=== PATIENT | male | born 1935 | race Caucasian/White ===

== ENCOUNTER 2022-11-08 16:12 | Emergency (ER) | payer MEDICARE, SELFPAY ==
[2022-11-08] VITALS (15 sets, daily range): BP systolic 109–148; BP diastolic 57–81; PULSE 58–70; RESP 13–24; TEMP 36.4; O2SAT 94–98; BMI 25.5
--- NOTE | 2022-11-08 16:37 | ED.GENADUL1 ---
HPI - General Adult General Chief complaint: Dizziness Stated complaint: WEAKNESS Time Seen by Provider: 11/08/22 16:28 Source: patient Mode of arrival: Wheelchair Limitations: no limitations History of Present Illness HPI narrative: this very pleasant gentleman was at a shop today when he got his right thumb caught in a vice. He says it was quite uncomfortable and started bleeding. He says he really does not like the sight of blood. Before this event occurred he felt fine going to the shop. After it happened he saw the blood and got woozy and lightheaded. He called for his family assistance and they said he was bent over and was pale and clammy. After about ten more minutes after driving him here to the hospital he felt fine and is doing fine at this time. Again before although security was good until he pinched his thumb with device and he started bleeding. He ended up putting a Band-Aid on his thumb and it stopped bleeding and it's not bleeding at this time. He does take L request because she has atrial fibrillation. He has a cardiac pacemaker but not a defibrillator. Related Data Home Medications Medication Instructions Recorded Confirmed rivaroxaban 20 mg tablet (Xarelto) 20 mg PO DAILY 11/08/22 11/08/22 Allergies Allergy/AdvReac Type Severity Reaction Status Date / Time Penicillins Allergy Severe Rash Verified 11/08/22 16:14 [facility] Social History Smoking status: Never smoker Exam Narrative Exam Narrative: This document has been composed with a new electronic medical record and dragging voice recognition system. This document may not fully inaccurately reflect the entirety of the patient encounter. Patient's awake alert pulse oximetry is ninety-six percent on room air he is in no distress the bleeding is stopped he says he feels fine at this time and has no symptoms at all. Constitutional skin is warm and dry No pallor or diaphoresis. No ecchymosis or hematomas are noted. Examination of his chest shows his lungs to be clear with no wheezes rales or rhonchi, heart sounds are consistent with atrial fibrillation with slow ventricular response as noted on his EKG.I hear no murmur. Legs show no evidence of swelling edema or deep vein thrombosis. Neurological he is awake alert cognitions good does wear hearing aids but he communicates very effectively he says he feels fine at this time. Constitutional Vital Signs, click to edit/add: Last Vital Signs Temp 97.6 F 11/08/22 16:15 Pulse 60 11/08/22 16:15 Resp 16 11/08/22 16:15 BP 109/57 11/08/22 16:15 Pulse Ox 98 11/08/22 16:15 O2 Del Method Room Air 11/08/22 16:15 Course Vital Signs Vital signs: Vital Signs Temperature 97.6 F 11/08/22 16:15 Pulse Rate 60 11/08/22 16:15 Respiratory Rate 16 11/08/22 16:15 Blood Pressure 109/57 11/08/22 16:15 Pulse Oximetry 98 11/08/22 16:15 Oxygen Delivery Method Room Air 11/08/22 16:15 Temperature 97.6 F 11/08/22 16:15 Pulse Rate 60 11/08/22 16:15 Respiratory Rate 16 11/08/22 16:15 Blood Pressure 109/57 11/08/22 16:15 Pulse Oximetry 98 11/08/22 16:15 Oxygen Delivery Method Room Air 11/08/22 16:15 Medical Decision Making MDM Narrative Medical decision making narrative: patient had a minor but painful injury to his thumb was some bleeding and what clinically is consistent with a vasovagal reaction. He does not show any acute deterioration or unstable vital signs here in the Emergency Room. His EKG shows atrial fibrillation controlled ventricular response and a appropriate functioning pacemaker. Laboratory testing was normal. He remained asymptomatic. I do not believe he needs to be admitted for any further testing at this time. Lab Data Labs: Lab Results 11/08/22 Range/Units 16:50 WBC 8.6 (4.0-11.0) 10^3/uL RBC 4.13 L (4.70-6.10) 10^6/uL Hgb 13.2 L (14.0-18.0) g/dL Hct 38.8 L (42.0-54.0) % MCV 93.9 (80.0-94.0) fL MCH 32.0 (25.9-34.0) pg MCHC 34.0 (29.9-35.2) g/dL RDW 13.0 (11.0-15.0) % Plt Count 224 (150-450) 10^3/uL MPV 9.6 (9.5-13.5) fL Neut % (Auto) 60.7 (43.0-75.0) % Lymph % (Auto) 20.0 L (20.5-60.0) % [place] % (Auto) 10.4 (1.7-12.0) % Eos % (Auto) 7.6 H (0.9-7.0) % Baso % (Auto) 0.8 (0.2-2.0) % Neut # (Auto) 5.2 (1.4-6.5) 10^3/uL Lymph # (Auto) 1.7 (1.2-3.8) 10^3/uL [place] # (Auto) 0.9 H (0.3-0.8) 10^3/uL Eos # (Auto) 0.7 (0.0-0.7) 10^3/uL Baso # (Auto) 0.1 (0.0-0.1) 10^3/uL Abs Immat Gran (auto) 0.04 H (0.00-0.03) 10^3/uL Imm/Tot Granulo (auto) 0.5 (0.0-0.5) % Sodium 138 (136-145) mmol/L Potassium 5.8 H (3.5-5.1) mmol/L Chloride 102 (98-107) mmol/L Carbon Dioxide 29.8 (21.0-32.0) mmol/L Anion Gap 12.0 BUN 41.0 H (7.0-18.0) mg/dL Creatinine 1.86 H (0.70-1.30) mg/dL Est GFR ( Amer) 42 L (>=60) Est GFR (Non-Af Amer) 35 L (>=60) BUN/Creatinine Ratio 22.0 Glucose 202 H (74-106) mg/dL Lactate 1.8 (0.4-2.0) mmol/L Calcium 9.8 (8.5-10.1) mg/dL Total Bilirubin 0.6 (0.2-1.0) mg/dL AST 25 (15-37) U/L ALT 38 (16-63) U/L Alkaline Phosphatase 75 (46-116) U/L Troponin I High Sens 34.5 (4.0-76.1) pg/mL Total Protein 8.1 (6.4-8.2) g/dL Albumin 4.0 (3.4-5.0) g/dL Globulin 4.1 g/dL Albumin/Globulin Ratio 1.0 Discharge Plan Discharge Chief Complaint: Dizziness Clinical Impression: Vaso-vagal reaction Time of Disposition Decision: 18:04 Condition: Good Prescriptions / Home Meds: No Action Xarelto 20 mg tablet 20 mg PO DAILY Instructions: Lightheadedness (ED) Stand Alone Forms: Portal Instructions Referrals: CHEPE BENTLEY [Primary Care Provider] - 1 week
--- NOTE | 2022-11-08 16:42 | ECG_ITS ---
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
[2022-11-08 17:01] LABS: Basophils Absolute Auto 0.1 10^3/uL (0.0-0.1); Basophils Percent Auto 0.8 % (0.2-2.0); Eosinophils Absolute Auto 0.7 10^3/uL (0.0-0.7); Eosinophils Percent Auto 7.6 % (0.9-7.0); Hematocrit 38.8 % (42.0-54.0); Hemoglobin 13.2 g/dL (14.0-18.0); Immature Granulocytes Abs Auto 0.04 10^3/uL (0.00-0.03); Immature Granulocytes Pct Auto 0.5 % (0.0-0.5); Lymphocytes Absolute Auto 1.7 10^3/uL (1.2-3.8); Mean Corpuscular Volume 93.9 fL (80.0-94.0); Mean Platelet Volume 9.6 fL (9.5-13.5); Monocytes Absolute Auto 0.9 10^3/uL (0.3-0.8); Monocytes Percent Auto 10.4 % (1.7-12.0); Neutrophils Absolute Auto 5.2 10^3/uL (1.4-6.5); Neutrophils Percent Auto 60.7 % (43.0-75.0); Platelet Count 224 10^3/uL (150-450); Red Blood Count 4.13 10^6/uL (4.70-6.10); White Blood Count 8.6 10^3/uL (4.0-11.0)
--- NOTE | 2022-11-08 17:08 | XR_ITS ---
The [address] [address] Patient Name: JAMEL BONDS MRN: [id number] date: 1935 Sex: M Assigned Patient Location: ED.MAIN Current Patient Location: ER Accession/Order Number: [id number] Exam Date: 11/08/2022 17:05 Report Date: 11/08/2022 17:51 At the request of: ZENY SANDOVAL Procedure: XR chest 1V EXAM: XR chest 1V HISTORY: near syncope COMPARISON: 04/02/2017 TECHNIQUE: Chest X-ray AP, 1 view FINDINGS: Support devices: Left-sided wall lead pacer device with distal leads overlying the right atrium and right ventricle. Right internal jugular approach Mediport catheter is in place. Lungs/pleura: No consolidation, effusion, or pneumothorax. Heart and mediastinum: Normal contours. Bones: No acute abnormality identified. XR/XR chest 1V Impression: No radiographic evidence of acute cardiopulmonary process. Electronically authenticated by: TINO MENSAH Date: 11/08/2022 17:51
[2022-11-08 17:16] LABS: Lactate/Lactic Acid 1.8 mmol/L (0.4-2.0)
[2022-11-08 17:23] LABS: Alanine Aminotransferase 38 U/L (16-63); Alkaline Phosphatase 75 U/L (46-116); Aspartate Amino Transferase 25 U/L (15-37); Bilirubin Total 0.6 mg/dL (0.2-1.0); Calcium 9.8 mg/dL (8.5-10.1); Carbon Dioxide 29.8 mmol/L (21.0-32.0); Chloride 102 mmol/L (98-107); Estimated GFR (African America 42 (>=60); Estimated GFR (Non-African Ame 35 (>=60); Globulin 4.1 g/dL; Glucose 202 mg/dL (74-106); Potassium 5.8 mmol/L (3.5-5.1); Sodium 138 mmol/L (136-145); Total Protein 8.1 g/dL (6.4-8.2); Troponin I High Sensitivity 34.5 pg/mL (4.0-76.1)
== END 2022-11-08 18:26 | disposition home or self-care (01) ==
PROVIDERS: Emergency Provider Emergency Medicine Emergency Medical Services; PCP Nurse Practitioner Family
DX: R55 Syncope and collapse (principal); I48.91 Unspecified atrial fibrillation; Z95.0 Presence of cardiac pacemaker; Z79.01 Long term (current) use of anticoagulants
CPT/HCPCS: 36415; 71045; 80053; 83605; 84484; 85025; 93005; 99285

== ENCOUNTER 2024-06-19 15:47 | Observation (INO) | payer MEDICARE, SELFPAY ==
[2024-06-19] VITALS (31 sets, daily range): BP systolic 137–164; BP diastolic 74–76; PULSE 58–64; TEMP 36.7–37.6; O2SAT 90–96; BMI 26.6; BMI 27.4
--- NOTE | 2024-06-19 16:06 | ECG_ITS ---
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 Measurements Intervals [place] Rate: 58 P: -58993 HI: -36551 QRS: -66 QRSD: 182 T: 117 QT: 476 QTc: 472 Interpretive Statements Atrial flutter 84476 Electronic ventricular pacemaker Abnormal ECG Compared to ECG 11/08/2022 16:17:11 Atrial flutter has replaced Atrial fibrillation Electronically Signed On 06-19-2024 20:43:45 EDT by JACINDA CHIRINOS M.D.
[2024-06-19 16:15] LABS: Basophils Absolute Auto 0.1 10^3/uL (0.0-0.1); Basophils Percent Auto 0.6 % (0.2-2.0); Eosinophils Absolute Auto 0.3 10^3/uL (0.0-0.7); Eosinophils Percent Auto 2.2 % (0.9-7.0); Hematocrit 38.9 % (42.0-54.0); Hemoglobin 13.2 g/dL (14.0-18.0); Immature Granulocytes Abs Auto 0.03 10^3/uL (0.00-0.03); Immature Granulocytes Pct Auto 0.3 % (0.0-0.5); Lymphocytes Percent Auto 9.2 % (20.5-60.0); Mean Corpuscular HGB Conc 33.9 g/dL (29.9-35.2); Mean Corpuscular Hemoglobin 33.6 pg (25.9-34.0); Monocytes Absolute Auto 1.2 10^3/uL (0.3-0.8); Neutrophils Absolute Auto 8.6 10^3/uL (1.4-6.5); Neutrophils Percent Auto 76.7 % (43.0-75.0); Platelet Count 226 10^3/uL (150-450); Red Blood Count 3.93 10^6/uL (4.70-6.10); Red Cell Distribution Width 13.7 % (11.0-15.0); White Blood Count 11.3 10^3/uL (4.0-11.0)
[2024-06-19 16:27] LABS: Influenza Virus A Antigen Negative; Influenza Virus B Antigen Negative; Internal Control Within Normal Limits; SARS-CoV-2 Ag NEGATIVE (NEGATIVE)
[2024-06-19 16:33] LABS: Anion Gap 12.4
[2024-06-19 16:40] LABS: Alanine Aminotransferase 21 U/L (16-63); Albumin Level 3.6 g/dL (3.4-5.0); Alkaline Phosphatase 69 U/L (46-116); Aspartate Amino Transferase 27 U/L (15-37); BUN Creatinine Ratio 19.3; Bilirubin Total 0.8 mg/dL (0.2-1.0); Carbon Dioxide 32.1 mmol/L (21.0-32.0); Chloride 99 mmol/L (98-107); Estimated GFR (African America 36 (>=60 mL/min/1.73m^2); Estimated GFR (Non-African Ame 30 (>=60 mL/min/1.73m^2); Globulin 3.6 g/dL; Glucose 141 mg/dL (74-106); Magnesium 2.2 mg/dL (1.8-2.4); Potassium 5.5 mmol/L (3.5-5.1); Sodium 138 mmol/L (136-145); Total Protein 7.2 g/dL (6.4-8.2); Troponin I High Sensitivity 47.3 pg/mL (4.0-76.1)
--- NOTE | 2024-06-19 16:43 | ED_ITS ---
HPI - Altered Mental Status General Chief Complaint: Altered Mental Status Stated Complaint: General WEAKNESS Time Seen by Provider: 06/19/24 16:00 Source: family Mode of arrival: ambulance History of Present Illness HPI narrative: cc -confusion with flulike illness The gives the majority of the history. Patient was brought in by EMS for evaluation after the noticed increasing confusion over the last 24 hours. Patient has been increasingly weak, fatigued following development of a flulike illness a few days ago. Patient has cough and congestion without fever at home. No GI or symptoms. No known ill contacts. Patient denies any pain or focal weakness. He just says he has no energy. said he has not been eating the way that he normally does but she believes he has been taking an appropriate amount of fluids. Related Data Home Medications ?Medication ?Instructions ?Recorded ?Confirmed rivaroxaban 20 mg tablet (Xarelto) 20 mg PO DAILY 11/08/22 06/19/24 atorvastatin 40 mg tablet 40 mg PO .qhs 06/19/24 06/19/24 dapagliflozin propanediol 10 mg 10 mg PO QAM 06/19/24 06/19/24 tablet (Farxiga) digoxin 125 mcg (0.125 mg) tablet 0.125 mg PO QDAY 06/19/24 06/19/24 fluoxetine 20 mg capsule 20 mg PO QAM 06/19/24 06/19/24 furosemide 40 mg tablet 40 mg PO QDAY 06/19/24 06/19/24 insulin aspar prot-insulin aspart 38 unit subcut TIDWMEAL 06/19/24 06/19/24 100 unit/mL (70-30) subcutaneous pen (Novolog Mix 70-30FlexPen U-100) levothyroxine 25 mcg tablet 25 mcg PO QAM 06/19/24 06/19/24 losartan 50 mg tablet 50 mg PO QDAY 06/19/24 06/19/24 metoprolol succinate 25 mg 25 mg PO QDAY 06/19/24 06/19/24 tablet,extended release 24 hr rivaroxaban 15 mg tablet (Xarelto) 15 mg PO BID 06/19/24 06/19/24 tamsulosin 0.4 mg capsule 0.4 mg PO Q24H 06/19/24 06/19/24 tizanidine 2 mg capsule 2 mg PO .qhs PRN muscle spasticity 06/19/24 06/19/24 tramadol 50 mg tablet 50 mg PO Q12H PRN pain 06/19/24 06/19/24 triamcinolone acetonide 0.025 % 1 applic topical QDAY PRN rash 06/19/24 06/19/24 topical cream Allergies Allergy/AdvReac Type Severity Reaction Status Date / Time Penicillins Allergy Severe Rash Verified 06/19/24 15:53 PFSH PFSH Social History Smoking status: Never smoker Little interest or pleasure in doing things: not at all Feeling down, depressed, or hopeless: not at all Exam Narrative Exam Narrative: Nurses notes and vital signs reviewed and patient is not hypoxic. afebrile General: Well-appearing and in no apparent distress. Skin: Warm, dry, no pallor noted. No rash. Head: Normocephalic, atraumatic. Neck: Supple, non-tender. No lymphadenopathy. No meningismus. Eye: Pupils are equal, round and EOMI. No scleral icterus. Ears, Nose, Mouth, and Throat: TM are clear, no posterior oropharynx erythema, uvula is mid-line. Oral mucosa is moist. Nasal mucosal hypertrophy Cardiovascular: Regular Rate and Rhythm without murmur, gallop or rub/borderline bradycardia. Respiratory: No accessory muscle use or respiratory distress. Lungs with bibasilar rales Musculoskeletal: normal ROM, no calf or popliteal tenderness, no lower extremity edema/swelling GI: Abdomen is soft, non-distended. Normal bowel sounds. No tenderness to palpation. No rebound, guarding, or rigidity noted. Neurological: A&O x4 but has some trouble answering questions. The says his awareness and mental acuity is less than normal. No cranial nerve dysfunction observed. No truncal ataxia. Moves all extremities. Sensation intact. Psychiatric: Cooperative and interactive. Normal mood and affect. Constitutional Vital Signs, click to edit/add: Last Vital Signs Temp 98.9 F 06/19/24 15:53 Pulse 60 06/19/24 17:40 Resp 15 06/19/24 17:40 BP 149/76 H 06/19/24 15:53 Pulse Ox 94 L 06/19/24 17:40 O2 Del Method Room Air 06/19/24 15:53 Course Vital Signs Vital signs: Vital Signs Temperature 98.9 F 06/19/24 15:53 Pulse Rate 58 L 06/19/24 15:53 Respiratory Rate 18 06/19/24 15:53 Blood Pressure 149/76 H 06/19/24 15:53 Pulse Oximetry 96 06/19/24 15:53 Oxygen Delivery Method Room Air 06/19/24 15:53 Temperature 98.9 F 06/19/24 15:53 Pulse Rate 60 06/19/24 17:40 Respiratory Rate 15 06/19/24 17:40 Blood Pressure 149/76 H 06/19/24 15:53 Pulse Oximetry 94 L 06/19/24 17:40 Oxygen Delivery Method Room Air 06/19/24 15:53 MDM - Altered Mental Status MDM Narrative Medical decision making narrative: Swabs for COVID and influenza were obtained. Portable chest x-ray obtained. Blood and urine obtained and sent for testing as well. He was given 1L nS IVF. He tested for COVID and influenza. Chest x-ray negative. White blood cell count minimally elevated 11.3. Electrolytes show elevated potassium at 5.5. BUN and creatinine are elevated at 41 and 2.1, respectively. Pt ordered to receive IV insulin, D50, calcium and bicarbonate, along with additional NS IVF Troponin negative. BNP elevated at 4285, likely associated with elevated BUN/creatinine. Magnesium normal at 2.2. LFTs negative. Urinalysis - negative. and I discussed the patient's results - she sad that he does not have prior history of kidney disease. I called and spoke with Dr Paniagua - we will admit the pt to telemetry, obs, for treatment of the hyperkalemia and acute renal injury. He also has a flu-like illness. Lab Data Attestation: I reviewed the patient's lab results. Labs: Lab Results 06/19/24 06/19/24 06/19/24 Range/Units 16:00 16:05 17:10 WBC 11.3 H (4.0-11.0) 10^3/uL RBC 3.93 L (4.70-6.10) 10^6/uL Hgb 13.2 L (14.0-18.0) g/dL Hct 38.9 L (42.0-54.0) % MCV 99.0 H (80.0-94.0) fL MCH 33.6 (25.9-34.0) pg MCHC 33.9 (29.9-35.2) g/dL RDW 13.7 (11.0-15.0) % Plt Count 226 (150-450) 10^3/uL MPV 10.0 (9.5-13.5) fL Neut % (Auto) 76.7 H (43.0-75.0) % Lymph % (Auto) 9.2 L (20.5-60.0) % [place] % (Auto) 11.0 (1.7-12.0) % Eos % (Auto) 2.2 (0.9-7.0) % Baso % (Auto) 0.6 (0.2-2.0) % Neut # (Auto) 8.6 H (1.4-6.5) 10^3/uL Lymph # (Auto) 1.0 L (1.2-3.8) 10^3/uL [place] # (Auto) 1.2 H (0.3-0.8) 10^3/uL Eos # (Auto) 0.3 (0.0-0.7) 10^3/uL Baso # (Auto) 0.1 (0.0-0.1) 10^3/uL Abs Immat Gran (auto) 0.03 (0.00-0.03) 10^3/uL Imm/Tot Granulo (auto) 0.3 (0.0-0.5) % Sodium 138 (136-145) mmol/L Potassium 5.5 H (3.5-5.1) mmol/L Chloride 99 (98-107) mmol/L Carbon Dioxide 32.1 H (21.0-32.0) mmol/L Anion Gap 12.4 BUN 41.0 H (7.0-18.0) mg/dL Creatinine 2.12 H (0.70-1.30) mg/dL Est GFR ( Amer) 36 L (>=60 mL/min/1.73m^2) Est GFR (Non-Af Amer) 30 L (>=60 mL/min/1.73m^2) BUN/Creatinine Ratio 19.3 Glucose 141 H (74-106) mg/dL Calcium 9.0 (8.5-10.1) mg/dL Magnesium 2.2 (1.8-2.4) mg/dL Total Bilirubin 0.8 (0.2-1.0) mg/dL AST 27 (15-37) U/L ALT 21 (16-63) U/L Alkaline Phosphatase 69 (46-116) U/L Troponin I High Sens 47.3 (4.0-76.1) pg/mL NT-Pro-B Natriuret Pep 4285.0 H* (<=1800.0) pg/mL Total Protein 7.2 (6.4-8.2) g/dL Albumin 3.6 (3.4-5.0) g/dL Globulin 3.6 g/dL Albumin/Globulin Ratio 1.0 Urine Color Lt. yellow (YELLOW) Urine Clarity Clear (CLEAR) Urine pH 7.5 (5.0-9.0) Ur Specific [place] 1.015 (1.005-1.025) Urine Protein 30 A (NEG/TRACE) mg/dL Urine Glucose (UA) 500 A (NEGATIVE) mg/dL Urine Ketones Negative (NEGATIVE) mg/dL Urine Occult Blood Negative (NEGATIVE) Urine Nitrite Negative (NEGATIVE) Urine Bilirubin Negative (NEGATIVE) Urine Urobilinogen 0.2 (0.2-1.0) EU/dL Ur Leukocyte Esterase Negative (NEGATIVE) Urine RBC 0-2 (0-2) #/HPF Urine WBC 0-2 A (NONE SEEN) #/HPF Ur Squamous Epith Cells Rare (NONE/RARE) #/LPF Urine Crystals None seen (None Seen) #/HPF Urine Bacteria Trace A (NONE SEEN) #/HPF Urine Casts None seen (NONE SEEN) #/LPF Urine Mucus Trace A (NONE SEEN) Ur Culture Indicated? No Influenza Type A Ag Negative Influenza Type B Ag Negative SARS-CoV-2 Ag (CV2AG) Negative (NEGATIVE) Imaging Data Chest x-ray: Radiologist's impression: No acute cardiopulmonary process ECG Data Attestation: I personally reviewed and interpreted this ECG as follows: Interpretation: EKG interpretation: Emergency Department physician interpretation. Electronic ventricular pacemaker Discharge Plan Discharge Chief Complaint: Altered Mental Status Clinical Impression: Acute hyperkalemia, Acute kidney injury, Acute confusion, Viral illness Patient Disposition: Admitted as Observation Time of Disposition Decision: 17:58 Additional Instructions: Dr Paniagua's service
[2024-06-19 17:42] LABS: Bilirubin Urine NEGATIVE (NEGATIVE); Blood Urine NEGATIVE (NEGATIVE); Clarity Urine CLEAR (CLEAR); Color Urine LT. YELLOW (YELLOW); Glucose Urine UA 500 mg/dL (NEGATIVE); Ketones Urine NEGATIVE (NEGATIVE); Leukocyte Esterase Urine NEGATIVE (NEGATIVE); Nitrite Urine NEGATIVE (NEGATIVE); Protein Urine 30 mg/dL (NEG/TRACE); Specific Gravity Urine 1.015 (1.005-1.025); Urobilinogen Urine 0.2 EU/dL (0.2-1.0); pH Urine 7.5 (5.0-9.0)
[2024-06-19 17:50] LABS: Bacteria Urine TRACE #/HPF (NONE SEEN); Cast Seen? NONE SEEN #/LPF (NONE SEEN); Crystals Seen? None Seen #/HPF (None Seen); Mucus Urine TRACE (NONE SEEN); RBC Urine 0-2 #/HPF (0-2); Squamous Epithelial Cell Urine RARE #/LPF (NONE/RARE); Urine Culture Indicated NO; WBC Urine 0-2 #/HPF (NONE SEEN)
[2024-06-19] MEDS: CALCIUM GLUCONATE 1,000 MG/10 ML VIAL 1000 MG IVP (18:14)
[2024-06-19] MEDS: INSULIN REGULAR, HUMAN (100 UNIT/ML) 10 ML MDV 10 UNIT IV (18:25)
[2024-06-19] MEDS: DEXTROSE 50 %-WATER 25 GM/50 ML SYRINGE IV (18:27)
[2024-06-19] MEDS: SODIUM BICARBONATE 8.4 % 50 MEQ/50 ML SYRINGE IV (18:30)
[2024-06-19] MEDS: TRAMADOL HCL 50 MG TABLET PO (18:39)
[2024-06-19] MEDS: 0.9 % SODIUM CHLORIDE 1,000 ML 200 ML IV (18:40)
--- NOTE | 2024-06-19 19:10 | P.HP_ITS ---
HPI H&P: HPI History of Present Illness Chief complaint: General WEAKNESS Narrative: Patient had no concerns yesterday, woke up this morning and just fatigued and went back to bed and, just having increasing weakness and fatigue since that time, denies chest pain does have a slight cough, no abdominal complaints swelling he says is at his baseline in his lower extremities when I saw patient in the emergency room, resting comfortably in bed, just very somnolent falling asleep easily, again did not complain of anything different just the fatigue Opioid HPI Opioid Management Most Recent Pain and Opioid Data: Last MAY Pain Assessment 06/19/24 18:39 Review of Systems ROS Status of ROS 10 or more systems reviewed and unremark able except as noted in history and below PFSH PFSH Social History Smoking status: Never smoker Little interest or pleasure in doing things: not at all Feeling down, depressed, or hopeless: not at all Meds Home Medications and Allergies Home Medications ?Medication ?Instructions ?Recorded ?Confirmed ?Type rivaroxaban 20 mg tablet (Xarelto) 20 mg PO DAILY 11/08/22 06/19/24 History atorvastatin 40 mg tablet 40 mg PO .qhs 06/19/24 06/19/24 History dapagliflozin propanediol 10 mg 10 mg PO QAM 06/19/24 06/19/24 History tablet (Farxiga) digoxin 125 mcg (0.125 mg) tablet 0.125 mg PO QDAY 06/19/24 06/19/24 History fluoxetine 20 mg capsule 20 mg PO QAM 06/19/24 06/19/24 History furosemide 40 mg tablet 40 mg PO QDAY 06/19/24 06/19/24 History insulin aspar prot-insulin aspart 38 unit subcut TIDWMEAL 06/19/24 06/19/24 History 100 unit/mL (70-30) subcutaneous pen (Novolog Mix 70-30FlexPen U-100) levothyroxine 25 mcg tablet 25 mcg PO QAM 06/19/24 06/19/24 History losartan 50 mg tablet 50 mg PO QDAY 06/19/24 06/19/24 History metoprolol succinate 25 mg 25 mg PO QDAY 06/19/24 06/19/24 History tablet,extended release 24 hr rivaroxaban 15 mg tablet (Xarelto) 15 mg PO BID 06/19/24 06/19/24 History tamsulosin 0.4 mg capsule 0.4 mg PO Q24H 06/19/24 06/19/24 History tizanidine 2 mg capsule 2 mg PO .qhs PRN muscle spasticity 06/19/24 06/19/24 History tramadol 50 mg tablet 50 mg PO Q12H PRN pain 06/19/24 06/19/24 History triamcinolone acetonide 0.025 % 1 applic topical QDAY PRN rash 06/19/24 06/19/24 History topical cream Allergies Allergy/AdvReac Type Severity Reaction Status Date / Time Penicillins Allergy Severe Rash Verified 06/19/24 15:53 Exam Constitutional Vital Signs, click to edit/add: Last Vital Signs Temp 99.6 F 06/19/24 18:40 Pulse 60 06/19/24 18:40 Resp 16 06/19/24 18:40 BP 151/74 H 06/19/24 18:40 Pulse Ox 93 L 06/19/24 18:40 O2 Del Method Room Air 06/19/24 18:40 Documenting provider has reviewed patient's vital signs: yes Common normals: apparent distress (Appears fatigued) Chest Common normals: inspection of chest normal Respiratory Common normals: normal respiratory effort, no retractions and clear to auscultation bilaterally Cardio Common normals: regular rate and no murmurs; irregular rhythm Rhythm: abnormal rhythm GI Common normals: Normal to inspection, nondistended, normoactive bowel sounds present, soft to palpation and non-tender Extremity Common normals: abnormal to inspection (2+ edema, has baseline) General: normal exam except as noted Results Labs Labs: Short CBC 06/19/24 Range/Units 16:05 WBC 11.3 H (4.0-11.0) 10^3/uL Hgb 13.2 L (14.0-18.0) g/dL Hct 38.9 L (42.0-54.0) % Plt Count 226 (150-450) 10^3/uL BMP 06/19/24 16:05 Sodium 138 Potassium 5.5 H Chloride 99 Carbon Dioxide 32.1 H BUN 41.0 H Creatinine 2.12 H Glucose 141 H Calcium 9.0 Liver Function 06/19/24 Range/Units 16:05 Total Bilirubin 0.8 (0.2-1.0) mg/dL AST 27 (15-37) U/L ALT 21 (16-63) U/L Alkaline Phosphatase 69 (46-116) U/L Albumin 3.6 (3.4-5.0) g/dL Urine 06/19/24 Range/Units 17:10 Urine Color Lt. yellow (YELLOW) Urine Clarity Clear (CLEAR) Urine pH 7.5 (5.0-9.0) Ur Specific [place] 1.015 (1.005-1.025) Urine Protein 30 A (NEG/TRACE) mg/dL Urine Glucose (UA) 500 A (NEGATIVE) mg/dL Assessment and Plan Assessment and Plan (1) Acute confusion: (2) Acute kidney injury: (3) Acute hyperkalemia: Plan Admission findings: Mild respiratory distress, mild leukocytosis, hyperkalemia and acute kidney injury stage II with a baseline creatinine of 1.0, admission creatinine over 2 with decreased urine output would make it acute kidney injury stage II Likely viral illness resulting in severe fatigue, mild altered mental status- will check CT scan of head, no nuchal rigidity to warrant or suggest meningitis Acute kidney injury stage II-gentle IV fluids as he has elevated BNP but this is likely secondary to the acute kidney injury, troponin negative Hyperkalemia-given multiple things in ER we will just repeat in a.m. Hyperglycemia-repeat in a.m. Elevated BNP-it is uncertain what his baseline is Diabetes mellitus-insulin sliding scale Atrial flutter-rate fairly controlled, check Lanoxin level, maintain on chronic anticoagulation Chronic combined congestive heart failure-hold medications currently Hypertension-continue with home medications except holding losartan BPH-continue with home medications Low back pain continue with home medications Admission status patient with acute kidney injury stage II-slightly better than 50% chance of being improved to the point that he can be discharged home tomorrow's will start patient off as observation status, if not significantly improved tomorrow will require inpatient admission as he will be treated with medically necessary treatment over 2 midnights Urinary Catheter Management Urinary Catheter Management Straight: Cath placed during this visit: yes Urethral indwelling: Yes Reason for continuing: measure accurate output Insertion date: 06/19/24 Insertion time: 17:16
[2024-06-19 22:03] LABS: Hematocrit 38.5 % (42.0-54.0); Hemoglobin 12.9 g/dL (14.0-18.0); Mean Corpuscular HGB Conc 33.5 g/dL (29.9-35.2); Mean Corpuscular Hemoglobin 33.4 pg (25.9-34.0); Mean Corpuscular Volume 99.7 fL (80.0-94.0); Mean Platelet Volume 9.8 fL (9.5-13.5); Platelet Count 230 10^3/uL (150-450); Red Blood Count 3.86 10^6/uL (4.70-6.10); Red Cell Distribution Width 13.8 % (11.0-15.0); White Blood Count 11.3 10^3/uL (4.0-11.0)
[2024-06-19 22:09] LABS: Digoxin 0.8 ng/mL (0.9-2.0)
[2024-06-19 22:19] LABS: Glucometer 123 mg/dL (74-106)
[2024-06-19 22:21] LABS: Basophils Abs Manual 0.11 10^3/uL (0.00-0.10); Eosinophils Absolute Manual 0.11 10^3/uL (0.00-0.70); Lymphocytes Absolute Manual 1.24 10^3/uL (1.20-3.80); Monocytes Absolute Manual 1.13 10^3/uL (0.30-0.80)
[2024-06-19] MEDS: RIVAROXABAN 10 MG TABLET 15 MG PO (22:26)
[2024-06-19] MEDS: TAMSULOSIN HCL 0.4 MG CAPSULE PO (22:26)
[2024-06-19] MEDS: METOPROLOL SUCCINATE 25 MG TAB.ER.24H PO (22:26)
[2024-06-19] MEDS: DIGOXIN 125 MCG TABLET PO (22:27)
[2024-06-20] VITALS (11 sets, daily range): BP systolic 127–138; BP diastolic 64–69; PULSE 59–69; TEMP 36.7–36.8; O2SAT 90–95
[2024-06-20] MEDS: LACTATED RINGER'S SOLUTION 1,000 ML 75 ML IV (00:05)
[2024-06-20 02:12] LABS: BUN Creatinine Ratio 18.8; Calcium 8.6 mg/dL (8.5-10.1); Carbon Dioxide 29.9 mmol/L (21.0-32.0); Chloride 101 mmol/L (98-107); Estimated GFR (African America 40 (>=60 mL/min/1.73m^2); Estimated GFR (Non-African Ame 33 (>=60 mL/min/1.73m^2); Glucose 165 mg/dL (74-106); Potassium 4.9 mmol/L (3.5-5.1); Sodium 138 mmol/L (136-145)
[2024-06-20] MEDS: LEVOTHYROXINE SODIUM 25 MCG TABLET PO (06:04)
[2024-06-20 06:28] LABS: PCO2 VBG 35.3 mmHg (40.0-52.0); pH VBG 7.493 (7.330-7.430)
[2024-06-20 07:00] LABS: Digoxin 0.9 ng/mL (0.9-2.0)
[2024-06-20 07:06] LABS: Alanine Aminotransferase 19 U/L (16-63); Albumin Globulin Ratio 0.9; Alkaline Phosphatase 57 U/L (46-116); Aspartate Amino Transferase 17 U/L (15-37); BUN Creatinine Ratio 19.1; Bilirubin Total 0.6 mg/dL (0.2-1.0); Calcium 8.8 mg/dL (8.5-10.1); Carbon Dioxide 26.7 mmol/L (21.0-32.0); Chloride 101 mmol/L (98-107); Estimated GFR (African America 44 (>=60 mL/min/1.73m^2); Estimated GFR (Non-African Ame 36 (>=60 mL/min/1.73m^2); Globulin 3.4 g/dL; Glucose 130 mg/dL (74-106); Magnesium 2.1 mg/dL (1.8-2.4); Potassium 4.7 mmol/L (3.5-5.1); Sodium 136 mmol/L (136-145); Total Protein 6.4 g/dL (6.4-8.2)
[2024-06-20 07:13] LABS: Troponin I High Sensitivity 86.2 pg/mL (4.0-76.1)
[2024-06-20 07:27] LABS: Glucometer 157 mg/dL (74-106)
[2024-06-20] MEDS: METOPROLOL SUCCINATE 25 MG TAB.ER.24H PO (08:48)
[2024-06-20] MEDS: DIGOXIN 125 MCG TABLET PO (08:48)
[2024-06-20] MEDS: TAMSULOSIN HCL 0.4 MG CAPSULE PO (08:48)
[2024-06-20] MEDS: INSULIN ASPART 300 UNIT/3 ML PEN SUBQ (08:49)
[2024-06-20] MEDS: RIVAROXABAN 10 MG TABLET 15 MG PO (08:49)
[2024-06-20] MEDS: FLUOXETINE HCL 20 MG CAPSULE PO (08:49)
[2024-06-20] MEDS: INSULIN ASPART PROT/INSULN ASP 70/30 300 UNIT/3 ML INSULN.PEN 38 UNIT SUBQ (08:50)
--- NOTE | 2024-06-20 09:26 | P.DS_ITS ---
DS: Providers Provider Date of admission: 06/19/24 19:40 Primary care physician: CHEPE MICHAEL Consults: 06/19/24 Consult to [facility] Manager Routine Reason for consult:: Advanced Directives 06/19/24 19:02 Consult to Pharmacy Routine Consulting Provider: Reason for consultation: Please Coram me when Med Rec is Updated Has provider been notified: No DS: Diagnosis Discharge Diagnosis (1) Acute confusion: (2) Acute kidney injury: (3) Acute hyperkalemia: Plan Admission findings: Mild respiratory distress, mild leukocytosis, hyperkalemia and acute kidney injury stage II with a baseline creatinine of 1.0, admission creatinine over 2 with decreased urine output would make it acute kidney injury stage II Likely viral illness resulting in severe fatigue, mild altered mental status- will check CT scan of head, no nuchal rigidity to warrant or suggest meningitis Acute kidney injury stage II-gentle IV fluids as he has elevated BNP but this is likely secondary to the acute kidney injury, troponin negative Hyperkalemia-given multiple things in ER we will just repeat in a.m. Hyperglycemia-repeat in a.m. Elevated BNP-it is uncertain what his baseline is Elevated Trop - Acute NSTEMI - stable - [facility]ERSON for D/C - Stress test as OP Diabetes mellitus-insulin sliding scale Atrial flutter-rate fairly controlled, check Lanoxin level, maintain on chronic anticoagulation Chronic combined congestive heart failure-hold medications currently Hypertension-continue with home medications except holding losartan BPH-continue with home medications Low back pain continue with home medications Admission status patient with acute kidney injury stage II-slightly better than 50% chance of being improved to the point that he can be discharged home tomorrow's will start patient off as observation status, if not significantly improved tomorrow will require inpatient admission as he will be treated with medically necessary treatment over 2 midnights DS: Summary Hospital Course Hospital Course: Patient was seen and evaluated in the emergency room with altered mental status, worse than his baseline, increasing weakness, patient with difficulty ambulating, workup unremarkable for viral infection isolated, patient found to have significant hyperkalemia that was treated in the emergency room, given IV fluids overnight, white blood cell count slightly elevated with left shift, no infectious etiology found but now this morning has more sinus type symptoms, high-sensitivity troponin in the ER was negative, repeat is elevated consistent with acute NSTEMI with EKG that is normal, BNP elevated secondary to hydration given yesterday, creatinine is better, patient feels much improved and back to his baseline, at this point with the acute NSTEMI, troponin trending down, patient wants to go home, will try that back on his regular medicines but decrease the Lasix to 20, follow-up with PCP for decision on stress test secondary to what was outlined above, medication see list. See PCP within the n ext week Time Spent with Patient Time attestation: Total time spent providing and/or coordinating discharge services: Exam Constitutional Vital Signs, click to edit/add: Last Vital Signs Temp 98.3 F 06/20/24 07:35 Pulse 60 06/20/24 07:35 Resp 18 06/20/24 04:00 BP 127/64 06/20/24 07:35 Pulse Ox 95 06/20/24 04:06 O2 Del Method Room Air 06/20/24 04:06 Documenting provider has reviewed patient's vital signs: yes Common normals: no apparent distress (Much improved) Chest Common normals: inspection of chest normal Respiratory Common normals: normal respiratory effort, no retractions and clear to auscultation bilaterally Cardio Common normals: regular rate and no murmurs; irregular rhythm Rhythm: abnormal rhythm GI Common normals: Normal to inspection, nondistended, normoactive bowel sounds present, soft to palpation and non-tender Extremity Common normals: abnormal to inspection (2+ edema, has baseline) General: normal exam except as noted DS: Data Data Completed and Pending Labs on day of discharge: Labs from last 24 hours 06/20/24 06/20/24 06/20/24 07:26 06:13 02:00 WBC RBC Hgb Hct MCV MCH MCHC RDW Plt Count MPV Neut % (Auto) Lymph % (Auto) Mills % (Auto) Eos % (Auto) Baso % (Auto) Neut # (Auto) Lymph # (Auto) Mills # (Auto) Eos # (Auto) Baso # (Auto) Abs Immat Gran (auto) Seg Neuts % (Manual) Lymphocytes % (Manual) Monocytes % (Manual) Eosinophils % (Manual) Basophils % (Manual) Imm/Tot Granulo (auto) Neutrophils # (Manual) Lymphocytes # (Manual) Monocytes # (Manual) Eosinophils # (Manual) Basophils # (Manual) VBG pH 7.493 H VBG pCO2 35.3 L Sodium 136 138 Potassium 4.7 4.9 Chloride 101 101 Carbon Dioxide 26.7 29.9 Anion Gap 13.0 12.0 BUN 34.0 H 36.0 H Creatinine 1.78 H 1.92 H Est GFR ( Amer) 44 L 40 L Est GFR (Non-Af Amer) 36 L 33 L BUN/Creatinine Ratio 19.1 18.8 Glucose 130 H 165 H Calcium 8.8 8.6 Magnesium 2.1 Total Bilirubin 0.6 AST 17 ALT 19 Alkaline Phosphatase 57 Troponin I High Sens 86.2 H* NT-Pro-B Natriuret Pep 8533.0 H* Total Protein 6.4 Albumin 3.0 L Globulin 3.4 Albumin/Globulin Ratio 0.9 Urine Color Urine Clarity Urine pH Ur Specific [place] Urine Protein Urine Glucose (UA) Urine Ketones Urine Occult Blood Urine Nitrite Urine Bilirubin Urine Urobilinogen Ur Leukocyte Esterase Urine RBC Urine WBC Ur Squamous Epith Cells Urine Crystals Urine Bacteria Urine Casts Urine Mucus Ur Culture Indicated? Digoxin 0.9 Influenza Type A Ag Influenza Type B Ag SARS-CoV-2 Ag (CV2AG) POC Glucose 157 H 06/19/24 06/19/24 06/19/24 22:18 21:32 17:10 WBC 11.3 H RBC 3.86 L Hgb 12.9 L Hct 38.5 L MCV 99.7 H MCH 33.4 MCHC 33.5 RDW 13.8 Plt Count 230 MPV 9.8 Neut % (Auto) Lymph % (Auto) Mills % (Auto) Eos % (Auto) Baso % (Auto) Neut # (Auto) Lymph # (Auto) Mills # (Auto) Eos # (Auto) Baso # (Auto) Abs Immat Gran (auto) Seg Neuts % (Manual) 77.0 H Lymphocytes % (Manual) 11.0 L Monocytes % (Manual) 10.0 Eosinophils % (Manual) 1.0 Basophils % (Manual) 1.0 Imm/Tot Granulo (auto) Neutrophils # (Manual) 8.70 H Lymphocytes # (Manual) 1.24 Monocytes # (Manual) 1.13 H Eosinophils # (Manual) 0.11 Basophils # (Manual) 0.11 H VBG pH VBG pCO2 Sodium Potassium Chloride Carbon Dioxide Anion Gap BUN Creatinine Est GFR ( Amer) Est GFR (Non-Af Amer) BUN/Creatinine Ratio Glucose Calcium Magnesium Total Bilirubin AST ALT Alkaline Phosphatase Troponin I High Sens NT-Pro-B Natriuret Pep Total Protein Albumin Globulin Albumin/Globulin Ratio Urine Color Lt. yellow Urine Clarity Clear Urine pH 7.5 Ur Specific [place] 1.015 Urine Protein 30 A Urine Glucose (UA) 500 A Urine Ketones Negative Urine Occult Blood Negative Urine Nitrite Negative Urine Bilirubin Negative Urine Urobilinogen 0.2 Ur Leukocyte Esterase Negative Urine RBC 0-2 Urine WBC 0-2 A Ur Squamous Epith Cells Rare Urine Crystals None seen Urine Bacteria Trace A Urine Casts None seen Urine Mucus Trace A Ur Culture Indicated? No Digoxin 0.8 L Influenza Type A Ag Influenza Type B Ag SARS-CoV-2 Ag (CV2AG) POC Glucose 123 H 06/19/24 06/19/24 16:05 16:00 WBC 11.3 H RBC 3.93 L Hgb 13.2 L Hct 38.9 L MCV 99.0 H MCH 33.6 MCHC 33.9 RDW 13.7 Plt Count 226 MPV 10.0 Neut % (Auto) 76.7 H Lymph % (Auto) 9.2 L Mills % (Auto) 11.0 Eos % (Auto) 2.2 Baso % (Auto) 0.6 Neut # (Auto) 8.6 H Lymph # (Auto) 1.0 L Mills # (Auto) 1.2 H Eos # (Auto) 0.3 Baso # (Auto) 0.1 Abs Immat Gran (auto) 0.03 Seg Neuts % (Manual) Lymphocytes % (Manual) Monocytes % (Manual) Eosinophils % (Manual) Basophils % (Manual) Imm/Tot Granulo (auto) 0.3 Neutrophils # (Manual) Lymphocytes # (Manual) Monocytes # (Manual) Eosinophils # (Manual) Basophils # (Manual) VBG pH VBG pCO2 Sodium 138 Potassium 5.5 H Chloride 99 Carbon Dioxide 32.1 H Anion Gap 12.4 BUN 41.0 H Creatinine 2.12 H Est GFR ( Amer) 36 L Est GFR (Non-Af Amer) 30 L BUN/Creatinine Ratio 19.3 Glucose 141 H Calcium 9.0 Magnesium 2.2 Total Bilirubin 0.8 AST 27 ALT 21 Alkaline Phosphatase 69 Troponin I High Sens 47.3 NT-Pro-B Natriuret Pep 4285.0 H* Total Protein 7.2 Albumin 3.6 Globulin 3.6 Albumin/Globulin Ratio 1.0 Urine Color Urine Clarity Urine pH Ur Specific [place] Urine Protein Urine Glucose (UA) Urine Ketones Urine Occult Blood Urine Nitrite Urine Bilirubin Urine Urobilinogen Ur Leukocyte Esterase Urine RBC Urine WBC Ur Squamous Epith Cells Urine Crystals Urine Bacteria Urine Casts Urine Mucus Ur Culture Indicated? Digoxin Influenza Type A Ag Negative Influenza Type B Ag Negative SARS-CoV-2 Ag (CV2AG) Negative POC Glucose Discharge Plan Discharge Disposition: Home, Self-Care Discharge Medications: New furosemide [Lasix] 20 mg tablet 20 mg PO DAILY Qty: 30 11RF azithromycin [Zithromax Z-Kartik] 250 mg tablet See Rx Instructions .ROUTE .COMPLEX Qty: 6 0RF Rx Instructions: For 250 mg dose pack: take 500 mg today (day 1), then 250 mg for 4 days (days 2-5) Continued losartan 50 mg tablet 50 mg PO QDAY atorvastatin 40 mg tablet 40 mg PO .qhs tramadol 50 mg tablet 50 mg PO Q12H PRN (Reason: pain) levothyroxine 25 mcg tablet 25 mcg PO QAM triamcinolone acetonide 0.025 % cream 1 applic TOPICAL QDAY PRN (Reason: rash) tamsulosin 0.4 mg capsule 0.4 mg PO Q24H digoxin 125 mcg (0.125 mg) tablet 0.125 mg PO QDAY metoprolol succinate 25 mg tablet extended release 24 hr 25 mg PO QDAY fluoxetine 20 mg capsule 20 mg PO QAM insulin asp prt-insulin aspart [Novolog Mix 70-30FlexPen U-100] 100 unit/mL (70-30) insulin pen 38 unit SUBCUT TIDWMEAL tizanidine 2 mg capsule 2 mg PO .qhs PRN (Reason: muscle spasticity) Xarelto 15 mg tablet 15 mg PO BID dapagliflozin propanediol [Farxiga] 10 mg tablet 10 mg PO QAM Rx Instructions: with breakfast Discontinued Xarelto 20 mg tablet 20 mg PO DAILY furosemide 40 mg tablet 40 mg PO QDAY Activity: resume usual activities as tolerated Diet: advance to your usual diet Print Language: Estonian Patient Instructions: Furosemide (By mouth), Azithromycin (By mouth), Hyperkalemia (DC), Acute Delirium (DC) Forms: Portal Instructions Follow Up Appointments: Call Chepe Michael tomorrow to make a follow up within the week #
[2024-06-20] MEDS: FUROSEMIDE 20 MG TABLET PO (10:29)
--- NOTE | 2024-06-20 10:37 | PC.NURSE ---
Dr. Paniagua notified of improved trop level. states ok to NH home
[2024-06-20 12:00] LABS: Glucometer 134 mg/dL (74-106)
--- NOTE | 2024-06-21 09:04 | SWNOTE1 ---
SW was consulted for Advanced Directives, but pt was discharged over the weekend.
--- NOTE | 2024-06-21 13:14 | CM.DCFOLLOWU ---
Person spoke with: Alec How are you feeling? Good How is your pain? No pain Did you understand your discharge instructions? Yes Do you have any questions about your discharge instructions? No Were you given any prescriptions at discharge? Yes Were you able to get your prescriptions filled? Yes Do you understand how to take your medications as ordered? Yes Do you have any questions about your follow up appointment and do you plan to keep your follow up appointment? I will call and schedule today Is there anything else that you would like to discuss? No Questions/Comments/Concerns/Other:
== END 2024-06-20 12:20 | disposition home or self-care (01) ==
LOC: ER 17:59 → MS 19:47
PROVIDERS: Internal Medicine; Admitting Provider Family Medicine; Emergency Provider Emergency Medicine; PCP Nurse Practitioner Family; Visit Provider Family Medicine
DX: N17.9 Acute kidney failure, unspecified (principal); E87.5 Hyperkalemia; R41.0 Disorientation, unspecified; B34.9 Viral infection, unspecified; R06.03 Acute respiratory distress; R53.83 Other fatigue; E11.65 Type 2 diabetes mellitus with hyperglycemia; R79.89 Other specified abnormal findings of blood chemistry; I48.92 Unspecified atrial flutter; I21.4 Non-ST elevation (NSTEMI) myocardial infarction; Z79.01 Long term (current) use of anticoagulants; I50.42 Chronic combined systolic (congestive) and diastolic (congestive) heart failure; I11.0 Hypertensive heart disease with heart failure; N40.0 Benign prostatic hyperplasia without lower urinary tract symptoms; M54.50 Low back pain, unspecified; Z79.4 Long term (current) use of insulin; D72.829 Elevated white blood cell count, unspecified
CPT/HCPCS: 36415; 70450; 71045; 80048; 80053; 80162; 81001; 82800; 82948; 83735; 83880; 84484; 85007; 85025; 85027; 87804; 87811; 93005; 94667; 94761; 96361; 96374; 96375; 99284; G0378; J0612; J1817

== ENCOUNTER 2024-10-03 10:43 | Emergency (ER) | payer MEDICARE, SELFPAY ==
--- OUTSIDE RECORDS SUMMARY | 2024-09-27 13:00 | XMS_ITS | Encounter Summary ---
Author Organization [facility] Address [address] [place] [address] Care Team Providers Care Manager Unix Name Role Phone Yariel Patel DO Primary Care Provider Deanna Gabriel MD, PhD Unavailable [phone] Wilder Mackey MD Unavailable [phone] Source Comments In the event this information is protected by the Federal Confidentiality of Alcohol and Drug AbusePatient Records regulations: The Federal rules restrict any use of the information to criminally investigate or prosecute any alcohol or drug abuse patient.[facility] Reason for Visit * Reason Comments Follow Up Encounter Details Date Type Department Care Team (Latest Contact Info) Description 09/27/2024 1:00 PM EDT Office Visit Endocrinology [address] [place] [address] Paty Stoddard, JOSE.CURRICULUM DEVELOPMENT SPECIALIST [address] [facility] [address] Type 2 diabetes mellitus with stage 3b chronic kidney disease, with long-term current use of insulin (HCC) (Primary Dx); Essential hypertension; Dyslipidemia; Acquired hypothyroidism Social History Tobacco Use Types Packs/Day Years Used Date Smoking Tobacco: Never Passive Smoke Exposure: Past Smokeless Tobacco: Never Alcohol Use Standard Drinks/Week Comments No 0 (1 standard drink = 0.6 oz pur e alcohol) PHQ-2 Answer Date Recorded PHQ-2 score 2 04/19/2024 Area Deprivation Index Answer Date Sandro rded National Score (1-100), lower number is lower ri sk 76 08/09/2022 State Score (1-10), lower number is lower risk 6 08/09/2022 Data from: https://www.neighborhoodatlas.medicine.[facility]/. Last address used for calculation [address] 08/09/2022 Sex and Gender Information Value Date Recorded Sex Assigned at Not on file Legal Sex Male 9:30 AM EST Gender Identity Not on file Sexual Orientation Not on file documented as of this encounter Last Filed Vital Signs Vital Sign Reading Time Taken Comments Blood Pressure 121/57 09/27/2024 1:03 PM EDT Pulse 57 09/27/2024 1:03 PM EDT Temperature - - Respiratory Rate - - Oxygen Saturation 98% 09/27/2024 1:03 PM EDT Inhaled Oxygen Concentration - - Weight 81.6 kg (179 lb 14.3 oz) 09/27/2024 1:03 PM EDT Height - - Body Mass Index 27.36 07/08/2024 1:30 PM EDT documented in this encounter Functional Status * Are you deaf or do you have serious difficulty hearing? Answer Date of Assessment Author No 10/25/2014 2:28 PM EDT Karis Dai Ma Are you blind or do you have serious difficulty seeing, even when wearing glasses? Answer Date of Assessment Author No 10/25/2014 2:28 PM EDT Karis Dai Ma * Do you have serious difficulty walking or climbing stairs? Answer Date of Assessment Author No 10/25/2014 2:28 PM EDT Karis Dai Ma * Do you have difficulty dressing or bathing? Answer Date of Assessment Author No 10/25/2014 2:28 PM EDT Karis Dai Ma * Because of a physical, mental, or emotional condition, do you have difficulty doing errands alone such as visiting a doctor's office or shopping? Answer Date of Assessment Author No 10/25/2014 2:28 PM EDT Karis Dai Ma documented as of this encounter Mental Status * Because of a physical, mental, or emotional condition, do you have serious difficulty concentrating, remembering, or making decisions? Answer Entry Date Author No 10/25/2014 2:28 PM EDT Karis Dai Ma documented in this encounter Patient Instructions * Patient Instructions* Paty Stoddard APRN.CNP - 09/27/2024 1:27 PM EDT Plan Continue: Farxiga 10 mg daily Novolog 70/30 -- 38 units with breakfast, 38 units with lunch, and 38 units with dinner Check your blood sugar 3 times daily and record in log book to bring to all appointments. Bring your meter to all appointments as well. Glucose targets as: Fasting 90-130, before meals 100-130, and bedtime under 150 mg/dL. Notify office for consistently elevated or any low blood sugars <70 Follow up in 4 months documented in this encounter Progress Notes * Paty Stoddard APRN.CNP - 09/27/2024 1:21 PM EDT Endocrinology Follow-up History of Present Illness Alec Gunderson is a 88 year old male presents today for follow up of DM Type 2 and hypothyroidism. Here with today. She reports he has had some high blood sugars related to taking his evening insulin after dinner, but otherwise glucose has been stable. No lows. Is scheduled for labwork next week. HbA1c POC today is 7.7%. On LT4 25 mcg daily, takes appropriately. Date of Diagnosis: ~1999 Last HbA1c: Hemoglobin A1C (%) Date Value 05/12/2023 8.9 04/02/2021 8.4 08/22/2020 7.9 05/16/2020 8.4 10/06/2019 7.8 03/22/2019 8.1 Hemoglobin A1C (POCT) (%) Date Value 09/27/2024 7.7 07/08/2024 6.9 03/02/2024 7.6 11/14/2023 7.3 01/03/2023 8.9 Family history of diabetes: father and maternal grandmother Complications Microvascular: CKD III Macrovascular: denies History of prostate CA and non Hodgkin's lymphoma. 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 Diet: low CHO, portion control, some dietary indiscretion, mostly vegetarian 4 AM: Breakfast- cereal and sugar free hot cocoa 11-12 PM: Dinner 2 slices of jordanian cheese and ham, Glucerna 5-6 PM: Supper: biggest meal SMBG Frequency of Monitoring: Three times a Day BG Values: See HPI Hypoglycemia Frequency: none Current DM Related Medications: Current Medications 09/27/2024 DIABETES THERAPIES Medication Dosage Pharm Subclass FARXIGA 10 mg tablet TAKE 1 TABLET BY MOUTH DAILY WITH BREAKFAST Antihyperglycemic - Sodium GlucoseCotransporter-2 (SGLT2) Inhibitors NOVOLOG MIX 70-30 100 unit/mL (70-30) pen INJECT 38 UNITS WITH BREAKFAST, 38 WITH LUNCH, 38 UNITS WITH DINNER SUBCUTANEOUSLY Insulin Analogs - Fixed Combinations CARDIOVASCULAR Medication Dosage Pharm Subclass atorvastatin (LIPITOR) 40 mg tablet Take 40 mg by mouth daily at bedtime. Antihyperlipidemic - HMG CoA Reductase Inhibitors (statins) digoxin (LANOXIN) 125 mcg tablet Take 0.125 mg by mouth once daily. Digitalis Glycosides losartan (COZAAR) 50 mg tablet Take 50 mg by mouth once daily. Angiotensin II Receptor Blockers (ARBs) metoprolol succinate ER (TOPROL XL) 25 mg 24 hr tablet Take 25 mg by mouth once daily. Beta Blockers Cardiac Selective DIURETICS Medication Dosage Pharm Subclass furosemide (LASIX) 40 mg tablet Take 40 mg by mouth once daily. Diuretic - Loop ANTICOAGULANTS Medication Dosage Pharm Subclass heparin 100 unit/mL syrg NURSING USE ONLY: USE FOR IMPLANTED VASCULAR ACCESS DEVICE (IVAD) FLUSH.AMBULATORY/OUTPATIENT: PLEASE REORDER UPON HOSPITAL DISCHARGE May access implanted vascular access device (IVAD) as needed for treatment. Before de-accessing port, flush with 10-20ml normal saline and follow with 5 mL heparin (100 units/mL) (if no heparin allergy). De-access port on treatment completion. Heparins XARELTO 20 mg tablet Take 20 mg by mouth once daily. Direct Factor Xa Inhibitors OTHER Medication Dosage Pharm Subclass 0.9% NaCl NURSING USE ONLY: USED FOR IMPLANTED VASCULAR ACCESS DEVICE (IVAD) ACCESS. AMBULATORY/OUTPATIENT: PLEASE REORDER UPON HOSPITAL DISCHARGE May access implanted vascular access device (IVAD) as needed for treatment. Flush IVAD with 10-20 mL NS every 4 weeks and PRN when IVAD not in use. Pharmaceutical Adjuvant - Parenteral Vehicles blood sugar diagnostic (TRUE METRIX GLUCOSE TEST STRIP) test strip Check glucose 4 times daily Dx: E11.65 Medical Supplies and DME - Blood Glucose Tests Blood-Glucose Meter (TRUE METRIX GLUCOSE METER) Check glucose 3 times daily Dx: E11.65 Medical Supplies and DME - Glucose Monitoring Test Supplies hqhcbjc-toxnqufov-ltdfrpa D3 (OS-BESSY 500+D) 500 mg(1,250mg) -200 unit per tablet Minerals and Electrolytes - Calcium Replacement/Vitamin D Combinations Cholecalciferol, Vitamin D3, 50 mcg (2,000 unit) cap Take 2,000 mg by mouth once daily. Vitamins - D Derivatives citalopram hydrobromide (CELEXA) 10 mg tablet Take 10 mg by mouth once daily. Antidepressant - Selective Serotonin Reuptake Inhibitors (SSRIs) FLUoxetine (PROZAC) 20 mg capsule Take 20 mg by mouth once daily. Antidepressant - Selective Serotonin Reuptake Inhibitors (SSRIs) fluticasone (FLONASE) 50 mcg/actuation nasal spray 1 Leola as needed. Nasal Corticosteroids Insulin Jackson, Disposable, (UNIFINE PENTIPS PLUS) 32 gauge x 5/32 Use with insulin pens 3 times daily Dx: E11.65 Medical Supplies and DME - Insulin Jackson-Syringes and Admin Supplies Lactobac no.41-Bifidobact no.7 70 mg (3 billion cell) cap Probiotic 1 tab daily Intestinal Claudia Modifiers Lancets Check glucose 3 times daily Dx: E11.65 Medical Supplies and DME - Glucose Monitoring Test Supplies levothyroxine (SYNTHROID) 25 mcg tablet Take 1 tablet by mouth once daily. Thyroid Hormones - Synthetic T4 (Thyroxine) loratadine (CLARITIN) 10 mg tablet as needed. Antihistamines - 2nd Generation magnesium oxide (MAG-OX) 400 mg (241.3 mg magnesium) tablet Take 400 mg by mouth once daily. Antacid - Magnesium melatonin 1 mg tablet Hypnotics - Melatonin - Single Agents multivit-min/FA/lycopen/lutein (CENTRUM SILVER MEN ORAL) Centrum Silver Men 2 QD Multivitamin and Mineral Combinations MULTIVITAMIN ORAL Multivitamins Nut.Tx.Gluc.Intol,Lac-Free,Soy (GLUCERNA SNACK SHAKE) liqd Take 237 mL by mouth three times daily with meals. Nutritional Product - Nutritional Therapy omeprazole (PRILOSEC) 20 mg capsule omeprazole 20 mg capsule,delayed release Take 1 capsule every day by oral route. Gastric Acid Secretion Funeral Home Assistant - Proton Pump Inhibitors (PPIs) tamsulosin (FLOMAX) 0.4 mg Take 1 capsule by mouth once daily. Prostatic Hypertrophy Agent - osvsz-0-Xcazxlgqvfws Antagonists traMADol (ULTRAM) 50 mg tablet as needed. Analgesic Opioid Agonists triamcinolone acetonide (KENALOG) 0.1 % cream as needed. 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 PVD (posterior vitreous detachment) PAST SURGICAL HISTORY Procedure Laterality Date PACEMAKER 05/2017 PAST SURGICAL HISTORY OF 2008 radiation seeds implant into prostate PAST SURGICAL HISTORY OF super pubic tube VITRECTOMY MECHANICAL PARS PLANA PPV (Pars Plana Vitrectomy) OS ALLERGIES Allergen Reactions Penicillins Hives FAMILY HISTORY Problem Relation Age of Onset Diabetes Father No Ocular Disease Father Diabetes Maternal Grandmother Cancer Maternal Grandmother No Ocular Disease Mother Social History Tobacco Use Smoking status: Never Passive exposure: Past Smokeless tobacco: Never Vaping Use Vaping status: Never Used Substance Use Topics Alcohol use: No Drug use: No Review of Systems GENERAL: No weight loss, malaise or fevers RESPIRATORY: Negative for cough, hemoptysis, wheezing, COPD, dyspnea or shortness of breath CARDIOVASCULAR: Negative for chest pain, leg swelling, CHF or palpitations GI: No nausea, vomiting, or diarrhea ENDOCRINE: Negative for cold or heat intolerance, polyuria, polydipsia and goiter NEUROLOGIC:Negative for focal numbness or weakness, headaches and dizziness or syncope. Physical examination BP 121/57 Pulse (!) 57 Wt 81.6 kg (179 lb 14.3 oz) SpO2 98% BMI 27.36 kg/m?? General appearance: Well appearing, alert, in no acute distress, well-hydrated, well nourished. Skin: Skin color, texture, turgor normal, no suspicious rashes or lesions HEART: normal rate LUNGS: unlabored, normal respiratory rate EXTREMITIES No deformities, No skin discoloration and No edema NEURO: Speech normal, mental status intact, no tremor noted. Previous Laboratory Results LABS Glucose (mg/dL) Date Value 06/29/2024 161 04/20/2024 150 12/29/2023 99 04/02/2021 197 02/19/2021 168 08/22/2020 147 Potassium (mmol/L) Date Value 06/29/2024 4.7 04/02/2021 4.5 Sodium (mmol/L) Date Value 06/29/2024 138 04/20/2024 138 12/29/2023 134 04/02/2021 137 02/19/2021 140 08/22/2020 142 Chloride (mmol/L) Date Value 06/29/2024 101 04/20/2024 99 12/29/2023 100 04/02/2021 98 02/19/2021 100 08/22/2020 102 CO2 (mmol/L) Date Value 06/29/2024 27 04/20/2024 29 12/29/2023 30 04/02/2021 29 02/19/2021 29 08/22/2020 30 Creatinine (mg/dL) Date Value 06/29/2024 1.68 04/20/2024 1.55 12/29/2023 1.70 04/02/2021 1.39 02/19/2021 1.41 08/22/2020 1.31 BUN (mg/dL) Date Value 06/29/2024 36 04/20/2024 36 12/29/2023 39 04/02/2021 25 02/19/2021 32 08/22/2020 28 Anion Gap (mmol/L) Date Value 06/29/2024 10 04/20/2024 10 12/29/2023 4 04/02/2021 10 02/19/2021 11 08/22/2020 10 Calcium (mg/dL) Date Value 04/02/2021 9.5 02/19/2021 9.5 08/22/2020 9.7 Calcium, Total (mg/dL) Date Value 06/29/2024 9.5 04/20/2024 9.4 12/29/2023 9.6 eGFR- (no units) Date Value 04/02/2021 59 02/19/2021 58 08/22/2020 >60 eGFR-All Other Races (.) Date Value 04/02/2021 49 02/19/2021 48 08/22/2020 52 Estimated Glomerular Filtration Rate (mL/min/1.73m??) Date Value 06/29/2024 39 04/20/2024 43 12/29/2023 39 ALT (U/L) Date Value 06/29/2024 14 04/20/2024 17 12/29/2023 13 04/02/2021 27 02/19/2021 26 08/22/2020 33 TSH Date Value Ref Range Status 12/29/2023 2.600 0.270 - 4.200 mIU/L Final 05/12/2023 3.010 0.270 - 4.200 mIU/L Final 04/10/2022 2.420 0.270 - 4.200 mIU/L Final Free T4 Date Value Ref Range Status 04/02/2021 1.3 0.9 - 1.7 ng/dL Final 05/16/2020 1.2 0.9 - 1.7 ng/dL Final 12/10/2018 1.1 0.9 - 1.7 ng/dL Final Impression/Recommendations IMPRESSION Alec Gunderson is a 88 year old here for 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 RECOMMENDATIONS: 1. Glycemic control: Target HbA1C is less than 7.0% per ADA guidelines. Goal for him given age/comorbidities is <8%. This patient is at target, without hypoglycemia. Plan Continue: Farxiga 10 mg daily Novolog 70/30 -- 38 units with breakfast, 38 units with lunch, and 38 units with dinner Check your blood sugar 3 times daily and record in log book to bring to all appointments. Bring your meter to all appointments as well. Glucose targets as: Fasting 90-130, before meals 100-130, and bedtime under 150 mg/dL. Notify office for consistently elevated or any low blood sugars <70 Follow up in 4 months The patient was reminded to check their blood glucose as directed and to record the data in a logbook. This patient was advised to bring their logbook to each office visit. I recommended at least 150minutes per week of moderate physical activity, such as walking and to reduce carbohydrates and overall caloric intake. 2. Hypertension/BP control: BP goal for patients with diabetes is 130/80. -- This patient is at target on current regimen. 3. Lipids: Target LDL cholesterol in patients with diabetes is less than 100, less than 70 if patient has overt CVD. Several studies have shown cardiovascular benefits of statin therapy in all patients with diabetes over age 40 with at least 1 CVD risk factor. Cholesterol, Total Date Value Ref Range Status 05/12/2023 139 <200 mg/dL Final Comment: <200 mg/dL, Desirable 200-239 mg/dL, Borderline high >239 mg/dL, High HDL Cholesterol Date Value Ref Range Status 05/12/2023 30 (L) >39 mg/dL Final Comment: 40-59 mg/dL, Acceptable >59 mg/dL, High: Negative risk factor for coronary heart disease <40 mg/dL, Low: Positive risk factor for coronary heart disease LDL Cholesterol, Calculated Date Value Ref Range Status 05/12/2023 55 <100 mg/dL Final Comment: <100 mg/dL, Optimal 100-129 mg/dL, Near optimal/above optimal 130-159 mg/dL, Borderline high 160-189 mg/dL, High >189 mg/dL, Very high Secondary prevention optimal LDL Cholesterol levels are recommended to be < 70 mg/dL Triglyceride Date Value Ref Range Status 05/12/2023 272 (H) <150 mg/dL Final Comment: <150 mg/dL, Normal 150-199 mg/dL, Borderline high 200-499 mg/dL, High >499 mg/dL, Very high -- This patient is currently at target on statin therapy. -- Managed by cardiology (Dr. Jacinto Gardner). -- Repeat FLP order in place. 4. Nephropathy screening: Annual measurement of urine albumin excretion is recommended in patients with diabetes. Albumin/Creat Ratio (mg/g) Date Value 12/01/2023 190 (H) 04/02/2021 165 (H) Protein, Urine (no units) Date Value 01/11/2022 2+ (A) Creatinine, Ur Random (UCRR) (mg/dL) Date Value 12/01/2023 68.0 04/02/2021 85.3 -- This patient has albuminuria and is on BRIAN-I or ARB therapy. On SGLT2i as well. 5. Ophthalmology: Annual dilated eye exams are recommended for patients with type 1 and type 2 diabetes. -- This patient is not up to date with their annual eye exam and has no history of retinopathy. -- Last seen 08/2024 6. Hypothyroidism: -- Euthyroid. -- Continue LT4. Patient to continue to follow up with his PCP and with other consultants regarding his other medical problems. Any part of this document that has been added/copied & pasted from other documents has been reviewed for accuracy and updated as appropriate at the time of the patient encounter Paty Stoddard APRN.CURRICULUM DEVELOPMENT SPECIALIST documented in this encounter Plan of Treatment Upcoming Encounters Date Type Department Care Team (Late st Contact Info) Description 10/06/2024 2:00 PM EDT Office Visit [facility] [address] [place] [address] [place] [address] 3 month follow up with lab 10/06/2024 2:20 PM EDT Visit (SP) Office Hematology/Oncology [address] [place] [address] Esteban Martinez MD [address] [place] [address] 3 month follow up with lab 10/12/2024 2:00 PM EDT Office Visit [facility] [address] [place] [address] [place] [address] Lior Montanez MD [address] [place] [address] Diagnostics, [facility] [address] [address] [address] Montanez [facility]. 01/28/2025 10:30 AM EST Office Visit Endocrinology [address] [facility] [place] [address] Paty Stoddard APRN.CURRICULUM DEVELOPMENT SPECIALIST [address] [facility] [place] [address] 4 month follow up DM 09/22/2025 10:15 AM EDT Office Visit [facility] Ophthalmology [address] [place] [address] Callum Gutierrez MD [address] [place] [address] Diagnostics, [facility] [address] [address] *YEARLY, DFE/OCT documented as of this encounter Procedures Procedure Name Priority Date/Time Associated Diagnosis Comments HEMOGLOBIN A1C (POC) Routine 09/27/2024 1:11 PM EDT documented in this encounter Results * (ABNORMAL) HEMOGLOBIN A1C (POC) (09/27/2024 1:11 PM EDT) Hemoglobin A1C (POCT) 7.7(A) 4.3 - 5.6 % [facility] POINT OF CARE Comment: [id number] Location:[facility], [address], [place], [address] Point of care (POC) Hemoglobin A1c (HGBA1C) testing is intended to assess glucose control and provide a management tool for patients known to have diabetes and their healthcare providers. Target HGBA1C levels may depend on specific clinical circumstances. POC HGBA1C is not intended for use as a diagnostic or screening test; laboratory-based testing should be used for diagnostic purposes. The following information is supplemental and may not be applicable to specific diabetes management situations: The POC device supervisor fleshing provides a normal range of 4.2% to 6.5% for the HGBA1C POC test. However, the [place] [employer] guidelines indicate that patients with HGBA1C in the range of 5.7% to 6.4% are at increased risk for development of diabetes and that intervention by lifestyle modification may be beneficial. A HGBA1C level greater than or equal to 6.5% is considered diagnostic of diabetes, pending confirmatory testing. Use of HGBA1C testing to evaluate glucose control may not be appropriate for patients with hemoglobin variants or other conditions (e.g. anemia) that alter red blood cell lifespan. 09/27/2024 1:11 PM EDT Paty Stoddard APRN.CNP POC TESTING Final Result [facility] POINT OF CARE documented in this encounter Visit Diagnoses Diagnosis Type 2 diabetes mellitus with stage 3b chronic kidney disease, with long-term current use of insulin (HCC)- Primary Essential hypertension Unspecified essential hypertension Dyslipidemia Other and unspecified hyperlipidemia Acquired hypothyroidism Unspecified hypothyroidism documented in this encounter Care Teams Manager Unix Relationship Specialty Start Date End Date Yariel Patel DO [address] [address] PCP - General 07/04/00 Deanna Gabriel MD, PhD [address] [place] [address] Physician Endocrinology 02/09/18 Wilder Mackey MD [address] [place] [address] Primary Staff Physician Cardiology 06/09/18 documented as of this encounter
--- OUTSIDE RECORDS SUMMARY | 2024-09-28 13:20 | XMS_ITS | Encounter Summary ---
Author Organization [facility] Address [address] [place] [address] Phone Care Team Providers Care Iron Handler Name Role Phone Yariel Patel Primary Care Provider Reason for Referral * Consultation (Routine) - Authorized Specialty Diagnoses / Procedures Referred By Contac t Referred To Contact Cardiology Diagnoses Paroxysmal atrial fibrillation (Multi) Procedures Follow Up In Cardiology David Jackson MD [address] [place] [address], [address] [address] Phone: tel: fax: David Jackson MD [address] [place] [address], [address] [address] Phone: tel: fax: Referral ID Status Reason Start Date Expiration Date V isits Requested Visits Authorized [id number] Authorized 09/28/2024 09/28/2025 1 1 Reason for Visit * Reason Comments Follow-up 9 months Sick sinus syndrome (Multi) * Consultation (Routine) - Authorized Specialty Diagnoses / Procedures Referred By Contac t Referred To Contact Cardiology Diagnoses Sick sinus syndrome (Multi) Procedures Follow Up In Cardiology David Jackson MD [address] [place] [address] Phone: tel: fax: David Jackson MD 703 [facility] 2, [address] [address] Phone: tel: fax: Referral ID Status Reason Start Date Expiration Date V isits Requested Visits Authorized [id number] Authorized 12/24/2023 12/23/2024 1 1 Encounter Details Date Type Department Care Team (Latest Contact Info) Description 09/28/2024 1:20 PM EDT Office Visit [facility] [address] [address] David Jackson MD 703 [facility] 2, [address] [address] Sick sinus syndrome (Multi) (Primary Dx); Paroxysmal atrial fibrillation (Multi); Pacemaker; Mild coronary artery disease; LV dysfunction; Mixed hyperlipidemia; Essential hypertension; intermediate card tender current use of anticoagulant therapy; Stage 3a chronic kidney disease (Multi); BMI 26.0-26.9,adult; Never smoked tobacco; Hyperthyroidism Social History Tobacco Use Types Packs/Day Years Used Date Smoking Tobacco: Never Smokeless Tobacco: Never Tobacco Cessation:Counseling Given: Yes Alcohol Use Standard Drinks/Week Comments Never 0 (1 standard drink = 0.6 oz pur e alcohol) Sex and Gender Information Value Date Recorded Sex Assigned at Not on file Legal Sex Male 8:39 PM EST Gender Identity Not on file Sexual Orientation Not on file documented as of this encounter Last Filed Vital Signs Vital Sign Reading Time Taken Comments Blood Pressure 110/60 09/28/2024 1:19 PM EDT Pulse 56 09/28/2024 1:19 PM EDT Temperature - - Respiratory Rate - - Oxygen Saturation - - Inhaled Oxygen Concentration - - Weight 79.8 kg (176 lb) 09/28/2024 1:19 PM EDT Height 172.7 cm (5' 8 ) 09/28/2024 1:19 PM EDT Body Mass Index 26.76 09/28/2024 1:19 PM EDT documented in this encounter Patient Instructions * Patient Instructions* Jennifer Nieves LPN - 09/28/2024 1:20 PM EDT Please bring all medicines, vitamins, and herbal supplements with you when you come to the office. Prescriptions will not be filled unless you are compliant with your follow up appointments or have a follow up appointment scheduled as per instruction of your physician. Refills should be requested at the time of your visit. Pacemaker/Defibrillator follow up per routine BMI was above normal measurement. Current weight: 79.8 kg (176 lb) Weight change since last visit (-) denotes wt loss 0 lbs Weight loss needed to achieve BMI 25: 11.9 Lbs Weight loss needed to achieve BMI 30: -20.9 Lbs Provided instructions on dietary changes. * Attachments The following attachments cannot be sent through Care Everywhere. * Heart Healthy Diet (Irish) documented in this encounter Progress Notes * David Jackson MD - 09/28/2024 1:20 PM EDT Chief Complaint Patient presents with Follow-up 9 months Sick sinus syndrome (Multi) Subjective Alec Gunderson is a 88 y.o. male HPI Patient is here for follow-up due to management for history of sick sinus syndrome with permanent pacemaker implantation, paroxysmal atrial fibrillation on long-term anticoagulation. Since last time I saw him he denies any change in cardiac status or symptoms. Scruff symptoms of fatigue and tiredness but denies any other complaint. His recent lab work noted his creatinine around 1.7. His recent device check showed long episode of atrial fibrillation but completely asymptomatic. Assessment 1. Sick sinus syndrome with permanent pacemaker implantation. Recent device check noted and reviewed with him he still have about a year of battery life 2. Paroxysmal atrial fibrillation noted mainly on device check completely asymptomatic last episodelasted almost 12 days 3. Long-term anticoagulation due to A-fib. His creatinine is 1.6. He was on Xarelto with appropriate dose based on renal function 4. History of mild nonischemic cardiomyopathy improved medical therapy last ejection fraction around 50-55% 5. Mild atherosclerotic coronary artery disease noted on heart cath back in 2021 6. Hyperlipidemia on treatment with atorvastatin recent lab noted and reviewed with him 3. Stage III chronic coronary artery disease creatinine around 1.7 Plan 1. I reviewed with the patient result of his recent device check and lab work 2. I suggested to discontinue digoxin and increase his metoprolol ER to 50 mg daily 3. Risk, benefits alternative anticoagulation reviewed with him 4. I will see him back in the office in 6 months and follow-up Review of Systems All other systems reviewed and are negative. Vitals: 09/28/24 1319 BP: 110/60 BP Location: Right arm Patient Position: Sitting Pulse: 56 Weight: 79.8 kg (176 lb) Height: 1.727 m (5' 8 ) Objective Physical Exam Constitutional: Appearance: Normal appearance. HENT: Nose: Nose normal. Neck: Vascular: No carotid bruit. Cardiovascular: Rate and Rhythm: Bradycardia present. Pulses: Normal pulses. Heart sounds: Normal heart sounds. Pulmonary: Effort: Pulmonary effort is normal. Abdominal: General: Bowel sounds are normal. Palpations: Abdomen is soft. Musculoskeletal: General: Normal range of motion. Cervical back: Normal range of motion. Right lower leg: No edema. Left lower leg: No edema. Skin: General: Skin is warm and dry. Neurological: General: No focal deficit present. Mental Status: He is alert. Psychiatric: Mood and Affect: Mood normal. Behavior: Behavior normal. Thought Content: Thought content normal. Judgment: Judgment normal. Allergies Penicillins Current Medications Current Outpatient Medications Medication Instructions atorvastatin (LIPITOR) 40 mg, oral, Nightly dapagliflozin propanediol (FARXIGA) 10 mg, Daily furosemide (LASIX) 20 mg, Daily leuprolide (3-month) (LUPRON DEPOT) 22.5 mg, Every 3 months levothyroxine (SYNTHROID, LEVOXYL) 25 mcg, oral, Daily before breakfast losartan (COZAAR) 50 mg, oral, Daily metoprolol succinate XL (TOPROL-XL) 50 mg, oral, Daily NovoLOG Mix 70-30FlexPen U-100 100 unit/mL (70-30) injection 3 times daily ofloxacin (Ocuflox) 0.3 % ophthalmic solution Administer into affected eye(s). rivaroxaban (XARELTO) 15 mg, oral, 2 times daily (morning and late afternoon), Take with food. tamsulosin (FLOMAX) 0.4 mg, Daily Assessment/Plan 1. Sick sinus syndrome (Multi) Follow Up In Cardiology 2. Paroxysmal atrial fibrillation (Multi) Follow Up In Cardiology 3. Pacemaker 4. Mild coronary artery disease 5. LV dysfunction 6. Mixed hyperlipidemia 7. Essential hypertension metoprolol succinate XL (Toprol-XL) 50 mg 24 hr tablet losartan (Cozaar) 50 mg tablet 8. alf current use of anticoagulant therapy 9. Stage 3a chronic kidney disease (Multi) 10. BMI 26.0-26.9,adult 11. Never smoked tobacco 12. Hyperthyroidism levothyroxine (Synthroid, Levoxyl) 25 mcg tablet Scribe Attestation By signing my name below, IJennifer LPN , Scribe attest that this documentation has been prepared under the direction and in the presence of MD Vincent. Provider Attestation - Scribe documentation All medical record entries made by the Scribe were at my direction and personally dictated by me. Ihave reviewed the chart and agree that the record accurately reflects my personal performance of the history, physical exam, discussion and plan. documented in this encounter Plan of Treatment Upcoming Encounters Date Type Department Care Team (Late st Contact Info) Description 05/12/2025 1:40 PM EST Office Visit [facility] [address] [address] David Jackson MD 703 [facility] 2, [address] [address] documented as of this encounter Visit Diagnoses Diagnosis Sick sinus syndrome (Multi)- Primary Sinoatrial node dysfunction Paroxysmal atrial fibrillation (Multi) Atrial fibrillation Pacemaker Cardiac pacemaker in situ Mild coronary artery disease LV dysfunction Left heart failure Mixed hyperlipidemia Essential hypertension Unspecified essential hypertension alf current use of anticoagulant therapy Stage 3a chronic kidney disease (Multi) BMI 26.0-26.9,adult Never smoked tobacco Hyperthyroidism Thyrotoxicosis without mention of goiter or other cause, without mention of thyrotoxic crisis or storm documented in this encounter Additional Health Concerns Assessment Noted Time A fall risk assessment has been complete d for the patient 09/28/2024 1:19 PM EDT documented as of this encounter Care Teams Iron Handler Relationship Specialty Start Date End Date JanieYariel limDO jose manuel [address], [facility] [place] [address] PCP - General Family Medicine 09/14/24 documented as of this encounter
[2024-10-03 10:57] VITALS: BP 148/65; PULSE 58; TEMP 36.7; O2SAT 94; BMI 25.8
--- OUTSIDE RECORDS SUMMARY | 2024-10-03 11:02 | XMS_ITS | Encounter Summary ---
Author Organization [facility] Address [address] [place] [address] Care Team Providers Care Flight Operations Manager Name Role Phone Yariel Patel MD Primary Care Provider [phone] Encounter Details Date Type Department Care Team ([facility] Contact Info) Description 09/27/2022 Abstract [facility] [address] [facility] [address] [place] [phone] Piyush Heard, SARAH [address] [place] [address] Social History Tobacco Use Types Packs/Day Years Used Date Smoking Tobacco: Never Smokeless Tobacco: Never Alcohol Use Standard Drinks/Week Comments Yes 0 (1 standard drink = 0.6 oz pur e alcohol) Sex and Gender Information Value Date Recorded Sex Assigned at Not on file Legal Sex Male 6:38 PM EDT Gender Identity Not on file Sexual Orientation Not on file documented as of this encounter Plan of Treatment Upcoming Encounters Date Type Department Care Team (Late Contact Info) Description 01/12/2025 9:40 AM EDT Office Visit [facility] [address] [facility] [address] [place] [phone] Latoya Dhillon MD 112 [facility] 130 [place], [place] [phone] documented as of this encounter Visit Diagnoses Not on filedocumented in this encounter Care Teams Flight Operations Manager Relationship Specialty Start Date End Date Yariel Patel MD [address], [facility] [address] PCP - General Family Medicine 07/08/24 documented as of this encounter
--- OUTSIDE RECORDS SUMMARY | 2024-10-03 11:02 | XMS_ITS | Encounter Summary ---
Author Organization [facility] Address [address] [place] [address] Phone Care Team Providers Care Hand Trucker Name Role Phone Yariel Patel DO Primary Care Provider Yariel Patel DO Primary Care Provider Encounter Details Date Type Department Care Team (Late st Contact Info) Description 03/20/2022 Orders Only [facility] [address] [place] [address] Conversion, Onbase Social History Tobacco Use Types Packs/Day Years Used Date Smoking Tobacco: Never Assessed Sex and Gender Information Value Date Recorded Sex Assigned at Not on file Legal Sex Male 8:39 PM EST Gender Identity Not on file Sexual Orientation Not on file documented as of this encounter Plan of Treatment Upcoming Encounters Date Type Department Care Team (Late st Contact Info) Description 05/12/2025 1:40 PM EST Office Visit [facility] 703 [facility] 250 [place] [address] David Jackson MD 703 [facility] 2, [address] [place] [address] Scheduled Orders Name Type Priority Associated Diagnoses Orde r Schedule OUTSIDE LAB SCAN Lab Ordered: 03/20/2022 documented as of this encounter Visit Diagnoses Not on filedocumented in this encounter Care Teams Hand Trucker Relationship Specialty Start Date End Date Yariel Patel DO PCP - General 06/20/10 09/13/24 Yariel Patel DO [address], [facility] [place] [address] PCP - General Family Medicine 09/14/24 documented as of this encounter
--- OUTSIDE RECORDS SUMMARY | 2024-10-03 11:02 | XMS_ITS | Encounter Summary ---
Author Organization [facility] Address [address] [facility] [place] [address] Care Team Providers Care Cupboard Builder Name Role Phone Yariel Patel MD Primary Care Provider [phone] Encounter Details Date Type Department Care Team (Late Contact Info) Description 09/30/2018 Abstract [facility] [address] [place] [phone] [facility] [address] [place] [address] Social History Tobacco Use Types Packs/Day Years [...] Visit [facility] [address] [facility] 130 [place] [address] Latoya Dhillon MD 112 [facility] 130 [place] [address] documented as of this encounter Visit Diagnoses Not on filedocumented in this encounter Care Teams Cupboard Builder Relationship Specialty Start Date End Date Yariel Patel MD [address] [facility], [place] [address] PCP - General Family Medicine 07/08/24 documented as of this encounter
--- OUTSIDE RECORDS SUMMARY | 2024-10-03 11:02 | XMS_ITS | Encounter Summary ---
Author Organization [facility] Address [address] [place] [address] Care Team Providers Care Applications Manager Name Role Phone Yariel Patel MD Primary Care Provider [phone] Encounter Details Date Type Department Care Team (Late Contact Info) Description 11/28/2023 External Result Encounter [facility] External Department Unsolicited Dori Pittman DPM [address] [place] [address] Social History Tobacco Use Types Packs/Day Years Used Date Smoking Tobacco: Never Smokeless Tobacco: Never Alcohol Use Standard Drinks/Week Comments Yes 0 (1 standard drink = 0.6 oz pure alcohol) caffeine intake: 1-2 cups per day Sex and Gender Information Value Date Recorded Sex Assigned at Not on file Legal Sex Male 6:38 PM EDT Gender Identity Not on file Sexual Orientation Not on file documented as of this encounter Plan of Treatment Upcoming Encounters Date Type Department Care Team (Late st Contact Info) Description 01/12/2025 9:40 AM EDT Office Visit [facility] 112 [facility] 130 [place] [address] Latoya Dhillon MD 112 [facility] 130 [place] [address] documented as of this encounter Procedures Procedure Name Priority Date/Time Associated Diagnosis Comments VASC US PVR/SEGMENTAL PRESSURES LOWER 11/28/2023 11:38 AM EDT documented in this encounter Results * VASC US PVR/SEGMENTAL PRESSURES LOWER (11/28/2023 11:38 AM EDT) Anatomical Region Laterality Modality Right Ultrasound 11/28/2023 11:3 8 AM EDT Impressions 11/28/2023 11:41 AM EDT NO HEMODYNAMICALLY SIGNIFICANT PERIPHERAL VASCULAR OCCLUSIVE DISEASE AT REST IN EITHER LOWER EXTREMITY. Impression dictated by: Piyush Newsome MD11/28/2023 11:38 AM Dictation Location: [place] [address] Tech: Mei Becerra Transcribed By: SAHARA 11/28/23 1138 Dictated By: Piyush Newsome MD 11/28/23 1138 Signed By: <Electronically signed by Piyush Newsome MD in OV> 11/28/23 1138 Narrative 11/28/2023 11:41 AM EDT [facility] [place] [address] Ultrasound Report Signed Patient: Alec Gunderson MR#: [id number] : 1935 Acct:[id number] Age/Sex: 88 / M ADM Date: 11/28/23 Loc: Room: Type: [facility] Attending Dr: Dori Pittman DPM Ordering Provider: oDri Pittman DPM Date of Service: 11/28/23 US/US arterial pvr rest LE: I73.9 Copies to: Dori Pittman DPM LOWER EXTREMITY SEGMENTAL ARTERIAL DOPSCAN (PVR) INDICATION: Leg pain. PROCEDURE: Right arm blood pressure is 132 , left is 130 . Pressures throughout the right leg are 203 at the high thigh, at the 191 low thigh, 143 at the calf, 174 at the ankle using the posterior tibial artery, and 149 at the ankle using the dorsalis pedis artery with ankle- brachial index of 1.32 1.13 . Pressures throughout the left leg are 165 at the high thigh, at the 177 low thigh, 134 at the calf and 132 at the ankle using the posterior tibial artery, and 155 at the ankle using the dorsalis pedis artery with ankle-brachial index of 1.00 1.17 . Wave forms by plethysmography are normal. US/US arterial pvr rest LE Procedure Note Piyush Newsome MD - 11/28/2023 [facility] Main Reading [address] [place] [address] Ultrasound Report Signed Patient: Alec Gunderson WMR#: [id number] : 7Acct:[id number] Age/Sex: 88 / MADM Date: 11/28/23 Loc: Room:Type: [facility] Attending Dr: Dori Pittman DPM Ordering Provider: Dori Pittman DPM Date of Service: 11/28/23 US/US arterial pvr rest LE: I73.9 Copies to: Dori Pittman DPM LOWER EXTREMITY SEGMENTAL ARTERIAL DOPSCAN (PVR) INDICATION: Leg pain. PROCEDURE: Right arm blood pressure is 132 , left is 130 . Pressuresthroughout the right leg are 203 at the high thigh, at the 191 low thigh, 143 at the calf,174 at the ankle using the posterior tibial artery, and 149 at the ankle using the dorsalispedis artery with ankle- brachial index of 1.32 1.13 . Pressures throughout the left leg are 165 at the high thigh, at the 177low thigh, 134 at the calf and 132 at the ankle using the posterior tibial artery, and 155 atthe ankle using the dorsalis pedis artery with ankle-brachial index of 1.00 1.17 . Wave forms by plethysmography are normal. US/US arterial pvr rest LE IMPRESSION: NO HEMODYNAMICALLY SIGNIFICANT PERIPHERAL VASCULAR OCCLUSIVE DISEASE ATREST IN EITHER LOWER EXTREMITY. Impression dictated by: Piyush Newsome MD11/28/2023 11:38 AM [facility] Tech: Mei Becerra Transcribed By: [facility] 11/28/23 1138 Dictated By: Piyush Newsome MD 11/28/23 1138 Signed By: <Electronically signed by Piyush Newsome MD inOV> 11/28/23 1138 us Dori Pittman DPM IMG US PROCEDURES Final Re sult documented in this encounter Visit Diagnoses Not on filedocumented in this encounter Care Teams Applications Manager Relationship Specialty Start Date End Date Yariel Patel MD [address], [place] [address] PCP - General Family Medicine 07/08/24 documented as of this encounter
--- OUTSIDE RECORDS SUMMARY | 2024-10-03 11:02 | XMS_ITS | Encounter Summary ---
Author Organization [facility] Address [address] [place] [address] Phone Care Team Providers Care Occasional Caregiver Name Role Phone Yariel Patel DO Primary Care Provider Yariel Patel DO Primary Care Provider Encounter Details Date Type Department Care Team (Late st Contact Info) Description 03/26/2022 Orders Only [facility] [address] [place] [address] Conversion, Onbase Social History Tobacco Use Types [...] Description 05/12/2025 1:40 PM EST Office Visit [facility] 703 [facility] 250 [place] [address] David Jackson MD 703 [facility] 2, [address] [place] [address] Scheduled Orders Name Type Priority Associated Diagnoses Orde r Schedule OUTSIDE LAB SCAN Lab Ordered: 03/26/2022 documented as of this encounter Visit Diagnoses Not on filedocumented in this encounter Care Teams Occasional Caregiver Relationship Specialty Start Date End Date Yariel Patel DO PCP - General 06/20/10 09/13/24 Yariel Patel DO [address], [facility] [place] [address] PCP - General Family Medicine 09/14/24 documented as of this encounter
--- OUTSIDE RECORDS SUMMARY | 2024-10-03 11:02 | XMS_ITS | Encounter Summary ---
Author Organization [employer] [facility] tem Address [id number] [address] [place] [address] Care Team Providers Care Manager Business Planning Name Role Phone Yariel Patel DO Primary Care Provider + [phone] Encounter Details Date Type Department Care Team (Late Contact Info) Description 08/21/2022 Orders Only [facility] - Family Medicine [address] [place] [address] Britney Ricks CMA Tendonitis of shoulder, right Social History Tobacco Use Types Packs/Day Years Used Date Smoking Tobacco: Never Smokeless Tobacco: Never Alcohol Use Standard Drinks/Week Comments Never 0 (1 standard drink = 0.6 oz pur e alcohol) PHQ-2 Answer Date Recorded Total Score 0 08/20/2022 Sex and Gender Information Value Date Recorded Sex Assigned at Not on file Legal Sex Male 12:00 PM EST Gender Identity Not on file Sexual Orientation Not on file documented as of this encounter Progress Notes * Mei Hill - 08/21/2022 4:11 PM EDT Spoke with patient and voiced understanding documented in this encounter Plan of Treatment Upcoming Encounters Date Type Department Care Team (Late st Contact Info) Description 10/19/2024 1:00 PM EDT Office Visit [facility] - Family Medicine [address] [place] [address] documented as of this encounter Procedures Procedure Name Priority Date/Time Associated Diagnosis Comments XR SHOULDER RT MIN 2 VWS Routine 08/21/2022 4:12 PM EDT Tendonitis of shoulder, right documented in this encounter Results * X-ray shoulder right minimum 2 views (08/21/2022 4:12 PM EDT) Anatomical Region Laterality Modality MSK, Upper Extremities, Shoulder Right Computed Radiography Angle Michael ENTRY LEVEL ELECTRICAL ENGINEER-CORPORATE FITNESS PROGRAM COORDINATOR IMG DIAGNOSTIC IMAGING ORDE GIL Final Result documented in this encounter Visit Diagnoses Diagnosis Tendonitis of shoulder, right documented in this encounter Additional Health Concerns Assessment Noted Time PHQ-9 Depression Total Score: 0 08/21/19 10:54 AM EDT documented as of this encounter Care Teams Manager Business Planning Relationship Specialty Start Date End Date Yariel Patel DO [address] [facility] [place] [address] PCP - General Family Medicine 03/11/22 Sabrina Haq LPN [facility] 11/18/23 documented as of this encounter
--- OUTSIDE RECORDS SUMMARY | 2024-10-03 11:02 | XMS_ITS | Encounter Summary ---
Author Organization [employer] Address [id number] [address] [place] [address] Care Team Providers Care Welfare Interviewer Name Role Phone Yariel Patel Primary Care Provider + [phone] Encounter Details Date Type Department Care Team (Late st Contact Info) Description 09/10/2023 Orders Only [facility] Internal Medicine - Family Medicine [address] [place] [address] External, Scanning Provider Social History Tobacco Use Types Packs/Day Years Used Date Smoking Tobacco: Never Smokeless Tobacco: Never Alcohol Use Standard Drinks/Week Comments Never 0 (1 standard drink = 0.6 oz pur e alcohol) Social Connection and Isolat ion Panel [NHANES] Answer Date Recorded In a typical week, how many times do you talk on the phone with family, friends, or neighbors? Once a week 08/29/2022 How often do you get togethe r with friends or relatives? Never 08/29/2022 How often do you attend [facility] or zoroastrian services? More than 4 times per year 08/29/2022 Do you belong to any clubs o r organizations such as buddhist groups, unions, fraternal or athletic groups, or school groups? No 08/29/2022 How often do you attend meet ings of the clubs or organizations you belong to? Never 08/29/2022 Are you , , di vorced, , never , or living with a partner? 08/29/2022 AUDIT-C Answer Date Recorded Q1: How often do you have a drink containing alcohol? Never 08/29/2022 Q2: How many drinks containi ng alcohol do you have on a typical day when you are drinking? Patient does not drink Q3: How often do you have si x or more drinks on one occasion? Never 08/29/2022 Overall Financial Resource Strain (CARDIA) Answe r Date Recorded How hard is it for you to pa y for the very basics like food, housing, medical care, and heating? Not very hard 08/29/2022 PHQ-2 Answer Date Recorded Total Score 0 08/14/2023 [facility] - Occupational Stress Questionnaire Answer Date Recorded Do you feel stress - tense, restless, nervous, or anxious, or unable to sleep at night because your mind is troubled all the time - these days? Not at all 08/29/2022 Exercise Vital Sign Answer Date Recorde d On average, how many days pe r week do you engage in moderate to strenuous exercise (like a brisk walk)? 0 days 08/29/2022 On average, how many minutes do you engage in exercise at this level? 0 min 08/29/2022 PRAPARE - Transportation Answer Date Re corded In the past 12 months, has l ack of transportation kept you from medical appointments or from getting medications? No 10/2022 In the past 12 months, has l ack of transportation kept you from meetings, work, or from getting things needed for daily living? No 08/29/2022 Housing Instability Answer Date Recorde d Are you worried or concerned that in the next two months you may not have stable housing that you own, rent or stay in as a part of a household? No 08/29/2022 Childcare Answer Date Recorded Do problems getting child ca re make it difficult for you to work or study? No 08/29/2022 Employment Answer Date Recorded Do you need help finding a [facility] [facility] career center and/or a training program? No 08/29/2022 Hunger Screening Answer Date Recorded Within the past 12 months we worried whether our food would run out before we got money to buy more. Never True 08/14/2023 Within the past 12 months th e food we bought just didn't last and we didn't have money to get more. Never True 08/14/2023 Purpose - Life Answer Date Recorded I have a purpose and direction in my life. Stron gly Agree 08/29/2022 Sex and Gender Information Value Date Recorded [...] Internal Medicine - Family Medicine [address] [place] [address] documented as of this encounter Procedures Procedure Name Priority Date/Time Associated Diagnosis Comments MULTIPLE LABS Routine 09/08/2023 2:35 PM EDT documented in this encounter Results * Multiple labs (09/08/2023 2:35 PM EDT) us Scanning Provider External CA IMAGING Final Result MANUALLY TRANSCRIBED RESULTS documented in this encounter Visit Diagnoses Not on filedocumented in this encounter Additional Health Concerns Assessment Noted Time PHQ-9 Depression Total Score: 0 08/14/19 24 3:38 PM EDT documented as of this encounter Care Teams Welfare Interviewer Relationship Specialty Start Date End Date Yariel Patel DO [address] [place] [address] PCP - General Family Medicine 03/11/22 Sabrina Haq LPN [facility] Nurse - [facility] 11/18/23 documented as of this encounter
--- OUTSIDE RECORDS SUMMARY | 2024-10-03 11:02 | XMS_ITS | Encounter Summary ---
Author Organization [facility] Address [address] [place] [address] Care Team Providers Care Wire Fence Builder Name Role Phone Yariel Patel DO Primary Care Provider Deanna Gabriel MD, PhD Unavailable [phone] Wilder Mackey MD Unavailable [phone] Source Comments In the event this information is protected by the Federal Confidentiality of Alcohol and Drug AbusePatient Records regulations: The Federal rules restrict any use of the information to criminally investigate or prosecute any alcohol or drug abuse patient.[facility] Encounter Details Date Type Department Care Team (Late st Contact Info) Description 01/20/2024 Patient Msg Cardiology [address] [facility] [place] [address] Provider, Ccf Reschedule Social History Tobacco Use Types Packs/Day Years Used Date Smoking Tobacco: Never Passive Smoke Exposure: Past Smokeless Tobacco: Never Alcohol Use Standard Drinks/Week Comments No 0 (1 standard drink = 0.6 oz pur e alcohol) PHQ-2 Answer Date Recorded PHQ-2 score 0 12/29/2023 Area Deprivation Index Answer Date Sandro rded National Score (1-100), lower number is lower ri sk 76 08/09/2022 State Score (1-10), lower number is lower risk 6 08/09/2022 Data from: https://www.neighborhoodatlas.medicine.[facility]/. Last address used for calculation [address] 08/09/2022 Sex and Gender Information Value Date Recorded Sex Assigned at Not on file Legal Sex Male 9:30 AM EST Gender Identity Not on file Sexual Orientation Not on file documented as of this encounter Functional Status * Are you deaf or do you have serious difficulty hearing? Answer Date of Assessment Author No 10/25/2014 2:28 PM EDT Karis Dai Ma * Are you blind or do you have [...] Karis Dai Ma documented in this encounter Plan of Treatment Upcoming Encounters Date Type Department Care Team (Late st Contact Info) Description 10/06/2024 2:00 PM EDT Office Visit [facility] [address] [place] [address] [place] [address] 3 month follow up with lab 10/06/2024 2:20 PM EDT Visit (SP) Office Hematology/Oncology [address] [place] [address] Esteban Martinez MD [address] [place] [address] [place] [address] 3 month follow up with lab 10/12/2024 2:00 PM EDT Office Visit [facility] [address] [place] [address] [place] [address] [place] [address] [place] [address] Diagnostics, Eye Tech And [address] [address] [address] [facility]. 01/28/2025 10:30 AM EST Office Visit Endocrinology [address] [place] [address] Paty Stoddard, POULTRY GRADER.ELECTRONICS INSTALLER [address] [facility] [place] [address] 4 month follow up DM 09/22/2025 10:15 AM EDT Office Visit [facility] Ophthalmology [address] [place] [address] Callum Gutierrez MD [address] [place] [address] Diagnostics, Eye Tech And [address] [address] *YEARLY, DFE/OCT documented as of this encounter Visit Diagnoses Not on filedocumented in this encounter Care Teams Wire Fence Builder Relationship Specialty Start Date End Date Yariel Patel DO [address] [place] [address] PCP - General 07/04/00 Deanna Gabriel MD, PhD [address] [place] [address] Physician Endocrinology 02/09/18 Wilder Mackey MD [address] [place] [address] Primary Staff Physician Cardiology 06/09/18 documented as of this encounter
--- OUTSIDE RECORDS SUMMARY | 2024-10-03 11:02 | XMS_ITS | Encounter Summary ---
Author Organization [facility] Address [address] [facility] [place] [address] Care Team Providers Care Distribution Center Associate Name Role Phone Yariel Patel MD Primary Care Provider [phone] Encounter Details Date Type Department Care Team (Late Contact Info) Description 05/15/2016 Abstract [facility] [address] [place] [address] Shazia Bauman, [facility] [address] [place] [address] Social History Tobacco Use Types Packs/Day Years [...] Visit [facility] [address] [facility] [address] [place] [address] Latoya Dhillon MD [address] [facility] 130 [place] [address] documented as of this encounter Visit Diagnoses Not on filedocumented in this encounter Care Teams Distribution Center Associate Relationship Specialty Start Date End Date Yariel Patel MD [address] [facility] [place] [address] PCP - General Family Medicine 07/08/24 documented as of this encounter
--- OUTSIDE RECORDS SUMMARY | 2024-10-03 11:02 | XMS_ITS | Encounter Summary ---
Author Organization [facility] Address [address] [place] [address] Care Team Providers Care Online Education Manager Name Role Phone Yariel Patel MD Primary Care Provider [phone] Encounter Details Date Type Department Care Team (Late Contact Info) Description 10/23/2018 Abstract [facility] [address] [place] [phone] Shazia Bauman, [facility]-A [address] [place] [address] Social History Tobacco Use Types Packs/Day Years [...] Visit [facility] [address] [facility] 130 [place] [address] Latoya Dhillon MD [address] [facility] 130 [place] [address] documented as of this encounter Visit Diagnoses Not on filedocumented in this encounter Care Teams Online Education Manager Relationship Specialty Start Date End Date Yariel Patel MD [address] [facility], [place] [address] PCP - General Family Medicine 07/08/24 documented as of this encounter
--- OUTSIDE RECORDS SUMMARY | 2024-10-03 11:02 | XMS_ITS | Encounter Summary ---
Author Organization [facility] Address [address] [facility] [place] [address] Care Team Providers Care Registered Public Health Nurse Name Role Phone Yariel Patel MD Primary Care Provider [phone] Encounter Details Date Type Department Care Team (Late Contact Info) Description 12/07/2015 Abstract [facility] [address] [place] [phone] Shazia Bauman, [facility] [address] [place] [address] Social History Tobacco Use Types Packs/Day Years [...] Visit [facility] [address] [facility] 130 [place] [address] Latoya Dhillon MD 112 [facility] 130 [place] [address] documented as of this encounter Visit Diagnoses Not on filedocumented in this encounter Care Teams Registered Public Health Nurse Relationship Specialty Start Date End Date Yariel Patel MD [address] [facility], [place] [address] PCP - General Family Medicine 07/08/24 documented as of this encounter
--- OUTSIDE RECORDS SUMMARY | 2024-10-03 11:02 | XMS_ITS | Encounter Summary ---
Author Organization [facility] Address [address] [place] [address] Care Team Providers Care Set And Exhibit Designer Name Role Phone Yariel Patel DO Primary Care Provider Deanna Gabriel MD, PhD Unavailable [phone] Wilder Mackey MD Unavailable [phone] Wilder Mackey MD Unavailable [phone] Source Comments In the event this information is protected by the Federal Confidentiality of Alcohol and Drug AbusePatient Records regulations: The Federal rules restrict any use of the information to criminally investigate or prosecute any alcohol or drug abuse patient.[facility] Encounter Details Date Type Department Care Team (Late st Contact Info) Description 11/04/2012 Abstract Hematology/Oncology [address] [place] [address] Lorena Monaco, RETURN CLERK.ASPARAGUS CUTTER [address] [place] [address] Social History Tobacco Use Types Packs/Day Years [...] Description 10/06/2024 2:00 PM EDT Office Visit [facility] [address] [facility] [place] [address] 3 month follow up with lab 10/06/2024 2:20 PM EDT Visit (SP) Office Hematology/Oncology [address] [facility] [place] [address] Estbean Martinez MD [address] [facility] [place] [address] 3 month follow up with lab 10/12/2024 2:00 PM EDT Office Visit [facility] [address] [place] [address] [place] [address] Lior Montanez MD [address] [place], [place] [address] Diagnostics, Eye Tech And [address] [address] [address] [facility]. 01/28/2025 10:30 AM EST Office Visit Endocrinology [address] [facility] [place] [address] Paty Stoddard, RETURN CLERK.ASPARAGUS CUTTER [address] [facility] [place] [address] 4 month follow up DM 09/22/2025 10:15 AM EDT Office Visit [facility] [address] [facility] [place] [address] Callum Gutierrez MD [address] [place] [address] Diagnostics, Eye Tech And [address] [address] *YEARLY, DFE/OCT documented as of this encounter Visit Diagnoses Not on filedocumented in this encounter Care Teams Set And Exhibit Designer Relationship Specialty Start Date End Date Yariel Patel DO [address] [place] [address] PCP - General 07/04/00 Deanna Gabriel MD, PhD [address] [place] [address] Physician Endocrinology 02/09/18 Wilder Mackey MD [address] [place] [address] Primary Staff Physician Cardiology 06/09/18 Wilder Mackey MD [address] [place] [address] Primary Staff Physician Cardiology 06/09/18 documented as of this encounter
--- OUTSIDE RECORDS SUMMARY | 2024-10-03 11:02 | XMS_ITS | Encounter Summary ---
Author Organization [facility] Address [address] [place] [address] Phone Care Team Providers Care Clarifier Name Role Phone Jorge Yariel Nevilleard DO Primary Care Provider Yariel Patel DO Primary Care Provider Encounter Details Date Type Department Care Team (Late st Contact Info) Description 02/06/2023 Orders Only [facility] [address] [place] [phone] Scanning, Generic Provider Social History Tobacco Use Types Packs/Day [...] Description 05/12/2025 1:40 PM EST Office Visit [facility] [address] [facility] [address] [place] [address] David Jackson MD [address] [place] [address] documented as of this encounter Procedures Procedure Name Priority Date/Time Associated Diagnosis Comments OUTSIDE DEVICE CHECK - ONBASE SCAN 02/06/2023 documented in this encounter Results * OUTSIDE DEVICE CHECK - ONBASE SCAN (02/06/2023) Narrative 02/06/2023 Ordered by an unspecified provider. us Generic Provider Scanning CV CARDIAC SERVICES OR OCEDURES Final Result documented in this encounter Visit Diagnoses Not on filedocumented in this encounter Care Teams Clarifier Relationship Specialty Start Date End Date Yariel Patel DO PCP - General 06/20/10 09/13/24 Yariel Patel DO [address] [facility] [place] [address] PCP - General Family Medicine 09/14/24 documented as of this encounter
--- OUTSIDE RECORDS SUMMARY | 2024-10-03 11:02 | XMS_ITS | Encounter Summary ---
Author Organization [facility] Address [id number] [address] [place] [address] Care Team Providers Care Crester Name Role Phone Yariel Patel DO Primary Care Provider [phone] Encounter Details Date Type Department Care Team (Late st Contact Info) Description 11/11/2022 Orders Only [facility] Internal Medicine - Family Medicine [address] [place] [address] Yariel Patel DO [address], [facility] [place] [address] Social History Tobacco Use Types Packs/Day Years [...] Never 08/29/2022 How often do you attend chur ch or church services? More than 4 times per year 08/29/2022 Do you belong to any clubs o r organizations such as alevism groups, unions, fraternal or athletic groups, or [...] 08/29/2022 PHQ-2 Answer Date Recorded Total Score 2 08/29/2022 [facility] Questionnaire Answer Date Recorded [...] Recorded Do you need help finding a [facility] career [facility] and/or a training program? No 08/29/2022 Hunger Screening Answer Date Recorded Within the past 12 months we worried whether our food would run out before we got money to buy more. Never True 08/29/2022 Within the past 12 months th e food we bought just didn't last and we didn't have money to get more. Never True 08/29/2022 Purpose - Life Answer Date Recorded I [...] - Family Medicine [address] [place] [address] documented as of this encounter Procedures Procedure Name Priority Date/Time Associated Diagnosis Comments XR CHEST 1 VW Routine 11/11/2022 4:51 PM EDT documented in this encounter Results * X-ray chest 1 view (11/11/2022 4:51 PM EDT) Anatomical Region Laterality Modality Body, Chest N/A Computed Radiogr aphy us Scanning Provider External IMG DIAGNOSTIC IMAGIN G ORDERABLES Final Result documented in this encounter Visit Diagnoses Not on filedocumented in this encounter Additional Health Concerns Assessment Noted Time PHQ-9 Depression Total Score: 2 08/30/19 23 2:05 PM EDT documented as of this encounter Care Teams Crester Relationship Specialty Start Date End Date Yariel Patel DO [address] [place] [address] PCP - General Family Medicine 03/11/22 Sabrina Haq LPN [facility] 11/18/23 documented as of this encounter
--- OUTSIDE RECORDS SUMMARY | 2024-10-03 11:02 | XMS_ITS | Encounter Summary ---
Author Organization [facility] Address [address] [place] [address] Care Team Providers Care Electrical Design Engineer Name Role Phone Yariel Patel DO Primary Care Provider Deanna Gabriel MD, PhD Unavailable [phone] Wilder Mackey MD Unavailable [phone] Source Comments In the event this information is protected by the Federal Confidentiality of Alcohol and Drug AbusePatient Records regulations: The Federal rules restrict any use of the information to criminally investigate or prosecute any alcohol or drug abuse patient.[facility] Encounter Details Date Type Department Care Team (Late st Contact Info) Description 01/15/2024 Patient Msg Cardiology [address] [facility] [place] [address] Provider, Ccf Reschedule Appointment Social History Tobacco Use Types Packs/Day Years [...] is lower risk 6 08/09/2022 Data from: https://www.neighborhoodatlas.medicine.[facility]/. Last address used for calculation [address] [...] Author No 10/25/2014 2:28 PM EDT Karis aDi Ma * Because of a physical, mental, [...] Description 10/06/2024 2:00 PM EDT Office Visit [facility] [address] [place] [address] [place] [address] 3 month follow up with lab 10/06/2024 2:20 PM EDT Visit (SP) Office Hematology/Oncology [address] [place] [address] Esteban Martinez MD [address] [place] [address] 3 month follow up with lab 10/12/2024 2:00 PM EDT Office Visit [facility] Op[facility] [address] [place] [address] [place] [address] Lior Montanez MD [address] [place] [address] Diagnostics, Eye Tech And [address] [address] [address] Montanez [facility]. 01/28/2025 10:30 AM EST Office Visit Endocrinology [address] [place] [address] Paty Stoddard, PROTOTYPE MACHINIST.TOOLMAKER GRADE THREE [address] [facility] [place] [address] 4 month follow up DM 09/22/2025 10:15 AM EDT Office Visit [facility] Op[facility]mology [address] [place] [address] Callum Gutierrez MD [address] [place] [address] Diagnostics, Eye Tech And [address] [address] *YEARLY, DFE/OCT documented as of this encounter Visit Diagnoses Not on filedocumented in this encounter Care Teams Electrical Design Engineer Relationship Specialty Start Date End Date Yariel Patel DO [address] [place] [address] PCP - General 07/04/00 Deanna Gabriel MD, PhD [address] [place] [address] Physician Endocrinology 02/09/18 Wilder Mackey MD [address] [place] [address] Primary Staff Physician Cardiology 06/09/18 documented as of this encounter
--- OUTSIDE RECORDS SUMMARY | 2024-10-03 11:02 | XMS_ITS | Encounter Summary ---
Author Organization [facility] Address [address] [place] [address] Phone Care Team Providers Care Tool And Die Maker Apprentice Name Role Phone Yariel Patel DO Primary Care Provider Yariel Patel DO Primary Care Provider Encounter Details Date Type Department Care Team (Late st Contact Info) Description 11/28/2023 Scanned Document [facility] [address] [place] [id number] Scanning, Generic Provider Social History Tobacco Use [...] Description 05/12/2025 1:40 PM EST Office Visit [facility] [address] [address] David Jackson MD [address] [facility] 2, [address] [place] [address] Scheduled Orders Name Type Priority Associated Diagnoses Orde r Schedule Ultrasound- OnBase Scan Imaging O rdered: 11/28/2023 documented as of this encounter Visit Diagnoses Not on filedocumented in this encounter Additional Health Concerns Assessment Noted Time A fall risk assessment has been complete d for the patient 05/19/2023 10:15 AM EST documented as of this encounter Care Teams Tool And Die Maker Apprentice Relationship Specialty Start Date End Date Yariel Patel DO PCP - General 06/20/10 09/13/24 Yariel Patel DO [address] [facility] [place] [address] PCP - General Family Medicine 09/14/24 documented as of this encounter
--- OUTSIDE RECORDS SUMMARY | 2024-10-03 11:02 | XMS_ITS | Encounter Summary ---
Author Organization [employer] [facility] tem Address [facility] [id number] [address] [place] [address] Care Team Providers Care Soaking Tank Worker Name Role Phone Yariel Patel DO Primary Care Provider + [phone] Encounter Details Date Type Department Care Team (Late Contact Info) Description 07/15/2022 Orders Only [facility] - Family Medicine [address] [place] [address] Isabela Mahajan CMA Spondylosis of lumbosacral region without myelopathy or radiculopathy Social History Tobacco Use Types Packs/Day Years Used Date Smoking Tobacco: Never Smokeless Tobacco: Never Alcohol Use Standard Drinks/Week Comments Never 0 (1 standard drink = 0.6 oz pur e alcohol) PHQ-2 Answer Date Recorded Total Score 0 07/15/2022 Sex and Gender Information Value Date Recorded Sex Assigned at Not on file Legal Sex Male 12:00 PM EST Gender Identity Not on file Sexual Orientation Not on file documented as of this encounter Plan of Treatment Upcoming Encounters Date Type Department Care Team (Late Contact Info) Description 10/19/2024 1:00 PM EDT Office Visit [facility] - Family Medicine [address] [place] [phone] documented as of this encounter Procedures Procedure Name Priority Date/Time Associated Diagnosis Comments XR SPINE LUMBAR 2 OR 3 VWS Routine 07/15/2022 2:46 PM EDT Spondylosis of lumbosacral region without myelopathy or radiculopathy documented in this encounter Results * X-ray spine lumbar 2 or 3 views (07/15/2022 2:46 PM EDT) Anatomical Region Laterality Modality MSK, Neuro, Spine, L-spine N/A Compu stepan Radiography Angle Michael FREIGHT CALLER-MACHINE RECORDS UNITS SUPERVISOR IMG DIAGNOSTIC IMAGING ORDGlenda CORDERO Final Result documented in this encounter Visit Diagnoses Diagnosis Spondylosis of lumbosacral region without myelopathy or radiculopathy documented in this encounter Additional Health Concerns Assessment Noted Time PHQ-9 Depression Total Score: 0 07/16/19 23 11:23 AM EDT documented as of this encounter Care Teams Soaking Tank Worker Relationship Specialty Start Date End Date Yariel Patel DO [address] [facility], [place] [address] PCP - General Family Medicine 03/11/22 Sabrina Haq LPN [facility] Nurse - [facility] 11/18/23 documented as of this encounter
--- OUTSIDE RECORDS SUMMARY | 2024-10-03 11:02 | XMS_ITS | Clinical Summary ---
Author Organization [facility] Address [address] [place] [address] Phone Care Team Providers Care Attorney Recruiter Name Role Phone Yariel Patel DO Primary Care Provider Allergies Active Allergy Reactions Criticality Noted Date Comments Penicillins Hives 04/09/2023 Medications NovoLOG Mix 70-30FlexPen U-100 100 unit/mL (70-30) injection Inject under the skin 3 times a day. 06/26/19 16 Active ofloxacin (Ocuflox) 0.3 % ophthalmic solution Administer into affected eye(s). 02/14/20 16 Active tamsulosin (Flomax) 0.4 mg 24 hr capsule Take 1 capsule (0.4 mg) by mouth once daily. 07/07/19 23 Active leuprolide, 3-month, (Lupron Depot) 22.5 mg injection Inject 22.5 mg into the muscle every 3 months. Active rivaroxaban (Xarelto) 15 mg tabletIndications: Paroxysmal atrial fibrillation (Multi) Take 1 tablet (15 mg) by mouth 2 times daily (morning and late afternoon). Take with food. 180 tablet 3 12/24/19 24 025 Active atorvastatin (Lipitor) 40 mg tabletIndications: Hyperlipidemia, unspecified hyperlipidemia type Take 1 tablet (40 mg) by mouth once daily at bedtime. 90 tablet 3 08/10/19 25 026 Active furosemide (Lasix) 20 mg tablet Take 1 tablet (20 mg) by mouth once daily. Active dapagliflozin propanediol (Farxiga) 10 mg tablet Take 1 tablet (10 mg) by mouth once daily. Active metoprolol succinate XL (Toprol-XL) 50 mg 24 hr tabletIndications: Essential hypertension Take 1 tablet (50 mg) by mouth once daily. 90 tablet 3 09/29/19 25 026 Active losartan (Cozaar) 50 mg tabletIndications: Essential hypertension Take 1 tablet (50 mg) by mouth once daily. 90 tablet 3 09/29/19 25 026 Active levothyroxine (Synthroid, Levoxyl) 25 mcg tabletIndications: Hyperthyroidism Take 1 tablet (25 mcg) by mouth once daily in the morning. Take before meals. 90 tablet 3 09/29/19 25 026 Active omeprazole (PriLOSEC) [address] capsule Take 1 capsule (20 mg) by mouth once daily. 06/25/19 17 Discontinu ed(Discont inued by another clinician) losartan (Cozaar) 50 mg tabletIndications: Essential hypertension Take 1 tablet (50 mg) by mouth once daily. 90 tablet 3 11/06/19 24 025 Discontinu ed(Reorder ) levothyroxine (Synthroid, Levoxyl) 25 mcg tabletIndications: Hyperthyroidism Take 1 tablet (25 mcg) by mouth once daily in the morning. Take before meals. 90 tablet 3 11/06/19 24 025 Discontinu ed(Reorder ) FLUoxetine (PROzac) 20 mg capsule Take 1 capsule (20 mg) by mouth once daily. Discontinu ed(Discont inued by another clinician) furosemide (Lasix) 40 mg tabletIndications: Localized edema Take 1 tablet (40 mg) by mouth once daily. 90 tablet 3 04/21/19 25 025 Discontinu ed(Dose adjustment ) digoxin (Lanoxin) 125 MCG tabletIndications: Sick sinus syndrome (Multi) Take 1 tablet (125 mcg) by mouth once daily. 90 tablet 3 07/13/19 25 025 Discontinu ed(Therapy completed) metoprolol succinate XL (Toprol-XL) 25 mg 24 hr tabletIndications: Essential hypertension Take 1 tablet (25 mg) by mouth once daily. 90 tablet 3 07/13/19 25 025 Discontinu ed(Reorder ) Active Problems Problem Noted Date Diagnosed Date BMI 26.0-26.9,adult 12/24/2023 Mild coronary artery disease 12/24/2023 LV dysfunction 12/24/2023 Stage 3a chronic kidney disease (Multi) 12/24/19 24 Never smoked tobacco 05/19/2023 Diabetes mellitus (Multi) 04/09/2023 Essential hypertension 04/09/2023 Hyperlipidemia 04/09/2023 Hyperthyroidism 04/09/2023 Left chronic otitis media 04/09/2023 Non Hodgkin's lymphoma 04/09/2023 Pacemaker 04/09/2023 Paroxysmal atrial fibrillation (Multi) Sick sinus syndrome (Multi) 04/09/2023 snf current use of anticoagulant therapy 0 04/09/2023 Resolved Problems Problem Noted Date Diagnosed Date Resolved Date High risk medication use 04/09/202310/2024 Encounters Date Type Department Care Team Description 09/28/2024 1:20 PM EDT Office Visit [address] [phone] David Jackson MD Sick sinus syndrome (Multi) (Primary Dx); Paroxysmal atrial fibrillation (Multi); Pacemaker; Mild coronary artery disease; LV dysfunction; Mixed hyperlipidemia; Essential hypertension; manager terminal current use of anticoagulant therapy; Stage 3a chronic kidney disease (Multi); BMI 26.0-26.9,adult; Never smoked tobacco; Hyperthyroidism 09/28/2024 Travel 08/09/[address] [phone] Jodi Sue LPN Hyperlipidemia, unspecified hyperlipidemia type 07/12/[address] [phone] Denise Guerrero LPN Sick sinus syndrome (Multi); Essential hypertension from Last 3 Months Immunizations Immunization Administration Dates Next Due DTP 12/09/2020 Pfizer Purple Cap SARS-CoV-2 06/28/2020 Pneumococcal conjugate vaccine, 13-valent (PREVN AR 13) 01/27/2017 Pneumococcal polysaccharide vaccine, 23-valent, age 2 years and older (PNEUMOVAX 23) 03/24/2010,03/24/2006 Tdap vaccine, age 7 year and older (BOOSTRIX, AD ACEL) 12/09/2020 Social History Tobacco Use Types Packs/Day Years [...] on file Sexual Orientation Not on file Last Filed Vital Signs Vital Sign Reading [...] Mass Index 26.76 09/28/2024 1:19 PM EDT Plan of Treatment Upcoming Encounters Date Type Department Care Team (Late st Contact Info) Description 05/12/2025 1:40 PM EST Office Visit [facility] [address] [phone] David Jackson MD 703 [facility] 2, [address] [address] Health Maintenance Due Date Last Done Comments Creatinine Level 1935 Lipid Panel 1935 Potassium Level 1935 Diabetes: Retinopathy Screening 1945 Zoster Vaccines (1 of 2) 11/21/1955 RSV High Risk: (Elderly (60+) or Population) (1 - 1-dose 75+ series) 11/21/2011 COVID-19 Vaccine (2 - Pfizer risk series) 07/19/2020 06/28/2020 Echocardiogram 03/20/2023 03/20/2022, 1210/2021, 03/20/2022 TSH Level 05/12/2024 05/12/2023 Diabetes: Hemoglobin A1C 10/07/2024 025, 03/02/2024, 11/14/2023, Additional history exists Medicare Annual Wellness Visit (AWV) 10/16/2024 10/16/2023, 08/29/2022, 07/28/2020, Additional history exists Influenza Vaccine (#1) 2024 Diabetes: Urine Protein Screening 11/30/2024 12/01/2023, 05/12/2023 DTaP/Tdap/Td Vaccines (4 - Td or Tdap) 12/09/2030 12/09/2020, 12/09/2020, 11/22/2020 Pneumococcal Vaccine Completed 01/27/2017, 11/07/2014, 01/29/2011, Additional history exists HIB Vaccines Aged Out No longer eligi ble based on patient's age to complete this topic HPV Vaccines (No Doses Required) Completed Hepatitis A Vaccines Aged Out No long er eligible based on patient's age to complete this topic Hepatitis B Vaccines Aged Out No long er eligible based on patient's age to complete this topic IPV Vaccines Aged Out No longer eligi ble based on patient's age to complete this topic Meningococcal Vaccine Aged Out No marylin isaiah eligible based on patient's age to complete this topic Rotavirus Vaccines Aged Out No longer eligible based on patient's age to complete this topic Procedures Procedure Name Priority Date/Time Associated Diagnosis Comments ECHOCARDIOGRAM 03/20/2022 from Last 3 Months or Most Recently Relevant to Health Maintenance Results * ECHOCARDIOGRAM (03/20/2022) Narrative 03/20/2022 Ordered by an unspecified provider. us Onbase Conversion CV ECHO PROCEDURES Final Resul t from Last 3 Months or Most Recently Relevant to Health Maintenance Insurance MEDICARE PART A AND B AAR Care Teams Attorney Recruiter Relationship Specialty Start Date End Date Yariel Patel DO [address], [facility] [place] [address] PCP - General Family Medicine 09/14/24
--- OUTSIDE RECORDS SUMMARY | 2024-10-03 11:02 | XMS_ITS ---
Author Organization [facility] Address [address] [place], [place] [address] Care Team Providers Care [place] Police Lieutenant Name Role Phone Yariel Patel DO Primary Care Provider Deanna Gabriel MD, PhD Unavailable [phone] Wilder Mackey MD Unavailable [phone] Active Problems Problem Noted Date Diagnosed Date Impotence 10/27/2019 Hyperlipidemia 10/27/2019 Gastroesophageal reflux disease 10/27/2019 Chronic renal insufficiency, stage III (moderate ) 10/27/2019 Chronic otitis externa 10/27/2019 Rhinitis 10/27/2019 Acquired hypothyroidism 10/07/2019 Lumbosacral radiculopathy 10/07/2018 Degeneration of lumbosacral intervertebral disc 10/07/2018 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 08/05/2017 termite technician current use of antithrombotics/antipla telets 06/18/2017 Cervicalgia 06/18/2017 Low back pain 06/18/2017 Epiretinal membrane (ERM) of both eyes 7 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 Pseudophakia of both eyes 11/28/2016 Type 2 diabetes mellitus without retinopathy 09/2016 Atherosclerotic heart diseas e of [place] coronary artery without angina pectoris 10/09/2016 Chronic obstructive pulmonary disease 10/08/2016 Sick sinus syndrome 11/19/2015 Paroxysmal atrial fibrillation 11/19/2015 Type 2 diabetes mellitus wit h stage 3b chronic kidney disease, with long-term current use of insulin 05/25/2015 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 Hypertrophy of prostate with out urinary obstruction and other lower urinary tract symptoms (LUTS) 06/28/2014 PSA elevation 06/28/2014 Type 2 diabetes mellitus with renal manifestatio ns 06/16/2014 Prostate CA 10/26/2013 NHL (non-Hodgkin's lymphoma) 01/30/2012 Enlargement of lymph nodes 07/10/2011 Hypertension 11/07/2009 Dyslipidemia 11/07/2009 Current Treatment and Therapy Plans AMB LEUPROLIDE 45 D1 - Q175D* Plan Start Date:07/07/2023 Plan Provider:Esteban Martinez MD Linked Problems Prostate CA (HCC)PSA elevati on Treatment Medications Current Day (Day 1 , Cycle 4 - Planned for 12/21/2024) leuprolide (ELIGARD)leuproli de acetate (6 month) (LUPRON) leuprolide 45 mg injection (ELIGARD) Past Treatment and Therapy Plans NON-CHEMO 1 Plan Name Start Date Discontinue Date Treatment Medications Discontinue Reason Plan Provider Cycles AMB LEUPROLIDE 22.5 D1 - Q91D 02/09/20 22 01/10/2023 leuprolide (LUPRON DEPOT) Other Esteban Martinez MD 2 of 4 cycles started CENTRAL LINE FLUSH - Weekly x 24 weeks 02/20/20 12 No medications scheduled. Treatment Complete Lorena Monaco APRN.CANDACE 1 of 1 cycle started ONCOLOGY REGIMEN Plan Name Start Date Discontinue Date Treatment Medications Discontinue Reason Plan Provider Cycles LEUPROLIDE 22.5 D1 - Q91D 06/22/2018 01/31/2020 leuprolide (LUPRON DEPOT) Other Jeffrey Escobedo, DO Treatment not started Resolved Problems Problem Noted Date Diagnosed Date Resolved Date 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 09/27/2014 11/28/2016 Lens replaced by other means - Both Eyes 09/27/2014 11/28/2016 Type 2 diabetes mellitus, uncontrolled 11/07/2009 05/28/2016
--- OUTSIDE RECORDS SUMMARY | 2024-10-03 11:02 | XMS_ITS | Encounter Summary ---
Author Organization [facility] Address [address] [place] [place] [address] Care Team Providers Care Boiler Assistant Operator Name Role Phone Yariel Patel MD Primary Care Provider [phone] Encounter Details Date Type Department Care Team (Late Contact Info) Description 01/19/2024 External Result Encounter [facility] External Department Unsolicited Piyush Heard PA [address] [place] [address] Social History Tobacco Use Types [...] EDT Office Visit [facility] [address] [facility] [address] [place] [phone] Latoya Dhillon MD 112 [facility] [address] [place], [place] [phone] documented as of this encounter Procedures Procedure Name Priority Date/Time Associated Diagnosis Comments XR SACROILIAC JOINTS 3+ VIEWS 01/19/2024 3:29 PM EDT documented in this encounter Results * XR sacroiliac joints 3+ views (01/19/2024 3:29 PM EDT) Anatomical Region Laterality Modality Sacroiliac joint, Pelvis Radiogr aphic Imaging 01/19/2024 3:29 PM EDT Impressions 01/19/2024 3:33 PM EDT Mild SI joint degeneration greater on the RIGHT Impression dictated by: Tino Rain M.D.01/19/2024 3:31 PM Dictation Location: [facility]01 Transcribed By: PWS 01/19/24 1531 Dictated By: Tino Rain DO 01/19/24 1529 Signed By: <Electronically signed by Tino Rain DO in OV> 01/19/24 1531 Narrative 01/19/2024 3:33 PM EDT [facility] [place] [address] XRay Report Signed Patient: Alec Gunderson MR#: [id number] : 1935 Acct:[id number] Age/Sex: 88 / M ADM Date: 01/19/24 Loc: XDS Room: Type: REG CLI Attending Dr: Piyush Heard PA-C Copies to: Piyush Heard PA-C Ordering Provider: Piyush Heard PA-C Date of Service: 01/19/24 XR/XR si joints: PAIN 3 views of SI joints HISTORY: Low back pain and groin pain. Extensive multilevel lumbar degeneration with mild scoliosis. Mild bilateral SI joint degeneration greater on the RIGHT. Sclerotic changes of the iliac side of the RIGHT sacroiliac joint. Mild bilateral hip degeneration. Prostate radiation seeds. No dislocation or acute fracture. Unremarkable soft tissues. XR/XR si joints Procedure Note Radiology, Radiologist, - 01/19/2024 [place] [id number] XRay Report Signed Patient: Alec Gunderson WMR#: [id number] : 1935cct:[id number] Age/Sex: 88 / MADM Date: 01/19/24 Loc: XDS Room:Type: REG CLI Attending Dr: Piyush Heard PA-C Copies to: Piyush Heard PA-C Ordering Provider: Piyush Heard PA-C Date of Service: 01/19/24 XR/XR si joints: PAIN 3 views of SI joints HISTORY: Low back pain and groin pain. Extensive multilevel lumbar degeneration with mild scoliosis. Mildbilateral SI joint degeneration greater on the RIGHT. Sclerotic changes of the iliac side of the RIGHTsacroiliac joint. Mild bilateral hip degeneration. Prostate radiation seeds. No dislocation oracute fracture. Unremarkable soft tissues. XR/XR si joints IMPRESSION: Mild SI joint degeneration greater on the RIGHT Impression dictated by: Tino Rain M.D.01/19/2024 3:31 PM Dictation Location: [place] [address] Transcribed By: [facility] 01/19/24 1531 Dictated By: Tino Rain DO 01/19/24 1529 Signed By: <Electronically signed by Tino Rain DO in OV> 01/19/24 1531 us Piyush SMITH IMG XR PROCEDURES Final Resul t documented in this encounter Visit Diagnoses Not on filedocumented in this encounter Care Teams Boiler Assistant Operator Relationship Specialty Start Date End Date Yariel Patel MD [address], [facility] [place] [address] PCP - General Family Medicine 07/08/24 documented as of this encounter
--- OUTSIDE RECORDS SUMMARY | 2024-10-03 11:02 | XMS_ITS | Encounter Summary ---
Author Organization [facility] Address [address] [place] [address] Phone Care Team Providers Care Microwave Radio Technician Name Role Phone Yariel Patel DO Primary Care Provider Encounter Details Date Type Department Care Team (Latest Contact Info) Description 09/28/2024 Travel Social History Tobacco Use Types Packs/Day Years [...] Description 05/12/2025 1:40 PM EST Office Visit [facility] [address] [phone] David Jackson MD [address] [facility] 2, [address] [place] [address] documented as of this encounter Visit Diagnoses Not on filedocumented in this encounter Additional Health Concerns Assessment Noted Time A fall risk assessment has been complete d for the patient 09/28/2024 1:19 PM EDT documented as of this encounter Care Teams Microwave Radio Technician Relationship Specialty Start Date End Date Yariel Patel DO [address] [place] [address] PCP - General Family Medicine 09/14/24 documented as of this encounter
--- OUTSIDE RECORDS SUMMARY | 2024-10-03 11:02 | XMS_ITS | Encounter Summary ---
Author Organization [facility] Address [address] [place] [address] Phone Care Team Providers Care Director Orange Name Role Phone Yariel Patel DO Primary Care Provider Yariel Patel DO Primary Care Provider Encounter Details Date Type Department Care Team (Late st Contact Info) Description 03/22/2022 Orders Only [facility] [address] [place] [address] Conversion, Onbase Social History Tobacco Use Types [...] Description 05/12/2025 1:40 PM EST Office Visit [facility] 703 [facility] [address] [place] [address] David Jackson MD 703 [facility] 2, [address] [place] [address] Scheduled Orders Name Type Priority Associated Diagnoses Orde r Schedule OUTSIDE LAB SCAN Lab Ordered: 03/22/2022 OUTSIDE LAB SCAN Lab Ordered: 03/22/2022 documented as of this encounter Visit Diagnoses Not on filedocumented in this encounter Care Teams Director Orange Relationship Specialty Start Date End Date Yariel Patel DO PCP - General 06/20/10 09/13/24 Yariel Patel, [address], [facility] [place] [address] PCP - General Family Medicine 09/14/24 documented as of this encounter
--- OUTSIDE RECORDS SUMMARY | 2024-10-03 11:02 | XMS_ITS | Clinical Summary ---
Author Organization prettysecretss tem Address [id number] [address] [place] [address] Care Team Providers Care Actuarial Trainee Name Role Phone Yariel Patel Primary Care Provider + [phone] Allergies Active Allergy Reactions Criticality Noted Date Comments Penicillins Hives,Shortness Of Breath High 0 Medications XARELTO 20 mg tablet tablet Take 1 tablet (20 mg total) by mouth in the morning. 2 Active losartan (COZAAR) 50 mg tablet Take 1 tablet (50 mg total) by mouth in the morning and 1 tablet (50 mg total) before bedtime. 2 Active levothyroxine (SYNTHROID, LEVOTHROID) 25 MCG tablet Take 1 tablet (25 mcg total) by mouth in the morning. 2 Active NovoLOG Mix 70-30FlexPen U-100 100 unit/mL (70-30) insulin pen INJECT 38 UNITS SUBCUTANEOUSLY WITH BREAKFAST then INJECT 28 UNITS SUBCUTANEOUSLY at lunch then INJECT 34 UNITS SUBCUTANEOUSLY at dinner 2 Active digoxin (LANOXIN) 125 mcg tablet Take 1 tablet (125 mcg total) by mouth in the morning. 2 Active CONTOUR NEXT TEST STRIPS strip use to test BLOOD SUGAR THREE TIMES DAILY 3 Active atorvastatin (LIPITOR) 40 mg tablet Take 1 tablet (40 mg total) by mouth nightly. 2 Active loratadine (CLARITIN) 10 mg tablet as needed. Active omeprazole (PriLOSEC) 20 mg capsule omeprazole 20 mg capsule,delayed release Take 1 capsule every day by oral route. Active traMADoL (ULTRAM) 50 mg tablet tramadol 50 mg tablet Active ezetimibe-simv astatin (VYTORIN) 10-20 mg per tablet 1 tablet Orally daily Active insulin NPH and regular human (NovoLIN 70/30 U-100 Insulin) 100 unit/mL (70-30) injection 24 units in AM, 11 units PM Subcutaneous Active metoprolol succinate XL (TOPROL XL) 25 mg 24 hr tablet Take 1 tablet (25 mg total) by mouth in the morning. 3 Active ramipriL (ALTACE) 2.5 mg capsule 1 capsule (2.5 mg total). Active catheter miscIndication s:Nocturia,Pro state cancer ([facility]) 1 Unit by miscellaneous route in the morning. Has excessive nocturia that is interrupting sleep, has prostate cancer that is being treated with lupron and is also on farxiga that increases urination. 1 each 1 3 Active tamsulosin (FLOMAX) 0.4 mg capsule Take 1 capsule (0.4 mg total) by mouth in the morning. 3 Active dapagliflozin (FARXIGA) 10 mg tablet Take 1 tablet (10 mg total) by mouth daily with breakfast. 3 Active omeprazole (PriLOSEC OTC) 20 mg EC tablet Take 1 tablet (20 mg total) by mouth every morning before breakfast. Active UNIFINE PENTIPS PLUS 32 gauge x 5/32 needle USE PENTIPS WITH INSULIN THREE TIMES DAILY DIRECTED 3 Active TRUE METRIX GLUCOSE METER misc USE DIRECTED 4 Active UNILET LANCET 33 gauge misc USE DIRECTED to test BLOOD SUGAR THREE TIMES DAILY 4 Active leuprolide acetate, 6 month, (ELIGARD) 45 mg injection Inject 45 mg under the skin in the morning and 45 mg at noon and 45 mg in the evening. Active FLUoxetine (PROzac) 20 mg capsule TAKE 1 CAPSULE BY MOUTH IN THE MORNING 90 capsule 1 4 Active Active Problems Problem Noted Date Diagnosed Date Nonischemic cardiomyopathy 08/27/2023 Diffuse large B-cell lymphoma, unspecified body region 08/15/2023 Left chronic otitis media 04/09/2023 Hyperthyroidism 04/09/2023 Hyperlipidemia 04/09/2023 Nocturia 05/06/2022 Benign prostatic hyperplasia 04/05/2022 Malignant neoplasm of prostate 04/05/2022 Reactive depression 04/05/2022 Chronic otitis externa 10/27/2019 Chronic renal insufficiency, stage III (moderate ) 10/27/2019 Rhinitis 10/27/2019 Gastroesophageal reflux disease 10/27/2019 Impotence 10/27/2019 Acquired hypothyroidism 10/07/2019 Degeneration of lumbosacral intervertebral disc 10/07/2018 Lumbosacral radiculopathy 10/07/2018 Neck pain 06/18/2017 Epiretinal membrane (ERM) of both eyes 7 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 Pseudophakia of both eyes 11/28/2016 Atherosclerotic heart diseas e of [place] coronary artery without angina pectoris 10/09/2016 Chronic obstructive pulmonary disease 10/08/2016 Paroxysmal atrial fibrillation 11/19/2015 Sick sinus syndrome 11/19/2015 Uncontrolled type 2 diabetes mellitus with stage 3 chronic kidney disease, with long-term current use of insulin 05/25/2015 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 Type 2 diabetes mellitus with renal manifestatio ns 06/16/2014 Prostate CA 10/26/2013 Non Hodgkin's lymphoma 01/30/2012 Dyslipidemia 11/07/2009 Essential hypertension 11/07/2009 Immunizations Immunization Administration Dates Next Due COVID-19, mRNA, LNP-S, PF, 3 0mcg/0.3mL Dose 06/28/2020,06/22/2020,06/07/2020,05/22 DTP 12/09/2020,11/22/2020 Pneumococcal Conjugate 13-Valent 01/27/2017,10/22 Pneumococcal Polysaccharide 01/29/2011, 1,03/24/2006 Tdap 12/09/2020 Social History Tobacco Use Types Packs/Day Years Used Date Smoking Tobacco: Never Smokeless Tobacco: Never Tobacco Cessation:Counseling Given: Not Answered Alcohol Use Standard Drinks/Week Comments Never 0 (1 standard drink = 0.6 oz pur e alcohol) [facility] Utilities Answer Date Recorded In the past 12 months has e [employer], gas, oil, or water company threatened to shut off services in your home? No 10/16/2023 Social Connection and Isolat ion Panel [NHANES] Answer Date Recorded In a typical week, how many times do you talk on the phone with family, friends, or neighbors? Twice a week 10/16/2023 How often do you get togethe r with friends or relatives? Never 10/16/2023 How often do you attend chur ch or samaritan services? More than 4 times per year 10/16/2023 Do you belong to any clubs o r organizations such as methodist groups, unions, fraternal or athletic groups, or school groups? No 10/16/2023 How often do you attend meet ings of the clubs or organizations you belong to? Never 10/16/2023 Are you , , di vorced, , never , or living with a partner? 10/16/2023 AUDIT-C Answer Date Recorded Q1: How often [...] PHQ-2 Answer Date Recorded Total Score 0 10/16/2023 [facility] - Occupational Stress Questionnaire Answer Date Recorded [...] exercise (like a brisk walk)? 0 days 10/16/2023 On average, how many minutes do you engage in exercise at this level? 0 min 10/16/2023 PRAPARE - Transportation Answer Date Re corded [...] Recorded Do you need help finding a the [facility] career center and/or a training program? No 08/29/2022 Hunger Screening Answer Date Recorded Within the past 12 months we worried whether our food would run out before we got money to buy more. Never True 10/16/2023 Within the past 12 months th e food we bought just didn't last and we didn't have money to get more. Never True 10/16/2023 Purpose - Life Answer Date Recorded I have a purpose and direction in my life. Zoey gly Agree 08/29/2022 Sex and Gender Information Value Date Recorded Sex Assigned at Not on file Legal Sex Male 12:00 PM EST Gender Identity Not on file Sexual Orientation Not on file Last Filed Vital Signs Vital Sign Reading Time Taken Comments Blood Pressure 140/80 10/16/2023 10:17 AM EDT Pulse 60 08/27/2023 11:45 AM EDT Temperature 36.2 C (97.2 F) 08/27/2023 11:45 AM EDT Respiratory Rate 22 08/27/2023 11:45 AM EDT Oxygen Saturation 97% 08/27/2023 11:45 AM EDT Inhaled Oxygen Concentration - - Weight 78.9 kg (174 lb) 10/16/2023 10:17 AM EDT Height 170.2 cm (5' 7 ) 10/16/2023 10:17 AM EDT Body Mass Index 27.25 10/16/2023 10:17 AM EDT Plan of Treatment Upcoming Encounters Date Type Department Care Team (Late st Contact Info) Description 10/19/2024 1:00 PM EDT Office Visit [facility] - Family Medicine [address] [place] [address] Health Maintenance Due Date Last Done Comments Zoster (Shingles) Vaccine (1 of 2) 11/21/1954 COVID-19 Vaccine (2023-2 5 season) 2023 06/28/2020, 06/22/2020, 06/07/2020, Additional history exists Tobacco Screening 08/13/2024 08/14/2023 Depression Screening 10/15/2024 10/16/2023 Fall Risk Screening 10/15/2024 10/16/2023 Medicare Annual Wellness Visit 10/15/2024 10/16/2023 , 08/29/2022 Influenza Vaccine 11/22/2024 DTaP,Tdap and Td Vaccines (4 - Td or Tdap) 12/09/2030 12/09/2020, 12/09/2020, 11/22/2020 Medical Devices [place] [address] MEDICARE [facility] Care Teams Actuarial Trainee Relationship Specialty Start Date End Date Yariel Patel DO [address] [place] [address] PCP - General Family Medicine 03/11/22 Sabrina Haq LPN [facility] Nurse - [employer] 11/18/23
--- OUTSIDE RECORDS SUMMARY | 2024-10-03 11:02 | XMS_ITS | Encounter Summary ---
Author Organization [facility] Address [address] [place] [address] Care Team Providers Care Income Tax Auditor Name Role Phone Yariel Patel MD Primary Care Provider [phone] Encounter Details Date Type Department Care Team (Late Contact Info) Description 06/21/2020 Abstract [facility] [address] [place] [id number] Shazia Bauman, [facility] [address] [place] [address] Social History Tobacco Use Types Packs/Day Years [...] WAY [facility] [address] [place] [address] Latoya Dhillon MD [address] [facility] [address] [place] [address] documented as of this encounter Visit Diagnoses Not on filedocumented in this encounter Care Teams Income Tax Auditor Relationship Specialty Start Date End Date Yariel Patel MD [address] [facility], [place] [address] PCP - General Family Medicine 07/08/24 documented as of this encounter
--- OUTSIDE RECORDS SUMMARY | 2024-10-03 11:02 | XMS_ITS | Clinical Summary ---
Author Organization [facility] Address [address] [place] [address] Care Team Providers Care Digital Ad Trafficker Name Role Phone Yariel Patel MD Primary Care Provider Allergies Active Allergy Reactions Criticality Noted Date Comments Penicillin G Rash Low 09/03/2022 Medications rivaroxaban (Xarelto) 15 MG tablet 1 (one) time each day at the same time Active insulin NPH-insulin regular (NovoLIN 70/30) (70-30) 100 UNIT/ML injection Active levothyroxine (Levoxyl) 25 MCG tablet 1 (one) time each day at the same time Active losartan (Cozaar) 50 MG tablet 1 (one) time each day at the same time Active metoprolol succinate XL (Toprol XL) 25 MG 24 hr tablet 1 (one) time each day at the same time Active digoxin (Lanoxin) 125 MCG tablet Active atorvastatin (Lipitor) 40 MG tablet 1 (one) time each day at the same time Active omeprazole OTC (PriLOSEC OTC) 20 MG EC tablet 1 (one) time each day at the same time Active tamsulosin (Flomax) 0.4 MG 24 hr capsule Take 0.4 mg by mouth Daily Active dapagliflozin (Farxiga) 5 MG Take by mouth A ctive leuprolide, 1-month, (Lupron Depot) 7.5 MG injection Active furosemide (Lasix) 40 MG tablet Take 40 mg by mouth in the morning. 5 026 Active NovoLOG MIX 70/30 FLEXPEN (70-30) 100 UNIT/ML injection INJECT 38 UNITS SUBCUTANEOUSLY (UNDER THE SKIN) WITH BREAKFAST then INJECT 38 UNITS SUBCUTANEOUSLY (UNDER THE SKIN) WITH lunch, INJECT 38 UNITS WITH dinner 5 Active tiZANidine (Zanaflex) 2 MG capsule TAKE 1 CAPSULE BY MOUTH AT BEDTIME NEEDED 5 Active traMADol (Ultram) 50 MG tablet TAKE 1/2 (ONE-HALF) TO 1 (ONE) TABLET BY MOUTH 1-2 times DAILY NEEDED FOR PAIN 5 Active Active Problems Problem Noted Date Diagnosed Date Cholesteatoma 07/14/2024 Constipation 07/14/2024 BMI 26.0-26.9,adult 12/24/2023 Chronic otitis externa 10/27/2019 Acquired hypothyroidism 10/07/2019 Atherosclerotic heart diseas e of [place] coronary artery without angina pectoris 10/09/2016 Chronic obstructive pulmonary disease 10/08/2016 Encounters Date Type Department Care Team Description 07/14/2024 10:00 AM EDT Office Visit [facility] [address] [facility] [address] [place] [address] Latoya Dhillon MD Right ear impacted cerumen (Primary Dx); Foreign body of left ear, initial encounter; Keratosis obturans of external ear canal, left 07/14/2024 Bamboo flowsheet [facility] [address] [facility] [address] [place] [address] Latoya Dhillon MD 07/14/2024 Travel from Last 3 Months Family History Medical History Relation Name Comments Diabetes Father Suicidality Maternal Grandfather Cancer Maternal Grandmother Diabetes Maternal Grandmother Heart disease Mother Hypertension Mother Stroke Mother Relation Name Status Comments Father Maternal Grandfather Maternal Grandmother Mother Social History Tobacco Use Types Packs/Day Years Used Date Smoking Tobacco: Never Smokeless Tobacco: Never Tobacco Cessation:Counseling Given: Not Answered Alcohol Use Standard Drinks/Week Comments Yes 0 (1 standard drink = 0.6 oz pure alcohol) caffeine intake: 1-2 cups per day Sex and Gender Information Value Date Recorded Sex Assigned at Not on file Legal Sex Male 6:38 PM EDT Gender Identity Not on file Sexual Orientation Not on file Last Filed Vital Signs Vital Sign Reading Time Taken Comments Blood Pressure 90/63 07/14/2024 9:40 AM EDT Pulse 61 07/14/2024 9:40 AM EDT Temperature - - Respiratory Rate - - Oxygen Saturation - - Inhaled Oxygen Concentration - - Weight 78.9 kg (174 lb) 07/14/2024 9:40 AM EDT Height 172.7 cm (5' 8 ) 07/14/2024 9:40 AM EDT Body Mass Index 26.46 07/14/2024 9:40 AM EDT Plan of Treatment Upcoming Encounters Date Type Department Care Team (Late st Contact Info) Description 01/12/2025 9:40 AM EDT Office Visit [facility] [address] [facility] [address] [place] [phone] Latoya Dhillon MD 112 [facility] [address] [place] [address] Health Maintenance Due Date Last Done Comments Influenza Vaccine (#1) 2024 Pneumococcal Vaccine: 65+ Years Completed 01/27/2017, 11/07/2014, 01/29/2011, Additional history exists Insurance MEDICARE [facility] Care Teams Digital Ad Trafficker Relationship Specialty Start Date End Date Yariel Patel MD [address] [place] [address] PCP - General Family Medicine 07/08/24
--- OUTSIDE RECORDS SUMMARY | 2024-10-03 11:02 | XMS_ITS | Encounter Summary ---
Author Organization [facility] Address [address] [place] [address] Care Team Providers Care Software Sales Representative Name Role Phone Yariel Patle MD Primary Care Provider [phone] Encounter Details Date Type Department Care Team (Late Contact Info) Description 01/19/2024 External Result Encounter [facility] Unsolicited Piyush Heard PA [address] [place] [address] Social History Tobacco Use Types [...] EDT Office Visit [facility] [address] [facility] [address] [place] [address] Latoya Dhillon MD 112 [facility] [address] [place] [address] documented as of this encounter Procedures Procedure Name Priority Date/Time Associated Diagnosis Comments XR LUMBAR SPINE 6+ VIEWS INCLUDING OBLIQUE FLEXION EXTENSION 01/19/2024 3:25 PM EDT documented in this encounter Results * XR lumbar spine 6+ views including oblique flexion extension (01/19/2024 3:25 PM EDT) Anatomical Region Laterality Modality Spine, L-spine Radiographic Alisha ging 01/19/2024 3:25 PM EDT Impressions 01/19/2024 3:32 PM EDT Extensive lower lumbar degeneration. No hypermobility. Scoliosis. Impression dictated by: Tino Rain M.D.01/19/2024 3:29 PM Dictation Location: [facility] Transcribed By: PWS 01/19/24 1529 Dictated By: Tino Rain DO 01/19/24 1525 Signed By: <Electronically signed by Tino Rain DO in OV> 01/19/24 1529 Narrative 01/19/2024 3:32 PM EDT [facility] [place] [address] XRay Report Signed Patient: Alec Gunderson MR#: [id number] : 1935 Acct:[id number] Age/Sex: 88 / M ADM Date: 01/19/24 [facility]: Type: [facility] Attending Dr: Piyush Heard PA-C Copies to: Piyush Heard PA-C Ordering Provider: Piyush Heard PA-C Date of Service: 01/19/24 XR/XR lumbar spine 6V w bending: PAIN 7 views Lumbar Spine HISTORY: Low back pain and bilateral groin pain for 6 months COMPARISON: None POSTSURGICAL CHANGES: None BONY ALIGNMENT: Moderate scoliosis. Mild straightening of lumbar lordosis. HYPERMOBILITY:No hypermobility. LISTHESIS:Mild degenerative listhesis FRACTURE: None DEGENERATIVE CHANGES: Extensive L4-5 and L5-S1 spondylosis. Extensive lower lumbar facet degeneration SOFT TISSUES: Atherosclerosis BONY MINERALIZATION:Adequate XR/XR lumbar spine 6V w bending Procedure Note Radiology, Radiologist, - 01/19/2024 [facility] [place] [address] XRay Report Signed Patient: Alec Gunderson WMR#: [id number] : 1935cct:[id number] Age/Sex: 88 / MADM Date: 01/19/24 [facility] Room:Type: [facility] Attending Dr: Piyush Heard PA-C Copies to: Piyush Heard PA-C Ordering Provider: Piyush Heard PA-C Date of Service: 01/19/24 XR/XR lumbar spine 6V w bending: PAIN 7 views Lumbar Spine HISTORY: Low back pain and bilateral groin pain for 6 months COMPARISON: None POSTSURGICAL CHANGES: None BONY ALIGNMENT: Moderate scoliosis. Mild straightening of lumbarlordosis. HYPERMOBILITY:No hypermobility. LISTHESIS:Mild degenerative listhesis FRACTURE: None DEGENERATIVE CHANGES: Extensive L4-5 and L5-S1 spondylosis. Extensivelower lumbar facet degeneration SOFT TISSUES: Atherosclerosis BONY MINERALIZATION:Adequate XR/XR lumbar spine 6V w bending IMPRESSION: Extensive lower lumbar degeneration. No hypermobility. Scoliosis. Impression dictated by: Tino Rain M.D.01/19/2024 3:29 PM Dictation Location: [place] [address] Transcribed By: [facility] 01/19/24 1529 Dictated By: Tino Rain DO 01/19/24 1525 Signed By: <Electronically signed by Tino Rain DO in OV> 01/19/24 1529 us Piyush SMITH IMG XR PROCEDURES Final Resul t documented in this encounter Visit Diagnoses Not on filedocumented in this encounter Care Teams Software Sales Representative Relationship Specialty Start Date End Date Yariel Patel MD [address] [facility], [place] [address] PCP - General Family Medicine 07/08/24 documented as of this encounter
--- OUTSIDE RECORDS SUMMARY | 2024-10-03 11:03 | XMS_ITS | Clinical Summary ---
Author Organization [facility] Address [address] [place], [place] [id number] Care Team Providers Care Tongue Trimmer Name Role Phone Yariel Patel DO Primary Care Provider Deanna Gabriel MD, PhD Unavailable Wilder Mackey MD Unavailable [phone] Allergies Active Allergy Reactions Criticality Noted Date Comments Penicillins Hives 04/07/2009 Medications 0.9% NaCl NURSING USE ONLY: USED FOR IMPLANTED VASCULAR ACCESS DEVICE (IVAD) ACCESS. AMBULATORY/OUTPATI ENT: PLEASE REORDER UPON HOSPITAL DISCHARGE May access implanted vascular access device (IVAD) as needed for treatment. Flush IVAD with 10-20 mL NS every 4 weeks and PRN when IVAD not in use. 1 Syringe 100 10/28/19 14 Active heparin 100 unit/mL syrg NURSING USE ONLY: USE FOR IMPLANTED VASCULAR ACCESS DEVICE (IVAD) FLUSH. AMBULATORY/OUTPATI ENT: PLEASE REORDER UPON HOSPITAL DISCHARGE May access implanted vascular access device (IVAD) as needed for treatment. Before de-accessing port, flush with 10-20ml normal saline and follow with 5 mL heparin (100 units/mL) (if no heparin allergy). De-access port on treatment completion. 1 Syringe 100 10/28/19 14 Active Nut.Tx.Gluc.Into l,Lac-Free,Soy (GLUCERNA SNACK SHAKE) liqdIndications: Nutritional deficiency,Type 2 diabetes mellitus, uncontrolled Take 237 mL by mouth three times daily with meals. 90 Can 6 08/17/19 15 Active Cholecalciferol, Vitamin D3, 50 mcg (2,000 unit) cap Take 2,000 mg by mouth once daily. Active losartan (COZAAR) 50 mg tablet Take 50 mg by mouth once daily. Active fluticasone (FLONASE) 50 mcg/actuation nasal spray 1 [place] as needed. 10/01/19 17 Active XARELTO 20 mg tablet Take 20 mg by mouth once daily. 04/04/19 18 Active digoxin (LANOXIN) 125 mcg tablet Take 0.125 mg by mouth once daily. 3 10/31/19 18 Active omeprazole (PRILOSEC) 20 mg capsule omeprazole 20 mg capsule,delayed release Take 1 capsule every day by oral route. Active levothyroxine (SYNTHROID) 25 mcg tablet Take 1 tablet by mouth once daily. 12/12/19 18 Active melatonin 1 mg tablet 09/30/19 19 Active MULTIVITAMIN ORAL 09/30/19 19 Active calcium-carbonat e-vitamin D3 (OS-BESSY 500+D) 500 mg(1,250mg) -200 unit per tablet 09/30/19 19 Active Lactobac no.41-Bifidobact no.7 70 mg (3 billion cell) cap Probiotic 1 tab daily 09/30/19 19 Active triamcinolone acetonide (KENALOG) 0.1 % cream as needed. Active traMADol (ULTRAM) 50 mg tablet as needed. Active loratadine (CLARITIN) 10 mg tablet as needed. Active multivit-min/FA/ lycopen/lutein (CENTRUM SILVER MEN ORAL) Centrum Silver Men 2 QD Active magnesium oxide (MAG-OX) 400 mg (241.3 mg magnesium) tablet Take 400 mg by mouth once daily. 01/07/20 19 Active atorvastatin (LIPITOR) 40 mg tablet Take 40 mg by mouth daily at bedtime. 09/01/19 21 Active citalopram hydrobromide (CELEXA) 10 mg tablet Take 10 mg by mouth once daily. 04/11/19 23 Active Insulin [employer], Disposable, (UNIFINE PENTIPS PLUS) 32 gauge x 5/32 Use with insulin pens 3 times daily Dx: E11.65 300 Each 3 01/04/20 23 Active Blood-Glucose Meter (TRUE METRIX GLUCOSE METER) Check glucose 3 times daily Dx: E11.65 1 Each 07/16/19 24 Active Lancets Check glucose 3 times daily Dx: E11.65 300 Each 3 07/16/19 24 Active tamsulosin (FLOMAX) 0.4 mgIndications:Pr ostate [place] (HCC) Take 1 capsule by mouth once daily. 90 capsule 3 12/03/19 24 025 Active NOVOLOG MIX 70-30 100 unit/mL (70-30) penIndications:T ype 2 diabetes mellitus with stage 3b chronic kidney disease, with long-term current use of insulin ([facility]) INJECT 38 UNITS WITH BREAKFAST, 38 WITH LUNCH, 38 UNITS WITH DINNER SUBCUTANEOUSLY 45 mL 11 05/10/19 25 Active FARXIGA 10 mg tablet TAKE 1 TABLET BY MOUTH DAILY WITH BREAKFAST 90 tablet 06/24/19 25 Active furosemide (LASIX) 40 mg tablet Take 40 mg by mouth once daily. 04/21/19 25 026 Active FLUoxetine (PROZAC) 20 mg capsule Take 20 mg by mouth once daily. Active metoprolol succinate ER (TOPROL XL) 25 mg 24 hr tablet Take 25 mg by mouth once daily. Active blood sugar diagnostic (TRUE METRIX GLUCOSE TEST STRIP) test strip Check glucose 4 times daily Dx: E11.65 400 strip 3 07/09/19 25 Active Hospital, Clinic, or Other Facility Administered Medication Ordered Dose Route Frequency Start Date End Date Status fluorescein-benoxinate 0.3-0.4 % 1 drop (FLURESS)Indications:Blur ry vision,Epiretinal membrane, bilateral,Type 2 diabetes mellitus without complication, with long-term current use of insulin ([facility]),Pseudophakia of both eyes 1 drop OU DIRECTED 09/16/2024 09/16/2024 Ended proparacaine 0.5 % 1 drop (ALCAINE)Indications:Blur ry vision,Epiretinal membrane, bilateral,Type 2 diabetes mellitus without complication, with long-term current use of insulin ([facility]),Pseudophakia of both eyes 1 drop OU DIRECTED 09/16/2024 09/16/2024 Ended tropicamide 1 % 1 drop (MYDRIACYL)Indications:Bl urry vision,Epiretinal membrane, bilateral,Type 2 diabetes mellitus without complication, with long-term current use of insulin ([facility]),Pseudophakia of both eyes 1 drop OU DIRECTED 09/16/2024 09/16/2024 Ended PHENYLephrine 2.5 % 1 drop (AK-DILATE, STEFANY-SYNEPHRINE)Indication s:Blurry vision,Epiretinal membrane, bilateral,Type 2 diabetes mellitus without complication, with long-term current use of insulin (HCC),Pseudophakia of both eyes 1 drop OU DIRECTED 09/16/2024 09/16/2024 Ended Active Problems Problem Noted Date Diagnosed Date Impotence 10/27/2019 Hyperlipidemia 10/27/2019 Gastroesophageal reflux disease 10/27/2019 Chronic renal insufficiency, stage III (moderate ) 10/27/2019 Chronic otitis externa 10/27/2019 Rhinitis 10/27/2019 Acquired hypothyroidism 10/07/2019 Lumbosacral radiculopathy 10/07/2018 Degeneration of lumbosacral intervertebral disc 10/07/2018 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 08/05/2017 custodial current use of antithrombotics/antipla telets 06/18/2017 Cervicalgia 06/18/2017 Low back pain 06/18/2017 Epiretinal membrane (ERM) of both eyes 7 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 Pseudophakia of both eyes 11/28/2016 Type 2 diabetes mellitus without retinopathy 09/2016 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 10/09/2016 Chronic [...] lymph nodes 07/10/2011 Hypertension 11/07/2009 Dyslipidemia 11/07/2009 Resolved Problems Problem Noted Date Diagnosed Date Resolved Date 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 09/27/2014 11/28/2016 Lens replaced by other means - Both Eyes 09/27/2014 11/28/2016 Type 2 diabetes mellitus, uncontrolled 11/07/2009 05/28/2016 Encounters Date Type Department Care Team Description 09/27/2024 1:00 PM EDT Office Visit Endocrinology [address] [id number] Paty Stoddard APRN.HVAC SERVICE MANAGER Type 2 diabetes mellitus with stage 3b chronic kidney disease, with long-term current use of insulin (HCC) (Primary Dx); Essential hypertension; Dyslipidemia; Acquired hypothyroidism 09/16/2024 10:00 AM EDT Office Visit [facility] Ophthalmology [address] [id number] Callum Gutierrez MD Diagnostics, Eye Tech And Epiretinal membrane, bilateral (Primary Dx); Type 2 diabetes mellitus without complication, with long-term current use of insulin (HCC); Pseudophakia of both eyes; Blurry vision; Fuchs' corneal dystrophy of both eyes 07/18/2024 Refill Endocrinology [address] [place] [address] Paty Stoddard APRN.HVAC SERVICE MANAGER Refill Request 07/08/2024 1:30 PM EDT Office Visit Endocrinology [address] [place] [address] Paty Stoddard APRN.HVAC SERVICE MANAGER Type 2 diabetes mellitus with stage 3b chronic kidney disease, with long-term current use of insulin (HCC) (Primary Dx); Essential hypertension; Dyslipidemia; Acquired hypothyroidism 07/08/2024 Travel from Last 3 Months Immunizations Immunization Administration Dates Next Due COVID-19 original vaccine, a ge 12+ yr, monovalent ([employer] - PURPLE TOP) 06/28/2020,06/07/2020,05/22/2020 diphtheria tetanus pertussis (DTP) vaccine 12/09,11/22/2020 pneumococcal conjugate (PCV1 3) vaccine, 13 valent (PREVNAR 13) 01/27/2017,11/07/2014 pneumococcal polysaccharide (PPV23) vaccine, 23 valent (PNEUMOVAX 23) 01/29/2011,03/24/2010,03/24/2006 tetanus diphtheria pertussis (Tdap) vaccine, age 7+ yr (ADACEL, BOOSTRIX) 12/09/2020 Family History Medical History Relation Comments Diabetes Father No Ocular Disease Father Cancer Maternal Grandmother Diabetes Maternal Grandmother No Ocular Disease Mother Relation Status Comments Father Maternal Grandmother Mother Social History Tobacco Use Types Packs/Day Years Used Date Smoking Tobacco: Never Passive Smoke Exposure: Past Smokeless Tobacco: Never Tobacco Cessation:Counseling Given: Not Answered Alcohol Use Standard Drinks/Week Comments No 0 (1 standard drink = 0.6 oz pur e alcohol) PHQ-2 Answer Date Recorded PHQ-2 score 2 04/19/2024 Area Deprivation Index Answer Date Sandro rded National Score (1-100), lower number is lower ri sk 76 08/09/2022 State Score (1-10), lower number is lower risk 6 08/09/2022 Data from: https://www.neighborhoodatlas.medicine.[facility].edu/. Last address used for calculation [address] 08/09/2022 Sex and Gender Information Value Date Recorded Sex Assigned at Not on file Legal Sex Male 9:30 AM EST Gender Identity Not on file Sexual Orientation Not on file Last Filed Vital Signs Vital Sign Reading Time Taken Comments Blood Pressure 121/57 09/27/2024 1:03 PM EDT Pulse 57 09/27/2024 1:03 PM EDT Temperature 36.3 C (97.3 F) 06/29/2024 10:06 AM EDT Respiratory Rate 18 06/29/2024 10:0 6 AM EDT Oxygen Saturation 98% 09/27/2024 1:03 PM EDT Inhaled Oxygen Concentration - - Weight 81.6 kg (179 lb 14.3 oz) 09/27/2024 1:03 PM EDT Height 172.7 cm (5' 7.99 ) 07/08/2024 1:30 PM ED T Body Mass Index 27.36 07/08/2024 1:30 PM EDT Plan of Treatment Upcoming Encounters Date Type Department Care Team (Late st Contact Info) Description 10/06/2024 2:00 PM EDT Office Visit [facility] [place] [address] 3 month follow up with lab 10/06/2024 2:20 PM EDT Visit (SP) Office Hematology/Oncology [address] [place] [address] Esteban Martinez MD [address] [place] [address] 3 month follow up with lab 10/12/2024 2:00 PM EDT Office Visit [facility] Ophthalmology [address] [place] [address] Lior Montanez MD [address] [place], [place] [phone] Diagnostics, Eye Tech And [address] [address] [address] Montanez [facility]. 01/28/2025 10:30 AM EST Office Visit Endocrinology [address] [place] [address] Paty Stoddard APRN.HVAC SERVICE MANAGER [address] [place] [address] 4 month follow up DM 09/22/2025 10:15 AM EDT Office Visit [facility] Ophthalmology [address] [place] [address] Callum Gutierrez MD [address] [place], [place] [id number] Diagnostics, [facility] Tech [facility] [address] [address] *YEARLY, DFE/OCT Health Maintenance Due Date Last Done Comments Anxiety Screening 1953 Depression Screening 1953 Shingrix Vaccine (1 of 2) 11/21/1954 Medicare Annual Wellness Visit 10/22/2001 RSV Vaccine (1 - 1-dose 75+ series) 11/21/2011 Diabetic Foot Exam 06/16/2013 06/16/2012 Covid-19 Vaccine ( - 2023-2 5 season) 2023 06/28/2020, 06/07/2020, 05/22/2020 Advance Directive Discussion 03/24/2024 LDL Cholesterol 05/12/2024 05/12/2023, 03/24, 04/02/2021, Additional history exists Influenza Vaccine (#1) 2024 Urine Albumin:Creatinine Ratio 11/30/2024 0 12/01/2023, 05/12/2023, 04/10/2022, Additional history exists HbA1C 03/30/2025 09/27/2024, 06/22, 03/02/2024, Additional history exists Dilated Retinal Exam 09/16/2025 09/16/2024, 09/11/2023, 05/09/2022, Additional history exists DTaP,Tdap,Td Vaccine (4 - Td or Tdap) 12/09/2030 12/09/2020, 12/09/2020, 11/22/2020 Pneumococcal Vaccine: 50+ Completed 2016, 11/07/2014, 01/29/2011, Additional history exists Procedures Procedure Name Priority Date/Time Associated Diagnosis Comments HEMOGLOBIN A1C (POC) Routine 09/27/2024 1:11 PM EDT OCT MACULA CIRRUS OU (BOTH EYES) Routine 09/16/2024 10:53 AM EDT Blurry vision Epiretinal membrane, bilateral Type 2 diabetes mellitus without complication, with long-term current use of insulin (HCC) Pseudophakia of both eyes GLOOKO ON DEMAND 07/08/2024 1:37 PM EDT HEMOGLOBIN A1C (POC) Routine 07/08/2024 1:35 PM EDT ALBUMIN/CREATININE RATIO, URINE Routine 12/01/2023 2:12 PM EDT Type 2 diabetes mellitus with stage 3b chronic kidney disease, with long-term current use of insulin (HCC) LIPID PANEL, FASTING Routine 05/12/2023 11:05 AM EST Dyslipidemia from Last 3 Months or Most Recently Relevant to Health Maintenance Results * (ABNORMAL) HEMOGLOBIN A1C (POC) (09/27/2024 1:11 PM EDT) Only the most recent of2 resultswithin the time period is included. Pathologist [facility] Hemoglobin A1C (POCT) 7.7(A) 4.3 - 5.6 % [facility] Comment: [phone] Location:[facility], [address] [place] [address], [id number] Point of care (POC) Hemoglobin A1c (HGBA1C) [...] specific diabetes management situations: The POC device toy assembler provides a normal range of 4.2% to 6.5% for the HGBA1C POC test. However, the [place] Diabetes Association guidelines indicate that patients with [...] lifespan. 09/27/2024 1:11 PM EDT Paty Stoddard APRN.CANDACE POC TESTING Final Result [facility] * OCT MACULA CIRRUS OU (BOTH EYES) (09/16/2024 10:53 AM EDT) Anatomical Region Laterality Modality Other Narrative 09/16/2024 11:37 AM EDT Date of Procedure 09/16/2024. Curtain Inspector Information Tile Setter Apprentice: PD. OCT Macula Interpretation Right Eye Abnormal foveal contour. Findings include Epiretinal membrane; Negative for Intraretinal fluid, Cystoid macular edema, Subretinal fluid. Left Eye Abnormal foveal contour. Findings include Epiretinal membrane; Negative for Intraretinal fluid, Cystoid macular edema, Subretinal fluid. Interval Change Right Eye Stable. Left Eye Stable. Callum Gutierrez MD OPHTHALMOLOGY Final Result * DAVID ON DEMAND (07/08/2024 1:37 PM EDT) 07/08/2024 1:37 PM EDT Narrative 07/08/2024 1:37 PM EDT Ordered by an unspecified provider. [facility] Provider POC TESTING Final Result * (ABNORMAL) ALBUMIN/CREAT RATIO RND UR (12/01/2023 2:12 PM EDT) Creatinine, Ur Random (UCRR) 68.0 20.0 - 300.0 mg/dL 12/02/2023 1:05 PM EDT [facility] Albumin, Urine Random 129.3 mg/L 12/02/2023 1:05 PM EDT [facility] Albumin/Creat Ratio 190(H) <30 mg/g 12/02/2023 1:05 PM EDT [facility] Comment: Adult Male and Female Nephrotic Criteria: <30 mg/g is considered normal to mildly increased 30-300 mg/g is considered moderately increased >300 mg/g is considered severely increased KDIGO. (2013). KDIGO 2012 Clinical Practice Guideline for the Evaluation and Management of Chronic Kidney Disease. Official Journal of the International Society of Nephrology, 3(1), 1-150. Urine Random URINE SPECIMEN / Unknown Non Blood / Unknown 12/01/2023 2:12 PM EDT 12/01/2023 2:18 PM EDT Paty Stoddard APRN.CNP LABORATORY Final Result [facility] [address] * (ABNORMAL) LIPID PANEL BASIC (05/12/2023 11:05 AM EST) Cholesterol, Total 139 <200 mg/dL 05/12/2023 7:16 PM EST [facility] Comment: <200 mg/dL, Desirable 200-239 mg/dL, Borderline high >239 mg/dL, High Triglyceride 272(H) <150 mg/dL 05/12/2023 7:16 PM [facility] Comment: <150 mg/dL, Normal 150-199 mg/dL, Borderline high 200-499 mg/dL, High >499 mg/dL, Very high HDL Cholesterol 30(L) >39 mg/dL 7:16 PM [facility] Comment: 40-59 mg/dL, Acceptable >59 mg/dL, High: Negative risk factor for coronary heart disease <40 mg/dL, Low: Positive risk factor for coronary heart disease Non HDL Cholesterol 109 <130 mg/dL 05/12/2023 7:16 PM [facility] Comment: <130 mg/dL, Optimal 130-159 mg/dL, Near optimal/above optimal 160-189 mg/dL, Borderline high 190-219 mg/dL, High >219 mg/dL, Very high Secondary prevention optimal non HDL Cholesterol levels are recommended to be <100 mg/dL Fasting Time 12 hrs 05/12/2023 7:16 PM [facility] VLDL Cholesterol 54(H) <30 mg/dL 05/12/19 24 7:16 PM [facility] TC:HDL Ratio 4.63 <5.10 05/12/2023 7:16 PM [facility] LDL Cholesterol, Calculated 55 <100 mg/dL 05/12/2023 7:16 PM [facility] Comment: <100 mg/dL, Optimal 100-129 mg/dL, Near optimal/above optimal 130-159 mg/dL, Borderline high 160-189 mg/dL, High >189 mg/dL, Very high Secondary prevention optimal LDL Cholesterol levels are recommended to be < 70 mg/dL LDL:HDL Ratio 1.83 <2.54 05/12/2023 7:16 PM [facility] Comment: Reference: 1. National Cholesterol Education Program ATP III Guideline At-A-Glance Quick Desk Reference: National [facility] [place]. National Institutes of Health. 2001: NIH Publication No. 01-3305. 2. An International Atherosclerosis Society position paper: global recommendations for the management of dyslipidemia: executive summary, Atherosclerosis. 2014: 232(2):410-413. Blood BLOOD SPECIMEN / Unknown Port - Continuous Access Dev. / Unknown 05/12/2023 11:05 AM EST 05/12/2023 11:14 AM EST Paty Stoddard PROJECT ADMINISTRATIVE ASSISTANT.HVAC SERVICE MANAGER LABORATORY Final Result [facility] [address] [facility] [address] [place] [address], [facility] [address] [place] [address] from Last 3 Months or Most Recently Relevant to Health Maintenance Insurance MEDICARE [facility] Advance Directives Documents on File Type Date Recorded Patient Instructional Support Technician Expl anation Advance Directive(s) 04/26/2009 6:15 AM Care Teams Tongue Trimmer Relationship Specialty Start Date End Date Yariel Patel DO [address] [place] [place] [id number] PCP - General 07/04/00 Deanna Gabriel MD, PhD [address] [place] [address] Physician Endocrinology 02/09/18 Wilder Mackey MD [address] [place] [address] Primary Staff Physician Cardiology 06/09/18
--- OUTSIDE RECORDS SUMMARY | 2024-10-03 11:04 | XMS_ITS | CCD ---
Author Organization [facility] Inform ion [facility] Care Team Providers Care Anatomy Teacher Name Role Phone SEAN FRANKLIN Attending Unavailable FURLONG, YARIEL Primary Care Unavailable SEAN FRANKLIN Attending Unavailable FURLONG, YARIEL Primary Care Unavailable SEAN FRANKLIN Attending Unavailable FURLONG, YARIEL Primary Care Unavailable SEAN FRANKLIN Attending Unavailable FURLONG, YARIEL Primary Care Unavailable Furlong, Yariel G Unavailable Unavailable Unavailable Furlong, Yariel Molly Primary Care Provider Nery MARTINEZ, PhD, Deanna Purcell Unavailable Wilder Mackey MD Unavailable Furlong DO Yariel Primary Care Provider MD Sean Franklin Attending Provider Furlong DO, Yariel Molly Primary Care Provider DO Atif Ta Emergency Provider LEAH Bentley Attending Provider [phone] Furlong DO, Yariel Molly Primary Care Provider Nery MARTINEZ, PhD, Deanna Purcell Unavailable Wilder Mackey MD Unavailable Furlong DO, Yariel Molly Primary Care Provider Furlong DO, Yariel Molly Primary Care Provider Nery MARTINEZ, PhD, Deanna Purcell Unavailable Wilder Mackey MD Unavailable DO Yariel Villanueva Primary Care Provider MD Sean Franklin Attending Provider DO Bennie Renae Emergency Provider MD Kevin Phillips Admit Provider MD Kevin Phillips Attending Provider MD Eugene Burger Other Provider MD Kenny Pittman Emergency Provider DO Mikal Terry Admit Provider [phone] DO Mikal Terry Attending Provider MD Aline Pierre Attending Provider [phone] Angeles Durán Other Provider Unavailable DO Tamy Eugene Other Provider MD Magdaleno Vazquez Other Provider [phone] DO Yan Peralta Other Provider LEWIS Jerry- Katy Other Provider DO Simeon Godinez Other Provider JOSE Dumont Other Provider [phone] ALEXANDRA Leonard Other Provider DR CHEPE BENTLEY Admitting Unavailable MC, DR CHEPE Jolly Attending Unavailable KAY, DR YARIEL Washington Primary Care Unavailable JOHANN SOOD Consulting Unavailable MC, DR CHEPE Jolly Consulting Unavailable MC, DR CHEPE Jolly Admitting Unavailable MC, DR CHEPE Jolly Attending Unavailable KAY, DR YARIEL Washington Primary Care Unavailable HAYLIE, DR MAGDALENO Jolly Consulting Unavailable MC, DR CHEPE Jolly Consulting Unavailable Kay, Dr. Yariel Randolph Primary Care Unava ilable Kay, Dr. Yariel Randolph Primary Care Unava ilable Kay, Dr. Yariel Randolph Primary Care Unava ilable Noemi ALAMO, Dr. Sean Gonzalez Attending Unavailable Noemi ALAMO, Dr. Sean Gonzalez Referring Unavailable Kay, Dr. Yariel Randolph Primary Care Unava ilable Noemi ALAMO, Dr. Sean Gonzalez Attending Unavailable Noemi ALAMO, Dr. Sean Gonzalez Referring Unavailable Kay, Dr. Yariel Randolph Primary Care Unava ilable Kay, DO Saldivar Primary Care Provider MD Sean Franklin Attending Provider Wilder Mackey MD Unavailable Janieng, DO Yariel Primary Care Provider MD Sean Franklin Attending Provider Kay MIN, Yariel Randolhp Primary Care Provider Janieng, DO Saldivar Primary Care Provider JONO Pittman Attending Provider Yariel Villanueva DO Primary Care Provider Yariel Villanueva MD Primary Care Provider DANIELLE Heard Attending Provider Janieng, DO Yariel Primary Care Provider JONO Pittman Attending Provider DANIELLE Heard Attending Provider Kay DO, Yariel Primary Care Provider Khoa Pittman DPM Attending Provider [phone] Amanda Heard PA-C Attending Provider Yariel Villanueva DO G Primary Care Provider Kay MIN, Yariel Primary Care Provider Lila Ervin MD Attending Provider David Jackson MD Attending Provider Yariel Villanueva DO Primary Care Provider David Jackson MD Attending Provider Yariel Villanueva MD Primary Care Provider CATHERINE HOOVER Attending Unavailable KHOA PITTMAN Attending Unavailable CATHERINE HOOVER Attending Unavailable AMANDA HEARD Attending Unavailable ELÍAS FRANZ Attending Unavailable ARCADIO, LILA Referring Unavailable BLACKSASHLEY, ELÍAS Dhaliwal Attending Unavailable ARCADIO, LILA Referring Unavailable Furlong, Yariel Primary Care Unavailable Sean Franklin Admitting Unavail able Sean Franklin Attending Unavail able Arcadio, Lila S Admitting Unavailable Arcadio, Lila S Attending Unavailable Furlong, Yariel Primary Care Unavailable David Jackson Admitting Unavailable TraboulssiJuanf Attending Unavailable Furlong, Yariel Primary Care Unavailable Trabouljosephi, Juanf Admitting Unavailable TraboulDavid dhaliwal Attending Unavailable Traboulssi, Moneetahaf Referring Unavailable Furlong, Yariel Primary Care Unavailable Furlong, Yariel Primary Care Unavailable Khoa Pittman Admitting Unavailable Khoa Pittman Attending Unavailable Amanda Heard Admitting Unavailable Amanda Heard Attending Unavailable Furlong, Yariel Primary Care Unavailable Furlong DO, Yariel Primary Care Provider David Jackson MD Attending Provider David Jackson MD Referring Provider [facility] DO, Yariel Molly Primary Care Provider ARNOLD HANDLEY Attending Unavailable FURLONG, YARIEL MOLLY Primary Care Unavailab le FURLONG, YARIEL MOLLY Primary Care Unavailab ARNOLD Martin Attending Unavailable FURLONG, YARIEL MOLLY Primary Care Unavailab le ABHYANKAR, SHAHEEN Referring Unavailable FURLONG, YARIEL MOLLY Primary Care Unavailab le ABHYANKAR, SHAHEEN Referring Unavailable FURLONG, YARIEL MOLLY Primary Care Unavailab le ABHYANKAR, SHAHEEN Referring Unavailable BRITTNEY VASQUEZ Attending Unavailable FURLONG, YARIEL MOLLY Primary Care Unavailab le ABHYANKAR, SHAHEEN Referring Unavailable FURLONG, YARIEL MOLLY Primary Care Unavailab ARNOLD Martin Attending Unavailable ABHYANKAR, SHAHEEN Referring Unavailable FURLONG, YARIEL MOLLY Primary Care Unavailab le ABHYANKAR, SHAHEEN Referring Unavailable FURLONG, YARIEL MOLLY Primary Care Unavailab le ABHYANKAR, SHAHEEN Attending Unavailable ABHYANKAR, SHAHEEN Referring Unavailable FURLONG, YARIEL MOLLY Primary Care Unavailab le LORENA FREY Attending Unavailable FURLONG, YARIEL MOLLY Primary Care Unavailab le ABHYANKAR, SHAHEEN Referring Unavailable SHANTE, LORENA Referring Unavailable FURLONG, YARIEL MOLLY Primary Care Unavailab ARNOLD Martin Attending Unavailable FURNG, YARIEL MOLLY Primary Care Unavailab ROLAND Scott Attending Unavailable FURLONG, YARIEL MOLLY Primary Care Unavailab le TRABOULSSIJUANF Attending Unavailable SEAN FRANKLIN Referring Unavailable FURLONG, YARIEL MOLLY [facility] Care Unavailab le TRABOULSSI, JUANF Attending Unavailable TRABOULJOSEPHIJUANF Referring Unavailable FURNG, YARIEL MOLLY Primary Care Unavailab le Allergies Allergy Classification Reported Allergen(s) Allergy Type Date of Onset Reaction(s) Facility Penicillins (antibiotic) (1 source) Penicillins Drug Allergy 0 [facility] (20 sources) Penicillins; Translations: [Penicillins] Allergy to drug (finding) 0 [facility] (2 sources) Penicillins Drug Allergy 0 [facility] (20 sources) Penicillins Drug Allergy 0 Hives, Shortness Of Breath [facility] (1 source) Penicillins Drug allergy (disorder) 4 [facility] (17 sources) Penicillin G Drug Allergy 3 [facility] (9 sources) Penicillins Drug Allergy 0 [facility] (1 source) Penicillins Drug allergy (disorder) 5 [facility] Medications Current Medications Medication Drug Class(es) Dates Sig (Normalized) Sig (Original) 0.9% NaCl (20 sources) Start: 10-27-2013 0.9% NaCl NURSING USE ONLY: USED FOR IMPLANTED VASCULAR ACCESS DEVICE (IVAD) ACCESS. AMBULATORY/OUTPATIE NT: PLEASE REORDER UPON HOSPITAL DISCHARGE May access implanted vascular access device (IVAD) as needed for treatment. Flush IVAD with 10-20 mL NS every 4 weeks and PRN when IVAD not in use. 1 Syringe 100 10/27/2013 Active Comment on above: NURSING USE ONLY: USED FOR IMPLANTED VASCULAR ACCESS DEVICE (IVAD) ACCESS. AMBULATORY/OUTPATIENT: PLEASE REORDER UPON HOSPITAL DISCHARGE May access implanted vascular access device (IVAD) as needed for treatment. Flush IVAD with 10-20 mL NS every 4 weeks and PRN when IVAD not in use. acetaminophen 500 mg oral tablet (20 sources) Start: 03-21-2022 take 2 tablets by mouth every six hours as needed for pain Acetaminophen 500 mg Tablet Active 1000 MG PO Q6H as needed for Pain March 21, 2022 1:00am Start: 03-21-2022 take 1000 mg by mout h every six hours Acetaminophen Active 1000 MG PO Q6H March 21, 2022 12:00am Start: 06-24-2017 End: 08-29-2017 Acetaminophen (Mapap Extra S trength) 500 mg Tablet Discontinued 1000 MG PO Q6H as needed for Mild Pain 0 June 24, 2017 12:00am August 29, 2017 1:07pm atorvastatin 40 mg oral tablet (20 sources) HMG-CoA Reductase Inhibitor Start: 08-09-2024 End: 08-09-2025 take 1 tablet by mouth once daily at bedtime atorvastatin (Lipitor) 40 mg tablet Indications: Hyperlipidemia, unspecified hyperlipidemia type Take 1 tablet (40 mg) by mouth once daily at bedtime. 90 tablet 3 08/09/2024 08/09/2025 Active Start: 08-31-2020 End: 07-16-2024 take 1 tablet by mouth once daily at bedtime atorvastatin (LIPITOR) 40 mg tablet Take 40 mg by mouth daily at bedtime. 08/31/2020 Active Comment on above: Take 40 mg by mouth daily at bedtime. benoxinate hydrochloride 4 mg/ml / fluorescein sodium 3 mg/ml ophthalmic solution (2 sources) Diagnostic Dye Start: 09-16-2024 End: 09-16-2024 fluorescein-benoxi rodrick 0.3-0.4 % 1 drop (FLURESS) Start: 09-16-2024 End: 09-16-2024 1 drop, BOTH EYES, DIRECT ED, Starting on Maddie 09/16/24 at 1100, Until Maddie 09/16/24 at 2259, Administer for applanation tonometry. In the event of a Fluress shortage, administer Lisa-Fluor 1 drop into both eyes as directed for applanation tonometry, OPHT CLINIC MED ORDERS Blood-Glucose Meter (TRUE ME TRIX GLUCOSE METER) (20 sources) Start: 07-16-2023 Blood-Glucose Meter (TRUE METRIX GLUCOSE METER) Check glucose 3 times daily Dx: E11.65 1 Each 07/16/2023 Active Start: 07-16-2023 Blood-Glucose Meter (TRUE METRIX GLUCOSE METER) Check glucose 3 times daily Dx: E11.65 1 Each 0 07/16/2023 Active calcium carbonate 1250 mg / cholecalciferol 600 unt oral tablet (20 sources) Vitamin D Start: 03-21-2022 take 1 tablet by mouth twice daily Calcium Carbonate-Vitamin D3 500 mg-15 mcg (600 unit) Tablet Active 1 TAB PO Twice daily March 21, 2022 1:00am Start: 09-29-2018 calcium-carbon ate-vitamin D3 (OS-BESSY 500+D) 500 mg(1,250mg) - 200 unit per tablet 09/29/2018 Active Start: 09-29-2018 calcium-carbon ate-vitamin D3 (OS-BESSY 500+D) 500 mg(1,250mg) - 200 unit per tablet Os-Bessy 500 + D3 1 tab twice a day 0 09/29/2018 Active Comment on above: Os-Bessy 500 + D3 1 tab twice a day catheter misc (7 sources) Start: 04-23-19 23 catheter misc Indications: Nocturia , Prostate cancer ([facility]) 1 Unit by miscellaneous route in the morning. Has excessive nocturia that is interrupting sleep, has prostate cancer that is being treated with lupron and is also on farxiga that increases urination. 1 each 1 04/23/2022 Active cholecalciferol 0.05 mg oral tablet (20 sources) Vitamin D Start: 08-30-19 18 take 2 tablets by mouth once daily Cholecalciferol (Vitamin D3) (Vitamin D3) 2,000 unit Tablet Active 4000 UNIT PO Daily August 29, 2017 1:08pm Start: 08-29-2017 End: 03-22-2022 take 1 tablet by mouth once daily Cholecalciferol (Vitamin D3) (Vitamin D3) 2,000 unit Tablet Discontinued 2000 UNIT PO Daily August 29, 2017 12:00am March 22, 2022 2:09pm take 1 capsule by [facility] once daily Cholecalciferol, Vitamin D3, 50 mcg (2,000 unit) cap Take 2,000 mg by mouth once daily. Active take 1 capsule by [facility] once daily Cholecalciferol, Vitamin D3, (VITAMIN D-3) 2,000 unit cap Take 2,000 mg by mouth once daily. 0 Active Comment on above: Take 2,000 mg by keiko once daily. citalopram 10 mg oral tablet (20 sources) Serotonin Reuptake Inhibitor Start: 04-05-19 End: 08-14-19 24 take 1 tablet by mouth once daily citalopram hydrobromide (CELEXA) 10 mg tablet Take 10 mg by mouth once daily. 04/11/2022 Active Comment on above: Take 1 tablet by keiko th once daily. Take 10 mg by mouth once daily. dapagliflozin 10 mg oral tablet (20 sources) Sodium-Glucose Cotransporter 2 Inhibitor Start: 07-18-19 End: 06-24-19 25 take 1 tablet by mouth once daily at breakfast FARXIGA 10 mg tablet TAKE 1 TABLET BY MOUTH DAILY WITH BREAKFAST 90 tablet 3 06/23/2024 Active Start: 04-10-2021 End: 07-17-2021 take 1 tablet by mouth once daily in the morning Farxiga 5 MG Oral Tablet TAKE 1 TABLET BY MOUTH EVERY MORNING Quantity: 0 Refills: 0 Ordered: 10-Apr-2021 DO Start : 10-Apr-2021 Active Comment on above: Take 1 tablet by keiko daily with breakfast. digoxin 0.125 mg oral tablet (20 sources) Cardiac Glycoside Start: 01-22-2021 End: 09-28-2024 take 1 tablet by mouth once daily digoxin (Lanoxin) 125 MCG tablet Indications: Sick sinus syndrome (Multi) Take 1 tablet (125 mcg) by mouth once daily. 90 tablet 3 07/12/2024 09/28/2024 Discontinued (Therapy completed) Start: 10-30-2017 take 0.125 mg by keiko th once daily digoxin (LANOXIN) 125 mcg tablet Take 0.125 mg by mouth once daily. 3 10/30/2017 Active Comment on above: Take 0.125 mg by keiko once daily. FLUoxetine 20 mg oral tablet (20 sources) Serotonin Reuptake Inhibitor Start: 02-25-2024 Fluoxetine 20 mg capsule Active MG PO February 25, 2024 1:00am Start: 02-16-2024 take 1 capsule by mo uth in the morning FLUoxetine (PROzac) 20 mg capsule TAKE 1 CAPSULE BY MOUTH IN THE MORNING 90 capsule 1 02/16/2024 Active Start: 08-27-2023 End: 09-28-2024 take 1 capsule by mouth in the morning FLUoxetine (PROzac) 20 mg capsule Take 1 capsule (20 mg total) by mouth in the morning. 90 capsule 1 08/27/2023 02/16/2024 Discontinued Start: 03-05-2023 End: 12-24-2023 take 1 capsule by mouth in the morning FLUoxetine (PROzac) 10 mg capsule Take 1 capsule (10 mg total) by mouth in the morning. 30 capsule 5 06/04/2023 08/27/2023 Discontinued (Therapy completed) furosemide 20 mg oral tablet (20 sources) Loop Diuretic Start: 07-02-2024 take 1 tablet by mouth once daily Furosemide (Lasix) 20 mg tablet Active 20 MG PO Daily July 02, 2024 12:00am Start: 04-21-2024 End: 04-21-2025 take 1 tablet by mouth once daily furosemide (Lasix) 40 mg tablet Indications: Localized edema Take 1 tablet (40 mg) by mouth once daily. 90 tablet 3 04/21/2024 09/28/2024 Discontinued (Dose adjustment) Start: 03-22-2022 End: 01-28-2024 take 1 tablet by mouth once daily as needed Furosemide (Lasix) 40 mg Tablet Discontinued 40 MG PO Daily as needed for Lower extremity swelling, abnormal weight gain,SOB March 22, 2022 1:00am January 28, 2024 3:39pm 30 mins before spironolactone heparin (20 sources) Unfractionated Heparin, Anti-coagulant Start: 10-27-2013 heparin 100 unit/mL syrg NURSING USE ONLY: USE FOR IMPLANTED VASCULAR ACCESS DEVICE (IVAD) FLUSH. AMBULATORY/OUTPATIENT: PLEASE REORDER UPON HOSPITAL DISCHARGE May access implanted vascular access device (IVAD) as needed for treatment. Before de-accessing port, flush with 10-20ml normal saline and follow with 5 mL heparin (100 units/mL) (if no heparin allergy). De-access port on treatment completion. 1 Syringe 100 10/27/2013 Active Comment on above: NURSING USE ONLY: USE FOR IMPLANTED VA SCULAR ACCESS DEVICE (IVAD) FLUSH. AMBULATORY/OUTPATIENT: PLEASE REORDER UPON HOSPITAL DISCHARGE May access implanted vascular access device (IVAD) as needed for treatment. Before de-accessing port, flush with 10-20ml normal saline and follow with 5 mL heparin (100 units/mL) (if no heparin allergy). De-access port on treatment completion. 3 ml insulin aspart protamine, human 70 unt/ml / insulin aspart, human 30 unt/ml pen injector (20 sources) Insulin Analog Start: 05-10-2024 NOVOLOG MIX 70 -30 100 unit/mL (70-30) pen Indications: Type 2 diabetes mellitus with stage 3b chronic kidney disease, with long-term current use of insulin (HCC) INJECT 38 UNITS WITH BREAKFAST, 38 WITH LUNCH, 38 UNITS WITH DINNER SUBCUTANEOUSLY 45 mL 11 05/10/2024 Active Start: 01-28-2024 Insulin Asp Pr t-Insulin Aspart (Novolog Mix 70-30flexpen U- 100) 100 unit/mL (70-30) insulin pen Active 11 UNIT SUBCUT Daily before supper January 28, 2024 3:38pm Start: 01-28-2024 Insulin Asp Pr t-Insulin Aspart (Novolog Mix 70-30flexpen U- 100) 100 unit/mL (70-30) insulin pen Active 24 UNIT SUBCUT Daily before breakfast January 28, 2024 3:38pm Start: 03-26-2022 End: 01-28-2024 Insulin Asp Prt-Insulin Aspa rt (Novolog Mix 70-30flexpen U-100) 100 unit/mL (70-30) insulin pen Discontinued 30 UNIT SUBCUT Daily before supper March 26, 2022 10:16am January 28, 2024 3:39pm 38 units before breakfast 28 units at lunchtime 34 units at dinner Start: 03-26-2022 End: 01-28-2024 Insulin Asp Prt-Insulin Aspa rt (Novolog Mix 70-30flexpen U-100) 100 unit/mL (70-30) insulin pen Discontinued 22 UNIT SUBCUT Daily before lunch March 26, 2022 10:15am January 28, 2024 3:38pm 38 units before breakfast 28 units at lunchtime 34 units at dinner Start: 03-26-2022 End: 01-28-2024 Insulin Asp Prt-Insulin Aspa rt (Novolog Mix 70-30flexpen U-100) 100 unit/mL (70-30) insulin pen Discontinued 32 UNIT SUBCUT Daily before breakfast March 26, 2022 10:15am January 28, 2024 3:39pm 38 units before breakfast 28 units at lunchtime 34 units at dinner Start: 03-21-2022 End: 03-26-2022 Insulin Asp Prt-Insulin Aspa rt (Novolog Mix 70-30flexpen U-100) 100 unit/mL (70-30) insulin pen Discontinued 34 UNIT SUBCUT Daily before supper March 21, 2022 1:00am March 26, 2022 10:17am 38 units before breakfast 28 units at lunchtime 34 units at dinner Start: 03-21-2022 End: 03-26-2022 Insulin Asp Prt-Insulin Aspa rt (Novolog Mix 70-30flexpen U-100) 100 unit/mL (70-30) insulin pen Discontinued 28 UNIT SUBCUT Daily before lunch March 21, 2022 1:00am March 26, 2022 10:17am 38 units before breakfast 28 units at lunchtime 34 units at dinner Start: 03-27-2021 End: 01-24-2024 insulin 70/30 aspart protami ne-aspart units/mL (NOVOLOG MIX 70-30) 100 unit/mL (70-30) pen Indications: Type 2 diabetes mellitus with stage 3b chronic kidney disease, with long-term current use of insulin (HCC) INJECT 38 UNITS WITH BREAKFAST, 38 WITH LUNCH, 38 UNITS WITH DINNER SUBCUTANEOUSLY 45 mL 11 01/27/2024 Active Start: 08-29-2017 End: 03-26-2022 Insulin Asp Prt-Insulin Aspa rt (Novolog Mix 70-30flexpen U-100) 100 unit/mL (70-30) insulin pen Discontinued 38 UNITS SUBCUT Daily before breakfast August 29, 2017 12:00am March 26, 2022 10:17am 38 units before breakfast 28 units at lunchtime 34 units at dinner Start: 04-03-2017 End: 08-29-2017 Insulin Asp Prt-Insulin Aspa rt 100 unit/mL (70-30) insulin pen Discontinued 27 UNIT SUBCUT Twice daily morning & bedtime April 03, 2017 1:00am August 29, 2017 1:05pm Start: 06-26-2015 NovoLOG Mix 70 -30FlexPen U-100 100 unit/mL (70-30) injection Inject under the skin 3 times a day. 06/26/2015 Active Start: 06-26-2015 NovoLOG Mix 70 /30 FlexPen (70-30) 100 UNIT/ML Subcutaneous Suspension Pen-injector inject 22 units before breakfast and TEN UNITS before supper. Dose can Quantity: 15 Refills: 0 Ordered: 23-Jun-2016 DO Start : 26-Jun-2015 Active Comment on above: Inject subcutaneousl y 38 units with breakfast, 28 units with lunch, and 34 units with dinner INJECT 38 UNITS SUBC UTANEOUSLY WITH BREAKFAST then INJECT 28 UNITS SUBCUTANEOUSLY at lunch then INJECT 34 UNITS SUBCUTANEOUSLY at dinner INJECT 38 UNITS WITH BREAKFAST, 34 WITH LUNCH, 34 UNITS WITH DINNER SUBCUTANEOUSLY INJECT 38 UNITS WITH BREAKFAST, 38 WITH LUNCH, 38 UNITS WITH DINNER SUBCUTANEOUSLY insulin isophane, human 70 unt/ml / insulin, regular, human 30 unt/ml injectable suspension (20 sources) Insulin insulin NPH-insu prakash regular (NovoLIN 70/30) (70-30) 100 UNIT/ML injection Active inject 24 [IU] by shin bcutaneous injection in the morning, then inject 11 [IU] by subcutaneous injection in the evening insulin NPH-insulin regular (NovoLIN 70/30) (70-30) 100 UNIT/ML injection 24 units in AM, 11 units PM Subcutaneous Active Lactobac no.41-Bifidobact no .7 70 mg (3 billion cell) cap (20 sources) Start: 09-29-2018 Lactobac no.41 -Bifidobact no.7 70 mg (3 billion cell) cap Probiotic 1 tab daily 09/29/2018 Active Start: 09-29-2018 Lactobac no.41 -Bifidobact no.7 70 mg (3 billion cell) cap Probiotic 1 tab daily 0 09/29/2018 Active Comment on above: Probiotic 1 tab daily levothyroxine sodium 0.025 mg oral tablet (20 sources) l-Thyroxine Start: 12-12-19 18 End: 09-29-19 26 take 1 tablet by mouth once daily before mealtime levothyroxine (Synthroid, Levoxyl) 25 mcg tablet Indications: Hyperthyroidism Take 1 tablet (25 mcg) by mouth once daily in the morning. Take before meals. 90 tablet 3 09/28/2024 09/28/2025 Active Comment on above: Take 1 tablet by keiko th once daily. losartan potassium 50 mg oral tablet (20 sources) Angiotensin 2 Receptor Michael Start: 03-22-20 End: 03-26-19 take 1 tablet by mouth twice daily Losartan 50 mg tablet Discontinued 50 MG PO Twice daily March 22, 2022 10:35am March 26, 2022 10:17am Start: 10-08-2016 End: 09-28-2025 take 1 tablet by mouth once daily losartan (Cozaar) 50 mg tablet Indications: Essential hypertension Take 1 tablet (50 mg) by mouth once daily. 90 tablet 3 09/28/2024 09/28/2025 Active Comment on above: Take 50 mg by mouth as needed. Take 50 mg by mouth once daily. magnesium oxide 400 mg oral tablet (20 sources) Start: 01-06-2019 take 1 tablet by mouth once daily magnesium oxide (MAG-OX) 400 mg (241.3 mg magnesium) tablet Take 400 mg by mouth once daily. 01/06/2019 Active Comment on above: Take 400 mg by mouth . Take 400 mg by mouth once daily. melatonin 10 mg oral tablet (20 sources) Start: 03-21-2022 take 1 tablet by mouth at bedtime Melatonin 10 mg Tablet Active 10 MG PO Bedtime March 21, 2022 1:00am Start: 09-29-2018 melatonin 1 mg tablet 09/29/2018 Active Start: 09-29-2018 melatonin 1 mg tablet melatonin 10 mg 1 tab at bedtime 09/29/2018 Active Comment on above: melatonin 10 mg 1 tab at bedtime 24 hr metoprolol succinate 50 mg extended release oral tablet (20 sources) beta-Adrenergic Michael Start: 09-28-2024 End: 09-28-2025 take 1 tablet by mouth once daily metoprolol succinate XL (Toprol-XL) 50 mg 24 hr tablet Indications: Essential hypertension Take 1 tablet (50 mg) by mouth once daily. 90 tablet 3 09/28/2024 09/28/2025 Active Start: 04-21-2022 take 1 tablet by keiko th every twenty-four hours in the morning metoprolol succinate XL (TOPROL XL) 25 mg 24 hr tablet Take 1 tablet (25 mg total) by mouth in the morning. 04/21/2022 Active Start: 08-11-2021 End: 09-28-2024 take 1 tablet by mouth once daily metoprolol succinate XL (Toprol-XL) 25 mg 24 hr tablet Indications: Essential hypertension Take 1 tablet (25 mg) by mouth once daily. 90 tablet 3 07/12/2024 09/28/2024 Discontinued (Reorder) Start: 06-24-2017 End: 08-29-2017 take 1 tablet by mouth once daily Metoprolol Succinate 100 mg Tablet Extended Release 24 Hr Discontinued 100 MG PO Daily 0 June 24, 2017 12:00am August 29, 2017 1:04pm Comment on above: Take 25 mg by mouth once daily. multivit-min/FA/lycopen/lute in (CENTRUM SILVER MEN ORAL) (20 sources) multivit-min/FA/ lycopen/lut ein (CENTRUM SILVER MEN ORAL) Centrum Silver Men 2 QD Active multivit-min/FA/ lycopen/lutein (CENTRUM SILVER MEN ORAL) Centrum Silver Men 2 QD 0 Active Comment on above: Centrum Silver Men 2 QD MULTIVITAMIN ORAL (20 sources) Start: 09-29-2018 MULTIVITAMIN O RAL 09/29/2018 Active Start: 09-29-2018 MULTIVITAMIN O RAL Start: 09-29-2018 take 1 tablet by keiko th twice daily MULTIVITAMIN ORAL multivitamin and minerals no.11-folic acid 5 mg tablet Take 1 tablet twice a day by oral route. 0 09/29/2018 Active Comment on above: multivitamin and min erals no.11-folic acid 5 mg tablet Take 1 tablet twice a day by oral route. Multivitamin preparation (8 sources) Start: 03-21-20 take 2 tablets by mouth once daily Multivitamin Active 2 TAB PO Daily March 21, 2022 1:00am Start: 03-21-2022 take 2 tablets by mo uth once daily Multivitamin Active 2 TAB PO Daily March 21, 2022 12:00am Multivitamin Tablet (11 sources) Start: 03-21-2022 take 2 tablets by mouth once daily Multivitamin Tablet Active 2 TAB PO Daily March 21, 2022 1:00am Start: 03-21-2022 take 2 tablets by mo uth once daily Multivitamin Tablet Active 2 TAB PO Daily March 21, 2022 12:00am Nut.Tx.Gluc.Intol,Lac-Free,S oy (GLUCERNA SNACK SHAKE) liqd (20 sources) Start: 08-16-2014 take 237 mL by mouth three times daily at mealtime Nut.Tx.Gluc.Intol,Lac-Free,Soy (GLUCERNA SNACK SHAKE) liqd Indications: Nutritional deficiency , Type 2 diabetes mellitus, uncontrolled Take 237 mL by mouth three times daily with meals. 90 Can 6 08/16/2014 Active Comment on above: Take 237 mL by mouth three times daily with meals. ofloxacin 3 mg/ml ophthalmic solution (17 sources) Toan nol one Ant imi cross tie maker bryanna l Start: 02-14-2016 ofloxacin (Ocuflox) 0.3 % ophthalmic solution Administer into affected eye(s). 02/14/2016 Active Start: 02-14-2016 Ofloxacin 0.3 % Ophthalmic Solution As directed. Quantity: 0 Refills: 0 Ordered: 14-Feb-2016 DO Start : 14-Feb-2016 Active omeprazole 20 mg delayed release oral capsule (20 sources) Proton Pump Inhibitor Start: 06-24-2016 End: 09-28-2024 take 1 capsule by mouth once daily omeprazole (PriLOSEC) [address] capsule Take 1 capsule (20 mg) by mouth once daily. 06/24/2016 09/28/2024 Discontinued (Discontinued by another clinician) omeprazole OTC ( PriLOSEC OTC) 20 MG EC tablet 1 (one) time each day at the same time Active Comment on above: omeprazole 20 mg cap magdy,delayed release Take 1 capsule every day by oral route. phenylephrine hydrochloride 25 mg/ml ophthalmic solution (3 sources) alpha-1 Adrenergic Agonist Start: 09-16-2024 End: 09-16-2024 PHENYLephrine 2.5 % 1 drop (AK-DILATE, STEFANY-SYNEPHRINE) Start: 09-16-2024 End: 09-16-2024 1 drop, BOTH EYES, DIRECT ED, Starting on Maddie 09/16/24 at 1100, Until Fri09/16/24 at 2259, Administer for dilation PROTECT FROM LIGHT, OPHT CLINIC MED ORDERS Start: 05-09-2022 End: 05-10-2022 PHENYLephrine 2.5 % 1 Drop ( AK-DILATE, STEFANY-SYNEPHRINE) predniSONE 10 mg oral tablet (1 source) Start: 08-15-2023 End: 08-20-2023 take 1 tablet by mouth three times daily predniSONE (DELTASONE) 10 mg tablet Take 1 tablet (10 mg total) by mouth 3 (three) times a day for 5 days. 15 tablet 08/15/2023 08/20/2023 Active proparacaine hydrochloride 5 mg/ml ophthalmic solution (3 sources) Local Anesthetic Start: 09-16-2024 End: 09-16-2024 proparacaine 0.5 % 1 drop (ALCAINE) Start: 09-16-2024 End: 09-16-2024 1 drop, BOTH EYES, DIRECT ED, Starting on Maddie 09/16/24 at 1100, Until Maddie 09/16/24 at 2259, Administer for pneumo tonometry, tonopen tonometry, or pachymetry. In the event of a proparacaine shortage, administer tetracaine 0.5% ophthalmic drops 1 drop in both eyes as directed for pneumo tonometry, tonopen tonometry, or pachymetry, OPHT CLINIC MED ORDERS Start: 05-09-2022 End: 05-10-2022 proparacaine 0.5 % 1 Drop (A LCAINE) rivaroxaban 20 mg oral tablet (20 sources) Factor Xa Inhibitor Start: 01-28-2024 End: 02-25-2024 take 1 tablet by mouth once daily at dinner Rivaroxaban (Xarelto) 15 mg tablet Discontinued 15 MG PO Daily January 28, 2024 1:00am February 25, 2024 12:10pm must administer with evening meal Start: 12-24-2023 End: 12-23-2024 take 1 tablet by mouth twice daily at mealtime rivaroxaban (Xarelto) 15 mg tablet Indications: Paroxysmal atrial fibrillation (Multi) Take 1 tablet (15 mg) by mouth 2 times daily (morning and late afternoon). Take with food. 180 tablet 3 12/24/2023 12/23/2024 Active Start: 04-03-2017 End: 12-24-2023 take 1 tablet by mouth once daily XARELTO 20 mg tablet Take 20 mg by mouth once daily. 04/04/2017 Active Comment on above: Take 20 mg by mouth once daily. tamsulosin hydrochloride 0.4 mg oral capsule (20 sources) alpha-Adrenergic Michael Start: 01-11-2022 End: 11-27-2024 take 1 capsule by mouth once daily tamsulosin (Flomax) 0.4 mg 24 hr capsule Take 1 capsule (0.4 mg) by mouth once daily. 07/06/2022 Active take 1 capsule by [facility] every twenty-four hours in the morning tamsulosin (Flomax) 0.4 MG 24 hr capsule Take 0.4 mg by mouth in the morning. Active Comment on above: Take 1 capsule by mo [facility] once daily. tiZANidine 2 mg oral capsule (9 sources) Central alpha-2 Adrenergic Agonist Start: take 1 capsule by mouth once daily at bedtime as needed Tizanidine 2 mg capsule Active 2 MG PO Daily at bedtime as needed for muscle spasticity 30 June 08, 2024 12:00am traMADol hydrochloride 50 mg oral tablet (20 sources) Opioid Agonist Start: 5 Tramadol 50 mg tablet Active 50 MG PO Twice daily as needed for pain 14 June 08, 2024 12:00am take 1/2 to 1 tablet one to two times daily as needed for severe pain Start: 05-13-2016 take 1 tablet by [facility] every eight hours as needed for pain traMADol HCl - 50 MG Oral Tablet TAKE 1 TABLET BY MOUTH EVERY 8 HOURS NEEDED FOR PAIN Quantity: 12 Refills: 0 Ordered: 14-May-2016 DO Start : 13-May-2016 Active Comment on above: tramadol 50 mg table t triamcinolone acetonide 1 mg/ml topical cream (20 sources) Corticosteroid triamcinolone ac etonide (KENALOG) 0.1 % cream as needed. Active triamcinolone ac etonide (KENALOG) 0.1 % cream triamcinolone acetonide 0.1 % topical cream APPLY A THIN LAYER TO THE AFFECTED AREA(S) BY TOPICAL ROUTE 2 TIMES PER DAY Active Comment on above: triamcinolone aceton rosalba 0.1 % topical cream APPLY A THIN LAYER TO THE AFFECTED AREA(S) BY TOPICAL ROUTE 2 TIMES PER DAY tropicamide 10 mg/ml ophthalmic solution (3 sources) Anticholinergic Start: 09-16-2024 End: 09-16-2024 tropicamide 1 % 1 drop (MYDRIACYL) Start: 09-16-2024 End: 09-16-2024 1 drop, BOTH EYES, DIRECT ED, Starting on Maddie 09/16/24 at 1100, Until Maddie 09/16/24 at 2259, Administer for dilation, OPHT CLINIC MED ORDERS Start: 05-09-2022 End: 05-10-2022 tropicamide 1 % 1 Drop (MYDR IACYL) TRUE METRIX GLUCOSE METER [place] (6 sources) Start: 07-17-2023 TRUE METRIX GL UCOSE METER misc USE DIRECTED 07/17/2023 Active Completed/Discontinued Medications Medication Drug Class(es) Dates Sig (Normalized) Sig (Original) acetaminophen 300 mg / codeine phosphate 30 mg oral tablet (2 sources) Opioid Agonist Start: 02-06-2016 Acetaminophen-Cod eine #3 300-30 MG Oral Tablet Quantity: 60 Refills: 0 Ordered: 06-Feb-2016 DO Start : 06-Feb-2016 Active [id number] 200 actuat albuterol 0.09 mg/actuat metered dose inhaler (2 sources) beta2-Adrenergic Agonist Start: 10-06-2016 take 2 puff(s) by inhalation every six hours as needed for wheezing Ventolin HFA 108 (90 Base) MCG/ACT Inhalation Aerosol Solution INHALE 2 (TWO) puffs EVERY 6 HOURS NEEDED FOR WHEEZING or SHORTNESS Quantity: 18 Refills: 0 Ordered: 06-Oct-2016 DO Start : 06-Oct-2016 Active amiodarone hydrochloride 100 mg oral tablet (20 sources) Antiarrhythmic Start: 04-03-2017 End: 06-24-2017 Amiodarone 100 mg Tablet Discontinued 200 MG PO Daily April 03, 2017 4:01pm June 24, 2017 2:08pm 600mg orally daily for 2 weeks then 200mg daily Start: 04-03-2017 End: 06-24-2017 take 600 mg by mouth once daily, then take 200 mg by mouth once daily Amiodarone Discontinued 200 MG PO Daily April 03, 2017 3:01pm June 24, 2017 1:08pm 600mg orally daily for 2 weeks then 200mg daily Start: 04-03-2017 End: 04-03-2017 take 1 tablet by mouth once daily Amiodarone 100 mg Tablet Discontinued 100 MG PO Daily April 03, 2017 1:00am April 03, 2017 4:01pm Start: 11-13-2015 take 0.5 tablet by m outh once daily Amiodarone HCl - 200 MG Oral Tablet TAKE 1/2 (ONE-HALF) OF A TABLET BY MOUTH DAILY Quantity: 45 Refills: 0 Ordered: 05-May-2016 DO Start : 13-Nov-2015 Active apixaban 5 mg oral tablet (19 sources) Factor Xa Inhibitor Start: 03-22-2022 End: 01-28-2024 take 1 tablet by mouth twice daily Apixaban (Eliquis) 5 mg tablet Discontinued 5 MG PO Twice daily 60 March 22, 2022 1:00am January 28, 2024 3:39pm aspirin 81 mg delayed release oral tablet (20 sources) Platelet Aggregation Inhibitor, Nonsteroidal Anti-inflammatory Drug Start: 03-21-2022 End: 03-22-2022 take 1 tablet by mouth once daily Aspirin 81 mg Tablet,Delayed Release (Dr/Ec) Discontinued 81 MG PO Daily March 21, 2022 1:00am March 22, 2022 2:09pm Start: 08-14-2016 End: 06-16-2017 take 1 tablet by mouth once daily Aspirin 81 mg Tablet,Delayed Release (Dr/Ec) Discontinued 81 MG PO Daily April 03, 2017 1:00am June 16, 2017 1:20am azithromycin 250 mg oral tablet (2 sources) Macrolide Antimicrobial Start: 09-22-2016 Azithromycin 250 MG Oral Tablet TAKE 2 TABLETS NOW, THEN TAKE 1 TABLET DAILY FOR 4 DAYS Quantity: 6 Refills: 0 Ordered: 22-Sep-2016 DO Start : 22-Sep-2016 Active baclofen 10 mg oral tablet (20 sources) gamma-Aminobutyric Acid-ergic Agonist End: 06-29-2024 baclofen (LIORESAL) 10 mg tablet 06/29/2024 Discontinued (Discontinued by another Health Care Provider) Comment on above: baclofen 10 mg table t benzonatate 100 mg oral capsule (4 sources) Non-narcotic Antitussive Start: 09-30-2016 take 1 capsule by mouth three times daily Benzonatate 100 MG Oral Capsule TAKE 1 CAPSULE BY MOUTH THREE TIMES DAILY Quantity: 30 Refills: 0 Ordered: 30-Sep-2016 DO Start : 30-Sep-2016 Active brompheniramine maleate 0.4 mg/ml / dextromethorphan hydrobromide 2 mg/ml / pseudoephedrine hydrochloride 6 mg/ml oral solution (2 sources) alpha-Adrenergic Agonist, Uncompetitive U-fogfjy-R-aspartat e Receptor Antagonist, Sigma-1 Agonist Start: 10-06-2016 take 10 mL by mouth every eight hours as needed for cough Pseudoeph-Bromphe n-DM 30-2-10 MG/5ML Oral Syrup take 10ml BY MOUTH EVERY 8 HOURS NEEDED for cough Quantity: 200 Refills: 0 Ordered: 06-Oct-2016 DO Start : 06-Oct-2016 Active ciprofloxacin 3 mg/ml / dexamethasone 1 mg/ml otic suspension (11 sources) Corticosteroid, Quinolone Antimicrobial Start: 12-11-2015 Ciprodex 0.3-0.1 % Otic Suspension Quantity: 75 Refills: 0 Ordered: 11-Dec-2015 DO Start : 11-Dec-2015 Active End: 01-19-2024 ciprofloxacin-dexAMETHasone (CiproDEX) otic suspension 4 drops in the morning and 4 drops before bedtime. 01/19/2024 Discontinued diclofenac sodium 0.01 mg/mg topical gel (20 sources) Nonsteroidal Anti-inflammatory Drug Start: 06-24-2017 End: 08-29-2017 apply 2 g topically four times daily Diclofenac Sodium (Voltaren) 1 % Gel Discontinued 2 GM TOPICAL Four times daily 0 June 24, 2017 12:00am August 29, 2017 1:07pm docusate sodium 100 mg oral capsule (20 sources) Start: 06-24-2017 End: 08-29-2017 take 2 capsules by mouth twice daily Docusate Sodium 100 mg Capsule Discontinued 200 MG PO Twice daily 0 June 24, 2017 12:00am August 29, 2017 1:07pm Start: 06-24-2017 End: 08-29-2017 take 200 mg by mouth twice daily Docusate Sodium Discontinued 200 MG PO Twice daily 0 June 23, 2017 11:00pm August 29, 2017 12:07pm enteric contrast (will be provided with radiology test) (1 source) Start: 01-11-2022 End: 01-12-2022 enteric contrast (will be provided with radiology test) Indications: Lower urinary tract symptoms (LUTS) , Prostate CA (HCC) , 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) , Diffuse large B-cell lymphoma, unspecified body region (HCC) For CT CHESTABD/PEL W IVCON Routine order Administer, As Directed One Time Only, via Oral, Rectal, both Oral and Rectal, Enteric Tube, Stoma or Indwelling Catheter, Enteric Contrast as designated per enteric contrast guidelines 1 Each 0 01/11/2022 01/12/2022 Comment on above: For CT CHESTABD/PEL W IVCON Routine order Administer, As Directed One Time Only, via Oral, Rectal, both Oral and Rectal, Enteric Tube, Stoma or Indwelling Catheter, Enteric Contrast as designated per enteric contrast guidelines ezetimibe 10 mg / simvastatin 10 mg oral tablet (20 sources) HMG-CoA Reductase Inhibitor, Dietary Cholesterol Absorption Inhibitor Start: 04-03-2017 End: 03-20-2022 take 1 tablet by mouth at bedtime Ezetimibe-Simvastat in (Vytorin 10-10) 10-10 mg tablet Discontinued 10 MG PO Bedtime April 03, 2017 1:00am March 20, 2022 12:31pm Start: 06-20-2016 take 1 tablet by keiko th once daily Vytorin 10-10 MG Oral Tablet TAKE 1 TABLET BY MOUTH EVERY DAY Quantity: 30 Refills: 0 Ordered: 20-Jun-2016 DO Start : 20-Jun-2016 Active take 1 tablet by keiko th once daily ezetimibe-simvastatin (VYTORIN) 10-20 mg per tablet 1 tablet Orally daily Active fluticasone propionate 0.05 mg/actuat metered dose nasal spray (20 sources) Corticosteroid Start: 03-21-2022 End: 01-28-2024 take 1 spray(s) nasal route once daily Fluticasone Propionate 50 mcg/actuation [place],Suspension Discontinued 2 SPRAY INTRANASAL Daily March 21, 2022 1:00am January 28, 2024 3:39pm administer into each nostril Start: 09-30-2016 fluticasone (F LONASE) 50 mcg/actuation nasal spray 1 [place] as needed. 09/30/2016 Active Start: 09-30-2016 take 2 spray(s) nasa l route once daily Fluticasone Propionate 50 MCG/ACT Nasal Suspension use 2 (TWO) sprays in each nostril EVERY DAY Quantity: 16 Refills: 0 Ordered: 30-Sep-2016 DO Start : 30-Sep-2016 Active Comment on above: 1 [place] as needed. 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 Discontinue saline lock post exam. If Pt. has a central line or IVAD, may access for administration according to line specific nursing protocol. Once exam is complete flush line and de-access according to line specific nursing protocol in the CT contrast administration guidelines link. 1 Each 0 01/11/2022 01/12/2022 Comment on above: CT Chest ABD/PEL-Inj ect, intravenously, once for 1 dose.No IV access, insert saline lock prior to the beginning of sedation, infusion, injection of imaging exam. Discontinue saline lock post exam. If Pt. has a central line or IVAD, may access for administration according to line specific nursing protocol. Once exam is complete flush line and de-access according to line specific nursing protocol in the CT contrast administration guidelines link. Lactobac no.41-Bifidobact no.7 (PROBIOTIC-10) 70 mg (3 billion cell) cap (2 sources) Start: 2018 Lactobac no.41-Bifidobact no.7 (PROBIOTIC-10) 70 mg (3 billion cell) cap Probiotic 1 tab daily 0 09/29/2018 Active Comment on above: Probiotic 1 tab daily 0.375 ml leuprolide acetate 120 mg/ml prefilled syringe (20 sources) Gonadotropin Releasing Hormone Receptor Agonist Start: 2024 End: 2024 inject 1 dose by subcutaneous injection once 45 mg, SUBCUTANEOUS, ONCE, 1 dose, On Fri06/29/24 at 1100, Hazardous Chemotherapy Drug: Use appropriate PPE. Start: 01-28-2024 Leuprolide 7.5 mg (Ped) kit Active 7.5 MG IM EVERY 6 MONTHS January 28, 2024 4:37pm Start: 01-28-2024 End: 01-28-2024 inject 7.5 mg by intramuscular injection every month Leuprolide 7.5 mg (Ped) kit Discontinued 7.5 MG IM every month January 28, 2024 1:00am January 28, 2024 4:39pm Start: 12-29-2023 End: 12-29-2023 inject 1 dose by intramuscular injection once 45 mg, INTRAMUSCULAR, ONCE, 1 dose, On Fri12/29/23 at 1500, Hazardous Chemotherapy Drug: Use appropriate PPE. leuprolide, 3-mo nth, (Lupron Depot) 22.5 mg injection Inject 22.5 mg into the muscle every 3 months. Active leuprolide, 1-mo nth, (Lupron Depot) 7.5 MG injection Active leuprolide aceta te, 6 month, (ELIGARD) 45 mg injection Inject 45 mg under the skin in the morning and 45 mg at noon and 45 mg in the evening. Active Lupron SOLN Karan tity: 0 Refills: 0 Ordered: 19-Feb-2022 DO Active levoFLOXacin 750 mg oral tablet (2 sources) Quinolone Antimicrobial Start: 12-11-2015 levoFLOXacin 750 MG Oral Tablet Quantity: 14 Refills: 0 Ordered: 11-Dec-2015 DO Start : 11-Dec-2015 Active loratadine 10 mg oral tablet (20 sources) Start: 03-21-2022 End: 01-28-2024 take 1 tablet by mouth once daily as needed Loratadine (Claritin) 10 mg Tablet Discontinued 10 MG PO Daily as needed for Allergy Symptoms March 21, 2022 1:00am January 28, 2024 3:37pm Comment on above: as needed. methIMAzole 10 mg oral tablet (20 sources) Thyroid Hormone Synthesis Inhibitor Start: 06-16-2017 End: 08-11-2021 take 1 tablet by mouth twice daily Methimazole 10 mg tablet Discontinued 10 MG PO Twice daily August 29, 2017 12:00am August 11, 2021 2:58pm methylPREDNISolone 4 MG Oral Tablet Therapy Pack (2 sources) Start: 09-22-2016 take 2 tablets by mouth once methylPREDNISolone 4 MG Oral Tablet Therapy Pack Take as directed per package instructions. Quantity: 21 Refills: 0 Ordered: 22-Sep-2016 DO Start : 22-Sep-2016 Active moxifloxacin 400 mg oral tablet (2 sources) Quinolone Antimicrobial Start: 10-06-2016 take 1 tablet by mouth once daily Moxifloxacin HCl - 400 MG Oral Tablet TAKE 1 TABLET BY MOUTH DAILY Quantity: 7 Refills: 0 Ordered: 06-Oct-2016 DO Start : 06-Oct-2016 Active 12 hr orphenadrine citrate 100 mg extended release oral tablet (7 sources) Muscle Relaxant Start: 05-13-2016 Orphenadrine Citrate ER 100 MG Oral Tablet Extended Release 12 Hour TAKE 1 TABLET BY MOUTH EVERY 6 TO 8 HOURS NEEDED FOR MUSCLE SPASMS Quantity: 20 Refills: 0 Ordered: 14-May-2016 DO Start : 13-May-2016 Active psyllium 6000 mg powder for oral suspension (20 sources) Start: 06-24-2017 End: 08-29-2017 Psyllium Husk (Konsyl Sugar-Free) 6 gram Powder In Packet Discontinued 1 PACKET PO Daily 0 June 24, 2017 12:00am August 29, 2017 1:06pm ramipril 5 mg oral capsule (11 sources) Angiotensin Converting Enzyme Inhibitor Start: 06-11-2016 take 1 capsule by mouth once daily Ramipril 5 MG Oral Capsule TAKE 1 CAPSULE BY MOUTH DAILY Quantity: 90 Refills: 0 Ordered: 11-Jun-2016 DO Start : 11-Jun-2016 Active Start: 11-13-2015 take 1 capsule by mo [facility] once daily Ramipril 2.5 MG Oral Capsule TAKE 1 CAPSULE BY MOUTH DAILY Quantity: 90 Refills: 0 Ordered: 16-Jul-2016 DO Start : 13-Nov-2015 Active sotalol hydrochloride 120 mg oral tablet (20 sources) Antiarrhythmic Start: 08-29-2017 End: 08-11-2021 take 1 tablet by mouth every twelve hours Sotalol 120 mg Tablet Discontinued 120 MG PO Q12H August 29, 2017 12:00am August 11, 2021 2:58pm spironolactone 25 mg oral tablet (19 sources) Aldosterone Antagonist Start: 03-22-2022 End: 01-28-2024 take 1 tablet by mouth once daily Spironolactone 25 mg Tablet Discontinued 25 MG PO Daily March 22, 2022 1:00am January 28, 2024 3:37pm Problems Active Problems Problem Classification Problem Date Documented Date Episodic/Chronic Acquired foot deformities (4 sources) Hallux valgus; Translations: [Hallux valgus (acquired), right foot] 11-28-2023 Chronic Blindness and vision defects (4 sources) Myopia of right eye; Translations: [Myopia, right eye] Onset: 5 Episodic Cancer of prostate (20 sources) Malignant neoplasm of prostate; Translations: [Malignant tumor of prostate] Onset: 4 10-26-2013 Chronic Cancer; other and unspecified primary (15 sources) H/O: malignant neoplasm; Translations: [Personal history of unspecified malignant neoplasm] Episodic Cardiac dysrhythmias (20 sources) Paroxysmal atrial fibrillation; Translations: [Atrial fibrillation] Onset: 6 10-27-2019 Chronic Cataract (20 sources) Bilateral pseudophakia; Translations: [Presence of intraocular lens] Onset: 5 Resolved: 7 11-28-2016 Chronic Chronic kidney disease (20 sources) Chronic kidney disease stage 3; Translations: [Chronic renal insufficiency, stage III (moderate)] Onset: 0 10-27-2019 Chronic Chronic kidney disease (2 sources) Chronic kidney disease; Translations: [Chronic kidney disease, stage 3a (Multi)] Onset: 4 Chronic obstructive pulmonary disease and bronchiectasis (20 sources) Chronic obstructive lung disease; Translations: [Chronic obstructive pulmonary disease, unspecified] Onset: 7 10-27-2019 Chronic Conduction disorders (20 sources) Presence of automatic (implantable) cardiac defibrillator; Translations: [Cardiac pacemaker in situ] Onset: 8 10-27-2019 Chronic Coronary atherosclerosis and other heart disease (20 sources) Coronary atherosclerosis; Translations: [Atherosclerotic heart disease of [place] coronary artery without angina pectoris] Onset: 7 10-27-2019 Chronic Diabetes mellitus with complications (20 sources) Insulin treated type 2 diabetes mellitus; Translations: [Type 2 diabetes mellitus with diabetic chronic kidney disease] Onset: 0 Resolved: 7 Chronic Diabetes mellitus without complication (20 sources) Type 2 diabetes mellitus without complications; Translations: [Diabetes mellitus] Onset: 7 11-28-2016 Chronic Diabetes mellitus without complication (1 source) Diabetes mellitus without complication; Translations: [Type 2 diabetes mellitus with stage 3b chronic kidney disease, with long-term current use of insulin (HCC)] Onset: 5 Disorders of lipid metabolism (20 sources) Hyperlipidemia, unspecified; Translations: [Hyperlipidemia] Onset: 0 Chronic Comment on above: Added by Problem Lis t Migration; 2013-03-18; Esophageal disorders (20 sources) Gastroesophageal reflux disease; Translations: [Gastro-esophageal reflux disease without esophagitis] Onset: 0 10-27-2019 Chronic Essential hypertension (20 sources) Essential (primary) hypertension; Translations: [Hypertensive disorder] Onset: 0 Chronic Comment on above: Added by Problem Lis t Migration; 2013-03-18; Fluid and electrolyte disorders (20 sources) Dehydration; Translations: [Dehydration] 08-11-2021 Episodic Hyperplasia of prostate (20 sources) Large prostate ; Translations: [Hypertrophy (benign) of prostate without urinary obstruction and other lower urinary tract symptom (LUTS)] Onset: 5 06-28-2014 Chronic Malaise and fatigue (20 sources) Other fatigue; Translations: [Asthenia] Onset: 8 03-20-2022 Episodic Mood disorders (20 sources) Depressive disorder; Translations: [Depression] Onset: 3 03-23-2022 Chronic Non-Hodgkin`s lymphoma (20 sources) Non-Hodgkin lymphoma, unspecified, unspecified site; Translations: [Non-Hodgkin's lymphoma (clinical)] Onset: 2 01-30-2012 Chronic Non-Hodgkin`s lymphoma (4 sources) History of B-cell lymphoma; Translations: [Personal history of non-Hodgkin lymphomas] Episodic Nonspecific chest pain (20 sources) Chest pain, unspecified; Translations: [Atypical chest pain] Onset: 8 07-19-2017 Episodic Other acquired deformities (12 sources) Scoliosis deformity of spine; Translations: [Scoliosis, unspecified] 01-28-2024 Chronic Other acquired deformities (8 sources) Scoliosis, unspecified; Translations: [Scoliosis [and kyphoscoliosis], idiopathic] 01-28-2024 Chronic Other aftercare (17 sources) Long-term current use of anticoagulant; Translations: [Long-term (current) use of anticoagulants] Onset: 4 12-24-2023 Episodic Other aftercare (15 sources) Drug therapy finding; Translations: [Long-term (current) use of other medications] Episodic Other aftercare (2 sources) clother in (current) use of insulin; Translations: [Type 2 diabetes mellitus without complication, with long-term current use of insulin (HCC)] Onset: 5 Episodic Other and ill-defined heart disease (4 sources) Left ventricular cardiac dysfunction; Translations: [Heart disease, unspecified] Onset: 4 12-24-2023 Chronic Other and ill-defined heart disease (2 sources) Heart disease, unspecified; Translations: [Heart disease, unspecified] Onset: 4 Chronic Other circulatory disease (2 sources) Peripheral vascular disease; Translations: [Other specified peripheral vascular diseases] 11-28-2023 Chronic Other circulatory disease (20 sources) H/O: hypertension; Translations: [Personal history of other diseases of circulatory system] Resolved: 2 Episodic Comment on above: Added by Problem Lis t Migration; 2013-03-18; Other connective tissue disease (4 sources) Other enthesopathies, not elsewhere classified; Translations: [OTHER ENTHESOPATHIES NEC] Onset: 3 Episodic Other diseases of kidney and ureters (20 sources) Hyperparathyroidism due to renal insufficiency; Translations: [Secondary hyperparathyroidism of renal origin] Onset: 6 05-28-2016 Chronic Other ear and sense organ disorders (20 sources) Chronic otitis externa; Translations: [Unspecified chronic otitis externa, unspecified ear] Onset: 0 10-27-2019 Chronic Other ear and sense organ disorders (2 sources) Impacted cerumen of bilateral ears; Translations: [Impacted cerumen, bilateral] 01-13-2024 Episodic Other ear and sense organ disorders (2 sources) Impacted cerumen in right ear; Translations: [Impacted cerumen, right ear] 07-14-2024 Episodic Other ear and sense organ disorders (2 sources) 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; Translations: [Cholesteatoma of left external ear] 07-14-2024 Episodic Other ear and sense organ disorders (2 sources) Cholesteatoma; Translations: [Unspecified cholesteatoma, unspecified ear] Onset: 5 07-14-2024 Episodic Other gastrointestinal disorders (15 sources) History of gastroesophageal reflux disease; Translations: [Personal history of other diseases of digestive system] Episodic Other gastrointestinal disorders (2 sources) Constipation; Translations: [Constipation, unspecified] Onset: 5 07-14-2024 Episodic Other hematologic conditions (4 sources) Raised cardiac enzyme or marker; Translations: [Other specified abnormalities of plasma proteins] 03-20-2022 Episodic Other hematologic conditions (4 sources) Other specified abnormalities of plasma proteins; Translations: [Other abnormal blood chemistry] 03-22-2022 Episodic Other injuries and conditions due to external causes (2 sources) Foreign body in left ear; Translations: [Foreign body in left ear, initial encounter] 07-14-2024 Episodic Other lower respiratory disease (20 sources) Nodule of lung; Translations: [Solitary pulmonary nodule] 08-11-2021 Episodic Other male genital disorders (20 sources) Male erectile dysfunction, unspecified; Translations: [Impotence of organic origin] Onset: 0 10-27-2019 Chronic Other nervous system disorders (12 sources) Chronic pain; Translations: [Other chronic pain] 01-28-2024 Chronic Other nervous system disorders (20 sources) Other chronic pain; Translations: [Other chronic pain] Onset: 4 01-28-2024 Chronic Other nervous system disorders (3 sources) Neuropathy; Translations: [Polyneuropathy, unspecified] 11-28-2023 Chronic Other nervous system disorders (15 sources) H/O: cataract; Translations: [Personal history of other disorders of nervous system and sense organs] Episodic Other non-traumatic joint disorders (6 sources) Shoulder pain; Translations: [Pain in right shoulder] 06-24-2017 Episodic Other non-traumatic joint disorders (16 sources) Pain in right shoulder; Translations: [Right shoulder pain] 06-24-2017 Episodic Other non-traumatic joint disorders (2 sources) Hip pain; Translations: [Pain in right hip] 01-19-2024 Episodic Other nutritional; endocrine; and metabolic disorders (15 sources) H/O: diabetes mellitus; Translations: [Personal history of other endocrine, metabolic, and immunity disorders] Episodic Other nutritional; endocrine; and metabolic disorders (19 sources) Overweight in adulthood with body mass index of 25 or more but less than 30; Translations: [Overweight] Onset: 4 12-24-2023 Episodic Other upper respiratory disease (20 sources) Rhinitis; Translations: [Chronic rhinitis] Onset: 0 10-27-2019 Chronic Other upper respiratory disease (10 sources) Congestion of nasal sinus; Translations: [Nasal congestion] 02-25-2024 Episodic Other upper respiratory infections (13 sources) Nasopharyngitis; Translations: [Acute nasopharyngitis [common cold]] 02-25-2024 Episodic Stacey-; endo-; and myocarditis; cardiomyopathy (except that caused by tuberculosis or sexually transmitted disease) (20 sources) Cardiomyopathy; Translations: [Other cardiomyopathies] Onset: 4 03-21-2022 Chronic Peripheral and visceral atherosclerosis (1 source) Peripheral vascular disease, unspecified; Translations: [Peripheral vascular disease, unspecified] Onset: Chronic Residual codes; unclassified (15 sources) H/O: respiratory disease; Translations: [Other specified personal history presenting hazards to health] Episodic Residual codes; unclassified (13 sources) History of chest pain; Translations: [Personal history of other specified diseases] Episodic Residual codes; unclassified (20 sources) History of clinical finding in subject; Translations: [Personal history of other specified diseases] Episodic Residual codes; unclassified (20 sources) Altered mental status; Translations: [Altered mental status, unspecified] 03-22-2022 Episodic Residual codes; unclassified (3 sources) Altered mental status, unspecified; Translations: [Altered mental status] 03-22-2022 Episodic Residual codes; unclassified (3 sources) Never smoked tobacco; Translations: [Other specified health status] Onset: 4 05-19-2023 Episodic Residual codes; unclassified (2 sources) Other specified health status; Translations: [Other specified health status] Onset: 4 Episodic Retinal detachments; defects; vascular occlusion; and retinopathy (20 sources) Bilateral epiretinal membrane of eyes; Translations: [Puckering of macula, bilateral] Onset: 5 Resolved: 7 11-28-2016 Chronic Spondylosis; intervertebral disc disorders; other back problems (20 sources) Degeneration of lumbosacral intervertebral disc; Translations: [Other intervertebral disc degeneration, lumbosacral region] Onset: 9 10-27-2019 Chronic Syncope (20 sources) Syncope and collapse; Translations: [Syncope and collapse] Onset: 8 06-24-2017 Episodic Thyroid disorders (20 sources) Hyperthyroidism; Translations: [Thyrotoxicosis without mention of goiter or other cause, and without mention of thyrotoxic crisis or storm] Onset: 0 Chronic Unclassified (3 sources) Thyrotoxicosis, unsp without thyrotoxic crisis or storm; Translations: [Thyrotoxicosis, unsp without thyrotoxic crisis or storm] Onset: 8 Unclassified (1 source) Family hx of ischem heart dis and oth dis of the circ sys Onset: 8 Unclassified (1 source) Pure hypercholesterolemia, unspecified Onset: 8 Unclassified (1 source) Fuchs' corneal dystrophy of both eyes; Translations: [Fuchs' corneal dystrophy of both eyes] Onset: 7 Viral infection (20 sources) Disease caused by 2019-nCoV; Translations: [COVID-19] 03-21-2022 Episodic Past or Other Problems Problem Classification Problem Date Documented Da te Episodic/Chronic Genitourinary symptoms and ill-defined conditions (20 sources) H/O: urinary anomaly; Translations: [Personal history of other specified urinary system disorders] Onset: 05-06-2022 Episodic Lymphadenitis (20 sources) Lymphadenopathy; Translations: [Enlarged lymph nodes, unspecified] Onset: 07-10-2011 07-10-2011 Episodic Mood disorders (7 sources) Mood disorders Onset: 08-14-2023 Resolved: 10-16-2023 08-14-2023 Other aftercare (20 sources) Patient encounter status; Translations: [clother in (current) use of antithrombotics/ant iplatelets] Onset: 06-18-2017 10-27-2019 Episodic Other aftercare (20 sources) Long-term current use of drug therapy; Translations: [clother in (current) use of antithrombotics/ant iplatelets] Onset: 06-18-2017 10-27-2019 Episodic Other aftercare (3 sources) Taking high risk medication; Translations: [Other artillery specialist (current) drug therapy] Onset: 04-09-2023 Resolved: 09-28-2024 12-24-2023 Episodic Other aftercare (2 sources) Other artillery specialist (current) drug therapy; Translations: [Other artillery specialist (current) drug therapy] Onset: 04-09-2023 Episodic Other aftercare (2 sources) retirement (current) use of anticoagulants; Translations: [retirement (current) use of anticoagulants] Onset: 04-09-2023 Episodic Other diseases of veins and lymphatics (1 source) Venous stasis; Translations: [Other specified disorders of veins] 08-27-2023 Episodic Other eye disorders (20 sources) Fuchs' corneal dystrophy; Translations: [Fuchs' endothelial dystrophy] Onset: 11-28-2016 11-28-2016 Episodic Other nutritional; endocrine; and metabolic disorders (1 source) Overweight; Translations: [Overweight] 08-15-2023 Episodic Other nutritional; endocrine; and metabolic disorders (2 sources) Body mass index (BMI) 26.0-26.9, adult; Translations: [Body mass index (BMI) 26.0-26.9, adult] Onset: 12-24-2023 Episodic Other screening for suspected conditions (not mental disorders or infectious disease) (20 sources) Raised prostate specific antigen; Translations: [Elevated prostate specific antigen [PSA]] Onset: 06-28-2014 06-28-2014 Episodic Otitis media and related conditions (20 sources) Chronic otitis media; Translations: [Unspecified otitis media] Onset: 04-09-2023 04-09-2023 Episodic Residual codes; unclassified (1 source) Localized edema; Translations: [Localized edema] Onset: 05-07-2024 Episodic Spondylosis; intervertebral disc disorders; other back problems (20 sources) Lumbosacral radiculopathy; Translations: [Radiculopathy, lumbosacral region] Onset: 06-18-2017 10-27-2019 Episodic Thyroid disorders (1 source) Disorder of thyroid, unspecified Onset: 08-05-2017 Episodic Unclassified (13 sources) Never smoked tobacco; Translations: [Never a smoker] Unclassified (2 sources) Onset: 05-19-2023 Resolved: 09-28-2024 05-19-2023 Results Test Name Value Interpretation Reference Range Facility Jhon 09-27-2024 CNOV Office Visit (ENDOLN ) -- JAMEL BONDS ([id number]) 1935 M Date Time Provider Department 09/27/24 1:00 PM ARNOLD HANDLEY ENDOLN During your visit today, we recorded the following information about you: Pulse Blood pressure Weight 57/minute 121/57 81.6 kg Arnold Handley, JOSE.CARDING SUPERVISOR 09/27/2024 1:37 PM Signed Endocrinology Follow-up History of Present Illness Jamel Bonds is a 88 year old male presents [...] cocoa 11-12 PM: Dinner 2 slices of vincentian cheese and ham, Glucerna 5-6 PM: Supper: biggest meal SMBG Frequency of Monitoring: Three times a Day BG Values: See HPI Hypoglycemia Frequency: none Current DM Related Medications: Current Medications 09/27/2024 DIABETES THERAPIES Medication Dosage Pharm Subclass FARXIGA 10 mg tablet TAKE 1 TABLET BY MOUTH DAILY WITH BREAKFAST Antihyperglycemic - Sodium Glucose Cotransporter-2 (SGLT2) Inhibitors NOVOLOG MIX 70-30 100 unit/mL [...] FOR IMPLANTED VASCULAR ACCESS DEVICE (IVAD) FLUSH. AMBULATORY/OUTPATIENT: PLEASE REORDER UPON HOSPITAL DISCHARGE May [...] and DME - Glucose Monitoring Test Supplies etzhbxf-bmaksoxyn-eiozsut D3 (OS-BESSY 500+D) 500 mg(1,250mg) -200 unit [...] fluticasone (FLONASE) 50 mcg/actuation nasal spray 1 [place] as needed. Nasal Corticosteroids Insulin Reasnor, Disposable, (UNIFINE PENTIPS PLUS) 32 gauge x 5/32 Use with insulin pens 3 times daily Dx: E11.65 Medical Supplies and DME - Insulin Reasnor-Syringes and Admin Supplies Lact (more content not included)... Normal [facility] HEMOGLOBIN A1C (POC)on 09-27 HbA1c (Bld) [Mass fraction] 7.7 % Abnormal 4.3 - 5.6 % [facility] Comment on above: [id number] Location:[facility] [place], [place], [address] Point of care (POC) Hemoglobin A1c (HGBA1C) [...] specific diabetes management situations: The POC device tax commissioner provides a normal range of 4.2% to 6.5% for the HGBA1C POC test. However, the [employer] Diabetes [employer] guidelines indicate that patients with [...] anemia) that alter red blood cell lifespan. Interpretation and review of laboratory results Abnormal [facility] OCT MACULA CIRRUS OU (BOTH E YES)on 09-16-2024 [facility] Radiology Study observation (narrative) [facility] CNOVon 07-08-2024 CNOV Office Visit (ENDOLN ) -- JALYNJAMEL Ruth ([id number]) 1935 M Date Time Provider Department 07/08/24 1:30 PM ARNOLD HANDLEY ENDOLN During your visit today, we recorded the following information about you: Pulse Blood pressure Weight Height 60/minute 111/53 81.6 kg 1.727 m Arnold Handley APRN.CARDING SUPERVISOR 07/08/2024 2:20 PM Signed Endocrinology Follow-up History of Present Illness Jamel Solanoleon is a 88 year old male presents today for follow up of DM Type 2 and hypothyroidism. Was recently admitted to [facility] for hyperkalemia. reports he was eating bananas, taking a potassium supplement, and using Balance of Life supplement. He is no longer taking these. Recent labs on 06/29 show potassium normalized. No acute complaints regarding blood sugar today. has been keeping him on an eating schedule which is helping his blood sugars. He notes he is having to use more test strips as he has trouble fitting the strips in his meter due to his dexterity and will occasionally have to waste some. HbA1c POC today is 6.9%. On LT4 25 mcg daily, takes appropriately. Date of Diagnosis: ~1999 Last HbA1c: Hemoglobin A1C (%) Date Value 05/12/2023 8.9 04/02/2021 8.4 08/22/2020 7.9 05/16/2020 8.4 10/06/2019 7.8 03/22/2019 8.1 Hemoglobin A1C (POCT) (%) Date Value 07/08/2024 6.9 03/02/2024 7.6 11/14/2023 7.3 01/03/2023 8.9 08/09/2022 7.9 Family history of diabetes: father and maternal [...] cocoa 11-12 PM: Dinner 2 slices of vincentian cheese and ham, Glucerna 5-6 PM: Supper: biggest meal SMBG Frequency of Monitoring: Three times a Day BG Values: 2 week average 167 Hypoglycemia Frequency: none Current DM Related Medications: Current Medications 07/08/2024 DIABETES THERAPIES Medication Dosage Pharm Subclass FARXIGA 10 mg tablet TAKE 1 TABLET BY MOUTH DAILY WITH BREAKFAST Antihyperglycemic - Sodium Glucose Cotransporter-2 (SGLT2) Inhibitors NOVOLOG MIX 70-30 100 unit/mL [...] FOR IMPLANTED VASCULAR ACCESS DEVICE (IVAD) FLUSH. AMBULATORY/OUTPATIENT: PLEASE REORDER UPON HOSPITAL DISCHARGE May [...] Adjuvant - Parenteral Vehicles blood sugar diagnostic (BLOOD GLUCOSE TEST) test strip Check glucose 3 times daily Dx: E11.65 Medical Supplies and DME - Blood Glucose Tests Blood-Glucose Meter (TRUE METRIX GLUCOSE METER) Check glucose 3 times daily Dx: E11.65 Medical Supplies and DME - Glucose Monitoring Test Supplies qpbecsw-umdftlgxr-djdluze D3 (OS-BESSY 500+D) 500 mg(1,250mg) -200 unit [...] Take 20 mg by mouth once daily. Antidepressa (more content not included)... Normal [facility] GLOOKO ON DEMANDon Ordered by an unspec ified provider. [facility] HEMOGLOBIN A1C (POC)on 07-08 HbA1c (Bld) [Mass fraction] 6.9 % Abnormal 4.3 - 5.6 % [facility] Comment on above: Location:[facility], [address] [place], [place], [address] Point of care (POC) Hemoglobin A1c (HGBA1C) [...] specific diabetes management situations: The POC device tax commissioner provides a normal range of 4.2% to 6.5% for the HGBA1C POC test. However, the [employer] Diabetes [employer] guidelines indicate that patients with [...] anemia) that alter red blood cell lifespan. Interpretation and review of laboratory results Abnormal [facility] CBC W Auto Differential pane l (Bld)on 06-29-2024 Basophils (Bld) [#/Vol] 0.06 10*3/uL [facility] Basophils/100 WBC (Bld) 0.6 % [facility] Differential cell count method Nom (Bld) Auto [facility] Eosinophils (Bld) [#/Vol] 0.46 10*3/uL High [facility] Eosinophils/100 WBC (Bld) 4.9 % [facility] Erythrocyte distribution width (RBC) [Ratio] 13.7 % 11.5 - 15.0 % [facility] Hematocrit (Bld) [Volume fraction] 35.7 % Low 39.0 - 51.0 % [facility] Hemoglobin (Bld) [Mass/Vol] 12.2 g/dL Low 13.0 - 17.0 g/dL [facility] Immature granulocytes (Bld) [#/Vol] 0.04 10*3/[facility] Immature granulocytes/100 WBC (Bld) 0.4 % [facility] Interpretation and review of laboratory results Abnormal [facility] Lymphocytes (Bld) [#/Vol] 1.73 10*3/uL [facility] Lymphocytes/100 WBC (Bld) 18.5 % [facility] MCH (RBC) [Entitic mass] 33.5 pg 26.0 - 34.0 pg [facility] MCHC (RBC) [Mass/Vol] 34.2 g/dL 30.5 - 36.0 g/dL [facility] MCV (RBC) [Entitic vol] 98.1 fL 80.0 - 100.0 fL [facility] Monocytes (Bld) [#/Vol] 0.96 10*3/uL High NINF [facility] Monocytes/100 WBC (Bld) 10.3 % [facility] Neutrophils (Bld) [#/Vol] 6.09 10*3/uL [facility] Neutrophils/100 WBC (Bld) 65.3 % [facility] Nucleated RBC (Bld) [#/Vol] NINF [facility] Nucleated RBC/100 WBC (Bld) [Ratio] 0 % /100 WBC [facility] Platelet mean volume (Bld) [Entitic vol] 9.2 fL 9.0 - 12.7 fL [facility] Platelets (Bld) [#/Vol] 255 10*3/uL [facility] RBC (Bld) [#/Vol] 3.64 10*6/uL Low 4.20 - 6.00 m/uL [facility] WBC (Bld) [#/Vol] 9.34 10*3/uL [facility] Basophils (Bld) [#/Vol] 0.06 10*3/uL Normal <0.11 [facility] Comment on above: Order Comment: Speci men Type: BLOOD SPECIMENOrdering Facility: [facility] Address: [address] [place] [address] Performed By: #### 5 7021-8 ####[facility] LABCLIA [id number] [place] [address] Basophils/100 WBC (Bld) 0.6 % Normal [facility] Comment on above: Order Comment: Speci men Type: BLOOD SPECIMENOrdering Facility: [facility] Address: [address] [place] [address] Performed By: #### 5 7021-8 ####[facility] LABCLIA [id number] [place] [address] Differential cell count method Nom (Bld) Auto Normal [facility] Comment on above: Order Comment: Speci men Type: BLOOD SPECIMENOrdering Facility: [facility] Address: [address] [place] [address] Performed By: #### 5 7021-8 ####[facility] LABCLIA [id number] [place] [address] Eosinophils (Bld) [#/Vol] 0.46 10*3/uL High <0.46 [facility] Comment on above: Order Comment: Speci men Type: BLOOD SPECIMENOrdering Facility: [facility] Address: [address] [place] [address] Performed By: #### 5 7021-8 ####[facility] LABCLIA [id number] [place] [address] Eosinophils/100 WBC (Bld) 4.9 % Normal [facility] Comment on above: Order Comment: Speci men Type: BLOOD SPECIMENOrdering Facility: [facility] Address: [address] [place] [address] Performed By: #### 5 7021-8 ####[facility] LABCLIA [id number] [place] [address] Erythrocyte distribution width (RBC) [Ratio] 13.7 % Normal 11.5-15.0 [facility] Comment on above: Order Comment: Speci men Type: BLOOD SPECIMENOrdering Facility: [facility] Address: [address] [place] [address] Performed By: #### 5 7021-8 ####[facility] LABCLIA [id number] [place] [address] Hematocrit (Bld) [Volume fraction] 35.7 % Low 39.0-51.0 [facility] Comment on above: Order Comment: Speci men Type: BLOOD SPECIMENOrdering Facility: [facility] Address: [address] [place] [address] Performed By: #### 5 7021-8 ####[facility] LABCLIA [id number] [place] [address] Hemoglobin (Bld) [Mass/Vol] 12.2 g/dL Low 13.0-17.0 [facility] Comment on above: Order Comment: Speci men Type: BLOOD SPECIMENOrdering Facility: [facility] Address: [address] [place] [address] Performed By: #### 5 7021-8 ####[facility] LABCLIA [id number] [place] [address] Immature granulocytes (Bld) [#/Vol] 0.04 10*3/uL Normal <0.10 [facility] Comment on above: Order Comment: Speci men Type: BLOOD SPECIMENOrdering Facility: [facility] Address: [address] [place] [address] Performed By: #### 5 7021-8 ####[facility] LABCLIA [id number] [place] [address] Immature granulocytes/100 WBC (Bld) 0.4 % Normal [facility] Comment on above: Order Comment: Speci men Type: BLOOD SPECIMENOrdering Facility: [facility] Address: [address] [place] [address] Performed By: #### 5 7021-8 ####[facility] LABCLIA [id number] [place] [address] Lymphocytes (Bld) [#/Vol] 1.73 10*3/uL Normal 1.00-4.00 [facility] Comment on above: Order Comment: Speci men Type: BLOOD SPECIMENOrdering Facility: [facility] Address: [address] [place] [address] Performed By: #### 5 7021-8 ####[facility] LABCLIA [id number] [place] [address] Lymphocytes/100 WBC (Bld) 18.5 % Normal [facility] Comment on above: Order Comment: Speci men Type: BLOOD SPECIMENOrdering Facility: [facility] Address: [address] [place] [address] Performed By: #### 5 7021-8 ####[facility] LABCLIA [id number] [place] [address] MCH (RBC) [Entitic mass] 33.5 pg Normal 26.0-34.0 [facility] Comment on above: Order Comment: Speci men Type: BLOOD SPECIMENOrdering Facility: [facility] Address: [address] [place] [address] Performed By: #### 5 7021-8 ####[facility] LABCLIA [id number] [place] [address] MCHC (RBC) [Mass/Vol] 34.2 g/dL Normal 30.5-36.0 [facility] Comment on above: Order Comment: Speci men Type: BLOOD SPECIMENOrdering Facility: [facility] Address: [address] [place] [address] Performed By: #### 5 7021-8 ####[facility] LABIA [id number] [place] [address] MCV (RBC) [Entitic vol] 98.1 fL Normal 80.0-100.[address] [facility] Comment on above: Order Comment: Speci men Type: BLOOD SPECIMENOrdering Facility: [facility] Address: [address] [place] [address] Performed By: #### 5 7021-8 ####[facility] LABCLIA [id number] [place] [address] Monocytes (Bld) [#/Vol] 0.96 10*3/uL High <0.87 [facility] Comment on above: Order Comment: Speci men Type: BLOOD SPECIMENOrdering Facility: [facility] Address: [address] [place] [address] Performed By: #### 5 7021-8 ####[facility] LABIA [id number] [place] [address] Monocytes/100 WBC (Bld) 10.3 % Normal [facility] Comment on above: Order Comment: Speci men Type: BLOOD SPECIMENOrdering Facility: [facility] Address: [address] [place] [address] Performed By: #### 5 7021-8 ####[facility] LABCLIA [id number] [place] [address] Neutrophils (Bld) [#/Vol] 6.09 10*3/uL Normal 1.45-7.50 [facility] Comment on above: Order Comment: Speci men Type: BLOOD SPECIMENOrdering Facility: [facility] Address: [address] [place] [address] Performed By: #### 5 7021-8 ####[facility] LABCLIA [id number] [place] [address] Neutrophils/100 WBC (Bld) 65.3 % Normal [facility] Comment on above: Order Comment: Speci men Type: BLOOD SPECIMENOrdering Facility: [facility] Address: [address] [place] [address] Performed By: #### 5 7021-8 ####[facility] LABCLIA [id number] [place] [address] Nucleated RBC (Bld) [#/Vol] 10*3/uL Normal <0.01 [facility] Comment on above: Order Comment: Speci men Type: BLOOD SPECIMENOrdering Facility: [facility] Address: [address] [place] [address] Performed By: #### 5 7021-8 ####[facility] LABCLIA [id number] [place] [address] Nucleated RBC/100 WBC (Bld) [Ratio] 0.0 /100 WBC Normal [facility] Comment on above: Order Comment: Speci men Type: BLOOD SPECIMENOrdering Facility: [facility] Address: [address] [place] [address] Performed By: #### 5 7021-8 ####[facility] LABCLIA [id number] [place] [address] Platelet mean volume (Bld) [Entitic vol] 9.2 fL Normal 9.0-12.7 [facility] Comment on above: Order Comment: Speci men Type: BLOOD SPECIMENOrdering Facility: [facility] Address: [address] [place] [address] Performed By: #### 5 7021-8 ####[facility] LABIA [id number] [place] [address] Platelets (Bld) [#/Vol] 255 10*3/uL Normal 150-400 [facility] Comment on above: Order Comment: Speci men Type: BLOOD SPECIMENOrdering Facility: [facility] Address: [address] [place] [address] Performed By: #### 5 7021-8 ####[facility] [id number] [place] [address] RBC (Bld) [#/Vol] 3.64 10*6/uL Low 4.20-6.00 [facility] Comment on above: Order Comment: Speci men Type: BLOOD SPECIMENOrdering Facility: [facility] Address: [address] [place] [address] Performed By: #### 5 7021-8 ####[facility] LABIA [id number] [place] [address] WBC (Bld) [#/Vol] 9.34 10*3/uL Normal 3.70-11.00 [facility] Comment on above: Order Comment: Speci men Type: BLOOD SPECIMENOrdering Facility: [facility] Address: [address] [place] [address] Performed By: #### 5 7021-8 ####[facility] LABIA [id number] [place] [address] CNOVSPon 06-29-2024 CNOVSP Visit (SP) Office ([facility]) -- JAMEL BONDS ([id number]) 1935 M Date Time Provider Department 06/29/24 10:30 AM LORENA FREY During your visit today, we recorded the following information about you: Temperature Pulse Respiration Blood pressure 97.3 degrees 60/minute 18/minute 131/68 Weight 81.9 kg Lorena Frey APRN.CARDING SUPERVISOR 06/30/2024 8:39 AM Signed NAME: Jamel Bonds CLINIC NO.: [id number] DATE OF SERVICE: June 29, 2024 (Shante) Some elements in this clinic note that are critical to medical decision making have been carefully reviewed and included from a prior clinic note dated: April 20, 2024 (Juan) Referring Provider: Additional Clinicians involved in Jamel Bonds's care: DIAGNOSIS: Prostate cancer with biochemical relapse, history of diffuse large B-cell lymphoma. ASSESSMENT: Metastatic castrate sensitive prostate cancer. We've had many discussions about the natural history of prostate cancer and the role of androgen deprivation. He has had rising PSA with a prior history of seed implantation he has not been interested in ADT since. We have had multiple discussions on this but he remains sexually active and is maintaining interest in this. LUTS was improving with Flomax but going 3-4 x/ night. CT's show no evidence of measurable disease. PSA decreased - off Lupron and then has begun to increase. PSMA scan in June 2023 shows prostatic involvement with invasion into seminal vesicles. PLAN: Lupron q 6 months - Due today RTC in 3 months Labs with port same day 3. Obtain hospital records from [facility]. _- HPI: CASE HISTORY: Reverse Chronological Order 06/29/2024 - PSA: 0.61 04/20/2024 - PSA: 0.36 12/29/2023 - PSA: 1.16 12/01/2023 - PSA: 1.38 09/08/2023 - PSA: 1.34 07/07/2023-Current - Lupron 45mg q 6 months 07/03/2023 - PSMA PET: HEAD/NECK, CHEST, MUSCULOSKELETAL: No PSMA expressing neoplastic process. ABDOMENS/PELVIS: PSMA avid uptake at the peripheral zone of the prostate gland with possible extension to the right seminal vesicle, suspicious for neoplasm. No PSMA expressing neoplastic process elsewhere. 05/12/2023 - PSA: 5.31 11/11/2022 - PSA: 0.31 05/10/2022 - PSA: 0.89 02/08/2022-05/10/2022 - Lupron 22.5mg x2 - held due to intolerance 01/11/2022 - PSA: 63.27 02/19/2021 - PSA: 51.4 01/27/2020 - CT N/CAP: Neck: No soft tissue mass or fluid collection. No acute findings. No malignant or metastatic disease. 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 He also has mild narrowing of the carotid bifurcation bilaterally. Chest: No malignant or metastatic disease. No acute cardiopulmonary disease. A/P: Lung bases are unremarkable. No malignant or metastatic disease. There is hepatic steatosis. 06/14/2019 - PSA: 46.35 06/09/2018 - PSA: 35.81 11/26/2017 - Bone scan: Multiple foci of increased activity right anterior and posterior ribs, metastatic disease is suspected 05/14/2017 - PSA: 33.96 01/21/2017 - PET/CT Unremarkable glucometabolic appearance, stable since 02/15/2015. NECK: No FDG avid neoplastic process. No hypermetabolic mass, adenopathy, or fluid collection. CHEST: No FDG avid neoplastic process. No hypermetabolic mass, adenopathy, or fluid collection. ABDOMEN/PELVIS: No FDG avid neoplastic process. No hypermetabolic mass, adenopathy, or fluid collection. EXTREMITIES/SKELETON: No FDG avid osseous process. 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 He is due for Lupron today. He denies any problems with the Lupron. He denies any hot flashes. He is urinating well. No pain, burning or difficulty with urination. He denies any unusual bone pain. He is due for another ablation in his lower back. He has chronic arthritis. He follows with [facility], Dr. Ervin. He denies any lumps or bumps. No enlarged lymph nodes. No fevers, chills, night sweats or signs/symptoms of infection. No unintentional weight loss. His main complaint is that he sleeps a lot. His states that he could sleep 20+ hours a day. Patient's states that he was recently treated for elevated potassium at the [facility]. Updated Visit, April 20, 2024: Jerel returns with his , Milagros. He remains fatigued and endorses hot flashes due to Lupron, denies pain or appetite changes. He has gained 9lbs si (more content not included)... Normal [facility] Comprehensive metabolic 2000 panelOrdered By: Adilia Joyce on 06-29-2024 Albumin [Mass/Vol] 4 g/dL 3.9 - 4.9 g/dL [facility] ALP [Catalytic activity/Vol] 75 U/L 38 - 113 U/L [facility] ALT [Catalytic activity/Vol] 14 U/L 10 - 54 U/L [facility] Anion gap [Moles/Vol] 10 mmol/L 8 - 15 mmol/L [facility] AST [Catalytic activity/Vol] 17 U/L 14 - 40 U/L [facility] Bilirubin [Mass/Vol] 0.6 mg/dL 0.2 - 1 .3 mg/dL [facility] Calcium [Mass/Vol] 9.5 mg/dL 8.5 - 10. 2 mg/dL [facility] Chloride [Moles/Vol] 101 mmol/L 98 - 10 7 mmol/L [facility] CO2 [Moles/Vol] 27 mmol/L 22 - 30 mmol/L [facility] Creatinine [Mass/Vol] 1.68 mg/dL High 0.73 - 1.22 mg/dL [facility] GFR/1.73 sq M.predicted among non-blacks MDRD (S/P/Bld) [Vol rate/Area] 39 mL/min/{1.73_m2} Low - PINF [facility] Comment on above: Estimated Glomerular Filtration Rate (eGFR) is calculated using the 2020 CKD-EPI creatinine equation. This equation utilizes serum creatinine, sex, and age as parameters. The creatinine assay has traceable calibration to isotope dilution-mass spectrometry. Refer to KDIGO guidelines for clinical interpretation. In patients with unstable renal function, e.g. those with acute kidney injury, the eGFR may not accurately reflect actual GFR. Glucose [Mass/Vol] 161 mg/dL High 74 - 99 mg/dL [facility] Comment on above: The [place] Diabete s Association (ADA) provides guidance for cutoff values for fasting glucose and random glucose. The ADA defines fasting as no caloric intake for at least 8 hours. Fasting plasma glucose results between 100 to 125 mg/dL indicate increased risk for diabetes (prediabetes). Fasting plasma glucose results greater than or equal to 126 mg/dL meet the criteria for diagnosis of diabetes. In the absence of unequivocal hyperglycemia, results should be confirmed by repeat testing. In a patient with classic symptoms of hyperglycemia or hyperglycemic crisis, random plasma glucose results greater than or equal to 200 mg/dL meet the criteria for diagnosis of diabetes. Reference: Standards of Medical Care in Diabetes 2016, [place] Diabetes Association. Diabetes Care. 2016.39(Suppl 1). Interpretation and review of laboratory results Abnormal [facility] Potassium [Moles/Vol] 4.7 mmol/L 3.7 - 5.1 mmol/L [facility] Protein [Mass/Vol] 6.8 g/dL 6.3 - 8.0 g/dL [facility] Sodium [Moles/Vol] 138 mmol/L 136 - 144 mmol/L [facility] Urea nitrogen [Mass/Vol] 36 mg/dL High 9 - 24 mg/dL [facility] Comprehensive metabolic 2000 panelon 06-29-2024 Albumin [Mass/Vol] 4.0 g/dL Normal 3.9-4.9 [facility] Comment on above: Order Comment: Speci men Type: BLOOD SPECIMENOrdering Facility: [facility] Address: [address] [place] [address] Performed By: #### 2 4323-8 ####[facility] LABCLIA [id number] [place] [address] ALP [Catalytic activity/Vol] 75 U/L Normal 38-113 [facility] Comment on above: Order Comment: Speci men Type: BLOOD SPECIMENOrdering Facility: [facility] Address: [address] [place] [address] Performed By: #### 2 4323-8 ####[facility] LABCLIA [id number] [place] [address] ALT [Catalytic activity/Vol] 14 U/L Normal 10-54 [facility] Comment on above: Order Comment: Speci men Type: BLOOD SPECIMENOrdering Facility: [facility] Address: [address] [place] [address] Performed By: #### 2 4323-8 ####[facility] LABCLIA [id number] [place] [address] Anion gap [Moles/Vol] 10 mmol/L Normal 8-15 [facility] Comment on above: Order Comment: Speci men Type: BLOOD SPECIMENOrdering Facility: [facility] Address: [address] [place] [address] Performed By: #### 2 4323-8 ####[facility] LABCLIA [id number] [place] [address] AST [Catalytic activity/Vol] 17 U/L Normal 14-40 [facility] Comment on above: Order Comment: Speci men Type: BLOOD SPECIMENOrdering Facility: [facility] Address: [address] [place] [address] Performed By: #### 2 4323-8 ####[facility] LABCLIA [id number] [place] [address] Bilirubin [Mass/Vol] 0.6 mg/dL Normal 0.2-1.3 [facility] Comment on above: Order Comment: Speci men Type: BLOOD SPECIMENOrdering Facility: [facility] Address: [address] [place] [address] Performed By: #### 2 4323-8 ####[facility] LABCLIA [id number] [place] [address] Calcium [Mass/Vol] 9.5 mg/dL Normal 8.5-10.2 [facility] Comment on above: Order Comment: Speci men Type: BLOOD SPECIMENOrdering Facility: [facility] Address: [address] [place] [address] Performed By: #### 2 4323-8 ####[facility] LABCLIA [id number] [place] [address] Chloride [Moles/Vol] 101 mmol/L Normal 98-107 [facility] Comment on above: Order Comment: Speci men Type: BLOOD SPECIMENOrdering Facility: [facility] Address: [address] [place] [address] Performed By: #### 2 4323-8 ####[facility] LABCLIA [id number] [place] [address] CO2 [Moles/Vol] 27 mmol/L Normal 22-30 [facility] Comment on above: Order Comment: Speci men Type: BLOOD SPECIMENOrdering Facility: [facility] Address: [address] [place] [address] Performed By: #### 2 4323-8 ####[facility] LABCLIA [id number] [place] [address] Creatinine [Mass/Vol] 1.68 mg/dL High 0.73-1.22 [facility] Comment on above: Order Comment: Speci men Type: BLOOD SPECIMENOrdering Facility: [facility] Address: [address] [place] [address] Performed By: #### 2 4323-8 ####[facility] LABCLIA [id number] [place] [address] Creatinine and Glomerular filtration rate.predicted panel (S/P/Bld) 39 mL/min/1.73m??? Low >=60 [facility] Comment on above: Order Comment: Speci gabbie Type: BLOOD SPECIMENOrdering Facility: [facility] Address: [address] [place] [address] Result Comment: Vero mated Glomerular Filtration Rate (eGFR) is calculated using the 2020 CKD-EPI creatinine equation. This equation utilizes serum creatinine, sex, and age as parameters. The creatinine assay has traceable calibration to isotope dilution-mass spectrometry. Refer to KDIGO guidelines for clinical interpretation. In patients with unstable renal function, e.g. those with acute kidney injury, the eGFR may not accurately reflect actual GFR. Performed By: #### 2 4323-8 ####[facility] LABCLIA [id number] [place] [address] Glucose [Mass/Vol] 161 mg/dL High 74-99 [facility] Comment on above: Order Comment: Marilyn cartwright Type: BLOOD SPECIMENOrdering Facility: [facility] Address: [address] [place] [address] Result Comment: The [place] Diabetes Association (ADA) provides guidance for cutoff values for fasting glucose and random glucose. The ADA defines fasting as no caloric intake for at least 8 hours. Fasting plasma glucose results between 100 to 125 mg/dL indicate increased risk for diabetes (prediabetes). Fasting plasma glucose results greater than or equal to 126 mg/dL meet the criteria for diagnosis of diabetes. In the absence of unequivocal hyperglycemia, results should be confirmed by repeat testing. In a patient with classic symptoms of hyperglycemia or hyperglycemic crisis, random plasma glucose results greater than or equal to 200 mg/dL meet the criteria for diagnosis of diabetes. Reference: Standards of Medical Care in Diabetes 2016, [place] Diabetes Association. Diabetes Care. 2016.39(Suppl 1). Performed By: #### 2 4323-8 ####[facility] LABCLIA [id number] [place] [address] Potassium [Moles/Vol] 4.7 mmol/L Normal 3.7-5.1 [facility] Comment on above: Order Comment: Speci men Type: BLOOD SPECIMENOrdering Facility: [facility] Address: [address] [place] [address] Performed By: #### 2 4323-8 ####[facility] LABCLIA [id number] [place] [address] Protein [Mass/Vol] 6.8 g/dL Normal 6.3-8.0 [facility] Comment on above: Order Comment: Speci men Type: BLOOD SPECIMENOrdering Facility: [facility] Address: [address] [place] [address] Performed By: #### 2 4323-8 ####[facility] LABCLIA [id number] [place] [address] Sodium [Moles/Vol] 138 mmol/L Normal 136-144 [facility] Comment on above: Order Comment: Speci men Type: BLOOD SPECIMENOrdering Facility: [facility] Address: [address] [place] [address] Performed By: #### 2 4323-8 ####[facility] LABCLIA [id number] [place] [address] Urea nitrogen [Mass/Vol] 36 mg/dL High 9-24 [facility] Comment on above: Order Comment: Speci men Type: BLOOD SPECIMENOrdering Facility: [facility] Address: [address] [place] [address] Performed By: #### 2 4323-8 ####[facility] LABCLIA [id number] [place] [address] PSA [facility] Prostate specific Ag [Mass/Vol] 0.61 ng/mL Normal <2.60 [facility] Comment on above: Order Comment: Speci men Type: BLOOD SPECIMENOrdering Facility: [facility] Address: [address] [place] [address] Result Comment: Tota l PSA test methodology used is the Electrochemiluminescence Immunoassay by [employer]. Total PSA values by differing methodologies cannot be interchanged. Performed By: #### 2 857-1 ####[facility] LABCLIA [id number] [facility]ENTERAlicia [facility] [id number] [place], [place] [id number] [place] B-Type Natriuretic Peptideon 05-07-2024 Natriuretic peptide B (Bld) [Mass/Vol] 219.0 pg/mL High 5-100 [facility] Comment on above: Result Comment: PERF ORMED BY: [place] [address] PATHOLOGIST TELESALES SUPERVISOR AKIKO BREAUX M.D. Performed By: #### B MILL WORKER, DIG, BMP #### [address] Basic Metabolic Panelon 04-24 Anion gap [Moles/Vol] 11.3 mmol/L Normal 6.0-15.0 [facility] Comment on above: Performed By: #### B MILL WORKER, DIG, BMP #### [address] Calcium [Mass/Vol] 9.5 mg/dL Normal 8.6-10.3 [facility] Comment on above: Result Comment: PERF ORMED BY: [place] [address] PATHOLOGIST TELESALES SUPERVISOR AKIKO BREAUX M.D. Performed By: #### B MILL WORKER, DIG, BMP #### [address] Chloride [Moles/Vol] 97 mmol/L Low 98-107 [facility] Comment on above: Performed By: #### B MILL WORKER, DIG, BMP #### [address] CO2 [Moles/Vol] 34.3 mmol/L High 21.0-31.0 [facility] Comment on above: Performed By: #### B MILL WORKER, DIG, BMP #### [address] Creatinine [Mass/Vol] 1.83 mg/dL High 0.70-1.30 [facility] Comment on above: Performed By: #### B MILL WORKERLUIS, BMP #### [address] Estimated GFR 35.274 mL/Min Normal [facility] Comment on above: Performed By: #### B MILL WORKERLUIS, BMP #### [address] Glucose [Mass/Vol] 111 mg/dL High 70-100 [facility] Comment on above: Result Comment: [facility] Glucose Reference Range is dependent on time and content of last meal. Glucose of more than 200 mg/dL in a nonstressed, ambulatory subject supports the diagnosis of Diabetes Mellitus. ADA recommended reference range Performed By: #### B MILL WORKERLUIS, BMP #### [address] Potassium [Moles/Vol] 4.6 mmol/L Normal 3.5-5.1 [facility] Comment on above: Performed By: #### B MILL WORKERLUIS BMP #### [address] Sodium [Moles/Vol] 138 mmol/L Normal 136-145 [facility] Comment on above: Performed By: #### B MILL WORKERLUIS, BMP #### [address] Urea nitrogen [Mass/Vol] 38 mg/dL High 7-25 [facility] Comment on above: Performed By: #### B MILL WORKERLUIS, BMP #### [address] Calcium [Mass/volume] in Ser um or PlasmaOrdered By: David Jackson on 05-07-2024 Calcium [Mass/Vol] Calcium [Mass/volume ] in Serum or Plasma 8.6-10.3 [facility] Carbon dioxide, total [Moles /volume] in Serum or PlasmaOrdered By: David Jackson on 05-07-2024 CO2 [Moles/Vol] Carbon dioxide, tota l [Moles/volume] in Serum or Plasma High 21.0-31.0 [facility] Chloride [Moles/volume] in S taisha or PlasmaOrdered By: David Jackson on 05-07-2024 Chloride [Moles/Vol] Chloride [Moles/vol ume] in Serum or Plasma Low 98-107 [facility] Creatinine [Mass/volume] in Serum or PlasmaOrdered By: David Jackson on 05-07-2024 Creatinine [Mass/Vol] Creatinine [Mass/v olume] in Serum or Plasma High 0.70-1.30 [facility] Digoxinon 05-07-2024 Digoxin [Mass/Vol] 0.8 ng/mL Low 0.9-2.0 [facility] Comment on above: Result Comment: Last dose: - PERFORMED BY: [place] [address] PATHOLOGIST TELESALES SUPERVISOR AKIKO BREAUX M.D. Performed By: #### B MILL WORKER, DIG, BMP #### [address] Digoxin [Mass/volume] in Ser um or PlasmaOrdered By: David Jackson on 05-07-2024 Digoxin [Mass/Vol] Digoxin [Mass/volume ] in Serum or Plasma Low 0.9-2.0 [facility] Comment on above: Last dose: - Glucose [Mass/volume] in Ser um or PlasmaOrdered By: David Jackson on 05-07-2024 Glucose [Mass/Vol] Glucose [Mass/volume ] in Serum or Plasma High 70-100 [facility] Comment on above: ADA recommended refe rence rangeRandom Glucose Reference Range is dependent on time and content of last meal. Glucose of more than 200 mg/dL in a nonstressed, ambulatory subject supports the diagnosis of Diabetes Mellitus. Natriuretic peptide B [Mass/ Vol]Ordered By: David Jackson on 05-07-2024 Natriuretic peptide B (Bld) [Mass/Vol] BNP ser/plas High 5-100 [facility] No Panel InformationOrdered By: David Jackson on 05-07-2024 Estimated GFR (CKD-EPI) 35.274 mL/Min [facility] Creatinine Clearance (Chem N/A [facility] Potassium [Moles/volume] in Serum or PlasmaOrdered By: David Jackson on 05-07-2024 Potassium [Moles/Vol] Potassium [Moles/v olume] in Serum or Plasma 3.5-5.1 [facility] Serum or plasma anion gap de terminationOrdered By: David Jackson on 05-07-2024 Anion gap [Moles/Vol] Serum or plasma an ion gap determination 6.0-15.0 [facility] Sodium [Moles/volume] in Ser um or PlasmaOrdered By: David Jackson on 05-07-2024 Sodium [Moles/Vol] Sodium [Moles/volume ] in Serum or Plasma 136-145 [facility] Urea nitrogen [Mass/volume] in Serum or PlasmaOrdered By: David Jackson on 05-07-2024 Urea nitrogen [Mass/Vol] Urea nitrogen [Mass/volume] in Serum or Plasma High 7-25 [facility] CBC W Auto Differential pane l (Bld)on 04-20-2024 Basophils (Bld) [#/Vol] 0.06 10*3/uL [facility] Basophils/100 WBC (Bld) 0.7 % [facility] Differential cell count method Nom (Bld) Auto [facility] Eosinophils (Bld) [#/Vol] 0.38 10*3/uL [facility] Eosinophils/100 WBC (Bld) 4.3 % [facility] Erythrocyte distribution width (RBC) [Ratio] 14.6 % 11.5 - 15.0 % [facility] Hematocrit (Bld) [Volume fraction] 36.1 % Low 39.0 - 51.0 % [facility] Hemoglobin (Bld) [Mass/Vol] 12.1 g/dL Low 13.0 - 17.0 g/dL [facility] Immature granulocytes (Bld) [#/Vol] 0.06 10*3/uL [facility] Immature granulocytes/100 WBC (Bld) 0.7 % [facility] Interpretation and review of laboratory results Abnormal [facility] Lymphocytes (Bld) [#/Vol] 1.73 10*3/uL [facility] Lymphocytes/100 WBC (Bld) 19.7 % [facility] MCH (RBC) [Entitic mass] 32.1 pg 26.0 - 34.0 pg [facility] MCHC (RBC) [Mass/Vol] 33.5 g/dL 30.5 - 36.0 g/dL [facility] MCV (RBC) [Entitic vol] 95.8 fL 80.0 - 100.0 fL [facility] Monocytes (Bld) [#/Vol] 0.90 10*3/uL High [facility] Monocytes/100 WBC (Bld) 10.3 % [facility] Neutrophils (Bld) [#/Vol] 5.63 10*3/uL [facility] Neutrophils/100 WBC (Bld) 64.3 % [facility] Nucleated RBC (Bld) [#/Vol] [facility] Nucleated RBC/100 WBC (Bld) [Ratio] 0.0 % /100 WBC [facility] Platelet mean volume (Bld) [Entitic vol] 9.9 fL 9.0 - 12.7 fL [facility] Platelets (Bld) [#/Vol] 222 10*3/uL [facility] RBC (Bld) [#/Vol] 3.77 10*6/uL Low 4.20 - 6.00 m/uL [facility] WBC (Bld) [#/Vol] 8.76 10*3/uL [facility] Basophils (Bld) [#/Vol] 0.06 10*3/uL Normal <0.11 [facility] Comment on above: Order Comment: Speci men Type: BLOOD SPECIMENOrdering Facility: [facility] Address: [address] [place] [address] Performed By: #### 5 7021-8 ####[facility] LABCLIA [id number] [place] [address] Basophils/100 WBC (Bld) 0.7 % Normal [facility] Comment on above: Order Comment: Speci men Type: BLOOD SPECIMENOrdering Facility: [facility] Address: [address] [place] [address] Performed By: #### 5 7021-8 ####[facility] LABCLIA [id number] [place] [address] Differential cell count method Nom (Bld) Auto Normal [facility] Comment on above: Order Comment: Speci men Type: BLOOD SPECIMENOrdering Facility: [facility] Address: [address] [place] [address] Performed By: #### 5 7021-8 ####[facility] LABCLIA [id number] [place] [address] Eosinophils (Bld) [#/Vol] 0.38 10*3/uL Normal <0.46 [facility] Comment on above: Order Comment: Speci men Type: BLOOD SPECIMENOrdering Facility: [facility] Address: [address] [place] [address] Performed By: #### 5 7021-8 ####[facility] LABCLIA [id number] [place] [address] Eosinophils/100 WBC (Bld) 4.3 % Normal [facility] Comment on above: Order Comment: Speci men Type: BLOOD SPECIMENOrdering Facility: [facility] Address: [address] [place] [address] Performed By: #### 5 7021-8 ####[facility] LABCLIA [id number] [place] [address] Erythrocyte distribution width (RBC) [Ratio] 14.6 % Normal 11.5-15.0 [facility] Comment on above: Order Comment: Speci men Type: BLOOD SPECIMENOrdering Facility: [facility] Address: [address] [place] [address] Performed By: #### 5 7021-8 ####[facility] LABCLIA [id number] [place] [address] Hematocrit (Bld) [Volume fraction] 36.1 % Low 39.0-51.0 [facility] Comment on above: Order Comment: Speci men Type: BLOOD SPECIMENOrdering Facility: [facility] Address: [address] [place] [address] Performed By: #### 5 7021-8 ####[facility] LABCLIA [id number] [place] [address] Hemoglobin (Bld) [Mass/Vol] 12.1 g/dL Low 13.0-17.0 [facility] Comment on above: Order Comment: Speci men Type: BLOOD SPECIMENOrdering Facility: [facility] Address: [address] [place] [address] Performed By: #### 5 7021-8 ####[facility] LABCLIA [id number] [place] [address] Immature granulocytes (Bld) [#/Vol] 0.06 10*3/uL Normal <0.10 [facility] Comment on above: Order Comment: Speci men Type: BLOOD SPECIMENOrdering Facility: [facility] Address: [address] [place] [address] Performed By: #### 5 7021-8 ####[facility] LABCLIA [id number] [place] [address] Immature granulocytes/100 WBC (Bld) 0.7 % Normal [facility] Comment on above: Order Comment: Speci men Type: BLOOD SPECIMENOrdering Facility: [facility] Address: [address] [place] [address] Performed By: #### 5 7021-8 ####[facility] LABCLIA [id number] [place] [address] Lymphocytes (Bld) [#/Vol] 1.73 10*3/uL Normal 1.00-4.00 [facility] Comment on above: Order Comment: Speci men Type: BLOOD SPECIMENOrdering Facility: [facility] Address: [address] [place] [address] Performed By: #### 5 7021-8 ####[facility] LABCLIA [id number] [place] [address] Lymphocytes/100 WBC (Bld) 19.7 % Normal [facility] Comment on above: Order Comment: Speci men Type: BLOOD SPECIMENOrdering Facility: [facility] Address: [address] [place] [address] Performed By: #### 5 7021-8 ####[facility] LABCLIA [id number] [place] [address] MCH (RBC) [Entitic mass] 32.1 pg Normal 26.0-34.0 [facility] Comment on above: Order Comment: Speci men Type: BLOOD SPECIMENOrdering Facility: [facility] Address: [address] [place] [address] Performed By: #### 5 7021-8 ####[facility] LABCLIA [id number] [place] [address] MCHC (RBC) [Mass/Vol] 33.5 g/dL Normal 30.5-36.0 [facility] Comment on above: Order Comment: Speci men Type: BLOOD SPECIMENOrdering Facility: [facility] Address: [address] [place] [address] Performed By: #### 5 7021-8 ####[facility] LABCLIA [id number] [place] [address] MCV (RBC) [Entitic vol] 95.8 fL Normal 80.0-100.[address] [facility] Comment on above: Order Comment: Speci men Type: BLOOD SPECIMENOrdering Facility: [facility] Address: [address] [place] [address] Performed By: #### 5 7021-8 ####[facility] LABCLIA [id number] [place] [address] Monocytes (Bld) [#/Vol] 0.90 10*3/uL High <0.87 [facility] Comment on above: Order Comment: Speci men Type: BLOOD SPECIMENOrdering Facility: [facility] Address: [address] [place] [address] Performed By: #### 5 7021-8 ####[facility] LABCLIA [id number] [place] [address] Monocytes/100 WBC (Bld) 10.3 % Normal [facility] Comment on above: Order Comment: Speci men Type: BLOOD SPECIMENOrdering Facility: [facility] Address: [address] [place] [address] Performed By: #### 5 7021-8 ####[facility] LABCLIA [id number] [place] [address] Neutrophils (Bld) [#/Vol] 5.63 10*3/uL Normal 1.45-7.50 [facility] Comment on above: Order Comment: Speci men Type: BLOOD SPECIMENOrdering Facility: [facility] Address: [address] [place] [address] Performed By: #### 5 7021-8 ####[facility] LABCLIA [id number] [place] [address] Neutrophils/100 WBC (Bld) 64.3 % Normal [facility] Comment on above: Order Comment: Speci men Type: BLOOD SPECIMENOrdering Facility: [facility] Address: [address] [place] [address] Performed By: #### 5 7021-8 ####[facility] LABCLIA [id number] [place] [address] Nucleated RBC (Bld) [#/Vol] 10*3/uL Normal <0.01 [facility] Comment on above: Order Comment: Speci men Type: BLOOD SPECIMENOrdering Facility: [facility] Address: [address] [place] [address] Performed By: #### 5 7021-8 ####[facility] LABCLIA [id number] [place] [address] Nucleated RBC/100 WBC (Bld) [Ratio] 0.0 /100 WBC Normal [facility] Comment on above: Order Comment: Speci men Type: BLOOD SPECIMENOrdering Facility: [facility] Address: [address] [place] [address] Performed By: #### 5 7021-8 ####[facility] LABIA [id number] [place] [address] Platelet mean volume (Bld) [Entitic vol] 9.9 fL Normal 9.0-12.7 [facility] Comment on above: Order Comment: Speci men Type: BLOOD SPECIMENOrdering Facility: [facility] Address: [address] [place] [address] Performed By: #### 5 7021-8 ####[facility] LABIA [id number] [place] [address] Platelets (Bld) [#/Vol] 222 10*3/uL Normal 150-400 [facility] Comment on above: Order Comment: Speci men Type: BLOOD SPECIMENOrdering Facility: [facility] Address: [address] [place] [address] Performed By: #### 5 7021-8 ####[facility] LABIA [id number] [place] [address] RBC (Bld) [#/Vol] 3.77 10*6/uL Low 4.20-6.00 [facility] Comment on above: Order Comment: Speci men Type: BLOOD SPECIMENOrdering Facility: [facility] Address: [address] [place] [address] Performed By: #### 5 7021-8 ####[facility] LABIA [id number] [place] [address] WBC (Bld) [#/Vol] 8.76 10*3/uL Normal 3.70-11.00 [facility] Comment on above: Order Comment: Speci men Type: BLOOD SPECIMENOrdering Facility: [facility] Address: [address], [place] [address] Performed By: #### 5 7021-8 ####[facility] LABCLIA [id number] [place] [address] CNOVSPon 04-20-2024 CNOVSP Visit (SP) Office (H EMASA) -- JAMEL BONDS ([id number]) 1935 M Date Time Provider Department 04/20/24 11:20 AM SHAHEEN DIEHL During your visit today, we recorded the following information about you: Temperature Pulse Respiration Blood pressure 97.1 degrees 61/minute 16/minute 139/57 Weight Height 84.4 kg 1.727 m Barby Sanabria 04/20/2024 11:19 AM Signed Triage to call with today's lab results Lupron q 6 months - due on 06/21/2024 RTC in 9 weeks Labs with port same day Lupron due same day Shaheen Diehl MD 04/21/2024 8:52 AM Signed NAME: Jamel Bonds CLINIC NO.: [id number] DATE OF SERVICE: April 20, 2024 (Juan) Some elements in this clinic note that are critical to medical decision making have been carefully reviewed and included from a prior clinic note dated: December 29, 2023 (Christina) Referring Provider: Additional Clinicians involved in Jamel Bonds's care: DIAGNOSIS: Prostate cancer with biochemical relapse, history of diffuse large B-cell lymphoma. ASSESSMENT: Metastatic castrate sensitive prostate cancer We've had many discussions about the natural history of prostate cancer and the role of androgen deprivation. He has had rising PSA with a prior history of seed implantation he has not been interested in ADT since. We have had multiple discussions on this but he remains sexually active and is maintaining interest in this. LUTS was improving with Flomax but going 3-4 x/ night CT's show no evidence of measurable disease. PSA decreased - off Lupron and then has begun to increase. PSMA scan in June 2023 shows prostatic involvement with invasion into seminal vesicles. PLAN: Triage to call with today's lab results Lupron q 6 months - due on 06/21/2024 RTC in 9 weeks Labs with port same day Lupron due same day Patient to follow up with cardiology for bilateral lower extremity edema. _- HPI: CASE HISTORY: Reverse Chronological Order 04/20/2024 - PSA: 0.36 12/29/2023 - PSA: 1.16 12/01/2023 - PSA: 1.38 09/08/2023 - PSA: 1.34 07/07/2023-Current - Lupron 45mg q 6 months 07/03/2023 - PSMA PET: HEAD/NECK, CHEST, MUSCULOSKELETAL: No PSMA expressing neoplastic process. ABDOMENS/PELVIS: PSMA avid uptake at the peripheral zone of the prostate gland with possible extension to the right seminal vesicle, suspicious for neoplasm. No PSMA expressing neoplastic process elsewhere. 05/12/2023 - PSA: 5.31 11/11/2022 - PSA: 0.31 05/10/2022 - PSA: 0.89 02/08/2022-05/10/2022 - Lupron 22.5mg x2 - held due to intolerance 01/11/2022 - PSA: 63.27 02/19/2021 - PSA: 51.4 01/27/2020 - CT N/CAP: Neck: No soft tissue mass or fluid collection. No acute findings. No malignant or metastatic disease. 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 He also has mild narrowing of the carotid bifurcation bilaterally. Chest: No malignant or metastatic disease. No acute cardiopulmonary disease. A/P: Lung bases are unremarkable. No malignant or metastatic disease. There is hepatic steatosis. 06/14/2019 - PSA: 46.35 06/09/2018 - PSA: 35.81 11/26/2017 - Bone scan: Multiple foci of increased activity right anterior and posterior ribs, metastatic disease is suspected 05/14/2017 - PSA: 33.96 01/21/2017 - PET/CT Unremarkable glucometabolic appearance, stable since 02/15/2015. NECK: No FDG avid neoplastic process. No hypermetabolic mass, adenopathy, or fluid collection. CHEST: No FDG avid neoplastic process. No hypermetabolic mass, adenopathy, or fluid collection. ABDOMEN/PELVIS: No FDG avid neoplastic process. No hypermetabolic mass, adenopathy, or fluid collection. EXTREMITIES/SKELETON: No FDG avid osseous process. 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 He remains fatigued and endorses hot flashes due to Lupron, denies pain or appetite changes. He has gained 9lbs since 03/02/2024. He reports increasing insulin to 3 times daily, which may be the cause of his weight gain. He has developed a dry cough and lower extremity edema. I recommended he follow up with cardiology. Updated Visit, December 29, 2023: Doing well Due for cycle 2 lupron today C/o hot flashes. No other major complaints. Updated Visit, September 08, 2023: Jerel returns with Milagros. He complains of lower back pain and occasional hot flashes. Milagros reports he sleeps 19 hours a day (more content not included)... [facility] ([id number]) 1935 M Date Time Provider Department 04/20/24 SHAHEEN DIEHL During your visit today, we recorded the following information about you: Arianna Gusman 04/20/2024 11:35 AM Signed Triage to call with todays lab results Bhavna Grant RN 04/22/2024 9:40 AM Addendum Carrington: please review and advise labs PADMA Oakes Vivek, MD 04/22/2024 4:07 PM Signed PSA 0.3 - lupron is working well! Bhavna Grant RN 04/22/2024 4:20 PM Signed Pt and updated and denies any questions, needs or concerns at this time. Appt verified Bhavna Grant RN Allergies As of Date: 04/20/2024 Noted Allergy Reaction PENICILLINS 04/07/2009 4 - Hives Date Reviewed: 04/20/2024 Reviewed by: Pallavi Jensen MA - Fully Assessed Reason for Visit: Future Appointment [256] Prescriptions as of 04/22/2024 - insulin 70/30 aspart protamine-aspart units/mL (NOVOLOG MIX 70-30) 100 unit/mL (70-30) pen INJECT 38 UNITS WITH BREAKFAST, 38 WITH LUNCH, 38 UNITS WITH DINNER SUBCUTANEOUSLY - tamsulosin (FLOMAX) 0.4 mg Take 1 capsule by mouth once daily. - Blood-Glucose Meter (TRUE METRIX GLUCOSE METER) Check glucose 3 times daily Dx: E11.65 - blood sugar diagnostic (BLOOD GLUCOSE TEST) test strip Check glucose 3 times daily Dx: E11.65 - Lancets Check glucose 3 times daily Dx: E11.65 - dapagliflozin propanediol (FARXIGA) 10 mg tablet Take 1 tablet by mouth daily with breakfast. - Insulin Reasnor, Disposable, (UNIFINE PENTIPS PLUS) 32 gauge x 5/32 Use with insulin pens 3 times daily Dx: E11.65 - citalopram hydrobromide (CELEXA) 10 mg tablet Take 10 mg by mouth once daily. - atorvastatin (LIPITOR) 40 mg tablet Take 40 mg by mouth daily at bedtime. - magnesium oxide (MAG-OX) 400 mg (241.3 mg magnesium) tablet Take 400 mg by mouth once daily. - traMADol (ULTRAM) 50 mg tablet as needed. - loratadine (CLARITIN) 10 mg tablet as needed. - baclofen (LIORESAL) 10 mg tablet - multivit-min/FA/lycopen/kamille tein (CENTRUM SILVER MEN ORAL) Centrum Silver Men 2 QD - melatonin 1 mg tablet melatonin 10 mg 1 tab at bedtime - MULTIVITAMIN ORAL - fkhcstl-rzyschqdh-ypunoji D3 (OS-BESSY 500+D) 500 mg(1,250mg) -200 unit per tablet - Lactobac no.41-Bifidobact no.7 70 mg (3 billion cell) cap Probiotic 1 tab daily - triamcinolone acetonide (KENALOG) 0.1 % cream as needed. - levothyroxine (SYNTHROID) 25 mcg tablet Take 1 tablet by mouth once daily. - digoxin (LANOXIN) 125 mcg tablet Take 0.125 mg by mouth once daily. - omeprazole (PRILOSEC) 20 mg capsule omeprazole 20 mg capsule,delayed release Take 1 capsule every day by oral route. - metoprolol succinate ER (TOPROL XL) 25 mg 24 hr tablet Take 25 mg by mouth once daily. - XARELTO 20 mg tablet Take 20 mg by mouth once daily. - fluticasone (FLONASE) 50 mcg/actuation nasal spray 1 [place] as needed. - losartan (COZAAR) 50 mg tablet Take 50 mg by mouth once daily. - Cholecalciferol, Vitamin D3, 50 mcg (2,000 unit) cap Take 2,000 mg by mouth once daily. - Nut.Tx.Gluc.Intol,Lac-Free ,Soy (GLUCERNA SNACK SHAKE) liqd Take 237 mL by mouth three times daily with meals. - 0.9% NaCl NURSING USE ONLY: USED FOR IMPLANTED VASCULAR ACCESS DEVICE (IVAD) ACCESS. AMBULATORY/OUTPATIENT: PLEASE REORDER UPON HOSPITAL DISCHARGE May access implanted vascular access device (IVAD) as needed for treatment. Flush IVAD with 10-20 mL NS every 4 weeks and PRN when IVAD not in use. - heparin 100 unit/mL syrg NURSING USE ONLY: USE FOR IMPLANTED VASCULAR ACCESS DEVICE (IVAD) FLUSH. AMBULATORY/OUTPATIENT: PLEASE REORDER UPON HOSPITAL DISCHARGE May access implanted vascular access device (IVAD) as needed for treatment. Before de-accessing port, flush with 10-20ml normal saline and follow with 5 mL heparin (100 units/mL) (if no heparin allergy). De-access port on treatment completion. Problem List As Of Date 04/20/2024 Noted Resolved Type 2 diabetes mellitus, uncontrolled (HCC) [I*11/07/2009 05/28/2016 Hypertension [I10] 11/07/2009 Dyslipidemia [E78.5] 11/07/2009 Enlargement of lymph nodes [R59.9] 07/10/2011 NHL (non-Hodgkin's lymphoma) [C85.90] 01/30/2012 Prostate ca (HCC) [C61] 10/26/2013 Type 2 diabetes mellitus with renal manifestati*06/16/2014 Hypertrophy of prostate without urinary obstruc*06/28/2014 PSA elevation [R97.20] 06/28/2014 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 [H35.37*09/27/2014 11/28/2016 Lens replaced by other means - Both Eyes [Z96.1]09/27/2014 11/28/2016 Type 2 diabetes mellitus with stage 3b chronic *05/25/2015 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 Normal [facility] Comprehensive metabolic 2000 panelOrdered By: Adilia Joyce on 04-20-2024 Albumin [Mass/Vol] 4.0 g/dL 3.9 - 4.9 g/dL [facility] ALP [Catalytic activity/Vol] 74 U/L 38 - 113 U/L [facility] ALT [Catalytic activity/Vol] 17 U/L 10 - 54 U/L [facility] Anion gap [Moles/Vol] 10 mmol/L 8 - 15 mmol/L [facility] AST [Catalytic activity/Vol] 16 U/L 14 - 40 U/L [facility] Bilirubin [Mass/Vol] 0.5 mg/dL 0.2 - 1 .3 mg/dL [facility] Calcium [Mass/Vol] 9.4 mg/dL 8.5 - 10. 2 mg/dL [facility] Chloride [Moles/Vol] 99 mmol/L 98 - 10 7 mmol/L [facility] CO2 [Moles/Vol] 29 mmol/L 22 - 30 mmol/L [facility] Creatinine [Mass/Vol] 1.55 mg/dL High 0.73 - 1.22 mg/dL [facility] GFR/1.73 sq M.predicted among non-blacks MDRD (S/P/Bld) [Vol rate/Area] 43 mL/min/{1.73_m2} Low - PINF [facility] Comment on above: Estimated Glomerular Filtration Rate (eGFR) is calculated using the 2020 CKD-EPI creatinine equation. This equation utilizes serum creatinine, sex, and age as parameters. The creatinine assay has traceable calibration to isotope dilution-mass spectrometry. Refer to KDIGO guidelines for clinical interpretation. In patients with unstable renal function, e.g. those with acute kidney injury, the eGFR may not accurately reflect actual GFR. Glucose [Mass/Vol] 150 mg/dL High 74 - 99 mg/dL [facility] Comment on above: The [place] Diabete s Association (ADA) provides guidance for cutoff values for fasting glucose and random glucose. The ADA defines fasting as no caloric intake for at least 8 hours. Fasting plasma glucose results between 100 to 125 mg/dL indicate increased risk for diabetes (prediabetes). Fasting plasma glucose results greater than or equal to 126 mg/dL meet the criteria for diagnosis of diabetes. In the absence of unequivocal hyperglycemia, results should be confirmed by repeat testing. In a patient with classic symptoms of hyperglycemia or hyperglycemic crisis, random plasma glucose results greater than or equal to 200 mg/dL meet the criteria for diagnosis of diabetes. Reference: Standards of Medical Care in Diabetes 2016, [place] Diabetes Association. Diabetes Care. 2016.39(Suppl 1). Interpretation and review of laboratory results Abnormal [facility] Potassium [Moles/Vol] 5.0 mmol/L 3.7 - 5.1 mmol/L [facility] Protein [Mass/Vol] 6.7 g/dL 6.3 - 8.0 g/dL [facility] Sodium [Moles/Vol] 138 mmol/L 136 - 144 mmol/L [facility] Urea nitrogen [Mass/Vol] 36 mg/dL High 9 - 24 mg/dL [facility] Comprehensive metabolic 2000 panelon 04-20-2024 Albumin [Mass/Vol] 4.0 g/dL Normal 3.9-4.9 [facility] Comment on above: Order Comment: Speci men Type: BLOOD SPECIMENOrdering Facility: [facility] Address: [address] [place] [address] Performed By: #### 2 4323-8 ####[facility] LABCLIA [id number] [place] [address] ALP [Catalytic activity/Vol] 74 U/L Normal 38-113 [facility] Comment on above: Order Comment: Speci men Type: BLOOD SPECIMENOrdering Facility: [facility] Address: [address] [place] [address] Performed By: #### 2 4323-8 ####[facility] LABCLIA [id number] [place] [address] ALT [Catalytic activity/Vol] 17 U/L Normal 10-54 [facility] Comment on above: Order Comment: Speci men Type: BLOOD SPECIMENOrdering Facility: [facility] Address: [address] [place] [address] Performed By: #### 2 4323-8 ####[facility] LABCLIA [id number] [place] [address] Anion gap [Moles/Vol] 10 mmol/L Normal 8-15 [facility] Comment on above: Order Comment: Speci men Type: BLOOD SPECIMENOrdering Facility: [facility] Address: [address] [place] [address] Performed By: #### 2 4323-8 ####[facility] LABCLIA [id number] [place] [address] AST [Catalytic activity/Vol] 16 U/L Normal 14-40 [facility] Comment on above: Order Comment: Speci men Type: BLOOD SPECIMENOrdering Facility: [facility] Address: [address] [place] [address] Performed By: #### 2 4323-8 ####[facility] LABCLIA [id number] [place] [address] Bilirubin [Mass/Vol] 0.5 mg/dL Normal 0.2-1.3 [facility] Comment on above: Order Comment: Speci men Type: BLOOD SPECIMENOrdering Facility: [facility] Address: [address] [place] [address] Performed By: #### 2 4323-8 ####[facility] LABCLIA [id number] [place] [address] Calcium [Mass/Vol] 9.4 mg/dL Normal 8.5-10.2 [facility] Comment on above: Order Comment: Speci men Type: BLOOD SPECIMENOrdering Facility: [facility] Address: [address] [place] [address] Performed By: #### 2 4323-8 ####[facility] LABCLIA [id number] [place] [address] Chloride [Moles/Vol] 99 mmol/L Normal 98-107 [facility] Comment on above: Order Comment: Speci men Type: BLOOD SPECIMENOrdering Facility: [facility] Address: [address] [place] [address] Performed By: #### 2 4323-8 ####[facility] LABCLIA [id number] [place] [address] CO2 [Moles/Vol] 29 mmol/L Normal 22-30 [facility] Comment on above: Order Comment: Speci men Type: BLOOD SPECIMENOrdering Facility: [facility] Address: [address] [place] [address] Performed By: #### 2 4323-8 ####[facility] LABCLIA [id number] [place] [address] Creatinine [Mass/Vol] 1.55 mg/dL High 0.73-1.22 [facility] Comment on above: Order Comment: Marilyn cartwright Type: BLOOD SPECIMENOrdering Facility: [facility] Address: [address] [place], [place] [address] Performed By: #### 2 4323-8 ####[facility] LABCLIA [id number] [place] [address] Creatinine and Glomerular filtration rate.predicted panel (S/P/Bld) 43 mL/min/1.73m??? Low >=60 [facility] Comment on above: Order Comment: Marilyn cartwright Type: BLOOD SPECIMENOrdering Facility: [facility] Address: [address] [place] [address] Result Comment: Vero mated Glomerular Filtration Rate (eGFR) is calculated using the 2020 CKD-EPI creatinine equation. This equation utilizes serum creatinine, sex, and age as parameters. The creatinine assay has traceable calibration to isotope dilution-mass spectrometry. Refer to KDIGO guidelines for clinical interpretation. In patients with unstable renal function, e.g. those with acute kidney injury, the eGFR may not accurately reflect actual GFR. Performed By: #### 2 4323-8 ####[facility] LABCLIA [id number] [place] [address] Glucose [Mass/Vol] 150 mg/dL High 74-99 [facility] Comment on above: Order Comment: Marilyn cartwright Type: BLOOD SPECIMENOrdering Facility: [facility] Address: [address] [place], [place] [address] Result Comment: The [place] Diabetes Association (ADA) provides guidance for cutoff values for fasting glucose and random glucose. The ADA defines fasting as no caloric intake for at least 8 hours. Fasting plasma glucose results between 100 to 125 mg/dL indicate increased risk for diabetes (prediabetes). Fasting plasma glucose results greater than or equal to 126 mg/dL meet the criteria for diagnosis of diabetes. In the absence of unequivocal hyperglycemia, results should be confirmed by repeat testing. In a patient with classic symptoms of hyperglycemia or hyperglycemic crisis, random plasma glucose results greater than or equal to 200 mg/dL meet the criteria for diagnosis of diabetes. Reference: Standards of Medical Care in Diabetes 2016, French Diabetes Association. Diabetes Care. 2016.39(Suppl 1). Performed By: #### 2 4323-8 ####[facility] LABCLIA [id number] [place] [address] Potassium [Moles/Vol] 5.0 mmol/L Normal 3.7-5.1 [facility] Comment on above: Order Comment: Speci men Type: BLOOD SPECIMENOrdering Facility: [facility] Address: [address] [place] [address] Performed By: #### 2 4323-8 ####[facility] LABCLIA [id number] [place] [address] Protein [Mass/Vol] 6.7 g/dL Normal 6.3-8.0 [facility] Comment on above: Order Comment: Speci men Type: BLOOD SPECIMENOrdering Facility: [facility] Address: [address] [place] [address] Performed By: #### 2 4323-8 ####[facility] LABCLIA [id number] [place] [address] Sodium [Moles/Vol] 138 mmol/L Normal 136-144 [facility] Comment on above: Order Comment: Speci men Type: BLOOD SPECIMENOrdering Facility: [facility] Address: [address] [place] [address] Performed By: #### 2 4323-8 ####[facility] LABCLIA [id number] [place] [address] Urea nitrogen [Mass/Vol] 36 mg/dL High 9-24 [facility] Comment on above: Order Comment: Speci men Type: BLOOD SPECIMENOrdering Facility: [facility] Address: [address] [place] [address] Performed By: #### 2 4323-8 ####[facility] LABCLIA [id number] [place] [address] Ferritin SerPl-mCncon 2024 Ferritin [Mass/Vol] 75.3 ng/mL Normal 30.3-565.7 [facility] Comment on above: Order Comment: Speci men Type: BLOOD SPECIMEN [facility] Address: [address] [place] [address] Performed By: #### 2 857-1 #### [facility] CLIA [id number] [address] [place] [address] [place] Folate SerPl-ncon 04-20-19 25 Folate [Mass/Vol] ng/mL Normal >4.7 [facility] Comment on above: Order Comment: Speci men Type: BLOOD SPECIMEN [facility] Address: [address] [place] [address] Result Comment: A re sult of > 20 ng/mL is not necessarily indicative of a pathologic or treatable condition: it reflects a limitation of the test methodology. Assay reference range: 4.8 to 24.2 ng/mL. Suitable for detection of folate deficiency. Reference: Folate III (Folate III) [package insert V 1.0 Irish]. [facility], [place], [place]: January 2015. Performed By: #### 2 857-1 #### [facility] CLIA [id number] [address] [place] [address] [place] Iron and Iron binding capaci panelon 04-20-2024 Iron [Mass/Vol] 102 ug/dL Normal 41-186 [facility] Comment on above: Order Comment: Speci men Type: BLOOD SPECIMEN [facility] Address: [address] [place] [address] Performed By: #### 2 857-1 #### [facility] CLIA [id number] [address] [place] [address] [place] Iron binding capacity [Mass/Vol] 307 ug/dL Normal 232-386 [facility] Comment on above: Order Comment: Speci men Type: BLOOD SPECIMEN [facility] Address: [address] [place] [address] Performed By: #### 2 857-1 #### [facility] CLIA [id number] [address] [place] [address] [place] Iron/TIBC [Molar ratio] 33.2 % Normal 15.0-57.[address] [facility] Comment on above: Order Comment: Speci men Type: BLOOD SPECIMEN [facility] Address: [address] [place] [address] Performed By: #### 2 857-1 #### [facility] CLIA [id number] [address] [place] [address] [place] PSA [facility] 04-20-2024 Prostate specific Ag [Mass/Vol] 0.36 ng/mL Normal <2.60 [facility] Comment on above: Order Comment: Speci men Type: BLOOD SPECIMEN [facility] Address: [address] [place] [address] Result Comment: Tota l PSA test methodology used is the Electrochemiluminescence Immunoassay by [facility]. Total PSA values by differing methodologies cannot be interchanged. Performed By: #### 2 857-1 #### [facility] CLIA [id number] [address] [place] [address] [place] Vit [facility] Cobalamin (Vitamin B12) [Mass/Vol] 1427 pg/mL High 232-1245 [facility] Comment on above: Order Comment: Speci men Type: BLOOD SPECIMEN [facility] Address: [address] [place] [address] Performed By: #### 2 857-1 #### [facility] CLIA [id number] [address] [place] [address] [place] CNPMinerva 03-31-2024 JOHN Telephone (ENDOLN) -- JAMEL BONDS ([id number]) 1935 M Date Time Provider Department 03/31/24 ARNOLD HANDLEY During your visit today, we recorded the following information about you: Heena Melendez MA 03/31/2024 1:59 PM Signed A form has been received from [facility] for Last face to face encounter. Faxed 05/16/23 and 03/02/24 office notes to [phone]. Confirmation received. Parth Smith 04/02/2024 12:17 PM Signed Please advise they are needing the most updated office notes which would be 03/02/24. Please advise and refax face to face notes. Angella Chapin MA 04/08/2024 11:41 AM Signed OV notes from 03/02 re-faxed Allergies As of Date: 03/31/2024 Noted Allergy Reaction PENICILLINS 04/07/2009 4 - Hives Date Reviewed: 03/02/2024 Reviewed by: Arnold Handley APRN.CARDING SUPERVISOR - Fully Assessed Reason for Visit: Forms [913] Cmt: [facility] - Prescriptions as of 04/08/2024 - insulin 70/30 aspart protamine-aspart units/mL (NOVOLOG MIX 70-30) 100 unit/mL (70-30) pen INJECT 38 UNITS WITH BREAKFAST, 38 WITH LUNCH, 38 UNITS WITH DINNER SUBCUTANEOUSLY - tamsulosin (FLOMAX) 0.4 mg Take 1 capsule by mouth once daily. - Blood-Glucose Meter (TRUE METRIX GLUCOSE METER) Check glucose 3 times daily Dx: E11.65 - blood sugar diagnostic (BLOOD GLUCOSE TEST) test strip Check glucose 3 times daily Dx: E11.65 - Lancets Check glucose 3 times daily Dx: E11.65 - dapagliflozin propanediol (FARXIGA) 10 mg tablet Take 1 tablet by mouth daily with breakfast. - Insulin Reasnor, Disposable, (UNIFINE PENTIPS PLUS) 32 gauge x 5/32 Use with insulin pens 3 times daily Dx: E11.65 - citalopram hydrobromide (CELEXA) 10 mg tablet Take 10 mg by mouth once daily. - atorvastatin (LIPITOR) 40 mg tablet Take 40 mg by mouth daily at bedtime. - magnesium oxide (MAG-OX) 400 mg (241.3 mg magnesium) tablet Take 400 mg by mouth once daily. - traMADol (ULTRAM) 50 mg tablet - loratadine (CLARITIN) 10 mg tablet as needed. - baclofen (LIORESAL) 10 mg tablet - multivit-min/FA/lycopen/kmaille tein (CENTRUM SILVER MEN ORAL) Centrum Silver Men 2 QD - melatonin 1 mg tablet melatonin 10 mg 1 tab at bedtime - MULTIVITAMIN ORAL - rvuzdka-eozdxunbm-rpxdeuy D3 (OS-BESSY 500+D) 500 mg(1,250mg) -200 unit per tablet - Lactobac no.41-Bifidobact no.7 70 mg (3 billion cell) cap Probiotic 1 tab daily - triamcinolone acetonide (KENALOG) 0.1 % cream triamcinolone acetonide 0.1 % topical cream APPLY A THIN LAYER TO THE AFFECTED AREA(S) BY TOPICAL ROUTE 2 TIMES PER DAY - levothyroxine (SYNTHROID) 25 mcg tablet Take 1 tablet by mouth once daily. - digoxin (LANOXIN) 125 mcg tablet Take 0.125 mg by mouth once daily. - omeprazole (PRILOSEC) 20 mg capsule omeprazole 20 mg capsule,delayed release Take 1 capsule every day by oral route. - metoprolol succinate ER (TOPROL XL) 25 mg 24 hr tablet Take 25 mg by mouth once daily. - XARELTO 20 mg tablet Take 20 mg by mouth once daily. - fluticasone (FLONASE) 50 mcg/actuation nasal spray 1 [place] as needed. - losartan (COZAAR) 50 mg tablet Take 50 mg by mouth once daily. - Cholecalciferol, Vitamin D3, 50 mcg (2,000 unit) cap Take 2,000 mg by mouth once daily. - Nut.Tx.Gluc.Intol,Lac-Free ,Soy (GLUCERNA SNACK SHAKE) liqd Take 237 mL by mouth three times daily with meals. - 0.9% NaCl NURSING USE ONLY: USED FOR IMPLANTED VASCULAR ACCESS DEVICE (IVAD) ACCESS. AMBULATORY/OUTPATIENT: PLEASE REORDER UPON HOSPITAL DISCHARGE May access implanted vascular access device (IVAD) as needed for treatment. Flush IVAD with 10-20 mL NS every 4 weeks and PRN when IVAD not in use. - heparin 100 unit/mL syrg NURSING USE ONLY: USE FOR IMPLANTED VASCULAR ACCESS DEVICE (IVAD) FLUSH. AMBULATORY/OUTPATIENT: PLEASE REORDER UPON HOSPITAL DISCHARGE May access implanted vascular access device (IVAD) as needed for treatment. Before de-accessing port, flush with 10-20ml normal saline and follow with 5 mL heparin (100 units/mL) (if no heparin allergy). De-access port on treatment completion. 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 Normal [facility] CT lumbar spine wo brina CT lumbar spine wo con [facility] Main [place] [address] [place] [address] CT Scan Report Signed Patient: Jamel Bonds MR#: [id number] 879 : 1935 Acct:[id number] Age/Sex: 88 / M ADM Date: 03/03/24 Loc: CT Room: Type: [facility] Attending Dr: Lila Ervin MD Copies to: Lila Ervin MD Ordering Provider: Lila Ervin MD Date of Service: 03/03/24 CT/CT lumbar spine wo con: M46.1 - Sacroiliitis, not elsewhere classified CT lumbar spine wo con 03/03/2024 11:57 AM History:Nonradiating low back pain. No known injury. TECHNIQUE: Multi detector CT axial slices of the lumbar spine were obtained without IV contrast. Volumetric acquisition sagittal, coronal, and 3-D reconstructions were performed and reviewed on a separate workstation. CT was performed with one or more of the following dose reduction techniques: Automated exposure control, adjustment of the mA and/or kV according to patient size, or use of iterative reconstruction technique. COMPARISON: Lumbar spine 01/11/2024 FINDINGS: No fracture. Vertebral body heights appear maintained. Scattered endplate and facet joint degenerative changes with moderately severe diffuse degenerative disc disease, worst at L5-S1 with endplate sclerosis present. Transverse processes appear intact. SI joints demonstrate degenerative change. No paraspinal mass. Visualized retroperitoneum demonstrates no acute findings. CT/CT lumbar spine wo con IMPRESSION: Multilevel degenerative disc disease worst at L5-S1. No acute bony process. Impression dictated by: Gerald Zimmerman Jr., DJohanneOJohanne03/03/2024 4:56 PM Dictation Location: [facility]--18 Transcribed By: [facility] 03/03/241655 Dictated By: Gerald Zimmerman Jr, DO 03/03/24 1648 Signed By: 03/03/241655 Normal [facility] CNOVon 03-02-2024 CNOV Office Visit (ENDOLN ) -- JAMEL BONDS ([id number]) 1935 M Date Time Provider Department 03/02/24 1:30 PM ARNOLD HANDLEY During your visit today, we recorded the following information about you: Pulse Blood pressure Weight 60/minute 151/66 80.6 kg Arnold Handley, JOSE.CARDING SUPERVISOR 03/02/2024 2:10 PM Signed Endocrinology Follow-up History of Present Illness Jamel Bonds is a 88 year old male presents today for follow up of DM Type 2 and hypothyroidism. No acute complaints today. HbA1c is 7.6%. He reports he will be getting a steroid injection this . On LT4 25 mcg daily, takes appropriately. Date of Diagnosis: ~1999 Last HbA1c: Hemoglobin A1C (%) Date Value 05/12/2023 8.9 04/10/2022 8.2 04/02/2021 8.4 08/22/2020 7.9 05/16/2020 8.4 10/06/2019 7.8 03/22/2019 8.1 Hemoglobin A1C (POCT) (%) Date Value 03/02/2024 7.6 11/14/2023 7.3 01/03/2023 8.9 08/09/2022 7.9 11/09/2021 7.9 Family history of diabetes: father and maternal [...] cocoa 11-12 PM: Dinner 2 slices of vincentian cheese and ham, Glucerna 5-6 PM: Supper: biggest meal SMBG Frequency of Monitoring: Three times a Day BG Values: 2 week average 189 Hypoglycemia Frequency: none Current DM Related Medications: Current Medications 03/02/2024 DIABETES THERAPIES Medication Dosage Pharm Subclass dapagliflozin propanediol (FARXIGA) 10 mg tablet Take 1 tablet by mouth daily with breakfast. Antihyperglycemic - Sodium Glucose Cotransporter-2 (SGLT2) Inhibitors insulin 70/30 aspart protamine-aspart units/mL (NOVOLOG MIX 70-30) 100 unit/mL (70-30) pen INJECT 38 UNITS [...] mouth once daily. Beta Blockers Cardiac Selective ANTICOAGULANTS Medication Dosage Pharm Subclass heparin 100 unit/mL syrg NURSING USE ONLY: USE FOR IMPLANTED VASCULAR ACCESS DEVICE (IVAD) FLUSH. AMBULATORY/OUTPATIENT: PLEASE REORDER UPON HOSPITAL DISCHARGE May [...] in use. Pharmaceutical Adjuvant - Parenteral Vehicles baclofen (LIORESAL) 10 mg tablet Skeletal Muscle Relaxant - Central Muscle Relaxants blood sugar diagnostic (BLOOD GLUCOSE TEST) test strip Check glucose 3 times daily Dx: E11.65 [facility] Supplies [facility] DME - Blood Glucose Tests Blood-Glucose Meter (TRUE METRIX GLUCOSE METER) Check glucose 3 times daily Dx: E11.65 Medical Supplies and DME - Glucose Monitoring Test Supplies kavfrli-isytdbham-vktswbr D3 (OS-BESSY 500+D) 500 mg(1,250mg) -200 unit per tablet Minerals and Electrolytes - Calcium Replacement/Vitamin D Combinations Cholecalciferol, Vitamin D3, 50 mcg (2,000 unit) cap Take 2,000 mg by mouth once daily. Vitamins - D Derivatives citalopram hydrobromide (CELEXA) 10 mg tablet Take 10 mg by mouth once daily. Antidepressant - Selective Serotonin Reuptake Inhibitors (SSRIs) fluticasone (FLONASE) 50 mcg/actuation nasal spray 1 [place] as needed. Nasal Corticosteroids Insulin Reasnor, Disposable, (UNIFINE PENTIPS PLUS) 32 gauge x 5/32 Use with insulin pens 3 times daily Dx: E11.65 Medical Supplies [facility] DME - Insulin Reasnor-Syringes and Admin Supplies Lactobac no.41-Bifidobact no.7 70 mg (3 billion cell) cap Probiotic 1 tab daily Intestinal Claudia Modifiers Lancets Check glucose 3 times daily Dx: E11.65 [facility] Supp[facility] - Glucose Monitoring T (more content not included)... Normal [facility] GLOOKO ON DEMANDon Ordered by an unspec ified provider. [facility] HEMOGLOBIN A1C (POC)on 03-02 HbA1c (Bld) [Mass fraction] 7.6 % Abnormal 4.3 - 5.6 % [facility] Comment on above: Location:[facility], [address] [place] [address], [facility] Point of care (POC) Hemoglobin A1c (HGBA1C) [...] specific diabetes management situations: The POC device tax commissioner provides a normal range of 4.2% to 6.5% for the HGBA1C POC test. However, the [place] Diabetes Association guidelines indicate that patients with [...] anemia) that alter red blood cell lifespan. Interpretation and review of laboratory results Abnormal [facility] Influenza virus A and B and SARS-CoV-2 (COVID-19) RNA panel - Respiratory system specon 02-25-2024 Influenza virus A and B RNA and SARS-CoV-2 (COVID-19) N gene panel TITI+probe (Resp) Influenza virus A and B and SARS-CoV-2 (COVID-19) RNA panel - Respiratory system spec [facility] - Microbiology an d Antimicrobial susceptibilityon 02-25-2024 SARS-CoV-2 (COVID-19) RNA TITI+probe Ql (Unsp spec) Negative [facility] No Panel Informationon 02-24 POC Influenza B (TITI) Negative [facility] CNCOon 01-20-2024 CNCO Letter Text Normal [facility] XR lumbar spine 6V w bending on 01-19-2024 XR lumbar spine 6V w bending [facility] Main [place] [id number] XRay Report Signed Patient: Jamel Bonds MR#: [id number] 879 : 1935 Acct:[id number] Age/Sex: 88 / M ADM Date: 01/19/24 [facility] Type: [facility] Attending Dr: Amanda Heard PA-C Copies to: Amanda Heard PA-C Ordering Provider: Amanda Heard PA-C Date of Service: 01/19/24 XR/XR [...] Tino Rain M.D.01/19/2024 3:29 PM Dictation Location: [place] [address] Transcribed By: [facility] 01/19/24 1529 Dictated By: Tino Rain DO 01/19/24 1525 Signed By: 01/19/24 1529 Normal [facility] XR si jointson 01-19-2024 XR si joints [facility] Main [address] [address] XRay Report Signed Patient: Jamel Bonds MR#: [id number] 879 : 1935 Acct:[id number] Age/Sex: 88 / M ADM Date: 01/19/24 Loc: [facility] Room: Type: [facility] Attending Dr: Amanda Heard PA-C Copies to: Amanda Heard PA-C Ordering Provider: Amanda Heard PA-C Date of Service: 01/19/24 XR/XR [...] Tino Rain M.D.01/19/2024 3:31 PM Dictation Location: [place] [address] Transcribed By: [facility] 01/19/24 1531 Dictated By: Tino Rain DO 01/19/24 1529 Signed By: 01/19/24 1531 Normal [facility] CBC W Auto Differential pane l (Bld)on 12-29-2023 Basophils (Bld) [#/Vol] 0.07 10*3/uL [facility] Basophils/100 WBC (Bld) 0.8 % [facility] Differential cell count method Nom (Bld) Auto [facility] Eosinophils (Bld) [#/Vol] 0.60 10*3/uL High [facility] Eosinophils/100 WBC (Bld) 7.1 % [facility] Erythrocyte distribution width (RBC) [Ratio] 13.2 % 11.5 - 15.0 % [facility] Hematocrit (Bld) [Volume fraction] 35.1 % Low 39.0 - 51.0 % [facility] Hemoglobin (Bld) [Mass/Vol] 11.9 g/dL Low 13.0 - 17.0 g/dL [facility] Immature granulocytes (Bld) [#/Vol] 0.04 10*3/uL [facility] Immature granulocytes/100 WBC (Bld) 0.5 % [facility] Interpretation and review of laboratory results Abnormal [facility] Lymphocytes (Bld) [#/Vol] 2.00 10*3/uL [facility] Lymphocytes/100 WBC (Bld) 23.6 % [facility] MCH (RBC) [Entitic mass] 32.0 pg 26.0 - 34.0 pg [facility] MCHC (RBC) [Mass/Vol] 33.9 g/dL 30.5 - 36.0 g/dL [facility] MCV (RBC) [Entitic vol] 94.4 fL 80.0 - 100.0 fL [facility] Monocytes (Bld) [#/Vol] 0.83 10*3/[facility] Monocytes/100 WBC (Bld) 9.8 % [facility] Neutrophils (Bld) [#/Vol] 4.92 10*3/uL [facility] Neutrophils/100 WBC (Bld) 58.2 % [facility] Nucleated RBC (Bld) [#/Vol] [facility] Nucleated RBC/100 WBC (Bld) [Ratio] 0.0 % /100 WBC [facility] Platelet mean volume (Bld) [Entitic vol] 9.7 fL 9.0 - 12.7 fL [facility] Platelets (Bld) [#/Vol] 198 10*3/uL [facility] RBC (Bld) [#/Vol] 3.72 10*6/uL Low 4.20 - 6.00 m/uL [facility] WBC (Bld) [#/Vol] 8.46 10*3/uL [facility] Basophils (Bld) [#/Vol] 0.07 10*3/uL Normal <0.11 [facility] Comment on above: Order Comment: Speci men Type: BLOOD SPECIMEN [facility] Address: [address] [place] [address] Performed By: #### 2 857-1 #### [facility] CLIA [id number] [address] [place] [address] [place] Basophils/100 WBC (Bld) 0.8 % Normal [facility] Comment on above: Order Comment: Speci men Type: BLOOD SPECIMEN [facility] Address: [address] [place] [address] Performed By: #### 2 857-1 #### [facility] CLIA [id number] [address] [place] [address] [place] Differential cell count method Nom (Bld) Auto Normal [facility] Comment on above: Order Comment: Speci men Type: BLOOD SPECIMEN [facility] Address: [address] [place] [address] Performed By: #### 2 857-1 #### [facility] CLIA [id number] [address] [place] [address] [place] Eosinophils (Bld) [#/Vol] 0.60 10*3/uL High <0.46 [facility] Comment on above: Order Comment: Speci men Type: BLOOD SPECIMEN [facility] Address: [address] [place] [address] Performed By: #### 2 857-1 #### [facility] CLIA [id number] [address] [place] [address] [place] Eosinophils/100 WBC (Bld) 7.1 % Normal [facility] Comment on above: Order Comment: Speci men Type: BLOOD SPECIMEN [facility] Address: [address] [place] [address] Performed By: #### 2 857-1 #### [facility] CLIA [id number] [address] [place] [address] [place] Erythrocyte distribution width (RBC) [Ratio] 13.2 % Normal 11.5-15.0 [facility] Comment on above: Order Comment: Speci men Type: BLOOD SPECIMEN [facility] Address: [address] [place] [address] Performed By: #### 2 857-1 #### [facility] CLIA [id number] [address] [place] [address] [place] Hematocrit (Bld) [Volume fraction] 35.1 % Low 39.0-51.0 [facility] Comment on above: Order Comment: Speci men Type: BLOOD SPECIMEN [facility] Address: [address] [place] [address] Performed By: #### 2 857-1 #### [facility] CLIA [id number] [address] [place] [address] [place] Hemoglobin (Bld) [Mass/Vol] 11.9 g/dL Low 13.0-17.0 [facility] Comment on above: Order Comment: Speci men Type: BLOOD SPECIMEN Ordering Facility: [facility] Address: [address] [place] [address] Performed By: #### 2 857-1 #### [facility] CLIA [id number] [address] [place] [address] [place] Immature granulocytes (Bld) [#/Vol] 0.04 10*3/uL Normal <0.10 [facility] Comment on above: Order Comment: Speci men Type: BLOOD SPECIMEN Ordering Facility: [facility] Address: [address] [place] [address] Performed By: #### 2 857-1 #### [facility] CLIA [id number] [address] [place] [address] [place] Immature granulocytes/100 WBC (Bld) 0.5 % Normal [facility] Comment on above: Order Comment: Speci men Type: BLOOD SPECIMEN Ordering Facility: [facility] Address: [address] [place] [address] Performed By: #### 2 857-1 #### [facility] CLIA [id number] [address] [place] [address] [place] Lymphocytes (Bld) [#/Vol] 2.00 10*3/uL Normal 1.00-4.00 [facility] Comment on above: Order Comment: Speci men Type: BLOOD SPECIMEN Ordering Facility: [facility] Address: [address] [place] [address] Performed By: #### 2 857-1 #### [facility] CLIA [id number] [address] [place] [address] [place] Lymphocytes/100 WBC (Bld) 23.6 % Normal [facility] Comment on above: Order Comment: Speci men Type: BLOOD SPECIMEN Ordering Facility: [facility] Address: [address] [place] [address] Performed By: #### 2 857-1 #### [facility] CLIA [id number] [address] [place] [address] [place] MCH (RBC) [Entitic mass] 32.0 pg Normal 26.0-34.0 [facility] Comment on above: Order Comment: Speci men Type: BLOOD SPECIMEN Ordering Facility: [facility] Address: [address] [place] [address] Performed By: #### 2 857-1 #### [facility] CLIA [id number] [address] [place] [address] [place] MCHC (RBC) [Mass/Vol] 33.9 g/dL Normal 30.5-36.0 [facility] Comment on above: Order Comment: Speci men Type: BLOOD SPECIMEN Ordering Facility: [facility] Address: [address] [place] [address] Performed By: #### 2 857-1 #### [facility] CLIA [id number] [address] [place] [address] [place] MCV (RBC) [Entitic vol] 94.4 fL Normal 80.0-100.[address] [facility] Comment on above: Order Comment: Speci men Type: BLOOD SPECIMEN Ordering Facility: [facility] Address: [address] [place] [address] Performed By: #### 2 857-1 #### [facility] CLIA [id number] [address] [place] [address] [place] Monocytes (Bld) [#/Vol] 0.83 10*3/uL Normal <0.87 [facility] Comment on above: Order Comment: Speci men Type: BLOOD SPECIMEN Ordering Facility: [facility] Address: [address] [place] [address] Performed By: #### 2 857-1 #### [facility] CLIA [id number] [address] [place] [address] [place] Monocytes/100 WBC (Bld) 9.8 % Normal [facility] Comment on above: Order Comment: Speci men Type: BLOOD SPECIMEN Ordering Facility: [facility] Address: [address] [place] [address] Performed By: #### 2 857-1 #### [facility] CLIA [id number] [address] [place] [address] [place] Neutrophils (Bld) [#/Vol] 4.92 10*3/uL Normal 1.45-7.50 [facility] Comment on above: Order Comment: Speci men Type: BLOOD SPECIMEN Ordering Facility: [facility] Address: [address] [place] [address] Performed By: #### 2 857-1 #### [facility] CLIA [id number] [address] [place] [address] [place] Neutrophils/100 WBC (Bld) 58.2 % Normal [facility] Comment on above: Order Comment: Speci men Type: BLOOD SPECIMEN Ordering Facility: [facility] Address: [address] [place] [address] Performed By: #### 2 857-1 #### [facility] CLIA [id number] [address] [place] [address] [place] Nucleated RBC (Bld) [#/Vol] 10*3/uL Normal <0.01 [facility] Comment on above: Order Comment: Speci men Type: BLOOD SPECIMEN Ordering Facility: [facility] Address: [address] [place] [address] Performed By: #### 2 857-1 #### [facility] CLIA [id number] [address] [place] [address] [place] Nucleated RBC/100 WBC (Bld) [Ratio] 0.0 /100 WBC Normal [facility] Comment on above: Order Comment: Speci men Type: BLOOD SPECIMEN Ordering Facility: [facility] Address: [address] [place] [address] Performed By: #### 2 857-1 #### [facility] CLIA [id number] [address] [place] [address] [place] Platelet mean volume (Bld) [Entitic vol] 9.7 fL Normal 9.0-12.7 [facility] Comment on above: Order Comment: Speci men Type: BLOOD SPECIMEN Ordering Facility: [facility] Address: [address] [place] [address] Performed By: #### 2 857-1 #### [facility] CLIA [id number] [address] [place] [address] [place] Platelets (Bld) [#/Vol] 198 10*3/uL Normal 150-400 [facility] Comment on above: Order Comment: Speci men Type: BLOOD SPECIMEN Ordering Facility: [facility] Address: [address] [place] [address] Performed By: #### 2 857-1 #### [facility] CLIA [id number] [address] [place] [address] [place] RBC (Bld) [#/Vol] 3.72 10*6/uL Low 4.20-6.00 [facility] Comment on above: Order Comment: Speci men Type: BLOOD SPECIMEN Ordering Facility: [facility] Address: [address] [place] [address] Performed By: #### 2 857-1 #### [facility] CLIA [id number] [address] [place], [place] [address] [address] [place] WBC (Bld) [#/Vol] 8.46 10*3/uL Normal 3.70-11.00 [facility] Comment on above: Order Comment: Speci men Type: BLOOD SPECIMEN Ordering Facility: [facility] Address: [address] [place] [address] Performed By: #### 2 857-1 #### [facility] CLIA [id number] [address] [place], [place] [address] [place] CNOVSPon 12-29-2023 CNOVSP Visit (SP) Office ([facility]) -- JAMEL BONDS ([id number]) 1935 M Date Time Provider Department 12/29/23 2:30 PM BRITTNEY VASQUEZ During your visit today, we recorded the following information about you: Temperature Pulse Respiration Blood pressure 97.6 degrees 59/minute 16/minute 126/72 Weight Height 81.1 kg 1.727 m Brittney Vasquez MD 12/29/2023 3:15 PM Signed NAME: Jalyn Jamel CLINIC NO.: [id number] DATE OF SERVICE: December 29, 2023 Some elements in this clinic note that are critical to medical decision making have been carefully reviewed and included from a prior clinic note dated: September 08, 2023 (Juan) Referring Provider: Additional Clinicians involved in Jamel Bonds's care: DIAGNOSIS: prostate cancer with biochemical relapse, history of diffuse large B-cell lymphoma. ASSESSMENT: Metastatic castrate sensitive prostate cancer We've had many discussions about the natural history of prostate cancer and the role of androgen deprivation. He has had rising PSA with a prior history of seed implantation he has not been interested in ADT since. We have had multiple discussions on this but he remains sexually active and is maintaining interest in this. LUTS was improving with Flomax but going 3-4 x/ night CT's show no evidence of measurable disease. PSA decreased - off Lupron and then has begun to increase. PSMA scan in June 2023 shows prostatic involvement with invasion into seminal vesicles PLAN: Proceed with cycle 2 lupron today Port flushes q 12 weeks Recent PSA was 1.38 on 12/01/23. PSA from today is pending. CBC CMP essentially unremarkable. All their questions answered in detail. Ordered labs and F/u in 3 months with . _- HPI: CASE HISTORY: Reverse Chronological Order 07/03/2023 - PSMA PET: HEAD/NECK, CHEST, MUSCULOSKELETAL: No PSMA expressing neoplastic process. ABDOMENS/PELVIS: PSMA avid uptake at the peripheral zone of the prostate gland with possible extension to the right seminal vesicle, suspicious for neoplasm. No PSMA expressing neoplastic process elsewhere. 05/12/2023 - PSA: 5.31 11/11/2022 - PSA: 0.31 01/27/2020 - CT N/CAP: Neck: No soft tissue mass or fluid collection. No acute findings. No malignant or metastatic disease. 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 He also has mild narrowing of the carotid bifurcation bilaterally. Chest: No malignant or metastatic disease. No acute cardiopulmonary disease. A/P: Lung bases are unremarkable. No malignant or metastatic disease. There is hepatic steatosis. 01/21/2017 12:08 PM - Interface, Results In Unremarkable glucometabolic appearance, stable since 02/15/2015. NECK: No FDG avid neoplastic process. No hypermetabolic mass, adenopathy, or fluid collection. CHEST: No FDG avid neoplastic process. No hypermetabolic mass, adenopathy, or fluid collection. ABDOMEN/PELVIS: No FDG avid neoplastic process. No hypermetabolic mass, adenopathy, or fluid collection. EXTREMITIES/SKELETON: No FDG avid osseous process. 2011 - Completed R-CHOP for Non-Hodgkin's lymphoma Updated visit 12/29/23: - Doing well - Due for cycle 2 lupron today - C/o hot flashes. - No other major complaints. Updated Visit, September 08, 2023: Jerel returns with Milagros. He complains of lower back pain and occasional hot flashes. Milagros reports he sleeps 19 hours a day some days. However he is otherwise very active and cheerful. He has tolerated resuming Lupron well. Updated Visit, July 07, 2023: Jerel returns today with Milagros. We reviewed his PSMA PET - shows uptake that is suspicious for neoplasm. Milagros says he has been complaining about lower back pain - no disease noted on PET to explain this. I recommend he consult with radiation oncology in addition to continuing Lupron. He is hesitant about radiation but agrees to meet with them. He has gone by Jerel ever since his childhood neighbor could not pronounce his actual name. Updated Visit, May 30, 2023: Jerel returns with Milagros. Doing well. PSA rising. Will assess for metastatic disease prior to starting him on Lupron again or CAB. Updated Visit, November 13, 2022: Returns with Milagros - PSA is decreased compared to 3 months ago. Pinch his palm 1-2 weeks ago in a vice and bled since he is on Xarelto. (Can't stand blood and so had a tough time). Would like to hold off on Lupron. Mildly low hemoglobin with CRF Updated Visit, August 14, 2022: Jerel returns with his Milagros today. He is still reluctant to continue Lupron. It has affected his quality of life too much. Based on his expectations, we will skip Lupron and reconsider in 3 months. He has experienced too much fatigue and sexual impotence for his satisfaction. Updated Visit, May 10, 2022: R (more content not included)... Normal [facility] Comprehensive metabolic 2000 panelOrdered By: Sam Osorio on 12-29-2023 Albumin [Mass/Vol] 4.0 g/dL 3.9 - 4.9 g/dL [facility] ALP [Catalytic activity/Vol] 74 U/L 38 - 113 U/L [facility] ALT [Catalytic activity/Vol] 13 U/L 10 - 54 U/L [facility] Anion gap [Moles/Vol] 4 mmol/L Low 8 - 15 mmol/L [facility] AST [Catalytic activity/Vol] 17 U/L 14 - 40 U/L [facility] Bilirubin [Mass/Vol] 0.4 mg/dL 0.2 - 1 .3 mg/dL [facility] Calcium [Mass/Vol] 9.6 mg/dL 8.5 - 10. 2 mg/dL [facility] Chloride [Moles/Vol] 100 mmol/L 98 - 10 7 mmol/L [facility] CO2 [Moles/Vol] 30 mmol/L 22 - 30 mmol/L [facility] Creatinine [Mass/Vol] 1.70 mg/dL High 0.73 - 1.22 mg/dL [facility] GFR/1.73 sq M.predicted among non-blacks MDRD (S/P/Bld) [Vol rate/Area] 39 mL/min/{1.73_m2} Low - PINF [facility] Comment on above: Estimated Glomerular Filtration Rate (eGFR) is calculated using the 2020 CKD-EPI creatinine equation. This equation utilizes serum creatinine, sex, and age as parameters. The creatinine assay has traceable calibration to isotope dilution-mass spectrometry. Refer to KDIGO guidelines for clinical interpretation. In patients with unstable renal function, e.g. those with acute kidney injury, the eGFR may not accurately reflect actual GFR. Glucose [Mass/Vol] 99 mg/dL 74 - 99 mg/dL [facility] Comment on above: The [place] Diabete s Association (ADA) provides guidance for cutoff values for fasting glucose and random glucose. The ADA defines fasting as no caloric intake for at least 8 hours. Fasting plasma glucose results between 100 to 125 mg/dL indicate increased risk for diabetes (prediabetes). Fasting plasma glucose results greater than or equal to 126 mg/dL meet the criteria for diagnosis of diabetes. In the absence of unequivocal hyperglycemia, results should be confirmed by repeat testing. In a patient with classic symptoms of hyperglycemia or hyperglycemic crisis, random plasma glucose results greater than or equal to 200 mg/dL meet the criteria for diagnosis of diabetes. Reference: Standards of Medical Care in Diabetes 2016, [place] Diabetes Association. Diabetes Care. 2016.39(Suppl 1). Interpretation and review of laboratory results Abnormal [facility] Potassium [Moles/Vol] 5.0 mmol/L 3.7 - 5.1 mmol/L [facility] Protein [Mass/Vol] 7.0 g/dL 6.3 - 8.0 g/dL [facility] Sodium [Moles/Vol] 134 mmol/L Low 136 - 144 mmol/L [facility] Urea nitrogen [Mass/Vol] 39 mg/dL High 9 - 24 mg/dL [facility] Comprehensive metabolic 2000 panelon 12-29-2023 Albumin [Mass/Vol] 4.0 g/dL Normal 3.9-4.9 [facility] Comment on above: Order Comment: Speci men Type: BLOOD SPECIMEN Ordering Facility: [facility] Address: [address] [place] [address] Performed By: #### 2 857-1 #### [facility] CLIA [id number] [address] [place] [address] [place] ALP [Catalytic activity/Vol] 74 U/L Normal 38-113 [facility] Comment on above: Order Comment: Speci men Type: BLOOD SPECIMEN Ordering Facility: [facility] Address: [address] [place] [address] Performed By: #### 2 857-1 #### [facility] CLIA [id number] [address] [place] [address] [place] ALT [Catalytic activity/Vol] 13 U/L Normal 10-54 [facility] Comment on above: Order Comment: Speci men Type: BLOOD SPECIMEN Ordering Facility: [facility] Address: [address] [place] [address] Performed By: #### 2 857-1 #### [facility] CLIA [id number] [address] [place] [address] [place] Anion gap [Moles/Vol] 4 mmol/L Low 8-15 [facility] Comment on above: Order Comment: Speci men Type: BLOOD SPECIMEN Ordering Facility: [facility] Address: [address] [place] [address] Performed By: #### 2 857-1 #### [facility] CLIA [id number] [address] [place] [address] [place] AST [Catalytic activity/Vol] 17 U/L Normal 14-40 [facility] Comment on above: Order Comment: Speci men Type: BLOOD SPECIMEN Ordering Facility: [facility] Address: [address] [place] [address] Performed By: #### 2 857-1 #### [facility] CLIA [id number] [address] [place] [address] [place] Bilirubin [Mass/Vol] 0.4 mg/dL Normal 0.2-1.3 [facility] Comment on above: Order Comment: Speci men Type: BLOOD SPECIMEN Ordering Facility: [facility] Address: [address] [place] [address] Performed By: #### 2 857-1 #### [facility] CLIA [id number] [address] [place] [address] [place] Calcium [Mass/Vol] 9.6 mg/dL Normal 8.5-10.2 [facility] Comment on above: Order Comment: Speci men Type: BLOOD SPECIMEN Ordering Facility: [facility] Address: [address] [place] [address] Performed By: #### 2 857-1 #### [facility] CLIA [id number] [address] [place] [address] [place] Chloride [Moles/Vol] 100 mmol/L Normal 98-107 [facility] Comment on above: Order Comment: Speci men Type: BLOOD SPECIMEN Ordering Facility: [facility] Address: [address] [place] [address] Performed By: #### 2 857-1 #### [facility] CLIA [id number] [address] [place] [address] [place] CO2 [Moles/Vol] 30 mmol/L Normal 22-30 [facility] Comment on above: Order Comment: Speci men Type: BLOOD SPECIMEN Ordering Facility: [facility] Address: [address] [place] [address] Performed By: #### 2 857-1 #### [facility] CLIA [id number] [address] [place] [address] [place] Creatinine [Mass/Vol] 1.70 mg/dL High 0.73-1.22 [facility] Comment on above: Order Comment: Marilyn men Type: BLOOD SPECIMEN Ordering Facility: [facility] Address: [address] [place] [address] Performed By: #### 2 857-1 #### [facility] CLIA [id number] [address] [place] [address] [place] Creatinine and Glomerular filtration rate.predicted panel (S/P/Bld) 39 mL/min/1.73m??? Low >=60 [facility] Comment on above: Order Comment: Marilyn cartwright Type: BLOOD SPECIMEN Ordering Facility: [facility] Address: [address] [place] [address] Result Comment: Vero mated Glomerular Filtration Rate (eGFR) is calculated using the 2020 CKD-EPI creatinine equation. This equation utilizes serum creatinine, sex, and age as parameters. The creatinine assay has traceable calibration to isotope dilution-mass spectrometry. Refer to KDIGO guidelines for clinical interpretation. In patients with unstable renal function, e.g. those with acute kidney injury, the eGFR may not accurately reflect actual GFR. Performed By: #### 2 857-1 #### [facility] CLIA [id number] [address] [place] [address] [place] Glucose [Mass/Vol] 99 mg/dL Normal 74-99 [facility] Comment on above: Order Comment: Marilyn cartwright Type: BLOOD SPECIMEN Ordering Facility: [facility] Address: [address] [place] [address] Result Comment: The [place] Diabetes Association (ADA) provides guidance for cutoff values for fasting glucose and random glucose. The ADA defines fasting as no caloric intake for at least 8 hours. Fasting plasma glucose results between 100 to 125 mg/dL indicate increased risk for diabetes (prediabetes). Fasting plasma glucose results greater than or equal to 126 mg/dL meet the criteria for diagnosis of diabetes. In the absence of unequivocal hyperglycemia, results should be confirmed by repeat testing. In a patient with classic symptoms of hyperglycemia or hyperglycemic crisis, random plasma glucose results greater than or equal to 200 mg/dL meet the criteria for diagnosis of diabetes. Reference: Standards of Medical Care in Diabetes 2016, [place] Diabetes Association. Diabetes Care. 2016.39(Suppl 1). Performed By: #### 2 857-1 #### [facility] CLIA [id number] [address] [place] [address] [place] Potassium [Moles/Vol] 5.0 mmol/L Normal 3.7-5.1 [facility] Comment on above: Order Comment: Marilyn cartwright Type: BLOOD SPECIMEN Ordering Facility: [facility] Address: [address] [place] [address] Performed By: #### 2 857-1 #### [facility] CLIA [id number] [address] [place] [address] [place] Protein [Mass/Vol] 7.0 g/dL Normal 6.3-8.0 [facility] Comment on above: Order Comment: Marilyn cartwright Type: BLOOD SPECIMEN Ordering Facility: [facility] Address: [address] [place] [address] Performed By: #### 2 857-1 #### [facility] CLIA [id number] [address] [place] [address] [place] Sodium [Moles/Vol] 134 mmol/L Low 136-144 [facility] Comment on above: Order Comment: Marilyn cartwright Type: BLOOD SPECIMEN Ordering Facility: [facility] Address: [address] [place] [address] Performed By: #### 2 857-1 #### [facility] CLIA [id number] [address] [place] [address] [place] Urea nitrogen [Mass/Vol] 39 mg/dL High 9-24 [facility] Comment on above: Order Comment: Speci men Type: BLOOD SPECIMEN Ordering Facility: [facility] Address: [address] [place] [address] Performed By: #### 2 857-1 #### [facility] CLIA [id number] [address] [place] [address] [place] PSA SerPl-mCncon 12-29-2023 Prostate specific Ag [Mass/Vol] 1.16 ng/mL Normal <2.60 [facility] Comment on above: Order Comment: Speci men Type: BLOOD SPECIMENOrdering Facility: [facility] Address: [address] [place] [address] Result Comment: Tota l PSA test methodology used is the Electrochemiluminescence Immunoassay by [employer]. Total PSA values by differing methodologies cannot be interchanged. Performed By: #### 2 857-1 ####[facility] [id number] [place] [address] [place] TSH SerPl-aCncon 12-29-2023 TSH Qn 2.600 m[IU]/L Normal 0.270-4.20 0 [facility] Comment on above: Order Comment: Speci men Type: BLOOD SPECIMEN Ordering Facility: [facility] Address: [address] [place] [address] Performed By: #### 2 857-1 #### [facility] CLIA [id number] [address] [place] [address] [place] ALBUMIN/CREATININE RATIO, UR INEon 12-01-2023 Albumin DL <= 20 mg/L (U) [Mass/Vol] 129.3 mg/L Normal [facility] Comment on above: Order Comment: Speci men Type: BLOOD SPECIMEN Ordering Facility: [facility] Address: [address] [place] [address] Performed By: #### 2 857-1 #### [facility] CLIA [id number] [address] [place], [place] [address] [place] Albumin/Creatinine (U) [Mass ratio] 190 mg/g High <30 [facility] Comment on above: Order Comment: Marilyn cartwright Type: BLOOD SPECIMEN Ordering Facility: [facility] Address: [address] [place] [address] Result Comment: Adul t Male and Female Nephrotic Criteria: <30 mg/g is considered normal to mildly increased 30-300 mg/g is considered moderately increased >300 mg/g is considered severely increased KDIGO. (2013). KDIGO 2012 Clinical Practice Guideline for the Evaluation and Management of Chronic Kidney Disease. Official Journal of the International Society of Nephrology, 3(1), 1-150. Performed By: #### 2 857-1 #### [facility] CLIA [id number] [address] [place] [address] [place] Creatinine (U) [Mass/Vol] 68.0 mg/dL Normal 20.0-300.0 [facility] Comment on above: Order Comment: Marilyn cartwright Type: BLOOD SPECIMEN [facility] Address: [address] [place] [address] Performed By: #### 2 857-1 #### [facility] CLIA [id number] [address] [place] [address] [place] CBC W Auto Differential pane l (Bld)on 12-01-2023 Basophils (Bld) [#/Vol] 0.07 10*3/uL [facility] Basophils/100 WBC (Bld) 0.8 % [facility] Differential cell count method Nom (Bld) Auto [facility] Eosinophils (Bld) [#/Vol] 0.60 10*3/uL High [facility] Eosinophils/100 WBC (Bld) 6.9 % [facility] Erythrocyte distribution width (RBC) [Ratio] 13.3 % 11.5 - 15.0 % [facility] Hematocrit (Bld) [Volume fraction] 36.3 % Low 39.0 - 51.0 % [facility] Hemoglobin (Bld) [Mass/Vol] 12.3 g/dL Low 13.0 - 17.0 g/dL [facility] Immature granulocytes (Bld) [#/Vol] 0.04 10*3/[facility]L [facility] Immature granulocytes/100 WBC (Bld) 0.5 % [facility] Interpretation and review of laboratory results Abnormal [facility] Lymphocytes (Bld) [#/Vol] 2.09 10*3/uL [facility] Lymphocytes/100 WBC (Bld) 24.1 % [facility] MCH (RBC) [Entitic mass] 31.7 pg 26.0 - 34.0 pg [facility] MCHC (RBC) [Mass/Vol] 33.9 g/dL 30.5 - 36.0 g/dL [facility] MCV (RBC) [Entitic vol] 93.6 fL 80.0 - 100.0 fL [facility] Monocytes (Bld) [#/Vol] 1.05 10*3/uL High [facility] Monocytes/100 WBC (Bld) 12.1 % [facility] Neutrophils (Bld) [#/Vol] 4.84 10*3/uL [facility] Neutrophils/100 WBC (Bld) 55.6 % [facility] Nucleated RBC (Bld) [#/Vol] [facility] Nucleated RBC/100 WBC (Bld) [Ratio] 0.0 % /100 WBC [facility] Platelet mean volume (Bld) [Entitic vol] 9.6 fL 9.0 - 12.7 fL [facility] Platelets (Bld) [#/Vol] 233 10*3/uL [facility] RBC (Bld) [#/Vol] 3.88 10*6/uL Low 4.20 - 6.00 m/uL [facility] WBC (Bld) [#/Vol] 8.69 10*3/uL [facility] Basophils (Bld) [#/Vol] 0.07 10*3/uL Normal <0.11 [facility] Comment on above: Order Comment: Speci men Type: BLOOD SPECIMENOrdering Facility: [facility] Address: [address] [place] [address] Performed By: #### 5 7021-8 ####[facility] [id number] [place] [address] Basophils/100 WBC (Bld) 0.8 % Normal [facility] Comment on above: Order Comment: Speci men Type: BLOOD SPECIMENOrdering Facility: [facility] Address: [address] [place] [address] Performed By: #### 5 7021-8 ####[facility]CLIA [id number] [place] [address] Differential cell count method Nom (Bld) Auto Normal [facility] Comment on above: Order Comment: Speci men Type: BLOOD SPECIMENOrdering Facility: [facility] Address: [address] [place] [address] Performed By: #### 5 7021-8 ####[facility]IA [id number] [place] [address] Eosinophils (Bld) [#/Vol] 0.60 10*3/uL High <0.46 [facility] Comment on above: Order Comment: Speci men Type: BLOOD SPECIMENOrdering Facility: [facility] Address: [address] [place] [address] Performed By: #### 5 7021-8 ####[facility]CLIA [id number] [place] [address] Eosinophils/100 WBC (Bld) 6.9 % Normal [facility] Comment on above: Order Comment: Speci men Type: BLOOD SPECIMENOrdering Facility: [facility] Address: [address] [place] [address] Performed By: #### 5 7021-8 ####[facility]IA [id number] [place] [address] Erythrocyte distribution width (RBC) [Ratio] 13.3 % Normal 11.5-15.0 [facility] Comment on above: Order Comment: Speci men Type: BLOOD SPECIMENOrdering Facility: [facility] Address: [address] [place] [address] Performed By: #### 5 7021-8 ####[facility]CLIA [id number] [place] [address] Hematocrit (Bld) [Volume fraction] 36.3 % Low 39.0-51.0 [facility] Comment on above: Order Comment: Speci men Type: BLOOD SPECIMENOrdering Facility: [facility] Address: [address] [place] [address] Performed By: #### 5 7021-8 ####[facility]CLIA [id number] [place] [address] Hemoglobin (Bld) [Mass/Vol] 12.3 g/dL Low 13.0-17.0 [facility] Comment on above: Order Comment: Speci men Type: BLOOD SPECIMENOrdering Facility: [facility] Address: [address] [place] [address] Performed By: #### 5 7021-8 ####[facility]IA [id number] [place] [address] Immature granulocytes (Bld) [#/Vol] 0.04 10*3/uL Normal <0.10 [facility] Comment on above: Order Comment: Speci men Type: BLOOD SPECIMENOrdering Facility: [facility] Address: [address] [place] [address] Performed By: #### 5 7021-8 ####[facility]IA [id number] [place] [address] Immature granulocytes/100 WBC (Bld) 0.5 % Normal [facility] Comment on above: Order Comment: Speci men Type: BLOOD SPECIMENOrdering Facility: [facility] Address: [address] [place] [address] Performed By: #### 5 7021-8 ####[facility]IA [id number] [place] [address] Lymphocytes (Bld) [#/Vol] 2.09 10*3/uL Normal 1.00-4.00 [facility] Comment on above: Order Comment: Speci men Type: BLOOD SPECIMENOrdering Facility: [facility] Address: [address] [place] [address] Performed By: #### 5 7021-8 ####[facility]CLIA [id number] [place] [address] Lymphocytes/100 WBC (Bld) 24.1 % Normal [facility] Comment on above: Order Comment: Speci men Type: BLOOD SPECIMENOrdering Facility: [facility] Address: [address] [place] [address] Performed By: #### 5 7021-8 ####[facility]CLIA [id number] [place] [address] MCH (RBC) [Entitic mass] 31.7 pg Normal 26.0-34.0 [facility] Comment on above: Order Comment: Speci men Type: BLOOD SPECIMENOrdering Facility: [facility] Address: [address] [place] [address] Performed By: #### 5 7021-8 ####[facility]CLIA [id number] [place] [address] MCHC (RBC) [Mass/Vol] 33.9 g/dL Normal 30.5-36.0 [facility] Comment on above: Order Comment: Speci men Type: BLOOD SPECIMENOrdering Facility: [facility] Address: [address] [place] [address] Performed By: #### 5 7021-8 ####[facility]IA [id number] [place] [address] MCV (RBC) [Entitic vol] 93.6 fL Normal 80.0-100.0 [facility] Comment on above: Order Comment: Speci men Type: BLOOD SPECIMENOrdering Facility: [facility] Address: [address] [place] [address] Performed By: #### 5 7021-8 ####[facility] LABCLIA [id number] [place] [address] Monocytes (Bld) [#/Vol] 1.05 10*3/uL High <0.87 [facility] Comment on above: Order Comment: Speci men Type: BLOOD SPECIMENOrdering Facility: [facility] Address: [address] [place] [address] Performed By: #### 5 7021-8 ####[facility]CLIA [id number] [place] [address] Monocytes/100 WBC (Bld) 12.1 % Normal [facility] Comment on above: Order Comment: Speci men Type: BLOOD SPECIMENOrdering Facility: [facility] Address: [address] [place] [address] Performed By: #### 5 7021-8 ####[facility]CLIA [id number] [place] [address] Neutrophils (Bld) [#/Vol] 4.84 10*3/uL Normal 1.45-7.50 [facility] Comment on above: Order Comment: Speci men Type: BLOOD SPECIMENOrdering Facility: [facility] Address: [address] [place] [address] Performed By: #### 5 7021-8 ####[facility]CLIA [id number] [place] [address] Neutrophils/100 WBC (Bld) 55.6 % Normal [facility] Comment on above: Order Comment: Speci men Type: BLOOD SPECIMENOrdering Facility: [facility] Address: [address] [place] [address] Performed By: #### 5 7021-8 ####[facility]CLIA [id number] [place] [address] Nucleated RBC (Bld) [#/Vol] 10*3/uL Normal <0.01 [facility] Comment on above: Order Comment: Speci men Type: BLOOD SPECIMENOrdering Facility: [facility] Address: [address] [place] [address] Performed By: #### 5 7021-8 ####[facility]CLIA [id number] [place] [address] Nucleated RBC/100 WBC (Bld) [Ratio] 0.0 /100 WBC Normal [facility] Comment on above: Order Comment: Speci men Type: BLOOD SPECIMENOrdering Facility: [facility] Address: [address] [place] [address] Performed By: #### 5 7021-8 ####[facility]CLIA [id number] [place] [address] Platelet mean volume (Bld) [Entitic vol] 9.6 fL Normal 9.0-12.7 [facility] Comment on above: Order Comment: Speci men Type: BLOOD SPECIMENOrdering Facility: [facility] Address: [address] [place] [address] Performed By: #### 5 7021-8 ####[facility]CLIA [id number] [place] [address] Platelets (Bld) [#/Vol] 233 10*3/uL Normal 150-400 [facility] Comment on above: Order Comment: Speci men Type: BLOOD SPECIMENOrdering Facility: [facility] Address: [address] [place] [address] Performed By: #### 5 7021-8 ####[facility]CLIA [id number] [place] [address] RBC (Bld) [#/Vol] 3.88 10*6/uL Low 4.20-6.00 [facility] Comment on above: Order Comment: Speci men Type: BLOOD SPECIMENOrdering Facility: [facility] Address: [address] [place] [address] Performed By: #### 5 7021-8 ####[facility]CLIA [id number] [place] [address] WBC (Bld) [#/Vol] 8.69 10*3/uL Normal 3.70-11.00 [facility] Comment on above: Order Comment: Speci men Type: BLOOD SPECIMENOrdering Facility: [facility] Address: [address] [place] [id number] Performed By: #### 5 7021-8 ####[facility] LABCLIA [id number] [place] [address] Comprehensive metabolic 2000 panelOrdered By: Adilia Joyce on 12-01-2023 Albumin [Mass/Vol] 4.3 g/dL 3.9 - 4.9 g/dL [facility] ALP [Catalytic activity/Vol] 79 U/L 38 - 113 U/L [facility] ALT [Catalytic activity/Vol] 12 U/L 10 - 54 U/L [facility] Anion gap [Moles/Vol] 12 mmol/L 8 - 15 mmol/L [facility] AST [Catalytic activity/Vol] 14 U/L 14 - 40 U/L [facility] Bilirubin [Mass/Vol] 0.5 mg/dL 0.2 - 1 .3 mg/dL [facility] Calcium [Mass/Vol] 9.6 mg/dL 8.5 - 10. 2 mg/dL [facility] Chloride [Moles/Vol] 98 mmol/L 98 - 10 7 mmol/L [facility] CO2 [Moles/Vol] 28 mmol/L 22 - 30 mmol/L [facility] Creatinine [Mass/Vol] 1.74 mg/dL High 0.73 - 1.22 mg/dL [facility] GFR/1.73 sq M.predicted among non-blacks MDRD (S/P/Bld) [Vol rate/Area] 37 mL/min/{1.73_m2} Low - PINF [facility] Comment on above: Estimated Glomerular Filtration Rate (eGFR) is calculated using the 2020 CKD-EPI creatinine equation. This equation utilizes serum creatinine, sex, and age as parameters. The creatinine assay has traceable calibration to isotope dilution-mass spectrometry. Refer to KDIGO guidelines for clinical interpretation. In patients with unstable renal function, e.g. those with acute kidney injury, the eGFR may not accurately reflect actual GFR. Glucose [Mass/Vol] 124 mg/dL High 74 - 99 mg/dL [facility] Comment on above: The [place] Diabete s Association (ADA) provides guidance for cutoff values for fasting glucose and random glucose. The ADA defines fasting as no caloric intake for at least 8 hours. Fasting plasma glucose results between 100 to 125 mg/dL indicate increased risk for diabetes (prediabetes). Fasting plasma glucose results greater than or equal to 126 mg/dL meet the criteria for diagnosis of diabetes. In the absence of unequivocal hyperglycemia, results should be confirmed by repeat testing. In a patient with classic symptoms of hyperglycemia or hyperglycemic crisis, random plasma glucose results greater than or equal to 200 mg/dL meet the criteria for diagnosis of diabetes. Reference: Standards of Medical Care in Diabetes 2016, [place] Diabetes Association. Diabetes Care. 2016.39(Suppl 1). Interpretation and review of laboratory results Abnormal [facility] Potassium [Moles/Vol] 5.0 mmol/L 3.7 - 5.1 mmol/L [facility] Protein [Mass/Vol] 6.9 g/dL 6.3 - 8.0 g/dL [facility] Sodium [Moles/Vol] 138 mmol/L 136 - 144 mmol/L [facility] Urea nitrogen [Mass/Vol] 39 mg/dL High 9 - 24 mg/dL [facility] Comprehensive metabolic 2000 panelon 12-01-2023 Albumin [Mass/Vol] 4.3 g/dL Normal 3.9-4.9 [facility] Comment on above: Order Comment: Speci men Type: BLOOD SPECIMENOrdering Facility: [facility] Address: [address] [place] [address] Performed By: #### 2 4323-8 ####[facility]CLIA [id number] [place] [address] ALP [Catalytic activity/Vol] 79 U/L Normal 38-113 [facility] Comment on above: Order Comment: Speci men Type: BLOOD SPECIMENOrdering Facility: [facility] Address: [address] [place] [address] Performed By: #### 2 4323-8 ####[facility]CLIA [id number] [place] [address] ALT [Catalytic activity/Vol] 12 U/L Normal 10-54 [facility] Comment on above: Order Comment: Speci men Type: BLOOD SPECIMENOrdering Facility: [facility] Address: [address] [place] [address] Performed By: #### 2 4323-8 ####[facility]CLIA [id number] [place] [address] Anion gap [Moles/Vol] 12 mmol/L Normal 8-15 [facility] Comment on above: Order Comment: Speci men Type: BLOOD SPECIMENOrdering Facility: [facility] Address: [address] [place] [address] Performed By: #### 2 4323-8 ####[facility] LABCLIA [id number] [place] [address] AST [Catalytic activity/Vol] 14 U/L Normal 14-40 [facility] Comment on above: Order Comment: Speci men Type: BLOOD SPECIMENOrdering Facility: [facility] Address: [address] [place] [address] Performed By: #### 2 4323-8 ####[facility] LABCLIA [id number] [place] [address] Bilirubin [Mass/Vol] 0.5 mg/dL Normal 0.2-1.3 [facility] Comment on above: Order Comment: Speci men Type: BLOOD SPECIMENOrdering Facility: [facility] Address: [address] [place] [address] Performed By: #### 2 4323-8 ####[facility] LABCLIA [id number] [place] [address] Calcium [Mass/Vol] 9.6 mg/dL Normal 8.5-10.2 [facility] Comment on above: Order Comment: Speci men Type: BLOOD SPECIMENOrdering Facility: [facility] Address: [address] [place] [address] Performed By: #### 2 4323-8 ####[facility] LABCLIA [id number] [place] [address] Chloride [Moles/Vol] 98 mmol/L Normal 98-107 [facility] Comment on above: Order Comment: Speci men Type: BLOOD SPECIMENOrdering Facility: [facility] Address: [address] [place] [address] Performed By: #### 2 4323-8 ####[facility] LABCLIA [id number] [place] [address] CO2 [Moles/Vol] 28 mmol/L Normal 22-30 [facility] Comment on above: Order Comment: Speci men Type: BLOOD SPECIMENOrdering Facility: [facility] Address: [address] [place] [address] Performed By: #### 2 4323-8 ####[facility] LABCLIA [id number] [place] [address] Creatinine [Mass/Vol] 1.74 mg/dL High 0.73-1.22 [facility] Comment on above: Order Comment: Speci men Type: BLOOD SPECIMENOrdering Facility: [facility] Address: [address] [place] [address] Performed By: #### 2 4323-8 ####[facility] LABCLIA [id number] [place] [address] Creatinine and Glomerular filtration rate.predicted panel (S/P/Bld) 37 mL/min/1.73m??? Low >=60 [facility] Comment on above: Order Comment: Speci men Type: BLOOD SPECIMENOrdering Facility: [facility] Address: [address] [place] [address] Result Comment: Vero mated Glomerular Filtration Rate (eGFR) is calculated using the 2020 CKD-EPI creatinine equation. This equation utilizes serum creatinine, sex, and age as parameters. The creatinine assay has traceable calibration to isotope dilution-mass spectrometry. Refer to KDIGO guidelines for clinical interpretation. In patients with unstable renal function, e.g. those with acute kidney injury, the eGFR may not accurately reflect actual GFR. Performed By: #### 2 4323-8 ####[facility] LABCLIA [id number] [place] [address] Glucose [Mass/Vol] 124 mg/dL High 74-99 [facility] Comment on above: Order Comment: Speci men Type: BLOOD SPECIMENOrdering Facility: [facility] Address: [address] [place], [place] [address] Result Comment: The [place] Diabetes Association (ADA) provides guidance for cutoff values for fasting glucose and random glucose. The ADA defines fasting as no caloric intake for at least 8 hours. Fasting plasma glucose results between 100 to 125 mg/dL indicate increased risk for diabetes (prediabetes). Fasting plasma glucose results greater than or equal to 126 mg/dL meet the criteria for diagnosis of diabetes. In the absence of unequivocal hyperglycemia, results should be confirmed by repeat testing. In a patient with classic symptoms of hyperglycemia or hyperglycemic crisis, random plasma glucose results greater than or equal to 200 mg/dL meet the criteria for diagnosis of diabetes. Reference: Standards of Medical Care in Diabetes 2016, [place] Diabetes Association. Diabetes Care. 2016.39(Suppl 1). Performed By: #### 2 4323-8 ####[facility] LABCLIA [id number] [place] [address] Potassium [Moles/Vol] 5.0 mmol/L Normal 3.7-5.1 [facility] Comment on above: Order Comment: Speci men Type: BLOOD SPECIMENOrdering Facility: [facility] Address: [address] [place], [place] [address] Performed By: #### 2 4323-8 ####[facility] LABCLIA [id number] [place] [address] Protein [Mass/Vol] 6.9 g/dL Normal 6.3-8.0 [facility] Comment on above: Order Comment: Speci men Type: BLOOD SPECIMENOrdering Facility: [facility] Address: [address] [place], [place] [address] Performed By: #### 2 4323-8 ####[facility] LABCLIA [id number] [place] [address] Sodium [Moles/Vol] 138 mmol/L Normal 136-144 [facility] Comment on above: Order Comment: Speci men Type: BLOOD SPECIMENOrdering Facility: [facility] Address: [address] [place], [place] [address] Performed By: #### 2 4323-8 ####[facility] LABCLIA [id number] [place] [address] Urea nitrogen [Mass/Vol] 39 mg/dL High 9- [facility] Comment on above: Order Comment: Speci men Type: BLOOD SPECIMENOrdering Facility: [facility] Address: [address] [place], [place] [address] Performed By: #### 2 4323-8 ####[facility] LABCLIA [id number] [place] [address] PSA SerPl-ncon 12-01-2023 Prostate specific Ag [Mass/Vol] 1.38 ng/mL Normal <2.60 [facility] Comment on above: Order Comment: Speci men Type: BLOOD SPECIMENOrdering Facility: [facility] Address: [address] [place], [place] [address] Result Comment: Tota l PSA test methodology used is the Electrochemiluminescence Immunoassay by [employer]. Total PSA values by differing methodologies cannot be interchanged. Performed By: #### 2 857-1 ####[facility] LABCLIA [id number] [address] [address] [place] US arterial pvr rest Kevin US arterial pvr rest [facility] [address] [place] [address] [place] [address] Ultrasound Report Signed Patient: Jamel Bonds MR#: [id number] : 1935 Acct:[id number] Age/Sex: 88 / M ADM Date: 11/28/23 Loc: Room: Type: [facility] Attending Dr: Khoa Pittman DPM Ordering Provider: Khoa Pittman DPM Date of Service: 11/28/23 US/US arterial pvr rest LE: I73.9 Copies to: Khoa Pittman DPM LOWER EXTREMITY SEGMENTAL ARTERIAL DOPSCAN [...] IN EITHER LOWER EXTREMITY. Impression dictated by: Amanda Newsome MD11/28/2023 11:38 AM Dictation Location: [place] [address] Tech: Mei Becerra Transcribed By: SAHARA 11/28/23 1138 Dictated By: Amanda Newsome MD 11/28/23 1138 Signed By: 11/28/23 1138 D[facility] Jhon 11-14-2023 CNOV Office Visit (ENDOLN ) -- JAMEL BONDS ([id number]) 1935 M Date Time Provider Department 11/14/23 2:00 PM ARNOLD HANDLEY ENDOLN During your visit today, we recorded the following information about you: Pulse Blood pressure Weight 60/minute 137/60 79.8 kg Arnold Handley APRN.CANDACE 11/14/2023 2:30 PM Signed Endocrinology Follow-up History of Present Illness Jamel Bonds is a 87 year old male presents today for follow up of DM Type 2 and hypothyroidism. Patient reports switching how he was taking his insulin to prior to meals (as discussed at [facility]). His HbA1c has improved from 8.9% to 7.3%. No acute complaints today. On LT4 25 mcg daily, takes appropriately. Date of Diagnosis: ~1999 Last HbA1c: Hemoglobin A1C (%) Date Value 05/12/2023 8.9 04/10/2022 8.2 07/10/2021 8.4 04/02/2021 8.4 08/22/2020 7.9 05/16/2020 8.4 10/06/2019 7.8 03/22/2019 8.1 Hemoglobin A1C (POCT) (%) Date Value 11/14/2023 7.3 01/03/2023 8.9 08/09/2022 7.9 11/09/2021 7.9 12/29/2020 8.3 Family history of diabetes: father and maternal [...] cocoa 11-12 PM: Dinner 2 slices of vincentian cheese and ham, Glucerna 5-6 PM: Supper: biggest meal SMBG Frequency of Monitoring: Three times a Day BG Values: 2 week average 163, range 91-254 Hypoglycemia Frequency: none Current DM Related Medications: Current Medications 11/14/2023 DIABETES THERAPIES Medication Dosage Pharm Subclass dapagliflozin propanediol (FARXIGA) 10 mg tablet Take 1 tablet by mouth daily with breakfast. Antihyperglycemic - Sodium Glucose Cotransporter-2 (SGLT2) Inhibitors insulin 70/30 aspart protamine-aspart units/mL (NOVOLOG MIX 70-30) 100 unit/mL (70-30) pen INJECT 38 UNITS [...] mouth once daily. Beta Blockers Cardiac Selective ANTICOAGULANTS Medication Dosage Pharm Subclass heparin 100 unit/mL syrg NURSING USE ONLY: USE FOR IMPLANTED VASCULAR ACCESS DEVICE (IVAD) FLUSH. AMBULATORY/OUTPATIENT: PLEASE REORDER UPON HOSPITAL DISCHARGE May [...] in use. Pharmaceutical Adjuvant - Parenteral Vehicles baclofen (LIORESAL) 10 mg tablet Skeletal Muscle Relaxant - Central Muscle Relaxants blood sugar diagnostic (BLOOD GLUCOSE TEST) test strip Check glucose 3 times daily Dx: E11.65 Medical Supplies and DME - Blood Glucose Tests Blood-Glucose Meter (TRUE METRIX GLUCOSE METER) Check glucose 3 times daily Dx: E11.65 Medical Supplies and DME - Glucose Monitoring Test Supplies xhimzel-tdpoieqrv-hbevrlg D3 (OS-BESSY 500+D) 500 mg(1,250mg) -200 unit per tablet Minerals and Electrolytes - Calcium Replacement/Vitamin D Combinations Cholecalciferol, Vitamin D3, 50 mcg (2,000 unit) cap Take 2,000 mg by mouth once daily. Vitamins - D Derivatives citalopram hydrobromide (CELEXA) 10 mg tablet Take 10 mg by mouth once daily. Antidepressant - Selective Serotonin Reuptake Inhibitors (SSRIs) fluticasone (FLONASE) 50 mcg/actuation nasal spray 1 [place] as needed. Nasal Corticosteroids Insulin Reasnor, Disposable, (UNIFINE PENTIPS PLUS) 32 gauge x 5/32 Use with insulin pens 3 times daily Dx: E11.65 Medical Supplies and DME - Insulin Reasnor-Syringes and Admin Supplies Lactobac no.41-Bifidobact no.7 70 mg (3 billion cell) cap Probiotic 1 tab daily Intestinal Claudia Modifiers Lancets (more content not included)... Normal [facility] GLOOKO ON DEMANDon 4 Ordered by an unspec ified provider. [facility] HEMOGLOBIN A1C (POC)on 11-13 HbA1c (Bld) [Mass fraction] 7.3 % Abnormal 4.3 - 5.6 % [facility] Comment on above: Location:[facility], [address] [place] [address], [facility] Point of care (POC) Hemoglobin A1c (HGBA1C) [...] specific diabetes management situations: The POC device tax commissioner provides a normal range of 4.2% to 6.5% for the HGBA1C POC test. However, the [place] Diabetes Association guidelines indicate that patients with [...] anemia) that alter red blood cell lifespan. Interpretation and review of laboratory results Abnormal [facility] OCT MACULA CIRRUS OU (BOTH E YES)on 09-11-2023 [facility] Radiology Study observation (narrative) Apolinar vargas [facility] CBC W Auto Differential pane l (Bld)on 09-08-2023 Basophils (Bld) [#/Vol] 0.07 10*3/uL [facility] Basophils/100 WBC (Bld) 1.0 % [facility] Differential cell count method Nom (Bld) Auto [facility] Eosinophils (Bld) [#/Vol] 0.50 10*3/uL [facility] Eosinophils/100 WBC (Bld) 6.8 % [facility] Erythrocyte distribution width (RBC) [Ratio] 13.5 % 11.5 - 15.0 % [facility] Hematocrit (Bld) [Volume fraction] 37.7 % Low 39.0 - 51.0 % [facility] Hemoglobin (Bld) [Mass/Vol] 12.7 g/dL Low 13.0 - 17.0 g/dL [facility] Immature granulocytes (Bld) [#/Vol] [facility] Immature granulocytes/100 WBC (Bld) 0.3 % [facility] Interpretation and review of laboratory results Abnormal [facility] Lymphocytes (Bld) [#/Vol] 1.78 10*3/uL [facility] Lymphocytes/100 WBC (Bld) 24.2 % [facility] MCH (RBC) [Entitic mass] 31.1 pg 26.0 - 34.0 pg [facility] MCHC (RBC) [Mass/Vol] 33.7 g/dL 30.5 - 36.0 g/dL [facility] MCV (RBC) [Entitic vol] 92.4 fL 80.0 - 100.0 fL [facility] Monocytes (Bld) [#/Vol] 0.90 10*3/uL High [facility] Monocytes/100 WBC (Bld) 12.2 % [facility] Neutrophils (Bld) [#/Vol] 4.09 10*3/uL [facility] Neutrophils/100 WBC (Bld) 55.5 % [facility] Nucleated RBC (Bld) [#/Vol] [facility] Nucleated RBC/100 WBC (Bld) [Ratio] 0.0 % /100 WBC [facility] Platelet mean volume (Bld) [Entitic vol] 9.6 fL 9.0 - 12.7 fL [facility] Platelets (Bld) [#/Vol] 240 10*3/uL [facility] RBC (Bld) [#/Vol] 4.08 10*6/uL Low 4.20 - 6.00 m/uL [facility] WBC (Bld) [#/Vol] 7.36 10*3/uL [facility] Comprehensive metabolic 2000 panelOrdered By: Karen Mustafa on 09-08-2023 Albumin [Mass/Vol] 4.2 g/dL 3.9 - 4.9 g/dL [facility] ALP [Catalytic activity/Vol] 81 U/L 38 - 113 U/L [facility] ALT [Catalytic activity/Vol] 21 U/L 10 - 54 U/L [facility] Anion gap [Moles/Vol] 8 mmol/L 8 - 15 mmol/L [facility] AST [Catalytic activity/Vol] 20 U/L 14 - 40 U/L [facility] Bilirubin [Mass/Vol] 0.4 mg/dL 0.2 - 1 .3 mg/dL [facility] Calcium [Mass/Vol] 10.1 mg/dL 8.5 - 10. 2 mg/dL [facility] Chloride [Moles/Vol] 100 mmol/L 98 - 10 7 mmol/L [facility] CO2 [Moles/Vol] 31 mmol/L High 22 - 30 mmol/L [facility] Creatinine [Mass/Vol] 1.82 mg/dL High 0.73 - 1.22 mg/dL [facility] GFR/1.73 sq M.predicted among non-blacks MDRD (S/P/Bld) [Vol rate/Area] 36 mL/min/{1.73_m2} Low - PINF [facility] Comment on above: Estimated Glomerular Filtration Rate (eGFR) is calculated using the 2020 CKD-EPI creatinine equation. This equation utilizes serum creatinine, sex, and age as parameters. The creatinine assay has traceable calibration to isotope dilution-mass spectrometry. Refer to KDIGO guidelines for clinical interpretation. In patients with unstable renal function, e.g. those with acute kidney injury, the eGFR may not accurately reflect actual GFR. Glucose [Mass/Vol] 198 mg/dL High 74 - 99 mg/dL [facility] Comment on above: The [place] Diabete s Association (ADA) provides guidance for cutoff values for fasting glucose and random glucose. The ADA defines fasting as no caloric intake for at least 8 hours. Fasting plasma glucose results between 100 to 125 mg/dL indicate increased risk for diabetes (prediabetes). Fasting plasma glucose results greater than or equal to 126 mg/dL meet the criteria for diagnosis of diabetes. In the absence of unequivocal hyperglycemia, results should be confirmed by repeat testing. In a patient with classic symptoms of hyperglycemia or hyperglycemic crisis, random plasma glucose results greater than or equal to 200 mg/dL meet the criteria for diagnosis of diabetes. Reference: Standards of Medical Care in Diabetes 2016, [place] Diabetes Association. Diabetes Care. 2016.39(Suppl 1). Interpretation and review of laboratory results Abnormal [facility] Potassium [Moles/Vol] 5.2 mmol/L High 3.7 - 5.1 mmol/L [facility] Protein [Mass/Vol] 7.7 g/dL 6.3 - 8.0 g/dL [facility] Sodium [Moles/Vol] 139 mmol/L 136 - 144 mmol/L [facility] Urea nitrogen [Mass/Vol] 39 mg/dL High 9 - 24 mg/dL [facility] PET+CT Guidance for localiza tion of tumor of Whole body-- W 18F-FDG Aleisha 07-06-2023 IMPRESSION: HEAD/NECK: * No PSMA expressing neoplastic process. CHEST: * No PSMA expressing neoplastic process. ABDOMENS/PELVIS: * PSMA avid uptake at the peripheral zone of the prostate gland with possible extension to the right seminal vesicle, suspicious for neoplasm. * No PSMA expressing neoplastic process elsewhere. MUSCULOSKELETAL: * No PSMA expressing neoplastic process. Transcribe Date/Time: Jul 06 2023 8:06P Dictated by: GEOVANNA AYALA MD This examination was interpreted and the report reviewed and electronically signed by: GEOVANNA AYALA MD on Jul 06 2023 8:12PM EST Thank you for allowing us to participate in the care of your patient. Should there be any questions regarding this interpretation, please call [phone]. If you are unable to reach us at the number above, please feel free to contact [facility] eRadiology at [phone]. DIVISION OF RADIOLOGY * * *Final Report* * * DATE OF EXAM: Jul 03 2023 2:48PM NRN [id number] - NM PET/CT PROSTATE WB / PROCEDURE REASON: multiple diagnoses * * * * Physician Interpretation * * * * RESULT: EXAMINATION: PSMA PET-CT CLINICAL HISTORY: Prostate cancer. TECHNIQUE: Radiopharmaceutical was administered IV followed about 60 minutes later by PET imaging from proximal thighs to skull vertex. Free breathing, low dose CT of the same body region was acquired without IV contrast for attenuation correction and anatomic localization. * CT Dose-Length Product (DLP): 225.9 mGy*cm * CT Dose Reduction Employed: Yes * Radiopharmaceutical dose: 9.4 mCi * Radiopharmaceutical: F-18 FDG COMPARISON: No previous PSMA PET/CT available CORRELATION: CT chest, abdomen pelvis of 01/23/2022 RESULT: REFERENCES: SUV reference values: * Background liver activity: SUVmax 6.9 Stucco Applicator (topogram) images: No additional findings. Notes and limitations: * Standardized uptake values indicate the highest activity concentration (SUVmax) at a given location but can be variable and are not absolute. * Physiologic/non-pathologic uptake is common in salivary glands, lacrimal glands, neural ganglia, liver, spleen, GI tract, and urinary tract. Certain organ systems can have more intense activity, which could confound or obscure some pathology. * Unenhanced imaging is limited for the evaluation of some pathology and the acquired CT was not designed to produce or replace diagnostic CT quality. * PET-CT is often not sensitive for solid pulmonary nodules less than 8 mm. HEAD AND NECK: Head: No abnormal uptake. Neck & Lymph Nodes: No abnormal uptake. Thyroid: No abnormal uptake. CHEST: Lungs & Airways: No abnormal uptake. Pleura & Pericardium: No abnormal uptake. Cardiovascular: No abnormal uptake. Mediastinum & Lymph Nodes: No abnormal uptake. ABDOMEN AND PELVIS: Hepatobiliary: No abnormal uptake. Spleen: No abnormal uptake. Pancreas: No abnormal uptake. Adrenals: No abnormal uptake. Urinary Tract: No abnormal uptake. GI Tract: No abnormal uptake. Peritoneum: No abnormal uptake. Vasculature: No abnormal uptake. Lymph Nodes: * Abdomen (including common iliac): No abnormal uptake. * Pelvis (below common iliac): No abnormal uptake. Prostate & Seminal Vesicles: PSMA avid uptake at the right and left peripheral zone of the prostate gland extending from the mid to apex with possible extension to the right seminal vesicle, SUV 14.5 .Brachytherapy seeds in the prostate. Pelvis (other): No abnormal uptake. MUSCULOSKELETAL: Osseous: No abnormal uptake. Soft Tissues: No abnormal uptake. DIVISION OF RADIOLOGY Provider, [facility] - 07/06/2023 * * *Final Report* * * DATE OF EXAM: Jul 03 2023 2:48PM NRN [id number] - NM PET/CT PROSTATE WB / PROCEDURE REASON: multiple diagnoses * * * * Physician Interpretation * * * * RESULT: EXAMINATION: PSMA PET-CT CLINICAL HISTORY: Prostate cancer. TECHNIQUE: Radiopharmaceutical was administered IV followed about 60 minutes later by PET imaging from proximal thighs to skull vertex. Free breathing, low dose CT of the same body region was acquired without IV contrast for attenuation correction and anatomic localization. * CT Dose-Length Product (DLP): 225.9 mGy*cm * CT Dose Reduction Employed: Yes * Radiopharmaceutical dose: 9.4 mCi * Radiopharmaceutical: F-18 FDG COMPARISON: No previous PSMA PET/CT available CORRELATION: CT chest, abdomen pelvis of 01/23/2022 RESULT: REFERENCES: SUV reference values: * Background liver activity: SUVmax 6.9 Stucco Applicator (topogram) images: No additional findings. Notes and limitations: * Standardized uptake values indicate the highest activity concentration (SUVmax) at a given location but can be variable and are not absolute. * Physiologic/non-pathologic uptake is common in salivary glands, lacrimal glands, neural ganglia, liver, spleen, GI tract, and urinary tract. Certain organ systems can have more intense activity, which could confound or obscure some pathology. * Unenhanced imaging is limited for the evaluation of some pathology and the acquired CT was not designed to produce or replace diagnostic CT quality. * PET-CT is often not sensitive for solid pulmonary nodules less than 8 mm. HEAD AND NECK: Head: No abnormal uptake. Neck & Lymph Nodes: No abnormal uptake. Thyroid: No abnormal uptake. CHEST: Lungs & Airways: No abnormal uptake. Pleura & Pericardium: No abnormal uptake. Cardiovascular: No abnormal uptake. Mediastinum & Lymph Nodes: No abnormal uptake. ABDOMEN AND PELVIS: Hepatobiliary: No abnormal uptake. Spleen: No abnormal uptake. Pancreas: No abnormal uptake. Adrenals: No abnormal uptake. Urinary Tract: No abnormal uptake. GI Tract: No abnormal uptake. Peritoneum: No abnormal uptake. Vasculature: No abnormal uptake. Lymph Nodes: * Abdomen (including common iliac): No abnormal uptake. * Pelvis (below common iliac): No abnormal uptake. Prostate & Seminal Vesicles: PSMA avid uptake at the right and left peripheral zone of the prostate gland extending from the mid to apex with possible extension to the right seminal vesicle, SUV 14.5 .Brachytherapy seeds in the prostate. Pelvis (other): No abnormal uptake. MUSCULOSKELETAL: Osseous: No abnormal uptake. Soft Tissues: No abnormal uptake. IMPRESSION IMPRESSION: HEAD/NECK: * No PSMA expressing neoplastic process. CHEST: * No PSMA expressing neoplastic process. ABDOMENS/PELVIS: * PSMA avid uptake at the peripheral zone of the prostate gland with possible extension to the right seminal vesicle, suspicious for neoplasm. * No PSMA expressing neoplastic process elsewhere. MUSCULOSKELETAL: * No PSMA expressing neoplastic process. Transcribe Date/Time: Jul 06 2023 8:06P Dictated by: GEOVANNA AYALA MD This examination was interpreted and the report reviewed and electronically signed by: GEOVANNA AYALA MD on Jul 06 2023 8:12PM EST Thank you for allowing us to participate in the care of your patient. Should there be any questions regarding this interpretation, please call [phone]. If you are unable to reach us at the number above, please feel free to contact [facility] eRadiology at [phone]. [facility] PET+CT Guidance for localiza tion of tumor of Whole body-- W 18F-FDG IVOrdered By: Ccf Provider on 07-06-2023 [facility] PET+CT Guidance for localiza tion of tumor of Whole body-- W 18F-FDG Aleisha 07-03-2023 Radiology Study observation (narrative) [facility] CBC W Auto Differential pane l (Bld)on 05-12-2023 Basophils (Bld) [#/Vol] 0.06 10*3/uL <0.11 k/uL [facility] Basophils/100 WBC (Bld) 0.7 % [facility] Differential cell count method Nom (Bld) Auto [facility] Eosinophils (Bld) [#/Vol] 0.63 10*3/uL High <0.46 k/uL [facility] Eosinophils/100 WBC (Bld) 7.4 % [facility] Erythrocyte distribution width (RBC) [Ratio] 13.5 % 11.5 - 15.0 % [facility] Hematocrit (Bld) [Volume fraction] 36.6 % Low 39.0 - 51.0 % [facility] Hemoglobin (Bld) [Mass/Vol] 12.2 g/dL Low 13.0 - 17.0 g/dL [facility] Immature granulocytes (Bld) [#/Vol] 0.03 10*3/uL <0.10 k/uL [facility] Immature granulocytes/100 WBC (Bld) 0.4 % [facility] Lymphocytes (Bld) [#/Vol] 1.62 10*3/uL 1.00 - 4.00 k/uL [facility] Lymphocytes/100 WBC (Bld) 19.0 % [facility] MCH (RBC) [Entitic mass] 30.9 pg 26.0 - 34.0 pg [facility] MCHC (RBC) [Mass/Vol] 33.3 g/dL 30.5 - 36.0 g/dL [facility] MCV (RBC) [Entitic vol] 92.7 fL 80.0 - 100.0 fL [facility] Monocytes (Bld) [#/Vol] 0.87 10*3/uL High <0.87 k/uL [facility] Monocytes/100 WBC (Bld) 10.2 % [facility] Neutrophils (Bld) [#/Vol] 5.30 10*3/uL 1.45 - 7.50 k/uL [facility] Neutrophils/100 WBC (Bld) 62.3 % [facility] Nucleated RBC (Bld) [#/Vol] <0.01 k/uL [facility] Nucleated RBC/100 WBC (Bld) [Ratio] 0.0 /100 WBC [facility] Platelet mean volume (Bld) [Entitic vol] 9.8 fL 9.0 - 12.7 fL [facility] Platelets (Bld) [#/Vol] 231 10*3/uL 150 - 400 k/uL [facility] RBC (Bld) [#/Vol] 3.95 10*6/uL Low 4.20 - 6.00 m/uL [facility] WBC (Bld) [#/Vol] 8.51 10*3/uL 3.70 - 11.00 k/uL [facility] Comprehensive metabolic 2000 panelon 05-12-2023 Albumin [Mass/Vol] 4.3 g/dL 3.9 - 4.9 g/dL [facility] ALP [Catalytic activity/Vol] 82 U/L 38 - 113 U/L [facility] ALT [Catalytic activity/Vol] 25 U/L 10 - 54 U/L [facility] Anion gap [Moles/Vol] 11 mmol/L 9 - 18 mmol/L [facility] AST [Catalytic activity/Vol] 27 U/L 14 - 40 U/L [facility] Bilirubin [Mass/Vol] 0.5 mg/dL 0.2 - 1 .3 mg/dL [facility] Calcium [Mass/Vol] 10.0 mg/dL 8.5 - 10. 2 mg/dL [facility] Chloride [Moles/Vol] 98 mmol/L 97 - 10 5 mmol/L [facility] CO2 [Moles/Vol] 29 mmol/L 22 - 30 mmol/L [facility] Creatinine [Mass/Vol] 1.62 mg/dL High 0.73 - 1.22 mg/dL [facility] Estimated Glomerular Filtration Rate 41 mL/min/1.73m Low >=60 mL/min/1.7 3m [facility] Glucose [Mass/Vol] 107 mg/dL High 74 - 99 mg/dL [facility] Potassium [Moles/Vol] 4.8 mmol/L 3.7 - 5.1 mmol/L [facility] Protein [Mass/Vol] 7.2 g/dL 6.3 - 8.0 g/dL [facility] Sodium [Moles/Vol] 138 mmol/L 136 - 144 mmol/L [facility] Urea nitrogen [Mass/Vol] 37 mg/dL High 9 - 24 mg/dL [facility] HbA1c (Bld)on 05-12-2023 Average glucose Estimated from glycated hemoglobin (Bld) [Mass/Vol] 209 mg/dL [facility] HbA1c (Bld) [Mass fraction] 8.9 % High 4.3 - 5.6 % [facility] Lipid 1996 panelon Cholesterol [Mass/Vol] 139 mg/dL <200 mg/dL [facility] Cholesterol in HDL [Mass/Vol] 30 mg/dL Low >39 mg/dL [facility] Cholesterol in LDL [Mass/Vol] 55 mg/dL <100 mg/dL [facility] Cholesterol in LDL/Cholesterol in HDL [Mass ratio] 1.83 {ratio} <2.54 [facility] Cholesterol in VLDL [Mass/Vol] 54 mg/dL High <30 mg/dL [facility] Cholesterol non HDL [Mass/Vol] 109 mg/dL <130 mg/dL [facility] Cholesterol.total/Lisa sterol in HDL [Mass ratio] 4.63 {ratio} <5.10 [facility] Fasting Time 12 hrs [facility] Triglyceride [Mass/Vol] 272 mg/dL High <150 mg/dL [facility] PSA/PROSTSPECAG DIAGon 05-12 Prostate specific Ag [Mass/Vol] 5.31 ng/mL High <2.60 ng/mL [facility] TSH BLDon 05-12-2023 TSH Qn 3.010 m[IU]/L 0.270 - 4.200 mIU/L [facility] HEMOGLOBIN A1C (POC)on 01-03 HbA1c (Bld) [Mass fraction] 8.9 % Abnormal 4.2 - 5.6 % [facility] Thyrotropin [Units/volume] i n Serum or PlasmaOrdered By: Sean Franklin on 10-22-2022 TSH Qn 2.25 m[IU]/L 0.45-5.33 [facility] Thyroxine (T4) free [Mass/vo lume] in Serum or PlasmaOrdered By: Sean Franklin on 10-22-2022 Free T4 [Mass/Vol] 0.93 ng/dL 0.61-1.12 [facility] Triiodothyronine (T3) Free [ Mass/volume] in Serum or PlasmaOrdered By: Sean Franklin on 10-22-2022 Free T3 [Mass/Vol] 2.70 pg/mL 2.50-3.90 [facility] Office Visit (Cardiology)on 10-18-2022 Follow-up visit Diagnoses/Problems Assessed Hyperlipidemia (272.4) (E78.5) Added by Problem List Migration; 2013-03-18 Essential hypertension (401.9) (I10) Diabetes mellitus (250.00) (E11.9) Anticoagulant long-term use (V58.61) (Z79.01) Overweight with body mass index (BMI) of 26 to 26.9 in adult (278.02,V85.22) (E66.3,Z68.26) Pacemaker (V45.01) (Z95.0) Paroxysmal atrial fibrillation (427.31) (I48.0) Sick sinus syndrome (427.81) (I49.5) Hyperthyroidism (242.90) (E05.90) Never a smoker High risk medication use (V58.69) (Z79.899) Orders Essential hypertension Renew: Losartan Potassium 50 MG Oral Tablet; TAKE 1 TABLET BY MOUTH DAILY High risk medication use, Hyperthyroidism T3 - Free Triiodothyronine, Serum; Status:Active; Requested for:[id number]; T4 - Free Thyroxine, Serum; Status:Active; Requested for:[id number]; TSH - Thyroid Stimulating Hormone, Serum; Status:Active; Requested for:[id number]; Hyperthyroidism Renew: Levothyroxine Sodium 25 MCG Oral Tablet; TAKE 1 TABLET Daily In The Morning Overweight with body mass index (BMI) of 26 to 26.9 in adult Healthy Weight Tips; Status:Complete; Done: [id number] Some eating tips that can help you lose weight.; Status:Complete; Done: [id number] SocHx: Never a smoker Tobacco Use Screening; Status:Complete; Done: [id number] Patient Instructions Please bring all medicines, vitamins, and herbal supplements with you when you come to the office. Prescriptions will not be filled unless you are compliant with your follow up appointments or have a follow up appointment scheduled as per instruction of your physician. Refills should be requested at the time of your visit. labs Follow up in 6 months Pacemaker/Defibrillator Routine Follow-up. Chief Complaint JAMEL BONDS is being seen for a 9 month follow-up of. History of Present Illness Patient returns in follow-up of problems as noted. In the interim he is done well. He denies any arrhythmia symptomatology and he is tolerating rate control with anticoagulant therapy well. Pacemaker checks are reviewed and they demonstrate satisfactory device performance and no underlying arrhythmias that necessitate treatment and/or changes in therapy. His diabetes hypertension and hyperlipidemia are all well controlled. He is tolerating anticoagulant therapy without complication or complaint. He questions, though, the need for thyroid supplementation. He previously was hypothyroid on amiodarone which ultimately was stopped. I suggested that we perform a thyroid panel and determine if in fact levothyroxine could be stopped. If so we will contact him but otherwise he will continue as before. As before he was reminded over the merits of diet and weight loss. Surgical History Problems History of Colonoscopy [id number] Dr Pankaj Foy History of Ear surgery History of Myringotomy - With Ventilating Tube Insertion History of Pacemaker insertion History of Prostate surgery seed implantation History of Surgery Chemotherapy IV - Portable Port History of Tonsillectomy Past Medical History Problems History of Enlarged prostate (600.00) (N40.0) History of High risk medication use (V58.69) (Z79.899) History of bladder problems (V13.09) (Z87.448) History of cataract (V12.49) (Z86.69) History of chest pain (V13.89) (Z87.898) History of diabetes mellitus (V12.29) (Z86.39) History of edema (V13.89) (Z87.898) History of fatigue (V13.89) (Z87.898) History of gastroesophageal reflux (GERD) (V12.79) (Z87.19) History of hypertension (V12.59) (Z86.79) History of hypertension (V12.59) (Z86.79) Resolved Date: 19 Feb 2022 Added by Problem List Migration; 2013-03-18 History of malignant neoplasm (V10.90) (Z85.9) History of snoring (V15.89) (Z87.898) Current Meds Medication NameInstruction Atorvastatin Calcium 40 MG Oral Tablettake 1 tablet by mouth at bedtime Digoxin 125 MCG Oral TabletTAKE 1 TABLET DAILY. Farxiga 10 MG Oral TabletTAKE 1 TABLET BY MOUTH DAILY WITH BREAKFAST Levothyroxine Sodium 25 MCG Oral TabletTAKE 1 TABLET Daily In The Morning Losartan Potassium 50 MG Oral TabletTAKE 1 TABLET BY MOUTH DAILY Lupron SOLN Metoprolol Succinate ER 25 MG Oral Tablet Extended Release 24 HourTake 1 tablet daily NovoLOG Mix 70/30 FlexPen (70-30) 100 UNIT/ML Subcutaneous Suspension Pen-injectorinject 22 units before breakfast and TEN UNITS before supper. Dose can Ofloxacin 0.3 % Ophthalmic SolutionAs directed. Omeprazole 20 MG Oral Capsule Delayed ReleaseTAKE 1 CAPSULE BY MOUTH DAILY Tamsulosin HCl - 0.4 MG Oral CapsuleTake 1 once a day Xarelto 20 MG Oral TabletTake 1 tablet by mouth daily. Allergies Medication Penicillins Allergy; Hives;; Updated By: Yudi Potter; 03/29/2021 10:34:38 PM Social History Problems Caffeine use (V49.89) (Z78.9) coffee, tea, diet soda very little Never a smoker No alcohol use No illicit drug use Review of Systems Constitutional: not feeling tired. Eyes: no eyes (more content not included)... Normal [employer] Tobacco Screening.on 023 Adult depression screening assessment No -[facility] 250 DO Work Phone: Fall risk assessment a) No falls within the last year [facility] [employer] 250 DO Work Phone: Tobacco use status CPHS b) No M [facility] [employer] 250 DO Work Phone: XR SHOULDER RT 2V or >on XR SHOULDER RT 2V or > EXAM: XR SHOULDER RT 2V or > HISTORY: Enthesopathy COMPARISON: None. TECHNIQUE: 4 views FINDINGS: No acute fracture or dislocation. Mild degenerative changes of the acromioclavicular and glenohumeral joints. Unremarkable soft tissues. IMPRESSION: Mild degenerative changes as above. Electronically authenticated by: JOHANN SOOD Date: 2022-08-20 13:10 Normal [facility] XR LSPINE 2_3 VIEWSon 2022 XR LSPINE 2_3 VIEWS EXAMINATION: XR LSPI NE 2_3 VIEWS HISTORY: Lumbosacral spondylosis without myelopathy ; chronic low back pain; no known injury COMPARISON: XR L-spine 09/19/2017 FINDINGS: BONES: Moderate left convex curvature of lumbar spine. No fracture spondylolisthesis. Multilevel mild degenerative facet arthropathy. DISC SPACES: Multilevel mild narrowing. Moderate narrowing L4-L5. Marked narrowing L5-S1. Posterior disc-osteophyte complex suspected at most lumbar levels. PARASPINOUS: Negative. No paraspinous abnormality is seen. OTHER: Negative. IMPRESSION: 1. Multilevel degenerative changes with marked degenerative disc disease suspected at L5-S1. Electronically authenticated by: MAGDALENO STALLINGS Date: 2022-07-15 13:09 Normal [facility] CBC W Auto Differential pane l (Bld)on 05-10-2022 Basophils (Bld) [#/Vol] 0.07 10*3/uL <0.11 k/uL [facility] Basophils/100 WBC (Bld) 0.9 % [facility] Differential cell count method Nom (Bld) Auto [facility] Eosinophils (Bld) [#/Vol] 0.56 10*3/uL High <0.46 k/uL [facility] Eosinophils/100 WBC (Bld) 7.1 % [facility] Erythrocyte distribution width (RBC) [Ratio] 14.7 % 11.5 - 15.0 % [facility] Hematocrit (Bld) [Volume fraction] 36.9 % Low 39.0 - 51.0 % [facility] Hemoglobin (Bld) [Mass/Vol] 12.3 g/dL Low 13.0 - 17.0 g/dL [facility] Immature granulocytes (Bld) [#/Vol] 0.03 10*3/uL <0.10 k/uL [facility] Immature granulocytes/100 WBC (Bld) 0.4 % [facility] Lymphocytes (Bld) [#/Vol] 1.55 10*3/uL 1.00 - 4.00 k/uL [facility] Lymphocytes/100 WBC (Bld) 19.5 % [facility] MCH (RBC) [Entitic mass] 30.8 pg 26.0 - 34.0 pg [facility] MCHC (RBC) [Mass/Vol] 33.3 g/dL 30.5 - 36.0 g/dL [facility] MCV (RBC) [Entitic vol] 92.3 fL 80.0 - 100.0 fL [facility] Monocytes (Bld) [#/Vol] 0.83 10*3/uL <0.87 k/uL [facility] Monocytes/100 WBC (Bld) 10.5 % [facility] Neutrophils (Bld) [#/Vol] 4.90 10*3/uL 1.45 - 7.50 k/uL [facility] Neutrophils/100 WBC (Bld) 61.6 % [facility] Nucleated RBC (Bld) [#/Vol] <0.01 k/uL [facility] Nucleated RBC/100 WBC (Bld) [Ratio] 0.0 /100 WBC [facility] Platelet mean volume (Bld) [Entitic vol] 9.7 fL 9.0 - 12.7 fL [facility] Platelets (Bld) [#/Vol] 240 10*3/uL 150 - 400 k/uL [facility] RBC (Bld) [#/Vol] 4.00 10*6/uL Low 4.20 - 6.00 m/uL [facility] WBC (Bld) [#/Vol] 7.94 10*3/uL 3.70 - 11.00 k/uL [facility] Comprehensive metabolic 2000 panelon 05-10-2022 Albumin [Mass/Vol] 4.2 g/dL 3.9 - 4.9 g/dL [facility] ALP [Catalytic activity/Vol] 75 U/L 38 - 113 U/L [facility] ALT [Catalytic activity/Vol] 17 U/L 10 - 54 U/L [facility] Anion gap [Moles/Vol] 10 mmol/L 9 - 18 mmol/L [facility] AST [Catalytic activity/Vol] 21 U/L 14 - 40 U/L [facility] Bilirubin [Mass/Vol] 0.5 mg/dL 0.2 - 1 .3 mg/dL [facility] Calcium [Mass/Vol] 9.7 mg/dL 8.5 - 10. 2 mg/dL [facility] Chloride [Moles/Vol] 99 mmol/L 97 - 10 5 mmol/L [facility] CO2 [Moles/Vol] 29 mmol/L 22 - 30 mmol/L [facility] Creatinine [Mass/Vol] 1.43 mg/dL High 0.73 - 1.22 mg/dL [facility] Estimated Glomerular Filtration Rate 48 mL/min/1.73m Low >=60 mL/min/1.7 3m [facility] Glucose [Mass/Vol] 140 mg/dL High 74 - 99 mg/dL [facility] Potassium [Moles/Vol] 4.7 mmol/L 3.7 - 5.1 mmol/L [facility] Protein [Mass/Vol] 7.3 g/dL 6.3 - 8.0 g/dL [facility] Sodium [Moles/Vol] 138 mmol/L 136 - 144 mmol/L [facility] Urea nitrogen [Mass/Vol] 37 mg/dL High 9 - 24 mg/dL [facility] Office Visit (Cardiology)on 04-16-2022 Follow-up visit Diagnoses/Problems Assessed Anticoagulant long-term use (V58.61) (Z79.01) Diabetes mellitus (250.00) (E11.9) Essential hypertension (401.9) (I10) Hyperlipidemia (272.4) (E78.5) Added by Problem List Migration; 2013-03-18 Non Hodgkin's lymphoma (202.80) (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) Pacemaker (V45.01) (Z95.0) Paroxysmal atrial fibrillation (427.31) (I48.0) Sick sinus syndrome (427.81) (I49.5) Overweight with body mass index (BMI) of 26 to 26.9 in adult (278.02,V85.22) (E66.3,Z68.26) Never a smoker Orders Overweight with body mass index (BMI) of 26 to 26.9 in adult Healthy Weight Tips; Status:Complete; Done: 16Apr2022 Some eating tips that can help you lose weight.; Status:Complete; Done: 16Apr2022 SocHx: Never a smoker Tobacco Use Screening; Status:Complete; Done: 16Apr2022 Patient Instructions Please bring all medicines, vitamins, and herbal supplements with you when you come to the office. Prescriptions will not be filled unless you are compliant with your follow up appointments or have a follow up appointment scheduled as per instruction of your physician. Refills should be requested at the time of your visit. Pacemaker/Defibrillator follow up per routine Office Visit in 11/01/2022 @ 2:10 pm Chief Complaint JAMEL BONDS is being seen for follow-up of a hospitalization for. [facility] History of Present Illness Patient returns in follow-up of problems as noted. In the interim he was hospitalized for COVID-19 infection with brain fog. He is now improving. He had no cardiovascular problems or complications and an echocardiogram was done in the hospital which was unremarkable. Recent pacemaker checks demonstrate satisfactory device performance and treatment of sick sinus syndrome. Additionally there were minimal breakthroughs of atrial fibrillation and in the event that they occur he is protected with his long-term anticoagulant therapy. Control of cardiovascular risk factors which include diabetes hypertension and hyperlipidemia is reviewed and adequate management and control of these risk factors appears to been accomplished. Because of all the above we suggest no change and follow-up as noted. Again the merits of diet exercise and weight loss were advocated. Current Meds Medication NameInstruction Atorvastatin Calcium 40 MG Oral Tablettake 1 tablet by mouth at bedtime Citalopram Hydrobromide 10 MG Oral TabletTAKE 1 TABLET BY MOUTH NIGHTLY Digoxin 125 MCG Oral TabletTAKE 1 TABLET DAILY. Farxiga 10 MG Oral TabletTAKE 1 TABLET BY MOUTH DAILY WITH BREAKFAST Levothyroxine Sodium 25 MCG Oral TabletTAKE 1 TABLET Daily In The Morning Losartan Potassium 50 MG Oral TabletTAKE 1 TABLET BY MOUTH DAILY Lupron SOLN Metoprolol Succinate ER 25 MG Oral Tablet Extended Release 24 HourTake 1 tablet daily NovoLOG Mix 70/30 FlexPen (70-30) 100 UNIT/ML Subcutaneous Suspension Pen-injectorinject 22 units before breakfast and TEN UNITS before supper. Dose can Ofloxacin 0.3 % Ophthalmic SolutionAs directed. Omeprazole 20 MG Oral Capsule Delayed ReleaseTAKE 1 CAPSULE BY MOUTH DAILY Xarelto 20 MG Oral TabletTake 1 tablet by mouth daily. Allergies Medication Penicillins Allergy; Hives;; Updated By: Yudi Potter; 03/29/2021 10:34:38 PM Social History Problems Caffeine use (V49.89) (Z78.9) coffee, tea, diet soda very little Never a smoker No alcohol use No illicit drug use Review of Systems Constitutional: not feeling tired. Eyes: no eyesight problems. ENT: no hearing loss and no nosebleeds. Cardiovascular: no intermittent leg claudication and as noted in HPI. Respiratory: no chronic cough and no shortness of breath. Gastrointestinal: no change in bowel habits and no blood in stools. Genitourinary: no urinary frequency and no hematuria. Skin: no skin rashes. Neurological: no seizures and no frequent falls. Psychiatric: no depression and not suicidal. All other systems have been reviewed and are negative for complaint. Vitals Vital Signs Recorded: 16Apr2022 09:30AM Heart Rate66, L Radial [id number], LUE, Sitting [id number], LUE, Sitting Height5 ft 7 in Hufbtm641 lb BMI Qmoodawsvm25.63 kg/m2 BSA Calculated1.89 Tobacco Useb) No PHQ-2 Patient Declined/Screening not indicatedYes Falls Screening (Age 18+)a) No falls within the last year Physical Exam Constitutional: alert and in no acute distress. Eyes: no erythema, swelling or discharge from the eye . Neck: neck is supple, symmetric, trachea midline, no masses and no thyromegaly . Pulmonary: no increased work of breathing or signs of respiratory distress and lungs clear to auscultation. Cardiovascular: carotid pulses 2+ bilaterally with no bruit , JVP was normal, no thrills , regular rhythm, normal S1 and S2, no murmurs , pedal pulses 2+ bilaterally and no edema . Abdomen: abdomen non-tender, no masses and no hepatomegaly . Skin: skin warm and dry, normal skin turgor . Psychiatric judgment and insight is normal and oriented to pers (more content not included)... Normal [facility] Tobacco Screening.on 023 Fall risk assessment a) No falls within the last year [facility] 250 DO Work Phone: Tobacco use status CPHS b) No M [facility] 250 DO Work Phone: Tobacco Screening. Yes -[facility] [facility] 250 DO Work Phone: Comprehensive metabolic 2000 panelon 04-10-2022 Albumin [Mass/Vol] 4.1 g/dL 3.9 - 4.9 g/dL [facility] ALP [Catalytic activity/Vol] 86 U/L 38 - 113 U/L [facility] ALT [Catalytic activity/Vol] 19 U/L 10 - 54 U/L [facility] Anion gap [Moles/Vol] 10 mmol/L 9 - 18 mmol/L [facility] AST [Catalytic activity/Vol] 18 U/L 14 - 40 U/L [facility] Bilirubin [Mass/Vol] 0.5 mg/dL 0.2 - 1 .3 mg/dL [facility] Calcium [Mass/Vol] 9.6 mg/dL 8.5 - 10. 2 mg/dL [facility] Chloride [Moles/Vol] 97 mmol/L 97 - 10 5 mmol/L [facility] CO2 [Moles/Vol] 29 mmol/L 22 - 30 mmol/L [facility] Creatinine [Mass/Vol] 1.48 mg/dL High 0.73 - 1.22 mg/dL [facility] Estimated Glomerular Filtration Rate 46 mL/min/1.73m Low >=60 mL/min/1.7 3m [facility] Glucose [Mass/Vol] 165 mg/dL High 74 - 99 mg/dL [facility] Potassium [Moles/Vol] 4.6 mmol/L 3.7 - 5.1 mmol/L [facility] Protein [Mass/Vol] 7.6 g/dL 6.3 - 8.0 g/dL [facility] Sodium [Moles/Vol] 136 mmol/L 136 - 144 mmol/L [facility] Urea nitrogen [Mass/Vol] 39 mg/dL High 9 - 24 mg/dL [facility] Albumin [Mass/volume] in Ser um or PlasmaOrdered By: Aline Pierre on 03-26-2022 Albumin [Mass/Vol] 2.7 g/dL 3.2-5.5 [facility] Basophils Auto (Bld) [#/Vol] Ordered By: Aline Pierre on 03-26-2022 Basophils (Bld) [#/Vol] 0.0 10*3/uL 0.0-0.2 [facility] Basophils/100 WBC Auto (Bld) Ordered By: Aline Pierre on 03-26-2022 Basophils/100 WBC (Bld) 0.4 % . [facility] Creatinine and Glomerular fi ltration rate.predicted panel (S/P/Bld)Ordered By: Aline Pierre on 03-26-2022 Creatinine [Mass/Vol] 1.38 mg/dL 0.64-1.27 [facility] Eosinophils Auto (Bld) [#/Vo l]Ordered By: Aline Pierre on 03-26-2022 Eosinophils (Bld) [#/Vol] 0.3 10*3/uL 0.0-0.45 [facility] Eosinophils/100 WBC Auto (Bl d)Ordered By: Aline Pierre on 03-26-2022 Eosinophils/100 WBC (Bld) 5.7 % . [facility] Erythrocyte distribution wid th Auto (RBC) [Ratio]Ordered By: Aline Pierre on 03-26-2022 Erythrocyte distribution width (RBC) [Ratio] 14.5 % 12.0-14.8 [facility] Estimated glomerular filtrat ion rate (GFR) non- AmericanOrdered By: Aline Pierre on 03-26-2022 GFR/1.73 sq M.predicted among non-blacks MDRD (S/P/Bld) [Vol rate/Area] 49 mL/Min [facility] Globulin Calc (S) [Mass/Vol] Ordered By: Aline Pierre on 03-26-2022 Globulin (S) [Mass/Vol] 3.5 g/dL [facility] Glucose Glucometer (BldC) [M ass/Vol]Ordered By: Aline Pierre on 03-26-2022 Glucose [Mass/Vol] 263 mg/dL [facility] Comment on above: Random Glucose Refer ence Range is dependent on time and content of last meal. Glucose of more than 200 mg/dL in a nonstressed, ambulatory subject supports the diagnosis of Diabetes Mellitus. Hematocrit Auto (Bld) [Volum e fraction]Ordered By: Aline Pierre on 03-26-2022 Hematocrit (Bld) [Volume fraction] 34.9 % 38.8-50.0 [facility] Hemoglobin [Mass/volume] in BloodOrdered By: Aline Pierre on 03-26-2022 Hemoglobin (Bld) [Mass/Vol] 11.9 g/dL 13.0-17.0 [facility] Laboratory - Chemistry and C hemistry - challengeOrdered By: Aline Pierre on 03-26-2022 Cobalamin (Vitamin B12) [Mass/Vol] 811 pg/mL 180-914 [facility] Leukocytes [#/volume] correc stepan for nucleated erythrocytes in Blood by Automated counOrdered By: Aline Pierre on 03-26-2022 WBC corrected for nucl RBC Auto (Bld) [#/Vol] 5.7 10*3/uL 4.1-10.5 [facility] Lymphocytes Auto (Bld) [#/Vo l]Ordered By: Aline Pierre on 03-26-2022 Lymphocytes (Bld) [#/Vol] 1.2 10*3/uL 1.00-4.8 [facility] Lymphocytes/100 WBC Auto (Bl d)Ordered By: Aline Pierre on 03-26-2022 Lymphocytes/100 WBC (Bld) 20.5 % . [facility] MCH Auto (RBC) [Entitic mass ]Ordered By: Aline Pierre on 03-26-2022 MCH (RBC) [Entitic mass] 30.4 pg 27.5-35.2 [facility] MCHC Auto (RBC) [Mass/Vol]Or dered By: Aline Pierre on 03-26-2022 MCHC (RBC) [Mass/Vol] 34.0 g/dL 32.5-35.6 [facility] MCV Auto (RBC) [Entitic vol] Ordered By: Aline Pierre on 03-26-2022 MCV (RBC) [Entitic vol] 89.3 fL 83.5-[address] [facility] Monocyte %Ordered By: Aline Pierre on 03-26-2022 Monocyte % 11 umol/L 11-35 [facility] Monocytes Auto (Bld) [#/Vol] Ordered By: Aline Pierre on 03-26-2022 Monocytes (Bld) [#/Vol] 0.8 10*3/uL 0.0-0.8 [facility] Monocytes/100 WBC Auto (Bld) Ordered By: Aline Pierre on 03-26-2022 Monocytes/100 WBC (Bld) 13.4 % . [facility] Neutrophils Auto (Bld) [#/Vo l]Ordered By: Aline Pierre on 03-26-2022 Neutrophils (Bld) [#/Vol] 3.4 10*3/uL 1.8-7.7 [facility] Neutrophils/100 WBC Auto (Bl d)Ordered By: Aline Pierre on 03-26-2022 Neutrophils/100 WBC (Bld) 60.0 % . [facility] No Panel InformationOrdered By: Aline Pierre on 03-26-2022 25-Hydroxy Vitamin D Total 68.8 ng/mL 30-100 [facility] Comment on above: VITAMIN D STATUS 25( OH)VITAMIN D RANGE (ng/mL) Deficient <20 Insufficient 20 to <30Sufficient 30 to 100Reference: Rhonda MF,Elyssa NC, Ban SHEIKH, et al. Evaluation,treatment, and prevention of vitamin D deficiency; an Endocrine Society clinical practice guideline. JCEM. 2010; 96(7):1911-30. Estimated GFR () 59 mL/Min [facility] Comment on above: GFR estimated refere nce range: According to KDOQI guidelines, <60 ml/min/1.73m2 is sufficient to diagnose a patient with chronic kidney disease. Pharmacy Creatinine Clearance (Chem 37.86 [facility] Bedside Glucose Comment Glu2: cleaned meter [facility] Nucleated erythrocytes [Pres ence] in Blood by Automated countOrdered By: Aline Pierre on 03-26-2022 Nucleated RBC Auto Ql (Bld) 0.1 /100{WBC} 0-0.5 [facility] Platelet mean volume Auto (B ld) [Entitic vol]Ordered By: Aline Pierre on 03-26-2022 Platelet mean volume (Bld) [Entitic vol] 7.7 fL 6.6-10.1 [facility] Platelets Auto (Bld) [#/Vol] Ordered By: Aline Pierre on 03-26-2022 Platelets (Bld) [#/Vol] 299 10*3/uL 150-450 [facility] Protein [Mass/volume] in Ser um or PlasmaOrdered By: Aline Pierre on 03-26-2022 Protein [Mass/Vol] 6.2 g/dL 6.1-7.9 [facility] RBC Auto (Bld) [#/Vol]Ordere d By: Aline Pierre on 03-26-2022 RBC (Bld) [#/Vol] 3.91 10*6/uL 3.90-5.60 [facility] Serum or plasma alanine sung otransferase measurement without P-5'-P (enzymatic activiOrdered By: Aline Pierre on 03-26-2022 ALT No additional P-5'-P [Catalytic activity/Vol] 27 U/L 10-60 [facility] Serum or plasma albumin/glob ulin mass ratioOrdered By: Aline Pierre on 03-26-2022 Albumin/Globulin [Mass ratio] 0.8 {ratio} [facility] Serum or plasma alkaline maryjane sphatase measurement (enzymatic activity/volume)Ordered By: Aline Pierre on 03-26-2022 ALP [Catalytic activity/Vol] 58 U/L 32-92 [facility] Serum or plasma anion gap de terminationOrdered By: Aline Pierre on 03-26-2022 Anion gap [Moles/Vol] 13.1 mmol/L 6.0-15.0 [facility] Serum or plasma aspartate am inotransferase measurement (enzymatic activity/volume)Ordered By: Aline Pierre on 03-26-2022 AST [Catalytic activity/Vol] 29 U/L 10-42 [facility] Serum or plasma calcium radha urement (mass/volume)Ordered By: Aline Pierre on 03-26-2022 Calcium [Mass/Vol] 8.3 mg/dL 8.2-10.2 [facility] Serum or plasma chloride milagros surement (moles/volume)Ordered By: Aline Pierre on 03-26-2022 Chloride [Moles/Vol] 99 mmol/L 95-114 [facility] Serum or plasma glucose radha urement (mass/volume)Ordered By: Aline Pierre on 03-26-2022 Glucose [Mass/Vol] 112 mg/dL 70-100 [facility] Comment on above: ADA recommended refe rence rangeRandom Glucose Reference Range is dependent on time and content of last meal. Glucose of more than 200 mg/dL in a nonstressed, ambulatory subject supports the diagnosis of Diabetes Mellitus. Serum or plasma potassium me asurement (moles/volume)Ordered By: Aline Pierre on 03-26-2022 Potassium [Moles/Vol] 3.9 mmol/L 3.5-5.1 [facility] Serum or plasma sodium measu rement (moles/volume)Ordered By: Aline Pierre on 03-26-2022 Sodium [Moles/Vol] 133 mmol/L 136-146 [facility] Serum or plasma total biliru bin measurement (mass/volume)Ordered By: Aline Pierre on 03-26-2022 Bilirubin [Mass/Vol] 0.6 mg/dL 0.3-1.2 [facility] Serum or plasma total carbon dioxide measurement (moles/volume)Ordered By: Aline Pierre on 03-26-2022 CO2 [Moles/Vol] 24.8 mmol/L 22.0-30.0 [facility] Serum or plasma urea nitroge n measurement (mass/volume)Ordered By: Aline Pierre on 03-26-2022 Urea nitrogen [Mass/Vol] 21 mg/dL 9-23 [facility] TSH DL <= 0.005 mIU/L QnOrde red By: Katy Jerry on 03-26-2022 TSH Qn 2.74 m[IU]/L 0.45-5.33 [facility] WBC Auto (Bld) [#/Vol]Ordere d By: Aline Pierre on 03-26-2022 WBC (Bld) [#/Vol] 5.7 10*3/uL 4.1-10.5 [facility] Troponin I.cardiac [Mass/vol ume] in Serum or Plasma by High sensitivity methodOrdered By: Mikal Terry on 03-24-2022 Troponin I.cardiac High sensitivity method [Mass/Vol] 78 pg/mL 0-20 [facility] Comment on above: Results calledat 060 6 on 03/24/22 Activated partial thrombopla stin time (aPTT) in platelet poor plasma by coagulation aOrdered By: Kenny Pittman on 03-22-2022 aPTT Coag (PPP) [Time] 30.6 s 25.1-36.5 [facility] Automated erythrocytes count in urine sediment (number/area)Ordered By: Kenny Pittman on 03-22-2022 RBC Auto (Urine sed) [#/Area] 5-9 [HPF] 0-4 [facility] Automated leukocytes count i n urine sediment (number/area)Ordered By: Kenny Pittman on 03-22-2022 WBC Auto (Urine sed) [#/Area] 3-4 [HPF] 0-4 [facility] Basophils Auto (Bld) [#/Vol] Ordered By: Kenny Pittman on 03-22-2022 Basophils (Bld) [#/Vol] 0.0 10*3/uL 0.0-0.2 [facility] Basophils Auto (Bld) [#/Vol] Ordered By: Eugene Burger on 03-22-2022 Basophils (Bld) [#/Vol] 0.0 10*3/uL 0.0-0.2 [facility] Basophils/100 WBC Auto (Bld) Ordered By: Kenny Pittman on 03-22-2022 Basophils/100 WBC (Bld) 0.3 % . [facility] Basophils/100 WBC Auto (Bld) Ordered By: Eugene Burger on 03-22-2022 Basophils/100 WBC (Bld) 0.2 % . [facility] Bilirubin Test strip Ql (U)O rdered By: Kenny Pittman on 03-22-2022 Bilirubin Ql (U) Negative Negative [facility] Body fluid albumin measureme nt (mass/volume)Ordered By: Kenny Pittman on 03-22-2022 Albumin (Body fld) [Mass/Vol] 3.4 g/dL 3.2-5.5 [facility] Casts typing in urine sedime nt by light microscopyOrdered By: Kenny Pittman on 03-22-2022 Casts LM Nom (Urine sed) None seen [LPF] None Seen [facility] Coarse granular casts count in urine sediment by microscopy low power field (number/aOrdered By: Kenny Pittman on 03-22-2022 Coarse Granular Casts LM.LPF (Urine sed) [#/Area] 3-4 [LPF] 0-1 [facility] Color Auto (U)Ordered By: Tracy Pittman on 03-22-2022 Color (U) Yellow Yellow [facility] Creatine kinase [Enzymatic a ctivity/volume] in Serum or PlasmaOrdered By: Kenny Pittman on 03-22-2022 CK [Catalytic activity/Vol] 159 U/L 22-269 [facility] Creatinine and Glomerular fi ltration rate.predicted panel (S/P/Bld)Ordered By: Kenny Pittman on 03-22-2022 Creatinine [Mass/Vol] 2.21 mg/dL 0.64-1.27 [facility] Creatinine and Glomerular fi ltration rate.predicted panel (S/P/Bld)Ordered By: Kevin Phillips on 03-22-2022 Creatinine [Mass/Vol] 1.88 mg/dL 0.64-1.27 [facility] Eosinophils Auto (Bld) [#/Vo l]Ordered By: Kenny Pittman on 03-22-2022 Eosinophils (Bld) [#/Vol] 0.1 10*3/uL 0.0-0.45 [facility] Eosinophils Auto (Bld) [#/Vo l]Ordered By: Eugene Burger on 03-22-2022 Eosinophils (Bld) [#/Vol] 0.1 10*3/uL 0.0-0.45 [facility] Eosinophils/100 WBC Auto (Bl d)Ordered By: Kenny Pittman on 03-22-2022 Eosinophils/100 WBC (Bld) 0.7 % . [facility] Eosinophils/100 WBC Auto (Bl d)Ordered By: Eugene Burger on 03-22-2022 Eosinophils/100 WBC (Bld) 0.9 % . [facility] Erythrocyte distribution wid th Auto (RBC) [Ratio]Ordered By: Kenny Pittman on 03-22-2022 Erythrocyte distribution width (RBC) [Ratio] 14.7 % 12.0-14.8 [facility] Erythrocyte distribution wid th Auto (RBC) [Ratio]Ordered By: Eugene Burger on 03-22-2022 Erythrocyte distribution width (RBC) [Ratio] 15.1 % 12.0-14.8 [facility] Estimated glomerular filtrat ion rate (GFR) non- AmericanOrdered By: Kenny Pittman on 03-22-2022 GFR/1.73 sq M.predicted among non-blacks MDRD (S/P/Bld) [Vol rate/Area] 28 mL/Min [facility] Estimated glomerular filtrat ion rate (GFR) non- AmericanOrdered By: Kevin Phillips on 03-22-2022 GFR/1.73 sq M.predicted among non-blacks MDRD (S/P/Bld) [Vol rate/Area] 34 mL/Min [facility] Fine granular cast count in urine sediment by microscopy (number/low power field )Ordered By: Kenny Pittman on 03-22-2022 Fine Granular Casts LM.LPF (Urine sed) [#/Area] 1-2 [LPF] 0-1 [facility] Globulin Calc (S) [Mass/Vol] Ordered By: Kenny Pittman on 03-22-2022 Globulin (S) [Mass/Vol] 4.6 g/dL [facility] Glucose Glucometer (BldC) [M ass/Vol]Ordered By: Kenny Pittman on 03-22-2022 Glucose [Mass/Vol] 125 mg/dL [facility] Comment on above: Random Glucose Refer ence Range is dependent on time and content of last meal. Glucose of more than 200 mg/dL in a nonstressed, ambulatory subject supports the diagnosis of Diabetes Mellitus. Glucose Glucometer (BldC) [M ass/Vol]Ordered By: Kevin Phillips on 03-22-2022 Glucose [Mass/Vol] 72 mg/dL [facility] Comment on above: Random Glucose Refer ence Range is dependent on time and content of last meal. Glucose of more than 200 mg/dL in a nonstressed, ambulatory subject supports the diagnosis of Diabetes Mellitus. Hematocrit Auto (Bld) [Volum e fraction]Ordered By: Kenny Pittman on 03-22-2022 Hematocrit (Bld) [Volume fraction] 44.3 % 38.8-50.0 [facility] Hematocrit Auto (Bld) [Volum e fraction]Ordered By: Eugene Burger on 03-22-2022 Hematocrit (Bld) [Volume fraction] 40.0 % 38.8-50.0 [facility] Hemoglobin [Mass/volume] in BloodOrdered By: Kenny Pittman on 03-22-2022 Hemoglobin (Bld) [Mass/Vol] 14.8 g/dL 13.0-17.0 [facility] Hemoglobin [Mass/volume] in BloodOrdered By: Eugene Burger on 03-22-2022 Hemoglobin (Bld) [Mass/Vol] 13.4 g/dL 13.0-17.0 [facility] Ketones Auto test strip (U) [Mass/Vol]Ordered By: Kenny Pittman on 03-22-2022 Ketones (U) [Mass/Vol] Negative Negative Fi [facility] Laboratory - CoagulationOrde red By: Kenny Pittman on 03-22-2022 PT Coag (PPP) [Time] 13.4 s 9.0-12.9 [facility] Laboratory - UrinalysisOrder ed By: Kenny Pittman on 03-22-2022 Hyaline casts LM Ql (Urine sed) 0-8 [LPF] 0-8 [facility] Leukocytes [#/volume] correc stepan for nucleated erythrocytes in Blood by Automated counOrdered By: Kenny Pittman on 03-22-2022 WBC corrected for nucl RBC Auto (Bld) [#/Vol] 8.8 10*3/uL 4.1-10.5 [facility] Leukocytes [#/volume] correc stepan for nucleated erythrocytes in Blood by Automated counOrdered By: Eugene Burger on 03-22-2022 WBC corrected for nucl RBC Auto (Bld) [#/Vol] 7.4 10*3/uL 4.1-10.5 [facility] Lymphocytes Auto (Bld) [#/Vo l]Ordered By: Kenny Pittman on 03-22-2022 Lymphocytes (Bld) [#/Vol] 1.0 10*3/uL 1.00-4.8 [facility] Lymphocytes Auto (Bld) [#/Vo l]Ordered By: Eugene Burger on 03-22-2022 Lymphocytes (Bld) [#/Vol] 1.1 10*3/uL 1.00-4.8 [facility] Lymphocytes/100 WBC Auto (Bl d)Ordered By: Kenny Pittman on 03-22-2022 Lymphocytes/100 WBC (Bld) 11.4 % . [facility] Lymphocytes/100 WBC Auto (Bl d)Ordered By: Eugene Burger on 03-22-2022 Lymphocytes/100 WBC (Bld) 14.6 % . [facility] MCH Auto (RBC) [Entitic mass ]Ordered By: Kenny Pittman on 03-22-2022 MCH (RBC) [Entitic mass] 30.1 pg 27.5-35.2 [facility] MCH Auto (RBC) [Entitic mass ]Ordered By: Eugene Burger on 03-22-2022 MCH (RBC) [Entitic mass] 30.3 pg 27.5-35.2 [facility] MCHC Auto (RBC) [Mass/Vol]Or dered By: Kenyn Pittman on 03-22-2022 MCHC (RBC) [Mass/Vol] 33.3 g/dL 32.5-35.6 [facility] MCHC Auto (RBC) [Mass/Vol]Or dered By: Eugene Burger on 03-22-2022 MCHC (RBC) [Mass/Vol] 33.5 g/dL 32.5-35.6 [facility] MCV Auto (RBC) [Entitic vol] Ordered By: Kenny Pittman on 03-22-2022 MCV (RBC) [Entitic vol] 90.5 fL 83.5-[address] [facility] MCV Auto (RBC) [Entitic vol] Ordered By: Eugene Burger on 03-22-2022 MCV (RBC) [Entitic vol] 90.7 fL 83.5-[address] [facility] Monocyte distribution width [Entitic volume] in Blood by AutomatedOrdered By: Kenny Pittman on 03-22-2022 Monocyte distribution width Auto (Bld) [Entitic vol] 27.64 % 0.00-20.00 [facility] Comment on above: For adults in ED, MD W > 20.0 may be associated with a higher risk of sepsis during the first 12 hrs of hospital admission Monocytes Auto (Bld) [#/Vol] Ordered By: Kenny Pittman on 03-22-2022 Monocytes (Bld) [#/Vol] 1.3 10*3/uL 0.0-0.8 [facility] Monocytes Auto (Bld) [#/Vol] Ordered By: Eugene Burger on 03-22-2022 Monocytes (Bld) [#/Vol] 1.1 10*3/uL 0.0-0.8 [facility] Monocytes/100 WBC Auto (Bld) Ordered By: Kenny Pittman on 03-22-2022 Monocytes/100 WBC (Bld) 15.0 % . [facility] Monocytes/100 WBC Auto (Bld) Ordered By: Eugene Burger on 03-22-2022 Monocytes/100 WBC (Bld) 14.9 % . [facility] Neutrophils Auto (Bld) [#/Vo l]Ordered By: Kenny Pittman on 03-22-2022 Neutrophils (Bld) [#/Vol] 6.4 10*3/uL 1.8-7.7 [facility] Neutrophils Auto (Bld) [#/Vo l]Ordered By: Eugene Burger on 03-22-2022 Neutrophils (Bld) [#/Vol] 5.1 10*3/uL 1.8-7.7 [facility] Neutrophils/100 WBC Auto (Bl d)Ordered By: Kenny Pittman on 03-22-2022 Neutrophils/100 WBC (Bld) 72.6 % . [facility] Neutrophils/100 WBC Auto (Bl d)Ordered By: Eugene Burger on 03-22-2022 Neutrophils/100 WBC (Bld) 69.4 % . [facility] Nitrite Test strip Ql (U)Ord ered By: Kenny Pittman on 03-22-2022 Nitrite Ql (U) Negative Negative [facility] No Panel InformationOrdered By: Kenny Pittman on 03-22-2022 Estimated GFR () 34 mL/Min [facility] Comment on above: GFR estimated refere nce range: According to KDOQI guidelines, <60 ml/min/1.73m2 is sufficient to diagnose a patient with chronic kidney disease. Pharmacy Creatinine Clearance (Chem 25.80 [facility] No Panel InformationOrdered By: Kevin Phillips on 03-22-2022 Bedside Glucose Comment Glu2: cleaned meter [facility] Estimated GFR () 41 mL/Min [facility] Comment on above: GFR estimated refere nce range: According to KDOQI guidelines, <60 ml/min/1.73m2 is sufficient to diagnose a patient with chronic kidney disease. Pharmacy Creatinine Clearance (Chem 28.73 [facility] Nucleated erythrocytes [Pres ence] in Blood by Automated countOrdered By: Kenny Pittman on 03-22-2022 Nucleated RBC Auto Ql (Bld) 0.2 /100{WBC} 0-0.5 [facility] Nucleated erythrocytes [Pres ence] in Blood by Automated countOrdered By: Eugene Burger on 03-22-2022 Nucleated RBC Auto Ql (Bld) 0.2 /100{WBC} 0-0.5 [facility] Platelet mean volume Auto (B ld) [Entitic vol]Ordered By: Kenny Pittman on 03-22-2022 Platelet mean volume (Bld) [Entitic vol] 7.5 fL 6.6-10.1 [facility] Platelet mean volume Auto (B ld) [Entitic vol]Ordered By: Eugene Burger on 03-22-2022 Platelet mean volume (Bld) [Entitic vol] 7.9 fL 6.6-10.1 [facility] Platelet poor plasma interna tional normalized ratio (INR) by coagulation assay (relatOrdered By: Kenny Pittman on 03-22-2022 INR Coag (PPP) [Relative time] 1.2 {INR} [facility] Comment on above: INR Therapeutic Rang e A) Pre- and Peroperative OAT started two weeks before surgery. NOT HIP SURGERY: 1.5 - 2.5 HIP SURGERY: 2 - 3B) Primary and secondary prevention of venous THROMBOSIS: 2 - 3C) Active venous thrombosis, pulmonary embolismand prevention of recurrent venous thrombosis: 2 - 3D) Prevention of arterial thromboembolismincluding patients with mechanical heart valves: 3 - 4.5 Platelets Auto (Bld) [#/Vol] Ordered By: Kenny Pittman on 03-22-2022 Platelets (Bld) [#/Vol] 257 10*3/uL 150-450 [facility] Platelets Auto (Bld) [#/Vol] Ordered By: Eugene Burger on 03-22-2022 Platelets (Bld) [#/Vol] 232 10*3/uL 150-450 [facility] Protein Auto test strip (U) [Mass/Vol]Ordered By: Kenny Pittman on 03-22-2022 Protein (U) [Mass/Vol] 300 mg/dL Negative [facility] Protein [Mass/volume] in Ser um or PlasmaOrdered By: Kenny Pittman on 03-22-2022 Protein [Mass/Vol] 8.0 g/dL 6.1-7.9 [facility] RBC Auto (Bld) [#/Vol]Ordere d By: Kenny Pittman on 03-22-2022 RBC (Bld) [#/Vol] 4.90 10*6/uL 3.90-5.60 [facility] RBC Auto (Bld) [#/Vol]Ordere d By: Eugene Burger on 03-22-2022 RBC (Bld) [#/Vol] 4.42 10*6/uL 3.90-5.60 [facility] Serum or plasma alanine sung otransferase measurement without P-5'-P (enzymatic activiOrdered By: Kenny Pittman on 03-22-2022 ALT No additional P-5'-P [Catalytic activity/Vol] 24 U/L 1060 [facility] Serum or plasma albumin/glob ulin mass ratioOrdered By: Kenny Pittman on 03-22-2022 Albumin/Globulin [Mass ratio] 0.7 {ratio} [facility] Serum or plasma alkaline maryjane sphatase measurement (enzymatic activity/volume)Ordered By: Kenny Pittman on 03-22-2022 ALP [Catalytic activity/Vol] 75 U/L [facility] Serum or plasma anion gap de terminationOrdered By: Kenny Pittman on 03-22-2022 Anion gap [Moles/Vol] 23.0 mmol/L 6.0-15.0 [facility] Serum or plasma anion gap de terminationOrdered By: Kevin Phillips on 03-22-2022 Anion gap [Moles/Vol] 15.0 mmol/L 6.0-15.0 [facility] Serum or plasma aspartate am inotransferase measurement (enzymatic activity/volume)Ordered By: Kenny Pittman on 03-22-2022 AST [Catalytic activity/Vol] 35 U/L 10-42 [facility] Serum or plasma calcium radha urement (mass/volume)Ordered By: Kenny Pittman on 03-22-2022 Calcium [Mass/Vol] 8.6 mg/dL 8.2-10.2 [facility] Serum or plasma calcium radha urement (mass/volume)Ordered By: Kevin Phillips on 03-22-2022 Calcium [Mass/Vol] 8.1 mg/dL 8.2-10.2 [facility] Serum or plasma chloride milagros surement (moles/volume)Ordered By: Kenny Pittman on 03-22-2022 Chloride [Moles/Vol] 90 mmol/L 95-114 [facility] Serum or plasma chloride milagros surement (moles/volume)Ordered By: Kevin Phillips on 03-22-2022 Chloride [Moles/Vol] 95 mmol/L 95-114 [facility] Serum or plasma creatine kin ase MB (CKMB)/total creatine kinase (CK) ratio by calculaOrdered By: Kenny Pittman on 03-22-2022 CK.MB Calc [Catalytic fraction] 1.5 % 0.00-2.50 [facility] Serum or plasma creatine kin ase MB measurement (mass/volume)Ordered By: Kenny Pittman on 03-22-2022 CK.MB [Mass/Vol] 2.5 ng/mL 0.6-6.3 [facility] Serum or plasma glucose radha urement (mass/volume)Ordered By: Kenny Pittman on 03-22-2022 Glucose [Mass/Vol] 126 mg/dL 70-100 [facility] Comment on above: Delta: 261 on -[id number] recommended reference rangeRandom Glucose Reference Range is dependent on time and content of last meal. Glucose of more than 200 mg/dL in a nonstressed, ambulatory subject supports the diagnosis of Diabetes Mellitus. Serum or plasma glucose radha urement (mass/volume)Ordered By: Kevin Phillips on 03-22-2022 Glucose [Mass/Vol] 261 mg/dL 70-100 [facility] Comment on above: Delta: 137 on -[id number] recommended reference rangeRandom Glucose Reference Range is dependent on time and content of last meal. Glucose of more than 200 mg/dL in a nonstressed, ambulatory subject supports the diagnosis of Diabetes Mellitus. Serum or plasma potassium me asurement (moles/volume)Ordered By: Kenny Pittman on 03-22-2022 Potassium [Moles/Vol] 3.9 mmol/L 3.5-5.1 [facility] Serum or plasma potassium me asurement (moles/volume)Ordered By: Kevin Phillips on 03-22-2022 Potassium [Moles/Vol] 4.0 mmol/L 3.5-5.1 [facility] Serum or plasma sodium measu rement (moles/volume)Ordered By: Kenny Pittman on 03-22-2022 Sodium [Moles/Vol] 135 mmol/L 136-146 [facility] Serum or plasma sodium measu rement (moles/volume)Ordered By: Kevin Phillips on 03-22-2022 Sodium [Moles/Vol] 132 mmol/L 136-146 [facility] Serum or plasma total biliru bin measurement (mass/volume)Ordered By: Kenny Pittman on 03-22-2022 Bilirubin [Mass/Vol] 1.1 mg/dL 0.3-1.2 [facility] Serum or plasma total carbon dioxide measurement (moles/volume)Ordered By: Kenny Pittman on 03-22-2022 CO2 [Moles/Vol] 25.9 mmol/L 22.0-30.0 [facility] Serum or plasma total carbon dioxide measurement (moles/volume)Ordered By: Kevin Phillips on 03-22-2022 CO2 [Moles/Vol] 26.0 mmol/L 22.0-30.0 [facility] Serum or plasma urea nitroge n measurement (mass/volume)Ordered By: Kenny Pittman on 03-22-2022 Urea nitrogen [Mass/Vol] 35 mg/dL 12-14 [facility] Serum or plasma urea nitroge n measurement (mass/volume)Ordered By: Kevin Phillips on 03-22-2022 Urea nitrogen [Mass/Vol] 35 mg/dL 12-14 [facility] Specific gravity Auto test s trip (U) [Rel density]Ordered By: Kenny Pittman on 03-22-2022 Specific gravity (U) [Rel density] 1.019 1.001-1.03 0 [facility] Squamous epithelial cells de tection in urine sediment by light microscopyOrdered By: Kenny Pittman on 03-22-2022 Epithelial cells.squamous LM Ql (Urine sed) 3-4 [HPF] 0-2 [facility] Troponin I.cardiac [Mass/vol ume] in Serum or Plasma by High sensitivity methodOrdered By: Kenny Pittman on 03-22-2022 Troponin I.cardiac High sensitivity method [Mass/Vol] 156 pg/mL 0-20 [facility] Comment on above: Critical valueresult calledat 1921 on 03/22/22 Urine bacteria detection by automated methodOrdered By: Kenny Pittman on 03-22-2022 Bacteria Auto Ql (U) None seen None Seen [facility] Urine clarity by refractomet ry automatedOrdered By: Kenny Pittman on 03-22-2022 Clarity Refractometry automated (U) Clear Clear [facility] Urine glucose measurement by automated test strip (mass/volume)Ordered By: Kenny Pittman on 03-22-2022 Glucose Auto test strip (U) [Mass/Vol] 500 mg/dL Normal [facility] Urine hemoglobin detection b y automated test stripOrdered By: Kenny Pittman on 03-22-2022 Hemoglobin Auto test strip Ql (U) 1+ Negative [facility] Urine leukocyte esterase det ection by automated test stripOrdered By: Kenny Pittman on 03-22-2022 Leukocyte esterase Auto test strip Ql (U) Negative Negative [facility] Urine sediment renal epithel ial cell count by microscopy (number/high power field)Ordered By: Kenny Pittman on 03-22-2022 Epithelial cells.renal LM.HPF (Urine sed) [#/Area] None seen [HPF] 0-1 [facility] Urobilinogen Auto test strip (U) [Mass/Vol]Ordered By: Kenny Pittman on 03-22-2022 Urobilinogen (U) [Mass/Vol] Normal mg/dL Normal [facility] WBC Auto (Bld) [#/Vol]Ordere d By: Kenny Pittman on 03-22-2022 WBC (Bld) [#/Vol] 8.8 10*3/uL 4.1-10.5 [facility] WBC Auto (Bld) [#/Vol]Ordere d By: Eugene Tao on 03-22-2022 WBC (Bld) [#/Vol] 7.4 10*3/uL 4.1-10.5 [facility] pH Auto test strip (U)Ordere d By: Kenny Pittman on 03-22-2022 pH (U) 5.5 [pH] 5.0-9.0 [facility] COVID-19 Positive/NegativeOr dered By: Kevin Phillips on 03-21-2022 SARS-CoV-2 (COVID-19) N gene TITI+probe Ql (Resp) Positive Negative [facility] Comment on above: Positive results valeriy l only be called to Providers for the following groups of patients: Pre-Surgical Testing, Emergency Room, and Inpatients.Results calledat 1240 on 03/21/22 Testing for SARS-CoV-2 by RT-PCRThis test was developed and its performance characteristics determined by [employer] ([employer]) and validated at the [facility]. This test has not been FDA cleared or approved. This test has been authorized by FDA under an Emergency Use Authorization (EUA). This test has been validated in accordance with the FDA's Guidance Document (Policy for Diagnostics Testing in Laboratories Certified to Perform High Complexity Testing under CLIA prior to Emergency Use Authorization for Coronavirus Disease-2019 during the Public Health Emergency) issued on June 24, 2019. This test is only authorized for the duration of time the declaration that circumstances exist justifying the authorization of the emergency use of in vitro diagnostic tests for detection of SARS-CoV-2 virus and/or diagnosis of COVID-19 infection under section 564(b)(1) of the Act, 21 U.S.C. 360bbb-3(b)(1), unless the authorization is terminated or revoked sooner. Laboratory - Microbiology an d Antimicrobial susceptibilityOrdered By: Kevin Phillips on 03-21-2022 SARS-CoV-2 (COVID-19) RNA TITI+probe Ql (Unsp spec) N/A [facility] Troponin I.cardiac [Mass/vol ume] in Serum or Plasma by High sensitivity methodOrdered By: Eugene Burger on 03-21-2022 Troponin I.cardiac High sensitivity method [Mass/Vol] 130 pg/mL 0-20 [facility] Comment on above: Results calledat 065 5 on 03/21/22 Activated partial thrombopla stin time (aPTT) in platelet poor plasma by coagulation aOrdered By: Bennie Renae on 03-20-2022 aPTT Coag (PPP) [Time] 35.8 s 25.1-36.5 [facility] Albumin [Mass/volume] in Ser um or PlasmaOrdered By: Bennie Renae on 03-20-2022 Albumin [Mass/Vol] 3.3 g/dL 3.2-5.5 [facility] Automated erythrocytes count in urine sediment (number/area)Ordered By: Bennie Renae on 03-20-2022 RBC Auto (Urine sed) [#/Area] 0-1 [HPF] 0-4 [facility] Automated leukocytes count i n urine sediment (number/area)Ordered By: Bennie Renae on 03-20-2022 WBC Auto (Urine sed) [#/Area] 0-1 [HPF] 0-4 [facility] Bilirubin Test strip Ql (U)O rdered By: Bennie Renae on 03-20-2022 Bilirubin Ql (U) Negative Negative [facility] Color Auto (U)Ordered By: Peter Renae on 03-20-2022 Color (U) Yellow Yellow [facility] Globulin Calc (S) [Mass/Vol] Ordered By: Bennie Renae on 03-20-2022 Globulin (S) [Mass/Vol] 3.8 g/dL F [facility] Glucose mean value [Mass/vol ume] in Blood Estimated from glycated hemoglobinOrdered By: Ally Pittman on 03-20-2022 Average glucose Estimated from glycated hemoglobin (Bld) [Mass/Vol] 200 mg/dL [facility] Hemoglobin A1c percentageOrd ered By: Ally Pittman on 03-20-2022 HbA1c (Bld) [Mass fraction] 8.6 % 4.3-5.6 [facility] Comment on above: Increased risk for d iabetes: 5.7 - 6.4diabetes: >6.4glycemic control for adults with diabetes: <7.0 Ketones Auto test strip (U) [Mass/Vol]Ordered By: Bennie Renae on 03-20-2022 Ketones (U) [Mass/Vol] 1+ Negative Fi [facility] Laboratory - Chemistry and C hemistry - challengeOrdered By: Bennie Renae on 03-20-2022 Natriuretic peptide B (Bld) [Mass/Vol] 1720.0 pg/mL 5-100 [facility] Laboratory - CoagulationOrde red By: Bennie Renae on 03-20-2022 PT Coag (PPP) [Time] 15.1 s 9.0-12.9 [facility] Laboratory - UrinalysisOrder ed By: Bennie Renae on 03-20-2022 Hyaline casts LM Ql (Urine sed) None seen [LPF] 0-8 [facility] Monocyte distribution width [Entitic volume] in Blood by AutomatedOrdered By: Bennie Renae on 03-20-2022 Monocyte distribution width Auto (Bld) [Entitic vol] 31.70 % 0.00-20.00 [facility] Comment on above: For adults in ED, MD W > 20.0 may be associated with a higher risk of sepsis during the first 12 hrs of hospital admission Nitrite Test strip Ql (U)Ord ered By: Bennie Renae on 03-20-2022 Nitrite Ql (U) Negative Negative [facility] Platelet poor plasma interna tional normalized ratio (INR) by coagulation assay (relatOrdered By: Bennie Renae on 03-20-2022 INR Coag (PPP) [Relative time] 1.3 {INR} [facility] Comment on above: INR Therapeutic Rang e A) Pre- and Peroperative OAT started two weeks before surgery. NOT HIP SURGERY: 1.5 - 2.5 HIP SURGERY: 2 - 3B) Primary and secondary prevention of venous THROMBOSIS: 2 - 3C) Active venous thrombosis, pulmonary embolismand prevention of recurrent venous thrombosis: 2 - 3D) Prevention of arterial thromboembolismincluding patients with mechanical heart valves: 3 - 4.5 Protein Auto test strip (U) [Mass/Vol]Ordered By: Bennie Renae on 03-20-2022 Protein (U) [Mass/Vol] 300 mg/dL Negative [facility] Protein [Mass/volume] in Ser um or PlasmaOrdered By: Bennie Renae on 03-20-2022 Protein [Mass/Vol] 7.1 g/dL 6.1-7.9 [facility] Serum or plasma alanine sung otransferase measurement without P-5'-P (enzymatic activiOrdered By: Bennie Renae on 03-20-2022 ALT No additional P-5'-P [Catalytic activity/Vol] 23 U/L 10-60 [facility] Serum or plasma albumin/glob ulin mass ratioOrdered By: Bennie Renae on 03-20-2022 Albumin/Globulin [Mass ratio] 0.9 {ratio} [facility] Serum or plasma alkaline maryjane sphatase measurement (enzymatic activity/volume)Ordered By: Bennie Renae on 03-20-2022 ALP [Catalytic activity/Vol] 75 U/L 32-92 [facility] Serum or plasma aspartate am inotransferase measurement (enzymatic activity/volume)Ordered By: Bennie Renae on 03-20-2022 AST [Catalytic activity/Vol] 26 U/L 10-42 [facility] Serum or plasma total biliru bin measurement (mass/volume)Ordered By: Bennie Renae on 03-20-2022 Bilirubin [Mass/Vol] 1.3 mg/dL 0.3-1.2 [facility] Comment on above: Samples from patient s who have taken Naproxen have shown spurious elevation in Total Bilirubin levels. A metabolite of Naproxen, O-desmethylnaproxen, has been shown to interfere with the Srinivas-Clifford method for measuring Total Bilirubin. Specific gravity Auto test s trip (U) [Rel density]Ordered By: Bennie Renae on 03-20-2022 Specific gravity (U) [Rel density] 1.023 1.001-1.03 0 [facility] Squamous epithelial cells de tection in urine sediment by light microscopyOrdered By: Bennie Renae on 03-20-2022 Epithelial cells.squamous LM Ql (Urine sed) 0-1 [HPF] 0-2 [facility] Urine bacteria detection by automated methodOrdered By: Bennie Renae on 03-20-2022 Bacteria Auto Ql (U) None seen None Seen [facility] Urine clarity by refractomet ry automatedOrdered By: Bennie Renae on 03-20-2022 Clarity Refractometry automated (U) Clear Clear [facility] Urine glucose measurement by automated test strip (mass/volume)Ordered By: Bennie Renae on 03-20-2022 Glucose Auto test strip (U) [Mass/Vol] 500 mg/dL Normal [facility] Urine hemoglobin detection b y automated test stripOrdered By: Bennie Renae on 03-20-2022 Hemoglobin Auto test strip Ql (U) Negative Negative [facility] Urine leukocyte esterase det ection by automated test stripOrdered By: Bennie Renae on 03-20-2022 Leukocyte esterase Auto test strip Ql (U) Negative Negative [facility] Urobilinogen Auto test strip (U) [Mass/Vol]Ordered By: Bennie Renae on 03-20-2022 Urobilinogen (U) [Mass/Vol] Normal mg/dL Normal [facility] pH Auto test strip (U)Ordere d By: Bennie Renae on 03-20-2022 pH (U) 7.5 [pH] 5.0-9.0 [facility] Office Visit (Cardiology)on 02-19-2022 Follow-up visit Diagnoses/Problems Assessed Hyperlipidemia (272.4) (E78.5) Added by Problem List Migration; 2013-03-18 Essential hypertension (401.9) (I10) Diabetes mellitus (250.00) (E11.9) Anticoagulant long-term use (V58.61) (Z79.01) History of hypertension (V12.59) (Z86.79) Added by Problem List Migration; 2013-03-18 Pacemaker (V45.01) (Z95.0) Hyperthyroidism (242.90) (E05.90) Paroxysmal atrial fibrillation (427.31) (I48.0) Overweight with body mass index (BMI) of 27 to 27.9 in adult (278.02,V85.23) (E66.3,Z68.27) Sick sinus syndrome (427.81) (I49.5) Never a smoker Orders Hyperlipidemia Renew: Atorvastatin Calcium 40 MG Oral Tablet; take 1 tablet by mouth at bedtime Overweight with body mass index (BMI) of 27 to 27.9 in adult Healthy Weight Tips; Status:Complete; Done: 19Feb2022 Some eating tips that can help you lose weight.; Status:Complete; Done: 19Feb2022 Paroxysmal atrial fibrillation Disability Placard; Status:Complete - Retrospective By Protocol Authorization; Done: 20Feb2022 SocHx: Never a smoker Tobacco Use Screening; Status:Complete; Done: 19Feb2022 Patient Instructions Please bring all medicines, vitamins, and herbal supplements with you when you come to the office. Prescriptions will not be filled unless you are compliant with your follow up appointments or have a follow up appointment scheduled as per instruction of your physician. Refills should be requested at the time of your visit. Follow up in 9 months Chief Complaint JAMEL BONDS is being seen for a 9 month follow-up of. History of Present Illness Patient returns for follow-up of problems as noted. He is doing well. 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 During the day walks down to the coffee shop several blocks away with no angina dyspnea or postural instability. Management of diabetes hypertension and hyperlipidemia is reviewed and felt to be adequate and appropriate. Treatment of his paroxysmal atrial fibrillation with current therapy and Xarelto to mitigate stroke risk was also discussed and he is happy to continue as is. He has no problems complaints or side effects related to that anticoagulation. Previously had manifestations of sick sinus syndrome but they have obviously been mitigated by pacemaker implant. Review of recent pacemaker checks demonstrates satisfactory device function and no significant paroxysms of atrial fibrillation. Because of all the above we suggest continued therapy as is. We did advocate the merits of a modest diet. Surgical History Problems History of Colonoscopy 24Mar2012 Dr Pankaj Foy History of Ear surgery History of Myringotomy - With Ventilating Tube Insertion History of Pacemaker insertion History of Prostate surgery seed implantation History of Surgery Chemotherapy IV - Portable Port History of Tonsillectomy Past Medical History Problems History of hypertension (V12.59) (Z86.79) Resolved Date: 19 Feb 2022 Added by Problem List Migration; 2013-03-18 Current Meds Medication NameInstruction Atorvastatin Calcium 40 MG Oral Tablettake 1 tablet by mouth at bedtime Digoxin 125 MCG Oral TabletTAKE 1 TABLET DAILY. Farxiga 10 MG Oral TabletTAKE 1 TABLET BY MOUTH DAILY WITH BREAKFAST Levothyroxine Sodium 25 MCG Oral TabletTAKE 1 TABLET Daily In The Morning Losartan Potassium 50 MG Oral TabletTAKE 1 TABLET BY MOUTH DAILY Lupron SOLN Metoprolol Succinate ER 25 MG Oral Tablet Extended Release 24 HourTake 1 tablet daily NovoLOG Mix 70/30 FlexPen (70-30) 100 UNIT/ML Subcutaneous Suspension Pen-injectorinject 22 units before breakfast and TEN UNITS before supper. Dose can Ofloxacin 0.3 % Ophthalmic SolutionAs directed. Omeprazole 20 MG Oral Capsule Delayed ReleaseTAKE 1 CAPSULE BY MOUTH DAILY Tamsulosin HCl - 0.4 MG Oral CapsuleTAKE 1 CAPSULE BY MOUTH ONCE DAILY Xarelto 20 MG Oral TabletTake 1 tablet by mouth daily. Allergies Medication Penicillins Allergy; Hives;; Updated By: Yudi Potter; 03/29/2021 10:34:38 PM Social History Problems Caffeine use (V49.89) (Z78.9) coffee, tea, diet soda very little Never a smoker No alcohol use No illicit drug use Review of Systems Constitutional: not feeling tired. Eyes: no eyesight problems. ENT: no hearing loss and no nosebleeds. Cardiovascular: no intermittent leg claudication and as noted in HPI. Respiratory: no chronic cough and no shortness of breath. Gastrointestinal: no change in bowel habits and no blood in stools. Genitourinary: no urinary frequency and no hematuria. Skin: no skin rashes. Neurological: no seizures and no frequent falls. Psychiatric: no depression and not suicidal. All other systems have been reviewed and are negative for complaint. Vitals Vital Signs Recorded: 19Feb2022 11:20AMRecorded: 19Feb2022 10:56AM [id number], LUE, Kyprdlt536, LUE, Sitting Lqybnyqez94, LUE, Kpocfsx66, LUE, Sitting Heart Rate60, L Radial (more content not included)... Normal Zhou Heiya Tobacco Screening.on 022 Fall risk assessment a) No falls within the last year [facility] [address] DO Work Phone: Tobacco use status [facility] b) No [facility] 250 DO Work Phone: CT Abdomen and Pelvis Ruth Moraes 01-23-2022 IMPRESSION: 1. No evidence of metastatic disease within the abdomen/pelvis. 2. No lymphadenopathy. 3. Please refer to concurrently acquired and separately reported chest CT for findings related to the thorax. Transcribe Date/Time: Jan 23 2022 11:50A Dictated by: STEPHANIE SHAW MD This examination was interpreted and the report reviewed and electronically signed by: STEPHANIE SHAW MD on Jan 23 2022 12:47PM EST Thank you for allowing us to participate in the care of your patient. Should there be any questions regarding this interpretation, please call [phone]. If you are unable to reach us at the number above, please feel free to contact [facility] at [phone]. DIVISION OF RADIOLOGY * * *Final Report* * * DATE OF EXAM: Jan 23 2022 10:18AM [facility] 0530 - CT ABD/PEL W IVCON / PROCEDURE REASON: multiple diagnoses * * * * Physician Interpretation * * * * RESULT: EXAMINATION: CT ABDOMEN AND PELVIS WITH IV CONTRAST CLINICAL HISTORY: Lower urinary tract symptoms. History of prostate cancer. Diffuse large B-cell lymphoma. TECHNIQUE: CT of the abdomen and pelvis was performed using standard technique, scanning from just above the dome of the diaphragm to the symphysis pubis. MQ: CTAP_3 Contrast: IV: 125 ml of Omnipaque 300 Oral: 450 ml of dilute Omnipaque 240 CT Radiation dose: Integrated Dose-length product (DLP) for this visit = 859 mGy*cm. CT Dose Reduction Employed: Automated exposure control (AEC) COMPARISON: CT abdomen and pelvis 01/27/2020; PET-CT 02/03/2018 RESULT: Liver: Normal liver morphology. No suspicious hepatic mass. Biliary: No bile duct dilation. The gallbladder is unremarkable. Spleen: No mass. No splenomegaly. Pancreas: No mass or duct dilation. Adrenals: The left adrenal is unremarkable. 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 Kidneys: No mass, calculus or hydronephrosis. GI tract: The bowel is normal in caliber and without evidence of wall thickening or obstruction. The appendix is normal. Lymph nodes: No abdominal or pelvic lymphadenopathy. Subcentimeter short axis gastrohepatic ligament and retroperitoneal lymph nodes are unchanged and nonspecific. Mesentery/Peritoneum: No ascites or mass. Retroperitoneum: No mass. Vasculature: - Abdominal aorta and iliac arteries: Atherosclerotic calcifications without aneurysm. - Celiac and SMA: Atherosclerotic calcifications at the origins. - Portal venous system (SMV, splenic vein, portal vein and branches): Patent. - Hepatic veins: Patent. Pelvis: No mass, ascites or fluid collection. There are multiple brachytherapy seeds within the prostate. The rectum and urinary bladder are unremarkable. Bones/Soft Tissues: Degenerative changes involve the lumbar spine. There are no destructive lytic or blastic osseous abnormalities. Lower thorax: A chest CT performed will be reported separately. Stucco Applicator (topogram) images: No additional findings. DIVISION OF RADIOLOGY Provider, [facility] - 01/23/2022 * * *Final Report* * * DATE OF EXAM: Jan 23 2022 10:18AM [facility] 0530 - CT ABD/PEL W IVCON / PROCEDURE REASON: multiple diagnoses * * * * Physician Interpretation * * * * RESULT: EXAMINATION: CT ABDOMEN AND PELVIS WITH IV CONTRAST CLINICAL HISTORY: Lower urinary tract symptoms. History of prostate cancer. Diffuse large B-cell lymphoma. TECHNIQUE: CT of the abdomen and pelvis was performed using standard technique, scanning from just above the dome of the diaphragm to the symphysis pubis. MQ: CTAP_3 Contrast: IV: 125 ml of Omnipaque 300 Oral: 450 ml of dilute Omnipaque 240 CT Radiation dose: Integrated Dose-length product (DLP) for this visit = 859 mGy*cm. CT Dose Reduction Employed: Automated exposure control (AEC) COMPARISON: CT abdomen and pelvis 01/27/2020; PET-CT 02/03/2018 RESULT: Liver: Normal liver morphology. No suspicious hepatic mass. Biliary: No bile duct dilation. The gallbladder is unremarkable. Spleen: No mass. No splenomegaly. Pancreas: No mass or duct dilation. Adrenals: The left adrenal is unremarkable. 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 Kidneys: No mass, calculus or hydronephrosis. GI tract: The bowel is normal in caliber and without evidence of wall thickening or obstruction. The appendix is normal. Lymph nodes: No abdominal or pelvic lymphadenopathy. Subcentimeter short axis gastrohepatic ligament and retroperitoneal lymph nodes are unchanged and nonspecific. Mesentery/Peritoneum: No ascites or mass. Retroperitoneum: No mass. Vasculature: - Abdominal aorta and iliac arteries: Atherosclerotic calcifications without aneurysm. - Celiac and SMA: Atherosclerotic calcifications at the origins. - Portal venous system (SMV, splenic vein, portal vein and branches): Patent. - Hepatic veins: Patent. Pelvis: No mass, ascites or fluid collection. There are multiple brachytherapy seeds within the prostate. The rectum and urinary bladder are unremarkable. Bones/Soft Tissues: Degenerative changes involve the lumbar spine. There are no destructive lytic or blastic osseous abnormalities. Lower thorax: A chest CT performed will be reported separately. Stucco Applicator (topogram) images: No additional findings. IMPRESSION IMPRESSION: 1. No evidence of metastatic disease within the abdomen/pelvis. 2. No lymphadenopathy. 3. Please refer to concurrently acquired and separately reported chest CT for findings related to the thorax. Transcribe Date/Time: Jan 23 2022 11:50A Dictated by: STEPHANIE SHAW MD This examination was interpreted and the report reviewed and electronically signed by: STEPHANIE SHAW MD on Jan 23 2022 12:47PM EST Thank you for allowing us to participate in the care of your patient. Should there be any questions regarding this interpretation, please call [phone]. If you are unable to reach us at the number above, please feel free to contact [facility] at [phone]. [facility] CT Abdomen and Pelvis W cont rast IVOrdered By: [facility] Provider on 01-23-2022 [facility] CT Chest W contrast Aleisha IMPRESSION: 1. No evidence of metastatic disease within the chest. No lymphadenopathy. 2. Multiple healed right rib fractures. 3. Please refer to concurrently acquired and separately reported abdomen CT for findings related to the upper abdomen. Transcribe Date/Time: Jan 23 2022 12:03P Dictated by: STEPHANIE SHAW MD This examination was interpreted and the report reviewed and electronically signed by: STEPHANIE SHAW MD on Jan 23 2022 12:45PM EST Thank you for allowing us to participate in the care of your patient. Should there be any questions regarding this interpretation, please call [phone]. If you are unable to reach us at the number above, please feel free to contact [facility] at [phone]. DIVISION OF RADIOLOGY * * *Final Report* * * DATE OF EXAM: Jan 23 2022 10:18AM [facility] 0539 - CT CHEST W IVCON / PROCEDURE REASON: multiple diagnoses * * * * Physician Interpretation * * * * RESULT: EXAMINATION: CHEST CT WITH CONTRAST CLINICAL HISTORY: Diffuse large B-cell lymphoma. History of prostate cancer. Technique: Spiral CT acquisition of the chest from the thoracic inlet to the upper abdomen following IV contrast. MQ: CTCW_6 Contrast: 125 mL Omnipaque [address] Radiation dose: Integrated Dose-length product (DLP) for this visit = 859 mGy*cm CT Dose Reduction Employed: Automated exposure control (AEC) Comparison: CT chest, abdomen and pelvis 01/27/2020. PET/CT 02/03/2018 RESULT: Limitations: None. 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 The tip of a right chest wall port extends to the upper SVC. Lung parenchyma and airways: There is no airspace consolidation. There is mild bibasilar juxtapleural subsegmental atelectasis. The central tracheobronchial tree is patent. No enlarging suspicious pulmonary nodule is identified. Pleural space: No pleural effusion. No pleural thickening. Lower neck, lymph nodes, and mediastinum: The imaged thyroid is unremarkable. There is no supraclavicular, axillary, mediastinal or hilar lymphadenopathy. Heart, pericardium, and thoracic vessels: The thoracic aorta and main pulmonary artery are normal in caliber. The cardiac chambers are normal in size. Coronary artery atherosclerotic calcifications are noted, although the study is not optimized for coronary assessment. No pericardial effusion or thickening. Bones and soft tissues: Degenerative changes involve the thoracic spine. There are no destructive lytic or blastic osseous abnormalities. There are unchanged healed right posterior eighth-ninth rib fractures. There is a healed right anterolateral sixth rib fracture. A 0.9 cm hypodense focus within the T12 vertebral body likely represents an intraosseous hemangioma. Upper abdomen: Please refer to concurrently acquired and separately reported abdomen CT for findings related to the upper abdomen. Stucco Applicator (topogram) images: No additional findings. DIVISION OF RADIOLOGY Provider, [facility] Bonner 01/23/2022 * * *Final Report* * * DATE OF EXAM: Jan 23 2022 10:18AM [facility] 0539 - CT CHEST W IVCON / PROCEDURE REASON: multiple diagnoses * * * * Physician Interpretation * * * * RESULT: EXAMINATION: CHEST CT WITH CONTRAST CLINICAL HISTORY: Diffuse large B-cell lymphoma. History of prostate cancer. Technique: Spiral CT acquisition of the chest from the thoracic inlet to the upper abdomen following IV contrast. MQ: CTCW_6 Contrast: 125 mL Omnipaque [address] Radiation dose: Integrated Dose-length product (DLP) for this visit = 859 mGy*cm CT Dose Reduction Employed: Automated exposure control (AEC) Comparison: CT chest, abdomen and pelvis 01/27/2020. PET/CT 02/03/2018 RESULT: Limitations: None. 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 The tip of a right chest wall port extends to the upper SVC. Lung parenchyma and airways: There is no airspace consolidation. There is mild bibasilar juxtapleural subsegmental atelectasis. The central tracheobronchial tree is patent. No enlarging suspicious pulmonary nodule is identified. Pleural space: No pleural effusion. No pleural thickening. Lower neck, lymph nodes, and mediastinum: The imaged thyroid is unremarkable. There is no supraclavicular, axillary, mediastinal or hilar lymphadenopathy. Heart, pericardium, and thoracic vessels: The thoracic aorta and main pulmonary artery are normal in caliber. The cardiac chambers are normal in size. Coronary artery atherosclerotic calcifications are noted, although the study is not optimized for coronary assessment. No pericardial effusion or thickening. Bones and soft tissues: Degenerative changes involve the thoracic spine. There are no destructive lytic or blastic osseous abnormalities. There are unchanged healed right posterior eighth-ninth rib fractures. There is a healed right anterolateral sixth rib fracture. A 0.9 cm hypodense focus within the T12 vertebral body likely represents an intraosseous hemangioma. Upper abdomen: Please refer to concurrently acquired and separately reported abdomen CT for findings related to the upper abdomen. Stucco Applicator (topogram) images: No additional findings. IMPRESSION IMPRESSION: 1. No evidence of metastatic disease within the chest. No lymphadenopathy. 2. Multiple healed right rib fractures. 3. Please refer to concurrently acquired and separately reported abdomen CT for findings related to the upper abdomen. Transcribe Date/Time: Jan 23 2022 12:03P Dictated by: STEPHANIE SHAW MD This examination was interpreted and the report reviewed and electronically signed by: STEPHANIE SHAW MD on Jan 23 2022 12:45PM EST Thank you for allowing us to participate in the care of your patient. Should there be any questions regarding this interpretation, please call [phone]. If you are unable to reach us at the number above, please feel free to contact [facility]iology at [phone]. [facility] No Panel Informationon 01-23 Radiology Study observation (narrative) [facility] PSA/PROSTSPECAG DIAGon 01-12 Prostate specific Ag [Mass/Vol] 63.27 ng/mL High <2.60 ng/mL [facility] CBC W Auto Differential pane l (Bld)on 01-11-2022 Basophils (Bld) [#/Vol] 0.06 10*3/uL <0.11 k/uL [facility] Basophils/100 WBC (Bld) 0.8 % [facility] Differential cell count method Nom (Bld) Auto [facility] Eosinophils (Bld) [#/Vol] 0.40 10*3/uL <0.46 k/uL [facility] Eosinophils/100 WBC (Bld) 5.1 % [facility] Erythrocyte distribution width (RBC) [Ratio] 13.2 % 11.5 - 15.0 % [facility] Hematocrit (Bld) [Volume fraction] 39.9 % 39.0 - 51.0 % [facility] Hemoglobin (Bld) [Mass/Vol] 13.4 g/dL 13.0 - 17.0 g/dL [facility] Immature granulocytes (Bld) [#/Vol] 0.03 10*3/uL <0.10 k/uL [facility] Immature granulocytes/100 WBC (Bld) 0.4 % [facility] Lymphocytes (Bld) [#/Vol] 1.81 10*3/uL 1.00 - 4.00 k/uL [facility] Lymphocytes/100 WBC (Bld) 23.3 % [facility] MCH (RBC) [Entitic mass] 31.1 pg 26.0 - 34.0 pg [facility] MCHC (RBC) [Mass/Vol] 33.6 g/dL 30.5 - 36.0 g/dL [facility] MCV (RBC) [Entitic vol] 92.6 fL 80.0 - 100.0 fL [facility] Monocytes (Bld) [#/Vol] 0.97 10*3/uL High <0.87 k/uL [facility] Monocytes/100 WBC (Bld) 12.5 % [facility] Neutrophils (Bld[facility] [#/Vol] 4.51 10*3/uL 1.45 - 7.50 k/uL [facility] Neutrophils/100 WBC (Bld) 57.9 % [facility] Nucleated RBC (Bld) [#/Vol] <0.01 k/uL [facility] Nucleated RBC/100 WBC (Bld) [Ratio] 0.0 /100 WBC [facility] Platelet mean volume (Bld) [Entitic vol] 9.7 fL 9.0 - 12.7 fL [facility] Platelets (Bld) [#/Vol] 222 10*3/uL 150 - 400 k/uL [facility] RBC (Bld) [#/Vol] 4.31 10*6/uL 4.20 - 6.00 m/uL [facility] WBC (Bld) [#/Vol] 7.78 10*3/uL 3.70 - 11.00 k/uL [facility] Comprehensive metabolic 2000 panelon 01-11-2022 Albumin [Mass/Vol] 4.1 g/dL 3.9 - 4.9 g/dL [facility] ALP [Catalytic activity/Vol] 88 U/L 38 - 113 U/L [facility] ALT [Catalytic activity/Vol] 16 U/L 10 - 54 U/L [facility] Anion gap [Moles/Vol] 10 mmol/L 9 - 18 mmol/L [facility] AST [Catalytic activity/Vol] 18 U/L 14 - 40 U/L [facility] Bilirubin [Mass/Vol] 0.5 mg/dL 0.2 - 1 .3 mg/dL [facility] Calcium [Mass/Vol] 9.2 mg/dL 8.5 - 10. 2 mg/dL [facility] Chloride [Moles/Vol] 102 mmol/L 97 - 10 5 mmol/L [facility] CO2 [Moles/Vol] 29 mmol/L 22 - 30 mmol/L [facility] Creatinine [Mass/Vol] 1.37 mg/dL High 0.73 - 1.22 mg/dL [facility] Estimated Glomerular Filtration Rate 51 mL/min/1.73m Low >=60 mL/min/1.7 3m [facility] Glucose [Mass/Vol] 168 mg/dL High 74 - 99 mg/dL [facility] Potassium [Moles/Vol] 4.3 mmol/L 3.7 - 5.1 mmol/L [facility] Protein [Mass/Vol] 6.9 g/dL 6.3 - 8.0 g/dL [facility] Sodium [Moles/Vol] 141 mmol/L 136 - 144 mmol/L [facility] Urea nitrogen [Mass/Vol] 27 mg/dL High 9 - 24 mg/dL [facility] Laboratory - Chemistry and C hemistry - challengeon 01-11-2022 LDH [Catalytic activity/Vol] 185 U/L 135 - 225 U/L [facility] Urinalysis complete panel (U )on 01-11-2022 Bilirubin Ql (U) Negative Negative [facility] Clarity (Unsp spec) Clear Clear [facility] Color (U) Yellow Yellow [facility] Epithelial cells LM.HPF (Urine sed) [#/Area] Few Abnormal None Seen /HPF [facility] Glucose Test strip (U) [Mass/Vol] 3+ Abnormal Negative [facility] Hemoglobin Ql (U) Negative Negative [facility] Ketones Ql (U) Negative Negative [facility] Leukocyte esterase Test strip Ql (U) Negative Negative [facility] Nitrite Ql (U) Negative Negative [facility] pH (U) 6.0 [pH] 5.0 - 8.0 [facility] Protein (U) [Mass/Vol] 2+ Abnormal Negative [facility] RBC LM.HPF (Urine sed) [#/Area] 0-3 /HPF 0-3 /HPF [facility] Specific gravity (U) [Rel density] 1.024 1.005 - 1.030 [facility] Urobilinogen Ql (U) Negative Negative [facility] WBC LM.HPF (Urine sed) [#/Area] 6-10 /HPF Abnormal 0-5 /HPF [facility] HEMOGLOBIN A1C (POC)on 11-09 HbA1c (Bld) [Mass fraction] 7.9 % Abnormal 4.2 - 5.6 % [facility] Activated partial thrombopla stin time (aPTT) in platelet poor plasma by coagulation aOrdered By: Atif Ta on 08-11-2021 aPTT Coag (PPP) [Time] 47.3 s 25.1-36.5 [facility] Albumin [Mass/volume] in Ser um or PlasmaOrdered By: Atif Ta on 08-11-2021 Albumin [Mass/Vol] 3.5 g/dL 3.2-5.5 [facility] Basophils Auto (Bld) [#/Vol] Ordered By: Atif Ta on 08-11-2021 Basophils (Bld) [#/Vol] 0.1 10*3/uL 0.0-0.2 [facility] Basophils/100 WBC Auto (Bld) Ordered By: Atif Ta on 08-11-2021 Basophils/100 WBC (Bld) 1.3 % [facility] Blood hemoglobin measurement (mass/volume)Ordered By: Atif Ta on 08-11-2021 Hemoglobin (Bld) [Mass/Vol] 13.0 g/dL 13.0-17.0 [facility] Blood leukocytes automated c ount (number/volume)Ordered By: Atif Ta on 08-11-2021 WBC (Bld) [#/Vol] 8.0 10*3/uL 4.5-11.0 [facility] Creatinine and Glomerular fi ltration rate.predicted panel (S/P/Bld)Ordered By: Atif Ta on 08-11-2021 Creatinine [Mass/Vol] 1.75 mg/dL 0.64-1.27 [facility] Direct bilirubin measurement Ordered By: Atif Ta on 08-11-2021 Bilirubin.direct [Mass/Vol] 0.1 mg/dL 0.0-0.4 [facility] Eosinophils Auto (Bld) [#/Vo l]Ordered By: Atif Ta on 08-11-2021 Eosinophils (Bld) [#/Vol] 0.5 10*3/uL 0.0-0.45 [facility] Eosinophils/100 WBC Auto (Bl d)Ordered By: Atif Ta on 08-11-2021 Eosinophils/100 WBC (Bld) 5.8 % [facility] Erythrocyte distribution wid th Auto (RBC) [Ratio]Ordered By: Atif Ta on 08-11-2021 Erythrocyte distribution width (RBC) [Ratio] 13.9 % 12.0-14.8 [facility] Estimated glomerular filtrat ion rate (GFR) non- AmericanOrdered By: Atif Ta on 08-11-2021 GFR/1.73 sq M.predicted among non-blacks MDRD (S/P/Bld) [Vol rate/Area] 37 mL/Min [facility] Globulin Calc (S) [Mass/Vol] Ordered By: Atif Ta on 08-11-2021 Globulin (S) [Mass/Vol] 3.0 g/dL [facility] Glucose Glucometer (BldC) [M ass/Vol]Ordered By: Atif Ta on 08-11-2021 Glucose [Mass/Vol] 248 mg/dL [facility] [facility] Comment on above: Random Glucose Refer ence Range is dependent on time and content of last meal. Glucose of more than 200 mg/dL in a nonstressed, ambulatory subject supports the diagnosis of Diabetes Mellitus. Hematocrit Auto (Bld) [Volum e fraction]Ordered By: Atif Ta on 08-11-2021 Hematocrit (Bld) [Volume fraction] 37.8 % 38.8-50.0 [facility] - Chemistry and C hemistry - challengeOrdered By: Atif Ta on 08-11-2021 Natriuretic peptide B (Bld) [Mass/Vol] 86.0 pg/mL 5-100 [facility] - CoagulationOrde red By: Atif Ta on 08-11-2021 PT Coag (PPP) [Time] 22.5 s 9.0-12.9 [facility] - Hematology and Cell countsOrdered By: Atif Ta on 08-11-2021 Nucleated RBC/100 WBC (Bld) [Ratio] 0.0 % 0-0.5 [facility] Lymphocytes Auto (Bld) [#/Vo l]Ordered By: Atif Ta on 08-11-2021 Lymphocytes (Bld) [#/Vol] 1.7 10*3/uL 1.00-4.8 [facility] Lymphocytes/100 WBC Auto (Bl d)Ordered By: Atif Ta on 08-11-2021 Lymphocytes/100 WBC (Bld) 21.1 % [facility] MCH Auto (RBC) [Entitic mass ]Ordered By: Atif Ta on 08-11-2021 MCH (RBC) [Entitic mass] 32.2 pg 27.5-35.2 [facility] MCHC Auto (RBC) [Mass/Vol]Or dered By: Atif Ta on 08-11-2021 MCHC (RBC) [Mass/Vol] 34.4 g/dL 32.5-35.6 [facility] MCV Auto (RBC) [Entitic vol] Ordered By: Atif Ta on 08-11-2021 MCV (RBC) [Entitic vol] 93.6 fL 83.5-[address] [facility] Monocytes Auto (Bld) [#/Vol] Ordered By: Atif Ta on 08-11-2021 Monocytes (Bld) [#/Vol] 0.8 10*3/uL 0.0-0.8 [facility] Monocytes/100 WBC Auto (Bld) Ordered By: Atif Ta on 08-11-2021 Monocytes/100 WBC (Bld) 10.3 % [facility] Neutrophils Auto (Bld) [#/Vo l]Ordered By: Atif Ta on 08-11-2021 Neutrophils (Bld) [#/Vol] 4.9 10*3/uL 1.8-7.7 [facility] Neutrophils/100 WBC Auto (Bl d)Ordered By: Atif Ta on 08-11-2021 Neutrophils/100 WBC (Bld) 61.5 % [facility] No Panel InformationOrdered By: Atif Ta on 08-11-2021 Estimated GFR () 45 mL/Min [facility] Comment on above: GFR estimated refere nce range: According to KDOQI guidelines, <60 ml/min/1.73m2 is sufficient to diagnose a patient with chronic kidney disease. Pharmacy Creatinine Clearance (Chem 30.40 [facility] Platelet mean volume Auto (B ld) [Entitic vol]Ordered By: Atif Ta on 08-11-2021 Platelet mean volume (Bld) [Entitic vol] 8.0 fL 6.6-10.1 [facility] Platelet poor plasma interna tional normalized ratio (INR) by coagulation assay (relatOrdered By: Atif Ta on 08-11-2021 INR Coag (PPP) [Relative time] 2.0 {INR} [facility] Comment on above: INR Therapeutic Rang e A) Pre- and Peroperative OAT started two weeks before surgery. NOT HIP SURGERY: 1.5 - 2.5 HIP SURGERY: 2 - 3 B) Primary and secondary prevention of venous THROMBOSIS: 2 - 3 C) Active venous thrombosis, pulmonary embolism and prevention of recurrent venous thrombosis: 2 - 3 D) Prevention of arterial thromboembolism including patients with mechanical heart valves: 3 - 4.5 Platelets Auto (Bld) [#/Vol] Ordered By: Atif Ta on 08-11-2021 Platelets (Bld) [#/Vol] 226 10*3/uL 150-450 [facility] Protein [Mass/volume] in Ser um or PlasmaOrdered By: Atif Ta on 08-11-2021 Protein [Mass/Vol] 6.5 g/dL 6.1-7.9 [facility] RBC Auto (Bld) [#/Vol]Ordere d By: Atif Ta on 08-11-2021 RBC (Bld) [#/Vol] 4.04 10*6/uL 3.90-5.60 [facility] Serum or plasma alanine sung otransferase measurement without P-5'-P (enzymatic activiOrdered By: Atif Ta on 08-11-2021 ALT No additional P-5'-P [Catalytic activity/Vol] 26 U/L 10-60 [facility] Serum or plasma albumin/glob ulin mass ratioOrdered By: Atif Ta on 08-11-2021 Albumin/Globulin [Mass ratio] 1.2 {ratio} [facility] Serum or plasma alkaline maryjane sphatase measurement (enzymatic activity/volume)Ordered By: Atif Ta on 08-11-2021 ALP [Catalytic activity/Vol] 64 U/L 32-92 [facility] Serum or plasma aspartate am inotransferase measurement (enzymatic activity/volume)Ordered By: Atif Ta on 08-11-2021 AST [Catalytic activity/Vol] 24 U/L 10-42 [facility] Serum or plasma calcium radha urement (mass/volume)Ordered By: Atif Ta on 08-11-2021 Calcium [Mass/Vol] 9.1 mg/dL 8.2-10.2 [facility] Serum or plasma chloride milagros surement (moles/volume)Ordered By: Atif Ta on 08-11-2021 Chloride [Moles/Vol] 98 mmol/L 95-114 [facility] Serum or plasma glucose radha urement (mass/volume)Ordered By: Atif Ta on 08-11-2021 Glucose [Mass/Vol] 324 mg/dL 70-100 [facility] Comment on above: ADA recommended refe rence range Random Glucose Reference Range is dependent on time and content of last meal. Glucose of more than 200 mg/dL in a nonstressed, ambulatory subject supports the diagnosis of Diabetes Mellitus. Serum or plasma non-glucuron idated bilirubin measurement (mass/volume)Ordered By: Atif Ta on 08-11-2021 Bilirubin.indirect [Mass/Vol] 0.7 mg/dL [facility] Serum or plasma potassium me asurement (moles/volume)Ordered By: Atif Ta on 08-11-2021 Potassium [Moles/Vol] 4.6 mmol/L 3.5-5.1 [facility] Serum or plasma sodium measu rement (moles/volume)Ordered By: Atif Ta on 08-11-2021 Sodium [Moles/Vol] 136 mmol/L 136-146 [facility] Serum or plasma total biliru bin measurement (mass/volume)Ordered By: Atif Ta on 08-11-2021 Bilirubin [Mass/Vol] 0.8 mg/dL 0.3-1.2 [facility] Serum or plasma total carbon dioxide measurement (moles/volume)Ordered By: Atif Ta on 08-11-2021 CO2 [Moles/Vol] 25.8 mmol/L 22.0-30.0 [facility] Serum or plasma urea nitroge n measurement (mass/volume)Ordered By: Atif Ta on 08-11-2021 Urea nitrogen [Mass/Vol] 32 mg/dL 12-14 [facility] Troponin I.cardiac [Mass/vol ume] in Serum or Plasma by High sensitivity methodOrdered By: Atif Ta on 08-11-2021 Troponin I.cardiac High sensitivity method [Mass/Vol] 21 pg/mL 0-20 [facility] PHQ-2 VITALSon 05-16-2021 Adult depression screening assessment No [facility] [employer] [address] DO Work Phone: Fall risk assessment a) No falls within the last year [facility] DO Work Phone: Tobacco use status [facility] b) No M [facility] [employer] DO Work Phone: Coding Summary.on 04-05-2019 Coding Summary. 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 However, the narrative phrase printed from the coding software may appear abbreviated, or result in slightly different terminology. Coded By: Mei Jewell Date Saved: 04/05/2019 02:14 pm Normal [facility] Consultation Noteon 04-05-19 20 Consultation Note HOSPITAL REGULATIONS : ALL Positive Important Negative Findings Shall Be Recorded. Date of 04/01/2019 Consultation: Attending Yariel Villanueva D.O. Physician: Consulting Kaden Fields M.D. Physician: CHIEF COMPLAINT: Bilateral leg pain. HISTORY OF PRESENT ILLNESS: This is an 83-year-old male here for a chief complaint of bilateral leg pain. He rates his symptoms currently as a 2/10. At his last visit, her underwent a bilateral L5 transforaminal epidural steroid injection. He reports since that time, his symptoms have been improved by 75%. His ability to stand, walk and function in general has improved as well. At this point, he is really only having any real pain in the top of the left foot. He is very happy with how things have gone. He denies new neurologic symptoms or issues with bladder or bowel control. His past medical, social, family history along with medications and allergies is available and was reviewed. PHYSICAL EXAMINATION: General: He is a pleasant white male. Vital signs including blood pressure, heart rate and respirations are stable. Head: Head is normocephalic and external ears are normal. Neck: Neck is supple with no lesions. Cardiovascular: No signs of poor perfusion, no peripheral edema. Respiratory: Breathing is unlabored. There is no wheezing present. Abdomen: Abdomen is soft, nondistended. Back: There is no lumbar tenderness. Musculoskeletal: Strength is 5/5. Muscle tone is normal. Neurologic: Sensation is intact. His reflexes are diminished but symmetric. Psychiatric: Affect is appropriate. He is alert and oriented. ASSESSMENT: This is an 83-year-old male here for a chief complaint of low back and bilateral leg pain. His signs and symptoms are due to lumbar stenosis with neurogenic claudication, lumbar disc disease with radiculopathy and lumbosacral spondylosis. He has an excellent response to the transforaminal epidural. PLAN: I addressed options with him and since he is doing well at this time, we will hold off on further interventional therapies but we will repeat a bilateral L5 transforaminal epidural steroid injection in the future if or when needed. I advised him to continue his home exercises in the interim and I will see him for followup on a p.r.n. basis. Kaden Fields M.D. gls Dictated: 04/01/2019 #[id number] Typed: 04/05/2019 #[id number] cc: Fredy Constantino M.D. [facility] Comment on above: Result Comment: Elec tronically Signed By: Donnie MARTINEZ, Kaden\.br\Date and Time Signed: 04/05/19 17:19 EST Coding Summary.on 03-11-2019 Coding Summary. 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 However, the narrative phrase printed from the coding software may appear abbreviated, or result in slightly different terminology. Coded By: Heike Mahajan Date Saved: 03/11/2019 01:47 pm Normal [facility] Main OR Intraoperative Recor don 03-10-2019 Main OR Intraoperative Record IntraOp Document Type FTPM Summary Primary Physician: Kaden Fields MD Finalized Date/Time: 03/10/19 14:11:23 Pt. Name: JALYNJAMEL/Sex: 1935 Male Med Rec #: [id number] Physician: Kaden Fields MD Financial #: [id number] Pt. Type: P Room/Bed: / Admit/Disch: 03/10/19 12:36:59 - Institution: Case Times FTPM Entry 1 Patient Times In Room 03/10/19 14:01:00 Out Room 03/10/19 14:12:00 Procedure Times Start 03/10/19 14:04:00 Stop 03/10/19 14:10:00 Anesthesia Times Last Modified By: May Rain RN 03/10/19 14:11:05 Case Attendance FTPM Entry 1 Entry 2 Entry 3 Case Attendee Kaden Fields MD, RN, Lily Harrison RN Role Performed Surgeon - Primary Director Account Management - Primary Scrub - Primary Time In 03/10/19 14:01:00 03/10/19 14:01:00 03/10/19 14:01:00 Time Out 03/10/19 14:12:00 03/10/19 14:12:00 03/10/19 14:12:00 Procedure TRANSFORAMINAL EPIDURAL TRANSFORAMINAL EPIDURAL TRANSFORAMINAL EPIDURAL STEROID STEROID STEROID INJECTIO(Bilateral) INJECTIO(Bilateral) INJECTIO(Bilateral) Comments Last Modified By: May Rain RN, RN, Sonja C Ward RN, Sonja C 03/10/19 14:11:06 03/10/19 14:11:06 03/10/19 14:11:06 Entry 4 Case Attendee Karen Villaseñor Performed Window Installer Time In 03/10/19 14:01:00 Time Out 03/10/19 14:12:00 Procedure TRANSFORAMINAL EPIDURAL STEROID INJECTIO(Bilateral) Comments Last Modified By: May Rain RN 03/10/19 14:11:06 Perioperative Protocols FTPM Pre-Care Text: Implements protective measures prior to operative or invasive procedure, confirms identity before the operative or invasive procedure, verifies operative procedure, surgical site, and laterality Entry 1 Procedure(s) TRANSFORAMINAL EPIDURAL Patient Identity Birthday, ID Band STEROID Verified (select at Check, Patient INJECTIO(Bilateral) least 2): Participation Consents / H and P HandP, Surgery/Procedure Operative Site Present Verified Consent Marking Verified Surgical Site Yes Laterality Verified Yes Verified Procedure Verified Yes Correct Patient Yes Position Verified Availability Equipment, Medication, Prep Dry Yes Verified (If X-ray Applicable) PreOp Antibiotic No Time Out May Rain RN, Smith Given Participants Lily ROUSE Zumbar MD, Zachary Time Out Complete 03/10/19 14:02:00 Outcomes Met? Yes Last Modified By: May Rain RN 03/10/19 14:11:20 Post-Care Text: The patient is free from signs and symptoms of injury caused by extraneous objects Allergy Information FTPM Pre-Care Text: Verifies allergies Entry 1 Allergies Reviewed? Yes Allergies Reviewed Self/Patient With Outcomes Met? Yes Last Modified By: May Rain RN 03/10/19 13:16:35 Post-Care Text: The patient received appropriate medication(s) safely administered during the perioperative period Surgical Procedures FTPM Entry 1 Procedure Description Procedure TRANSFORAMINAL EPIDURAL Modifiers Bilateral STEROID INJECTION Surgeon Description L5 TFESI Primary Procedure Yes Primary Surgeon Kaden Fields MD Start 03/10/19 14:01:00 Stop 03/10/19 14:04:00 Anesthesia Type None Surgical Service Pain Management Wound Class 1 - Clean Last Modified By: May Rain RN 03/10/19 14:02:30 General Case Data FTPM Pre-Care Text: Classifies surgical wound, implements aseptic technique, initiates traffic control Entry 1 Case Information OR Pain Proc Room Case Level Level 2 Wound Class 1 - Clean Specialty Pain Management Preop Diagnosis M48.06 Postop Same As Preop Yes Postop Diagnosis M48.06 Outcomes Met? Yes Last Modified By: May Rain RN 03/10/19 13:16:47 Post-Care Text: The patient is free from signs and symptoms of infection Skin Assessment (Pre Procedure) FTPM Pre-Care Text: Implements protective measures to prevent skin/ tissue injury due to thermal or mechanical sources Evaluates for signs and symptoms of physical injury to skin and tissue Entry 1 Skin Integrity Intact, [place], Warm, and Skin Abnormality No Dry Outcomes Met? Yes Last Modified By: May Rain RN 03/10/19 13:16:56 Post-Care Text: The patient is free from signs and symptoms of injury caused by extraneous objects Patient Positioning FTPM Pre-Care Text: Identifies physical alterations that require additional precautions for procedure-specific positioning, verifies presence of prosthetics or corrective devices, positions the patient, evaluates the patient for signs and symptoms of injury as a result of positioning Entry 1 Procedure TRANSFORAMINAL EPIDURAL Body Position Prone STEROID INJECTIO(Bilateral) Feet Uncrossed? Yes Left Arm Position Resting at Side Right Arm Position Resting at Side Left Leg Position Extended Right Leg Position Extended Positioning Device Pillow Under Head Large, Safety Strap, Pillow Large Under Knees Press Points Checked Yes By May Rain RN Outcomes Met? Yes Last Modified By: May Rain RN 03/10/19 13:17:02 Post-Care Text: The patient is free from signs and symptoms of injury related to positioning Transport To OR FTPM Pre-Care Text: Transports according to individual needs. Evaluates for signs and symptoms of skin and tissue injury as a result of transfer or transport Entry 1 Via Cart By May Rain RN Safety Precautions Safety Strap, Side Outcomes Met? Yes Rails Up Last Modified By: May Rain RN 03/10/19 13:17:07 Post-Care Text: The patient is free from signs and symptoms of injury related to transfer/transport Skin Prep FTPM Pre-Care Text: Performs skin preparations Entry 1 Procedure TRANSFORAMINAL EPIDURAL Prep Area BLOCK INJECTION SITE STEROID INJECTIO(Bilateral) Prep Agents Chloraprep/Dry Prior to Draping Hair Removal Methods Not Indicated By Lily Pittman RN Outcomes Met? Yes Last Modified By: May Rain RN 03/10/19 13:17:16 Post-Care Text: The patient is free from signs and symptoms of infection Departure From OR FTPM Pre-Care Text: Transports according to individual needs. Evaluates for signs and symptoms of skin and tissue injury as a result of transfer or transport. Entry 1 Via Cart Safety Precautions Safety Strap, Side Rails Up PostOp Destination PACU Transported By May Rain RN Patient Status Stable Report Given Rachel Gallego RN To/Hand Off Communication Skin. Condition Dry, Intact Airway Maintenance Oxygen in Use? No Outcomes Met? Yes Last Modified By: May Rain RN 03/10/19 13:17:25 Post-Care Text: The patient is free from signs and symptoms of injury related to transfer/transport Dressing/Packing FTPM Pre-Care Text: Administers care to wound sites Entry 1 Type Dressing Site and Details OPSITE AND 2X2 TO INJECTION SITE Outcomes Met? Yes Last Modified By: May Rain RN 03/10/19 13:17:30 Post-Care Text: The patient is free from signs and symptoms of infection Medication Administration FTPM Pre-Care Text: Verifies allergies, administers prescribed medications and solutions, administers prescribed antibiotic therapy and immunizing agents as ordered, evaluates response to medications Administers prescribed medications and solutions Entry 1 Route of Admin Block Expiration Date Yes Verified Ordered By Kaden Fields MD Transcribed/To May Rain RN Field By Administered By Kaden Fields MD Outcomes Met? Yes Last Modified By: May Rain RN 03/10/19 13:17:39 Post-Care Text: The patient received appropriate medication(s) safely administered during the perioperative period X-Rays and Images FTPM Pre-Care Text: Assess history of previous radiation exposure and implements protective measures Entry 1 X-Ray Type C-Arm Contrast Used? Yes Outcomes Met? Yes Last Modified By: May Rain RN 03/10/19 13:17:47 Post-Care Text: The patient is free from signs and symptoms of radiation injury Case Comments Finalized By: May Rain RN Document Signatures Signed By: May Rain RN 03/10/19 14:11 [facility] Main OR Preoperative Recordo n 03-10-2019 Main OR Preoperative Record Holding Area Document Type FTPM Summary Primary Physician: Kaden Fields MD Finalized Date/Time: 03/10/19 13:24:10 Pt. Name: JAMEL BONDS Parker/Sex: 1935 Male Med Rec #: [id number] Physician: Kaden Fields MD Financial #: [id number] Pt. Type: P Room/Bed: / Admit/Disch: 03/10/19 12:36:59 - Institution: Case Times Holding FTPM Pre-Care Text: Verifies consent for planned procedure, identifies individual values and wishes concerning care, includes family members in perioperative teaching Secures patient's records' belongings, and valuables, maintains patient's dignity and privacy, and maintains patient confidentiality Entry 1 In Holding 03/10/19 13:17:00 Outcomes Met? Yes Last Modified By: Carolyn Urrutia RN 03/10/19 13:21:14 Post-Care Text: The patient participates in decisions affecting his or her perioperative plan of care The patient's right to privacy is maintained Surgery Checklist FTPM Entry 1 Patient Birthday, ID Band Procedure History and Physical, Identification: Check, Patient Verification: Surgical Consent, With Participation Family, With Patient NPO after Midnight: No Personal Items: Cataract Lens Implant, Jewelry, Pacemaker Personal Items Necklace, cataract lens Complaints of Pain: Yes Comment: both eyes, pacemaker; Family has glasses and hat and wallet Pain Comment: lower back pain 0/10 Operative Site Yes Marking: Marked By: Dr. Fields Availability Equipment, X-Ray Verified: Does Patient Smoke No Patient states Yes Comment - Adult Milagros postop adult Supervision supervision available Case Cancelled in No Holding Area see comments below for reason Last Modified By: Carolyn Urrutia RN 03/10/19 13:23:58 Finalized By: Carolyn Urrutia RN Document Signatures Signed By: Carolyn Urrutia RN 03/10/19 13:24 Carolyn Urrutia RN 03/10/19 13:24 [facility] Operative Reporton 9 Operative Report Date of Surgery: 03/10/2019 SURGEON: Kaden Fields M.D. DIAGNOSIS: Lumbar stenosis with neurogenic claudication OPERATION: Bilateral lumbar transforaminal epidural steroid injection/selective nerve root block under fluoroscopic guidance at the L5 nerve roots SOLUTION USED: 5 cc of 0.5% lidocaine with 40 mg of Kenalog, 2.5 cc per site; live contrast was also used ANESTHESIA: Local COMPLICATIONS: None PROCEDURE: After informed consent was obtained, the patient was brought to the Operating Room and placed in the prone position. The area in question was prepped and draped in a sterile fashion. An ipsilateral oblique fluoroscopic view of the lumbar spine was obtained and after a local anesthetic was administered into the skin, a 22 gauge Chiba needle was inserted into the skin and advanced to the 6 o'clock position beneath the left L5 pedicle under intermittent fluoroscopic guidance. Proper needle position was confirmed via AP and lateral fluoroscopy. Contrast was administered under live fluoroscopy which demonstrated appropriate epidural and nerve root uptake and the absence of any intravascular or intrathecal spread. The local anesthetic steroid solution was injected incrementally. The needle was removed. Bleeding was nil. The procedure was repeated in the same manner at the same level on the opposite side. The patient tolerated the procedure well and was transferred to the Recovery Room in good condition. Kaden Fields M.D. gls Dictated: 03/10/2019 #[id number] Typed: 03/10/2019 #[id number] cc: Kaden Fields M.D. [facility] Comment on above: Result Comment: Elec tronically Signed By: Kaden Fields MD\.br\Date and Time Signed: 03/10/19 16:13 EST Coding Summary.on 01-14-2019 Coding Summary. CODING DATE: 019 FINAL [facility] STATUS: Home (Routine DC) PAYOR: [facility] [place] ADMIT DX: REASON FOR VISIT DX: M79.604 Pain in right leg M79.605 Pain in left leg FINAL DX: PRINCIPAL: M79.604 Pain in right leg SECONDARY: M79.605 Pain in left leg I48.91 Unspecified atrial fibrillation Z79.01 clother in (current) use of anticoagulants Z95.0 Presence of cardiac pacemaker Z79.891 clother in (current) use of opiate analgesic PROCEDURES DOCTOR NAME DATE NOTE: The code number assigned matches the documented diagnosis and / or procedure in the patient's chart. However, the narrative phrase printed from the coding software may appear abbreviated, or result in slightly different terminology. Coded By: Hannah Franco CphT Date Saved: 01/14/2019 07:50 am Normal [facility] Consultation Noteon 01-13- 19 Consultation Note HOSPITAL REGULATIONS : ALL Positive Important Negative Findings Shall Be Recorded. Date of 01/07/2019 Consultation: Attending Yariel Villanueva D.O. Physician: Consulting Kaden Fields M.D. Physician: CHIEF COMPLAINT: Bilateral leg pain. HISTORY OF PRESENT ILLNESS: This is an 83 year old male here for a chief complaint of bilateral leg pain. He rates his symptoms as a 6/10. He reports the pain is constant although it is worse with activity. He reports that the most difficult thing for him is standing and walking for long periods of time. He has had these issues for a long time but it has getting progressively worse, particularly over the past couple of years. He has tried therapy, anti-inflammatories and tramadol, which have been only marginally helpful. He reports the pain will start in the hips radiate down both legs to the feet. He has numbness in the left leg and not in the right leg, but the pain in the right leg is considerably worse. He denies loss of bladder or bowel control. He is on chronic Xarelto for atrial fibrillation as well as he also has a pacemaker. His past medical, psychosocial and family history, along with medications and allergies are available and were reviewed. Review of systems was done on [employer] systems. PHYSICAL EXAMINATION: General: He is a pleasant white male. Vital signs including blood pressure, heart rate and respirations are stable. Head: Head is normocephalic and external ears are normal. Neck: Neck is supple with no lesions. Cardiovascular: No signs of poor perfusion. No peripheral edema. Lungs: Breathing is unlabored. There is no wheezing present. Abdomen: Abdomen is soft and non-distended. Back: There is no lumbar tenderness. Musculoskeletal: Strength is 5/5. Muscle tone is normal. Neurologic: Sensation is intact throughout. His reflexes are diminished but symmetric. Psychiatric: Affect is appropriate. He is alert and oriented. ASSESSMENT: This is an 83 year old male here for a chief complaint of bilateral leg pain. His signs and symptoms are consistent with lumbar stenosis with neurogenic claudication along with lumbar disc disease with radiculopathy. I reviewed the report of the pelvic computerized tomography scan that was done for prostate cancer surveillance which noted severe disc space narrowing at L5-S1 with significant neural foraminal stenosis bilaterally at that level and the level above which correlates well with his symptoms. PLAN: I addressed options with him, and given his persistent symptoms we will check a formal lumbar computerized tomography scan to evaluate his anatomy and then proceed with a bilateral lumbar transforaminal epidural steroid injection afterwards. I went over the potential risks and benefits of this with him and he is in agreement to proceed. I also advised him that surgical consultation would be reasonable; however, he was uninterested in surgery and would like to fully exhaust conservative care prior to even considering surgery, and I think that is appropriate. I will see him for follow-up three to four weeks after his procedure for a repeat evaluation. Kadi Laws Dictated: 01/07/2019 #[id number] Typed: 01/12/2019 #[id number] cc: Fredy Constantino M.D. [facility] Comment on above: Result Comment: Elec tronically Signed By: Donnie MARTINEZ, Kaden\.br\Date and Time Signed: 01/13/19 16:12 EDT Lipid Panelon 03-31-2018 Cholesterol in HDL mass conc 29 mg/dL Abnormal [facility] Comment on above: Result Comment: Norm al Mod Risk High Risk 5-9 >48 42-48 <42 10-14 >45 40-45 <40 15-19 >38 34-38 <34 Adult >39 Performed By: #### 1 [id number] #### [facility] [address] [place] [address] Cholesterol in LDL mass conc 81 mg/dL Normal <130 [facility] Healthcare Comment on above: Performed By: #### 1 [id number] #### [facility] [address] [place] [address] Cholesterol in VLDL mass conc 79 mg/dL Abnormal <30 [facility] Comment on above: Performed By: #### 1 [id number] #### [facility] [address] [place] [address] Cholesterol mass conc 189 mg/dL Normal <200 [facility] Comment on above: Performed By: #### 1 [id number] #### [facility] [address] [place] [address] Cholesterol.total/Lisa sterol in HDL mass ratio 6.5 {ratio} Normal [facility] Comment on above: Performed By: #### 1 [id number] #### [facility] [address] [place] [address] Triglyceride mass conc 397 mg/dL Abnormal <150 [facility] Comment on above: Result Comment: 150- 199 Borderline High 200-499 High >500 Very High Performed By: #### 1 [id number] #### [facility] [address] [place] [id number] TSHon 03-31-2018 Thyrotropin Qn 3.05 mU/L Normal 0.44-3.98 [facility] Healthcare Comment on above: Performed By: #### 1 [id number] #### [facility] [address] [place] [address] TSHon 10-15-2017 Thyrotropin Qn 96.18 mU/L High 0.44-3.98 [facility] Comment on above: Performed By: #### 1 [id number] #### [facility] [address] [place] [address] Thyroxineon 10-15-2017 T4 mass conc 3.1 ug/dL Low 7.1-13.1 [facility] Comment on above: Performed By: #### 1 [id number] #### [facility] [address] [place] [address] Thyroxine, Freeon 10-15-2017 Thyroxine, Free 0.40 ng/dL Low 0.61-1.12 [facility] Comment on above: Performed By: #### 1 [id number] #### [facility] [address] [place] [address] TSHon 06-12-2017 Thyrotropin Qn 0.16 mU/L Low 0.44-3.98 [facility] Comment on above: Performed By: #### 1 [id number] #### [facility] [address] [place] [address] Thyroxineon 06-12-2017 T4 mass conc 11.5 ug/dL Normal 7.1-13.1 [facility] Comment on above: Performed By: #### 1 [id number] #### [facility] [address] [place] [address] Thyroxine, Freeon 06-12-2017 Thyroxine, Free 1.50 ng/dL High 0.61-1.12 [facility] Comment on above: Performed By: #### 1 [id number] #### [facility] [address] [place] [address] OCT MACULA CIRRUS OU (BOTH E YES) [facility] Vital Signs Date Time Vital Sign Value Performing Clinician Seun wilson 09-28-2024 13:19040 Body height 172.7 cm David Vargas Work Phone: [facility] 09-28-2024 13:190400 Body mass index (BMI) [Ratio] 26.76 kg/m2 David Jackson MD Work Phone: [facility] 09-28-2024 13:040 Body weight 79.83 kg David Vargas Work Phone: [facility] 09-28-2024 13:040 Diastolic blood pressure 60 mm[Hg] David Jackson MD Work Phone: [facility] 09-28-2024 13:040 Heart rate 56 /min David Vargas Work Phone: [facility] 09-28-2024 13:040 Systolic blood pressure 110 mm[Hg] David Jackson MD Work Phone: [facility] 09-27-2024 13:03-0400 Body mass index (BMI) [Ratio] 27.36 kg/m2 Arnold Handley APRN.CARDING SUPERVISOR Work Phone: [facility] 09-27-2024 13:03-0400 Body weight 81.6 kg Arnold Handley PROCESS MANAGER.CARDING SUPERVISOR Work Phone: [facility] 09-27-2024 13:03-0400 Diastolic blood pressure 57 mm[Hg] Arnold Handley PROCESS MANAGER.CARDING SUPERVISOR Work Phone: [facility] 09-27-2024 13:03-0400 Heart rate 57 /min Arnold Handley PROCESS MANAGER.CARDING SUPERVISOR Work Phone: [facility] 09-27-2024 13:03-0400 SaO2% (BldA) [Mass fraction] 98 % Arnold Handley PROCESS MANAGER.CARDING SUPERVISOR Work Phone: [facility] 09-27-2024 13:03-0400 Systolic blood pressure 121 mm[Hg] Arnold Handley PROCESS MANAGER.CARDING SUPERVISOR Work Phone: [facility] 09-01-2024 14:10-0400 Body height 175.26 cm [facility] 09-01-2024 14:10-0400 Body mass index (BMI) [Ratio] 27.1 kg/m2 [facility] 09-01-2024 14:10-0400 Body weight 83.57 kg [facility] 09-01-2024 14:10-0400 Diastolic blood pressure 76 mm[Hg] [facility] 09-01-2024 14:10-0400 Heart rate 43 /min [facility] 09-01-2024 14:10-0400 SaO2% (BldA) [Mass fraction] 93 % [facility] 09-01-2024 14:10-0400 Systolic blood pressure 122 mm[Hg] [facility] 08-04-2024 10:47-0400 Body height 175.26 cm [facility] 08-04-2024 10:47-0400 Body mass index (BMI) [Ratio] 26.4 kg/m2 [facility] 08-04-2024 10:47-0400 Body weight 81.24 kg [facility] 08-04-2024 10:47-0400 Diastolic blood pressure 72 mm[Hg] [facility] 08-04-2024 10:47-0400 Heart rate 60 /min [facility] 08-04-2024 10:47-0400 SaO2% (BldA) [Mass fraction] 96 % [facility] 08-04-2024 10:47-0400 Systolic blood pressure 126 mm[Hg] [facility] 07-14-2024 09:40-0400 Body height 172.7 cm Catherine Hoover MD Work Phone: [facility] 07-14-2024 09:40-0400 Body mass index (BMI) [Ratio] 26.46 kg/m2 Catherine Hoover MD Work Phone: [facility] 07-14-2024 09:40-0400 Body weight 78.93 kg Catherine Hoover MD Work Phone: [facility] 07-14-2024 09:40-0400 Diastolic blood pressure 63 mm[Hg] Catherine Hoover MD Work Phone: [facility] 07-14-2024 09:40-0400 Heart rate 61 /min Catherine Hoover MD Work Phone: [facility] 07-14-2024 09:40-0400 Systolic blood pressure 90 mm[Hg] Catherine Hoover MD Work Phone: [facility] 07-08-2024 13:30-0400 Body height 172.7 cm Arnold Handley APRN.CARDING SUPERVISOR Work Phone: [facility] 07-08-2024 13:30-0400 Body mass index (BMI) [Ratio] 27.36 kg/m2 Arnold Handley APRN.CARDING SUPERVISOR Work Phone: [facility] 07-08-2024 13:30-0400 Body weight 81.6 kg Arnold Handley APRN.CARDING SUPERVISOR Work Phone: [facility] 07-08-2024 13:30-0400 Diastolic blood pressure 53 mm[Hg] Arnold Handley APRN.CARDING SUPERVISOR Work Phone: [facility] 07-08-2024 13:30-0400 Heart rate 60 /min Arnold Handley PROCESS MANAGER.CARDING SUPERVISOR Work Phone: [facility] 07-08-2024 13:30-0400 SaO2% (BldA) [Mass fraction] 95 % Arnold Handley PROCESS MANAGER.CARDING SUPERVISOR Work Phone: [facility] 07-08-2024 13:30-0400 Systolic blood pressure 111 mm[Hg] Arnold Handley PROCESS MANAGER.CARDING SUPERVISOR Work Phone: [facility] 07-02-2024 11:41-0400 Diastolic blood pressure 70 mm[Hg] Yariel Furlong DO Work Phone: [facility] 07-02-2024 11:41-0400 Heart rate 63 /min Yariel Furlong DO Work Phone: [facility] 07-02-2024 11:41-0400 SaO2% (BldA) [Mass fraction] 97 % Yariel Furlong DO Work Phone: [facility] 07-02-2024 11:41-0400 Systolic blood pressure 122 mm[Hg] Yariel Furlong DO Work Phone: [facility] 06-29-2024 10:06-0400 Body mass index (BMI) [Ratio] 27.46 kg/m2 Lorena Frey APRN.CARDING SUPERVISOR Work Phone: [facility] 06-29-2024 10:06-0400 Body temperature 97.3 [degF] Lorena Frey APRN.CARDING SUPERVISOR Work Phone: [facility] 06-29-2024 10:06-0400 Body weight 81.9 kg Lorena Frey APRN.CARDING SUPERVISOR Work Phone: [facility] 06-29-2024 10:06-0400 Diastolic blood pressure 68 mm[Hg] Lorena Frey APRN.CARDING SUPERVISOR Work Phone: [facility] 06-29-2024 10:06-0400 Heart rate 60 /min Lorena Shante PROCESS MANAGER.CARDING SUPERVISOR Work Phone: [facility] 06-29-2024 10:06-0400 Respiratory rate 18 /min Lorena Frey PROCESS MANAGER.CARDING SUPERVISOR Work Phone: [facility] 06-29-2024 10:06-0400 SaO2% (BldA) [Mass fraction] 96 % Lorena Frey PROCESS MANAGER.CARDING SUPERVISOR Work Phone: [facility] 06-29-2024 10:06-0400 Systolic blood pressure 131 mm[Hg] Lorena Frey PROCESS MANAGER.CARDING SUPERVISOR Work Phone: [facility] 06-08-2024 09:35-0400 Diastolic blood pressure 60 mm[Hg] Yariel Furlong DO Work Phone: [facility] 06-08-2024 09:35-0400 Heart rate 60 /min Yariel Furlong DO Work Phone: [facility] 06-08-2024 09:35-0400 SaO2% (BldA) [Mass fraction] 93 % Yariel Furlong DO Work Phone: [facility] 06-08-2024 09:35-0400 Systolic blood pressure 110 mm[Hg] Yariel Furlong DO Work Phone: [facility] 05-25-2024 11:29-0500 Heart rate 58 /min Yariel Furlong DO Work Phone: [facility] 05-25-2024 11:29-0500 SaO2% (BldA) [Mass fraction] 94 % Yariel Furlong DO Work Phone: [facility] 04-20-2024 10:55-0500 Body height 172.7 cm Shaheen Diehl MD Work Phone: [facility] 04-20-2024 10:55-0500 Body mass index (BMI) [Ratio] 28.3 kg/m2 Shaheen Diehl MD Work Phone: [facility] 04-20-2024 10:55-0500 Body temperature 97.11 [degF] Shaheen Diehl MD Work Phone: [facility] 04-20-2024 10:55-0500 Body weight 84.4 kg Shaheen Diehl MD Work Phone: [facility] 04-20-2024 10:55-0500 Diastolic blood pressure 57 mm[Hg] Shaheen Diehl MD Work Phone: [facility] 04-20-2024 10:55-0500 Heart rate 61 /min Shaheen Diehl MD Work Phone: [facility] 04-20-2024 10:55-0500 Respiratory rate 16 /min Shaheen Diehl MD Work Phone: [facility] 04-20-2024 10:55-0500 SaO2% (BldA) [Mass fraction] 93 % Shaheen Diehl MD Work Phone: [facility] 04-20-2024 10:55-0500 Systolic blood pressure 139 mm[Hg] Shaheen Diehl MD Work Phone: [facility] 03-22-2024 11:09-0500 Diastolic blood pressure 80 mm[Hg] Yariel Furlong DO Work Phone: [facility] 03-22-2024 11:09-0500 Heart rate 60 /min Yariel Furlong DO Work Phone: [facility] 03-22-2024 11:09-0500 SaO2% (BldA) [Mass fraction] 96 % Yariel Furlong DO Work Phone: [facility] 03-22-2024 11:09-0500 Systolic blood pressure 130 mm[Hg] Yariel Furlong DO Work Phone: [facility] 03-02-2024 13:14-0500 Body mass index (BMI) [Ratio] 27.02 kg/m2 Arnold Handley APRN.CNP Work Phone: [facility] 03-02-2024 13:14-0500 Body weight 80.6 kg Arnold Handley PROCESS MANAGER.CARDING SUPERVISOR Work Phone: [facility] 03-02-2024 13:14-0500 Diastolic blood pressure 66 mm[Hg] Arnold Handley PROCESS MANAGER.CARDING SUPERVISOR Work Phone: [facility] 03-02-2024 13:14-0500 Heart rate 60 /min Arnold Savageall PROCESS MANAGER.CARDING SUPERVISOR Work Phone: [facility] 03-02-2024 13:14-0500 Systolic blood pressure 151 mm[Hg] Arnold Handley PROCESS MANAGER.CARDING SUPERVISOR Work Phone: [facility] 02-25-2024 11:29-0500 Body height 172.72 cm Yariel Furlong DO Work Phone: [facility] 02-25-2024 11:29-0500 Body mass index (BMI) [Ratio] 26.9 kg/m2 Yariel Furlong DO Work Phone: [facility] 02-25-2024 11:29-0500 Body temperature 98.6 [degF] Yariel Furlong DO Work Phone: [facility] 02-25-2024 11:29-0500 Body weight 80.51 kg Yariel Furlong DO Work Phone: [facility] 02-25-2024 11:29-0500 Diastolic blood pressure 66 mm[Hg] Yariel Furlong DO Work Phone: [facility] 02-25-2024 11:29-0500 Heart rate 60 /min Yariel Furlong DO Work Phone: [facility] 02-25-2024 11:29-0500 Respiratory rate 18 /min Yariel Furlong DO Work Phone: [facility] 02-25-2024 11:29-0500 SaO2% (BldA) [Mass fraction] 93 % Yariel Furlong DO Work Phone: [facility] 02-25-2024 11:29-0500 Systolic blood pressure 126 mm[Hg] Yariel Furlong DO Work Phone: [facility] 02-24-2024 10:32-0500 Diastolic blood pressure 70 mm[Hg] Yariel Furlong DO Work Phone: [facility] 02-24-2024 10:32-0500 Heart rate 56 /min Yariel Furlong DO Work Phone: [facility] 02-24-2024 10:32-0500 SaO2% (BldA) [Mass fraction] 92 % Yariel Furlong DO Work Phone: [facility] 02-24-2024 10:32-0500 Systolic blood pressure 126 mm[Hg] Yariel Furlong DO Work Phone: [facility] 01-28-2024 15:34-0500 Body weight 80.96 kg DO Yariel Furlong Work Phone: [facility] 01-28-2024 15:34-0500 Diastolic blood pressure 60 mm[Hg] DO Yariel Furlong Work Phone: [facility] 01-28-2024 15:34-0500 Heart rate 59 /min DO Yariel Furlong Work Phone: [facility] 01-28-2024 15:34-0500 SaO2% (BldA) [Mass fraction] 98 % DO Yariel Furlong Work Phone: [facility] 01-28-2024 15:34-0500 Systolic blood pressure 102 mm[Hg] DO Yariel Furlong Work Phone: [facility] 01-19-2024 09:24-0400 Body height 172.7 cm Amanda SMITH Work Phone: [facility] 01-19-2024 09:24-0400 Body mass index (BMI) [Ratio] 26.76 kg/m2 Amanda SMITH Work Phone: [facility] 01-19-2024 09:24-0400 Body weight 79.83 kg Amanda Heard PA Work Phone: [facility] 01-13-2024 10:22-0400 Body height 175.3 cm Catherine Hoover MD Work Phone: [facility] 01-13-2024 10:22-0400 Body mass index (BMI) [Ratio] 27.02 kg/m2 Catherine Hoover MD Work Phone: [facility] 01-13-2024 10:22-0400 Body weight 83.01 kg Catherine Hoover MD Work Phone: [facility] 01-13-2024 10:22-0400 Diastolic blood pressure 66 mm[Hg] Catherine Hoover MD Work Phone: [facility] 01-13-2024 10:22-0400 Systolic blood pressure 128 mm[Hg] Catherine Hoover MD Work Phone: [facility] 12-29-2023 14:19-0400 Body height 172.7 cm Brittney Vasquez MD Work Phone: [facility] 12-29-2023 14:19-0400 Body mass index (BMI) [Ratio] 27.19 kg/m2 Brittney Vasquez MD Work Phone: [facility] 12-29-2023 14:19-0400 Body temperature 97.59 [degF] Brittney Vasquez MD Work Phone: [facility] 12-29-2023 14:19-0400 Body weight 81.1 kg Brittney Vasquez MD Work Phone: [facility] 12-29-2023 14:19-0400 Diastolic blood pressure 72 mm[Hg] Brittney Vasquez MD Work Phone: [facility] 12-29-2023 14:19-0400 Heart rate 59 /min Brittney Vasquez MD Work Phone: [facility] 12-29-2023 14:19-0400 Respiratory rate 16 /min Brittney Vasquez MD Work Phone: [facility] 12-29-2023 14:19-0400 SaO2% (BldA) [Mass fraction] 96 % Brittney Vasquez MD Work Phone: [facility] 12-29-2023 14:19-0400 Systolic blood pressure 126 mm[Hg] Brittney Vasquez MD Work Phone: [facility] 12-24-2023 14:29-0400 Body height 172.7 cm David Vargas Work Phone: [facility] 12-24-2023 14:29-0400 Body mass index (BMI) [Ratio] 26.76 kg/m2 David Jackson MD Work Phone: [facility] 12-24-2023 14:290400 Body weight 79.83 kg David Vargas Work Phone: [facility] 12-24-2023 14:29-0400 Diastolic blood pressure 62 mm[Hg] David Jackson MD Work Phone: [facility] 12-24-2023 14:29-0400 Heart rate 68 /min David Vargas Work Phone: [facility] 12-24-2023 14:29-0400 Systolic blood pressure 108 mm[Hg] David Jackson MD Work Phone: [facility] 11-14-2023 13:44-0400 Body mass index (BMI) [Ratio] 26.76 kg/m2 Arnold Handley APRN.CNP Work Phone: [facility] 11-14-2023 13:44-0400 Body weight 79.8 kg Arnold Handley PROCESS MANAGER.CARDING SUPERVISOR Work Phone: [facility] 11-14-2023 13:44-0400 Diastolic blood pressure 60 mm[Hg] Arnold Handley PROCESS MANAGER.CARDING SUPERVISOR Work Phone: [facility] 11-14-2023 13:44-0400 Heart rate 60 /min Arnold Handley PROCESS MANAGER.CARDING SUPERVISOR Work Phone: [facility] 11-14-2023 13:44-0400 Systolic blood pressure 137 mm[Hg] Arnold Handley PROCESS MANAGER.CARDING SUPERVISOR Work Phone: [facility] 10-16-2023 10:17-0400 Body height 170.2 cm Yariel Furlong DO Work Phone: [facility] 10-16-2023 10:17-0400 Body mass index (BMI) [Ratio] 27.25 kg/m2 Yariel Furlong DO Work Phone: [facility] 10-16-2023 10:17-0400 Body weight 78.93 kg Yariel Furlong DO Work Phone: [facility] 10-16-2023 10:17-0400 Diastolic blood pressure 80 mm[Hg] Yariel Furlong DO Work Phone: [facility] 10-16-2023 10:17-0400 Systolic blood pressure 140 mm[Hg] Yariel Furlong DO Work Phone: [facility] 09-08-2023 15:07-0400 Body height 172.7 cm Shaheen Diehl MD Work Phone: [facility] 09-08-2023 15:07-0400 Body mass index (BMI) [Ratio] 26.82 kg/m2 Shaheen Diehl MD Work Phone: [facility] 09-08-2023 15:07-0400 Body temperature 97.3 [degF] Shaheen Diehl MD Work Phone: [facility] 09-08-2023 15:07-0400 Body weight 80 kg Shaheen Diehl MD Work Phone: [facility] 09-08-2023 15:07-0400 Diastolic blood pressure 62 mm[Hg] Shaheen Diehl MD Work Phone: [facility] 09-08-2023 15:07-0400 Heart rate 57 /min Shaheen Diehl MD Work Phone: [facility] 09-08-2023 15:07-0400 Respiratory rate 16 /min Shaheen Diehl MD Work Phone: [facility] 09-08-2023 15:07-0400 SaO2% (BldA) [Mass fraction] 97 % Shaheen Diehl MD Work Phone: [facility] 09-08-2023 15:07-0400 Systolic blood pressure 120 mm[Hg] Shaheen Diehl MD Work Phone: [facility] 08-27-2023 11:45-0400 Body height 170.2 cm Brandy Evangelista PROCESS MANAGER-CN P Work Phone: [facility] 08-27-2023 11:45-0400 Body mass index (BMI) [Ratio] 26.31 kg/m2 Brandy Evangelista PROCESS MANAGER-CARDING SUPERVISOR Work Phone: [facility] 08-27-2023 11:45-0400 Body temperature 97.2 [degF] Brandy Evangelista PROCESS MANAGER-CN P Work Phone: [facility] 08-27-2023 11:45-0400 Body weight 76.2 kg Brandy Evangelista PROCESS MANAGER-CN P Work Phone: [facility] 08-27-2023 11:45-0400 Diastolic blood pressure 80 mm[Hg] Brandy Evangelista PROCESS MANAGER-CARDING SUPERVISOR Work Phone: [facility] 08-27-2023 11:45-0400 Heart rate 60 /min Brandy Evangelista APRN-CN P Work Phone: [facility] 08-27-2023 11:45-0400 Respiratory rate 22 /min Brandy Evangelista APRN-CN P Work Phone: [facility] 08-27-2023 11:45-0400 SaO2% (BldA) [Mass fraction] 97 % Brandy Evangelista PROCESS MANAGER-CARDING SUPERVISOR Work Phone: [facility] 08-27-2023 11:45-0400 Systolic blood pressure 136 mm[Hg] Brandy Evangelista APRN-CARDING SUPERVISOR Work Phone: [facility] 08-14-2023 15:39-0400 Body height 170.2 cm Yariel Furlong DO Work Phone: [facility] 08-14-2023 15:39-0400 Body mass index (BMI) [Ratio] 28.02 kg/m2 Yariel Furlong DO Work Phone: [facility] 08-14-2023 15:39-0400 Body temperature 98.71 [degF] Yariel Furlong DO Work Phone: [facility] 08-14-2023 15:39-0400 Body weight 81.15 kg Yariel Furlong DO Work Phone: [facility] 08-14-2023 15:39-0400 Diastolic blood pressure 54 mm[Hg] Yariel Furlong DO Work Phone: [facility] 08-14-2023 15:39-0400 Heart rate 58 /min Yariel Furlong DO Work Phone: [facility] 08-14-2023 15:39-0400 Respiratory rate 18 /min Yariel Furlong DO Work Phone: [facility] 08-14-2023 15:39-0400 SaO2% (BldA) [Mass fraction] 95 % Yariel Furlong DO Work Phone: [facility] 08-14-2023 15:39-0400 Systolic blood pressure 112 mm[Hg] Yariel Villanueva DO Work Phone: [facility] 07-11-2023 11:02-0400 Body height 172.7 cm MARY Smith MD Work Phone: [facility] 07-11-2023 11:02-0400 Body temperature 97.39 [degF] MARY Smith MD Work Phone: [facility] 07-11-2023 11:02-0400 Body weight 81.19 kg MARY Smith MD Work Phone: [facility] 07-11-2023 11:02-0400 Diastolic blood pressure 74 mm[Hg] MARY Smith MD Work Phone: [facility] 07-11-2023 11:02-0400 Heart rate 64 /min MARY Smith MD Work Phone: [facility] 07-11-2023 11:02-0400 Respiratory rate 16 /min MARY Smith MD Work Phone: [facility] 07-11-2023 11:02-0400 SaO2% (BldA) [Mass fraction] 97 % MARY Smith MD Work Phone: [facility] 07-11-2023 11:02-0400 Systolic blood pressure 156 mm[Hg] MARY Smith MD Work Phone: [facility] 07-07-2023 15:07-0400 Body height 172.7 cm Shaheen Diehl MD Work Phone: [facility] 07-07-2023 15:07-0400 Body temperature 97.7 [degF] Shaheen Diehl MD Work Phone: [facility] 07-07-2023 15:07-0400 Body weight 81.1 kg Shaheen Diehl MD Work Phone: [facility] 07-07-2023 15:07-0400 Diastolic blood pressure 73 mm[Hg] Shaheen Diehl MD Work Phone: [facility] 07-07-2023 15:07-0400 Heart rate 60 /min Shaheen Diehl MD Work Phone: [facility] 07-07-2023 15:07-0400 Respiratory rate 16 /min Shaheen Diehl MD Work Phone: [facility] 07-07-2023 15:07-0400 SaO2% (BldA) [Mass fraction] 96 % Shaheen Diehl MD Work Phone: [facility] 07-07-2023 15:07-0400 Systolic blood pressure 139 mm[Hg] Shaheen Diehl MD Work Phone: [facility] 05-30-2023 10:08-0500 Body height 172.7 cm Shaheen Diehl MD Work Phone: [facility] 05-30-2023 10:08-0500 Body temperature 97.7 [degF] Shaheen Diehl MD Work Phone: [facility] 05-30-2023 10:08-0500 Body weight 79.5 kg Shaheen Diehl MD Work Phone: [facility] 05-30-2023 10:08-0500 Diastolic blood pressure 55 mm[Hg] Shaheen Diehl MD Work Phone: [facility] 05-30-2023 10:08-0500 Heart rate 59 /min Shaheen Diehl MD Work Phone: [facility] 05-30-2023 10:08-0500 Respiratory rate 18 /min Shaheen Diehl MD Work Phone: [facility] 05-30-2023 10:08-0500 SaO2% (BldA) [Mass fraction] 96 % Shaheen Diehl MD Work Phone: [facility] 05-30-2023 10:08-0500 Systolic blood pressure 138 mm[Hg] Shaheen Diehl MD Work Phone: [facility] 05-16-2023 13:17-0500 Body height 172.7 cm Arnold Handley PROCESS MANAGER.CARDING SUPERVISOR Work Phone: [facility] 05-16-2023 13:17-0500 Body weight 79.8 kg Arnold Handley PROCESS MANAGER.CARDING SUPERVISOR Work Phone: [facility] 05-16-2023 13:17-0500 Diastolic blood pressure 68 mm[Hg] Arnold Richi PROCESS MANAGER.CARDING SUPERVISOR Work Phone: [facility] 05-16-2023 13:17-0500 Heart rate 60 /min Arnold Handley PROCESS MANAGER.CARDING SUPERVISOR Work Phone: [facility] 05-16-2023 13:17-0500 Systolic blood pressure 142 mm[Hg] Arnold Savageall PROCESS MANAGER.CARDING SUPERVISOR Work Phone: [facility] 01-03-2023 13:31-0400 Body weight 80.11 kg Arnold Handley PROCESS MANAGER.CARDING SUPERVISOR Work Phone: [facility] 01-03-2023 13:31-0400 Diastolic blood pressure 72 mm[Hg] Arnold Savageall PROCESS MANAGER.CARDING SUPERVISOR Work Phone: [facility] 01-03-2023 13:31-0400 Heart rate 60 /min Arnold Handley PROCESS MANAGER.CARDING SUPERVISOR Work Phone: [facility] 01-03-2023 13:31-0400 SaO2% (BldA) [Mass fraction] 95 % Arnold Handley PROCESS MANAGER.CARDING SUPERVISOR Work Phone: [facility] 01-03-2023 13:31-0400 Systolic blood pressure 132 mm[Hg] Arnold Richi PROCESS MANAGER.CARDING SUPERVISOR Work Phone: [facility] 11-13-2022 10:56-0400 Body height 172.7 cm Shaheen Diehl MD Work Phone: [facility] 11-13-2022 10:56-0400 Body temperature 97.5 [degF] Shaheen Diehl MD Work Phone: [facility] 11-13-2022 10:56-0400 Body weight 79.11 kg Shaheen Diehl MD Work Phone: [facility] 11-13-2022 10:56-0400 Diastolic blood pressure 72 mm[Hg] Shaheen Diehl MD Work Phone: [facility] 11-13-2022 10:56-0400 Heart rate 60 /min Shaheen Diehl MD Work Phone: [facility] 11-13-2022 10:56-0400 Respiratory rate 16 /min Shaheen Diehl MD Work Phone: [facility] 11-13-2022 10:56-0400 SaO2% (BldA) [Mass fraction] 99 % Shaheen Diehl MD Work Phone: [facility] 11-13-2022 10:56-0400 Systolic blood pressure 161 mm[Hg] Shaheen Diehl MD Work Phone: [facility] 10-18-2022 15:39-0400 Body height 170.18 cm Yariel BentleyPagido Work Phone: [facility] DO Work Phone: 10-18-2022 15:39-0400 Body mass index (BMI) [Ratio] 26.63 kg/m2 Yariel BentleyPagido Work Phone: [facility] DO Work Phone: 10-18-2022 15:39-0400 Body surface area Derived from formula 1.89 m2 Yariel Washington ApeniMEDng Work Phone: [facility] [employer] 250 DO Work Phone: 10-18-2022 15:39-0400 Body weight 77.11 kg Yariel Bentleylong Work Phone: [facility] 250 DO Work Phone: 10-18-2022 15:39-0400 Diastolic blood pressure 72 mm[Hg] Yariel Bentleylong Work Phone: [facility] 250 DO Work Phone: 10-18-2022 15:39-0400 Heart rate 64 /min Yariel Bentleylong Work Phone: [facility] 250 DO Work Phone: 10-18-2022 15:39-0400 Systolic blood pressure 138 mm[Hg] Yariel Bentleylong Work Phone: [facility] 250 DO Work Phone: 08-14-2022 10:51-0400 Body height 172.7 cm Shaheen Diehl MD Work Phone: [facility] 08-14-2022 10:51-0400 Body temperature 97.59 [degF] Shaheen Diehl MD Work Phone: [facility] 08-14-2022 10:51-0400 Body weight 78.65 kg Shaheen Diehl MD Work Phone: [facility] 08-14-2022 10:51-0400 Diastolic blood pressure 66 mm[Hg] Shaheen Diehl MD Work Phone: [facility] 08-14-2022 10:51-0400 Heart rate 60 /min Shaheen Diehl MD Work Phone: [facility] 08-14-2022 10:51-0400 Respiratory rate 16 /min Shaheen Diehl MD Work Phone: [facility] 08-14-2022 10:51-0400 SaO2% (BldA) [Mass fraction] 96 % Shaheen Diehl MD Work Phone: [facility] 08-14-2022 10:51-0400 Systolic blood pressure 159 mm[Hg] Shaheen Diehl MD Work Phone: [facility] 05-17-2022 15:58-0500 Body height 172.7 cm Selvin Pat MD Work Phone: [facility] 05-17-2022 15:58-0500 Body weight 78.02 kg Selvin Pat MD Work Phone: [facility] 05-17-2022 15:58-0500 Diastolic blood pressure 56 mm[Hg] Selvin Pat MD Work Phone: [facility] 05-17-2022 15:58-0500 Heart rate 62 /min Selvin Pat MD Work Phone: [facility] 05-17-2022 15:58-0500 Systolic blood pressure 151 mm[Hg] Selvin Pat MD Work Phone: [facility] 05-10-2022 09:56-0500 Body temperature 97.9 [degF] Shaheen Diehl MD Work Phone: [facility] 05-10-2022 09:56-0500 Body weight 77.84 kg Shaheen Diehl MD Work Phone: [facility] 05-10-2022 09:56-0500 Diastolic blood pressure 70 mm[Hg] Shaheen Diehl MD Work Phone: [facility] 05-10-2022 09:56-0500 Heart rate 60 /min Shaheen Diehl MD Work Phone: [facility] 05-10-2022 09:56-0500 Respiratory rate 16 /min Shaheen Diehl MD Work Phone: [facility] 05-10-2022 09:56-0500 SaO2% (BldA) [Mass fraction] 97 % Shaheen Diehl MD Work Phone: [facility] 05-10-2022 09:56-0500 Systolic blood pressure 154 mm[Hg] Shaheen Diehl MD Work Phone: [facility] 04-16-2022 09:30-0500 Body height 170.18 cm Yariel Bentleylong Work Phone: [facility] [employer] 250 DO Work Phone: 04-16-2022 09:30-0500 Body mass index (BMI) [Ratio] 26.63 kg/m2 Yariel G Furlong Work Phone: [facility] [employer] 250 DO Work Phone: 04-16-2022 09:30-0500 Body surface area Derived from formula 1.89 m2 Yariel G Mclong Work Phone: [facility] [employer] 250 DO Work Phone: 04-16-2022 09:30-0500 Body weight 77.11 kg Yariel Bentleylong Work Phone: [facility] [employer] 250 DO Work Phone: 04-16-2022 09:30-0500 Diastolic blood pressure 64 mm[Hg] Yariel G Mclong Work Phone: [facility] [employer] 250 DO Work Phone: 04-16-2022 09:30-0500 Heart rate 66 /min Yariel Bentleylong Work Phone: [facility] [employer] 250 DO Work Phone: 04-16-2022 09:30-0500 Systolic blood pressure 124 mm[Hg] Yariel G Furlong Work Phone: [facility] [employer] 250 DO Work Phone: 04-11-2022 13:30-0500 Body weight 75.57 kg Arnold Handley APRN.CNP Work Phone: [facility] 04-11-2022 13:30-0500 Diastolic blood pressure 69 mm[Hg] Arnold Handley APRN.CNP Work Phone: [facility] 04-11-2022 13:30-0500 Heart rate 60 /min Arnold Handley PROCESS MANAGER.CARDING SUPERVISOR Work Phone: [facility] 04-11-2022 13:30-0500 Systolic blood pressure 158 mm[Hg] Arnold Handley PROCESS MANAGER.CARDING SUPERVISOR Work Phone: [facility] 03-26-2022 12:00-0500 Diastolic blood pressure 69 mm[Hg] DO Yariel Furlong Work Phone: [facility] 03-26-2022 12:00-0500 Heart rate 61 /min DO Yariel Furlong Work Phone: [facility] 03-26-2022 12:00-0500 Respiratory rate 18 /min DO Yariel Furlong Work Phone: [facility] 03-26-2022 12:00-0500 SaO2% (BldA) [Mass fraction] 94 % DO Yariel Furlong Work Phone: [facility] 03-26-2022 12:00-0500 Systolic blood pressure 128 mm[Hg] DO Yariel Furlong Work Phone: [facility] 03-26-2022 08:00-0500 Body temperature 97.2 [degF] DO Yariel Furlong Work Phone: [facility] 03-26-2022 06:00-0500 Body weight 79.2 kg DO Yariel Furlong Work Phone: [facility] 03-23-2022 08:00-0500 Inhaled oxygen flow rate 2 L/min DO Yariel WigWaglong Work Phone: [facility] 03-23-2022 00:14-0500 Body height 172.72 cm DO Yariel Furlong Work Phone: [facility] 03-22-2022 22:00-0500 Diastolic blood pressure 77 mm[Hg] DO Yariel Furlong Work Phone: [facility] 03-22-2022 22:00-0500 Inhaled oxygen flow rate 2 L/min DO Yariel Furlong Work Phone: [facility] 03-22-2022 22:00-0500 Respiratory rate 23 /min DO Yariel Furlong Work Phone: [facility] 03-22-2022 22:00-0500 SaO2% (BldA) [Mass fraction] 96 % DO Yariel Furlong Work Phone: [facility] 03-22-2022 22:00-0500 Systolic blood pressure 160 mm[Hg] DO Yariel Furlong Work Phone: [facility] 03-22-2022 18:27-0500 Body height 172.72 cm DO Yariel Furlong Work Phone: [facility] 03-22-2022 18:27-0500 Body temperature 97.1 [degF] DO Yariel Furlong Work Phone: [facility] 03-22-2022 18:27-0500 Body weight 84 kg DO Yariel Furlong Work Phone: [facility] 03-22-2022 08:44-0500 Body temperature 98.4 [degF] DO Yariel Furlong Work Phone: [facility] 03-22-2022 08:44-0500 Diastolic blood pressure 76 mm[Hg] DO Yariel Furlong Work Phone: [facility] 03-22-2022 08:44-0500 Heart rate 60 /min DO Yariel Furlong Work Phone: [facility] 03-22-2022 08:44-0500 Respiratory rate 18 /min DO Yariel Furlong Work Phone: [facility] 03-22-2022 08:44-0500 SaO2% (BldA) [Mass fraction] 94 % DO Yariel Furlong Work Phone: [facility] 03-22-2022 08:44-0500 Systolic blood pressure 153 mm[Hg] DO Yariel Furlong Work Phone: [facility] 03-22-2022 06:00-0500 Body weight 75.9 kg DO Yariel Furlong Work Phone: [facility] 03-21-2022 15:50-0500 Inhaled oxygen flow rate 3 L/min DO Yariel WigWaglong Work Phone: [facility] 03-21-2022 11:50-0500 Body height 175.26 cm DO Yariel WigWaglong Work Phone: [facility] 02-19-2022 11:20-0500 Diastolic blood pressure 86 mm[Hg] Yariel G WigWaglong Work Phone: [facility] [employer] 250 DO Work Phone: 02-19-2022 11:20-0500 Systolic blood pressure 154 mm[Hg] Yariel G WigWaglong Work Phone: [facility] [employer] 250 DO Work Phone: 02-19-2022 10:56-0500 Body height 170.18 cm Yariel G ApeniMEDng Work Phone: [facility] [employer] 250 DO Work Phone: 02-19-2022 10:56-0500 Body mass index (BMI) [Ratio] 27.25 kg/m2 Yariel G Furlong Work Phone: [facility] [employer] 250 DO Work Phone: 02-19-2022 10:56-0500 Body surface area Derived from formula 1.91 m2 Yariel G Furlong Work Phone: [facility] 250 DO Work Phone: 02-19-2022 10:56-0500 Body weight 78.93 kg Yariel Washington Furlong Work Phone: [facility] 250 DO Work Phone: 02-19-2022 10:56-0500 Diastolic blood pressure 82 mm[Hg] Yariel Washintgon Furlong Work Phone: [facility] 250 DO Work Phone: 02-19-2022 10:56-0500 Heart rate 60 /min Yariel Washington Furlong Work Phone: [facility] 250 DO Work Phone: 02-19-2022 10:56-0500 Systolic blood pressure 162 mm[Hg] Yariel Washington Furlong Work Phone: [facility] 250 DO Work Phone: 02-08-2022 10:58-0500 Body temperature 97.9 [degF] [facility] [place] Work Phone: [facility] 02-08-2022 10:58-0500 Diastolic blood pressure 70 mm[Hg] [facility] [place] Work Phone: [facility] 02-08-2022 10:58-0500 Heart rate 62 /min [facility] Work Phone: [facility] 02-08-2022 10:58-0500 Respiratory rate 18 /min [facility] Work Phone: [facility] 02-08-2022 10:58-0500 SaO2% (BldA) [Mass fraction] 96 % [facility] Work Phone: [facility] 02-08-2022 10:58-0500 Systolic blood pressure 156 mm[Hg] [facility] [place] Work Phone: [facility] 01-25-2022 08:50-0400 Body height 170.2 cm Shaheen Diehl MD Work Phone: [facility] 01-25-2022 08:50-0400 Body temperature 97.2 [degF] Shaheen Diehl MD Work Phone: [facility] 01-25-2022 08:50-0400 Body weight 77.29 kg Shaheen Diehl MD Work Phone: [facility] 01-25-2022 08:50-0400 Diastolic blood pressure 69 mm[Hg] Shaheen Diehl MD Work Phone: [facility] 01-25-2022 08:50-0400 Heart rate 60 /min Shaheen Diehl MD Work Phone: [facility] 01-25-2022 08:50-0400 Respiratory rate 18 /min Shaheen Diehl MD Work Phone: [facility] 01-25-2022 08:50-0400 SaO2% (BldA) [Mass fraction] 97 % Shaheen Diehl MD Work Phone: [facility] 01-25-2022 08:50-0400 Systolic blood pressure 168 mm[Hg] Shaheen Diehl MD Work Phone: [facility] 01-11-2022 09:34-0400 Body height 170.2 cm Shaheen Diehl MD Work Phone: [facility] 01-11-2022 09:34-0400 Body temperature 97.59 [degF] Shaheen Diehl MD Work Phone: [facility] 01-11-2022 09:34-0400 Body weight 79.11 kg Shaheen Diehl MD Work Phone: [facility] 01-11-2022 09:34-0400 Diastolic blood pressure 78 mm[Hg] Shaheen Diehl MD Work Phone: [facility] 01-11-2022 09:34-0400 Heart rate 60 /min Shaheen Diehl MD Work Phone: [facility] 01-11-2022 09:34-0400 Respiratory rate 16 /min Shaheen Diehl MD Work Phone: [facility] 01-11-2022 09:34-0400 SaO2% (BldA) [Mass fraction] 98 % Shaheen Diehl MD Work Phone: [facility] 01-11-2022 09:34-0400 Systolic blood pressure 170 mm[Hg] Shaheen Diehl MD Work Phone: [facility] 11-09-2021 12:49-0400 Body height 170.2 cm Arnold Handley PROCESS MANAGER.CARDING SUPERVISOR Work Phone: [facility] 11-09-2021 12:49-0400 Body weight 78.47 kg Arnold Handley PROCESS MANAGER.CARDING SUPERVISOR Work Phone: [facility] 11-09-2021 12:49-0400 Diastolic blood pressure 72 mm[Hg] Arnold Handley PROCESS MANAGER.CARDING SUPERVISOR Work Phone: [facility] 11-09-2021 12:49-0400 Heart rate 62 /min Arnold Handley PROCESS MANAGER.CARDING SUPERVISOR Work Phone: [facility] 11-09-2021 12:49-0400 Systolic blood pressure 142 mm[Hg] Arnold Handley PROCESS MANAGER.CARDING SUPERVISOR Work Phone: [facility] 08-11-2021 17:21-0400 Diastolic blood pressure 76 mm[Hg] DO Yariel Furlong Work Phone: [facility] 08-11-2021 17:21-0400 Heart rate 59 /min DO Yariel Furlong Work Phone: [facility] 08-11-2021 17:21-0400 Respiratory rate 18 /min DO Yariel Furlong Work Phone: [facility] 08-11-2021 17:21-0400 SaO2% (BldA) [Mass fraction] 98 % DO Yariel Furlong Work Phone: [facility] 08-11-2021 17:21-0400 Systolic blood pressure 167 mm[Hg] DO Yariel Furlong Work Phone: [facility] 08-11-2021 13:30-0400 Body temperature 97.9 [degF] DO Yariel Furlong Work Phone: [facility] 08-11-2021 13:29-0400 Body height 172.72 cm DO Yariel Furlong Work Phone: [facility] 08-11-2021 13:29-0400 Body mass index (BMI) [Ratio] 25.8 kg/m2 DO Yariel Furlong Work Phone: [facility] 08-11-2021 13:29-0400 Body weight 77 kg DO Yariel Furlong Work Phone: [facility] 07-17-2021 11:44-0400 Body height 172.7 cm Arnold Handley PROCESS MANAGER.CARDING SUPERVISOR Work Phone: [facility] 07-17-2021 11:44-0400 Body weight 78.47 kg Arnold Handley PROCESS MANAGER.CARDING SUPERVISOR Work Phone: [facility] 07-17-2021 11:44-0400 Diastolic blood pressure 80 mm[Hg] Arnold Handley PROCESS MANAGER.CARDING SUPERVISOR Work Phone: [facility] 07-17-2021 11:44-0400 Heart rate 60 /min Arnold Handley PROCESS MANAGER.CARDING SUPERVISOR Work Phone: [facility] 07-17-2021 11:44-0400 Systolic blood pressure 142 mm[Hg] Arnold Handley PROCESS MANAGER.CARDING SUPERVISOR Work Phone: [facility] 05-16-2021 14:59-0500 Diastolic blood pressure 62 mm[Hg] Yariel G Furlong Work Phone: [place] [address] DO Work Phone: 05-16-2021 14:59-0500 Systolic blood pressure 138 mm[Hg] Yariel Washington Furlong Work Phone: [facility] 250 DO Work Phone: 05-16-2021 14:25-0500 Body height 170.18 cm Yariel G Furlong Work Phone: [facility] 250 DO Work Phone: 05-16-2021 14:25-0500 Body mass index (BMI) [Ratio] 27.57 kg/m2 Yariel G Furlong Work Phone: [facility] 250 DO Work Phone: 05-16-2021 14:25-0500 Body surface area Derived from formula 1.92 m2 Yariel G Furlong Work Phone: [facility] 250 DO Work Phone: 05-16-2021 14:25-0500 Body weight 79.83 kg Yariel Washington Furlong Work Phone: [facility] 250 DO Work Phone: 05-16-2021 14:25-0500 Diastolic blood pressure 80 mm[Hg] Yariel G Furlong Work Phone: [facility] 250 DO Work Phone: 05-16-2021 14:25-0500 Heart rate 60 /min Yariel G Furlong Work Phone: [facility] 250 DO Work Phone: 05-16-2021 14:25-0500 Systolic blood pressure 152 mm[Hg] Yariel G Furlong Work Phone: [facility] DO Work Phone: Encounters Encounter Date Encounter Type Care Provider Facility Start: 09-28-2024 End: 09-28-2024 Office outpatient visit 25 minutes David Jackson MD Work Phone: [facility] Comment on above: Sick sinus syndrome (Multi) (Primary Dx); Paroxysmal atrial fibrillation (Multi); Pacemaker; Mild coronary artery disease; LV dysfunction; Mixed hyperlipidemia; Essential hypertension; clother in current use of anticoagulant therapy; Stage 3a chronic kidney disease (Multi); BMI 26.0-26.9,adult; Never smoked tobacco; Hyperthyroidism Start: 09-28-2024 End: 09-28-2024 ambulatory [facility] Ambulatory Start: 09-27-2024 End: 09-27-2024 Patient encounter procedure Arnold Handley APRN.CNP Work Phone: Endocrinology Comment on above: Type 2 diabetes rocky itus with stage 3b chronic kidney disease, with long-term current use of insulin (HCC) (Primary Dx); Essential hypertension; Dyslipidemia; Acquired hypothyroidism Start: 09-27-2024 End: 09-27-2024 ambulatory ARNOLD HANDLEY Facility:[facility] Start: 09-16-2024 End: 09-16-2024 Patient encounter procedure Roland Gutierrez MD Work Phone: Ophthalmology Comment on above: Epiretinal membrane, bilateral (Primary Dx); Type 2 diabetes mellitus without complication, with long-term current use of insulin (HCC); Pseudophakia of both eyes; Blurry vision; Fuchs' corneal dystrophy of both eyes Start: 09-16-2024 End: 09-16-2024 ambulatory ROLAND GUTIERREZ Facility:[facility] Start: 09-01-2024 End: 09-01-2024 ambulatory [facility] Work Phone: Start: 09-01-2024 End: 09-01-2024 Patient encounter procedure [facility] Eulalia xavierician [facility] Work Phone: Start: 08-04-2024 End: 08-04-2024 ambulatory [facility] Work Phone: Start: 08-04-2024 End: 08-04-2024 Patient encounter procedure [facility] Work Phone: Start: 08-03-2024 End: 08-03-2024 Patient encounter procedure Yariel Furlong DO Work Phone: [facility]-Pacemaker Check Start: 08-03-2024 End: 08-03-2024 ambulatory Mowanda Evansi Facility:[facility] Start: 08-03-2024 Non-patient / Non-visit [facility] Physician [facility] Start: 07-18-2024 End: 07-21-2024 Refill Arnold Handley APRN.CNP Work Phone: Endocrinology Comment on above: Refill Request Start: 07-15-2024 End: 07-15-2024 ambulatory Yariel Furlong DO Work Phone: [facility] Work Phone: Start: 07-15-2024 End: 07-15-2024 Patient encounter procedure Yariel Furlong DO Work Phone: [facility] Physician [facility] Work Phone: Start: 07-15-2024 Non-patient / Non-visit Yariel Furlong DO Work Phone: [facility] Physician [facility] Work Phone: Start: 07-14-2024 End: 07-14-2024 Bamboo flowsheet Catherine Hoover MD Work Phone: [facility] Start: 07-14-2024 End: 07-14-2024 Bamboo flowsheet Catherine Hoover MD Work Phone: [facility] Start: 07-14-2024 End: 07-14-2024 Patient encounter procedure Catherine Hoover MD Work Phone: [facility] Comment on above: Right ear impacted c erumen (Primary Dx); Foreign body of left ear, initial encounter; Keratosis obturans of external ear canal, left Start: 07-14-2024 End: 07-14-2024 ambulatory CATHERINE HOOVER Not Available Start: 07-08-2024 End: 07-08-2024 Patient encounter procedure Arnold Handley APRN.CARDING SUPERVISOR Work Phone: Endocrinology Comment on above: Type 2 diabetes rocky itus with stage 3b chronic kidney disease, with long-term current use of insulin (HCC) (Primary Dx); Essential hypertension; Dyslipidemia; Acquired hypothyroidism Start: 07-08-2024 End: 07-08-2024 ambulatory ARNOLD HANDLEY Facility:[facility] Start: 07-02-2024 End: 07-02-2024 ambulatory Yariel Limang DO Work Phone: [facility] Work Phone: Start: 07-02-2024 End: 07-02-2024 Patient encounter procedure Yariel Bentleylong DO Work Phone: [facility] Work Phone: Start: 06-29-2024 End: 06-29-2024 ambulatory [facility] Work Phone: Hematology/Oncology Comment on above: Prostate CA (HCC) (P rimary Dx); PSA elevation Start: 06-29-2024 End: 06-29-2024 Patient encounter procedure Lorena Frey APRN.CARDING SUPERVISOR Work Phone: Hematology/Oncology Start: 06-29-2024 End: 06-29-2024 ambulatory [facility] Work Phone: Hematology/Oncology Comment on above: Type 2 diabetes rocky itus with stage 3b chronic kidney disease, with long-term current use of insulin (HCC); Prostate CA (HCC); History of diffuse large B-cell lymphoma Prostate CA (HCC) (P rimary Dx); History of diffuse large B-cell lymphoma; Type 2 diabetes mellitus with stage 3b chronic kidney disease, with long-term current use of insulin (HCC) Start: 06-19-2024 End: 06-23-2024 Refill Arnold Handley APRN.CARDING SUPERVISOR Work Phone: Endocrinology Comment on above: Refill Request Start: 06-15-2024 Non-patient / Non-visit Yariel Furlong DO Work Phone: [facility] Work Phone: Start: 06-15-2024 End: 06-15-2024 ambulatory Yariel Furlong DO Work Phone: [facility] Work Phone: Start: 06-15-2024 End: 06-15-2024 Patient encounter procedure Yariel Furlong DO Work Phone: [facility] Work Phone: Start: 06-08-2024 End: 06-08-2024 ambulatory Yariel Furlong DO Work Phone: [facility] Work Phone: Start: 06-08-2024 End: 06-08-2024 Patient encounter procedure Yariel Furlong DO Work Phone: [facility] Work Phone: Start: 06-07-2024 End: 06-07-2024 Orders Only Karla Dumas [facility] Work Phone: Hematology/Oncology Start: 06-01-2024 Non-patient / Non-visit Yariel Furlong DO Work Phone: [facility] Work Phone: Start: 06-01-2024 End: 06-01-2024 ambulatory Yariel Furlong DO Work Phone: [facility] Work Phone: Start: 06-01-2024 End: 06-01-2024 Patient encounter procedure Yariel Furlong DO Work Phone: [facility] Work Phone: Start: 05-25-2024 End: 05-25-2024 ambulatory Yariel Furlong DO Work Phone: [facility] Work Phone: Start: 05-25-2024 End: 05-25-2024 Patient encounter procedure Yariel Furlong DO Work Phone: [facility] Work Phone: Start: 05-07-2024 End: 05-07-2024 Patient encounter procedure Yariel Furlong DO Work Phone: [facility] [place] Work Phone: Start: 05-07-2024 End: 05-07-2024 ambulatory Yariel Furlong DO Work Phone: [facility] Work Phone: Start: 05-06-2024 End: 05-07-2024 ambulatory Arnold Handley APRN.CARDING SUPERVISOR Work Phone: Endocrinology Comment on above: INS ASP PROT INJ FLE XPEN Start: 04-20-2024 End: 04-20-2024 Telephone encounter Shaheen Diehl MD [facility] Comment on above: Future Appointment Start: 04-20-2024 End: 04-20-2024 Office outpatient visit 25 minutes Shaheen Diehl MD Work Phone: Hematology/Oncology Comment on above: Prostate CA (HCC) (P rimary Dx); Type 2 diabetes mellitus with stage 3b chronic kidney disease, with long-term current use of insulin (HCC); History of diffuse large B-cell lymphoma Start: 04-20-2024 End: 04-20-2024 ambulatory Lab/[place] Work Phone: Hematology/Oncology Comment on above: Prostate CA (HCC) Start: 03-31-2024 End: 03-31-2024 Telephone encounter Arnold Handley APRN.CARDING SUPERVISOR Work Phone: Endocrinology Comment on above: Forms ([facility] [place] - ) Start: 03-22-2024 End: 03-22-2024 Patient encounter procedure Yariel Limang DO Work Phone: [facility] Work Phone: Start: 03-10-2024 End: 03-10-2024 Bamboo flowsheet Elías Franz PT Work Phone: [facility] Start: 03-10-2024 End: 03-10-2024 Bamboo flowsheet Elías Franz PT Work Phone: [facility] Start: 03-10-2024 End: 03-10-2024 ambulatory Elías Franz PT Work Phone: [facility] Comment on above: Lumbar paraspinal mu scle spasm (Primary Dx) Start: 03-04-2024 Non-patient / Non-visit Yariel Limang DO Work Phone: [facility] Work Phone: Start: 03-04-2024 End: 03-04-2024 Patient encounter procedure Yariel Limang DO Work Phone: [facility] Work Phone: Start: 03-03-2024 End: 03-03-2024 Patient encounter procedure Yariel Limang DO Work Phone: [facility]-CT Scan [facility] [place] Work Phone: Start: 03-03-2024 End: 03-03-2024 ambulatory Lila Aly Arcadio Facility:[facility] Start: 03-02-2024 End: 03-02-2024 ambulatory YARIEL BENTLEYDAVIDRAPHAEL Facility:[facility] Start: 03-02-2024 End: 03-02-2024 Patient encounter procedure Arnold Handley APRN.CARDING SUPERVISOR Work Phone: Endocrinology Comment on above: Type 2 diabetes rocky itus with stage 3b chronic kidney disease, with long-term current use of insulin (HCC) (Primary Dx); Essential hypertension; Dyslipidemia; Acquired hypothyroidism Start: 03-01-2024 End: 03-01-2024 Bamboo flowsheet Elías Laura Jay PT Work Phone: [facility] Start: 03-01-2024 End: 03-01-2024 Bamboo flowsheet Elías Laura Jay PT Work Phone: [facility] Start: 03-01-2024 End: 03-01-2024 ambulatory Elías T Jay PT Work Phone: [facility] Comment on above: Lumbar paraspinal mu scle spasm (Primary Dx) Start: 02-25-2024 End: 02-25-2024 Patient encounter procedure Yariel Furlong DO Work Phone: [facility] Work Phone: Start: 02-24-2024 End: 02-24-2024 Patient encounter procedure Yariel Furlong DO Work Phone: [facility] Work Phone: Start: 02-15-2024 End: 02-16-2024 Refill Brandy Evangelista PROCESS MANAGER-CARDING SUPERVISOR Work Phone: [facility] Start: 02-04-2024 End: 02-04-2024 ambulatory Yariel Furlong Facility:[facility] Start: 02-04-2024 Non-patient / Non-visit Yariel Furlong DO Work Phone: [facility] Start: 01-28-2024 End: 01-28-2024 ambulatory DO Yariel Furlong Work Phone: [facility] Work Phone: Start: 01-28-2024 End: 01-28-2024 Patient encounter procedure DO Yariel Furlong Work Phone: [facility] Work Phone: Start: 01-24-2024 End: 01-27-2024 Refill Arnold Savageall PROCESS MANAGER.CARDING SUPERVISOR Work Phone: Endocrinology Comment on above: Refill Request Start: 01-24-2024 End: 01-27-2024 Refill Arnold Handley PROCESS MANAGER.CARDING SUPERVISOR Work Phone: Endocrinology Comment on above: Refill Request Start: 01-23-2024 End: 01-23-2024 Telephone encounter Amanda SMITH Work Phone: [facility] Comment on above: Xrays Start: 01-19-2024 End: 01-19-2024 Bamboo flowsheet Amanda SMITH Work Phone: [facility] Start: 01-19-2024 End: 01-19-2024 Bamboo flowsheet Amanda SMITH Work Phone: [facility] Start: 01-19-2024 End: 01-19-2024 Patient encounter procedure DO Yariel Villanueva Work Phone: [facility] Start: 01-19-2024 End: 01-19-2024 ambulatory DO Yariel Villanueva Work Phone: [facility] Work Phone: Start: 01-19-2024 End: 01-19-2024 Office outpatient visit 15 minutes Amanda SMITH Work Phone: [facility] Comment on above: Acute right hip pain (Primary Dx); Sacroiliac joint pain; Chronic bilateral low back pain without sciatica Start: 01-19-2024 End: 01-19-2024 ambulatory AMANDA HEARD Not Available Start: 01-13-2024 End: 01-13-2024 Bamboo flowsolga Hoover MD Work Phone: [facility] Start: 01-13-2024 End: 01-13-2024 Evelin Hoover MD Work Phone: [facility] Start: 01-13-2024 End: 01-13-2024 Patient encounter procedure Catherine Hoover MD Work Phone: [facility] Comment on above: Bilateral impacted c erumen (Primary Dx) Start: 01-13-2024 End: 01-13-2024 ambulatory CATHERINE HOOVER Not Available Start: 12-29-2023 End: 12-29-2023 Office outpatient visit 25 minutes Brittney Vasquez MD Work Phone: Hematology/Oncology Comment on above: Prostate CA (HCC) (P rimary Dx) Start: 12-29-2023 End: 02-09-2024 ambulatory Lab/[place] Work Phone: Hematology/Oncology Comment on above: Prostate CA (HCC) (P rimary Dx); PSA elevation PSA elevation; Acquired hypothyroidism Start: 12-24-2023 End: 12-24-2023 Office outpatient visit 25 minutes David Jackson MD Work Phone: [facility] Comment on above: Sick sinus syndrome (Multi) (Primary Dx); Pacemaker; Paroxysmal atrial fibrillation (Multi); High risk medication use; Mixed hyperlipidemia; Essential hypertension; retirement current use of anticoagulant therapy; Mild coronary artery disease; LV dysfunction; BMI 26.0-26.9,adult; Stage 3a chronic kidney disease (Multi) Start: 12-24-2023 End: 12-24-2023 ambulatory [facility] Ambulatory Start: 12-03-2023 End: 12-03-2023 Refill Shaheen Diehl MD Work Phone: Hematology/Oncology Comment on above: Refill Request Start: 12-01-2023 End: 12-01-2023 ambulatory Lab/[place] Work Phone: Hematology/Oncology Comment on above: Type 2 diabetes rocky itus with stage 3b chronic kidney disease, with long-term current use of insulin (HCC); PSA elevation Start: 11-28-2023 End: 11-28-2023 Patient encounter procedure DO Yariel Villanueva Work Phone: [facility]Ul[facility]ound [facility] [place] Work Phone: Start: 11-28-2023 End: 11-28-2023 ambulatory DO Yariel Villanueva Work Phone: [facility] Work Phone: Start: 11-19-2023 End: 11-19-2023 Bamboo flowsheet Khoa Pittman DPM Work Phone: [facility] Start: 11-19-2023 End: 11-19-2023 Bamboo flowsheet Khoa Pittman DPM Work Phone: [facility] Start: 11-19-2023 End: 11-19-2023 Office outpatient new 45 minutes Khoa Pittman DPM Work Phone: [facility] Comment on above: Valgus deformity of both great toes (Primary Dx); Other specified peripheral vascular diseases (CMS/HCC); Neuropathy; Type II diabetes mellitus with neurological manifestations (CMS/HCC); Hallux rigidus of both feet Start: 11-19-2023 End: 11-19-2023 ambulatory KHOA PITTMAN Not Available Start: 11-14-2023 End: 11-14-2023 ambulatory YARIEL VILLANUEVA Facility:[facility] Start: 11-14-2023 End: 11-14-2023 Patient encounter procedure Arnold Handley APRN.CARDING SUPERVISOR Work Phone: Endocrinology Comment on above: Type 2 diabetes rocky itus with stage 3b chronic kidney disease, with long-term current use of insulin (HCC) (Primary Dx); Essential hypertension; Dyslipidemia; Acquired hypothyroidism Start: 10-16-2023 End: 10-16-2023 Patient encounter procedure Yariel Villanueva DO Work Phone: [facility] Comment on above: Medicare annual well ness visit, subsequent (Primary Dx); Screening for depression Start: 09-11-2023 Telephone encounter Arnold child APRN.CARDING SUPERVISOR Work Phone: Endocrinology Comment on above: Patient Question (La bs) Start: 09-11-2023 End: 09-11-2023 Patient encounter procedure Roland Gutierrez MD Work Phone: Ophthalmology Comment on above: Blurry vision (Prima ry Dx); Epiretinal membrane, bilateral; Type 2 diabetes mellitus without complication, with long-term current use of insulin (HCC); Pseudophakia of both eyes Start: 09-08-2023 End: 09-08-2023 ambulatory Lab/[place] Work Phone: Hematology/Oncology Comment on above: PSA elevation Start: 09-08-2023 End: 09-08-2023 Office outpatient visit 25 minutes Shaheen Diehl MD Work Phone: Hematology/Oncology Comment on above: Prostate CA (HCC) (P rimary Dx); PSA elevation Start: 09-08-2023 Telephone encounter Shaheen urrutia MD Work Phone: [facility] Comment on above: Results Start: 08-27-2023 End: 08-27-2023 Office outpatient visit 25 minutes Brandy FRANCE Work Phone: [facility] Comment on above: Venous stasis (Prima ry Dx); Neuropathy; 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 (CMS-HCC); Nonischemic cardiomyopathy ([facility]-HCC); Reactive depression Start: 08-15-2023 End: 08-15-2023 Telephone encounter Yariel Villanueva DO Work Phone: [facility] Start: 08-14-2023 End: 08-14-2023 Office outpatient visit 15 minutes Yariel Villanueva DO Work Phone: [facility] Comment on above: Upper respiratory tr act infection, unspecified type (Primary Dx); Diffuse large B-cell lymphoma, unspecified body region (CMS-HCC); Pulmonary emphysema, unspecified emphysema type (CMS-HCC); Secondary renal hyperparathyroidism (CMS-HCC); Overweight Start: 07-18-2023 Telephone encounter Arnold child PROCESS MANAGER.CARDING SUPERVISOR Work Phone: Endocrinology Start: 07-15-2023 Telephone encounter Arnold child PROCESS MANAGER.CARDING SUPERVISOR Work Phone: Endocrinology & Metabolic Comfort Comment on above: Insurance Authorizat ion Start: 07-11-2023 End: 07-11-2023 Patient encounter procedure Shayy Smith MD Work Phone: Radiation Oncology Comment on above: Malignant neoplasm o f prostate (HCC) (Primary Dx) Start: 07-07-2023 End: 07-07-2023 ambulatory Lab/[place] Work Phone: Hematology/Oncology Comment on above: PSA elevation (Prima ry Dx); Prostate CA (HCC) Start: 07-07-2023 End: 07-07-2023 Office outpatient visit 40 minutes Shaheen Diehl MD Work Phone: Hematology/Oncology Comment on above: PSA elevation (Prima ry Dx); Prostate CA (HCC) Start: 07-03-2023 End: 07-03-2023 Subsequent hospital visit by physician Arrival Time Radiology Work Phone: Radiology [facility] Comment on above: Prostate CA (HCC) [C 61] Start: 06-23-2023 Refill Arnold serrano PROCESS MANAGER.CARDING SUPERVISOR Work Phone: Endocrinology Comment on above: Refill Request Start: 06-04-2023 Refill Britney Ricks CMA [facility] Start: 05-30-2023 Telephone encounter Shaheen urrutia MD Work Phone: [facility] Comment on above: Nm Pet Request Start: 05-30-2023 End: 05-30-2023 Office outpatient visit 25 minutes Shaheen Diehl MD Work Phone: Hematology/Oncology Comment on above: Prostate CA (HCC) (P rimary Dx); PSA elevation Start: 05-16-2023 End: 05-16-2023 Patient encounter procedure Arnold Handley APRN.CARDING SUPERVISOR Work Phone: Endocrinology Comment on above: Type 2 diabetes rocky itus with stage 3b chronic kidney disease, with long-term current use of insulin (HCC) (Primary Dx); Essential hypertension; Dyslipidemia; Acquired hypothyroidism Start: 05-12-2023 End: 05-12-2023 ambulatory Lab/[place] Work Phone: Hematology/Oncology Comment on above: Type 2 diabetes rocky itus with stage 3b chronic kidney disease, with long-term current use of insulin (HCC); Dyslipidemia; Acquired hypothyroidism; Prostate CA (HCC) Start: 05-01-2023 Telephone encounter Shaheen urrutia MD Work Phone: Hematology/Oncology Comment on above: Lab Orders Start: 02-06-2023 End: 02-06-2023 ambulatory DO Yariel Bentleyyelitza Work Phone: [facility] Work Phone: Start: 02-06-2023 End: 02-06-2023 Patient encounter procedure DO Yariel Bentleyyelitza Work Phone: [facility]-Pacemaker Check Start: 01-03-2023 End: 01-03-2023 Patient encounter procedure Arnold Handley APRN.[facility] Work Phone: Endocrinology Comment on above: Type 2 diabetes rocky itus with stage 3b chronic kidney disease, with long-term current use of insulin (HCC) (Primary Dx); Essential hypertension; Dyslipidemia; Acquired hypothyroidism Start: 12-09-2022 Refill Shaheen jolly MD Work Phone: Hematology/Oncology Comment on above: Refill Request Start: 12-03-2022 Refill Shaheen jolly MD Work Phone: Hematology/Oncology Comment on above: Opened In Error (Ashlie id prescription at pharmacy) Start: 11-13-2022 End: 11-13-2022 Office outpatient visit 15 minutes Shaheen Diehl MD Work Phone: Hematology/Oncology Comment on above: Prostate CA (HCC) (P rimary Dx); Lower urinary tract symptoms (LUTS) Start: 11-05-2022 Telephone encounter Shaheen urrutia MD Work Phone: Hematology/Oncology Comment on above: Lab Orders Start: 10-22-2022 End: 10-22-2022 ambulatory DO Yariel Bentleylong Work Phone: [facility] Work Phone: Start: 10-22-2022 End: 10-22-2022 Patient encounter procedure DO Yariel Bentleylong Work Phone: [facility] [place] Work Phone: Start: 10-18-2022 Office outpatient vi sit 25 minutes Yariel Limang Work Phone: [facility]-[place] 250 DO Work Phone: Start: 10-18-2022 Patient encounter procedure De celio [place] Mcdavidng [facility] Work Phone: Start: 08-20-2022 End: 08-21-[address] CHEPE BENTLEY Facility:[facility] Start: 08-14-2022 End: 08-14-2022 Office outpatient visit 25 minutes Shaheen Diehl MD Work Phone: Hematology/Oncology Comment on above: Prostate CA (HCC) (P rimary Dx); PSA elevation; History of diffuse large B-cell lymphoma Start: 08-08-[address] Yariel Villanueva Facility:[id number] Start: 08-08-2022 End: 08-08-2022 Patient encounter procedure DO Yariel Mcyelitza Work Phone: [facility]-Pacemaker Check Start: 07-18-2022 Rx Renewal Yariel Lima ng Work Phone[facility] Work Phone: Start: 07-15-2022 End: 07-16-[address] CHEPE BENTLEY Facility:[facility] Start: 07-05-2022 Telephone encounter Arnold Rowe rshall PROCESS MANAGER.CARDING SUPERVISOR Work Phone: Endocrinology Comment on above: Forms Start: 06-25-2022 Refill Arnold serrano PROCESS MANAGER.CARDING SUPERVISOR Work Phone: Endocrinology Comment on above: Refill Request Start: 06-14-2022 Rx Renewal Yariel lim Work Phone: [facility] 250 DO Work Phone: Start: 06-05-2022 Refill Shaheen jolly MD Work Phone: Hematology/Oncology Comment on above: Refill Request Start: 06-03-2022 Telephone encounter Arnold child PROCESS MANAGER.CARDING SUPERVISOR Work Phone: Endocrinology Comment on above: Patient Update Start: 05-17-2022 End: 05-17-2022 Patient encounter procedure Selivn Pat MD Work Phone: Urology Comment on above: Nocturia (Primary Dx ); Prostate CA (HCC); Feeling of incomplete bladder emptying Start: 05-10-2022 Telephone encounter Shaheen urrutia MD Work Phone: [facility] Comment on above: Results Start: 05-10-2022 End: 05-10-2022 ambulatory Lab/[place] Work Phone: Hematology/Oncology Comment on above: Prostate CA (HCC) (P rimary Dx); Lower urinary tract symptoms (LUTS); PSA elevation Start: 05-10-2022 End: 05-10-2022 Office outpatient visit 25 minutes Shaheen Diehl MD Work Phone: Hematology/Oncology Comment on above: Prostate CA (HCC) (P rimary Dx); PSA elevation; Lower urinary tract symptoms (LUTS) Start: 05-09-2022 End: 05-09-2022 Patient encounter procedure Roland Gutierrez MD Work Phone: Ophthalmology Comment on above: Type 2 diabetes rocky itus without complication, with long-term current use of insulin (HCC) (Primary Dx); Epiretinal membrane, bilateral; Pseudophakia of both eyes; Myopia with astigmatism and presbyopia, right Start: 04-16-2022 Office outpatient vi sit 25 minutes Yariel Bentleydavidraphael Work Phone: [facility] DO Work Phone: Start: 04-16-2022 Patient encounter procedure De celio Villanueva Work Phone: [facility] 250 DO Work Phone: Start: 04-16-[address] 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, with long-term current use of insulin (HCC) (Primary Dx); Essential hypertension; Dyslipidemia; Acquired hypothyroidism Start: 04-10-2022 End: 04-10-2022 ambulatory Lab/[place] Work Phone: Hematology/Oncology Comment on above: Type 2 diabetes rocky 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, with long-term current use of insulin (HCC); Dyslipidemia; Acquired hypothyroidism Start: 03-22-2022 End: 03-26-2022 Evaluation and management of inpatient DO Yariel Villanueva Work Phone: [facility] Work Phone: Start: 03-20-2022 End: 03-22-2022 Evaluation and management of inpatient DO Yariel Villanueva Work Phone: [facility] Work Phone: Start: 03-20-[address] [id number] Start: 03-18-2022 Refill Arnold serrano APRN.CNP Work Phone: Endocrinology Comment on above: Refill Request Start: 02-25-2022 Refill Arnold serrano APRN.CARDING SUPERVISOR Work Phone: Endocrinology Comment on above: Refill Request Start: 02-19-2022 Office outpatient vi sit 25 minutes Yariel [facility]ueva [facility] DO Work Phone: Start: 02-19-2022 Patient encounter procedure Riveradavidraphael Work Phone: [facility] DO Work Phone: Start: 02-19-[address] [facility] Start: 02-08-2022 End: 02-08-2022 ambulatory Lab/[place] Work Phone: Hematology/Oncology Comment on above: PSA elevation (Prima ry Dx); Prostate CA (HCC) Start: 02-04-[address] Yariel Villanueva Facility:[id number] Start: 02-04-2022 End: 02-04-2022 Patient encounter procedure DO Yarieljason Bentleyyelitza Work Phone: [facility]-Pacemaker Check Start: 01-25-2022 End: 01-25-2022 ambulatory Shaheen Diehl MD Work Phone: Hematology/Oncology Comment on above: Prostate CA (HCC) (P rimary Dx); Lower urinary tract symptoms (LUTS) Start: 01-25-2022 End: 01-25-2022 Patient encounter procedure Shaheen Diehl MD Work Phone: [employer] Start: 01-23-2022 End: 01-23-2022 Subsequent hospital visit by physician Arrival Time Radiology Work Phone: Radiology [facility] Comment on above: Lower urinary tract symptoms (LUTS) [R39.9] Start: 01-22-2022 Rx Renewal Yariel Lima raphael Work Phone: [facility] DO Work Phone: Start: 01-11-2022 End: 01-11-2022 Patient encounter procedure Shaheen Diehl MD Work Phone: [facility] Start: 01-11-2022 End: 01-11-2022 ambulatory Lab/[place] Work Phone: Hematology/Oncology Comment on above: Lower urinary tract symptoms (LUTS); Prostate CA (HCC); 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) Lower urinary tract symptoms (LUTS) (Primary Dx); Prostate CA (HCC); 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); Diffuse large B-cell lymphoma, unspecified body region (HCC) Start: 01-04-2022 Rx Renewal Yariel lim Work Phone: [facility] [employer] 250 DO Work Phone: Start: 2021 Rx Renewal [facility]ariel lim [facility] DO Work Phone: Start: 11-09-2021 End: 11-09-2021 Patient encounter procedure Arnold Handley APRN.CARDING SUPERVISOR Work Phone: Endocrinology Comment on above: Type 2 diabetes rocky 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, with long-term current use of insulin (HCC) (Primary Dx); Essential hypertension; Dyslipidemia; Acquired hypothyroidism Start: 09-06-2021 End: 09-06-2021 Patient encounter procedure DO Yariel Villanueva Work Phone: [facility]-CT Scan [facility] [place] Start: 08-11-2021 End: 08-11-2021 Emergency department patient visit DO Yariel Villanueva Work Phone: [facility]-Emergency Room Start: 08-06-2021 Refill Arnold serrano APRN.CARDING SUPERVISOR Work Phone: Endocrinology Comment on above: Refill Request Start: 08-01-2021 End: 08-01-2021 Patient encounter procedure DO Yariel Villanueva Work Phone: [facility]-Pacemaker Check Start: 07-17-2021 End: 07-17-2021 Patient encounter procedure Arnold Handley APRN.CARDING SUPERVISOR Work Phone: Endocrinology Comment on above: Type 2 diabetes rocky 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, with long-term current use of insulin (HCC) (Primary Dx); Essential hypertension; Dyslipidemia; Acquired hypothyroidism Start: 05-16-2021 Office outpatient vi sit 25 minutes Yariel Villanueva Work Phone: [facility] [employer] 250 DO Work Phone: Start: 01-22-2021 Rx Renewal Yariel Lima ng Work Phone: [facility] 250 DO Work Phone: Start: 01-18-2021 Rx Renewal Yariel Lima ng Work Phone: [facility] 600 DO Work Phone: Start: 03-31-2018 Patient encounter procedure SEAN HOLDEN Facility:[id number] Start: 10-15-2017 Patient encounter procedure SEAN Farooq [facility] Facility:1532 Start: 08-05-2017 Patient encounter procedure SEAN Farooq [facility] Facility:[id number] Start: 06-12-2017 Patient encounter procedure SEAN HOLDEN Facility:[id number] Procedures Date Procedure Procedure Detail Performing Clinician Start: 09-27-2024 Hemoglobin A1c/Hemoglobin.total in Blood Arnold Handley APRN.CARDING SUPERVISOR Work Phone: Start: 09-27-2024 Follow-up visit Follow Up ARNOLD HANDLEY Start: 09-16-2024 Computerized ophthal luis manuel imaging retina Roland Gutierrez MD Work Phone: Start: 07-08-2024 [facility] [employer] [facility] Pr ovider Start: 07-08-2024 Hemoglobin A1c/Hemoglobin.total in Blood Arnold Handley APRN.CARDING SUPERVISOR Work Phone: Start: 06-29-2024 Blood count complete auto&auto difrntl wbc Shaheen Diehl MD Work Phone: Start: 04-20-2024 Blood count complete auto&auto difrntl wbc Brittney Vennepureddy MD Work Phone: Start: 03-03-2024 CT of lumbar spine w ithout contrast [employer] Work Phone: Start: 03-02-2024 [employer] [facility] Pr ovider Start: 03-02-2024 Hemoglobin A1c/Hemoglobin.total in Blood Arnold Handley APRN.CARDING SUPERVISOR Work Phone: Start: 01-19-2024 Plain X-ray of sacro iliac joint DO [employer] Work Phone: Start: 01-19-2024 X-ray of lumbar spin e, six views including bending views DO [employer] Work Phone: Start: 12-29-2023 Blood count complete auto&auto difrntl wbc Shaheen Diehl MD Work Phone: Start: 12-01-2023 Blood count complete auto&auto difrntl wbc Shaheen Diehl MD Work Phone: Start: 11-28-2023 Pulse volume recorde r pneumoplethysmography DO [employer] Work Phone: Start: 11-14-2023 Gluc bld gluc mntr d ev cleared fda spec home use [facility] Provider Start: 11-14-2023 Hemoglobin A1c/Hemoglobin.total in Blood Arnold Handley APRN.CARDING SUPERVISOR Work Phone: Start: 10-16-2023 Adult depression scr eening assessment [employer] Work Phone: Start: 09-11-2023 Computerized ophthal luis manuel imaging retina Roland Gutierrez MD Work Phone: Start: 09-08-2023 Blood count complete auto&auto difrntl wbc Shaheen Diehl MD Work Phone: Start: 08-14-2023 Adult depression scr eening assessment [employer] Work Phone: Start: 07-03-[address] atten uation skull base mid-thigh Shaheen Diehl MD Work Phone: Start: 05-12-2023 Blood count complete auto&auto difrntl wbc Shaheen Diehl MD Work Phone: Start: 05-12-2023 Lipid panel Arnold child PROCESS MANAGER.CARDING SUPERVISOR Work Phone: Start: 05-12-2023 Thyrotropin [Units/v olume] in Serum or Plasma David Jackson MD Work Phone: Start: 03-05-2023 Adult depression scr eening melvin Ricks [facility] Start: 01-03-2023 Hemoglobin A1c/Hemoglobin.total in Blood Arnold Handley PROCESS MANAGER.CARDING SUPERVISOR Work Phone: Start: 05-10-2022 Blood count complete auto&auto difrntl wbc Shaheen Diehl MD Work Phone: Start: 05-09-2022 Computerized ophthal luis manuel imaging retina Roland Gutierrez MD Work Phone: Start: 04-10-2022 Comprehensive metabolic panel Arnold Handley PROCESS MANAGER.CARDING SUPERVISOR Work Phone: Start: 03-25-2022 CT of head without contrast DO [employer] Work Phone: Start: 03-22-2022 CT of head without contrast DO [employer] Work Phone: Start: 03-21-2022 CL FFR/IFR Initial Vessel DO [employer] Work Phone: Start: 03-21-2022 CL LHC & COR Angio DO D [employer]es[employer] Work Phone: Start: 03-21-2022 DO [employer] Work Phone: Start: 03-20-2022 Plain chest X-ray DO De nnis CreaWor Work Phone: Start: 01-23-2022 Ct abdomen & pelvis w/contrast material Shaheen Diehl MD Work Phone: Start: 01-23-2022 Ct thorax w/contrast material Shaheen Diehl MD Work Phone: Start: 01-11-2022 Blood count complete auto&auto difrntl wbc Shaheen Diehl MD Work Phone: Start: 11-09-2021 Hemoglobin A1c/Hemoglobin.total in Blood Arnold Handley ALTA Work Phone: Start: 09-06-2021 CT of chest without contrast DO Yariel Villanueva Work Phone: Start: 08-11-2021 Plain chest X-ray DO Tariq Work Phone: Colonoscopy Yariel washing[place] Work Phone: Comment on above: Pankaj low; Insertion of pacemak er pulse generator Yariel Villanueva Work Phone: Myringotomy - With V entilating Tube Insertion Yariel Villanueva Work Phone: Operation on the ear Yariel Villanueva Work Phone: Procedure on prostate Yariel Villanueva Work Phone: Comment on above: seed implantation; Surgical procedure Yariel Villanueva Work Phone: Comment on above: Chemotherapy IV - Po rtable Port; Tonsillectomy Yariel lim Work Phone: Plan of Treatment Date Care Activity Detail Author Start: 12-09-2030 DTaP,Tdap and Td Vaccines (3 - Tdap) DTaP,Tdap and Td Vaccines (3 - Tdap) [facility] Start: 12-09-2030 DTaP,Tdap and Td Vaccines (4 - Td or Tdap) DTaP,Tdap and Td Vaccines (4 - Td or Tdap) [facility] Start: 12-09-2030 DTaP/Tdap/Td Vaccines (4 - Td or Tdap) DTaP/Tdap/Td Vaccines (4 - Td or Tdap) [facility] Start: 12-09-2030 Urine microalbumin profile [facility] Start: 10-01-2025 End: 03-10-2026 OCT MACULA CIRRUS OU (BOTH EYES) OCT MACULA CIRRUS OU (BOTH EYES) [facility] Imaging Routine Epiretinal membrane, bilateral Type 2 diabetes mellitus without complication, with long-term current use of insulin (HCC) Pseudophakia of both eyes Expected: 10/01/2025, Expires: 03/10/2026 [facility] Work Phone: Comment on above: Expected: 10/01/2025, Expires: Start: 09-22-2025 End: 09-22-2025 Patient encounter procedure 09/22/2025 10:15 AM EDT Office Visit [facility]mology [address] [place] [address] Roland Gutierrez MD [address] [place] [address] [facility] [address] [address] *YEARLY, DFE/OCT Ophthalmology Comment on above: *YEARLY, DFE/OCT Start: 09-16-2025 Glaucoma screening Dilated Retinal Exam [facility] Start: 05-12-2025 End: 05-12-2025 Patient encounter procedure 05/12/2025 1:40 PM EST Office Visit [facility] [address] [address] David Jackson MD 703 [facility] 2, [address] [place] [address] [facility] Start: 03-30-2025 Hemoglobin A1c measurement HbA1C [facility] Start: 01-28-2025 End: 01-28-2025 Patient encounter procedure 01/28/2025 10:30 AM EST Office Visit Endocrinology [address] [place] [address] Arnold Handley, PROCESS MANAGER.CARDING SUPERVISOR [address] [place] [address] 4 month follow up DM Endocrinology Comment on above: 4 month follow up DM Start: 01-12-2025 End: 01-12-2025 Patient encounter procedure 01/12/2025 9:40 AM EDT Office Visit [facility] [address] [facility] [address] [place] [address] Catherine Hoover MD 112 [facility] [address] [place] [address] [facility] Start: 01-07-2025 Hemoglobin A1c measurement HbA1C [facility] Start: 11-30-2024 Hepatitis B screening Urine Albumin:Creatinine Ratio [facility] Start: 11-30-2024 Urine screening for protein Diabetes: Urine Protein Screening [facility] Start: 11-22-2024 Influenza vaccination [facility] Start: 11-08-2024 End: 11-08-2024 Patient encounter procedure 11/08/2024 3:45 PM EDT Office Visit Endocrinology [address] [place] [address] Arnold Handley, PROCESS MANAGER.CARDING SUPERVISOR [address] [facility] [place] [address] Return in about 4 months (around 11/07/2024). Endocrinology Comment on above: Return in about 4 months (around 11/08/19). Start: 10-19-2024 End: 10-19-2024 Patient encounter procedure 10/19/2024 1:00 PM EDT Office Visit [facility] [address] [place] [address] [facility] Start: 10-16-2024 Medicare Annual Wellness Visit Medicare Annual Wellness Visit (AWV) [facility] Start: 10-15-2024 Adult BMI Screening Adult BMI Screening [facility] Start: 10-15-2024 Depression Screening Depression Screening [facility] Start: 10-15-2024 Fall Risk Screening Fall Risk Screening [facility] Start: 10-15-2024 Medicare Annual Wellness Visit Medicare Annual Wellness Visit [facility] Start: 10-12-2024 End: 10-12-2024 Patient encounter procedure 10/12/2024 2:00 PM EDT Office Visit [facility] [address] [facility] [place] [address] Lior Montanez MD [facility] [place], [place] [id number] Diagnostics, [facility] [address] [address] [address] Tarik Valdez. Ophthalmology Comment on above: Dr. Tarik Valdez. Start: 10-07-2024 Hemoglobin A1c measurement Diabetes: Hemoglobin A1C [facility] Start: 10-06-2024 End: 10-06-2024 Follow-up encounter 10/06/2024 2:20 PM EDT Visit (SP) Office Hematology/Oncology [address] [facility] [place] [address] Shaheen Diehl MD [address] [facility] [place] [address] 3 month follow up with lab Hematology/Oncology Comment on above: 3 month follow up with lab Start: 10-06-2024 End: 01-05-2025 Comprehensive metabolic 2000 panel - Serum or Plasma COMPREHENSIVE METABOLIC PANEL Lab Routine Type 2 diabetes mellitus with stage 3b chronic kidney disease, with long-term current use of insulin (HCC) Expected: 10/06/2024, Expires: 01/05/2025 [facility] Work Phone: Comment on above: Expected: 10/06/2024, Expires: Start: 10-06-2024 End: 01-05-2025 Hemoglobin A1c in Blood HEMOGLOBIN A1C Lab Routine Type 2 diabetes mellitus with stage 3b chronic kidney disease, with long-term current use of insulin (HCC) Expected: 10/06/2024, Expires: 01/05/2025 [facility] Comment on above: Expected: 10/06/2024, Expires: Start: 10-06-2024 End: 01-05-2025 Lipid 1996 panel - Serum or Plasma LIPID PANEL, FASTING Lab Routine Type 2 diabetes mellitus with stage 3b chronic kidney disease, with long-term current use of insulin (HCC) Expected: 10/06/2024, Expires: 01/05/2025 [facility] Comment on above: Expected: 10/06/2024, Expires: Start: 10-06-2024 End: 01-05-2025 Microalbumin/Creatinine [Mass Ratio] in Urine ALBUMIN/CREATININE RATIO, URINE Lab Routine Type 2 diabetes mellitus with stage 3b chronic kidney disease, with long-term current use of insulin (HCC) Expected: 10/06/2024, Expires: 01/05/2025 [facility] Comment on above: Expected: 10/06/2024, Expires: Start: 10-06-2024 End: 10-06-2024 Patient encounter procedure 10/06/2024 2:00 PM EDT Office Visit [facility] [address] [place] [address] [place] [address] 3 month follow up with lab [facility] Comment on above: 3 month follow up with lab Start: 10-06-2024 End: 01-05-2025 Thyrotropin [Units/volume] in Serum or Plasma THYROID STIMULATING HORMONE Lab Routine Type 2 diabetes mellitus with stage 3b chronic kidney disease, with long-term current use of insulin (HCC) Expected: 10/06/2024, Expires: 01/05/2025 [facility] Comment on above: Expected: 10/06/2024, Expires: Start: 09-29-2024 End: 12-29-2024 CBC W Auto Differential panel - Blood COMPLETE BLOOD COUNT AND DIFFERENTIAL Lab Routine Prostate CA (HCC) 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, with long-term current use of insulin (HCC) Expected: 09/29/2024, Expires: 12/29/2024 [facility] Work Phone: Comment on above: Expected: 09/29/2024, Expires: Start: 09-29-2024 End: 12-29-2024 Comprehensive metabolic 2000 panel - Serum or Plasma COMPREHENSIVE METABOLIC PANEL Lab Routine Prostate CA (HCC) 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, with long-term current use of insulin (HCC) Expected: 09/29/2024, Expires: 12/29/2024 [facility] Comment on above: Expected: 09/29/2024, Expires: Start: 09-29-2024 End: 12-29-2024 Prostate specific Ag [Mass/volume] in Serum or Plasma PROSTATE-SPECIFIC ANTIGEN DIAGNOSTIC Lab Routine Prostate CA (HCC) 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, with long-term current use of insulin (HCC) Expected: 09/29/2024, Expires: 12/29/2024 [facility] Comment on above: Expected: 09/29/2024, Expires: Start: 09-28-2024 End: 09-28-2024 Patient encounter procedure 09/28/2024 1:20 PM EDT Office Visit [facility] 703 [facility] [address] [place] [id number] David Jackson MD 703 [facility] 2, [address] [place] [address] [facility] Start: 09-27-2024 End: 09-27-2024 Patient encounter procedure 09/27/2024 1:00 PM EDT Office Visit Endocrinology [address] [place] [address] Arnold Handley APRN.CARDING SUPERVISOR [address] [facility] [place] [address] Return in about 4 months (around 11/07/2024). Endocrinology Comment on above: Return in about 4 months (around 11/08/19 25). Start: 09-25-2024 End: 03-04-2025 OCT MACULA CIRRUS OU (BOTH EYES) OCT MACULA CIRRUS OU (BOTH EYES) [facility] Imaging Routine Blurry vision Epiretinal membrane, bilateral Type 2 diabetes mellitus without complication, with long-term current use of insulin (HCC) Pseudophakia of both eyes Expected: 09/25/2024, Expires: 03/04/2025 [facility] Work Phone: Comment on above: Expected: 09/25/2024, Expires: Start: 09-16-2024 End: 09-16-2024 Patient encounter procedure Ophthalmology Comment on above: Return for Dr. Montanez for cornea and M rx, 1 year DFE OCT OU with retina . *YEARLY, HX PPV, DFE /OCT Start: 09-10-2024 Glaucoma screening Dilated Retinal Exam [facility] Start: 08-31-2024 Hemoglobin A1c measurement HbA1C [facility] Start: 08-26-2024 Adult BMI Screening Adult BMI Screening [facility] Start: 08-26-2024 Fall Risk Screening Fall Risk Screening [facility] Start: 08-13-2024 Adult BMI Screening Adult BMI Screening [facility] Start: 08-13-2024 Depression Screening Depression Screening [facility] Start: 08-13-2024 Tobacco Screening Tobacco Screening [facility] Start: 07-14-2024 End: 07-14-2024 Patient encounter procedure 07/14/2024 10:00 AM EDT Office Visit [facility] 112 [facility] [address] [place] [address] Catherine Hoover MD 112 [facility] [address] [place] [address] Arrived [facility] Comment on above: Arrived Start: 07-08-2024 End: 07-08-2024 Patient encounter procedure 07/08/2024 1:30 PM EDT Office Visit Endocrinology [address] [place] [id number] Arnold Handley, JOSE.CARDING SUPERVISOR [address] [place], [place] [id number] *[facility]around 07[facility]01/2024[facility] Endocrinology Comment on above: *[facility]/s [facility] hospital the [facility] prior. [facility] (around 07/01/2024). Start: 07-01-2024 End: 07-01-2024 Patient encounter procedure 07/01/2024 1:30 PM EDT Office Visit Endocrinology [address] [place] [address] Arnold Handley, PROCESS MANAGER.CARDING SUPERVISOR [address] [facility] [address], [place] [id number] Return in about 4 months (around 07/01/2024). Endocrinology Comment on above: Return in about 4 months (around 07/02/19 25). Start: 06-29-2024 End: 06-29-2024 Follow-up encounter 06/29/2024 11:15 AM EDT [facility] Hematology/Oncology [address] [place] [address] [place] [address] 6 month follow up lab port draw Lupron inj Hematology/Oncology Comment on above: 6 month follow up lab port draw Lupron i nj Start: 06-29-2024 End: 06-29-2024 Follow-up encounter Hematology/Oncology Comment on above: 9 week follow up lab port draw Lupron in j 6 month follow up la b port draw Lupron inj Start: 06-21-2024 End: 06-21-2024 Follow-up encounter Hematology/Oncology Comment on above: 9 week follow up lab port draw Lupron in j 6 month follow up la b port draw Lupron inj Start: 06-18-2024 End: 04-20-2025 CBC W Auto Differential panel - Blood COMPLETE BLOOD COUNT AND DIFFERENTIAL Lab Routine Type 2 diabetes mellitus with stage 3b chronic kidney disease, with long-term current use of insulin (HCC) Prostate CA (HCC) History of diffuse large B-cell lymphoma Expected: 06/18/2024 (Approximate), Expires: 04/20/2025 [facility] Comment on above: Expected: 06/18/2024 (Approximate), Expi res: 04/20/2025 Start: 06-18-2024 End: 04-20-2025 Comprehensive metabolic 2000 panel - Serum or Plasma COMPREHENSIVE METABOLIC PANEL Lab Routine Type 2 diabetes mellitus with stage 3b chronic kidney disease, with long-term current use of insulin (HCC) Prostate CA (HCC) History of diffuse large B-cell lymphoma Expected: 06/18/2024 (Approximate), Expires: 04/20/2025 [facility] Comment on above: Expected: 06/18/2024 (Approximate), Expi res: 04/20/2025 Start: 06-18-2024 End: 09-17-2024 Prostate specific Ag [Mass/volume] in Serum or Plasma PROSTATE-SPECIFIC ANTIGEN DIAGNOSTIC Lab Routine Type 2 diabetes mellitus with stage 3b chronic kidney disease, with long-term current use of insulin (HCC) Prostate CA (HCC) History of diffuse large B-cell lymphoma Expected: 06/18/2024 (Approximate), Expires: 09/17/2024 [facility] Work Phone: Comment on above: Expected: 06/18/2024 (Approximate), Expi res: 09/17/2024 Start: 05-16-2024 Hemoglobin A1c measurement HbA1C [facility] Start: 05-12-2024 Hepatitis B screening Urine Albumin:Creatinine Ratio [facility] Start: 05-12-2024 Hepatitis B surface antibody level LDL Cholesterol [facility] Start: 05-12-2024 Thyroid stimulating hormone measurement TSH Level [facility] Start: 04-08-2024 End: 04-08-2024 Follow-up encounter Hematology/Oncology Comment on above: 16 week follow up lab port draw Lupron i nj 3 month follow up la b port draw Lupron inj Start: 03-30-2024 End: 06-29-2024 CBC W Auto Differential panel - Blood COMPLETE BLOOD COUNT AND DIFFERENTIAL Lab Routine Prostate CA (HCC) Expected: 03/30/2024, Expires: 06/29/2024 [facility] Work Phone: Comment on above: Expected: 03/30/2024, Expires: Start: 03-30-2024 End: 06-29-2024 Cobalamin (Vitamin B12) [Mass/volume] in Serum or Plasma VITAMIN B12 Lab Routine Prostate CA (HCC) Expected: 03/30/2024, Expires: 06/29/2024 [facility] Comment on above: Expected: 03/30/2024, Expires: Start: 03-30-2024 End: 06-29-2024 Comprehensive metabolic 2000 panel - Serum or Plasma COMPREHENSIVE METABOLIC PANEL Lab Routine Prostate CA (HCC) Expected: 03/30/2024, Expires: 06/29/2024 [facility] Comment on above: Expected: 03/30/2024, Expires: Start: 03-30-2024 End: 06-29-2024 Ferritin [Mass/volume] in Serum or Plasma FERRITIN Lab Routine Prostate CA (HCC) Expected: 03/30/2024, Expires: 06/29/2024 [facility] Comment on above: Expected: 03/30/2024, Expires: Start: 03-30-2024 End: 06-29-2024 Folate [Mass/volume] in Serum or Plasma FOLATE, SERUM Lab Routine Prostate CA (HCC) Expected: 03/30/2024, Expires: 06/29/2024 [facility] Comment on above: Expected: 03/30/2024, Expires: Start: 03-30-2024 End: 06-29-2024 Iron and Iron binding capacity panel - Serum or Plasma IRON AND TIBC Lab Routine Prostate CA (HCC) Expected: 03/30/2024, Expires: 06/29/2024 [facility] Comment on above: Expected: 03/30/2024, Expires: Start: 03-30-2024 End: 06-29-2024 Prostate specific Ag [Mass/volume] in Serum or Plasma PROSTATE-SPECIFIC ANTIGEN DIAGNOSTIC Lab Routine Prostate CA (HCC) Expected: 03/30/2024, Expires: 06/29/2024 [facility] Comment on above: Expected: 03/30/2024, Expires: Start: 03-29-2024 End: 03-29-2024 Follow-up encounter Hematology/Oncology Comment on above: 16 week follow up lab port draw Lupron i nj 3 month follow up la b port draw Lupron inj Start: 03-24-2024 Advance Directive Discussion Advance Directive Discussion [facility] Start: 03-15-2024 End: 03-15-2024 Patient encounter procedure 03/15/2024 2:00 PM EST Office Visit [facility] [address] [facility] [place] [address] Arnold Handley, PROCESS MANAGER.CARDING SUPERVISOR [address] [facility] [address] Return in about 4 months (around 03/15/2024). Endocrinology Comment on above: Return in about 4 months (around 024). Start: 03-10-2024 End: 03-10-2024 ambulatory [facility] Comment on above: Arrived Start: 03-05-2024 Adult BMI Screening Adult BMI Screening [facility] Start: 03-05-2024 Depression Screening Depression Screening [facility] Start: 03-05-2024 Fall Risk Screening Fall Risk Screening [facility] Start: 03-05-2024 Tobacco Screening Tobacco Screening [facility] Start: 03-03-2024 End: 03-03-2024 ambulatory 03/03/2024 1:30 PM EST Treatment [facility] [address] [place] [address] Elías Franz, PT [address] [place] [address] [facility] Start: 03-02-2024 End: 03-02-2024 Patient encounter procedure 03/02/2024 1:30 PM EST Office Visit Endocrinology [address] [place] [address] Arnold Handley, PROCESS MANAGER.CARDING SUPERVISOR [address] [facility] [place] [address] f/u diabetes Endocrinology Comment on above: f/u diabetes Start: 03-01-2024 End: 03-01-2024 ambulatory 03/01/2024 1:00 PM EST Evaluation [facility] [address] [place] [address] Elías Franz, PT [address] [place] [address] Arrived [facility] Comment on above: Arrived Start: 02-14-2024 Hemoglobin A1c measurement Diabetes: Hemoglobin A1C [facility] Start: 01-19-2024 End: 01-18-2025 XR Lumbar spine Views W flexion and W extension XR lumbar spine 4+ views w flexion extension Imaging Routine Chronic bilateral low back pain without sciatica Expected: 01/19/2024, Expires: 01/18/2025 [facility] Work Phone: Comment on above: Expected: 01/19/2024, Expires: Start: 01-19-2024 End: 01-18-2025 XR Sacroiliac Joint 1 or 2 Views XR sacroiliac joints 1 or 2 views Imaging Routine Sacroiliac joint pain Expected: 01/19/2024 (Approximate), Expires: 01/18/2025 [facility] Comment on above: Expected: 01/19/2024 (Approximate), Expi res: 01/18/2025 Start: 01-19-2024 End: 01-19-2024 Patient encounter procedure [facility] Comment on above: Acute right hip pain (Primary Dx) Start: 01-13-2024 End: 01-13-2024 Patient encounter procedure 01/13/2024 10:20 AM EDT Office Visit [facility] 112 [facility] [address] [place] [address] Catherine Hoover MD 112 [facility] [address] [place] [address] Arrived [facility] Comment on above: Arrived Start: 12-29-2023 End: 12-29-2023 Follow-up encounter Hematology/Oncology Comment on above: 16 week follow up lab port draw Ciara slater Start: 12-01-2023 End: 12-01-2023 ambulatory 12/01/2023 2:00 PM EDT Infusion Center Hematology/Oncology [address] [place] [address] [place] [address] 12 week port flush Hematology/Oncology Comment on above: 12 week port flush Start: 11-27-2023 End: 11-27-2023 Patient encounter procedure 11/27/2023 2:15 PM EDT Office Visit [facility] Ophthalmology [address] [place] [id number] Lior Montanez MD [address] [facility] [place] [address] Montanez for cornea and Mrx Ophthalmology Comment on above: Return for Dr. Montanez for cornea and M rx Start: 11-23-2023 Covid-19 Vaccine ( season) Covid-19 Vaccine ( season) [facility] Start: 11-23-2023 Covid-19 Vaccine () Covid-19 Vaccine () [facility] Start: 11-23-2023 COVID-19 Vaccine () COVID-19 Vaccine () [facility] Start: 11-23-2023 Influenza vaccination [facility] Start: 11-19-2023 End: 11-19-2023 Patient encounter procedure 11/19/2023 10:00 AM EDT Office Visit [facility] [address] [place] [id number] Khoa Pittman DPM [address] [place] [address] Arrived [facility] Comment on above: Arrived Start: 11-14-2023 End: 02-13-2024 ALBUMIN/CREAT RATIO RND UR ALBUMIN/CREAT RATIO RND UR Lab Routine Type 2 diabetes mellitus with stage 3b chronic kidney disease, with long-term current use of insulin (HCC) Expected: 11/14/2023, Expires: 02/13/2024 [facility] Work Phone: Comment on above: Expected: 11/14/2023, Expires: Start: 11-14-2023 End: 02-13-2024 Comprehensive metabolic 2000 panel - Serum or Plasma COMP METABOLIC PANEL Lab Routine Type 2 diabetes mellitus with stage 3b chronic kidney disease, with long-term current use of insulin (HCC) Expected: 11/14/2023, Expires: 02/13/2024 [facility] Work Phone: Comment on above: Expected: 11/14/2023, Expires: Start: 11-14-2023 End: 02-13-2024 Hemoglobin A1c in Blood HGB A1C Lab Routine Type 2 diabetes mellitus with stage 3b chronic kidney disease, with long-term current use of insulin (HCC) Expected: 11/14/2023, Expires: 02/13/2024 [facility] Work Phone: Comment on above: Expected: 11/14/2023, Expires: Start: 11-14-2023 End: 02-13-2024 Lipid 1996 panel - Serum or Plasma LIPID PANEL BASIC Lab Routine Dyslipidemia Expected: 11/14/2023, Expires: 02/13/2024 [facility] Work Phone: Comment on above: Expected: 11/14/2023, Expires: Start: 11-14-2023 End: 11-14-2023 Patient encounter procedure 11/14/2023 2:00 PM EDT Office Visit Endocrinology [address] [place] [address] Arnold Handley APRN.CARDING SUPERVISOR [address] [place] [address] Return in about 6 months (around 11/14/2023). Endocrinology Comment on above: Return in about 6 months (around 11/14/19 24). Start: 11-14-2023 End: 02-13-2024 Thyrotropin [Units/volume] in Serum or Plasma TSH BLD Lab Routine Acquired hypothyroidism Expected: 11/14/2023, Expires: 02/13/2024 [facility] Work Phone: Comment on above: Expected: 11/14/2023, Expires: Start: 09-11-2023 End: 09-11-2023 Patient encounter procedure 09/11/2023 9:15 AM EDT Office Visit [facility] Ophthalmology [address] [place] [address] Roland Gutierrez MD [address] [place] [address] *YEARLY, HX PPV, DFE/OCT Ophthalmology Comment on above: *YEARLY, HX PPV, DFE/OCT Start: 09-08-2023 End: 09-08-2023 Follow-up encounter 09/08/2023 3:00 PM EDT Visit (SP) Office Hematology/Oncology [address] [place] [address] Shaheen Diehl MD [address] [place] [address] 2 month follow up lab Hematology/Oncology Comment on above: 2 month follow up lab Start: 09-08-2023 End: 09-08-2023 Patient encounter procedure 09/08/2023 2:45 PM EDT Office Visit [facility] [address] [place] [address] 2 month follow up lab [facility] Comment on above: 2 month follow up lab Start: 08-30-2023 Medicare Annual Wellness Visit Medicare Annual Wellness Visit [facility] Start: 08-26-2023 End: 08-26-2023 Patient encounter procedure 08/26/2023 1:40 PM EDT Office Visit [facility] - [facility] Medicine [address] [place] [address] Chepe Bentley, PROCESS MANAGER-ABLE BODIED TANKERMAN [address] [place] [address] [facility] Start: 08-10-2023 Hemoglobin A1c measurement HbA1C [facility] Start: 07-05-2023 Hemoglobin A1c/Hemoglobin.total in Blood HbA1C [facility] Start: 05-14-2023 End: 05-01-2024 CBC W Auto Differential panel - Blood CBC + DIFF Lab Routine Prostate CA (HCC) Expected: 05/14/2023 (Approximate), Expires: 05/01/2024 [facility] Work Phone: Comment on above: Expected: 05/14/2023 (Approximate), Expi res: 05/01/2024 Start: 05-14-2023 End: 05-01-2024 Comprehensive metabolic 2000 panel - Serum or Plasma COMP METABOLIC PANEL Lab Routine Prostate CA (FORM[facility]LY [facility]) Expected: 05/14/2023 (Approximate), Expires: 05/01/2024 [facility] Work Phone: Comment on above: Expected: 05/14/2023 (Approximate), Expi res: 05/01/2024 Start: 05-14-2023 End: 08-13-2023 Prostate specific Ag [Mass/volume] in Serum or Plasma PSA/PROSTSPECAG DIAG Lab Routine Prostate CA (HCC) Expected: 05/14/2023 (Approximate), Expires: 08/13/2023 [facility] Work Phone: Comment on above: Expected: 05/14/2023 (Approximate), Expi res: 08/13/2023 Start: 05-13-2023 FUV, Provider: Sean Franklin, Status: Pen, Time: 11:20 AM FUV, Provider: Sean Franklin, Status: Pen, Time: 11:20 AM -[facility] 250 DO Work Phone: Start: 05-09-2023 Glaucoma screening Dilated Retinal Exam [facility] Start: 05-09-2023 Hepatitis C antibody, confirmatory test DILATED RETINAL EXAM [facility] Start: 05-06-2023 End: 07-06-2023 ALBUMIN/CREAT RATIO RND UR ALBUMIN/CREAT RATIO RND UR Lab Routine Type 2 diabetes mellitus with stage 3b chronic kidney disease, with long-term current use of insulin (HCC) Expected: 05/06/2023, Expires: 07/06/2023 [facility] Work Phone: Comment on above: Expected: 05/06/2023, Expires: Start: 05-06-2023 End: 07-06-2023 Comprehensive metabolic 2000 panel - Serum or Plasma COMP METABOLIC PANEL Lab Routine Type 2 diabetes mellitus with stage 3b chronic kidney disease, with long-term current use of insulin (HCC) Expected: 05/06/2023, Expires: 07/06/2023 [facility] Work Phone: Comment on above: Expected: 05/06/2023, Expires: 4 Start: 05-06-2023 End: 07-06-2023 Hemoglobin A1c in Blood HGB A1C Lab Routine Type 2 diabetes mellitus with stage 3b chronic kidney disease, with long-term current use of insulin (HCC) Expected: 05/06/2023, Expires: 07/06/2023 [facility] Work Phone: Comment on above: Expected: 05/06/2023, Expires: 4 Start: 05-06-2023 End: 07-06-2023 Lipid 1996 panel - Serum or Plasma LIPID PANEL BASIC Lab Routine Dyslipidemia Expected: 05/06/2023, Expires: 07/06/2023 [facility] Work Phone: Comment on above: Expected: 05/06/2023, Expires: 4 Start: 05-06-2023 End: 07-06-2023 Thyrotropin [Units/volume] in Serum or Plasma TSH BLD Lab Routine Acquired hypothyroidism Expected: 05/06/2023, Expires: 07/06/2023 [facility] Work Phone: Comment on above: Expected: 05/06/2023, Expires: 4 Start: 04-10-2023 Hepatitis B screening URINE ALBUMIN:CREATININE RATIO [facility] Start: 04-10-2023 Hepatitis B surface antibody level LDL CHOLESTEROL [facility] Start: 04-05-2023 Hemoglobin A1c measurement HbA1C [facility] Start: 03-24-2023 Advance Directive Discussion Advance Directive Discussion [facility] Start: 03-24-2023 Behavioral Health Screening Behavioral Health Screening [facility] Start: 03-24-2023 Depression Assessment Depression Assessment [facility] Start: 03-20-2023 Echocardiography [facility] Start: 02-09-2023 Hemoglobin A1c/Hemoglobin.total in Blood HBA1C [facility] Start: 11-22-2022 Covid-19 Vaccine ( season) Covid-19 Vaccine () [facility] Start: 11-22-2022 COVID-19 Vaccine () COVID-19 Vaccine () [facility] Start: 11-22-2022 Influenza vaccination [facility] Start: 11-11-2022 End: 11-07-2023 CBC W Auto Differential panel - Blood CBC + DIFF Lab Routine Prostate CA (HCC) Expected: 11/11/2022 (Approximate), Expires: 11/07/2023 [facility] Work Phone: Comment on above: Expected: 11/11/2022 (Approximate), Expi res: 11/07/2023 Start: 11-11-2022 End: 11-07-2023 Comprehensive metabolic 2000 panel - Serum or Plasma COMP METABOLIC PANEL Lab Routine Prostate CA (HCC) Expected: 11/11/2022 (Approximate), Expires: 11/07/2023 [facility] Work Phone: Comment on above: Expected: 11/11/2022 (Approximate), Expi res: 11/07/2023 Start: 11-11-2022 End: 01-11-2023 Prostate specific Ag [Mass/volume] in Serum or Plasma PSA/PROSTSPECAG DIAG Lab Routine Prostate CA (HCC) Expected: 11/11/2022 (Approximate), Expires: 01/11/2023 [facility] Work Phone: Comment on above: Expected: 11/11/2022 (Approximate), Expi res: 01/11/2023 Start: 11-01-2022 FUV, Provider: Sean Franklin, Status: Pen, Time: 2:10 PM FUV, Provider: Sean Franklin, Status: Laz, Time: 2:10 PM -[facility] 250 DO Work Phone: Start: 08-07-2022 End: 05-10-2023 CBC W Auto Differential panel - Blood CBC + DIFF Lab Routine Prostate CA (HCC) Lower urinary tract symptoms (LUTS) Expected: 08/07/2022 (Approximate), Expires: 05/10/2023 [facility] Work Phone: Comment on above: Expected: 08/07/2022 (Approximate), Expi res: 05/10/2023 Start: 08-07-2022 End: 05-10-2023 Comprehensive metabolic 2000 panel - Serum or Plasma COMP METABOLIC PANEL Lab Routine Prostate CA (HCC) Lower urinary tract symptoms (LUTS) Expected: 08/07/2022 (Approximate), Expires: 05/10/2023 [facility] Work Phone: Comment on above: Expected: 08/07/2022 (Approximate), Expi res: 05/10/2023 Start: 08-07-2022 End: 10-07-2022 Prostate specific Ag [Mass/volume] in Serum or Plasma PSA/PROSTSPECAG DIAG Lab Routine Prostate CA (HCC) Lower urinary tract symptoms (LUTS) Expected: 08/07/2022 (Approximate), Expires: 10/07/2022 [facility] Work Phone: Comment on above: Expected: 08/07/2022 (Approximate), Expi res: 10/07/2022 Start: 07-10-2022 Hepatitis B screening URINE ALBUMIN:CREATININE RATIO [facility] Start: 07-09-2022 Hemoglobin A1c/Hemoglobin.total in Blood HBA1C [facility] Start: 05-25-2022 End: 01-25-2023 CBC W Auto Differential panel - Blood CBC + DIFF Lab Routine Prostate CA (HCC) Lower urinary tract symptoms (LUTS) Expected: 05/25/2022 (Approximate), Expires: 01/25/2023 [facility] Work Phone: Comment on above: Expected: 05/25/2022 (Approximate), Expi res: 01/25/2023 Start: 05-25-2022 End: 01-25-2023 Comprehensive metabolic 2000 panel - Serum or Plasma COMP METABOLIC PANEL Lab Routine Prostate CA (HCC) Lower urinary tract symptoms (LUTS) Expected: 05/25/2022 (Approximate), Expires: 01/25/2023 [facility] Work Phone: Comment on above: Expected: 05/25/2022 (Approximate), Expi res: 01/25/2023 Start: 05-25-2022 End: 07-25-2022 Prostate specific Ag [Mass/volume] in Serum or Plasma PSA/PROSTSPECAG DIAG Lab Routine Prostate CA (HCC) Lower urinary tract symptoms (LUTS) Expected: 05/25/2022 (Approximate), Expires: 07/25/2022 [facility] Work Phone: Comment on above: Expected: 05/25/2022 (Approximate), Expi res: 07/25/2022 Start: 05-12-2022 Hemoglobin A1c/Hemoglobin.total in Blood HBA1C [facility] Start: 04-02-2022 Hepatitis B surface antibody level LDL CHOLESTEROL [facility] Start: 03-26-2022 [facility] Start: 03-25-2022 Referral to neurologist [facility] Start: 03-24-2022 ADVANCE DIRECTIVE DISCUSSION ADVANCE DIRECTIVE DISCUSSION [facility] Start: 03-24-2022 DEPRESSION ASSESSMENT DEPRESSION ASSESSMENT [facility] Start: 03-23-2022 Hospital admission [facility] Start: 03-22-2022 [facility] Start: 03-21-2022 Hospital admission [facility] Start: 03-20-2022 Referral to mobile crane operator [facility] Start: 03-20-2022 Hospital admission [facility] Start: 03-11-2022 End: 05-11-2022 ALBUMIN/CREAT RATIO RND UR ALBUMIN/CREAT RATIO RND UR Lab Routine Type 2 diabetes mell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, with long-term current use of insulin (HCC) Expected: 03/11/2022, Expires: 05/11/2022 [facility] Work Phone: Comment on above: Expected: 03/11/2022, Expires: Start: 03-11-2022 End: 05-11-2022 Comprehensive metabolic 2000 panel - Serum or Plasma COMP METABOLIC PANEL Lab Routine Type 2 diabetes mell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, with long-term current use of insulin (HCC) Expected: 03/11/2022, Expires: 05/11/2022 [facility] Work Phone: Comment on above: Expected: 03/11/2022, Expires: 3 Start: 03-11-2022 End: 05-11-2022 Hemoglobin A1c in Blood HGB A1C Lab Routine Type 2 diabetes mell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, with long-term current use of insulin (HCC) Expected: 03/11/2022, Expires: 05/11/2022 [facility] Work Phone: Comment on above: Expected: 03/11/2022, Expires: 3 Start: 03-11-2022 End: 05-11-2022 Lipid 1996 panel - Serum or Plasma LIPID PANEL BASIC Lab Routine Dyslipidemia Expected: 03/11/2022, Expires: 05/11/2022 [facility] Work Phone: Comment on above: Expected: 03/11/2022, Expires: 3 Start: 03-11-2022 End: 05-11-2022 Thyrotropin [Units/volume] in Serum or Plasma TSH BLD Lab Routine Acquired hypothyroidism Expected: 03/11/2022, Expires: 05/11/2022 [facility] Work Phone: Comment on above: Expected: 03/11/2022, Expires: 3 Start: 02-19-2022 FUV, Provider: Sean Franklin, Status: Laz, Time: 11:00 AM FUV, Provider: Sean Franklin, Status: Laz, [facility]: [facility] Work Phone: Start: 11-22-2021 Influenza vaccination [facility] Start: 11-02-2021 Hepatitis C antibody, confirmatory test DILATED RETINAL EXAM [facility] Start: 10-09-2021 Hemoglobin A1c/Hemoglobin.total in Blood HBA1C [facility] Start: 05-16-2021 FUV, Provider: Sean Franklin, Status: Laz, Time: 1:45 PM FUV, Provider: Sean Franklin, Status: Laz, Time: 1:45 PM [facility] 600 DO Work Phone: Start: 03-24-2021 ADVANCE DIRECTIVE DISCUSSION ADVANCE DIRECTIVE DISCUSSION [facility] Start: 03-24-2021 DEPRESSION ASSESSMENT DEPRESSION ASSESSMENT [facility] Start: 09-20-2020 COVID-19 VACCINE (4 - Booster) COVID-19 VACCINE (4 - Booster) [facility] Start: 08-23-2020 COVID-19 VACCINE (4 - Booster for Pfizer series) COVID-19 VACCINE (4 - Booster for Pfizer series) [facility] Start: 08-23-2020 COVID-19 VACCINE (4 - Booster) COVID-19 VACCINE (4 - Booster) [facility] Start: 08-23-2020 COVID-19 VACCINE (4 - Pfizer risk series) COVID-19 VACCINE (4 - Pfizer risk series) [facility] Start: 07-26-2020 COVID-19 VACCINE (3 - Pfizer risk 4-dose series) COVID-19 VACCINE (3 - Pfizer risk 4-dose series) [facility] Start: 07-26-2020 COVID-19 VACCINE (3 - Pfizer risk series) COVID-19 VACCINE (3 - Pfizer risk series) [facility] Start: 07-19-2020 COVID-19 Vaccine (2 - Pfizer risk series) COVID-19 Vaccine (2 - Pfizer risk series) [facility] Start: 06-16-2013 3 comp foot exam completed DIABETIC FOOT EXAM [facility] Start: 06-16-2013 Diabetic foot examination Diabetic Foot Exam [facility] Start: 11-21-2011 RSV High Risk: (Elderly (60+) or Population) (1 - 1-dose 75+ series) RSV High Risk: (Elderly (60+) or Population) (1 - 1-dose 75+ series) [facility] Start: 11-21-2011 RSV Vaccine (1 - 1-dose 75+ series) RSV Vaccine (1 - 1-dose 75+ series) [facility] Start: 10-22-2001 Medicare Annual Wellness Visit Medicare Annual Wellness Visit [facility] Start: 1996 Hepatitis B Vaccine (1 of 3 - Risk 3-dose series) Hepatitis B Vaccine (1 of 3 - Risk 3-dose series) [facility] Start: 1996 RSV patients and/or patients aged 60+ years (1 - 1-dose 60+ series) RSV patients and/or patients aged 60+ years (1 - 1-dose 60+ series) [facility] Start: 1996 RSV Vaccine (1 - 1-dose 60+ series) RSV Vaccine (1 - 1-dose 60+ series) [facility] Start: 1986 SHINGRIX VACCINE (1 of 2) SHINGRIX VACCINE (1 of 2) [facility] Start: 11-21-1955 Administration of varicella zoster vaccine Zoster (Shingles) Vaccine (1 of 2) [facility] Start: 11-21-1955 SHINGRIX VACCINE (1 of 2) SHINGRIX VACCINE (1 of 2) [facility] Start: 11-21-1955 Urine microalbumin profile DTAP,TDAP,TD (1 - Tdap) [facility] Start: 11-21-1955 Zoster Vaccines (1 of 2) Zoster Vaccines (1 of 2) [facility] Start: 1954 Adult BMI Follow Up Plan Adult BMI Follow Up Plan [facility] Start: 1954 Anxiety Screening Anxiety Screening [facility] Start: 1954 Depression Screening Depression Screening [facility] Start: 1954 SPIROMETRY SPIROMETRY [facility] Start: 1946 Glaucoma screening Diabetes: Retinopathy Screening [facility] Start: 1936 Creatinine measurement Creatinine Level [facility] Start: 1936 Lipid panel Lipid Panel [facility] Start: 1936 Potassium measurement Potassium Level [facility] ALBUMIN/CREAT RATIO RND UR ALBUMIN/CREAT RATIO RND UR Lab Routine Type 2 diabetes mell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, with long-term current use of insulin ([facility]) 04/10/2022 8:27 AM EST [facility] Work Phone: ALBUMIN/CREAT RATIO RND UR ALBUMIN/CREAT RATIO RND UR Lab Routine Type 2 diabetes mellitus with stage 3b chronic kidney disease, with long-term current use of insulin ([facility]) 05/12/2023 11:05 AM EST [facility] Work Phone: ALBUMIN/CREAT RATIO RND UR ALBUMIN/CREAT RATIO RND UR Lab Routine Type 2 diabetes mellitus with stage 3b chronic kidney disease, with long-term current use of insulin ([facility]) 12/01/2023 2:12 PM EDT [facility] Work Phone: Blood chemistry [facility] End: 07-06-2024 CBC W Auto Differential panel - Blood COMPLETE BLOOD COUNT AND DIFFERENTIAL Lab Routine PSA elevation Every 2 months for 6 Occurrences starting 07/07/2023 until 07/06/2024 [facility] Work Phone: Comment on above: Every 2 months for 6 Occurrences startin g 07/07/2023 until 07/06/2024 Cobalamin (Vitamin B 12) [Mass/volume] in Serum or Plasma VITAMIN B12 Lab Routine Prostate CA (FORMERLY [facility]) 04/20/2024 11:01 AM EST [facility] End: 07-06-2024 Comprehensive metabolic 2000 panel - Serum or Plasma COMPREHENSIVE METABOLIC PANEL Lab Routine PSA elevation Every 2 months for 6 Occurrences starting 07/07/2023 until 07/06/2024 [facility] Work Phone: Comment on above: Every 2 months for 6 Occurrences startin g 07/07/2023 until 07/06/2024 End: 02-10-2023 Ct abdomen & pelvis w/contrast material CT ABD/PEL W IVCON Radiology Routine Lower urinary tract symptoms (LUTS) Prostate CA (HCC) 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) Diffuse large B-cell lymphoma, unspecified body region (HCC) 1 Occurrences starting 01/11/2022 until 02/10/2023 [facility] Work Phone: Comment on above: 1 Occurrences starting 01/11/2022 until 02/10/2023 End: 02-10-2023 CT CHEST W IVCON CT CHEST W IVCON Radiology Routine Lower urinary tract symptoms (LUTS) Prostate CA (HCC) 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) Diffuse large B-cell lymphoma, unspecified body region (HCC) 1 Occurrences starting 01/11/2022 until 02/10/2023 [facility] Work Phone: Comment on above: 1 Occurrences starting 01/11/2022 until 02/10/2023 Ferritin [Mass/volum e] in Serum or Plasma FERRITIN Lab Routine Prostate CA (FORM[facility]LY [facility]) 04/20/2024 11:01 AM EST [facility] Folate [Mass/volume] in Serum or Plasma FOLATE, SERUM Lab Routine Prostate CA (HCC) 04/20/2024 11:01 AM EST [facility] Hemoglobin A1c in Blood HGB A1C Lab Routine Type 2 diabetes mell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, with long-term current use of insulin (HCC) 04/10/2022 8:27 AM EST [facility] Work Phone: Iron and Iron bindin g capacity panel - Serum or Plasma IRON AND TIBC Lab Routine Prostate CA (HCC) 04/20/2024 11:01 AM [facility] Lipid 1996 panel - S taisha or Plasma LIPID PANEL BASIC Lab Routine Dyslipidemia 04/10/2022 8:27 AM [facility] Work Phone: MR Lumbar spine WO contrast [facility] Patient Education [facility] Work Phone: Patient referral [facility] Work Phone: End: 06-29-2024 PET+CT Guidance for localization of tumor of Whole body-- W [id number] IV NM PET/CT PROSTATE WHOLE BODY IMAGING Radiology Routine Prostate CA (FORM[facility]LY [facility]) PSA elevation 1 Occurrences starting 05/31/2023 until 06/29/2024 [facility] Work Phone: Comment on above: 1 Occurrences starting 05/31/2023 until 06/29/2024 Prostate specific Ag [Mass/volume] in Serum or Plasma PSA/PROSTSPECAG DIAG Lab Routine Lower urinary tract symptoms (LUTS) Prostate CA (HCC) 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) 01/11/2022 10:49 AM EDT [facility] Work Phone: Prostate specific Ag [Mass/volume] in Serum or Plasma PSA/PROSTSPECAG DIAG Lab Routine Prostate CA ([facility]) Lower urinary tract symptoms (LUTS) 05/10/2022 10:04 AM EST [facility] Work Phone: End: 07-06-2024 Prostate specific Ag [Mass/volume] in Serum or Plasma PROSTATE-SPECIFIC ANTIGEN DIAGNOSTIC Lab Routine PSA elevation Every 2 months for 6 Occurrences starting 07/07/2023 until 07/06/2024 [facility] Work Phone: Comment on above: Every 2 months for 6 Occurrences startin g 07/07/2023 until 07/06/2024 Prostate specific Ag [Mass/volume] in Serum or Plasma PROSTATE-SPECIFIC ANTIGEN DIAGNOSTIC Lab Routine PSA elevation 09/08/2023 3:30 PM [facility] Work Phone: Prostate specific Ag [Mass/volume] in Serum or Plasma PROSTATE-SPECIFIC ANTIGEN DIAGNOSTIC Lab Routine PSA elevation 12/01/2023 2:12 PM [facility] Work Phone: Prostate specific Ag [Mass/volume] in Serum or Plasma PROSTATE-SPECIFIC ANTIGEN DIAGNOSTIC Lab Routine PSA elevation 12/29/2023 2:19 PM [facility] Work Phone: Prostate specific Ag [Mass/volume] in Serum or Plasma PROSTATE-SPECIFIC ANTIGEN DIAGNOSTIC Lab Routine Prostate CA (HCC) 04/20/2024 11:01 AM [facility] Work Phone: Prostate specific Ag [Mass/volume] in Serum or Plasma PROSTATE-SPECIFIC ANTIGEN DIAGNOSTIC Lab Routine Type 2 diabetes mellitus with stage 3b chronic kidney disease, with long-term current use of insulin (HCC) Prostate CA (HCC) History of diffuse large B-cell lymphoma 06/29/2024 9:56 AM [facility] Work Phone: Thyrotropin [Units/volume] in Serum or Plasma TSH BLD Lab Routine Acquired hypothyroidism 04/10/2022 8:27 AM [facility] Work Phone: Thyrotropin [Units/volume] in Serum or Plasma TSH BLD Lab Routine Acquired hypothyroidism 12/29/2023 2:36 PM [facility] Work Phone: Urinalysis complete panel - Urine URINALYSIS WITH MICROSCOPIC, REFLEX CULTURE Lab Routine Lower urinary tract symptoms (LUTS) Prostate CA (HCC) 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) 01/11/2022 10:48 AM [facility] Work Phone: [facility] Immunizations Immunization Date Immunization Notes Care Provider [facility] 12-09-2020 diphtheria, tetanus toxoids and pertussis vaccine Yariel Washington Kay Work Phone: [facility] 12-09-2020 tetanus toxoid, redu charmaine diphtheria toxoid, and acellular pertussis vaccine, adsorbed NA Luis MARTINEZ Work Phone: [facility] 11-22-2020 diphtheria, tetanus toxoids and pertussis vaccine Lab/[facility] Work Phone: [facility] 06-28-2020 Pfizer-BioNTech COVI D-19 Vacc 30 MCG/0.3ML Intramuscular Suspension Yariel Washington Kay Work Phone: [facility] 06-22-2020 COVID-19, mRNA, LNP- S, PF, 30mcg/0.3mL Dose [facility] 06-07-2020 Pfizer-BioNTech COVI D-19 Vacc 30 MCG/0.3ML Intramuscular Suspension Yariel Bentleyyelitza Work Phone: [facility] 05-22-2020 COVID-19 original vaccine, age 12+ yr, monovalent (PFIZER-BIONTECH - PURPLE TOP) Lab/[facility] Work Phone: [facility] 01-27-2017 pneumococcal conjuga te vaccine, 13 valent Yariel Villanueva Work Phone: [facility] 11-07-2014 pneumococcal conjuga te vaccine, 13 valent Arnold Handley APRN.CARDING SUPERVISOR Work Phone: [facility] 01-29-2011 pneumococcal polysaccharide vaccine, 23 valent Yariel Washington Furlong Work Phone: [facility] 03-24-2010 pneumococcal polysaccharide vaccine, 23 valent Yariel Washington Furlong Work Phone: [facility] 03-24-2006 pneumococcal polysaccharide vaccine, 23 valent Lab/[place] Work Phone: [facility] pneumococcal polysaccharide vaccine, 23 valent Yariel Washington Furlong Work Phone: [facility] [place] 250 DO Work Phone: Comment on above: 2006 Payers Date Payer Category Payer Self-pay [id number] 03-24-2023 Medicare supplementa l policy (as second payer) [facility] [id number] 03-24-2022 Managed Care Other (unspecified) [facility] [id number] 01-22-2022 Private Health Insurance [id number] 09-21-2018 Unknown 09-21-2018 Unknown MMO MMO SUPERMED PLUS [id number] 09/21/2018-Present [phone] [address] [place] [address] PPO [id number] 10-22-2001 Medicare MEDICARE MEDICAR E A AND B [id number] 10/22/2001-Present [phone] [address] [address] [place] [address] Medicare [id number] 10-22-2001 Medicare [id number]. [id number] 03-24-1959 Medicare [id number] 03-24-1959 Unknown [id number] 1936 Unknown [id number] 2.840.1.410757.3.579. 2.355 1936 Unknown [id number] 2.840.1.319955.3.579. 2.355 1936 Unknown [id number] 2.16840.1.020565.3.579. 2.355 1936 Unknown [id number] 2.16840.1.914795.3.579. 2.355 1936 Unknown [id number] 2.16840.1.234815.3.579. 2.593 1936 Unknown [id number] 2.16840.1.693480.3.579. 2.593 1936 Unknown [id number] 2.16.840.1.455897.3.579. 2.356 1936 Unknown [id number] 2.16.840.1.605690.3.579. 2.356 1936 Unknown [id number] 2.16.840.1.034133.3.579. 2.356 1936 Unknown [id number] 2.16.840.1.133708.3.579. 2.356 1936 Unknown [id number] 2.16.840.1.351070.3.579. 2.356 1936 Unknown [id number] 2.16.840.1.149747.3.579. 2.1259 1936 Unknown [id number] 2.840.1.359173.3.579. 2.1259 1936 Unknown [id number] 2.16840.1.596859.3.579. 2.1259 1936 Unknown [id number] 2.840.1.347628.3.579. 2.1259 1936 Unknown [id number] 2.840.1.000990.3.579. 2.1259 1936 Unknown [id number] 2.840.1.989072.3.579. 2.1259 1936 Unknown [id number] 2.16840.1.935162.3.579. 2.1244 1936 Unknown [id number] 2.840.1.576105.3.579. 2.1244 Medicare [id number] Private Health Insurance 2 [id number] Unknown [facility] [id number] Unknown [facility] [id number] Unknown [id number] Unknown [id number] 2.16.840.1.941306.3.579. 2.531 Unknown [id number] 2.16.840.1.691572.3.579. 2.531 Unknown [id number] 2.16.840.1.259875.3.579. 2.531 Unknown [id number] 2.16.840.1.942355.3.579. 2.531 Unknown [id number] 2.16.840.1.220541.3.579. 2.531 Unknown [id number] 2.16.840.1.871131.3.579. 2.531 Social History Date Type Detail Facility Start: 08-14-2022 End: 09-28-2024 Never a smoker Never a smoker [facility] Comment on above: coffee, tea, diet so da very little; Start: 07-19-2017 End: 05-19-2023 Tobacco smoking status NHIS Never smoked tobacco [facility] Start: 07-17-2021 End: 09-27-2024 Alcohol intake Current non-drinker of alcohol (finding) [facility] Start: 1935 Sex Assigned At Not on file [facility] Start: 1935 Sex Assigned At Male F [facility] Start: 07-10-2011 End: 05-19-2023 Tobacco use and exposure Smokeless tobacco non-user [facility] History of tobacco use Passive smoker [facility] Start: 01-01-2022 End: 12-24-2023 Exposure to SARS-CoV-2 (event) Not sure [facility] Start: 03-25-2022 End: 06-08-2024 Tobacco smoking status KYIS Unknown if ever smoked [facility] Start: 08-14-2022 End: 09-28-2024 Tobacco use panel [facility] Adult Depression Screening Assessment 0 [facility] Start: 12-24-2023 End: 09-28-2024 Alcoholic beverage intake Lifetime non-drinker (finding) [facility] Start: 11-19-2023 End: 07-14-2024 Alcoholic beverage intake Current drinker of alcohol (finding) [facility] Start: 05-26-2023 Alcohol Comment caffeine intak e: 1-2 cups per day [facility] Start: 02-05-2024 End: 09-01-2024 Sex Male (finding) [facility] Do you belong to any clubs or organizations such as pentecostal groups, unions, fraternal or athletic groups, or school groups? No [facility] Are you now , , , , never or living with a partner? [facility] How often to you hav e a drink containing alcohol? Never [facility] How hard is it for y ou to pay for the very basics like food, housing, medical care, and heating Not very hard [facility] Do you feel stress - tense, restless, nervous, or anxious, or unable to sleep at night because your mind is troubled all the time - these days [OSQ] Not at all [employer] [employer] [facility] Medical Equipment Procedure Code Equipment Code Equipment Origin al Text Equipment Identifier Dates Insertion, pacemaker LEAD MRI CONDTENDRIL 46 FDA Start: 06-19-2017 Insertion, pacemaker LEAD MRI CONDTENDRIL 52 FDA Start: 06-19-2017 Insertion, pacemaker PACEMAKER ASSURITY MRI RF FDA Start: 06-19-2017 Insertion, pacemaker LEAD MRI CONDTENDRIL 46 FDA Start: 06-19-2017 Insertion, pacemaker LEAD MRI CONDTENDRIL 52 FDA Start: 06-19-2017 Insertion, pacemaker PACEMAKER ASSURITY MRI RF FDA Start: 06-19-2017 Insertion, pacemaker LEAD MRI CONDTENDRIL 46 FDA Start: 06-19-2017 Insertion, pacemaker LEAD MRI CONDTENDRIL 52 FDA Start: 06-19-2017 Insertion, pacemaker PACEMAKER ASSURITY MRI RF FDA Start: 06-19-2017 Insertion, pacemaker LEAD MRI CONDTENDRIL 46 FDA Start: 06-19-2017 Insertion, pacemaker LEAD MRI CONDTENDRIL 52 FDA Start: 06-19-2017 Insertion, pacemaker PACEMAKER ASSURITY MRI RF FDA Start: 06-19-2017 Insertion, pacemaker LEAD MRI CONDTENDRIL 46 FDA Start: 06-19-2017 Insertion, pacemaker LEAD MRI CONDTENDRIL 52 FDA Start: 06-19-2017 Insertion, pacemaker PACEMAKER ASSURITY MRI RF FDA Start: 06-19-2017 Insertion, pacemaker LEAD MRI CONDTENDRIL 46 FDA Start: 06-19-2017 Insertion, pacemaker LEAD MRI CONDTENDRIL 52 FDA Start: 06-19-2017 Insertion, pacemaker PACEMAKER ASSURITY MRI RF FDA Start: 06-19-2017 Insertion, pacemaker LEAD MRI CONDTENDRIL 46 FDA Start: 06-19-2017 Insertion, pacemaker LEAD MRI CONDTENDRIL 52 FDA Start: 06-19-2017 Insertion, pacemaker PACEMAKER ASSURITY MRI RF DR FDA Start: 06-19-2017 Insertion, pacemaker LEAD MRI CONDTENDRIL 46 FDA Start: 06-19-2017 Insertion, pacemaker LEAD MRI CONDTENDRIL 52 FDA Start: 06-19-2017 Insertion, pacemaker PACEMAKER ASSURITY MRI RF FDA Start: 06-19-2017 Insertion, pacemaker LEAD MRI CONDTENDRIL 46 FDA Start: 06-19-2017 Insertion, pacemaker LEAD MRI CONDTENDRIL 52 FDA Start: 06-19-2017 Insertion, pacemaker PACEMAKER ASSURITY MRI RF FDA Start: 06-19-2017 Insertion, pacemaker LEAD MRI CONDTENDRIL 46 FDA Start: 06-19-2017 Insertion, pacemaker LEAD MRI CONDTENDRIL 52 FDA Start: 06-19-2017 Insertion, pacemaker PACEMAKER ASSURITY MRI RF FDA Start: 06-19-2017 Insertion, pacemaker LEAD MRI CONDTENDRIL 46 FDA Start: 06-19-2017 Insertion, pacemaker LEAD MRI CONDTENDRIL 52 FDA Start: 06-19-2017 Insertion, pacemaker PACEMAKER ASSURITY MRI RF FDA Start: 06-19-2017 Insertion, pacemaker LEAD MRI CONDTENDRIL 46 FDA Start: 06-19-2017 Insertion, pacemaker LEAD MRI CONDTENDRIL 52 FDA Start: 06-19-2017 Insertion, pacemaker PACEMAKER ASSURITY MRI RF FDA Start: 06-19-2017 Insertion, pacemaker LEAD MRI CONDTENDRIL 46 FDA Start: 06-19-2017 Insertion, pacemaker LEAD MRI CONDTENDRIL 52 FDA Start: 06-19-2017 Insertion, pacemaker PACEMAKER ASSURITY MRI RF FDA Start: 06-19-2017 Insertion, pacemaker LEAD MRI CONDTENDRIL 46 FDA Start: 06-19-2017 Insertion, pacemaker LEAD MRI CONDTENDRIL 52 FDA Start: 06-19-2017 Insertion, pacemaker PACEMAKER ASSURITY MRI RF FDA Start: 06-19-2017 Insertion, pacemaker LEAD MRI CONDTENDRIL 46 FDA Start: 06-19-2017 Insertion, pacemaker LEAD MRI CONDTENDRIL 52 FDA Start: 06-19-2017 Insertion, pacemaker PACEMAKER ASSURITY MRI RF FDA Start: 06-19-2017 Insertion, pacemaker LEAD MRI CONDTENDRIL 46 FDA Start: 06-19-2017 Insertion, pacemaker LEAD MRI CONDTENDRIL 52 FDA Start: 06-19-2017 Insertion, pacemaker PACEMAKER ASSURITY MRI RF FDA Start: 06-19-2017 Insertion, pacemaker LEAD MRI CONDTENDRIL 46 FDA Start: 06-19-2017 Insertion, pacemaker LEAD MRI CONDTENDRIL 52 FDA Start: 06-19-2017 Insertion, pacemaker PACEMAKER ASSURITY MRI RF FDA Start: 06-19-2017 Insertion, pacemaker LEAD MRI CONDTENDRIL 46 FDA Start: 06-19-2017 Insertion, pacemaker LEAD MRI CONDTENDRIL 52 FDA Start: 06-19-2017 Insertion, pacemaker PACEMAKER ASSURITY MRI RF FDA Start: 06-19-2017 Insertion, pacemaker LEAD MRI CONDTENDRIL 46 FDA Start: 06-19-2017 Insertion, pacemaker LEAD MRI CONDTENDRIL 52 FDA Start: 06-19-2017 Insertion, pacemaker PACEMAKER ASSURITY MRI RF FDA Start: 06-19-2017 Insertion, pacemaker LEAD MRI CONDTENDRIL 46 FDA Start: 06-19-2017 Insertion, pacemaker LEAD MRI CONDTENDRIL 52 FDA Start: 06-19-2017 Insertion, pacemaker PACEMAKER ASSURITY MRI RF FDA Start: 06-19-2017 Insertion, pacemaker LEAD MRI CONDTENDRIL 46 FDA Start: 06-19-2017 Insertion, pacemaker LEAD MRI CONDTENDRIL 52 FDA Start: 06-19-2017 Insertion, pacemaker PACEMAKER ASSURITY MRI RF FDA Start: 06-19-2017 Insertion, pacemaker LEAD MRI CONDTENDRIL 46 FDA Start: 06-19-2017 Insertion, pacemaker LEAD MRI CONDTENDRIL 52 FDA Start: 06-19-2017 Insertion, pacemaker PACEMAKER ASSURITY MRI RF FDA Start: 06-19-2017 [id number], [id number], [id number], [id number], [id number], [id number], [id number], [id number], [id number], [id number] Start: 10-13-2018 End: 07-08-2024 Comment on above: Test 3 x daily. nidd m e11.9 USE DIRECTED TWIC E DAILY with insulin injections Use 3 x daily to althea ck blood sugar. NIDDM e11.9. Patient has CONTOUR NEXT ONE METER. Use with insulin pen s 3 times daily Dx: E11.65 use to test BLOOD SHIN GAR THREE TIMES DAILY Blood Sugar Diagnostic (True Metrix Glucose Test Strip) strip Start: 02-25-2024 Pen Needle, Diabetic (Bd Cesia 2nd Gen Pen Needle) 32 gauge x 5/32 needle Start: 02-25-2024 Blood Sugar Diagnostic (True Metrix Glucose Test Strip) strip Start: 02-25-2024 Pen Needle, Diabetic (Bd Cesia 2nd Gen Pen Needle) 32 gauge x 5/32 needle Start: 02-25-2024 Blood Sugar Diagnostic (True Metrix Glucose Test Strip) strip Start: 02-25-2024 Pen Needle, Diabetic (Bd Cesia 2nd Gen Pen Needle) 32 gauge x 5/32 needle Start: 02-25-2024 Blood Sugar Diagnostic (True Metrix Glucose Test Strip) strip Start: 02-25-2024 Pen Needle, Diabetic (Bd Cesia 2nd Gen Pen Needle) 32 gauge x 5/32 needle Start: 02-25-2024 Blood Sugar Diagnostic (True Metrix Glucose Test Strip) strip Start: 02-25-2024 Pen Needle, Diabetic (Bd Cesia 2nd Gen Pen Needle) 32 gauge x 5/32 needle Start: 02-25-2024 Blood Sugar Diagnostic (True Metrix Glucose Test Strip) strip Start: 02-25-2024 Pen Needle, Diabetic (Bd Cesia 2nd Gen Pen Needle) 32 gauge x 5/32 needle Start: 02-25-2024 Blood Sugar Diagnostic (True Metrix Glucose Test Strip) strip Start: 02-25-2024 Pen Needle, Diabetic (Bd Cesia 2nd Gen Pen Needle) 32 gauge x 5/32 needle Start: 02-25-2024 Blood Sugar Diagnostic (True Metrix Glucose Test Strip) strip Start: 02-25-2024 Pen Needle, Diabetic (Bd Cesia 2nd Gen Pen Needle) 32 gauge x 5/32 needle Start: 02-25-2024 Blood Sugar Diagnostic (True Metrix Glucose Test Strip) strip Start: 02-25-2024 Pen Needle, Diabetic (Bd Cesia 2nd Gen Pen Needle) 32 gauge x 5/32 needle Start: 02-25-2024 Blood Sugar Diagnostic (True Metrix Glucose Test Strip) strip Start: 02-25-2024 Pen Needle, Diabetic (Bd Cesia 2nd Gen Pen Needle) 32 gauge x 5/32 needle Start: 02-25-2024 Goals Date Patient Goal Desired Activity /State Functional Status Date Assessment Result Facility 03-26-2022 Functional status Patient at [facility] Work Phone: 03-22-2022 Functional status Patient at [facility] Work Phone: 10-25-2014 Are you deaf, or do you have serious difficulty hearing No 10/25/2014 2:28 PM Karis Casas Ma [facility] 10-25-2014 Are you blind, or do you have serious difficulty seeing, even when wearing glasses No 10/25/2014 2:28 PM Karis Casas Ma [facility] 10-25-2014 Do you have serious difficulty walking or climbing stairs No 10/25/2014 2:28 PM Karis Casas Ma [facility] 10-25-2014 Do you have difficul ty dressing or bathing No 10/25/2014 2:28 PM Karis Casas Ma [facility] 10-25-2014 Because of a physica l, mental, or emotional condition, do you have difficulty doing errands alone such as visiting a physician's office or shopping No 10/25/2014 2:28 PM Karis Casas Ma [facility] Mental Status Date Assessment Result Facility 03-26-2022 Cognitive function Cognitive Sta tus Patient at [facility] Work Phone: 03-22-2022 Cognitive function Cognitive Sta tus Patient at [facility] Work Phone: 10-25-2014 Because of a physica l, mental, or emotional condition, do you have serious difficulty concentrating, remembering, or making decisions No 10/25/2014 2:28 PM Karis Casas Ma [facility] Clinical Notes 09-27-2014 to 09-28-2024 David Jackson MD - 09/28/2024 1:20 PM EDTPatient InstructionsAttachmentsPatient InstructionsArnold Handley APRN.CARDING SUPERVISOR - 09/27/2024 1:21 PM Roland Donis MD - 09/16/2024 10:14 AM EDT Note Date & Type Note Facility 09-28-2024 History of Present illness Narrative Chief Complaint Patient presents with Follow-up 9 months Sick sinus syndrome (Multi) Subjective Jamel Bonds is a 88 y.o. male HPI Patient [...] mainly on device check completely asymptomatic last episode lasted almost 12 days 3. Long-term anticoagulation due [...] tablet losartan (Cozaar) 50 mg tablet 8. clother in current use of anticoagulant therapy 9. Stage 3a chronic kidney disease (Multi) 10. BMI 26.0-26.9,adult 11. Never smoked tobacco 12. Hyperthyroidism levothyroxine (Synthroid, Levoxyl) 25 mcg tablet Scribe Attestation By signing my name below, I, Kelly Rodriguez LPN attest that this documentation has been prepared under the direction and in the presence of David Jackson MD. Provider Attestation - Scribe documentation All medical record entries made by the Scribe were at my direction and personally dictated by me. I have reviewed the chart and agree that the record accurately reflects my personal performance of the history, physical exam, discussion and plan. documented in this encounter [facility] Work Phone: 09-28-2024 Instructions Jennifer Nieves LPN - 09/28/2024 1:20 PM [...] -20.9 Lbs Provided instructions on dietary changes. The following attachments cannot be sent through Care Everywhere.Heart Healthy Diet (Irish)documented in this encounter [facility] Work Phone: 09-27-2024 Instructions Arnold Handley APRN.CNP - 09/27/2024 1:27 PM EDT Plan [...] in 4 months documented in this encounter [facility] 09-27-2024 Note HNO ID: [id number] Author: ARNOLD HANDLEY APRN.CARDING SUPERVISOR Service: ? Author Type: Nurse Practitioner Type: Progress Notes Filed: 09/27/2024 13:37 Note Text: Endocrinology Follow-up History of Present Illness Jamel Bonds is a 88 year old male presents [...] cocoa 11-12 PM: Dinner 2 slices of vincentian cheese and ham, Glucerna 5-6 PM: Supper: biggest meal SMBG Frequency of Monitoring: Three times a Day BG Values: See HPI Hypoglycemia Frequency: none Current DM Related Medications: Current Medications 09/27/2024 DIABETES THERAPIES Medication Dosage Pharm Subclass FARXIGA 10 mg tablet TAKE 1 TABLET BY MOUTH DAILY WITH BREAKFAST Antihyperglycemic - Sodium Glucose Cotransporter-2 (SGLT2) Inhibitors NOVOLOG MIX 70-30 100 unit/mL [...] FOR IMPLANTED VASCULAR ACCESS DEVICE (IVAD) FLUSH. AMBULATORY/OUTPATIENT: PLEASE REORDER UPON HOSPITAL DISCHARGE May [...] and DME - Glucose Monitoring Test Supplies ruflqym-qbhzmqoik-petqsxy D3 (OS-BESSY 500+D) 500 mg(1,250mg) -200 unit [...] fluticasone (FLONASE) 50 mcg/actuation nasal spray 1 [place] as needed. Nasal Corticosteroids Insulin Reasnor, Disposable, (UNIFINE PENTIPS PLUS) 32 gauge x 5/32 Use with insulin pens 3 times daily Dx: E11.65 Medical Supplies and DME - Insulin Reasnor-Syringes and Admin Supplies Lactobac no.41-Bifidobact no.7 70 mg (3 billion cell) cap Probiotic 1 tab daily Intestinal Claudia Modifiers Lancets Check glucose 3 times daily Dx: E11.65 Medical Supplies and DME - Glucose Monitoring Test Supplies levothyroxine (SYNTHROI (more content not included)... [facility] 09-27-2024 History of Present illness Narrative Endocrinology Follow-up History of Present Illness Jamel Bonds is a 88 year old male presents [...] cocoa 11-12 PM: Dinner 2 slices of vincentian cheese and ham, Glucerna 5-6 PM: Supper: biggest meal SMBG Frequency of Monitoring: Three times a Day BG Values: See HPI Hypoglycemia Frequency: none Current DM Related Medications: Current Medications 09/27/2024 DIABETES THERAPIES Medication Dosage Pharm Subclass FARXIGA 10 mg tablet TAKE 1 TABLET BY MOUTH DAILY WITH BREAKFAST Antihyperglycemic - Sodium Glucose Cotransporter-2 (SGLT2) Inhibitors NOVOLOG MIX 70-30 100 unit/mL [...] FOR IMPLANTED VASCULAR ACCESS DEVICE (IVAD) FLUSH. AMBULATORY/OUTPATIENT: PLEASE REORDER UPON HOSPITAL DISCHARGE May [...] and DME - Glucose Monitoring Test Supplies bxwoixi-gncacglgc-jqwgkdv D3 (OS-BESSY 500+D) 500 mg(1,250mg) -200 unit [...] fluticasone (FLONASE) 50 mcg/actuation nasal spray 1 [place] as needed. Nasal Corticosteroids Insulin Reasnor, Disposable, (UNIFINE PENTIPS PLUS) 32 gauge x 5/32 Use with insulin pens 3 times daily Dx: E11.65 Medical Supplies and DME - Insulin Reasnor-Syringes and Admin Supplies Lactobac no.41-Bifidobact no.7 70 [...] day by oral route. Gastric Acid Secretion Tool Operator - Proton Pump Inhibitors (PPIs) tamsulosin (FLOMAX) 0.4 mg Take 1 capsule by mouth once daily. Prostatic Hypertrophy Agent - xtzjn-2-Ohxfxxqupkps Antagonists traMADol (ULTRAM) 50 mg tablet as [...] lb 14.3 oz) SpO2 98% BMI 27.36 kg/m General appearance: Well appearing, alert, in no [...] 48 08/22/2020 52 Estimated Glomerular Filtration Rate (mL/min/1.73m ) Date Value 06/29/2024 39 04/20/2024 43 12/29/2023 [...] 0.9 - 1.7 ng/dL Final Impression/Recommendations IMPRESSION Jamel Bonds is a 88 year old here for [...] each office visit. I recommended at least 150 minutes per week of moderate physical activity, such [...] therapy. -- Managed by cardiology (Dr. Jacinto Chatman). -- Repeat FLP order in place. 4. [...] at the time of the patient encounter Arnold Handley APRN.CARDING SUPERVISOR documented in this encounter [facility] 09-16-2024 Note Date of Procedure 09/16/2024. Die Cutter Operator Information Melter Supervisor Oxygen Furnace: . OCT Macula Interpretation Right Eye Abnormal foveal contour. Findings include Epiretinal membrane; Negative for Intraretinal fluid, Cystoid macular edema, Subretinal fluid. Left Eye Abnormal foveal contour. Findings include Epiretinal membrane; Negative for Intraretinal fluid, Cystoid macular edema, Subretinal fluid. Interval Change Right Eye Stable. Left Eye Stable. [facility] 09-16-2024 Note HNO ID: [id number] Author: ROLAND GUTIERREZ MD Service: ? Author Type: Physician Type: Progress Notes Filed: 09/16/2024 11:43 Note Text: Former Dr. 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 Osuna) 2012 - Appears not to be visually significant, asymptomatic - Plan: observe for progression - Retina exam stable today and does not account for vision changes RPE changes OU - Pigment migration - Non-smoker Plan = - Monitor Pseudophakia, both eyes - stable, observe Fuchs dystrophy, both eyes - previously saw Dr. Montanez and determined to be DMEK candidate, but pt does not want surgery and prefers observation; this was 2016 - May be progressing? - Could consider new Mrx since last was in 2020 - See Dr. Montanez again next available for cornea follow up and manifest refraction Ptosis OU - May be visually significant Return me 1 year OCT OU Also see Dr. Montanez but they feel [place] too far I have confirmed and edited as necessary the relevant ophthalmic history, ROS, reviewed the HPI and the neuro exam findings as obtained by others. I have seen and examined this patient. I have discussed the case and the management of this patient's care with the Resident, if applicable. I also have reviewed and agree with the assessment and plan as stated above and agree with all of its relevant components. [facility] 09-16-2024 History of Present illness Narrative Former Dr. 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 Osuna) 2012 - Appears not to be visually significant, asymptomatic - Plan: observe for progression - Retina exam stable today and does not account for vision changes RPE changes OU - Pigment migration - Non-smoker Plan = - Monitor Pseudophakia, both eyes - stable, observe Fuchs dystrophy, both eyes - previously saw Dr. Montanez and determined to be DMEK candidate, but pt does not want surgery and prefers observation; this was 2016 - May be progressing? - Could consider new Mrx since last was in 2020 - See Dr. Montanez again next available for cornea follow up and manifest refraction Ptosis OU - May be visually significant Return me 1 year OCT OU Also see Dr. Montanez but they feel [place] too far I have confirmed and edited as necessary the relevant ophthalmic history, ROS, reviewed the HPI and the neuro exam findings as obtained by others. I have seen and examined this patient. I have discussed the case and the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 anymore PT session. Reports of no back pain and injection really helped. Outcome Measure: 48% back index Short Term Goal: To be met in 2 weeks Goal 1: Pt to be instructed in home exercise program. Jail Goals: To be met in 10 weeks Goal 1: Pt to report independence and compliance with home program. Goal 2: Pt. Will demonstrate normal bilateral LE muscle flexibility to help decrease pain to improve his quality of life. Goal 3: Pt. Will demonstrate 5/5 core strength to allow him to walk/stand for long periods of time to help improve his quality of life. Goal 4: Pt. 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 Pt. Will be discharged from PT and has met all PT goals. I hereby deem this POC medically necessary. Please sign below. Date: documented in this encounterS[facility] [id number] Instructions* Patient Instructions* Arnold Handley APRN.CANDACE - 03/02/2024 1:43 PM EST Plan Continue: Farxiga 10 mg daily Novolog 70/30 -- 38 units with breakfast, 38 units with lunch, and 38 units with dinner After steroid injection and for 2-3 days after increase 42 units with each meal Check your blood sugar 3 times daily and record in log book to bring to all appointments. Bring your meter to all appointments as well. Glucose targets as: Fasting 90-130, before meals 100-130, and bedtime under 150 mg/dL. Notify office for consistently elevated or any low blood sugars <70 Follow up in 4 months [facility] NoteHNO ID: [id number] Author: ARNOLD HANDLEY APRN.CANDACE Service: ? Author Type: Nurse Practitioner Type: Progress Notes Filed: 03/02/2024 14:10 Note Text: Endocrinology Follow-up History of Present Illness Jamel Bonds is a 88 year old male presents today for follow up of DM Type 2 and hypothyroidism. No acute complaints today. HbA1c is 7.6%. He reports he will be getting a steroid injection this . On LT4 25 mcg daily, takes appropriately. Date of Diagnosis: ~1999 Last HbA1c: Hemoglobin A1C (%) Date Value 05/12/2023 8.9 04/10/2022 8.2 04/02/2021 8.4 08/22/2020 7.9 05/16/2020 8.4 10/06/2019 7.8 03/22/2019 8.1 Hemoglobin A1C (POCT) (%) Date Value 03/02/2024 7.6 11/14/2023 7.3 01/03/2023 8.9 08/09/2022 7.9 11/09/2021 7.9 Family history of diabetes: father and maternal [...] cocoa 11-12 PM: Dinner 2 slices of vincentian cheese and ham, Glucerna 5-6 PM: Supper: biggest meal SMBG Frequency of Monitoring: Three times a Day BG Values: 2 week average 189 Hypoglycemia Frequency: none Current DM Related Medications: Current Medications 03/02/2024 DIABETES THERAPIES Medication Dosage Pharm Subclass dapagliflozin propanediol (FARXIGA) 10 mg tablet Take 1 tablet by mouth daily with breakfast. Antihyperglycemic - Sodium Glucose Cotransporter-2 (SGLT2) Inhibitors insulin 70/30 aspart protamine-aspart units/mL (NOVOLOG MIX 70-30) 100 unit/mL (70-30) pen INJECT 38 UNITS [...] mouth once daily. Beta Blockers Cardiac Selective ANTICOAGULANTS Medication Dosage Pharm Subclass heparin 100 unit/mL syrg NURSING USE ONLY: USE FOR IMPLANTED VASCULAR ACCESS DEVICE (IVAD) FLUSH. AMBULATORY/OUTPATIENT: PLEASE REORDER UPON HOSPITAL DISCHARGE May [...] in use. Pharmaceutical Adjuvant - Parenteral Vehicles baclofen (LIORESAL) 10 mg tablet Skeletal Muscle Relaxant - Central Muscle Relaxants blood sugar diagnostic (BLOOD GLUCOSE TEST) test strip Check glucose 3 times daily Dx: E11.65 Medical Supplies and DME - Blood Glucose Tests Blood-Glucose Meter (TRUE METRIX GLUCOSE METER) Check glucose 3 times daily Dx: E11.65 Medical Supplies and DME - Glucose Monitoring Test Supplies mnnbrbw-yztfphcmn-dpxsnqh D3 (OS-BESSY 500+D) 500 mg(1,250mg) -200 unit per tablet Minerals and Electrolytes - Calcium Replacement/Vitamin D Combinations Cholecalciferol, Vitamin D3, 50 mcg (2,000 unit) cap Take 2,000 mg by mouth once daily. Vitamins - D Derivatives citalopram hydrobromide (CELEXA) 10 mg tablet Take 10 mg by mouth once daily. Antidepressant - Selective Serotonin Reuptake Inhibitors (SSRIs) fluticasone (FLONASE) 50 mcg/actuation nasal spray 1 [place] as needed. Nasal Corticosteroids Insulin Reasnor, Disposable, (UNIFINE PENTIPS PLUS) 32 gauge x 5/32 Use with insulin pens 3 times daily Dx: E11.65 Medical Supplies and DME - Insulin Reasnor-Syringes and Admin Supplies Lactobac no.41-Bifidobact no.7 70 [...] Antihistamines - 2nd Generation magnesium oxide (MAG-OX) (more content not included)...[facility]12-10-2024 History of Present illness Narrative* Arnold Handley, JOSE.CARDING SUPERVISOR - 03/02/2024 1:40 PM EST Endocrinology Follow-up History of Present Illness Jamel Bonds is a 88 year old male presents today for follow up of DM Type 2 and hypothyroidism. No acute complaints today. HbA1c is 7.6%. He reports he will be getting a steroid injection this . On LT4 25 mcg daily, takes appropriately. Date of Diagnosis: ~1999 Last HbA1c: Hemoglobin A1C (%) Date Value 05/12/2023 8.9 04/10/2022 8.2 04/02/2021 8.4 08/22/2020 7.9 05/16/2020 8.4 10/06/2019 7.8 03/22/2019 8.1 Hemoglobin A1C (POCT) (%) Date Value 03/02/2024 7.6 11/14/2023 7.3 01/03/2023 8.9 08/09/2022 7.9 11/09/2021 7.9 Family history of diabetes: father and maternal [...] cocoa 11-12 PM: Dinner 2 slices of vincentian cheese and ham, Glucerna 5-6 PM: Supper: biggest meal SMBG Frequency of Monitoring: Three times a Day BG Values: 2 week average 189 Hypoglycemia Frequency: none Current DM Related Medications: Current Medications 03/02/2024 DIABETES THERAPIES Medication Dosage Pharm Subclass dapagliflozin propanediol (FARXIGA) 10 mg tablet Take 1 tablet by mouth daily with breakfast. Antihyperglycemic - Sodium Glucose Cotransporter-2 (SGLT2) Inhibitors insulin 70/30 aspart protamine-aspart units/mL (NOVOLOG MIX 70-30) 100 unit/mL (70-30) pen INJECT 38 UNITS [...] mouth once daily. Beta Blockers Cardiac Selective ANTICOAGULANTS Medication Dosage Pharm Subclass heparin 100 [...] in use. Pharmaceutical Adjuvant - Parenteral Vehicles baclofen (LIORESAL) 10 mg tablet Skeletal Muscle Relaxant - Central Muscle Relaxants blood sugar diagnostic (BLOOD GLUCOSE TEST) test strip Check glucose 3 times daily Dx: E11.65 Medical Supplies and DME - Blood Glucose Tests Blood-Glucose Meter (TRUE METRIX GLUCOSE METER) Check glucose 3 times daily Dx: E11.65 Medical Supplies and DME - Glucose Monitoring Test Supplies wavyzdi-nmdefaqfg-qqpkmiu D3 (OS-BESSY 500+D) 500 mg(1,250mg) -200 unit per tablet Minerals and Electrolytes - Calcium Replacement/Vitamin D Combinations Cholecalciferol, Vitamin D3, 50 mcg (2,000 unit) cap Take 2,000 mg by mouth once daily. Vitamins - D Derivatives citalopram hydrobromide (CELEXA) 10 mg tablet Take 10 mg by mouth once daily. Antidepressant - Selective Serotonin Reuptake Inhibitors (SSRIs) fluticasone (FLONASE) 50 mcg/actuation nasal spray 1 [place] as needed. Nasal Corticosteroids Insulin Reasnor, Disposable, (UNIFINE PENTIPS PLUS) 32 gauge x 5/32 Use with insulin pens 3 times daily Dx: E11.65 Medical Supplies and DME - Insulin Reasnor-Syringes and Admin Supplies Lactobac no.41-Bifidobact no.7 70 [...] Antacid - Magnesium melatonin 1 mg tablet melatonin 10 mg 1 tab at bedtime Hypnotics - Melatonin - Single Agents multivit-min/FA/lycopen/lutein [...] day by oral route. Gastric Acid Secretion Tool Operator - Proton Pump Inhibitors (PPIs) tamsulosin (FLOMAX) 0.4 mg Take 1 capsule by mouth once daily. Prostatic Hypertrophy Agent - [id number] Antagonists traMADol (ULTRAM) 50 mg tablet Analgesic Opioid Agonists triamcinolone acetonide (KENALOG) 0.1 % cream triamcinolone acetonide 0.1 % topical cream APPLY A THIN LAYER TO THE AFFECTED AREA(S) BY TOPICAL ROUTE 2 TIMES PER DAY Dermatological - Glucocorticoid Past History, Medications, Allergies [...] No Drug use: No Review of Systems Answers submitted by the patient for this visit: Core Review of Systems (Submitted on 02/29/2024) Fever : No Night sweats: No Recent unintentional weight change: No Nasal Congestion: No Hearing Loss: Yes Vision Disturbance: No A cough: No Difficulty Breathing?: No Chest pain: No Irregular heartbeat: No Leg Swelling: No Nausea: No Diarrhea: No Black tarry stools: No Difficulty Urinating?: No Awaken at Night More Than Once to Urinate?: Yes Joint pain or stiffness: Yes Muscle aches: No Leg or Foot Discomfort at Night?: No A rash: No Dizziness: No Headaches: No Memory Loss: No Seizures: No Physical examination BP 151/66 Pulse 60 Wt 80.6 kg (177 lb 11.1 oz) BMI 27.02 kg/m General appearance: Well appearing, alert, in no acute distress, well-hydrated, well nourished. Skin: Skin color, texture, turgor normal, no suspicious rashes or lesions HEART: normal rate LUNGS: unlabored, normal respiratory rate EXTREMITIES No deformities, No skin discoloration and No edema NEURO: Speech normal, mental status intact, no tremor noted. Previous Laboratory Results LABS Glucose (mg/dL) Date Value 12/29/2023 99 12/01/2023 124 09/08/2023 198 04/02/2021 197 02/19/2021 168 08/22/2020 147 Potassium (mmol/L) Date Value 12/29/2023 5.0 04/02/2021 4.5 Sodium (mmol/L) Date Value 12/29/2023 134 12/01/2023 138 09/08/2023 139 04/02/2021 137 02/19/2021 140 08/22/2020 142 Chloride (mmol/L) Date Value 12/29/2023 100 12/01/2023 98 09/08/2023 100 04/02/2021 98 02/19/2021 100 08/22/2020 102 CO2 (mmol/L) Date Value 12/29/2023 30 12/01/2023 28 09/08/2023 31 04/02/2021 29 02/19/2021 29 08/22/2020 30 Creatinine (mg/dL) Date Value 12/29/2023 1.70 12/01/2023 1.74 09/08/2023 1.82 04/02/2021 1.39 02/19/2021 1.41 08/22/2020 1.31 BUN (mg/dL) Date Value 12/29/2023 39 12/01/2023 39 09/08/2023 39 04/02/2021 25 02/19/2021 32 08/22/2020 28 Anion Gap (mmol/L) Date Value 12/29/2023 4 12/01/2023 12 09/08/2023 8 04/02/2021 10 02/19/2021 11 08/22/2020 10 Calcium (mg/dL) Date Value 04/02/2021 9.5 02/19/2021 9.5 08/22/2020 9.7 Calcium, Total (mg/dL) Date Value 12/29/2023 9.6 12/01/2023 9.6 09/08/2023 10.1 eGFR- (no units) Date Value 04/02/2021 59 02/19/2021 58 08/22/2020 >60 eGFR-All Other Races (.) Date Value 04/02/2021 49 02/19/2021 48 08/22/2020 52 Estimated Glomerular Filtration Rate (mL/min/1.73m ) Date Value 12/29/2023 39 12/01/2023 37 09/08/2023 36 ALT (U/L) Date Value 12/29/2023 13 12/01/2023 12 09/08/2023 21 04/02/2021 27 02/19/2021 26 08/22/2020 33 TSH Date Value Ref Range Status 12/29/2023 2.600 0.270 - 4.200 mIU/L Final 05/12/2023 3.010 0.270 - 4.200 mIU/L Final 04/10/2022 2.420 0.270 - 4.200 mIU/L Final Free T4 Date Value Ref Range Status 04/02/2021 1.3 0.9 - 1.7 ng/dL Final 05/16/2020 1.2 0.9 - 1.7 ng/dL Final 12/10/2018 1.1 0.9 - 1.7 ng/dL Final Impression/Recommendations IMPRESSION Jamel Bonds is a 88 year old here for 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 RECOMMENDATIONS: 1. Glycemic control: Target HbA1C is less than 7.0% per ADA guidelines. Goal for him given age/comorbidities is <8%. This patient is at target, with significant improvement since taking insulin prior to meals. Will provide instructions for insulin adjustment after steroid injection. Plan Continue: Farxiga 10 mg daily Novolog 70/30 -- 38 units with breakfast, 38 units with lunch, and 38 units with dinner After steroid injection and for 2-3 days after increase 42 units with each meal Check your blood sugar 3 times daily [...] diabetes is 130/80. -- This patient is not at target on current regimen. I will defer management of this to their primary care physician who is managing. 3. Lipids: Target LDL cholesterol in patients [...] risk factor for coronary heart disease LDL Cholesterol Date Value Ref Range Status 05/12/2023 55 [...] therapy. -- Managed by cardiology (Dr. Jacinto Chatman). 4. Nephropathy screening: Annual measurement of urine [...] no history of retinopathy. -- Last seen 08/2023 6. Hypothyroidism: -- Euthyroid. -- Continue LT4. Patient to continue to follow up with his PCP and with other consultants regarding his other medical problems. Any part of this document that has been added/copied & pasted from other documents has been reviewed for accuracy and updated as appropriate at the time of the patient encounter Arnold Handley APRN.CARDING SUPERVISOR documented in this [facility]12[facility] History of Present illness Narrative* Elías Franz, PT - 03/01/2024 1:00 PM EST Physical Therapy Evaluation Visit Patient Name: Jamel Bonds Today's Date: 03/01/2024 Encounter Diagnoses Name Primary? Lumbar paraspinal muscle spasm Yes Visit number: 1 Timed Code Treatment Minutes: 60 minutes Total Treatment Time: 60 minutes Time In: 1300 Time Out: 1400 History: Pt. Presents to PT with c/c of bilateral SI joint pain which started getting worse 3 months ago. Pt. 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 injection scheduled on 03/04 with pain management. Denies N/T. Pt. Reports his back pain will be so bad hehas difficulty walking. Pt. Performed standing extension to help decrease his back pain. Precautions: PACEMAKER Subjective Pain: 0/10 sitting; worst 5/10 with sit to stand Objective: PT Evaluation (03/01/24) Lumbar ROM: grossly WFL in all planes Flexibility: mild bilateral hamstring tightness, moderate bilateral piriformis muscle tightness Palpation: TTP bilateral SIJ Core 4+/5 Treatment: PT evaluation (20 minutes) Education: HEP education with demonstration, Educated on Eval Findings and POC Manual Therapy: (12 minutes) LE PROM/stretching hamstring/piriformis,Passive ROM, Joint mobilization, Soft Tissue Mobilization, Myofascial Release, Muscle Energy Technique, Neural Mobilization, Myofascial Cupping, Dry Needling, IASTM, and Scar mobilization Therapeutic Exercise: (14 minutes) exercises in grid; Strength, Endurance, Flexibility, ROM, HEP, Neural Mobilization, Power, and Core Stability Therapeutic Activity: Exercises to improve dynamic activities, functional tasks, functional mobility to return to prior activity level Neuromuscular re-education: Balance Training, Muscle Facilitation, Dynamic Stability, Core Stabilization, and Blood Flow Restriction Training (BFRT) Modalities: Heat, Ice, Electrical Stimulation, Ultrasound, Cervical Mechanical Traction, Lumbar Mechanical Traction, Iontophoresis, and Fluidotherapy Assessment: Pt. Has participated in 1 PT session with start of POC on 03/01 for bilateral low back pain. Pt will benefit from skilled PT services. Outcome Measure: 48% back index Short Term Goal: To be met in 2 weeks Goal 1: Pt to be instructed in home exercise program. Jail Goals: To be met in 10 weeks Goal 1: Pt to report independence and compliance with home program. Goal 2: Pt. Will demonstrate normal bilateral LE muscle flexibility to help decrease pain to improve his quality of life. Goal 3: Pt. Will demonstrate 5/5 core strength to allow him to walk/stand for long periods of time to help improve his quality of life. Goal 4: Pt. 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 Pt will benefit from skilled PT for 2x/week from 03/01/24 to 05/10/24 to address the above impairments. I hereby deem this POC medically necessary. Please sign below. Date: documented in this [facility]12-04-2024 Evaluation note* Diagnosis Onset Date Resolution Status Admit Date Nasopharyngitis acute acute Dec ember 2023 11:03am Arthritis of lumbosacral spine acute March 22, 2024 11:04am Other chronic pain acute Decemb er 2023 11:04am Sacroiliitis acute February 11:04am Scoliosis acute March 22, 2024 11:04am Arthritis of lumbosacral spine acute May 25, 2024 10:46am Other chronic pain acute May 25, 2024 10:46am Sacroiliitis acute May 25, 10:46am [facility] Work Phone: 1(499) 940-100112-03-2024 Evaluation note* Diagnosis Onset Date Resolution Status Admit Date Arthritis of lumbosacral spine acute February 24, 2024 10:25am Other chronic pain acute Decemb er 2023 10:25am Sacroiliitis acute February 10:25am Scoliosis acute February 24, 2024 10:25am Nasopharyngitis acute acute Dec emb2023 11:03am Arthritis of lumbosacral spine acute March 22, 2024 11:04am Other chronic pain acute Decemb er 2023 11:04am Sacroiliitis acute February 11:04am Scoliosis acute March 22, 2024 11:04am [facility] Work Phone: 1(638) 382-713211-06-2024 Evaluation note* Diagnosis Onset Date Resolution Status Admit Date Arthritis of lumbosacral spine acute January 28, 2024 3:17pm Other chronic pain acute Novemb er 2023 3:17pm Sacroiliitis acute January 3:17pm Scoliosis acute January 28, 2024 3:17pm [facility] Work Phone: 1(680) 144-682611-05-2024 Telephone encounter Note* Telephone Encounter - Heena Melendez MA - 01/27/2024 7:49 AM EST Received the following message: Patient comment: [facility] in [place] said they didn't receive the script in April for the year refills. Please resend the script to them. Thank you. Patients last Endocrinology visit occurred Last encounter Visit on 11/14/2023 (with Arnold Handley) Follow-up evaluation has been established Upcoming Endocrinology Appointments - Next 365 Days Visit Type Date Time Department EST ZAINAB PATIENT 03/02/2024 1:30 PM ENDO [facility] . Requested Prescriptions Pending Prescriptions Disp Refills insulin 70/30 aspart protamine-aspart units/mL (NOVOLOG MIX 70-30) 100 unit/mL (70-30) pen 45 mL 11 Sig: INJECT 38 UNITS WITH BREAKFAST, 38 WITH LUNCH, 38 UNITS WITH DINNER SUBCUTANEOUSLY If patient is due for an appointment please route to provider for refill consideration and also to the endo scheduling pool. [facility]11-05-[facility] Miscellaneous Notes* Telephone Encounter - Heena Melendez MA - 01/27/2024 7:49 AM EST Received the following message: Patient comment: [facility] in [place] said they didn't receive the script in April for the year refills. Please resend the script to them. Thank you. Patients last Endocrinology visit occurred Last encounter Visit on 11/14/2023 (with Arnold Handley) Follow-up evaluation has been established Upcoming Endocrinology Appointments - Next 365 Days Visit Type Date Time Department EST ZAINAB PATIENT 03/02/2024 1:30 PM [facility] . Requested Prescriptions Pending Prescriptions Disp Refills insulin 70/30 aspart protamine-aspart units/mL (NOVOLOG MIX 70-30) 100 unit/mL (70-30) pen 45 mL 11 Sig: INJECT 38 UNITS WITH BREAKFAST, 38 WITH LUNCH, 38 UNITS WITH DINNER SUBCUTANEOUSLY If patient is due for an appointment please route to provider for refill consideration and also to the [facility] scheduling pool. documented in this encounterK[facility]11-01-2024 Telephone encounter Note * Telephone Encounter - SARAH Rodriguez - 01/23/2024 11:58 AM EDT Spoke with pt's , discussed results.. awaiting appt with Dr. Ervin [facility] [id number] Miscellaneous Notes* Telephone Encounter - SARAH Rodriguez - 01/23/2024 11:58 AM EDT Spoke with pt's , discussed results.. awaiting appt with Dr. Ervin * Telephone Encounter - Mallika Vitale - 01/23/2024 11:40 AM EDT Patient's called regarding Xrays done at [facility]. Patient is calling 's office to make sure they received them. Patient's Milagros would like a call regarding what the Xrays said. Please advise [phone]. documented in this encounterSoutheast [facility] [id number] Telephone encounter Note* Telephone Encounter - Mallika Vitale - 01/23/2024 11:40 AM EDT Patient's called regarding Xrays done at [facility]. Patient is calling 's office to make sure they received them. Patient's Milagros would like a call regarding what the Xrays said. Please advise [phone]. [facility] [id number] History of Present illness Narrative* SARAH Rodriguez - 01/19/2024 9:30 AM EDT Images from the original note were not included. HISTORY OF PRESENT ILLNESS: EST PT Jamel Bonds is an 88 y.o. @ male. (EST PT) NEW COMPLAINT, B/L HIP / LOW BACK PAIN ; SYMPTOMS FOR A FEW MONTHS ; PROGRESSIVELY GETTING WORSE - DENIES ANY INJURY XRAYS DONE TODAY, 01/19/24 IN EPIC PAIN IS INTERMITTENT WHEN STANDING / WITH ACTIVITY / MOVEMENT - STATES PAIN IS DIFFUSE ACROSS HIS LOWER BACK / LATERAL HIPS - SOME RADIATING PAIN DOWN HIS LEGS W/ N/T. NOTES GOOD ROM ; DENIES ANY WEAKNESS - USES A CANE TO AMBULATE. TAKES TYLENOL ARTHRITIS PRN / ICES - WITH RELIEF. TAKES XARELTO 15MG - H/O A FIB ALLERGIES: Allergies Allergen Reactions Penicillin G Rash HOME MEDICATIONS: Current Outpatient Medications Medication Instructions atorvastatin (Lipitor) 40 MG tablet Every 24 hours dapagliflozin (Farxiga) 5 MG Take by mouth. digoxin (Lanoxin) 125 MCG tablet as directed Orally insulin NPH-insulin regular (NovoLIN 70/30) (70-30) 100 UNIT/ML injection 24 units in AM, 11 units PM Subcutaneous leuprolide, 1-month, (Lupron Depot) 7.5 MG injection No dose, route, or frequency recorded. levothyroxine (Levoxyl) 25 MCG tablet Every 24 hours losartan (Cozaar) 50 MG tablet Every 24 hours metoprolol succinate XL (Toprol XL) 25 MG 24 hr tablet Every 24 hours omeprazole OTC (PriLOSEC OTC) 20 MG EC tablet Every 24 hours rivaroxaban (Xarelto) 15 MG tablet Every 24 hours tamsulosin (FLOMAX) 0.4 mg, Daily PHYSICAL EXAM: Hip Musculoskeletal Exam Gait Gait is normal. Assistive device: cane (balance.) Inspection Leg length disparity: no discrepancy Right Erythema: none Ecchymosis: none Edema: none Deformity: none Left Erythema: none Ecchymosis: none Edema: none Deformity: none Palpation Right Right hip palpation is normal. Increased warmth: none Tenderness: present Lower lumbar region pain: moderate Lower lumbar region pain comment: SI JOINT Left Increased warmth: none Tenderness: present Lower lumbar region pain: moderate Lower lumbar region pain comment: SI JOINT Range of Motion Right Right hip range of motion is within functional limits. Active ROM: normal. Passive ROM: normal. Left Left hip range of motion is within functional limits. Active ROM: normal. Passive ROM: normal. Strength Right Right hip strength is normal. Extension: 5/5. Flexion: 5/5. Internal rotation: 5/5. External rotation: 5/5. Adduction: 5/5. Abduction: 5/5. Left Left hip strength is normal. Extension: 5/5. Flexion: 5/5. Internal rotation: 5/5. External rotation: 5/5. Adduction: 5/5. Abduction: 5/5. Neurovascular Right Right hip neurovascular exam is normal. Pulses - PT: normal Posterior tibial: 2+ Left Left hip neurovascular exam is normal. Pulses - PT: normal Posterior tibial: 2+ Special Tests Right TRACY test (right): positive Left TRACY test (left): positive Special tests additional comments: + gaenslen's test. General Constitutional: appears stated age Labored breathing: no Psychiatric: normal mood and affect Neurological: alert and oriented x3 Skin: intact Lymphadenopathy: none Vitals: Body mass index is 26.76 kg/m . Tobacco Use: Low Risk (01/19/2024) Patient History Smoking Tobacco Use: Never Smokeless Tobacco Use: Never Passive Exposure: Not on file Alcohol Use: Not At Risk (08/29/2022) Received from Qik, [facility] AUDIT-C Frequency of Alcohol Consumption: Never Average Number of Drinks: Patient does not drink Frequency of Binge Drinking: Never IMAGING: Procedures Orders Placed This Encounter Procedures XR lumbar spine 4+ views w flexion extension Standing Status: Future Standing Expiration Date: 01/18/2025 Order Specific Question: Reason for exam: Answer: PAIN XR sacroiliac joints 1 or 2 views Standing Status: Future Standing Expiration Date: 01/18/2025 Order Specific Question: Reason for exam: Answer: PAIN Ambulatory referral to Pain Medicine Standing Status: Future Standing Expiration Date: 07/19/2024 Referral Priority: Routine Referral Type: Consultation Referral Reason: Specialty Services Required Referred to Provider: Lila Ervin MD Requested Specialty: Pain Medicine Number of Visits Requested: 1 ASSESSMENT: ICD-10-CM 1. Acute right hip pain M25.551 2. Sacroiliac joint pain M53.3 XR sacroiliac joints 1 or 2 views Ambulatory referral to Pain Medicine 3. Chronic bilateral low back pain without sciatica M54.50 XR lumbar spine 4+ views w flexion extension G89.29 Ambulatory referral to Pain Medicine PLAN: Recommend Xray l/s spine and SI joints with [facility]. Referral to Pain management for eval of SI joint injection.. pt has no pain in hip joint on rom.. Pt has pain to palpation and stressing of SI joint.. pt would consider injection to help with symptoms as he is very active. Questions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 Subjective Jamel Bonds is a 88 y.o. male Chief Complaint Follow-up HPI Patient is here for follow-up. He is a former patient of Dr. Franklin. Had a history of sick sinus syndrome with permanent pacemaker implantation, paroxysmal atrial fibrillation noted mainly on devicecheck, previous history of mild atherosclerotic coronary artery disease based on heart cath back [id number] with previous documentation of mild LV systolic function that improved with medical therapy last echocardiogram showed LVEF around 50-55%. Since the last time the patient was seen he remains reasonably active. Describes some back pain but denies chest pain, palpitation, lightheadedness, dizziness or syncope. His recent device check all noted and reviewed with him. I reviewed his recent lab work and his creatinine is 1.6. Assessment 1. Sick sinus syndrome with permanent pacemaker implantation. Recent device check noted and reviewed with him 2. Paroxysmal atrial fibrillation noted mainly on device check completely asymptomatic 3. Long-term anticoagulation due to A-fib. His creatinine is 1.6 his dose of Xarelto should be 15 mg 4. History of mild nonischemic cardiomyopathy improved medical therapy last ejection fraction around 50-55% 5. Mild atherosclerotic coronary artery disease noted on heart cath back in 2021 6. Hyperlipidemia on treatment s 3. Stage III chronic coronary artery disease Plan Review of Systems All other systems reviewed and are negative. Vitals: 10/02/24 1429 BP: 108/62 BP Location: Right arm Patient Position: Sitting Pulse: 68 Weight: 79.8 kg (176 lb) Height: 1.727 m (5' 8 ) Objective Physical Exam Constitutional: Appearance: Normal appearance. HENT: Nose: Nose normal. Neck: Vascular: No carotid bruit. Cardiovascular: Rate and Rhythm: Normal rate. Pulses: Normal pulses. Heart sounds: Normal heart [...] normal. Allergies Penicillins Current Medications Current Outpatient Medications: atorvastatin (Lipitor) 40 mg tablet, Take 1 tablet (40 mg) by mouth once daily at bedtime., Disp: 90 tablet, Rfl: 3 digoxin (Lanoxin) 125 MCG tablet, Take 1 tablet (125 mcg) by mouth once daily., Disp: 90 tablet, Rfl: 3 FLUoxetine (PROzac) 20 mg capsule, Take 1 capsule (20 mg) by mouth once daily., Disp: , Rfl: leuprolide, 3-month, (Lupron Depot) 22.5 mg injection, Inject 22.5 mg into the muscle every 3 months., Disp: , Rfl: levothyroxine (Synthroid, Levoxyl) 25 mcg tablet, Take 1 tablet (25 mcg) by mouth once daily in themorning. Take before meals., Disp: 90 tablet, Rfl: 3 losartan (Cozaar) 50 mg tablet, Take 1 tablet (50 mg) by mouth once daily., Disp: 90 tablet, Rfl: 3 metoprolol succinate XL (Toprol-XL) 25 mg 24 hr tablet, Take 1 tablet (25 mg) by mouth once daily.,Disp: 90 tablet, Rfl: 3 NovoLOG Mix 70-30FlexPen U-100 100 unit/mL (70-30) injection, Inject under the skin 3 times a day.,Disp: , Rfl: ofloxacin (Ocuflox) 0.3 % ophthalmic solution, Administer into affected eye(s)., Disp: , Rfl: omeprazole (PriLOSEC) [address] capsule, Take 1 capsule (20 mg) by mouth once daily., Disp: , Rfl: tamsulosin (Flomax) 0.4 mg 24 hr capsule, Take 1 capsule (0.4 mg) by mouth once daily., Disp: , Rfl: rivaroxaban (Xarelto) 15 mg tablet, Take 1 tablet (15 mg) by mouth 2 times daily (morning and late afternoon). Take with food., Disp: 180 tablet, Rfl: 3 Assessment/Plan 1. Sick sinus syndrome (Multi) Follow Up In Cardiology Follow Up In Cardiology 2. Pacemaker 3. Paroxysmal atrial fibrillation (Multi) rivaroxaban (Xarelto) 15 mg tablet DISCONTINUED: Xarelto 20 mg tablet 4. High risk medication use 5. Mixed hyperlipidemia 6. Essential hypertension 7. clother in current use of anticoagulant therapy 8. Mild coronary artery disease 9. LV dysfunction 10. BMI 26.0-26.9,adult 11. Stage 3a chronic kidney disease (Multi) Scribe Attestation By signing my name below, I, Kelly Rodriguez LPN attest that this documentation has been prepared [...] exam, discussion and plan. documented in this [facility] Work Phone: [phone] 744-380510-02-2024 Instructions* Patient Instructions* Jennifer Nieves LPN - 12/24/2023 2:30 PM EDT Please bring all medicines, vitamins, and herbal supplements with you when you come to the office. Prescriptions will not be filled unless you are compliant with your follow up appointments or have a follow up appointment scheduled as per instruction of your physician. Refills should be requested at the time of your visit. BMI was above normal measurement. Current weight: 79.8 kg (176 lb) Weight change since last visit (-) denotes wt loss 1 lbs Weight loss needed to achieve BMI 25: 11.9 Lbs Weight loss needed to achieve BMI 30: -20.9 Lbs Provided instructions on dietary changes. Pacemaker/Defibrillator follow up per routine * Attachments The following attachments cannot be sent through Care Everywhere. * Heart Healthy Diet (Irish) documented in this [facility] Work Phone: [phone] 454-184508-28-2024 History of Present illness Narrative* Khoa Pittman DPM - 11/19/2023 10:00 AM EDT HPI: Jamel Bonds presents today with the right great toe overlapping on the right 2nd toe. Patient also c/o of skin irritation (itching and burning) on both feet. Patient has been soaking feet in Epsom salts. Patient denies any pain in either feet. He has concerns for arthritis in the great toes. Hestates that he does have some pain in the left great toe. Patient is diabetic, for 15 years. Patient denies any wounds, sores on the feet. Patient does not have problems with burning, tingling in thefeet, but he does notice some symptoms at night. No other concerns. Exam: General Examination: GENERAL APPEARANCE: awake, aware of surroundings, in no acute distress Vascular: DORSALIS PEDIS PULSE: 1/4 left 0/4 right POSTERIOR TIBIAL PULSE: 0/4, bilaterally TEMPERATURE GRADIENT: warm to cool EDEMA: mild to the ankle bilateral CAPILLARY FILLING TIME(sec): capillary fill inact bilateral digits less than 3 secs Neurologic: VIBRATORY: absent to the hallux IPJ bilateral SEMMES-EMILIE 5.07 MONOFILAMENT: intact to the ball of the foot and toes Dermatologic: SKIN FINDINGS: varicosities to the bilateral foot HYPERKERATOSIS: none NAIL PATHOLOGY: digits 1-5 bilateral are intact, mild incurvated to the bilateral hallux nails SKIN PATHOLOGY: texture, turgor, hair growth, within normal limits Orthopedic: FOOT MORPHOLOGY: neutral JOINT RANGE OF MOTION: without pain or crepitus to the foot and ankle bilateral. There is stiffnessin the great toe joints bilateral DEFORMITIES: hallux valgus, hallux rigidus bilateral PAIN ELICITED WITH PALPATION OF: mild pain with palpation over the left great toe joint. 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 A Diabetic Foot Screening Exam was performed and the patient was educated on the foot complications related to Diabetes. A Handout Instruction Sheet was dispensed to the patient with guidelines for home preventative foot care and what signs and symptoms to watch for. Instructed to contact our office if any foot problems develop before next visit. 2. Patient was instructed on the continued importance of diabetic foot care along with proper diet and keeping their blood sugar under control to prevent complications. 3. Encouraged patient yearly visits for a diabetic foot check or as needed based on their pain and symptoms. Peripheral Arterial Disease: We did discuss ordering a PVR due to the decreased palpable pulses in the foot/leg. This order willbe sent to [facility] and patient was instructed on further scheduling. Once results are received, we will contact the patient with the results. We did discuss possible referral to vascular surgery based on the findings. It was discussed in detail with the patient proper caring for the vascular compromised foot. The fact that they have compromised blood flow put the patient at , risk for infection/gangrene/amputation. The patient should not walk barefoot. Shoe gear should fit properly and socks should be worn with shoes. Exercise is very important to prevent worsening of the disease process but before performing an exercise program, should check with their family physician first. If any skin lesions are noted, they are instructed to contact the office immediately. Peripheral Neuropathy: I had a long discussion with the patient about possible causes, conservative and medical treatment in regards to the neuropathy symptoms. Advised patient that damaged from neuropathy cannot be reversed but controlling the underlying cause will help to prevent worsening of symptoms over time. Discussed topical [id number]-[id number] medication such as capsaicin or Aspercreme. Prescription strength topical creams may also be an option as these cause less side effects and do not interact with other medications. Also discussed with patient the oral options for treatment for neuropathy including gabapentin and Lyrica. We discussed the possible side effects with each of these medications and course of treatment. We also discussed use of a topical anti-inflammatory medication. This will be prescribed through [facility] formulation [facility]. Advised them on the process of obtaining a prescription through [facility] and that they will be contacted by the pharmacy regarding coverage and out of pocket cost. Patient was instructed on application and use of the medication and a patient handout was dispensed. documented in this encounterSoutheast Missouri [facility] Treatment [id number] Instructions* Patient Instructions* Arnold Handley APRN.CANDACE - 11/14/2023 2:11 PM EDT Plan Continue: Farxiga 10 mg [...] elevated or any low blood sugars <70 Obtain labs next month Follow up in 4 months [facility] History of Present illness Narrative* Arnold Handley APRN.CANDACE - 11/14/2023 2:00 PM EDT Endocrinology Follow-up History of Present Illness Jamel Bonds is a 87 year old male presents today for follow up of DM Type 2 and hypothyroidism. Patient reports switching how he was taking his insulin to prior to meals (as discussed at [facility]). His HbA1c has improved from 8.9% to 7.3%. No acute complaints today. On LT4 25 mcg daily, takes appropriately. Date of Diagnosis: ~1999 Last HbA1c: Hemoglobin A1C (%) Date Value 05/12/2023 8.9 04/10/2022 8.2 07/10/2021 8.4 04/02/2021 8.4 08/22/2020 7.9 05/16/2020 8.4 10/06/2019 7.8 03/22/2019 8.1 Hemoglobin A1C (POCT) (%) Date Value 11/14/2023 7.3 01/03/2023 8.9 08/09/2022 7.9 11/09/2021 7.9 12/29/2020 8.3 Family history of diabetes: father and maternal [...] cocoa 11-12 PM: Dinner 2 slices of vincentian cheese and ham, Glucerna 5-6 PM: Supper: biggest meal SMBG Frequency of Monitoring: Three times a Day BG Values: 2 week average 163, range 91-254 Hypoglycemia Frequency: none Current DM Related Medications: Current Medications 11/14/2023 DIABETES THERAPIES Medication Dosage Pharm Subclass dapagliflozin propanediol (FARXIGA) 10 mg tablet Take 1 tablet by mouth daily with breakfast. Antihyperglycemic - Sodium Glucose Cotransporter-2 (SGLT2) Inhibitors insulin 70/30 aspart protamine-aspart units/mL (NOVOLOG MIX 70-30) 100 unit/mL (70-30) pen INJECT 38 UNITS [...] mouth once daily. Beta Blockers Cardiac Selective ANTICOAGULANTS Medication Dosage Pharm Subclass heparin 100 [...] in use. Pharmaceutical Adjuvant - Parenteral Vehicles baclofen (LIORESAL) 10 mg tablet Skeletal Muscle Relaxant - Central Muscle Relaxants blood sugar diagnostic (BLOOD GLUCOSE TEST) test strip Check glucose 3 times daily Dx: E11.65 Medical Supplies and DME - Blood Glucose Tests Blood-Glucose Meter (TRUE METRIX GLUCOSE METER) Check glucose 3 times daily Dx: E11.65 Medical Supplies and DME - Glucose Monitoring Test Supplies [id number]-byvmbtk D3 (OS-BESSY 500+D) 500 mg(1,250mg) -200 unit per tablet Minerals and Electrolytes - Calcium Replacement/Vitamin D Combinations Cholecalciferol, Vitamin D3, 50 mcg (2,000 unit) cap Take 2,000 mg by mouth once daily. Vitamins - D Derivatives citalopram hydrobromide (CELEXA) 10 mg tablet Take 10 mg by mouth once daily. Antidepressant - Selective Serotonin Reuptake Inhibitors (SSRIs) fluticasone (FLONASE) 50 mcg/actuation nasal spray 1 [place] as needed. Nasal Corticosteroids Insulin Reasnor, Disposable, (UNIFINE PENTIPS PLUS) 32 gauge x 5/32 Use with insulin pens 3 times daily Dx: E11.65 Medical Supplies and DME - Insulin Reasnor-Syringes and Admin Supplies Lactobac no.41-Bifidobact no.7 70 [...] Antacid - Magnesium melatonin 1 mg tablet melatonin 10 mg 1 tab at bedtime Hypnotics - Melatonin - Single Agents multivit-min/FA/lycopen/lutein [...] day by oral route. Gastric Acid Secretion Tool Operator - Proton Pump Inhibitors (PPIs) tamsulosin (FLOMAX) 0.4 mg Take 1 capsule by mouth once daily. 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 Physical examination BP 137/60 Pulse 60 Wt 79.8 kg (175 lb 14.8 oz) BMI 26.76 kg/m General appearance: Well appearing, alert, in no acute distress, well-hydrated, well nourished. Skin: Skin color, texture, turgor normal, no suspicious rashes or lesions HEART: normal rate LUNGS: unlabored, normal respiratory rate EXTREMITIES No deformities, No skin discoloration and No edema NEURO: Speech normal, mental status intact, no tremor noted. Previous Laboratory Results LABS Glucose (mg/dL) Date Value 09/08/2023 198 05/12/2023 107 11/11/2022 137 04/02/2021 197 02/19/2021 168 08/22/2020 147 Potassium (mmol/L) Date Value 09/08/2023 5.2 04/02/2021 4.5 Sodium (mmol/L) Date Value 09/08/2023 139 05/12/2023 138 11/11/2022 139 04/02/2021 137 02/19/2021 140 08/22/2020 142 Chloride (mmol/L) Date Value 09/08/2023 100 05/12/2023 98 11/11/2022 100 04/02/2021 98 02/19/2021 100 08/22/2020 102 CO2 (mmol/L) Date Value 09/08/2023 31 05/12/2023 29 11/11/2022 26 04/02/2021 29 02/19/2021 29 08/22/2020 30 Creatinine (mg/dL) Date Value 09/08/2023 1.82 05/12/2023 1.62 11/11/2022 1.67 04/02/2021 1.39 02/19/2021 1.41 08/22/2020 1.31 BUN (mg/dL) Date Value 09/08/2023 39 05/12/2023 37 11/11/2022 44 04/02/2021 25 02/19/2021 32 08/22/2020 28 Anion Gap (mmol/L) Date Value 09/08/2023 8 05/12/2023 11 11/11/2022 13 04/02/2021 10 02/19/2021 11 08/22/2020 10 Calcium (mg/dL) Date Value 04/02/2021 9.5 02/19/2021 9.5 08/22/2020 9.7 Calcium, Total (mg/dL) Date Value 09/08/2023 10.1 05/12/2023 10.0 11/11/2022 9.5 eGFR- (no units) Date Value 04/02/2021 59 02/19/2021 58 08/22/2020 >60 eGFR-All Other Races (.) Date Value 04/02/2021 49 02/19/2021 48 08/22/2020 52 Estimated Glomerular Filtration Rate (mL/min/1.73m ) Date Value 09/08/2023 36 05/12/2023 41 11/11/2022 40 ALT (U/L) Date Value 09/08/2023 21 05/12/2023 25 11/11/2022 28 04/02/2021 27 02/19/2021 26 08/22/2020 33 TSH Date Value Ref Range Status 05/12/2023 3.010 0.270 - 4.200 mIU/L Final 04/10/2022 2.420 0.270 - 4.200 mIU/L Final 04/02/2021 2.380 0.270 - 4.200 uU/mL Final Free T4 Date Value Ref Range Status 04/02/2021 1.3 0.9 - 1.7 ng/dL Final 05/16/2020 1.2 0.9 - 1.7 ng/dL Final 12/10/2018 1.1 0.9 - 1.7 ng/dL Final Impression/Recommendations IMPRESSION Jamel Bonds is a 87 year old here for 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 RECOMMENDATIONS: 1. Glycemic control: Target HbA1C is less than 7.0% per ADA guidelines. Goal for him given age/comorbidities is <8%. This patient is at target, with significant improvement since taking insulin prior to meals. Plan Continue: Farxiga 10 mg daily Novolog [...] elevated or any low blood sugars <70 Obtain labs next month Follow up in 6 months The patient was reminded to check [...] diabetes is 130/80. -- This patient is near target on current regimen. I will defer management of this to their primarycare physician who is managing. 3. Lipids: Target LDL cholesterol in patients [...] risk factor for coronary heart disease LDL Cholesterol Date Value Ref Range Status 05/12/2023 55 [...] therapy. -- Managed by cardiology (Dr. Jacinto Chatman). 4. Nephropathy screening: Annual measurement of urine albumin excretion is recommended in patients with diabetes. Albumin/Creat Ratio (mg/g) Date Value 05/12/2023 195 (H) 04/02/2021 165 (H) Protein, Urine (no units) Date Value 01/11/2022 2+ (A) Creatinine, Ur Random (UCRR) (mg/dL) Date Value 05/12/2023 68.0 04/02/2021 85.3 -- This patient has albuminuria and is on BRIAN-I or ARB therapy. On SGLT2i as well. 5. Ophthalmology: Annual dilated eye exams are recommended for patients with type 1 and type 2 diabetes. -- This patient is not up to date with their annual eye exam and has no history of retinopathy. -- Last seen 08/2023 6. Hypothyroidism: -- Euthyroid. -- Continue LT4. -- Repeat TSH. Patient to continue to follow up with his PCP and with other consultants regarding his other medical problems. Any part of this document that has been added/copied & pasted from other documents has been reviewed for accuracy and updated as appropriate at the time of the patient encounter Arnold Handley APRN.CARDING SUPERVISOR documented in this encounterK[facility]24 NoteHNO ID: [id number] Author: ARNOLD HANDLEY APRN.CARDING SUPERVISOR Service: ? Author Type: Nurse Practitioner Type: Progress Notes Filed: 11/14/2023 14:30 Note Text: Endocrinology Follow-up History of Present Illness Jamel Bonds is a 87 year old male presents today for follow up of DM Type 2 and hypothyroidism. Patient reports switching how he was taking his insulin to prior to meals (as discussed at [facility]). His HbA1c has improved from 8.9% to 7.3%. No acute complaints today. On LT4 25 mcg daily, takes appropriately. Date of Diagnosis: ~1999 Last HbA1c: Hemoglobin A1C (%) Date Value 05/12/2023 8.9 04/10/2022 8.2 07/10/2021 8.4 04/02/2021 8.4 08/22/2020 7.9 05/16/2020 8.4 10/06/2019 7.8 03/22/2019 8.1 Hemoglobin A1C (POCT) (%) Date Value 11/14/2023 7.3 01/03/2023 8.9 08/09/2022 7.9 11/09/2021 7.9 12/29/2020 8.3 Family history of diabetes: father and maternal [...] cocoa 11-12 PM: Dinner 2 slices of vincentian cheese and ham, Glucerna 5-6 PM: Supper: biggest meal SMBG Frequency of Monitoring: Three times a Day BG Values: 2 week average 163, range 91-254 Hypoglycemia Frequency: none Current DM Related Medications: Current Medications 11/14/2023 DIABETES THERAPIES Medication Dosage Pharm Subclass dapagliflozin propanediol (FARXIGA) 10 mg tablet Take 1 tablet by mouth daily with breakfast. Antihyperglycemic - Sodium Glucose Cotransporter-2 (SGLT2) Inhibitors insulin 70/30 aspart protamine-aspart units/mL (NOVOLOG MIX 70-30) 100 unit/mL (70-30) pen INJECT 38 UNITS [...] mouth once daily. Beta Blockers Cardiac Selective ANTICOAGULANTS Medication Dosage Pharm Subclass heparin 100 unit/mL syrg NURSING USE ONLY: USE FOR IMPLANTED VASCULAR ACCESS DEVICE (IVAD) FLUSH. AMBULATORY/OUTPATIENT: PLEASE REORDER UPON HOSPITAL DISCHARGE May [...] in use. Pharmaceutical Adjuvant - Parenteral Vehicles baclofen (LIORESAL) 10 mg tablet Skeletal Muscle Relaxant - Central Muscle Relaxants blood sugar diagnostic (BLOOD GLUCOSE TEST) test strip Check glucose 3 times daily Dx: E11.65 Medical Supplies and DME - Blood Glucose Tests Blood-Glucose Meter (TRUE METRIX GLUCOSE METER) Check glucose 3 times daily Dx: E11.65 Medical Supplies and DME - Glucose Monitoring Test Supplies xeyhota-rdwadxsht-jhhlxkq D3 (OS-BESSY 500+D) 500 mg(1,250mg) -200 unit per tablet Minerals and Electrolytes - Calcium Replacement/Vitamin D Combinations Cholecalciferol, Vitamin D3, 50 mcg (2,000 unit) cap Take 2,000 mg by mouth once daily. Vitamins - D Derivatives citalopram hydrobromide (CELEXA) 10 mg tablet Take 10 mg by mouth once daily. Antidepressant - Selective Serotonin Reuptake Inhibitors (SSRIs) fluticasone (FLONASE) 50 mcg/actuation nasal spray 1 [place] as needed. Nasal Corticosteroids Insulin Reasnor, Disposable, (UNIFINE PENTIPS PLUS) 32 gauge x 5/32 Use with insulin pens 3 times daily Dx: E11.65 Medical Supplies and DME - Insulin Reasnor-Syringes and Admin Supplies Lactobac no.41-Bifidobact no.7 70 mg (3 billion cell) cap Probiotic 1 tab daily Intestinal Claudia Modifiers Lancets Check glucose 3 times daily Dx: E11.65 Medical Supplies and DME - Glucose Monitoring Test Supplies levothyroxine (SYNTHROID) 25 mcg tablet Take 1 tablet by mouth once daily. Thyroid Hormones - Synthetic T4 (Thyroxine) loratadine (CLAR (more content not included)...[facility] 10-16-2023 History of Present illness Narrative* Yariel Villanueva, - 10/16/2023 10:20 AM EDT Subjective SUBJECTIVE: Patient ID: Jamel Bonds is a 87 y.o. male who presents for a Medicare Annual Wellness exam. HPI The following portions of the patient's history were reviewed and updated as appropriate: allergies, current medications, past family history, past medical history, past social history, past surgicalhistory and problem list. AWV FLOWSHEET : Lifestyle Assessment Do you smoke or use smokeless tobacco?: No If you smoke or use smokeless tobacco, are you ready to quit?: NA Are you exposed to secondhand smoke?: No On average, how many drinks of alcohol do you consume in a week?: None Do you exercise for 30 or more minutes on average at least 3 days a week?: Often Do you have any tooth, denture, or oral problems?: No Do you snore or has anyone told you that you snore?: (!) Yes Do you try to eat a balanced diet?: Yes Do you experience leakage of urine, also known as urinary incontinence?: Never Do you have difficulty performing any of these activities? (check all that apply): None Do you have difficulty performing any of these activities? (check all that apply): None Fall Risk Fall Risk Assessment Completed?: Yes Have you fallen in the past year?: No Are you worried about falling?: No Do you feel unsteady when standing or walking?: No Risk Stratification: Low Risk Depression Screening Little interest or pleasure in doing things: Not at all Feeling down, depressed, or hopeless: Not at all Trouble falling or staying asleep, or sleeping too much: Not at all Feeling tired or having little energy: Not at all Poor appetite or overeating: Not at all Feeling bad about yourself - or that you are a failure or have let yourself or your family down: Not at all Trouble concentrating on things, such as reading the newspaper or watching television: Not at all Moving or speaking so slowly that other people could have noticed. Or the opposite - being so fidgety or restless that you have been moving around a lot more than usual: Not at all Thoughts that you would be better off , or of hurting yourself in some way: Not at all PEG Scale Safety Assessment Do you have throw rugs on the floor?: No Do you feel safe at your home?: Yes Do you feel unsteady when walking?: No Are you having difficulty with driving?: No Do you have trouble seeing?: (!) Yes What assistive device do you use? (check all that apply): (!) Cane Hearing Assessment Do you strain or struggle to hear/understand conversations?: (!) Yes Do you have trouble hearing the television or radio when others do not?: (!) Yes Does your family ever voice concerns about your hearing?: (!) Yes Do you wear hearing aid/s?: (!) Yes Personal Health During the past 4 weeks, how would you rate your overall health?: Very Good Do you understand how to take all of your medications?: Yes How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 04/10/2022 165 01/11/2022 168 07/10/2021 193 04/02/2021 197 02/19/2021 168 08/22/2020 147 Potassium (mmol/L) Date Value 04/10/2022 4.6 04/02/2021 4.5 Sodium (mmol/L) Date Value 04/10/2022 136 01/11/2022 141 07/10/2021 144 04/02/2021 137 02/19/2021 140 08/22/2020 142 Chloride (mmol/L) Date Value 04/10/2022 97 01/11/2022 102 07/10/2021 103 04/02/2021 98 02/19/2021 100 08/22/2020 102 CO2 (mmol/L) Date Value 04/10/2022 29 01/11/2022 29 07/10/2021 30 04/02/2021 29 02/19/2021 29 08/22/2020 30 Creatinine (mg/dL) Date Value 04/10/2022 1.48 01/11/2022 1.37 07/10/2021 1.47 04/02/2021 1.39 02/19/2021 1.41 08/22/2020 1.31 BUN (mg/dL) Date Value 04/10/2022 39 01/11/2022 27 07/10/2021 32 04/02/2021 25 02/19/2021 32 08/22/2020 28 Anion Gap (mmol/L) Date Value 04/10/2022 10 01/11/2022 10 07/10/2021 11 04/02/2021 10 02/19/2021 11 08/22/2020 10 Calcium (mg/dL) Date Value 04/02/2021 9.5 02/19/2021 9.5 08/22/2020 9.7 Calcium, Total (mg/dL) Date Value 04/10/2022 9.6 01/11/2022 9.2 07/10/2021 10.1 eGFR- (no units) Date Value 04/02/2021 59 02/19/2021 58 08/22/2020 >60 eGFR-All Other Races (.) Date Value 04/02/2021 49 02/19/2021 48 08/22/2020 52 Estimated Glomerular Filtration Rate (mL/min/1.73m ) Date Value 04/10/2022 46 01/11/2022 51 07/10/2021 47 ALT (U/L) Date Value 04/10/2022 19 01/11/2022 16 07/10/2021 34 04/02/2021 27 02/19/2021 26 08/22/2020 33 TSH Date Value Ref Range Status 04/10/2022 2.420 0.270 - 4.200 mIU/L Final 04/02/2021 2.380 0.270 - 4.200 uU/mL Final 05/16/2020 2.370 0.270 - 4.200 uU/mL Final Free T4 Date Value Ref Range Status 04/02/2021 1.3 0.9 - 1.7 ng/dL Final 05/16/2020 1.2 0.9 - 1.7 ng/dL Final 12/10/2018 1.1 0.9 - 1.7 ng/dL Final Impression/Recommendations IMPRESSION Jamel Bonds is a 86 year old here for 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 RECOMMENDATIONS: 1. Glycemic control: Target HbA1C is less than 7.0% per ADA guidelines. Goal for him given age/comorbidities is 7-8%. A1c not at target, but POC readings are at target (BGavg 135) and seem incongruent with A1c. Readings are sometimes in the 80-100 range, especially midday or predinner. Will see how he does on twice daily dosing and adjust in one week if needed. Plan Novolog 70/30 -- 38 units with breakfast and 34 units with dinner - Can try twice daily and monitor sugars on this, let me know in one week how these are running Farxiga 10 mg daily Check your blood sugar 3 times daily and record in log book to bring to all appointments. Bring your meter to all appointments as well. Glucose targets as: Fasting 90-130, before meals 100-130, and bedtime under 150 mg/dL. Notify office for consistently elevated or any low blood sugars <70 Follow up with me in 4 months The patient was reminded [...] diabetes is 130/80. -- This patient is not at target on current regimen. I will defer management of this to their primary care physician who is managing. 3. Lipids: Target LDL cholesterol in patients with diabetes is less than 100, less than 70 if patient has overt CVD. Several studies have shown cardiovascular benefits of statin therapy in all patients with diabetes over age 40 with at least 1 CVD risk factor. Cholesterol, Total Date Value Ref Range Status 04/10/2022 138 <200 mg/dL Final Comment: <200 mg/dL, Desirable 200-239 mg/dL, Borderline high >239 mg/dL, High HDL Cholesterol Date Value Ref Range Status 04/10/2022 41 >39 mg/dL Final Comment: 40-59 mg/dL, Acceptable >59 mg/dL, High: Negative risk factor for coronary heart disease <40 mg/dL, Low: Positive risk factor for coronary heart disease LDL Cholesterol Date Value Ref Range Status 04/10/2022 60 <100 mg/dL Final Comment: <100 mg/dL, Optimal 100-129 mg/dL, Near optimal/above optimal 130-159 mg/dL, Borderline high 160-189 mg/dL, High >189 mg/dL, Very high Secondary prevention optimal LDL Cholesterol levels are recommended to be < 70 mg/dL Triglyceride Date Value Ref Range Status 04/10/2022 186 (H) <150 mg/dL Final Comment: <150 mg/dL, Normal 150-199 mg/dL, Borderline high 200-499 mg/dL, High >499 mg/dL, Very high -- This patient is currently at target on statin therapy. -- Managed by cardiology (Dr. Jacinto Chatman). 4. Nephropathy screening: Annual measurement of urine albumin excretion is recommended in patients with diabetes. Albumin/Creat Ratio (mg/g) Date Value 04/10/2022 300 (H) 04/02/2021 165 (H) Protein, Urine (no units) Date Value 01/11/2022 2+ (A) Creatinine, Ur Random (UCRR) (mg/dL) Date Value 04/10/2022 56.1 04/02/2021 85.3 -- This patient has albuminuria and is on BRIAN-I or ARB therapy. On SGLT2i as well. 5. Ophthalmology: Annual dilated eye exams are recommended for patients with type 1 and type 2 diabetes. -- This patient is not up to date with their annual eye exam and has no history of retinopathy. -- Last seen 10/2020- has appt in April 29. Hypothyroidism: -- Clinically and biochemically euthyroid. -- Continue L-T4 25 mcg daily. -- Monitor annually. Patient to continue to follow up with his PCP and with other consultants regarding his other medical problems. Any part of this document that has been added/copied & pasted from other documents has been reviewed for accuracy and updated as appropriate at the time of the patient encounter Arnold Handley APRN.CARDING SUPERVISOR [facility]* Diagnosis Type 2 diabetes mell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, with long-term current use of insulin (HCC) Dyslipidemia Other and unspecified hyperlipidemia Acquired hypothyroidism Unspecified hypothyroidism documented in this encounter [facility]01[facility]23 Discharge summary Author Aline Pierre [facility] March 26, 2022 9:23am Note Date/Time March 26, 2022 9: 20am [facility] [address] [place] [address] Discharge Summary Signed Patient: Jamel Bonds MR#: [id number] : 1935 Acct:[id number] Age/Sex: 86 / M Adm Date: 2 Loc: 3T Room: [address] [place] [address]: Aline Pierre MD Copies to: DO Aline Norris MD~ Providers Date of Discharge: 03/26/22 Discharging Provider: Aline Pierre Primary Care Provider: Yariel Villanueva Consults: 03/23/22 03:17 Consult to Occupational Therapy Routine Consult to Physical Therapy Routine 03/25/22 11:53 Consult to Neurology Routine Discharge Diagnosis (1) Altered mental status: (2) Diabetes: (3) Afib: (4) Paroxysmal atrial fibrillation: (5) S/P placement of cardiac pacemaker: Final Diagnosis Final Discharge Diagnosis: As listed above and others at that are not listed Summary Hospital Course Hospital course: Mr. Bonds is an 86-year-old gentleman who was brought in after he had a transient episode of confusion and disorientation. CAT scan of the brain is negative. The blood work is unremarkable and there are no deviation from baseline. No evidence of infection other than his recent COVID infection. MRI was ordered but unfortunately his pacemaker is not compatible with MRI thereforeI had to repeat CAT scan to exclude evolving stroke. That came back negative. Patient was seen by neurology team. Please refer to Dr. Vazquez's note for details in terms of his thought process and differential diagnosis. Once again MRI could not be ordered. EEG is ordered but not completed. Meanwhile the patient is back to normal. He is awake and alert. He is coherent. He is able to ambulate back and forth to the bathroom. Back to baseline state according to the patient himself and his . Patient will be discharged home once cleared by neurology team. Patient will beinstructed to follow-up with his PCP and neurology. Patient will continue his home medications with downward titration of his insulin to prevent hypoglycemia. Patient will be given instructions as such: Check your blood sugar 3 times a day before meals. Document these numbers on a blood glucose log and bring them with you to your follow-up appointment with your primary care doctor. Communicate with your primary care doctor or occupational medicine specialist if your blood sugar is under 100 or above 300 on 2 consecutive checks. Communicate with your primary care doctor or occupational medicine specialist if you have anyquestions about your diabetes medications. Signs of a low blood sugar include sweating, racing heart, dizziness and/or weakness. Check your blood sugar if you have any of the symptoms. Patient has multiple complex medical issues. All appear to be stable. I do nothave any clear or strong clinical justification to extend inpatient hospitalization. Patient however will require close and the frequent monitoringas well as additional work-up, investigation and therapeutic intervention that could take place from this point on post discharge. That is to prevent relapse,decompensation, rehospitalization and other medical implications. Time Spent with Patient Time spent providing/coordinating discharge services (# min): 50 Diagnostic Studies Completed and Pending Studies Pending studies at discharge: 03/26/22 05:00 EEG awake & asleep Routine 03/26/22 06:15 B12 [Vitamin B12] [CHEM] IN AM CMP [Comprehensive Metabolic Panel] [CHEM] IN AM Vitamin D 25 Hydroxy Total [CHEM] IN AM 03/26/22 09:10 Thyroid Stimulating Hormone [CHEM] Routine Labs on day of discharge: 03/26/22 08:00: Ammonia 11 03/26/22 06:50: POC Glucose 110 03/26/22 06:15: PHA Creatinine Clear 37.86, Sodium 133 L, Potassium 3.9, Chloride 99, Carbon Dioxide 24.8, Anion Gap 13.1, BUN 21, Creatinine 1.38 H, Est GFR ( Amer) 59, Est GFR (Non-Af Amer) 49, Glucose 112 H, Calcium 8.3, Total Bilirubin 0.6, AST 29, ALT 27, Alkaline Phosphatase 58, Total Protein 6.2, Albumin 2.7 L, Globulin 3.5, Albumin/Globulin Ratio 0.8, Vitamin B12 811 03/26/22 06:15: Corrected WBC 5.7, Uncorrected WBC Count 5.7, RBC 3.91, Hgb 11.9 L, Hct 34.9 L, MCV 89.3, MCH 30.4, MCHC 34.0, RDW 14.5, Plt Count 299, MPV 7.7, Neut % (Auto) 60.0, Lymph % (Auto) 20.5, [place] % (Auto) 13.4, Eos % (Auto) 5.7, Baso % (Auto) 0.4, Nucleat RBC Rel Count 0.1, Neut # (Auto) 3.4, Lymph # (Auto) 1.2, [place] # (Auto) 0.8, Eos # (Auto) 0.3, Baso # (Auto) 0.0 03/26/22 03:11: POC Glucose 98, POC Glucose Comment Glu2: cleaned meter 03/25/22 16:04: POC Glucose 110, POC Glucose Comment Glu2: cleaned meter 03/25/22 11:03: POC Glucose 111, POC Glucose Comment Glu2: cleaned meter Exam Physical Exam Vital Signs: Temp Pulse Resp BP Pulse Ox O2 Del Method O2 Flow Rate 97.2 F L 64 18 150/81 H 95 Room Air 2 03/26/22 08:00 03/26/22 08:06 03/26/22 08:00 03/26/22 08:00 03/26/22 08:00 03/26/22 08:00 03/23/22 08:00 Narrative: [pt is awake and alert. oriented to place, time and person HEENT: [place] conjunctiva and NL buccal mucosa Neck: Supple, no tenderness Endocrine: No Thyromegaly. Vascular: No JVD or carotid bruit. Lymphatic: No cervical lymphadenopathy. Chest: Fine crackles. Heart RRR, no extra sound or murmur. Abd: Soft, no tenderness, no rebound and no rigidity. Increase abd girth therefore clinically I could not exclude the possibility of intra abd mass or organomegaly. LE: No cyanosis or clubbing, no varices or edema. Neuro: A A O. Nl speech, comprehension and attention. Nl and symetrical motor and tone examination through out. Patient needs assist to stand up and ambulating. Nonfocal []] Discharge Plan Discharge Plan Patient Disposition: Home Additional Instructions: I may not have addressed or treated all of your medical illnesses or the abnormal blood work or imaging studies during this hospitalization. Please ask your primary care provider to obtain [facility] records entirely to follow up on all of the abnormal physical, laboratory, and imaging findings that I have not addressed. Check your blood sugar 3 times a day before meals. Document these numbers on a blood glucose log and bring them with you to your follow-up appointment with your primary care doctor. Communicate with your primary care doctor or occupational medicine specialist if your blood sugar is under 100 or above 300 on 2 consecutive checks. Communicate with your primary care doctor or occupational medicine specialist if you have any questions about your diabetes medications. Signs of a low blood sugar include sweating, racing heart, dizziness and/or weakness. Check your blood sugar if you have any of the symptoms. Please return back to the emergency room or seek medical attention if your symptoms worsen or return. Discharging you from [facility] does not mean that your medical care ends here and now. You may still need additional monitoring, work up, investigation, and treatment plan to be handled from this point on by out patient providers including your primary care provider and specialists. For any medication question, please contact your retail pharmacist or your primary care provider. Thank you. Prescriptions: Continued atorvastatin 40 mg tablet 40 mg PO DAILY Patient Comments: TAKE 1 TABLET BY MOUTH AT BEDTIME omeprazole 20 mg Capsule,Delayed Release(Dr/Ec) 20 mg PO DAILY digoxin 125 mcg (0.125 mg) tablet 125 mcg PO DAILY Patient Comments: TAKE 1 TABLET BY MOUTH DAILY metoprolol succinate 25 mg tablet extended release 24 hr 25 mg PO DAILY Patient Comments: TAKE 1 TABLET BY MOUTH EVERY DAY Farxiga 10 mg tablet 10 mg PO DAILY.WITH.BKFAST Patient Comments: TAKE 1 TABLET BY MOUTH DAILY WITH BREAKFAST levothyroxine 25 mcg tablet 25 mcg PO DAILY Patient Comments: TAKE 1 TABLET BY MOUTH IN THE MORNING tamsulosin 0.4 mg capsule 0.4 mg PO DAILY multivitamin Tablet 2 tab PO DAILY acetaminophen 500 mg Tablet 1,000 mg PO Q6H PRN (Reason: Pain) magnesium oxide 400 mg (241.3 mg magnesium) Tablet 400 mg PO QHS fluticasone propionate 50 mcg/actuation [place],Suspension 2 spray INTRANASAL DAILY Rx Instructions: administer into each nostril loratadine [Claritin] 10 mg Tablet 10 mg PO DAILY PRN (Reason: Allergy Symptoms) calcium carbonate-vitamin D3 500 mg-15 mcg (600 unit) Tablet 1 tab PO BID melatonin 10 mg Tablet 10 mg PO HS spironolactone 25 mg Tablet 25 mg PO DAILY 30 Days Qty: 30 11RF Eliquis 5 mg tablet 5 mg PO BID Qty: 60 11RF furosemide [Lasix] 40 mg Tablet 40 mg PO DAILY PRN (Reason: Lower extremity swelling, abnormal weight gain,SOB) 30 Days Qty: 30 0RF Rx Instructions: 30 mins before spironolactone Changed losartan 50 mg tablet 50 mg PO DAILY 30 Days Qty: 30 11RF Patient Comments: TAKE 1 TABLET BY MOUTH DAILY insulin asp prt-insulin aspart [Novolog Mix 70-30FlexPen U-100] 100 unit/mL (70- 30) insulin pen 22 unit SUBCUT DAILY.AC.LUNCH Qty: 15 0RF Rx Instructions: 38 units before breakfast 28 units at lunchtime 34 units at dinner insulin asp prt-insulin aspart [Novolog Mix 70-30FlexPen U-100] 100 unit/mL (70- 30) insulin pen 32 unit subcut DAILY.AC.BKFAST Qty: 15 0RF Patient Comments: INJECT 27 UNITS SUB-Q TWICE A DAY Rx Instructions: 38 units before breakfast 28 units at lunchtime 34 units at dinner insulin asp prt-insulin aspart [Novolog Mix 70-30FlexPen U-100] 100 unit/mL (70- 30) insulin pen 30 unit SUBCUT DAILY.AC SUPPER Qty: 15 0RF Rx Instructions: 38 units before breakfast 28 units at lunchtime 34 units at dinner Follow Up: Yariel Villanueva DO [Primary Care Provider] - Magdaleno Vazquez MD [Courtesy/Consulting Physician] - Documented By: Aline Pierre MD 03/26/22918 Signed By: <Electronically signed by Aline Pierre MD> 03/26/22922 [facility] Work Phone: [phone] 720-122501-03-2023 Progress note Author Katy Jerry [facility] March 26, 2022 2:03pm Note Date/Time March 26, 2022 9: 07am [facility] [address] [place] [address] Neurology Progress Note Signed Patient: Jamel Bonds MR#: [id number] : 1935 Acct:[id number] Age/Sex: 86 / M Adm Date: 2 Loc: 3T Room: [address] [place] [address] Type: ADM IN Attending Dr: Aline Pierre MD Copies to: ~ Date of Service: 03/26/2022 Subjective Subjective Narrative: Patient denies any confusion. Family states that he is close to his baseline. Patient denies any episodes of lethargy or altered awareness. Patient denies any unilateral numbness, weakness, or vision changes. Review of Systems Review of Systems Review of systems: Patient denies any headaches, nausea, or vomiting. Exam Physical Exam Vital Signs: Temp Pulse Resp BP Pulse Ox O2 Del Method O2 Flow Rate 97.2 F L 64 18 150/81 H 95 Room Air 2 03/26/22 08:00 03/26/22 08:06 03/26/22 08:00 03/26/22 08:00 03/26/22 08:00 03/26/22 08:00 03/23/22 08:00 Neuro Other: Neurological exam: General: The patient is awake alert and oriented to person and hospital. Language is intact. Cranial nerves: Pupils equal round reactive light and accommodation, extraocularmovements intact, visual mackenzie are full to confrontation, sensations intact in the face, hearing is intact to finger rub, palate elevates bilaterally, tongue protrudes midline, shoulder shrug is symmetric. Motor: Strength testing is 5 out of 5 in all 4 extremities, deep tendon reflexesare 1+ and symmetric throughout, plantar reflexes flexor, tone is normal throughout. Sensory: light touch intact in all 4 extremities Cerebellar/gait: No ataxia noted on finger to nose Objective Vital Signs Vital Signs: Vital Signs - 24 hr 03/25/22 09:45 03/25/22 12:00 03/25/22 16:00 Temperature Pulse Rate 61 61 61 Respiratory Rate 20 20 Blood Pressure 133/67 130/66 02 Sat by Pulse Oximetry 94 L 95 Oxygen Delivery Method Room Air Room Air 03/25/22 20:00 03/25/22 20:00 03/26/22 00:00 Temperature Pulse Rate 56 L Respiratory Rate 14 14 Blood Pressure 116/71 02 Sat by Pulse Oximetry 94 L Oxygen Delivery Method Room Air Room Air 03/26/22 04:00 03/26/22 08:00 03/26/22 08:06 Temperature 97.2 F L Pulse Rate 60 64 64 Respiratory Rate 14 18 Blood Pressure 119/79 150/81 H 02 Sat by Pulse Oximetry 94 L 95 Oxygen Delivery Method Room Air Room Air Labs 03/26/22 06:15 03/26/22 06:15 Lab Results: 03/26/22 08:00: Ammonia 11 Therapy Recommendations Therapy Recommendations: OT Recommendations OT Self-care DME Recommended Long Handled Sponge,Grab Bar,Shower Seat,Toilet Rail OT Mobility DME Recommended Walker, Wheeled OT Recommended Discharge Home with Home Health Location OT Recommended Services at Physical Therapy,Occupational Therapy Discharge PT Recommendations PT Recommended Discharge Home with Home Health,Home with Outpatient Location PT Recommended Services at Physical Therapy Discharge Assessment/Plan (1) Altered mental status: Code(s): R41.82 - Altered mental status, unspecified Status: Acute Plan The patient is an 86-year-old male with confusion which likely is secondary to amultifactorial metabolic encephalopathy.? The patient has had recent COVID infection and may have some cognitive impairment related to this viral syndrome.? The patient likely has some component of baseline cognitive impairment exacerbated by recent hospitalization.? The patient may have a component of sleep-wake cycle disturbance contributing to his symptoms.? In addition the patient has what sounds like major depression which may be causing some baselinecognitive impairment.? I cannot completely exclude an acute intracranial processgiven the patient's increased risk for stroke due to age, risk factors, and recent viral infection with COVID. 1. CT scan of the head was nonacute x2. 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 2. EEG pending 3. COVID-19 positive. Chest x-ray showed developing bilateral parenchymal changes. T-max since admission 100.3. No leukocytosis. Treatment of COVID perprimary team 4. Creatinine 1.38. Appears to be baseline. BUN is normal 5. LFTs normal, ammonia 11 6. B12 811, vitamin D is pending. We will check TSH 7. Urinalysis not consistent with infection. 8. Documented By: Magdaleno Vazquez MD 03/26/22 0904 Signed By: <Electronically signed by MD Magdaleno Vazquez> 03/26/22 1307 <Electronically signed by RAIN Jerry> 03/26/22 1403 [facility] Work Phone: 1([phone]) 408-351901-02-2023 Consult note Author Magdaleno Vazquez [facility] March 25, 2022 2:18pm Note Date/Time March 25, 2022 2: 19pm [facility] [address] [place] [address] Neurology Consult Note Signed Patient: Jamel Bonds MR#: [id number] : 1935 Acct:[id number] Age/Sex: 86 / M Adm Date: 2 Loc: 3T Room: [address] [place] [address] Type: ADM IN Attending Dr: Aline Pierre MD Copies to: DO Aline Norris MD Steven Benedict, MD~ HPI Consult Date: 03/25/22 High Worker: Magdaleno Vazquez MD Reason for consult: Confusion/stroke Consult Narrative HPI: The patient is an 86-year-old male who I was asked to see in neurological consultation by the hospitalist for confusion. The patient was diagnosed with COVID approximately 2 weeks ago. The patient was then admitted to the hospital for generalized weakness. The patient was subsequently discharged home and return to the emergency room with increased confusion. The patient is accompanied by his family who states that he did have some language disturbance during this time. The patient's family states that he has improved although is not back to his previous baseline. The patient denies any unilateral numbness, unilateral weakness, or vision changes. The patient did have a noncontrast CT scan of the brain which did not reveal any evidence of acute infarct or hemorrhage. The patient denies any history of confusion in the past. The patient is states that he did have some mild short-term memory difficultiesin the past. In addition the patient's family states that they noticed the patient having significantly increased depression after the loss of a friend several months ago which has worsened some of the patient's cognition predating most recent medical conditions. Review of Systems Review of Systems Review of systems: As mentioned above. No history of abnormal bleeding, skin rash, shortness of breath, or chest pain PMFSH Vaccinated for COVID-19?: Unknown Medical History (Updated 03/23/22 @ 12:21 by Suni Stevens DO, RES) Diabetes History of pacemaker HTN (hypertension) Non-Hodgkin lymphoma Port-A-Cath in place Surgical History (Updated 03/22/22 @ 18:33 by Katja Hernandez RN) History of cardiac catheterization Family History (Updated 03/20/22 @ 11:45 by Karla Chong RN) Mother Diabetes Mother Heart attack Grandparent Diabetes Grandparent Cancer Social History Smoking Status: Unknown if ever smoked Substance Use Type: None Substance Abuse Comment: unable to determine Meds Medications and Allergies Allergies Penicillins Adverse Reaction (Verified 03/22/22 18:26) Difficulty Breathing Home Medications insulin aspar prot-insulin aspart 100 unit/mL (70-30) subcutaneous pen (Novolog Mix 70-30FlexPen U-100) 38 units subcut DAILY.AC.BKFAST 08/29/17 [History Confirmed 03/22/22] atorvastatin 40 mg tablet 40 mg PO DAILY 08/11/21 [History Confirmed 03/22/22] dapagliflozin 10 mg tablet (Farxiga) 10 mg PO DAILY.WITH.BKFAST 08/11/21 [History Confirmed 03/22/22] digoxin 125 mcg (0.125 mg) tablet 125 mcg PO DAILY 08/11/21 [History Confirmed 03/22/22] metoprolol succinate 25 mg tablet,extended release 24 hr 25 mg PO DAILY 08/11/21[History Confirmed 03/22/22] omeprazole 20 mg capsule,delayed release 20 mg PO DAILY 08/11/21 [History Confirmed 03/22/22] levothyroxine 25 mcg tablet 25 mcg PO DAILY 03/20/22 [History Confirmed 03/22/22] tamsulosin 0.4 mg capsule 0.4 mg PO DAILY 03/20/22 [History Confirmed 03/22/22] acetaminophen 500 mg tablet 1,000 mg PO Q6H PRN Pain 03/21/22 [History Confirmed 03/22/22] calcium carbonate 500 mg-vitamin D3 15 mcg (600 unit) tablet 1 tab PO BID 03/21/22 [History Confirmed 03/22/22] fluticasone propionate 50 mcg/actuation nasal spray,suspension 2 spray intranasal DAILY 03/21/22 [History Confirmed 03/22/22] insulin aspar prot-insulin aspart 100 unit/mL (70-30) subcutaneous pen (Novolog Mix 70-30FlexPen U-100) 28 unit subcut DAILY.AC.LUNCH 03/21/22 [History Confirmed 03/22/22] insulin aspar prot-insulin aspart 100 unit/mL (70-30) subcutaneous pen (Novolog Mix 70-30FlexPen U-100) 34 unit subcut DAILY.AC SUPPER 03/21/22 [History Confirmed 03/22/22] loratadine 10 mg tablet (Claritin) 10 mg PO DAILY PRN Allergy Symptoms 03/21/22 [History Confirmed 03/22/22] magnesium oxide 400 mg (241.3 mg magnesium) tablet 400 mg PO QHS 03/21/22 [History Confirmed 03/22/22] melatonin 10 mg tablet 10 mg PO HS 03/21/22 [History Confirmed 03/22/22] multivitamin 2 tab PO DAILY 03/21/22 [History Confirmed 03/22/22] apixaban 5 mg tablet (Eliquis) 5 mg PO BID #60 tabs 03/22/22 [Rx Confirmed 03/22/22] furosemide 40 mg tablet (Lasix) 40 mg PO DAILY PRN Lower extremity swelling, abnormal weight gain,SOB 30 days #30 tabs 03/22/22 [Rx Confirmed 03/22/22] losartan 50 mg tablet 50 mg PO BID 30 days #30 tabs 03/22/22 [Rx Confirmed 03/22/22] spironolactone 25 mg tablet 25 mg PO DAILY 30 days #30 tabs 03/22/22 [Rx Confirmed 03/22/22] Exam Physical Exam Vital Signs: Temp Pulse Resp BP Pulse Ox O2 Del Method O2 Flow Rate 98.7 F 61 20 133/67 94 L Room Air 2 03/25/22 08:00 03/25/22 12:00 03/25/22 12:00 03/25/22 12:00 03/25/22 12:00 03/25/22 12:00 03/23/22 08:00 Neuro Other: Neurological exam: General: The patient is awake alert and oriented to person and place but disoriented to time. Language is intact. Recall and fund of knowledge are impaired Neurovascular exam: No carotid bruits. Regular rate and rhythm Cranial nerves: Pupils equal round reactive light and accommodation, fundoscopicexam is normal, extraocular movements intact, visual mackenzie are full to confrontation, sensations intact in the face, hearing is intact to finger rub, palate elevates bilaterally, tongue protrudes midline, shoulder shrug is symmetric. Motor: Strength testing is 5 out of 5 in all 4 extremities, deep tendon reflexesare 2+ and symmetric throughout, plantar reflexes flexor, tone is normal throughout. Sensory: Pinprick, light touch, temperature, proprioception are intact in all 4 extremities Cerebellar/gait: No ataxia noted on finger to nose. Results Laboratory Findings 03/23/22 08:04 03/23/22 08:04 Diagnostic Findings Imaging/Impressions: ITS Impressions Head CT 03/22/22 18:26 IMPRESSION: AGE-RELATED CHANGES. NO DEFINITE ACUTE INTRACRANIAL ABNORMALITY. FOLLOW-UP IS RECOMMENDED, SYMPTOMS WARRANT. Comment: Findings were discussed with Dr. Pittman at 1846 hours Impression dictated by: Tiffani Smith M.D.03/22/2022 6:48 PM Dictation Location: [place] [address] Therapy Recommendations Therapy Recommendations: OT Recommendations OT Self-care DME Recommended Long Handled Sponge,Grab Bar,Shower Seat,Toilet Rail OT Mobility DME Recommended Walker, Wheeled OT Recommended Discharge Home with Home Health Location OT Recommended Services at Physical Therapy,Occupational Therapy Discharge PT Recommendations PT Recommended Discharge Home with Home Health,Home with Outpatient Location PT Recommended Services at Physical Therapy Discharge Assessment/Plan (1) Altered mental status: Assessment/Problem Details: The patient is an 86-year-old male who I was asked see in neurological consultation for confusion which likely is secondary to a multifactorial metabolic encephalopathy. The patient has had recent COVID infection and may have some cognitive impairment related to this viral syndrome. The patient likely has some component of baseline cognitive impairment exacerbated by recenthospitalization. The patient may have a component of sleep-wake cycle disturbance contributing to his symptoms. In addition the patient has what sounds like major depression which may be causing some baseline cognitive impairment. I cannot completely exclude an acute intracranial process given thepatient's increased risk for stroke due to age, risk factors, and recent viral infection with COVID. -I will obtain an MRI scan of the brain to assess for underlying cerebral ischemia or other intracranial process which may be contributing to his symptoms. -I will obtain an EEG to assess for underlying epileptiform activity -I will continue to follow the patient clinically with medical management of underlying medical conditions -I counseled the patient and his family on the possible diagnosis, prognosis, evaluation, treatment options -I will make further recommendations based upon patient's clinical course and the above results. Code(s): R41.82 - Altered mental status, unspecified Status: Acute Documented By: Magdaleno Vazquez MD 03/25/22 1412 Signed By: <Electronically signed by MD Magdaleno Vazquez> 03/25/22 141 [facility] Work Phone: 1(426) 422-813901-02-2023 Progress note Author Aline Pierre [facility] March 25, 2022 10:18am Note Date/Time March 25, 2022 10 :18am [facility] [address] [place], [place] [id number] Hospitalist Progress Note Signed Patient: Jamel Bonds MR#: [id number] : 1935 Acct:[id number] Age/Sex: 86 / M Adm Date: 2 Loc: 3T Room: [address] [place] [address] Type: ADM IN Attending Dr: Aline Pierre MD Copies to: ~ Date of Service: 03/25/2022 Subjective Subjective Narrative: Patient is feeling better. Awake and oriented. Denies having any confusion or disorientation. No chest pain or palpitation. No abdominal pain, nausea or vomiting. No cough or congestion Exam Physical Exam Vital Signs: Temp Pulse Resp BP Pulse Ox O2 Del Method O2 Flow Rate 98.7 F 61 20 132/68 93 L Room Air 2 03/25/22 08:00 03/25/22 09:45 03/25/22 08:00 03/25/22 08:00 03/25/22 08:00 03/25/22 08:00 03/23/22 08:00 Narrative: [pt is awake and alert. oriented to place, time and person HEENT: Creola conjunctiva and NL buccal mucosa Neck: Supple, no tenderness Endocrine: No Thyromegaly. Vascular: No JVD or carotid bruit. Lymphatic: No cervical lymphadenopathy. Chest: Fine crackles. Heart RRR, no extra sound or murmur. Abd: Soft, no tenderness, no rebound and no rigidity. Increase abd girth therefore clinically I could not exclude the possibility of intra abd mass or organomegaly. LE: No cyanosis or clubbing, no varices or edema. Neuro: A A O. Nl speech, comprehension and attention. Nl and symetrical motor and tone examination through out. Patient needs assist to stand up and ambulating. Nonfocal []] Objective Lab Results 03/23/22 08:04 03/23/22 08:04 Meds Allergies and Active Meds Allergies Penicillins Adverse Reaction (Verified 03/22/22 18:26) Difficulty Breathing Active Meds: Active Medications Generic Name Dose Route Start Last Admin Trade Name Freq PRN Reason Stop Dose Admin Acetaminophen 1,000 mg 03/23/22 03:29 03/23/22 04:12 Acetaminophen 500 Mg Tablet PO 03/23/23 03:28 1,000 mg Q6H PRN Administration Pain Apixaban 5 mg 03/23/22 09:00 03/25/22 09:44 Apixaban 5 Mg Tablet PO 03/23/23 08:59 5 mg BID SLIM Administration Atorvastatin Calcium 40 mg 03/23/22 09:00 03/25/22 09:44 Atorvastatin 40 Mg Tablet PO 03/23/23 08:59 40 mg DAILY SLIM Administration Canagliflozin 300 mg 03/23/22 07:30 03/25/22 06:58 Canagliflozin 300 Mg Tablet PO 03/23/23 07:29 Not Given DAILY.AC.BKFAST SLIM Dextrose 0 gm 03/23/22 19:04 Dextrose 20 % In Water 10 Gm/50 Ml Syringe IV-PUSH 03/23/23 19:03 PRN PRN Hypoglycemia Digoxin 125 mcg 03/23/22 09:00 03/25/22 09:45 Digoxin 125 Mcg Tablet PO 03/23/23 08:59 125 mcg DAILY SLIM Administration Fluticasone Propionate 2 spray 03/23/22 09:00 03/25/22 09:45 Fluticasone Propionate [place] 120 [place]/16 Gm Bottle INTRANASAL 03/23/23 08:59 2 spray DAILY SLIM Administration Glucose 0 gm 03/23/22 19:04 Dextrose 40% Gel 15 Gm Tube PO 03/23/23 19:03 PRN PRN Hypoglycemia Insulin Aspart Prota 70%/Aspart 30% 24 units 03/25/22 11:30 Insulin Aspart Protamin/Aspart 300 Units/3 Ml Insuln.Pen SUBCUT 03/25/23 11:29 DAILY.AC.LUNCH SLIM Insulin Aspart Prota 70%/Aspart 30% 28 units 03/24/22 16:30 03/24/22 16:11 Insulin Aspart Protamin/Aspart 300 Units/3 Ml Insuln.Pen SUBCUT 03/24/23 16:29 28 units DAILY.AC SUPPER SLIM Administration Insulin Aspart Prota 70%/Aspart 30% 30 units 03/25/22 07:30 03/25/22 09:46 Insulin Aspart Protamin/Aspart 300 Units/3 Ml Insuln.Pen SUBCUT 03/25/23 07:29 30 units DAILY.AC.BKFAST SLIM Administration Levothyroxine Sodium 25 mcg 03/23/22 06:30 03/25/22 06:17 Levothyroxine 25 Mcg Tablet PO 03/23/23 06:29 25 mcg DAILY@0630 SLIM Administration Melatonin 10 mg 03/23/22 22:00 03/24/22 21:29 Melatonin 5 Mg Tablet PO 03/23/23 21:59 10 mg HS SLIM Administration Metoprolol Succinate 25 mg 03/23/22 09:00 03/25/22 09:44 Metoprolol Succinate 25 Mg Tab.Er.24h PO 03/23/23 08:59 25 mg DAILY SLIM Administration Omeprazole 20 mg 03/23/22 09:00 03/25/22 09:44 Omeprazole 20 Mg Capsule.Dr PO 03/23/23 08:59 20 mg DAILY SLIM Administration Sodium Chloride 0 ml 03/22/22 18:31 Sodium Chloride 0.9 % 10 Ml Syringe IV-PUSH 03/22/23 18:30 PRN PRN Flush Spironolactone 25 mg 03/23/22 09:00 03/25/22 09:44 Spironolactone 25 Mg Tablet PO 03/23/23 08:59 25 mg DAILY SLIM Administration Tamsulosin HCl 0.4 mg 03/23/22 09:00 03/25/22 09:44 Tamsulosin 0.4 Mg Cap.Er.24h PO 03/23/23 08:59 0.4 mg DAILY SLIM Administration A&P - Hospitalist Assessment/Plan (1) Altered mental status: (2) Elevated troponin: (3) Depressed: Plan Transient alteration in consciousness Etiology is not clear. Patient with recent COVID-19 infection during his prior admission. He did have a transient episode of what sounds to be aphasia, lasting about 30 minutes, according to spouse. Will obtain MRI brain. If positive, will do CTA head neck or alternative studies. It is possible however that he had encephalopathy related to COVID-19 infection. A component of pseudodementia related to untreated depression could be also present. Depression Has been chronic for years, has never been treated for it Recommended outpatient follow-up with PCP to manage depression as this could be contributing to his altered mental status MANFRED. CKD stage III. Renal function close to baseline. DC fluids. Elevated troponin Heart cath few days ago, minimal CAD. Medical therapy recommended Chronic conditions: Type 2 diabetes, hypertension, paroxysmal A. fib DVT prophylaxis: Xarelto, SCDs Diet: Full CODE STATUS: Full The aforementioned paragraph was documented by my colleague on 04/12/2022 Continue current treatment plan PT OT eval and treatment. Evaluate for short-term skilled care versus rehab. MRI is pending. Documented By: Aline Pierre MD 03/25/22 1017 Signed By: <Electronically signed by Aline Pierre MD> 03/25/22 1018 [facility] Work Phone: 1(219) 993-812901-01-2023 Progress note Author Kevin Phillips [facility] March 24, 2022 3:11pm Note Date/Time March 24, 2022 3: 11pm [facility] [address] [place] [address] Hospitalist Progress Note Signed Patient: Jamel Bonds MR#: [id number] : 1935 Acct:[id number] Age/Sex: 86 / M Adm Date: 2 Loc: Room: [address] [place] [address] Type: ADM IN Attending Dr: Kevin Phillips MD Copies to: ~ Date of Service: 03/24/2022 Subjective Subjective Narrative: Patient is improving today. According to spouse who is at bedside, he is about 90% back to his baseline. There is no evidence of any aphasia or any other focal motor deficit Heart is regular Lungs are clear Abdomen soft benign Exam Physical Exam Vital Signs: Temp Pulse Resp BP Pulse Ox O2 Del Method O2 Flow Rate 98.2 F 60 18 144/75 H 95 Room Air 2 03/24/22 09:47 03/24/22 09:47 03/24/22 09:47 03/24/22 09:47 03/24/22 09:47 03/24/22 09:47 03/23/22 08:00 Objective Lab Results 03/23/22 08:04 03/23/22 08:04 Meds Allergies and Active Meds Allergies Penicillins Adverse Reaction (Verified 03/22/22 18:26) Difficulty Breathing Active Meds: Active Medications Generic Name Dose Route Start Last Admin Trade Name Freq PRN Reason Stop Dose Admin Acetaminophen 1,000 mg 03/23/22 03:29 03/23/22 04:12 Acetaminophen 500 Mg Tablet PO 03/23/23 03:28 1,000 mg Q6H PRN Administration Pain Apixaban 5 mg 03/23/22 09:00 03/24/22 09:44 Apixaban 5 Mg Tablet PO 03/23/23 08:59 5 mg BID SLIM Administration Atorvastatin Calcium 40 mg 03/23/22 09:00 03/24/22 09:44 Atorvastatin 40 Mg Tablet PO 03/23/23 08:59 40 mg DAILY SLIM Administration Canagliflozin 300 mg 03/23/22 07:30 03/24/22 05:20 Canagliflozin 300 Mg Tablet PO 03/23/23 07:29 300 mg DAILY.AC.BKFAST SLIM Administration Dextrose 0 gm 03/23/22 19:04 Dextrose 20 % In Water 10 Gm/50 Ml Syringe IV-PUSH 03/23/23 19:03 PRN PRN Hypoglycemia Digoxin 125 mcg 03/23/22 09:00 03/24/22 09:44 Digoxin 125 Mcg Tablet PO 03/23/23 08:59 125 mcg DAILY SLIM Administration Fluticasone Propionate 2 spray 03/23/22 09:00 03/24/22 09:44 Fluticasone Propionate [place] 120 [place]/16 Gm Bottle INTRANASAL 03/23/23 08:59 2 spray DAILY SLIM Administration Glucose 0 gm 03/23/22 19:04 Dextrose 40% Gel 15 Gm Tube PO 03/23/23 19:03 PRN PRN Hypoglycemia Lactated Ringer's 1,000 mls @ 75 mls/hr 03/23/22 19:00 03/24/22 09:02 Lactated Ringers IV 03/23/23 18:59 75 mls/hr .[id number] SLIM Administration Insulin Aspart Prota 70%/Aspart 30% 28 units 03/23/22 11:30 03/24/22 12:41 Insulin Aspart Protamin/Aspart 300 Units/3 Ml Insuln.Pen SUBCUT 03/23/23 11:29 Not Given DAILY.AC.LUNCH SLIM Insulin Aspart Prota 70%/Aspart 30% 34 units 03/23/22 16:30 03/23/22 18:51 Insulin Aspart Protamin/Aspart 300 Units/3 Ml Insuln.Pen SUBCUT 03/23/23 16:29 34 units DAILY.AC SUPPER SLIM Administration Insulin Aspart Prota 70%/Aspart 30% 38 units 03/23/22 07:30 03/24/22 09:45 Insulin Aspart Protamin/Aspart 300 Units/3 Ml Insuln.Pen SUBCUT 03/23/23 07:29 38 units DAILY.AC.BKFAST SLIM Administration Levothyroxine Sodium 25 mcg 03/23/22 06:30 03/24/22 05:20 Levothyroxine 25 Mcg Tablet PO 03/23/23 06:29 25 mcg DAILY@0630 SLIM Administration Melatonin 10 mg 03/23/22 22:00 03/23/22 21:24 Melatonin 5 Mg Tablet PO 03/23/23 21:59 10 mg HS SLIM Administration Metoprolol Succinate 25 mg 03/23/22 09:00 03/24/22 09:44 Metoprolol Succinate 25 Mg Tab.Er.24h PO 03/23/23 08:59 25 mg DAILY SLIM Administration Omeprazole 20 mg 03/23/22 09:00 03/24/22 09:45 Omeprazole 20 Mg Capsule.Dr PO 03/23/23 08:59 Not Given DAILY SLIM Sodium Chloride 0 ml 03/22/22 18:31 Sodium Chloride 0.9 % 10 Ml Syringe IV-PUSH 03/22/23 18:30 PRN PRN Flush Spironolactone 25 mg 03/23/22 09:00 03/24/22 09:44 Spironolactone 25 Mg Tablet PO 03/23/23 08:59 25 mg DAILY SLIM Administration Tamsulosin HCl 0.4 mg 03/23/22 09:00 03/24/22 09:44 Tamsulosin 0.4 Mg Cap.Er.24h PO 03/23/23 08:59 0.4 mg DAILY SLIM Administration A&P - Hospitalist Assessment/Plan (1) Altered mental status: (2) Elevated troponin: (3) Depressed: Plan Transient alteration in consciousness Etiology is not clear. Patient with recent COVID-19 infection during his prior admission. He did have a transient episode of what sounds to be aphasia, lasting about 30 minutes, according to spouse. Will obtain MRI brain. If positive, will do CTA head neck or alternative studies. It is possible however that he had encephalopathy related to COVID-19 infection. A component of pseudodementia related to untreated depression could be also present. Depression Has been chronic for years, has never been treated for it Recommended outpatient follow-up with PCP to manage depression as this could be contributing to his altered mental status MANFRED. CKD stage III. Renal function close to baseline. DC fluids. Elevated troponin Heart cath few days ago, minimal CAD. Medical therapy recommended Chronic conditions: Type 2 diabetes, hypertension, paroxysmal A. fib DVT prophylaxis: Mireya Chairez Diet: Full CODE STATUS: Full Documented By: Kevin Phillips MD 03/24/22 1509 Signed By: <Electronically signed by Kevin Phillips MD> 03/24/22 0668 [facility] Work Phone: 1(611) 224-647812-31-2022 Progress note Author Kevin Phillips [facility] March 23, 2022 2:07pm Note Date/Time March 23, 2022 9:36am [facility] [address] [place] [address] Hospitalist Progress Note Signed Patient: Jamel Bonds MR#: [id number] : 1935 Acct:[id number] Age/Sex: 86 / M Adm Date: 2 Loc: Room: [address] [place] [address] Type: ADM IN Attending Dr: Kevin Phillips MD Copies to: ~ Date of Service: 03/23/2022 Subjective Subjective Narrative: Attending note: I saw the patient personally on the day of encounter. I reviewed the relevant history, and performed the cheema elements of the physical examination. I reviewedthe relevant laboratory workup, radiological studies and the current treatment plan. I formulated the plan of care and confirmed it with the resident/student/MILL WORKER. Patient resting in bed comfortably. No at bedside. Does state that he remembers getting discharge from the hospital yesterday, does not quite remembergetting home. Does not remember the squad picking him back up and bring to the hospital. Patient was reevaluated with at bedside. states that she has never seen patient like this before and is very concerned for his health. 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 When she leftshe was sleeping in bed but when she got home he was standing at the sink cold and clammy, she thought maybe his sugar was low so went to get his materials to check as he is diabetic. Patient did not recognize her, was talking out of his head, refused to have his blood glucose checked and was fighting her to do anything. She states this is completely unlike him and has never happened before. Upon further questioning, both patient and admit that he has dealtwith depression for years and years and has never been treated for it. He is also grieving a good friend of his who a few weeks ago and states that his is actually where he got COVID. He did become tearful when discussing this. Exam Physical Exam Vital Signs: Temp Pulse Resp BP Pulse Ox O2 Del Method O2 Flow Rate 98.1 F 61 20 132/72 95 Room Air 2 03/23/22 08:00 03/23/22 08:13 03/23/22 08:00 03/23/22 08:00 03/23/22 08:00 03/23/22 08:00 03/23/22 08:00 Narrative: CONSTITUTIONAL: No apparent distress, alert, oriented to person, place. Is unsure of what year it is but is able to tell me the current president HEAD: Normocephalic, atraumatic EYES: EOMI, pupils equal and reactive, conjunctiva normal RESPIRATORY: No distress, lungs clear bilaterally, symmetric chest rise, no wheezes/rales/rhonchi CARDIOVASCULAR: Regular rate and regular rhythm, no murmurs, symmetric palpable dorsalis pedis pulses ABDOMEN: Soft, non-tender, non-distended, normal bowel sounds SKIN: Intact, no rash, no trauma NEURO: Cranial nerves grossly intact, no focal neurologic signs PSYCHIATRIC: Normal affect, slightly confused Objective Lab Results 03/23/22 08:04 03/23/22 08:04 Meds Allergies and Active Meds Allergies Penicillins Adverse Reaction (Verified 03/22/22 18:26) Difficulty Breathing Active Meds: Active Medications Generic Name Dose Route Start Last Admin Trade Name Petrona PRN Reason Stop Dose Admin Acetaminophen 1,000 mg 03/23/22 03:29 03/23/22 04:12 Acetaminophen 500 Mg Tablet PO 03/23/23 03:28 1,000 mg Q6H PRN Administration Pain Apixaban 5 mg 03/23/22 09:00 03/23/22 08:13 Apixaban 5 Mg Tablet PO 03/23/23 08:59 5 mg BID SLIM Administration Atorvastatin Calcium 40 mg 03/23/22 09:00 03/23/22 08:13 Atorvastatin 40 Mg Tablet PO 03/23/23 08:59 40 mg DAILY SLIM Administration Calcium Carbonate 1 tab 03/23/22 09:00 03/23/22 08:13 Calcium Carbonate/Vitamin D3 500 Mg/200 Unit Tablet PO 03/23/23 08:59 1 tab BID SLIM Administration Canagliflozin 300 mg 03/23/22 07:30 03/23/22 08:13 Canagliflozin 300 Mg Tablet PO 03/23/23 07:29 300 mg DAILY.AC.BKFAST SLIM Administration Digoxin 125 mcg 03/23/22 09:00 03/23/22 08:13 Digoxin 125 Mcg Tablet PO 03/23/23 08:59 125 mcg DAILY SLIM Administration Fluticasone Propionate 2 spray 03/23/22 09:00 03/23/22 08:14 Fluticasone Propionate [place] 120 [place]/16 Gm Bottle INTRANASAL 03/23/23 08:59 2 spray DAILY SLIM Administration Furosemide 40 mg 03/23/22 03:29 Furosemide 40 Mg Tablet PO 03/23/23 03:28 DAILY PRN Lower extremity swelling, abnormal weight gain,SOB Lactated Ringer's 1,000 mls @ 75 mls/hr 03/23/22 02:15 03/23/22 03:41 Lactated Ringers IV 03/23/23 02:14 75 mls/hr .[id number] SLIM Administration Magnesium Sulfate 2 gm in 50 mls @ 25 mls/hr 03/23/22 02:13 Magnesium Sulf 2gm-*Swfi* IV 03/23/23 02:12 DAILY PRN Magnesium < 1.6 Insulin Aspart Prota 70%/Aspart 30% 28 units 03/23/22 11:30 Insulin Aspart Protamin/Aspart 300 Units/3 Ml Insuln.Pen SUBCUT 03/23/23 11:29 DAILY.AC.LUNCH SLIM Insulin Aspart Prota 70%/Aspart 30% 34 units 03/23/22 16:30 Insulin Aspart Protamin/Aspart 300 Units/3 Ml Insuln.Pen SUBCUT 03/23/23 16:29 DAILY.AC SUPPER SLIM Insulin Aspart Prota 70%/Aspart 30% 38 units 03/23/22 07:30 03/23/22 09:23 Insulin Aspart Protamin/Aspart 300 Units/3 Ml Insuln.Pen SUBCUT 03/23/23 07:29 38 units DAILY.AC.BKFAST SLIM Administration Levothyroxine Sodium 25 mcg 03/23/22 06:30 03/23/22 05:38 Levothyroxine 25 Mcg Tablet PO 03/23/23 06:29 25 mcg DAILY@0630 SLIM Administration Loratadine 10 mg 03/23/22 03:29 Loratadine 10 Mg Tablet PO 03/23/23 03:28 DAILY PRN Allergy Symptoms Magnesium Oxide 400 mg 03/23/22 22:00 Magnesium Oxide 400 Mg Tablet PO 03/23/23 21:59 QHS SLIM Melatonin 10 mg 03/23/22 22:00 Melatonin 5 Mg Tablet PO 03/23/23 21:59 HS SLIM Metoprolol Succinate 25 mg 03/23/22 09:00 03/23/22 08:13 Metoprolol Succinate 25 Mg Tab.Er.24h PO 03/23/23 08:59 25 mg DAILY SLIM Administration Multivitamins 1 tab 03/23/22 09:00 03/23/22 08:13 Multivitamin 1 Tab Tablet PO 03/23/23 08:59 1 tab DAILY SLIM Administration Omeprazole 20 mg 03/23/22 09:00 03/23/22 09:23 Omeprazole 20 Mg Capsule.Dr PO 03/23/23 08:59 20 mg DAILY SLIM Administration Sodium Chloride 0 ml 03/22/22 18:31 Sodium Chloride 0.9 % 10 Ml Syringe IV-PUSH 03/22/23 18:30 PRN PRN Flush Spironolactone 25 mg 03/23/22 09:00 03/23/22 08:13 Spironolactone 25 Mg Tablet PO 03/23/23 08:59 25 mg DAILY SLIM Administration Tamsulosin HCl 0.4 mg 03/23/22 09:00 03/23/22 08:13 Tamsulosin 0.4 Mg Cap.Er.24h PO 03/23/23 08:59 0.4 mg DAILY SLIM Administration A&P - Hospitalist Assessment/Plan (1) Altered mental status: (2) Elevated troponin: (3) Depressed: Plan Transient alteration in consciousness Patient has not had issues with confusion or altered mental status in the past per family and patient himself Currently alert and oriented to person and place but not time Did not follow all commands in the ED CT head negative UA negative Given recent CT head negative and patient being on appropriate anticoagulation, even if a thrombolic event was present, he is on appropriate therapy No neurologic deficits at this time nor was there any neurologic deficits reported aside from confusion upon arrival to the ED PT/OT 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 hank ahn will highly recommend outpatient follow-up with PCP for treatment of depression Depression Has been chronic for years, has never been treated for it Recommended outpatient follow-up with PCP to manage depression as this could be contributing to his altered mental status MANFRED Continue fluid hydration Creatinine improved from 2.21 to 1.81 between discharge on 03/22 and admission on 03/23 Elevated troponin Chest had cath procedure performed on 03/21 without evidence of coronary artery disease Denies any chest pain, shortness of breath, cardiac symptoms Troponin had been uptrending during last admission (56, 71, 117, 130) Troponin was 156 upon reevaluation in the emergency department after discharge Unlikely to be ACS at this time given recent cath procedure in the last few daysand no cardiac symptoms Chronic conditions: Type 2 diabetes, hypertension, paroxysmal A. fib DVT prophylaxis: Xarelto, SCDs Diet: Full CODE STATUS: Full Documented By: Kevin Phillips MD 03/23/22 1632 Signed By: <Electronically signed by Kevin Phillips MD> 03/23/22 1407 <Electronically signed by DO ANTHONY Stevens> 03/23/22 1221 [facility] Work Phone: 1(252) 398-464912-31-2022 History and physical note Author Mikal Terry [facility] March 23, 2022 3:29am Note Date/Time March 22, 2022 9:20pm [facility] [address] [place] [address] Hospitalist H&P Signed Patient: Jamel Bonds MR#: [id number] : 1935 Acct:[id number] Age/Sex: 86 / M Adm Date: 2 Loc: 3T Room: [address] [place] [address] Type: ADM IN Attending Dr: Mikal Terry DO Copies to: Yariel Washington Kay,DO Mikal Terry, DO~ HPI DATE OF EXAMINATION: 03/22/22 CHIEF COMPLAINT: Altered mental status HISTORY OF PRESENT ILLNESS: This patient is an 86-year-old male who presented to the emergency department earlier this evening with reports of altered mental status. Of note he was discharged yesterday 03/22 after being admitted for generalized weakness. At that time he had resolving COVID-19 pneumonia and mild elevation in his cardiac troponins. He underwent angiogram which showed a decreased ejection fraction and mild to moderate coronary artery disease but no stent was placed. Xarelto was switched to Eliquis. In the emergency department the patient was intermittently disoriented per report and complained only of some mild headache. Vital signs revealed hypertension 194/61, respiratory rate of 20, heart rate 62, temperature 97.1 ?F,95% pulse oximetry on room air. Laboratory evaluation was fairly unremarkable showing a normal CBC however slight worsening of renal function. LFTs are within normal limits. Slight elevation in troponin of 156. Family is concernedthat the patient is off . CT of the head was negative for any acute findings. He was subsequently mated to the [facility] floor for further evaluation and treatment. Physical Examination: GENERAL APPEARANCE: Alert, minimally verbal, flat affect HEENT: NCAT, MMM NECK: Neck soft w/o masses, no JVD CARDIAC: Normal S1 and S2. No S3, S4 or murmurs. LUNGS: Clear to auscultation bilaterally. no wheeze/rhonchi/rales ABDOMEN: Positive bowel sounds. Soft, nontender. No guarding or signs of an acute abdomen MUSCULOSKELETAL: No joint erythema or tenderness. EXTREMITIES: No clubbing, cyanosis or edema PSYCHIATRIC: Flat affect Assessment and plan: 1. Altered mental status No obvious driving because of this. Certainly his advanced age and atherosclerotic risk factors put him at risk for vascular dementia. He is not exhibiting any psychotic symptoms but at the moment does seem somewhat confused. PT/OT. 2. Elevated troponin Unclear significance. This is slightly higher elevation than noted previously on recent admission. We will trend with a.m. labs however suspicion for any acute coronary syndrome remains quite low. Recently had catheterization as noted above. 3. Acute kidney injury IV fluids. Monitor with a.m. labs. 4. Insulin-dependent diabetes mellitus Continue home insulin regimen along with Farxiga 5. Paroxysmal atrial fibrillation Continue home Eliquis, metoprolol, digoxin 6. Hypertension Continue home medications, metoprolol, losartan, Aldactone 7. Hypothyroidism Continue home 25 mcg daily levothyroxine. Review of Systems Review of Systems All other systems reviewed & are negative unless noted below or in HPI PMFSH Vaccinated for COVID-19?: Unknown Medical History (Updated 03/22/22 @ 21:17 by Kenny Pittman MD) Diabetes History of pacemaker HTN (hypertension) Non-Hodgkin lymphoma Port-A-Cath in place Surgical History (Updated 03/22/22 @ 18:33 by Katja Hernandez, RN) History of cardiac catheterization Family History (Updated 03/20/22 @ 11:45 by Karla Chong RN) Mother Diabetes Mother Heart attack Grandparent Diabetes Grandparent Cancer Social History Smoking Status: Never smoker Substance Use Type: None Meds Medications and Allergies Allergies Penicillins Adverse Reaction (Verified 03/22/22 18:26) Difficulty Breathing Home Medications insulin aspar prot-insulin aspart 100 unit/mL (70-30) subcutaneous pen (Novolog Mix 70-30FlexPen U-100) 38 units subcut DAILY.AC.BKFAST 08/29/17 [History Confirmed 03/22/22] atorvastatin 40 mg tablet 40 mg PO DAILY 08/11/21 [History Confirmed 03/22/22] dapagliflozin 10 mg tablet (Farxiga) 10 mg PO DAILY.WITH.BKFAST 08/11/21 [History Confirmed 03/22/22] digoxin 125 mcg (0.125 mg) tablet 125 mcg PO DAILY 08/11/21 [History Confirmed 03/22/22] metoprolol succinate 25 mg tablet,extended release 24 hr 25 mg PO DAILY 08/11/21[History Confirmed 03/22/22] omeprazole 20 mg capsule,delayed release 20 mg PO DAILY 08/11/21 [History Confirmed 03/22/22] levothyroxine 25 mcg tablet 25 mcg PO DAILY 03/20/22 [History Confirmed 03/22/22] tamsulosin 0.4 mg capsule 0.4 mg PO DAILY 03/20/22 [History Confirmed 03/22/22] acetaminophen 500 mg tablet 1,000 mg PO Q6H PRN Pain 03/21/22 [History Confirmed 03/22/22] calcium carbonate 500 mg-vitamin D3 15 mcg (600 unit) tablet 1 tab PO BID 03/21/22 [History Confirmed 03/22/22] fluticasone propionate 50 mcg/actuation nasal spray,suspension 2 spray intranasal DAILY 03/21/22 [History Confirmed 03/22/22] insulin aspar prot-insulin aspart 100 unit/mL (70-30) subcutaneous pen (Novolog Mix 70-30FlexPen U-100) 28 unit subcut DAILY.AC.LUNCH 03/21/22 [History Confirmed 03/22/22] insulin aspar prot-insulin aspart 100 unit/mL (70-30) subcutaneous pen (Novolog Mix 70-30FlexPen U-100) 34 unit subcut DAILY.AC SUPPER 03/21/22 [History Confirmed 03/22/22] loratadine 10 mg tablet (Claritin) 10 mg PO DAILY PRN Allergy Symptoms 03/21/22 [History Confirmed 03/22/22] magnesium oxide 400 mg (241.3 mg magnesium) tablet 400 mg PO QHS 03/21/22 [History Confirmed 03/22/22] melatonin 10 mg tablet 10 mg PO HS 03/21/22 [History Confirmed 03/22/22] multivitamin 2 tab PO DAILY 03/21/22 [History Confirmed 03/22/22] apixaban 5 mg tablet (Eliquis) 5 mg PO BID #60 tabs 03/22/22 [Rx Confirmed 03/22/22] furosemide 40 mg tablet (Lasix) 40 mg PO DAILY PRN Lower extremity swelling, abnormal weight gain,SOB 30 days #30 tabs 03/22/22 [Rx Confirmed 03/22/22] losartan 50 mg tablet 50 mg PO BID 30 days #30 tabs 03/22/22 [Rx Confirmed 03/22/22] spironolactone 25 mg tablet 25 mg PO DAILY 30 days #30 tabs 03/22/22 [Rx Confirmed 03/22/22] Exam Physical Exam Vital Signs: Temp Pulse Resp BP Pulse Ox O2 Del Method 97.1 F L 60 20 165/77 H 91 L Room Air 03/22/22 18:27 03/22/22 21:00 03/22/22 21:00 03/22/22 21:00 03/22/22 21:00 03/22/22 21:00 Results Lab Results Labs: Laboratory Last Values Corrected WBC 8.8 X10E3/uL (4.1-10.5) 03/22/22 18:25 Uncorrected WBC Count 8.8 x10E3/uL (4.1-10.5) 03/22/22 18:25 RBC 4.90 X10E6/uL (3.90-5.60) 03/22/22 18:25 Hgb 14.8 g/dL (13.0-17.0) 03/22/22 18:25 Hct 44.3 % (38.8-50.0) 03/22/22 18:25 MCV 90.5 fl (83.5-101) 03/22/22 18:25 MCH 30.1 pg (27.5-35.2) 03/22/22 18: MCHC 33.3 g/dL (32.5-35.6) 03/22/22 18:25 RDW 14.7 % (12.0-14.8) 03/22/22 18: Plt Count 257 x10E3/uL (150-450) 03/22/22 18:25 MPV 7.5 fl (6.6-10.1) 03/22/22 18:25 Neut % (Auto) 72.6 % (.) 03/22/22 18: Lymph % (Auto) 11.4 % (.) 03/22/22 18:25 Twiggs % (Auto) 15.0 % (.) 03/22/22 18:25 Eos % (Auto) 0.7 % (.) 03/22/22 18: Baso % (Auto) 0.3 % (.) 03/22/22 18:25 Nucleat RBC Rel Count 0.2 /100 WBC (0-0.5) 03/22/22 18:25 Neut # (Auto) 6.4 x10E3/uL (1.8-7.7) 03/22/22 18:25 Lymph # (Auto) 1.0 x10E3/uL (1.00-4.8) 03/22/22 18:25 Twiggs # (Auto) 1.3 x10E3/uL (0.0-0.8) H 03/22/22 18:25 Eos # (Auto) 0.1 x10E3/uL (0.0-0.45) 03/22/22 18:25 Baso # (Auto) 0.0 x10E3/uL (0.0-0.2) 03/22/22 18:25 Monocyte Dist Width 27.64 % (0.00-20.00) H 03/22/22 18:25 PT 13.4 Seconds (9.0-12.9) H 03/22/22 18:25 INR 1.2 03/22/22 18:25 APTT 30.6 Seconds (25.1-36.5) 03/22/22 18:25 PHA Creatinine Clear 25.80 03/22/22 18:25 Sodium 135 mmol/L (136-146) L 03/22/22 18:25 Potassium 3.9 mmol/L (3.5-5.1) 03/22/22 18:25 Chloride 90 mmol/L (95-114) L 03/22/22 18:25 Carbon Dioxide 25.9 mmol/L (22.0-30.0) 03/22/22 18:25 Anion Gap 23.0 mEq/L (6.0-15.0) H 03/22/22 18:25 BUN 35 mg/dL (9-23) H 03/22/22 18:25 Creatinine 2.21 mg/dL (0.64-1.27) H 03/22/22 18:25 Est GFR ( Amer) 34 mL/Min 03/22/22 18:25 Est GFR (Non-Af Amer) 28 mL/Min 03/22/22 18:25 Glucose 126 mg/dL (70-100) H D 03/22/22 18:25 POC Glucose 125 mg/dl 03/22/22 18:26 Calcium 8.6 mg/dL (8.2-10.2) 03/22/22 18:25 Total Bilirubin 1.1 mg/dL (0.3-1.2) 03/22/22 18:25 AST 35 U/L (10-42) 03/22/22 18:25 ALT 24 U/L (10-60) 03/22/22 18:25 Alkaline Phosphatase 75 U/L (32-92) 03/22/22 18:25 Total Creatine Kinase 159 U/L (22-269) 03/22/22 18:25 CK-MB (CK-2) 2.5 ng/mL (0.6-6.3) 03/22/22 18:25 CK-MB (CK-2) Rel Index 1.5 % (0.00-2.50) 03/22/22 18:25 Troponin I High Sens 156 pg/mL (0-20) H* 03/22/22 18:25 Total Protein 8.0 gm/dL (6.1-7.9) H 03/22/22 18:25 Albumin 3.4 gm/dL (3.2-5.5) 03/22/22 18:25 Globulin 4.6 gm/dL 03/22/22 18:25 Albumin/Globulin Ratio 0.7 03/22/22 18:25 Urine Color Yellow (Yellow) 03/22/22 19:52 Urine Appearance Clear (Clear) 03/22/22 19:52 Urine pH 5.5 (5.0-9.0) 03/22/22 19:52 Ur Specific [place] 1.019 (1.001-1.030) 03/22/22 19:52 Urine Protein 300 mg/dL (Negative) H 03/22/22 19:52 Urine Glucose (UA) 500 mg/dL (Normal) H 03/22/22 19:52 Urine Ketones Negative (Negative) 03/22/22 19:52 Urine Occult Blood 1+ (Negative) H 03/22/22 19:52 Urine Nitrite Negative (Negative) 03/22/22 19:52 Urine Bilirubin Negative (Negative) 03/22/22 19:52 Urine Urobilinogen Normal mg/dL (Normal) 03/22/22 19:52 Ur Leukocyte Esterase Negative (Negative) 03/22/22 19:52 Urine RBC 5-9 /HPF (0-4) H 03/22/22 19:52 Urine WBC 3-4 /HPF (0-4) 03/22/22 19:52 Ur Squamous Epith Cells 3-4 /HPF (0-2) H 03/22/22 19:52 Ur Renal Epithelial Cell None seen /HPF (0-1) 03/22/22 19:52 Urine Bacteria None seen (None Seen) 03/22/22 19:52 Hyaline Casts 0-8 /LPF (0-8) 03/22/22 19:52 Fine Granular Casts 1-2 /LPF (0-1) H 03/22/22 19:52 Coarse Granular Casts 3-4 /LPF (0-1) H 03/22/22 19:52 Other Casts None seen /LPF (None Seen) 03/22/22 19:52 Documented By: Mikal Terry DO 03/22/22 21 16 Signed By: <Electronically signed by Mikal Terry DO> 03/23/22 0321 [facility] Work Phone: 1(754) 138-584612-30-2022 Progress note Author Eugene Burger [facility] March 22, 2022 10:12am Note Date/Time March 22, 2022 10:12am [facility] [address] [place] [address] Cardiology Progress Note Signed Patient: Jamel Bonds MR#: [id number] : 1935 Acct:[id number] Age/Sex: 86 / M Adm Date: 2 Loc: Room: [address] [place] [address] Type: ADM IN Attending Dr: Kevin Phillips MD Copies to: ~ Date of Service: 03/22/2022 Subjective Principal diagnosis: Type II NSTEMI, nonischemic cardiomyopathy Interval history: Mr. Bonds is doing well this morning. He has had no problems overnight after diagnostic left heart catheterization done via the right radial approach yesterday. He denies any chest pain or resting dyspnea. He has had no problemswith his right radial access site. He is having no problems with his augmented medical regimen for systolic heart failure and type II non-STEMI. He states he feels in his normal state of health and wishes to go home today. Exam Physical Exam Vital Signs: Temp Pulse Resp BP Pulse Ox O2 Del Method O2 Flow Rate 98.4 F 60 18 153/76 H 94 L Room Air 3 03/22/22 08:44 03/22/22 08:44 03/22/22 08:44 03/22/22 08:44 03/22/22 08:44 03/22/22 08:44 03/21/22 15:50 Const General: cooperative, healthy appearing, comfortable, no acute distress and other (Chest pain 0/10) Nutritional Appearance: average body habitus Orientation: alert, awake and oriented x3 HEENT Head: normal to inspection, normocephalic and atraumatic Mouth: moist mucous membranes Teeth and gingiva: fair dentition Eyes Pupils: PERRL and accommodation normal EOM: EOM intact bilaterally Direct ophthalmoscopy: no photophobia Neck Neck: no lymphadenopathy and supple Carotids: normal carotid upstroke Lymphatic: no lymphadenopathy noted Chest Chest palpation & inspection: normal inspection of the chest Resp Effort & Inspection: normal respiratory effort, able to speak in complete sentences and symmetric chest movement Auscultation: bronchovesicular breath sounds Cardio Jugular venous pressure: no JVD Palpation: normal PMI Rate: regular rate Rhythm: regular rhythm Heart Sounds: S1 normal, S2 normal and murmur systolic I/ Pulses: radial pulses present, posterior tibial pulses present and dorsalis pedis present GI Inspection: normal to inspection Palpation: soft and no hepatosplenomegaly Auscultation: normal bowel sounds Skin General: no rashes or lesions noted Trauma: no lacerations or abrasions Wounds: no wounds Neuro General: patient alert, patient awake, patient oriented x3, moves all extremities and no focal motor deficits Cranial Nerves: CN's II-XII intact bilaterally Cognition: normal cognition Speech: speech normal Motor: muscle tone normal throughout Sensory Exam: no sensory deficits noted Extrem General: no clubbing, cyanosis or edema Other: Right radial access site with bandage in place. No hematoma 2+ pulse. Psych Mental Status: mental status grossly normal Mood: irritable mood Affect: irritable affect Speech and Movement: speech and movement normal Attitude: cooperative Thought Process: normal Thought Content: normal Insight: fair Judgment: judgment good Objective Labs 03/22/22 04:47 03/22/22 04:47 Labs: Laboratory Results - last 24 hr 03/21/22 03/21/22 03/21/22 08:30 11:46 12:28 Corrected WBC Uncorrected WBC Count RBC Hgb Hct MCV MCH MCHC RDW Plt Count MPV Neut % (Auto) Lymph % (Auto) Twiggs % (Auto) Eos % (Auto) Baso % (Auto) Nucleat RBC Rel Count Neut # (Auto) Lymph # (Auto) Twiggs # (Auto) Eos # (Auto) Baso # (Auto) PHA Creatinine Clear Sodium Potassium Chloride Carbon Dioxide Anion Gap BUN Creatinine Est GFR ( Amer) Est GFR (Non-Af Amer) Glucose POC Glucose 65 98 POC Glucose Comment Glu2: cleaned meter Glu2: cleaned meter Calcium Vovici Positive A 03/21/22 03/21/22 03/21/22 12:53 15:55 16:40 Corrected WBC Uncorrected WBC Count RBC Hgb Hct MCV MCH MCHC RDW Plt Count MPV Neut % (Auto) Lymph % (Auto) Twiggs % (Auto) Eos % (Auto) Baso % (Auto) Nucleat RBC Rel Count Neut # (Auto) Lymph # (Auto) Twiggs # (Auto) Eos # (Auto) Baso # (Auto) PHA Creatinine Clear Sodium Potassium Chloride Carbon Dioxide Anion Gap BUN Creatinine Est GFR ( Amer) Est GFR (Non-Af Amer) Glucose POC Glucose 91 83 110 POC Glucose Comment Glu2: cleaned meter Glu2: cleaned meter Glu2: cleaned meter Calcium Vovici 03/21/22 03/21/22 03/21/22 17:11 20:15 22:02 Corrected WBC Uncorrected WBC Count RBC Hgb Hct MCV MCH MCHC RDW Plt Count MPV Neut % (Auto) Lymph % (Auto) Twiggs % (Auto) Eos % (Auto) Baso % (Auto) Nucleat RBC Rel Count Neut # (Auto) Lymph # (Auto) Twiggs # (Auto) Eos # (Auto) Baso # (Auto) PHA Creatinine Clear Sodium Potassium Chloride Carbon Dioxide Anion Gap BUN Creatinine Est GFR ( Amer) Est GFR (Non-Af Amer) Glucose POC Glucose 164 167 230 POC Glucose Comment Glu2: cleaned meter Calcium Vovici 03/22/22 03/22/22 03/22/22 04:47 04:47 06:36 Corrected WBC 7.4 Uncorrected WBC Count 7.4 RBC 4.42 Hgb 13.4 Hct 40.0 MCV 90.7 MCH 30.3 MCHC 33.5 RDW 15.1 H Plt Count 232 MPV 7.9 Neut % (Auto) 69.4 Lymph % (Auto) 14.6 Twiggs % (Auto) 14.9 Eos % (Auto) 0.9 Baso % (Auto) 0.2 Nucleat RBC Rel Count 0.2 Neut # (Auto) 5.1 Lymph # (Auto) 1.1 Twiggs # (Auto) 1.1 H Eos # (Auto) 0.1 Baso # (Auto) 0.0 PHA Creatinine Clear 28.73 Sodium 132 L Potassium 4.0 Chloride 95 Carbon Dioxide 26.0 Anion Gap 15.0 BUN 35 H Creatinine 1.88 H Est GFR ( Amer) 41 Est GFR (Non-Af Amer) 34 Glucose 261 H D POC Glucose 222 POC Glucose Comment Calcium 8.1 L COVID-19 Clin Com A&P - Cardiology (1) Elevated troponin: Assessment/Problem Details: Type II NSTEMI stemming from recent viral pulmonary infection versus episode of mild decompensated systolic heart failure in the setting of LV systolic dysfunction (LVEF approximately 35% by left ventriculography). Code(s): R77.8 - Other specified abnormalities of plasma proteins Status: Acute Plan: 1. Patient is safe and ready for discharge to home today. 2. No lifting greater than equal to 10 pounds for 5 days with the right arm. 3. On discharge increase losartan dose to 100 mg daily 4. On discharge change metoprolol succinate dosing to 25 mg nightly 5. On discharge increase spironolactone dosing to 25 mg every morning 6. Supply prescription for Lasix 40 mg daily to take 1/2-hour after spironolactone dose as needed lower extremity swelling, abnormal weight gain, abnormal shortness of breath. 7. Resume Xarelto 20 mg daily. Apixaban is also listed in the patient's medication list. The patient should not be on both he should be on a single agent DOAC with Xarelto 20 mg daily 8. Please make sure that the patient is written for an outpatient lab check a basic metabolic panel on Friday to monitor renal function. Please have results sent to Dr. Franklin's attention at [facility]. 9. We will make sure that the patient has outpatient follow-up with Dr. Llanes [facility] within 3 weeks. At that time discussion can be entertained regarding the patient's potential candidacy for upgrade to [employer] DEAN-D given likelihood that his nonischemic cardiomyopathy with left ventricular systolic dysfunction may be related to chronic right ventricular apical pacing. (2) S/P placement of cardiac pacemaker: Assessment/Problem Details: Normal dual-chamber pacemaker function in the setting of sick sinus syndrome with a majority of time spent V pacing. This may be the source for the patient's slowly progressive left ventricular systolic dysfunction. Code(s): Z95.0 - Presence of cardiac pacemaker Status: Acute Plan: No change in device parameters is recommended at this time. As above, in the outpatient setting we can consider the patient's candidacy for upgrade to [employer] DEAN D. Plan Thank you very much for this kind consultation. Time spent with patient Time Spent With Patient (min): 30 Documented By: Eugene Burger MD 03/22/22 1002 Signed By: <Electronically signed by Eugene Burger MD> 03/22/22 1012 [facility] Work Phone: 1(319) 437-713712-29-2022 Progress note Author Kevin Phillips [facility] March 21, 2022 4:31pm Note Date/Time March 21, 2022 12:49pm [facility] [address] [place] [address] Hospitalist Progress Note Signed Patient: Jamel Bonds MR#: [id number] : 1935 Acct:[id number] Age/Sex: 86 / M Adm Date: 2 Loc: Room: [address] [place] [address] Type: ADM IN Attending Dr: Kevin Phillips MD Copies to: ~ Date of Service: 03/21/2022 Subjective Subjective Narrative: Attending note: I saw the patient personally on the day of encounter. I reviewed the relevant history, and performed the cheema elements of the physical examination. I reviewedthe relevant laboratory workup, radiological studies and the current treatment plan. I formulated the plan of care and confirmed it with the resident/student/MILL WORKER. Patient resting comfortably in bed. at bedside. Patient is still decidingwhether or not to have the cath procedure, Dr. Meeks at bedside. Exam Physical Exam Vital Signs: Temp Pulse Resp BP Pulse Ox O2 Del Method 97.9 F 60 18 120/66 93 L Room Air 03/21/22 11:19 03/21/22 11:19 03/21/22 11:19 03/21/22 11:19 03/21/22 11:19 03/21/22 11:19 Narrative: CONSTITUTIONAL: No apparent distress HEAD: Normocephalic, atraumatic EYES: EOMI, pupils equal and reactive, conjunctiva normal CARDIOVASCULAR: Regular rate and regular rhythm ABDOMEN: Soft, non-tender, non-distended, normal bowel sounds SKIN: Intact, no rash, no trauma NEURO: Cranial nerves grossly intact, no focal neurologic signs PSYCHIATRIC: Normal affect Objective Lab Results 03/20/22 10:22 03/21/22 04:55 Meds Allergies and Active Meds Allergies Penicillins Adverse Reaction (Verified 03/20/22 10:09) Difficulty Breathing Active Meds: Active Medications Generic Name Dose Route Start Last Admin Trade Name Freq PRN Reason Stop Dose Admin Acetaminophen 1,000 mg 03/20/22 12:29 Acetaminophen 500 Mg Tablet PO 03/20/23 12:28 Q6HR PRN Pain Scale 1 - 3 or fever Atorvastatin Calcium 40 mg 03/21/22 09:00 03/21/22 08:18 Atorvastatin 40 Mg Tablet PO 03/21/23 08:59 40 mg DAILY SLIM Administration Canagliflozin 100 mg 03/22/22 09:00 Canagliflozin 100 Mg Tablet PO 03/22/23 08:59 DAILY SLIM Dextrose 0 gm 03/21/22 11:56 03/21/22 12:07 Dextrose 20 % In Water 10 Gm/50 Ml Syringe IV-PUSH 03/21/23 11:55 10 gm PRN PRN Administration Hypoglycemia Digoxin 125 mcg 03/21/22 09:00 03/21/22 08:18 Digoxin 125 Mcg Tablet PO 03/21/23 08:59 125 mcg DAILY SLIM Administration Furosemide 40 mg 03/20/22 16:00 03/21/22 08:19 Furosemide 40 Mg/4 Ml Vial IV-PUSH 03/20/23 15:59 40 mg BID@0800,1600 SLIM Administration Glucose 0 gm 03/21/22 11:54 Dextrose 40% Gel 15 Gm Tube PO 03/21/23 11:53 PRN PRN Hypoglycemia Guaifenesin 1,200 mg 03/20/22 21:00 03/21/22 08:18 Guaifenesin 600 Mg Tab.Er.12h PO 03/20/23 20:59 1,200 mg BID SLIM Administration Sodium Chloride 1,000 mls @ 250 mls/hr 03/21/22 11:15 03/21/22 11:56 0.9% Sodium Chloride 1,000 Ml IV 03/21/23 11:14 250 mls/hr .Q4H SLIM Administration Insulin Aspart 0 units 03/20/22 17:00 03/21/22 11:56 Insulin Aspart 300 Units/3 Ml Insuln.Pen SUBCUT 03/20/23 16:59 Not Given TID.WM.HS SLIM Protocol Insulin Aspart Prota 70%/Aspart 30% 34 units 03/20/22 17:00 03/20/22 18:13 Insulin Aspart Protamin/Aspart 300 Units/3 Ml Insuln.Pen SUBCUT 03/20/23 16:59 34 units DAILY.WITH.SUPPER SLIM Administration Insulin Aspart Prota 70%/Aspart 30% 38 units 03/21/22 08:00 03/21/22 08:19 Insulin Aspart Protamin/Aspart 300 Units/3 Ml Insuln.Pen SUBCUT 03/21/23 07:59 38 units DAILY.WITH.BKFAST SLIM Administration Insulin Aspart Prota 70%/Aspart 30% 28 units 03/21/22 12:00 03/21/22 11:56 Insulin Aspart Protamin/Aspart 300 Units/3 Ml Insuln.Pen SUBCUT 03/21/23 11:59 Not Given DAILY.WITH.LUNCH SLIM Levothyroxine Sodium 25 mcg 03/21/22 06:30 03/21/22 05:55 Levothyroxine 25 Mcg Tablet PO 03/21/23 06:29 Not Given DAILY@0630 SLIM Losartan Potassium 50 mg 03/21/22 09:00 03/21/22 08:18 Losartan 50 Mg Tablet PO 03/21/23 08:59 50 mg DAILY SLIM Administration Melatonin 5 mg 03/20/22 12:29 03/20/22 21:56 Melatonin 5 Mg Tablet PO 03/20/23 12:28 5 mg QHS PRN Administration Insomnia Metoprolol Succinate 25 mg 03/21/22 09:00 03/21/22 08:18 Metoprolol Succinate 25 Mg Tab.Er.24h PO 03/21/23 08:59 25 mg DAILY SLIM Administration Miscellaneous Information 1 each 03/21/22 11:12 Consult To Pharmacy MISCELLANE 03/21/23 11:11 .PHACONSULT PRN ZZ.Pharmacy Consult Protocol Omeprazole 20 mg 03/21/22 09:00 03/21/22 08:18 Omeprazole 20 Mg Capsule.Dr PO 03/21/23 08:59 20 mg DAILY SLIM Administration Potassium Chloride 40 meq 03/21/22 11:12 Potassium Chloride Er 20 Meq Tab.Er.Prt PO STAT PRN Hypokalemia Promethazine HCl 12.5 mg 03/20/22 12:29 Promethazine 25 Mg/Ml Vial IM 03/20/23 12:28 Q4H PRN Nausea And Vomiting Rivaroxaban 15 mg 03/20/22 17:00 03/20/22 17:02 Rivaroxaban 15 Mg Tablet PO 03/20/23 16:59 15 mg DAILY.WITH.SUPPER SLIM Administration Sodium Chloride 0 ml 03/20/22 10:08 Sodium Chloride 0.9 % 10 Ml Syringe IV-PUSH 03/20/23 10:07 PRN PRN Flush Sodium Chloride 0 ml 03/21/22 11:12 Sodium Chloride 0.9 % 10 Ml Syringe IV-PUSH 03/21/23 11:11 PRN PRN Flush Spironolactone 12.5 mg 03/21/22 09:00 03/21/22 08:18 Spironolactone 12.5 Mg Tablet PO 03/21/23 08:59 12.5 mg DAILY SLIM Administration Tamsulosin HCl 0.4 mg 03/21/22 09:00 03/21/22 08:18 Tamsulosin 0.4 Mg Cap.Er.24h PO 03/21/23 08:59 0.4 mg DAILY SLIM Administration A&P - Hospitalist Assessment/Plan (1) Elevated troponin: (2) COVID-19: (3) Afib: Plan Elevated troponin Continue telemetry, trend troponins Troponins with slight increase since admission (56, 71, 117, 130) Cardiology following, spoke with and patient regarding cath procedure Echo pending Generalized weakness likely due to COVID-19 PT OT Positive test 03/15 Chronic conditions: Type 2 diabetes, hypertension, paroxysmal A. fib DVT prophylaxis: Xarelto, SCDs Diet: Full CODE STATUS: Full Documented By: Kevin Phillips MD 03/21/22 1243 Signed By: <Electronically signed by Kevin Phillips MD> 03/21/22 1631 <Electronically signed by DO ANTHONY Stevens> 03/21/22 1249 [facility] Work Phone: 1(648) 368-997812-29-2022 [facility] Consult note Author Eugene Burger [facility] March 20, 2022 6:15pm Note Date/Time March 20, 2022 6:14pm [facility] [address] [place] [address] Cardiology Consult Note Signed Patient: Jamel Bonds MR#: [id number] : 1935 Acct:[id number] Age/Sex: 86 / M Adm Date: 2 Loc: Room: [address] [place] [address] Type: ADM IN Attending Dr: Kevin Phillips MD Copies to: MD Yariel Kaufman DO Stephen M Tann, MD~ Cardiology HPI History of Present Illness Consult Date: 03/20/22 Reason for Consult: Abnormal serum troponin HPI: Mr. Bonds is a 86 year old male with no known coronary heart disease but a history of sick sinus syndrome status post dual-chamber pacemaker placement doneseveral years ago by Dr. Franklin who was admitted through the emergency department to the inpatient hospital medicine service today after presenting complaining of increasing shortness of breath. The patient apparently did do a home COVID test last Friday which was positive. His primary complaint has been cough and shortness of breath. In the emergency department today ECG showed no acute ischemic changes. Initial troponin was minimally positive at 17. B-type natriuretic peptide level was elevated at 1700. Serial troponins have continuedto increase although the absolute magnitude of the troponin curve is still quitesmall with thus far a peak at 71. The patient denies any current or recent chest pain chest pressure or other anginal symptoms. Given the abnormal troponin I am now consulted for further cardiac evaluation and management. Review of Systems Review of Systems All other systems reviewed & are negative unless noted below or in HPI PMFSH Vaccinated for COVID-19?: Yes Medical History (Updated 03/20/22 @ 11:17 by Bennie Renae DO) Diabetes History of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 (MAG-OX) 400 mg (241.3 mg magnesium) tablet Take 400 mg by mouth. Antacid - Magnesium melatonin 1 mg tablet melatonin 10 mg 1 tab at bedtime Hypnotics - Melatonin - Single Agents multivit-min/FA/lycopen/lutein (CENTRUM SILVER MEN ORAL) Centrum Silver Men 2 QD Multivitamin and Mineral Combinations MULTIVITAMIN ORAL multivitamin and minerals no.11-folic acid 5 mg tablet Take 1 tablet twice a day by oral route. Multivitamins Nut.Tx.Gluc.Intol,Lac-Free,Soy (GLUCERNA SNACK SHAKE) liqd Take 237 mL by mouth three times daily with meals. Nutritional Product - Nutritional Therapy omeprazole (PRILOSEC) 20 mg capsule omeprazole 20 mg capsule,delayed release Take 1 capsule every day by oral route. Gastric Acid Secretion Tool Operator - Proton Pump Inhibitors (PPIs) traMADol (ULTRAM) 50 mg tablet tramadol 50 mg tablet Analgesic Opioid Agonists triamcinolone acetonide (KENALOG) 0.1 % cream triamcinolone acetonide 0.1 % topical cream APPLY A THIN LAYER TO THE AFFECTED AREA(S) BY TOPICAL ROUTE 2 TIMES PER DAY Dermatological - Glucocorticoid Past History, Medications, Allergies PAST MEDICAL HISTORY Diagnosis Date Diabetes mellitus, type 2 (HCC) Epiretinal membrane ou Fuchs' corneal dystrophy Hypertension Malignant neoplasm of prostate (HCC) 2007 Prostate cancer Non Hodgkin's lymphoma (HCC) 2011 Port-A-Cath in place PVD (posterior vitreous detachment) [...] Social History Tobacco Use Smoking status: Never Smokeless tobacco: Never Vaping Use Vaping Use: Never used Substance Use Topics Alcohol use: No Drug [...] and dizziness or syncope. Physical examination BP 142/72 Pulse 62 Ht 170.2 cm (5' 7 ) Wt 78.5 kg (173 lb) BMI 27.10 kg/m General appearance: Well appearing, alert, in no acute distress, well-hydrated, well nourished. Skin: Skin color, texture, turgor normal, no suspicious rashes or lesions HEART: normal rate LUNGS: unlabored, normal respiratory rate EXTREMITIES No deformities, No skin discoloration and No edema NEURO: Speech normal, mental status intact, no tremor noted. Previous Laboratory Results LABS Glucose (mg/dL) Date Value 07/10/2021 193 04/02/2021 197 02/19/2021 168 08/22/2020 147 Potassium (mmol/L) Date Value 07/10/2021 5.0 04/02/2021 4.5 Sodium (mmol/L) Date Value 07/10/2021 144 04/02/2021 137 02/19/2021 140 08/22/2020 142 Chloride (mmol/L) Date Value 07/10/2021 103 04/02/2021 98 02/19/2021 100 08/22/2020 102 CO2 (mmol/L) Date Value 07/10/2021 30 04/02/2021 29 02/19/2021 29 08/22/2020 30 Creatinine (mg/dL) Date Value 07/10/2021 1.47 04/02/2021 1.39 02/19/2021 1.41 08/22/2020 1.31 BUN (mg/dL) Date Value 07/10/2021 32 04/02/2021 25 02/19/2021 32 08/22/2020 28 Anion Gap (mmol/L) Date Value 07/10/2021 11 04/02/2021 10 02/19/2021 11 08/22/2020 10 Calcium (mg/dL) Date Value 04/02/2021 9.5 02/19/2021 9.5 08/22/2020 9.7 Calcium, Total (mg/dL) Date Value 07/10/2021 10.1 eGFR- (no units) Date Value 04/02/2021 59 02/19/2021 58 08/22/2020 >60 eGFR-All Other Races (.) Date Value 04/02/2021 49 02/19/2021 48 08/22/2020 52 Estimated Glomerular Filtration Rate (mL/min/1.73m ) Date Value 07/10/2021 47 ALT (U/L) Date Value 07/10/2021 34 04/02/2021 27 02/19/2021 26 08/22/2020 33 TSH Date Value Ref Range Status 04/02/2021 2.380 0.270 - 4.200 uU/mL Final 05/16/2020 2.370 0.270 - 4.200 uU/mL Final 10/06/2019 2.670 0.270 - 4.200 uU/mL Final Free T4 Date Value Ref Range Status 04/02/2021 1.3 0.9 - 1.7 ng/dL Final 05/16/2020 1.2 0.9 - 1.7 ng/dL Final 12/10/2018 1.1 0.9 - 1.7 ng/dL Final Impression/Recommendations IMPRESSION Jamel Bonds is a 85 year old here for 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 RECOMMENDATIONS: 1. Glycemic control: Target HbA1C is less than 7.0% per ADA guidelines. Goal for him given age/comorbidities is 7-8%. HbA1c is at goal. POC readings available have improved from prior visits. Plan Continue: Novolog 70/30 -- 38 units with breakfast, 28 units with lunch, and 34 units with dinner Farxiga 10 mg daily Check your blood sugar 3 times daily and record in log book to bring to all appointments. Bring your meter to all appointments as well. Glucose targets as: Fasting 90-130, before meals 100-130, and bedtime under 150 mg/dL. Notify office for consistently elevated or any low blood sugars <70 Follow up with me in 4 months with labs prior The patient was reminded to check their [...] diabetes is 130/80. -- This patient is not at target on current regimen. I will defer management of this to their primary care physician. 3. Lipids: Target LDL cholesterol in patients with diabetes is less than 100, less than 70 if patient has overt CVD. Several studies have shown cardiovascular benefits of statin therapy in all patients with diabetes over age 40 with at least 1 CVD risk factor. Cholesterol, Total Date Value Ref Range Status 04/02/2021 138 <200 mg/dL Final Comment: <200 mg/dL, Desirable 200-239 mg/dL, Borderline high >239 mg/dL, High HDL Cholesterol Date Value Ref Range Status 04/02/2021 34 (L) >39 mg/dL Final Comment: 40-59 mg/dL, Acceptable >59 mg/dL, High: Negative risk factor for coronary heart disease <40 mg/dL, Low: Positive risk factor for coronary heart disease LDL Cholesterol Date Value Ref Range Status 04/02/2021 70 <100 mg/dL Final Comment: <100 mg/dL, Optimal 100-129 mg/dL, Near optimal/above optimal 130-159 mg/dL, Borderline high 160-189 mg/dL, High >189 mg/dL, Very high Secondary prevention optimal LDL Cholesterol levels are recommended to be < 70 mg/dL Triglyceride Date Value Ref Range Status 04/02/2021 172 (H) <150 mg/dL Final Comment: <150 mg/dL, Normal 150-199 mg/dL, Borderline high 200-499 mg/dL, High >499 mg/dL, Very high -- This patient is currently at target on statin therapy. -- Managed by cardiology (Dr. Jacinto Chatman) 4. Nephropathy screening: Annual measurement of urine albumin excretion is recommended in patients with diabetes. Albumin/Creat Ratio (mg/g) Date Value 07/10/2021 125 (H) 04/02/2021 165 (H) Creatinine, Ur Random (UCRR) (mg/dL) Date Value 07/10/2021 87.0 04/02/2021 85.3 -- This patient has microalbuminuria and is on BRIAN-I or ARB therapy. On SGLT2i as well. 5. Ophthalmology: Annual dilated eye exams are recommended for patients with type 1 and type 2 diabetes. -- This patient is up to date with their annual eye exam and has no history of retinopathy. -- Last seen 10/2020 6. Hypothyroidism: -- Clinically and biochemically euthyroid. -- Continue LT-4 25 mcg daily. -- Recheck TSH prior to follow up. Patient to continue to follow up with his PCP and with other consultants regarding his other medical problems. Any part of this document that has been added/copied & pasted from other documents has been reviewed for accuracy and updated as appropriate at the time of the patient encounter Arnold Handley APRN.CNP documented in this encounterK[facility]05-16-[facility]22 Miscellaneous Notes* Telephone Encounter - Khoa Bartlett MA - 08/06/2021 11:27 AM EDT Requester: Pharmacy Patients last Endocrinology visit occurred 07/17/21. Follow-up evaluation has been established 11/09/21. Pending Prescriptions Disp Refills PEN NEEDLE, DIABETIC 32 GAUGE X 5/32 200 Each 3 Sig: USE DIRECTED TWICE DAILY with insulin injections IMTIAZ: No documented in this encounterKet[facility]04-26-2022 Instructions* Patient Instructions* Arnold Handley APRN.CNP - 07/17/2021 12:19 PM EDT PLAN Continue insulin doses 38 with breakfast, 28 with lunch, and 34 with dinner Increase Farxiga to 10 mg daily Follow up with me in 3 months documented in this encounterK[facility]04-26-2022 History of Present illness Narrative* Arnold Handley APRN.CNP - 07/17/2021 11:32 AM EDT HISTORY OF PRESENT ILLNESS: Jamel Solanoleon is here today for a type 2 diabetes follow up visit. Last visit with me was 03/2021 at which time we added Farxiga. HbA1c is 8.4%. He reports he is taking his insulin after meals (sometimes 2-3 hours after). DM regimen: Novolog 70/30 AC TID 38-28-34 units Farxiga 5 mg daily On LT4 25 mcg daily SMBG Type of Monitor: Accu-chek Crystal Frequency of Monitorin-3 times daily. Fastin, 131, 133, 134, 100, 181, 205 Lunch: 133, 250, 173 Dinner: 144 Hypoglycemia: none Diet: low CHO, portion control, some dietary indiscretion, mostly vegetarian, more meat lately 4 AM: Breakfast- Glucerna glucose control and banana 11-12 PM: Dinner 5-6 PM: Supper Exercise: no regular exercise program; active throughout the day at his [employer] shop. Last Eye Exam: 10/2020- no DR PAST MEDICAL HISTORY Diagnosis Date Diabetes mellitus, type 2 (HCC) Epiretinal membrane ou Fuchs' corneal dystrophy Hypertension Malignant neoplasm of prostate (HCC) 2007 Prostate cancer Non Hodgkin's lymphoma (HCC) 2011 Port-A-Cath in place PVD (posterior vitreous detachment) Family History Problem Relation Age of Onset Diabetes Father No Ocular Disease Father Diabetes Maternal Grandmother Cancer Maternal Grandmother No Ocular Disease Mother Current Outpatient Medications Medication Sig dapagliflozin (FARXIGA) 5 mg tablet Take 1 tablet by mouth daily with breakfast. insulin aspart protamine-insulin aspart (NovoLOG 70-30) 100 unit/mL flexpen Inject subcutaneously 38 units with breakfast, 28 units with lunch, and 34 units with dinner atorvastatin (LIPITOR) 40 mg tablet Take 40 mg by mouth daily at bedtime. magnesium oxide (MAG-OX) 400 mg (241.3 mg magnesium) tablet Take 400 mg by mouth. blood sugar diagnostic (CONTOUR NEXT TEST STRIPS) test strip Test 3 x daily. niddm e11.9 Lancets (MICROLET LANCET) lancets Use 3 x daily to check blood sugar. NIDDM e11.9. Patient has CONTOUR NEXT ONE METER. traMADol (ULTRAM) 50 mg tablet tramadol 50 mg tablet loratadine (CLARITIN) 10 mg tablet as needed. baclofen (LIORESAL) 10 mg tablet baclofen 10 mg tablet (Patient not taking: baclofen 10 mg tablet) multivit-min/FA/lycopen/lutein (CENTRUM SILVER MEN ORAL) Centrum Silver Men 2 QD melatonin 1 mg tablet melatonin 10 mg 1 tab at bedtime (Patient not taking: melatonin 10 mg 1 tab at bedtime) MULTIVITAMIN ORAL multivitamin and minerals no.11-folic acid 5 mg tablet Take 1 tablet twice a day by oral route. jdhmvmd-uwmsfwobm-xgzxiqn D3 (OS-BESSY 500+D) 500 mg(1,250mg) -200 unit per tablet Os-Bessy 500 + D3 1 tab twice a day (Patient not taking: ) Lactobac no.41-Bifidobact no.7 (PROBIOTIC-10) 70 mg (3 billion cell) cap Probiotic 1 tab daily triamcinolone acetonide (KENALOG) 0.1 % cream triamcinolone acetonide 0.1 % topical cream APPLY A THIN LAYER TO THE AFFECTED AREA(S) BY TOPICAL ROUTE 2 TIMES PER DAY (Patient not taking: triamcinolone acetonide 0.1 % topical cream APPLY A THIN LAYER TO THE AFFECTED AREA(S) BY TOPICAL ROUTE 2 TIMES PER DAY) Insulin Reasnor, Disposable, ([employer] PENTIPS PLUS) 32 gauge x ndle USE DIRECTED TWICE DAILY with insulin injections levothyroxine (SYNTHROID) 25 mcg tablet Take 1 tablet by mouth once daily. digoxin (LANOXIN) 125 mcg tablet Take 0.125 mg by mouth once daily. omeprazole (PRILOSEC) 20 mg capsule omeprazole 20 mg capsule,delayed release Take 1 capsule every day by oral route. metoprolol succinate ER (TOPROL XL) 25 mg 24 hr tablet Take 25 mg by mouth once daily. XARELTO 20 mg tablet fluticasone (FLONASE) 50 mcg/actuation nasal spray 1 [place] as needed. losartan (COZAAR) 50 mg tablet Take 50 mg by mouth as needed. Cholecalciferol, Vitamin D3, (VITAMIN D-3) 2,000 unit cap Take 2,000 mg by mouth once daily. Nut.Tx.Gluc.Intol,Lac-Free,Soy (GLUCERNA SNACK SHAKE) liqd Take 237 mL by mouth three times daily with meals. 0.9% NaCl NURSING USE ONLY: USED FOR IMPLANTED VASCULAR ACCESS DEVICE (IVAD) ACCESS. AMBULATORY/OUTPATIENT: PLEASE REORDER UPON HOSPITAL DISCHARGE May access implanted vascular access device (IVAD) as needed for treatment. Flush IVAD with 10-20 mL NS every 4 weeks and PRN when IVAD not in use. (Patient not taking: Reported on 02/19/2021 ) heparin 100 unit/mL syrg NURSING USE ONLY: USE FOR IMPLANTED VASCULAR ACCESS DEVICE (IVAD) FLUSH.AMBULATORY/OUTPATIENT: PLEASE REORDER UPON HOSPITAL DISCHARGE May access implanted vascular access device (IVAD) as needed for treatment. Before de-accessing port, flush with 10-20ml normal saline and follow with 5 mL heparin (100 units/mL) (if no heparin allergy). De-access port on treatment completion. (Patient not taking: Reported on 02/19/2021 ) No current facility-administered medications for this visit. REVIEW OF SYSTEMS: GENERAL: No weight loss, malaise or fevers RESPIRATORY: Negative for cough, hemoptysis, wheezing, COPD, dyspnea or shortness of breath CARDIOVASCULAR: Negative for chest pain, leg swelling, CHF or palpitations GI: No nausea, vomiting, or diarrhea ENDOCRINE: Negative for cold or heat intolerance, polyuria, polydipsia and goiter NEUROLOGIC:Negative for focal numbness or weakness, headaches and dizziness or syncope. PHYSICAL EXAM: BP 142/80 Pulse 60 Ht 172.7 cm (5' 8 ) Wt 78.5 kg (173 lb) BMI 26.30 kg/m General appearance: Well appearing, alert, in no acute distress, well-hydrated, well nourished. Skin: Skin color, texture, turgor normal, no suspicious rashes or lesions HEART: normal rate LUNGS: unlabored, normal respiratory rate EXTREMITIES No deformities, No skin discoloration and No edema NEURO: Speech normal, mental status intact, no tremor noted. LABS Component Hemoglobin A1C Latest Ref Rng & Units 4.3 - 5.6 % 08/22/2020 7.9 (H) 04/02/2021 8.4 (H) 07/10/2021 8.4 (H) Component Latest Ref Rng & Units 04/02/2021 07/10/2021 Protein, Total 6.3 - 8.0 g/dL 7.1 7.6 Albumin 3.9 - 4.9 g/dL 4.4 4.4 Calcium 8.5 - 10.2 mg/dL 9.5 10.1 Bilirubin, Total 0.2 - 1.3 mg/dL 0.6 0.6 Alkaline Phosphatase 38 - 113 U/L 93 88 AST 14 - 40 U/L 24 31 Glucose 74 - 99 mg/dL 197 (H) 193 (H) BUN 9 - 24 mg/dL 25 (H) 32 (H) Creatinine 0.73 - 1.22 mg/dL 1.39 (H) 1.47 (H) Sodium 136 - 144 mmol/L 137 144 Potassium 3.7 - 5.1 mmol/L 4.5 5.0 Chloride 97 - 105 mmol/L 98 103 CO2 22 - 30 mmol/L 29 30 Anion Gap 9 - 18 mmol/L 10 11 ALT 10 - 54 U/L 27 34 eGFR- 59 eGFR-All Other Races . 49 eGFR >=60 mL/min/1.73m 47 (L) Component Latest Ref Rng & Units 04/02/2021 Cholesterol, Total <200 mg/dL 138 Triglyceride <150 mg/dL 172 (H) HDL Cholesterol >39 mg/dL 34 (L) LDL Cholesterol <100 mg/dL 70 Non HDL Cholesterol <130 mg/dL 104 Fasting Time hrs 12 VLDL Cholesterol <30 mg/dL 34 (H) TC:HDL Ratio <5.10 4.06 LDL:HDL Ratio <2.54 2.06 Component Latest Ref Rng & Units 04/02/2021 07/10/2021 Creatinine, Ur Random (UCRR) 20.0 - 300.0 mg/dL 85.3 87.0 Albumin, Urine Random mg/L 140.6 108.7 Albumin/Creat Ratio <30 mg/g 165 (H) 125 (H) Component Latest Ref Rng & Units 04/02/2021 Free T4 0.9 - 1.7 ng/dL 1.3 TSH 0.270 - 4.200 uU/mL 2.380 Impression and Recommendations: (E11.22, N18.3, Z79.4) Type 2 diabetes mell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, with long-term current use of insulin (HCC) Comment: Goal for him given age/comorbidities is 7-8%. A1c not at goal, although POC readings seem to have improved. Discussed at length importance of taking insulin prior to the meal. Plan: Continue insulin doses 38 with breakfast, 28 with lunch, and 34 with dinner. Increase Farxigato 10 mg daily. Consider GLP-1 agonist. (I10) Essential hypertension Comment: Fair control. Managed by PCP/cardiology. Plan: Continue Losartan 50 mg daily. Continue to monitor BP at home. Goal <130/80. (E78.5) Dyslipidemia Comment: LDL at goal. Managed by cardiology. Plan: Continue statin. (E03.9) Hypothyroidism (acquired) Comment: Clinically and biochemically euthyroid. Plan: Continue LT-4 25 mcg daily. I instructed the patient to monitor his blood sugars 3 times per day. If blood sugars are persistently high or low, he will call me. Follow up with me in 3 months Some elements copied from my note (04/10/2021) which have been updated where appropriate, and all reflect current medical decision making from date of this visit. 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 09/28/19 15 11/28/2016 Lens replaced by other means - Both Eyes 015 11/28/2016 Type 2 diabetes mellitus, uncontrolled 0 05/28/2016 documented as of this encounter (statuses as of 07/17/2021) [facility] of Past illness Narrative* Problem Noted Date Resolved Date 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 09/28/19 15 11/28/2016 Lens replaced by other means - Both Eyes 015 11/28/2016 Type 2 diabetes mellitus, uncontrolled 0 05/28/2016 documented as of this encounter (statuses as of 08/06/2021) [facility] of Past illness Narrative* Problem Noted Date Resolved Date 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 09/28/19 15 11/28/2016 Lens replaced by other means - Both Eyes 015 11/28/2016 Type 2 diabetes mellitus, uncontrolled 0 05/28/2016 documented as of this encounter (statuses as of 11/09/2021) [facility] of Past illness Narrative* Problem Noted Date Resolved Date 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 09/28/19 15 11/28/2016 Lens replaced by other means - Both Eyes 015 11/28/2016 Type 2 diabetes mellitus, uncontrolled 0 05/28/2016 documented as of this encounter (statuses as of 01/11/2022) [address]07-2015 History of Past illness Narrative* Problem Noted Date Resolved Date 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 09/28/19 15 11/28/2016 Lens replaced by other means - Both Eyes 015 11/28/2016 Type 2 diabetes mellitus, uncontrolled 0 05/28/2016 documented as of this encounter (statuses as of 01/13/2022) [facility]07-07-2015 History of Past illness Narrative* Problem Noted Date Resolved Date 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 09/28/19 15 11/28/2016 Lens replaced by other means - Both Eyes 015 11/28/2016 Type 2 diabetes mellitus, uncontrolled 0 05/28/2016 documented as of this encounter (statuses as of 01/25/2022) [facility]-07-2015 History of Past illness Narrative* Problem Noted Date Resolved Date 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 09/28/19 15 11/28/2016 Lens replaced by other means - Both Eyes 015 11/28/2016 Type 2 diabetes mellitus, uncontrolled 0 05/28/2016 documented as of this encounter (statuses as of 02/08/2022) [facility]-07-2015 History of Past illness Narrative* Problem Noted Date Resolved Date 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 09/28/19 15 11/28/2016 Lens replaced by other means - Both Eyes 015 11/28/2016 Type 2 diabetes mellitus, uncontrolled 0 05/28/2016 documented as of this encounter (statuses as of 02/25/2022) [address]07-2015 History of Past illness Narrative* Problem Noted Date Resolved Date 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 09/28/19 15 11/28/2016 Lens replaced by other means - Both Eyes 015 11/28/2016 Type 2 diabetes mellitus, uncontrolled 0 05/28/2016 documented as of this encounter (statuses as of 03/24/2022) [address]07-2015 History of Past illness Narrative* Problem Noted Date Resolved Date 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 09/28/19 15 11/28/2016 Lens replaced by other means - Both Eyes 015 11/28/2016 Type 2 diabetes mellitus, uncontrolled 0 05/28/2016 documented as of this encounter (statuses as of 04/10/2022) [address]07-2015 History of Past illness Narrative* Problem Noted Date Resolved Date 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 09/28/19 15 11/28/2016 Lens replaced by other means - Both Eyes 015 11/28/2016 Type 2 diabetes mellitus, uncontrolled 0 05/28/2016 documented as of this encounter (statuses as of 04/11/2022) [address]07-2015 History of Past illness Narrative* Problem Noted Date Resolved Date 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 09/28/19 15 11/28/2016 Lens replaced by other means - Both Eyes 015 11/28/2016 Type 2 diabetes mellitus, uncontrolled 0 05/28/2016 documented as of this encounter (statuses as of 05/09/2022) [address]07-2015 History of Past illness Narrative* Problem Noted Date Resolved Date 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 09/28/19 15 11/28/2016 Lens replaced by other means - Both Eyes 015 11/28/2016 Type 2 diabetes mellitus, uncontrolled 0 05/28/2016 documented as of this encounter (statuses as of 05/10/2022) [facility] History of Past illness Narrative* Problem Noted Date Resolved Date 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 09/28/19 15 11/28/2016 Lens replaced by other means - Both Eyes 015 11/28/2016 Type 2 diabetes mellitus, uncontrolled 0 05/28/2016 documented as of this encounter (statuses as of 05/11/2022) [facility] History of Past illness Narrative* Problem Noted Date Resolved Date 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 09/28/19 15 11/28/2016 Lens replaced by other means - Both Eyes 015 11/28/2016 Type 2 diabetes mellitus, uncontrolled 0 05/28/2016 documented as of this encounter (statuses as of 05/13/2022) [address]07-2015 History of Past illness Narrative* Problem Noted Date Resolved Date 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 09/28/19 15 11/28/2016 Lens replaced by other means - Both Eyes 015 11/28/2016 Type 2 diabetes mellitus, uncontrolled 0 05/28/2016 documented as of this encounter (statuses as of 05/17/2022) [facility] History of Past illness Narrative* Problem Noted Date Resolved Date 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 09/28/19 15 11/28/2016 Lens replaced by other means - Both Eyes 015 11/28/2016 Type 2 diabetes mellitus, uncontrolled 0 05/28/2016 documented as of this encounter (statuses as of 06/04/2022) [facility] History of Past illness Narrative* Problem Noted Date Resolved Date 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 09/28/19 15 11/28/2016 Lens replaced by other means - Both Eyes 015 11/28/2016 Type 2 diabetes mellitus, uncontrolled 0 05/28/2016 documented as of this encounter (statuses as of 06/07/2022) [facility] History of Past illness Narrative* Problem Noted Date Resolved Date 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 09/28/19 15 11/28/2016 Lens replaced by other means - Both Eyes 015 11/28/2016 Type 2 diabetes mellitus, uncontrolled 0 05/28/2016 documented as of this encounter (statuses as of 06/25/2022) [facility] History of Past illness Narrative* Problem Noted Date Resolved Date 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 09/28/19 15 11/28/2016 Lens replaced by other means - Both Eyes 015 11/28/2016 Type 2 diabetes mellitus, uncontrolled 0 05/28/2016 documented as of this encounter (statuses as of 07/10/2022) [address]07-2015 History of Past illness Narrative* Problem Noted Date Resolved Date 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 09/28/19 15 11/28/2016 Lens replaced by other means - Both Eyes 015 11/28/2016 Type 2 diabetes mellitus, uncontrolled 0 05/28/2016 documented as of this encounter (statuses as of 08/20/2022) [address]07-2015 History of Past illness Narrative* Problem Noted Date Diagnosed Date Resolved Date 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 09/27/2014 11/28/2016 Lens replaced by other means - Both Eyes 09/27/2014 11/28/2016 Type 2 diabetes mellitus, uncontrolled 11/07/2009 05/28/2016 documented as of this encounter (statuses as of 11/07/2022) [address]07-2015 History of Past illness Narrative* Problem Noted Date Diagnosed Date Resolved Date 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 09/27/2014 11/28/2016 Lens replaced by other means - Both Eyes 09/27/2014 11/28/2016 Type 2 diabetes mellitus, uncontrolled 11/07/2009 05/28/2016 documented as of this encounter (statuses as of 11/13/2022) [address]07-2015 History of Past illness Narrative* Problem Noted Date Diagnosed Date Resolved Date 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 09/27/2014 11/28/2016 Lens replaced by other means - Both Eyes 09/27/2014 11/28/2016 Type 2 diabetes mellitus, uncontrolled 11/07/2009 05/28/2016 documented as of this encounter (statuses as of 12/03/2022) [facility] History of Past illness Narrative* Problem Noted Date Diagnosed Date Resolved Date 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 09/27/2014 11/28/2016 Lens replaced by other means - Both Eyes 09/27/2014 11/28/2016 Type 2 diabetes mellitus, uncontrolled 11/07/2009 05/28/2016 documented as of this encounter (statuses as of 12/10/2022) [facility] History of Past illness Narrative* Problem Noted Date Diagnosed Date Resolved Date 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 09/27/2014 11/28/2016 Lens replaced by other means - Both Eyes 09/27/2014 11/28/2016 Type 2 diabetes mellitus, uncontrolled 11/07/2009 05/28/2016 documented as of this encounter (statuses as of 01/03/2023) [address]07-2015 History of Past illness Narrative* Problem Noted Date Diagnosed Date Resolved Date 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 09/27/2014 11/28/2016 Lens replaced by other means - Both Eyes 09/27/2014 11/28/2016 Type 2 diabetes mellitus, uncontrolled 11/07/2009 05/28/2016 documented as of this encounter (statuses as of 05/02/2023) [address]07-2015 History of Past illness Narrative* Problem Noted Date Diagnosed Date Resolved Date 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 09/27/2014 11/28/2016 Lens replaced by other means - Both Eyes 09/27/2014 11/28/2016 Type 2 diabetes mellitus, uncontrolled 11/07/2009 05/28/2016 documented as of this encounter (statuses as of 05/12/2023) [address]07-2015 History of Past illness Narrative* Problem Noted Date Diagnosed Date Resolved Date 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 09/27/2014 11/28/2016 Lens replaced by other means - Both Eyes 09/27/2014 11/28/2016 Type 2 diabetes mellitus, uncontrolled 11/07/2009 05/28/2016 documented as of this encounter (statuses as of 05/16/2023) [address]07-2015 History of Past illness Narrative* Problem Noted Date Diagnosed Date Resolved Date 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 09/27/2014 11/28/2016 Lens replaced by other means - Both Eyes 09/27/2014 11/28/2016 Type 2 diabetes mellitus, uncontrolled 11/07/2009 05/28/2016 documented as of this encounter (statuses as of 05/31/2023) [address]07-2015 History of Past illness Narrative* Problem Noted Date Diagnosed Date Resolved Date 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 09/27/2014 11/28/2016 Lens replaced by other means - Both Eyes 09/27/2014 11/28/2016 Type 2 diabetes mellitus, uncontrolled 11/07/2009 05/28/2016 documented as of this encounter (statuses as of 06/04/2023) [address]07-2015 History of Past illness Narrative* Problem Noted Date Diagnosed Date Resolved Date 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 09/27/2014 11/28/2016 Lens replaced by other means - Both Eyes 09/27/2014 11/28/2016 Type 2 diabetes mellitus, uncontrolled 11/07/2009 05/28/2016 documented as of this encounter (statuses as of 06/27/2023) [address]07-2015 History of Past illness Narrative* Problem Noted Date Diagnosed Date Resolved Date 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 09/27/2014 11/28/2016 Lens replaced by other means - Both Eyes 09/27/2014 11/28/2016 Type 2 diabetes mellitus, uncontrolled 11/07/2009 05/28/2016 documented as of this encounter (statuses as of 07/08/2023) [address]07-2015 History of Past illness Narrative* Problem Noted Date Diagnosed Date Resolved Date 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 09/27/2014 11/28/2016 Lens replaced by other means - Both Eyes 09/27/2014 11/28/2016 Type 2 diabetes mellitus, uncontrolled 11/07/2009 05/28/2016 documented as of this encounter (statuses as of 07/09/2023) [address]07-2015 History of Past illness Narrative* Problem Noted Date Diagnosed Date Resolved Date 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 09/27/2014 11/28/2016 Lens replaced by other means - Both Eyes 09/27/2014 11/28/2016 Type 2 diabetes mellitus, uncontrolled 11/07/2009 05/28/2016 documented as of this encounter (statuses as of 07/11/2023) [facility] complaint+Reason for visit Narrative* Chief Complaint SSS Weakness,Covid + Reason for Visit Afib COVID-19 Diabetes Elevated troponin Paroxysmal atrial fibrillation S/P placement of cardiac pacemaker Weakness HTN (hypertension) [facility] Work Phone: Chief complaint+Reason for visit Narrative* Chief Complaint SSS Weakness,Covid + ams Reason for Visit Afib COVID-19 Diabetes Elevated troponin Paroxysmal atrial fibrillation S/P placement of cardiac pacemaker Weakness HTN (hypertension) Acute alteration in mental status [facility] Work Phone: Chief complaint+Reason for visit Narrative* Chief Complaint SSS Weakness,Covid + ams Reason for Visit Afib COVID-19 Diabetes Elevated troponin Paroxysmal atrial fibrillation S/P placement of cardiac pacemaker Weakness HTN (hypertension) Acute alteration in mental status Altered mental status Depressed Elevated troponin [facility] Work Phone: Consult note Author Magdaleno Vazquez [facility] March 25, 2022 2:18pm Note Date/Time March 25, 2022 2: 19pm [facility] [address] [place] [address] Neurology Consult Note Signed Patient: Jamel Bonds MR#: [id number] : 1935 Acct:[id number] Age/Sex: 86 / M Adm Date: 2 Loc: Room: [address] [place] [address] Type: ADM IN Attending Dr: Aline Pierre MD Copies to: DO Aline Norris MD Steven Benedict, MD~ HPI Consult Date: 03/25/22 High Worker: Magdaleno Vazquez MD Reason for consult: Confusion/stroke Consult Narrative HPI: The patient is an 86-year-old male who I was asked to see in neurological consultation by the hospitalist for confusion. The patient was diagnosed with COVID approximately 2 weeks ago. The patient was then admitted to the hospital for generalized weakness. The patient was subsequently discharged home and return to the emergency room with increased confusion. The patient is accompanied by his family who states that he did have some language disturbance during this time. The patient's family states that he has improved although is not back to his previous baseline. The patient denies any unilateral numbness, unilateral weakness, or vision changes. The patient did have a noncontrast CT scan of the brain which did not reveal any evidence of acute infarct or hemorrhage. The patient denies any history of confusion in the past. The patient is states that he did have some mild short-term memory difficultiesin the past. In addition the patient's family states that they noticed the patient having significantly increased depression after the loss of a friend several months ago which has worsened some of the patient's cognition predating most recent medical conditions. Review of Systems Review of Systems Review of systems: As mentioned above. No history of abnormal bleeding, skin rash, shortness of breath, or chest pain PMFSH Vaccinated for COVID-19?: Unknown Medical History (Updated 03/23/22 @ 12:21 by Suni Stevens DO, RES) Diabetes History of pacemaker HTN (hypertension) Non-Hodgkin lymphoma Port-A-Cath in place Surgical History (Updated 03/22/22 @ 18:33 by Katja Hernandez, RN) History of cardiac catheterization Family History (Updated 03/20/22 @ 11:45 by Karla Chong RN) Mother Diabetes Mother Heart attack Grandparent Diabetes Grandparent Cancer Social History Smoking Status: Unknown if ever smoked Substance Use Type: None Substance Abuse Comment: unable to determine Meds Medications and Allergies Allergies Penicillins Adverse Reaction (Verified 03/22/22 18:26) Difficulty Breathing Home Medications insulin aspar prot-insulin aspart 100 unit/mL (70-30) subcutaneous pen (Novolog Mix 70-30FlexPen U-100) 38 units subcut DAILY.AC.BKFAST 08/29/17 [History Confirmed 03/22/22] atorvastatin 40 mg tablet 40 mg PO DAILY 08/11/21 [History Confirmed 03/22/22] dapagliflozin 10 mg tablet (Farxiga) 10 mg PO DAILY.WITH.BKFAST 08/11/21 [History Confirmed 03/22/22] digoxin 125 mcg (0.125 mg) tablet 125 mcg PO DAILY 08/11/21 [History Confirmed 03/22/22] metoprolol succinate 25 mg tablet,extended release 24 hr 25 mg PO DAILY 08/11/21[History Confirmed 03/22/22] omeprazole 20 mg capsule,delayed release 20 mg PO DAILY 08/11/21 [History Confirmed 03/22/22] levothyroxine 25 mcg tablet 25 mcg PO DAILY 03/20/22 [History Confirmed 03/22/22] tamsulosin 0.4 mg capsule 0.4 mg PO DAILY 03/20/22 [History Confirmed 03/22/22] acetaminophen 500 mg tablet 1,000 mg PO Q6H PRN Pain 03/21/22 [History Confirmed 03/22/22] calcium carbonate 500 mg-vitamin D3 15 mcg (600 unit) tablet 1 tab PO BID 03/21/22 [History Confirmed 03/22/22] fluticasone propionate 50 mcg/actuation nasal spray,suspension 2 spray intranasal DAILY 03/21/22 [History Confirmed 03/22/22] insulin aspar prot-insulin aspart 100 unit/mL (70-30) subcutaneous pen (Novolog Mix 70-30FlexPen U-100) 28 unit subcut DAILY.AC.LUNCH 03/21/22 [History Confirmed 03/22/22] insulin aspar prot-insulin aspart 100 unit/mL (70-30) subcutaneous pen (Novolog Mix 70-30FlexPen U-100) 34 unit subcut DAILY.AC SUPPER 03/21/22 [History Confirmed 03/22/22] loratadine 10 mg tablet (Claritin) 10 mg PO DAILY PRN Allergy Symptoms 03/21/22 [History Confirmed 03/22/22] magnesium oxide 400 mg (241.3 mg magnesium) tablet 400 mg PO QHS 03/21/22 [History Confirmed 03/22/22] melatonin 10 mg tablet 10 mg PO HS 03/21/22 [History Confirmed 03/22/22] multivitamin 2 tab PO DAILY 03/21/22 [History Confirmed 03/22/22] apixaban 5 mg tablet (Eliquis) 5 mg PO BID #60 tabs 03/22/22 [Rx Confirmed 03/22/22] furosemide 40 mg tablet (Lasix) 40 mg PO DAILY PRN Lower extremity swelling, abnormal weight gain,SOB 30 days #30 tabs 03/22/22 [Rx Confirmed 03/22/22] losartan 50 mg tablet 50 mg PO BID 30 days #30 tabs 03/22/22 [Rx Confirmed 03/22/22] spironolactone 25 mg tablet 25 mg PO DAILY 30 days #30 tabs 03/22/22 [Rx Confirmed 03/22/22] Exam Physical Exam Vital Signs: Temp Pulse Resp BP Pulse Ox O2 Del Method O2 Flow Rate 98.7 F 61 20 133/67 94 L Room Air 2 03/25/22 08:00 03/25/22 12:00 03/25/22 12:00 03/25/22 12:00 03/25/22 12:00 03/25/22 12:00 03/23/22 08:00 Neuro Other: Neurological exam: General: The patient is awake alert and oriented to person and place but disoriented to time. Language is intact. Recall and fund of knowledge are impaired Neurovascular exam: No carotid bruits. Regular rate and rhythm Cranial nerves: Pupils equal round reactive light and accommodation, fundoscopicexam is normal, extraocular movements intact, visual mackenzie are full to confrontation, sensations intact in the face, hearing is intact to finger rub, palate elevates bilaterally, tongue protrudes midline, shoulder shrug is symmetric. Motor: Strength testing is 5 out of 5 in all 4 extremities, deep tendon reflexesare 2+ and symmetric throughout, plantar reflexes flexor, tone is normal throughout. Sensory: Pinprick, light touch, temperature, proprioception are intact in all 4 extremities Cerebellar/gait: No ataxia noted on finger to nose. Results Laboratory Findings 03/23/22 08:04 03/23/22 08:04 Diagnostic Findings Imaging/Impressions: ITS Impressions Head CT 03/22/22 18:26 IMPRESSION: AGE-RELATED CHANGES. NO DEFINITE ACUTE INTRACRANIAL ABNORMALITY. FOLLOW-UP IS RECOMMENDED, SYMPTOMS WARRANT. Comment: Findings were discussed with Dr. Pittman at 1846 hours Impression dictated by: Tiffani Smith M.D.03/22/2022 6:48 PM Dictation Location: [place] [address] Therapy Recommendations Therapy Recommendations: OT Recommendations OT Self-care DME Recommended Long Handled Sponge,Grab Bar,Shower Seat,Toilet Rail OT Mobility DME Recommended Walker, Wheeled OT Recommended Discharge Home with Home Health Location OT Recommended Services at Physical Therapy,Occupational Therapy Discharge PT Recommendations PT Recommended Discharge Home with Home Health,Home with Outpatient Location PT Recommended Services at Physical Therapy Discharge Assessment/Plan (1) Altered mental status: Assessment/Problem Details: The patient is an 86-year-old male who I was asked see in neurological consultation for confusion which likely is secondary to a multifactorial metabolic encephalopathy. The patient has had recent COVID infection and may have some cognitive impairment related to this viral syndrome. The patient likely has some component of baseline cognitive impairment exacerbated by recenthospitalization. The patient may have a component of sleep-wake cycle disturbance contributing to his symptoms. In addition the patient has what sounds like major depression which may be causing some baseline cognitive impairment. I cannot completely exclude an acute intracranial process given thepatient's increased risk for stroke due to age, risk factors, and recent viral infection with COVID. -I will obtain an MRI scan of the brain to assess for underlying cerebral ischemia or other intracranial process which may be contributing to his symptoms. -I will obtain an EEG to assess for underlying epileptiform activity -I will continue to follow the patient clinically with medical management of underlying medical conditions -I counseled the patient and his family on the possible diagnosis, prognosis, evaluation, treatment options -I will make further recommendations based upon patient's clinical course and the above results. Code(s): R41.82 - Altered mental status, unspecified Status: Acute Documented By: Magdaleno Vazquez MD 03/25/221411 Signed By: <Electronically signed by MD Magdaleno Vazquez> 03/25/22 1418 [facility] Work Phone: Discharge summary Author Kevin Phillips [facility] March 22, 2022 2:17pm Note Date/Time March 22, 2022 2:17pm [facility] [address] [place] [address] Discharge Summary Signed Patient: Jamel Bonds MR#: [id number] : 1935 Acct:[id number] Age/Sex: 86 / M Adm Date: 2 Loc: Room: [address] [place] [address]: Kevin Phillips MD Copies to: MD Yariel Kaufman,DO~ Providers Date of Discharge: 03/22/22 Discharging Provider: Kevin Phillips Primary Care Provider: Yariel Villanueva Consults: 03/20/22 12:29 Consult to Occupational Therapy Routine Consult to Physical Therapy Routine 03/20/22 14:23 Consult to Cardiology Routine Discharge Diagnosis Final Diagnosis Final Discharge Diagnosis: Resolving COVID-19 pneumonia Non-STEMI type II in the setting of the above Mild CAD, coronary angiogram during this admission HFrEF, ejection fraction 30% Chronic medical comorbidities include Non-Hodgkin's lymphoma CKD stage III Hypertension Diabetes mellitus type 2 Paroxysmal atrial fibrillation on Xarelto Pacemaker in place Summary Hospital Course Hospital course: Patient is an 86-year-old male, with non-Hodgkin's lymphoma, and other medical comorbidities noted above. He presented to the emergency department on , complaining of generalized weakness. A COVID test taken after he had developed respiratory symptoms has been positive about 5 days prior to current presentation. ED evaluation showed mild patchy bilateral opacities consistent with COVID pneumonia. There was evidence of mild elevation in cardiac troponins. Patient was admitted to the hospital. He received supportive care for COVID-19 infection, and there were no hospital complications in this regard. He remainedstable on room air. He was evaluated by cardiology with respect to his abnormal cardiac troponins. TTE showed ejection fraction of 50%.Patient underwent coronary angiogram, which showed evidence of decreased ejection fraction of 30%. There was mild to moderate coronary disease. No intervention was performed. Medical therapy was advised. Medications were adjusted as noted below. His anticoagulant was changed from Xarelto to Eliquis on account of borderline renal function. Patient was discharged home in stable condition. Consideration will be given toupgrading the dual-chamber pacemaker to an ICD. Time Spent with Patient Time spent providing/coordinating discharge services (# min): 35 Surgeries and Procedures Operation Date: 03/21/22 14:00 Actual Procedures p CL LHC & COR Angio - Eugene Burger MD p CL FFR/IFR Initial Vessel - Eugene Burger MD Diagnostic Studies Completed and Pending Studies Labs on day of discharge: 03/22/22 12:49: POC Glucose 72, POC Glucose Comment Glu2: cleaned meter 03/22/22 06:36: POC Glucose 222 03/22/22 04:47: PHA Creatinine Clear 28.73, Sodium 132 L, Potassium 4.0, Chloride 95, Carbon Dioxide 26.0, Anion Gap 15.0, BUN 35 H, Creatinine 1.88 H, Est GFR ( Amer) 41, Est GFR (Non-Af Amer) 34, Glucose 261 H D, Calcium 8.1 L 03/22/22 04:47: Corrected WBC 7.4, Uncorrected WBC Count 7.4, RBC 4.42, Hgb 13.4, Hct 40.0, MCV 90.7, MCH 30.3, MCHC 33.5, RDW 15.1 H, Plt Count 232, MPV 7.9, Neut % (Auto) 69.4, Lymph % (Auto) 14.6, Tw[place]gs % (Auto) 14.9, Eos % (Auto) 0.9, Baso % (Auto) 0.2, Nucleat RBC Rel Count 0.2, Neut # (Auto) 5.1, Lymph # (Auto) 1.1, Tw[place]gs # (Auto) 1.1 H, Eos # (Auto) 0.1, Baso # (Auto) 0.0 03/21/22 22:02: POC Glucose 230 03/21/22 20:15: POC Glucose 167 03/21/22 17:11: POC Glucose 164, POC Glucose Comment Glu2: cleaned meter 03/21/22 16:40: POC Glucose 110, POC Glucose Comment Glu2: cleaned meter 03/21/22 15:55: POC Glucose 83, POC Glucose Comment Glu2: cleaned meter Exam Physical Exam Vital Signs: Temp Pulse Resp BP Pulse Ox O2 Del Method O2 Flow Rate 98.4 F 60 18 153/76 H 94 L Room Air 3 03/22/22 08:44 03/22/22 08:44 03/22/22 08:44 03/22/22 08:44 03/22/22 08:44 03/22/22 08:44 03/21/22 15:50 Discharge Plan Discharge Plan Patient Disposition: Home Activity: No Activity Restriction Diet: Diabetic, Low-Sodium and Low-Cholesterol Additional Instructions: Continue Xarelto at the current dose until you finish the supply that you have, after which fill and start the Eliquis blood thinner. Do not take both of them at the same time. No lifting greater than equal to 10 pounds for 5 days with the right arm. DISCHARGE INSTRUCTIONS FOR CARDIAC MICROBIAL SPECIALIST PHONE NUMBER OF YOUR PHYSICIAN: [phone] PROCEDURE: Heart Cath The following instructions have been prepared to help you care for yourself, or be cared for upon your return home. 1. You were given conscious sedation. Do not operate a vehicle, power tools, make important decisions, or drink alcohol for 24 hours. You might be drowsy orlight headed. Return to the Emergency Room if you have trouble breathing, walking or nausea and vomiting. 2. FOR BLEEDING: Apply continuous pressure to the site and call 911. 3. Operative Site Care: Keep the dressing clean and dry. You may change the dressing only if soiled or wet. You may remove the dressing the following morning. You may wash over the puncture site in the shower. If the puncture site is at the wrist no soaking for 3 days. Some bruising or slight swelling may be present. -Signs of infection are redness, warmth, swelling, getting more sore, colored drainage, fever or chills. -Should the arm or leg become cold, numb, blue or white, call the mobile crane operator immediately. 4. ACTIVITY: You are advised to go directly home from the hospital. Restrict your activities for the rest of the day. Resume light or normal activities tomorrow. Do not engage in any activity that will stress the puncture site. Avoid heavy lifting (over 15 lbs.), straining or bending at the catheter site for 48 hours after discharge. If the puncture site is at the wrist do not manipulate wrist for 24 hours and no lifting more than 3 lbs for 3 days. 5. DIET:You may eat your regular diet when you desire. 6. MEDICATIONS: Resume your daily prescription schedule. Prescriptions may be sent with you if needed. Use as directed. When taking pain medications, you may experience dizziness or drowsiness. Do not drink alcohol or drive when taking pain medications. 7. If you should experience episodes of angina e.g. chest discomfort, heaviness, tightness, pressure, burning, with or without radiation to the neck, jaws, arms, or back- Use 1 Nitrostat under your tongue every 5-10 minutes, and up to 3 tablets. If no relief- Call 911 and go to the nearest Emergency Room. -Notify the office for recurrent angina, chest pain or other concerns. You may NOT drive yourself home! Follow the medication instructions provided on your discharge. If the dosages and instructions on this sheet differ from the dosage and instructions on the bottle, follow the instructions on the bottle. [facility] is not responsible for incorrect prescription information provided by thepatient during their visit. Do not stop your medications without consulting your health care provider. Please take the list with you to your next doctor's appointment. You have tested positive for Covid-19, please see attached instructions and follow up with the Health Department for further instructions. Take Lasix 40 mg daily to take 1/2-hour after spironolactone dose as needed lower extremity swelling, abnormal weight gain, abnormal shortness of breath. Instructions: Apixaban, Furosemide, Spironolactone, [facility] COVID-19 Discharge Instructions Prescriptions: New spironolactone 25 mg Tablet 25 mg PO DAILY 30 Days Qty: 30 11RF Eliquis 5 mg tablet 5 mg PO BID Qty: 60 11RF furosemide [Lasix] 40 mg Tablet 40 mg PO DAILY PRN (Reason: Lower extremity swelling, abnormal weight gain,SOB) 30 Days Qty: 30 0RF Rx Instructions: 30 mins before spironolactone Continued insulin asp prt-insulin aspart [Novolog Mix 70-30FlexPen U-100] 100 unit/mL (70- 30) insulin pen 38 units subcut DAILY.AC.BKFAST Patient Comments: INJECT 27 UNITS SUB-Q TWICE A DAY Rx Instructions: 38 units before breakfast 28 units at lunchtime 34 units at dinner atorvastatin 40 mg tablet 40 mg PO DAILY Patient Comments: TAKE 1 TABLET BY MOUTH AT BEDTIME omeprazole 20 mg Capsule,Delayed Release(Dr/Ec) 20 mg PO DAILY digoxin 125 mcg (0.125 mg) tablet 125 mcg PO DAILY Patient Comments: TAKE 1 TABLET BY MOUTH DAILY metoprolol succinate 25 mg tablet extended release 24 hr 25 mg PO DAILY Patient Comments: TAKE 1 TABLET BY MOUTH EVERY DAY Farxiga 10 mg tablet 10 mg PO DAILY.WITH.BKFAST Patient Comments: TAKE 1 TABLET BY MOUTH DAILY WITH BREAKFAST levothyroxine 25 mcg tablet 25 mcg PO DAILY Patient Comments: TAKE 1 TABLET BY MOUTH IN THE MORNING tamsulosin 0.4 mg capsule 0.4 mg PO DAILY multivitamin Tablet 2 tab PO DAILY acetaminophen 500 mg Tablet 1,000 mg PO Q6H PRN (Reason: Pain) magnesium oxide 400 mg (241.3 mg magnesium) Tablet 400 mg PO QHS fluticasone propionate 50 mcg/actuation [place],Suspension 2 spray INTRANASAL DAILY Rx Instructions: administer into each nostril loratadine [Claritin] 10 mg Tablet 10 mg PO DAILY PRN (Reason: Allergy Symptoms) insulin asp prt-insulin aspart [Novolog Mix 70-30FlexPen U-100] 100 unit/mL (70- 30) insulin pen 34 unit SUBCUT DAILY.AC SUPPER Rx Instructions: 38 units before breakfast 28 units at lunchtime 34 units at dinner insulin asp prt-insulin aspart [Novolog Mix 70-30FlexPen U-100] 100 unit/mL (70- 30) insulin pen 28 unit SUBCUT DAILY.AC.LUNCH Rx Instructions: 38 units before breakfast 28 units at lunchtime 34 units at dinner calcium carbonate-vitamin D3 500 mg-15 mcg (600 unit) Tablet 1 tab PO BID melatonin 10 mg Tablet 10 mg PO HS Changed losartan 50 mg tablet 50 mg PO BID 30 Days Qty: 30 11RF Patient Comments: TAKE 1 TABLET BY MOUTH DAILY Discontinued cholecalciferol (vitamin D3) [Vitamin D3] 2,000 unit Tablet 2,000 unit PO DAILY Xarelto 20 mg tablet 20 mg PO DAILY Qty: 30 0RF Rx Instructions: administer with evening meal aspirin 81 mg Tablet,Delayed Release (Dr/Ec) 81 mg PO DAILY Other Ambulatory Orders: Basic Metabolic Panel (Routine) Timeframe: 20220325 Location: Determined by Patient Ordered By: Eugene Burger Follow Up: Sean Franklin MD [Active Staff] - (Call office on Friday to schedulefollow-up with Cardiology in 3 weeks. ) Yariel Villanueva DO [Primary Care Provider] - 03/29/22 9:30 am (Follow-up with your Primary Care Provider, call office to reschedule if needed. Your appointment will be with JOSH Barbour. ) Documented By: Kevin Phillips MD 03/22/22 1409 Signed By: <Electronically signed by Kevin Phillips MD> 03/22/22 1417 [facility] Work Phone: Discharge summary Author Aline Pierre [facility] March 26, 2022 9:23am Note Date/Time March 26, 2022 9: 20am [facility] [address] [place] [address] Discharge Summary Signed Patient: Jamel Bonds MR#: [id number] : 1935 Acct:[id number] Age/Sex: 86 / M Adm Date: 2 Loc: Room: [address] [place] [address]: Aline Pierre MD Copies to: DO Aline Norris MD~ Providers Date of Discharge: 03/26/22 Discharging Provider: Aline Pierre Primary Care Provider: Yariel Villanueva Consults: 03/23/22 03:17 Consult to Occupational Therapy Routine Consult to Physical Therapy Routine 03/25/22 11:53 Consult to Neurology Routine Discharge Diagnosis (1) Altered mental status: (2) Diabetes: (3) Afib: (4) Paroxysmal atrial fibrillation: (5) S/P placement of cardiac pacemaker: Final Diagnosis Final Discharge Diagnosis: As listed above and others at that are not listed Summary Hospital Course Hospital course: Mr. Bonds is an 86-year-old gentleman who was brought in after he had a transient episode of confusion and disorientation. CAT scan of the brain is negative. The blood work is unremarkable and there are no deviation from baseline. No evidence of infection other than his recent COVID infection. MRI was ordered but unfortunately his pacemaker is not compatible with MRI thereforeI had to repeat CAT scan to exclude evolving stroke. That came back negative. Patient was seen by neurology team. Please refer to Dr. Vazquez's note for details in terms of his thought process and differential diagnosis. Once again MRI could not be ordered. EEG is ordered but not completed. Meanwhile the patient is back to normal. He is awake and alert. He is coherent. He is able to ambulate back and forth to the bathroom. Back to baseline state according to the patient himself and his . Patient will be discharged home once cleared by neurology team. Patient will beinstructed to follow-up with his PCP and neurology. Patient will continue his home medications with downward titration of his insulin to prevent hypoglycemia. Patient will be given instructions as such: Check your blood sugar 3 times a day before meals. Document these numbers on a blood glucose log and bring them with you to your follow-up appointment with your primary care doctor. Communicate with your primary care doctor or occupational medicine specialist if your blood sugar is under 100 or above 300 on 2 consecutive checks. Communicate with your primary care doctor or occupational medicine specialist if you have anyquestions about your diabetes medications. Signs of a low blood sugar include sweating, racing heart, dizziness and/or weakness. Check your blood sugar if you have any of the symptoms. Patient has multiple complex medical issues. All appear to be stable. I do nothave any clear or strong clinical justification to extend inpatient hospitalization. Patient however will require close and the frequent monitoringas well as additional work-up, investigation and therapeutic intervention that could take place from this point on post discharge. That is to prevent relapse,decompensation, rehospitalization and other medical implications. Time Spent with Patient Time spent providing/coordinating discharge services (# min): 50 Diagnostic Studies Completed and Pending Studies Pending studies at discharge: 03/26/22 05:00 EEG awake & asleep Routine 03/26/22 06:15 B12 [Vitamin B12] [CHEM] IN AM CMP [Comprehensive Metabolic Panel] [CHEM] IN AM Vitamin D 25 Hydroxy Total [CHEM] IN AM 03/26/22 09:10 Thyroid Stimulating Hormone [CHEM] Routine Labs on day of discharge: 03/26/22 08:00: Ammonia 11 03/26/22 06:50: POC Glucose 110 03/26/22 06:15: PHA Creatinine Clear 37.86, Sodium 133 L, Potassium 3.9, Chloride 99, Carbon Dioxide 24.8, Anion Gap 13.1, BUN 21, Creatinine 1.38 H, Est GFR ( Amer) 59, Est GFR (Non-Af Amer) 49, Glucose 112 H, Calcium 8.3, Total Bilirubin 0.6, AST 29, ALT 27, Alkaline Phosphatase 58, Total Protein 6.2, Albumin 2.7 L, Globulin 3.5, Albumin/Globulin Ratio 0.8, Vitamin B12 811 03/26/22 06:15: Corrected WBC 5.7, Uncorrected WBC Count 5.7, RBC 3.91, Hgb 11.9 L, Hct 34.9 L, MCV 89.3, MCH 30.4, MCHC 34.0, RDW 14.5, Plt Count 299, MPV 7.7, Neut % (Auto) 60.0, Lymph % (Auto) 20.5, [place] % (Auto) 13.4, Eos % (Auto) 5.7, Baso % (Auto) 0.4, Nucleat RBC Rel Count 0.1, Neut # (Auto) 3.4, Lymph # (Auto) 1.2, [place] # (Auto) 0.8, Eos # (Auto) 0.3, Baso # (Auto) 0.0 03/26/22 03:11: POC Glucose 98, POC Glucose Comment Glu2: cleaned meter 03/25/22 16:04: POC Glucose 110, POC Glucose Comment Glu2: cleaned meter 03/25/22 11:03: POC Glucose 111, POC Glucose Comment Glu2: cleaned meter Exam Physical Exam Vital Signs: Temp Pulse Resp BP Pulse Ox O2 Del Method O2 Flow Rate 97.2 F L 64 18 150/81 H 95 Room Air 2 03/26/22 08:00 03/26/22 08:06 03/26/22 08:00 03/26/22 08:00 03/26/22 08:00 03/26/22 08:00 03/23/22 08:00 Narrative: [pt is awake and alert. oriented to place, time and person HEENT: [place] conjunctiva and NL buccal mucosa Neck: Supple, no tenderness Endocrine: No Thyromegaly. Vascular: No JVD or carotid bruit. Lymphatic: No cervical lymphadenopathy. Chest: Fine crackles. Heart RRR, no extra sound or murmur. Abd: Soft, no tenderness, no rebound and no rigidity. Increase abd girth therefore clinically I could not exclude the possibility of intra abd mass or organomegaly. LE: No cyanosis or clubbing, no varices or edema. Neuro: A A O. Nl speech, comprehension and attention. Nl and symetrical motor and tone examination through out. Patient needs assist to stand up and ambulating. Nonfocal []] Discharge Plan Discharge Plan Patient Disposition: Home Additional Instructions: I may not have addressed or treated all of your medical illnesses or the abnormal blood work or imaging studies during this hospitalization. Please ask your primary care provider to obtain [facility] records entirely to follow up on all of the abnormal physical, laboratory, and imaging findings that I have not addressed. Check your blood sugar 3 times a day before meals. Document these numbers on a blood glucose log and bring them with you to your follow-up appointment with your primary care doctor. Communicate with your primary care doctor or occupational medicine specialist if your blood sugar is under 100 or above 300 on 2 consecutive checks. Communicate with your primary care doctor or occupational medicine specialist if you have any questions about your diabetes medications. Signs of a low blood sugar include sweating, racing heart, dizziness and/or weakness. Check your blood sugar if you have any of the symptoms. Please return back to the emergency room or seek medical attention if your symptoms worsen or return. Discharging you from [facility] does not mean that your medical care ends here and now. You may still need additional monitoring, work up, investigation, and treatment plan to be handled from this point on by out patient providers including your primary care provider and specialists. For any medication question, please contact your retail pharmacist or your primary care provider. Thank you. Prescriptions: Continued atorvastatin 40 mg tablet 40 mg PO DAILY Patient Comments: TAKE 1 TABLET BY MOUTH AT BEDTIME omeprazole 20 mg Capsule,Delayed Release(Dr/Ec) 20 mg PO DAILY digoxin 125 mcg (0.125 mg) tablet 125 mcg PO DAILY Patient Comments: TAKE 1 TABLET BY MOUTH DAILY metoprolol succinate 25 mg tablet extended release 24 hr 25 mg PO DAILY Patient Comments: TAKE 1 TABLET BY MOUTH EVERY DAY Farxiga 10 mg tablet 10 mg PO DAILY.WITH.BKFAST Patient Comments: TAKE 1 TABLET BY MOUTH DAILY WITH BREAKFAST levothyroxine 25 mcg tablet 25 mcg PO DAILY Patient Comments: TAKE 1 TABLET BY MOUTH IN THE MORNING tamsulosin 0.4 mg capsule 0.4 mg PO DAILY multivitamin Tablet 2 tab PO DAILY acetaminophen 500 mg Tablet 1,000 mg PO Q6H PRN (Reason: Pain) magnesium oxide 400 mg (241.3 mg magnesium) Tablet 400 mg PO QHS fluticasone propionate 50 mcg/actuation [place],Suspension 2 spray INTRANASAL DAILY Rx Instructions: administer into each nostril loratadine [Claritin] 10 mg Tablet 10 mg PO DAILY PRN (Reason: Allergy Symptoms) calcium carbonate-vitamin D3 500 mg-15 mcg (600 unit) Tablet 1 tab PO BID melatonin 10 mg Tablet 10 mg PO HS spironolactone 25 mg Tablet 25 mg PO DAILY 30 Days Qty: 30 11RF Eliquis 5 mg tablet 5 mg PO BID Qty: 60 11RF furosemide [Lasix] 40 mg Tablet 40 mg PO DAILY PRN (Reason: Lower extremity swelling, abnormal weight gain,SOB) 30 Days Qty: 30 0RF Rx Instructions: 30 mins before spironolactone Changed losartan 50 mg tablet 50 mg PO DAILY 30 Days Qty: 30 11RF Patient Comments: TAKE 1 TABLET BY MOUTH DAILY insulin asp prt-insulin aspart [Novolog Mix 70-30FlexPen U-100] 100 unit/mL (70- 30) insulin pen 22 unit SUBCUT DAILY.AC.LUNCH Qty: 15 0RF Rx Instructions: 38 units before breakfast 28 units at lunchtime 34 units at dinner insulin asp prt-insulin aspart [Novolog Mix 70-30FlexPen U-100] 100 unit/mL (70- 30) insulin pen 32 unit subcut DAILY.AC.BKFAST Qty: 15 0RF Patient Comments: INJECT 27 UNITS SUB-Q TWICE A DAY Rx Instructions: 38 units before breakfast 28 units at lunchtime 34 units at dinner insulin asp prt-insulin aspart [Novolog Mix 70-30FlexPen U-100] 100 unit/mL (70- 30) insulin pen 30 unit SUBCUT DAILY.AC SUPPER Qty: 15 0RF Rx Instructions: 38 units before breakfast 28 units at lunchtime 34 units at dinner Follow Up: Yariel Villanueva DO [Primary Care Provider] - Magdaleno Vazquez MD [Courtesy/Consulting Physician] - Documented By: Aline Pierre MD 03/26/22918 Signed By: <Electronically signed by Aline Pierre MD> 03/26/22922 [facility] Work Phone: Evaluation noteNo assessment information available [facility] Work Phone: Evaluation note* Diagnosis Type 2 diabetes mell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, with long-term current use of insulin (HCC)- Primary Essential hypertension Unspecified essential hypertension Dyslipidemia Other and unspecified hyperlipidemia Acquired hypothyroidism Unspecified hypothyroidism [facility] Diagnosis Lower urinary tract symptoms (LUTS) Other symptoms involving urinary system Prostate CA (HCC) Malignant neoplasm of prostate 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) Other malignant lymphomas of intrathoracic lymph nodes [facility] Diagnosis Lower urinary tract symptoms (LUTS)- Primary Other symptoms involving urinary system Prostate CA (HCC) Malignant neoplasm of prostate Diffuse large B-cell lymphoma, unspecified body region (HCC) [facility] Pro[facility] (HCC)- Primary Malignant neoplasm of prostate Lower urinary tract symptoms (LUTS) Other symptoms involving urinary system [facility] Diagnosis PSA elevation- Primary Elevated prostate specific antigen (PSA) Prostate CA (HCC) Malignant neoplasm of prostate [facility] Diagnosis Type 2 diabetes mellitus with diabetic chronic kidney disease (HCC) Type II or unspecified type diabetes mellitus with renal manifestations, not stated as uncontrolled [facility] Diagnosis Onset Date Resolution Status Afib acute COVID-19 acute Diabetes acute Elevated troponin acute Paroxysmal atrial fibrillation acute S/P placement of cardiac pacemaker acute Weakness acute HTN (hypertension) chronic [facility] Work Phone: Evaluation note* Diagnosis Onset Date Resolution Status Afib acute COVID-19 acute Diabetes acute Elevated troponin acute Paroxysmal atrial fibrillation acute S/P placement of cardiac pacemaker acute Weakness acute HTN (hypertension) chronic Acute alteration in mental status acute [facility] Work Phone: Evaluation note* Diagnosis Onset Date Resolution Status Afib acute COVID-19 acute Diabetes acute Elevated troponin acute Paroxysmal atrial fibrillation acute S/P placement of cardiac pacemaker acute Weakness acute HTN (hypertension) chronic Acute alteration in mental status acute Altered mental status acute Depressed acute Elevated troponin acute [facility] Work Phone: Evaluation note* Diagnosis Type 2 diabetes mell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, with long-term current use of insulin (HCC)- Primary Essential hypertension Unspecified essential hypertension Dyslipidemia Other and unspecified hyperlipidemia Acquired hypothyroidism Unspecified hypothyroidism [facility] Diagnosis Type 2 diabetes mellitus without complication, with long-term current use of insulin (HCC)- Primary Epiretinal membrane, bilateral Pseudophakia of both eyes Lens replaced by other means Myopia with astigmatism and presbyopia, right [facility] Diagnosis Prostate CA (HCC)- Primary Malignant neoplasm of prostate Lower urinary tract symptoms (LUTS) Other symptoms involving urinary system PSA elevation Elevated prostate specific antigen (PSA) [facility] Prostate CA (HCC)- Primary Malignant neoplasm of prostate PSA elevation Elevated prostate specific antigen (PSA) Lower urinary tract symptoms (LUTS) Other symptoms involving urinary system [facility] Diagnosis Nocturia- Primary Prostate CA (HCC) Malignant neoplasm of prostate Feeling of incomplete bladder emptying Incomplete bladder emptying [facility] Diagnosis Prostate CA (HCC)- Primary Malignant neoplasm of prostate PSA elevation Elevated prostate specific antigen (PSA) History of diffuse large B-cell lymphoma [facility] Diagnosis Prostate CA (HCC)- Primary Malignant neoplasm of prostate [facility] Diagnosis Prostate CA (HCC)- Primary Malignant neoplasm of prostate [facility] Diagnosis Type 2 diabetes mellitus with stage 3b chronic kidney disease, with long-term current use of insulin (HCC)- Primary Essential hypertension Unspecified essential hypertension Dyslipidemia Other and unspecified hyperlipidemia Acquired hypothyroidism Unspecified hypothyroidism [facility] Diagnosis Prostate CA (HCC)- Primary Malignant neoplasm of prostate [facility] Diagnosis Type 2 diabetes mellitus with stage 3b chronic kidney disease, with long-term current use of insulin (HCC) Dyslipidemia Other and unspecified hyperlipidemia Acquired hypothyroidism Unspecified hypothyroidism Prostate CA (HCC) Malignant neoplasm of prostate [facility] Diagnosis Type 2 diabetes mellitus with stage 3b chronic kidney disease, with long-term current use of insulin (HCC)- Primary Essential hypertension Unspecified essential hypertension Dyslipidemia Other and unspecified hyperlipidemia Acquired hypothyroidism Unspecified hypothyroidism [facility] Diagnosis Prostate CA (HCC)- Primary Malignant neoplasm of prostate PSA elevation Elevated prostate specific antigen (PSA) [facility] Diagnosis PSA elevation- Primary Elevated prostate specific antigen (PSA) Prostate CA (HCC) Malignant neoplasm of prostate [facility] Diagnosis PSA elevation- Primary Elevated prostate specific antigen (PSA) Prostate CA (HCC) Malignant neoplasm of prostate [facility] Diagnosis Malignant neoplasm of prostate (HCC)- Primary Malignant neoplasm of prostate [facility] Diagnosis PSA elevation Elevated prostate specific antigen (PSA) [facility]* Diagnosis Prostate CA (HCC)- Primary Malignant neoplasm of prostate PSA elevation Elevated prostate specific antigen (PSA) [facility] Diagnosis Blurry vision- Primary Other specified visual disturbances Epiretinal membrane, bilateral Type 2 diabetes mellitus without complication, with long-term current use of insulin (HCC) Pseudophakia of both eyes Lens replaced by other means [facility] Diagnosis Type 2 diabetes mellitus with stage 3b chronic kidney disease, with long-term current use of insulin (HCC)- Primary Essential hypertension Unspecified essential hypertension Dyslipidemia Other and unspecified hyperlipidemia Acquired hypothyroidism Unspecified hypothyroidism [facility] Diagnosis Type 2 diabetes mellitus with stage 3b chronic kidney disease, with long-term current use of insulin (HCC) PSA elevation Elevated prostate specific antigen (PSA) [facility]* Diagnosis Prostate CA (HCC) Malignant neoplasm of prostate PSA elevation Elevated prostate specific antigen (PSA) [facility] Diagnosis Prostate CA (HCC) Malignant neoplasm of prostate [facility] [facility] Diagnosis Lower urinary tract symptoms (LUTS) Other symptoms involving urinary system Prostate CA (HCC) Malignant neoplasm of prostate Diffuse large B-cell lymphoma, unspecified body region (HCC) [facility] Diagnosis Sick sinus syndrome (Multi)- Primary Sinoatrial node dysfunction Pacemaker Cardiac pacemaker in situ Paroxysmal atrial fibrillation (Multi) Atrial fibrillation High risk medication use Mixed hyperlipidemia Essential hypertension Unspecified essential hypertension clother in current use of anticoagulant therapy Mild coronary artery disease LV dysfunction Left heart failure BMI 26.0-26.9,adult Stage 3a chronic kidney disease (Multi) documented in this encounter [facility] Work Phone: Evaluation note* Diagnosis Prostate CA (HCC)- Primary Malignant neoplasm of prostate PSA elevation Elevated prostate specific antigen (PSA) documented in this encounter [facility] note* Diagnosis Prostate CA (HCC)- Primary Malignant neoplasm of prostate documented in this encounter [facility] note* Diagnosis PSA elevation Elevated prostate specific antigen (PSA) Acquired hypothyroidism Unspecified hypothyroidism [facility] Diagnosis Bilateral impacted cerumen- Primary Impacted cerumen [facility] Acute right hip pain- Primary Sacroiliac joint pain Disorders of sacrum Chronic bilateral low back pain without sciatica [facility] Diagnosis Type 2 diabetes mellitus with stage 3b chronic kidney disease, with long-term current use of insulin (HCC) documented [facility] Diagnosis Type 2 diabetes mellitus with stage 3b chronic kidney disease, with long-term current use of insulin (HCC) documented [facility]* Diagnosis Onset Date Resolution Status Arthritis of lumbosacral spine acute Other chronic pain acute Sacroiliitis acute Scoliosis [facility] Work Phone: Evaluation note* Diagnosis Lumbar paraspinal muscle spasm- Primary Other symptoms referable to back documented in this encounter [facility]* Diagnosis Type 2 diabetes mellitus with stage 3b chronic kidney disease, with long-term current use of insulin (HCC)- Primary Essential hypertension Unspecified essential hypertension Dyslipidemia Other and unspecified hyperlipidemia Acquired hypothyroidism Unspecified hypothyroidism [facility] Diagnosis Valgus deformity of both great toes- Primary Other specified peripheral vascular diseases (CMS/HCC) Neuropathy Mononeuritis of unspecified site Type II diabetes mellitus with neurological manifestations (CMS/HCC) Type II or unspecified type diabetes mellitus with neurological manifestations, not stated as uncontrolled Hallux rigidus of both feet [facility] Diagnosis Lumbar paraspinal muscle spasm- Primary Other symptoms referable to back [facility] Diagnosis Prostate CA (HCC) Malignant neoplasm of prostate [facility] Diagnosis Prostate CA (HCC)- Primary Malignant neoplasm of prostate Type 2 diabetes mellitus with stage 3b chronic kidney disease, 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-cell lymphoma [facility] Diagnosis Venous stasis- Primary Unspecified venous (peripheral) insufficiency Neuropathy Mononeuritis of unspecified site 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 (CMS-HCC) Nonischemic cardiomyopathy (CMS-HCC) Other primary cardiomyopathies Reactive depression [facility] Diagnosis Upper respiratory tract infection, unspecified type- Primary Diffuse large B-cell lymphoma, unspecified body region (CMS-HCC) Pulmonary emphysema, unspecified emphysema type (CMS-HCC) Secondary renal hyperparathyroidism (CMS-HCC) Overweight [facility] Diagnosis Medicare annual wellness visit, subsequent- Primary Screening for depression [facility] Diagnosis Type 2 diabetes mellitus with stage 3b chronic kidney disease, with long-term current use of insulin (HCC) Prostate CA (HCC) Malignant neoplasm of prostate History of diffuse large B-cell lymphoma [facility] Diagnosis Prostate CA (HCC)- Primary Malignant neoplasm of prostate PSA elevation Elevated prostate specific antigen (PSA) [facility] Diagnosis Prostate CA (HCC)- Primary Malignant neoplasm of prostate 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, with long-term current use of insulin (HCC) [facility] Diagnosis Right ear impacted cerumen- Primary Impacted cerumen Foreign body of left ear, initial encounter Keratosis obturans of external ear canal, left documented in this encounter [facility]* Diagnosis Epiretinal membrane, bilateral- Primary Type 2 diabetes mellitus without complication, with long-term current use of insulin (HCC) Pseudophakia of both eyes Lens replaced by other means Blurry vision Other specified visual disturbances Fuchs' corneal dystrophy of both eyes [facility] Diagnosis Type 2 diabetes mellitus with stage 3b chronic kidney disease, with long-term current use of insulin (HCC)- Primary Essential hypertension Unspecified essential hypertension Dyslipidemia Other and unspecified hyperlipidemia Acquired hypothyroidism Unspecified hypothyroidism [facility] Diagnosis Sick sinus syndrome (Multi)- Primary Sinoatrial node dysfunction Paroxysmal atrial fibrillation (Multi) Atrial fibrillation Pacemaker Cardiac pacemaker in situ Mild coronary artery disease LV dysfunction Left heart failure Mixed hyperlipidemia Essential hypertension Unspecified essential hypertension clother in current use of anticoagulant therapy Stage 3a chronic kidney disease (Multi) BMI 26.0-26.9,adult Never smoked tobacco Hyperthyroidism Thyrotoxicosis without mention of goiter or other cause, without mention of thyrotoxic crisis or storm documented in this encounter [facility] Work Phone: History and physical note Author Mikal Terry [facility] March 23, 2022 3:29am Note Date/Time March 22, 2022 9:20pm [facility] [address] [place] [address] Hospitalist H&P Signed Patient: Jamel Bonds MR#: [id number] : 1935 Acct:[id number] Age/Sex: 86 / M Adm Date: 2 Loc: Room: [address] [place] [address] Type: ADM IN Attending Dr: Mikal Terry DO Copies to: DO Mikal Norris, ~ HPI DATE OF EXAMINATION: 03/22/22 CHIEF COMPLAINT: Altered mental status HISTORY OF PRESENT ILLNESS: This patient is an 86-year-old male who presented to the emergency department earlier this evening with reports of altered mental status. Of note he was discharged yesterday 03/22 after being admitted for generalized weakness. At that time he had resolving COVID-19 pneumonia and mild elevation in his cardiac troponins. He underwent angiogram which showed a decreased ejection fraction and mild to moderate coronary artery disease but no stent was placed. Xarelto was switched to Eliquis. In the emergency department the patient was intermittently disoriented per report and complained only of some mild headache. Vital signs revealed hypertension 194/61, respiratory rate of 20, heart rate 62, temperature 97.1 ?F,95% pulse oximetry on room air. Laboratory evaluation was fairly unremarkable showing a normal CBC however slight worsening of renal function. LFTs are within normal limits. Slight elevation in troponin of 156. Family is concernedthat the patient is off . CT of the head was negative for any acute findings. He was subsequently mated to the [facility] floor for further evaluation and treatment. Physical Examination: GENERAL APPEARANCE: Alert, minimally verbal, flat affect HEENT: NCAT, MMM NECK: Neck soft w/o masses, no JVD CARDIAC: Normal S1 and S2. No S3, S4 or murmurs. LUNGS: Clear to auscultation bilaterally. no wheeze/rhonchi/rales ABDOMEN: Positive bowel sounds. Soft, nontender. No guarding or signs of an acute abdomen MUSCULOSKELETAL: No joint erythema or tenderness. EXTREMITIES: No clubbing, cyanosis or edema PSYCHIATRIC: Flat affect Assessment and plan: 1. Altered mental status No obvious driving because of this. Certainly his advanced age and atherosclerotic risk factors put him at risk for vascular dementia. He is not exhibiting any psychotic symptoms but at the moment does seem somewhat confused. PT/OT. 2. Elevated troponin Unclear significance. This is slightly higher elevation than noted previously on recent admission. We will trend with a.m. labs however suspicion for any acute coronary syndrome remains quite low. Recently had catheterization as noted above. 3. Acute kidney injury IV fluids. Monitor with a.m. labs. 4. Insulin-dependent diabetes mellitus Continue home insulin regimen along with Farxiga 5. Paroxysmal atrial fibrillation Continue home Eliquis, metoprolol, digoxin 6. Hypertension Continue home medications, metoprolol, losartan, Aldactone 7. Hypothyroidism Continue home 25 mcg daily levothyroxine. Review of Systems Review of Systems All other systems reviewed & are negative unless noted below or in HPI PMFSH Vaccinated for COVID-19?: Unknown Medical History (Updated 03/22/22 @ 21:17 by Kenny Pittman MD) Diabetes History of pacemaker HTN (hypertension) Non-Hodgkin lymphoma Port-A-Cath in place Surgical History (Updated 03/22/22 @ 18:33 by Katja Hernandez, RN) History of cardiac catheterization Family History (Updated 03/20/22 @ 11:45 by Karla Chong RN) Mother Diabetes Mother Heart attack Grandparent Diabetes Grandparent Cancer Social History Smoking Status: Never smoker Substance Use Type: None Meds Medications and Allergies Allergies Penicillins Adverse Reaction (Verified 03/22/22 18:26) Difficulty Breathing Home Medications insulin aspar prot-insulin aspart 100 unit/mL (70-30) subcutaneous pen (Novolog Mix 70-30FlexPen U-100) 38 units subcut DAILY.AC.BKFAST 08/29/17 [History Confirmed 03/22/22] atorvastatin 40 mg tablet 40 mg PO DAILY 08/11/21 [History Confirmed 03/22/22] [facility] 10 mg PO DAILY.WITH.BKFAST 08/11/21 [History Confirmed 03/22/22] digoxin 125 mcg (0.125 mg) tablet 125 mcg PO DAILY 08/11/21 [History Confirmed 03/22/22] metoprolol succinate 25 mg tablet,extended release 24 hr 25 mg PO DAILY 08/11/21[History Confirmed 03/22/22] omeprazole 20 mg capsule,delayed release 20 mg PO DAILY 08/11/21 [History Confirmed 03/22/22] levothyroxine 25 mcg tablet 25 mcg PO DAILY 03/20/22 [History Confirmed 03/22/22] tamsulosin 0.4 mg capsule 0.4 mg PO DAILY 03/20/22 [History Confirmed 03/22/22] acetaminophen 500 mg tablet 1,000 mg PO Q6H PRN Pain 03/21/22 [History Confirmed 03/22/22] calcium carbonate 500 mg-vitamin D3 15 mcg (600 unit) tablet 1 tab PO BID 03/21/22 [History Confirmed 03/22/22] fluticasone propionate 50 mcg/actuation nasal spray,suspension 2 spray intranasal DAILY 03/21/22 [History Confirmed 03/22/22] insulin aspar prot-insulin aspart 100 unit/mL (70-30) subcutaneous pen (Novolog Mix 70-30FlexPen U-100) 28 unit subcut DAILY.AC.LUNCH 03/21/22 [History Confirmed 03/22/22] insulin aspar prot-insulin aspart 100 unit/mL (70-30) subcutaneous pen (Novolog Mix 70-30FlexPen U-100) 34 unit subcut DAILY.AC SUPPER 03/21/22 [History Confirmed 03/22/22] loratadine 10 mg tablet (Claritin) 10 mg PO DAILY PRN Allergy Symptoms 03/21/22 [History Confirmed 03/22/22] magnesium oxide 400 mg (241.3 mg magnesium) tablet 400 mg PO QHS 03/21/22 [History Confirmed 03/22/22] melatonin 10 mg tablet 10 mg PO HS 03/21/22 [History Confirmed 03/22/22] multivitamin 2 tab PO DAILY 03/21/22 [History Confirmed 03/22/22] apixaban 5 mg tablet (Eliquis) 5 mg PO BID #60 tabs 03/22/22 [Rx Confirmed 03/22/22] furosemide 40 mg tablet (Lasix) 40 mg PO DAILY PRN Lower extremity swelling, abnormal weight gain,SOB 30 days #30 tabs 03/22/22 [Rx Confirmed 03/22/22] losartan 50 mg tablet 50 mg PO BID 30 days #30 tabs 03/22/22 [Rx Confirmed 03/22/22] spironolactone 25 mg tablet 25 mg PO DAILY 30 days #30 tabs 03/22/22 [Rx Confirmed 03/22/22] Exam Physical Exam Vital Signs: Temp Pulse Resp BP Pulse Ox O2 Del Method 97.1 F L 60 20 165/77 H 91 L Room Air 03/22/22 18:27 03/22/22 21:00 03/22/22 21:00 03/22/22 21:00 03/22/22 21:00 03/22/22 21:00 Results Lab Results Labs: Laboratory Last Values Corrected WBC 8.8 X10E3/uL (4.1-10.5) 03/22/22 18:25 Uncorrected WBC Count 8.8 x10E3/uL (4.1-10.5) 03/22/22 18:25 RBC 4.90 X10E6/uL (3.90-5.60) 03/22/22 18:25 Hgb 14.8 g/dL (13.0-17.0) 03/22/22 18:25 Hct 44.3 % (38.8-50.0) 03/22/22 18:25 MCV 90.5 fl (83.5-101) 03/22/22 18:25 MCH 30.1 pg (27.5-35.2) 03/22/22 18: MCHC 33.3 g/dL (32.5-35.6) 03/22/22 18:25 RDW 14.7 % (12.0-14.8) 03/22/22 18:25 Plt Count 257 x10E3/uL (150-450) 03/22/22 18:25 MPV 7.5 fl (6.6-10.1) 03/22/22 18:25 Neut % (Auto) 72.6 % (.) 03/22/22 18: Lymph % (Auto) 11.4 % (.) 03/22/22 18: Twiggs % (Auto) 15.0 % (.) 03/22/22 18: Eos % (Auto) 0.7 % (.) 03/22/22 18: Baso % (Auto) 0.3 % (.) 03/22/22 18:25 Nucleat RBC Rel Count 0.2 /100 WBC (0-0.5) 03/22/22 18:25 Neut # (Auto) 6.4 x10E3/uL (1.8-7.7) 03/22/22 18:25 Lymph # (Auto) 1.0 x10E3/uL (1.00-4.8) 03/22/22 18:25 Twiggs # (Auto) 1.3 x10E3/uL (0.0-0.8) H 03/22/22 18:25 Eos # (Auto) 0.1 x10E3/uL (0.0-0.45) 03/22/22 18:25 Baso # (Auto) 0.0 x10E3/uL (0.0-0.2) 03/22/22 18: Monocyte Dist Width 27.64 % (0.00-20.00) H 03/22/22 18:25 PT 13.4 Seconds (9.0-12.9) H 03/22/22 18:25 INR 1.2 03/22/22 18:25 APTT 30.6 Seconds (25.1-36.5) 03/22/22 18:25 PHA Creatinine Clear 25.80 03/22/22 18:25 Sodium 135 mmol/L (136-146) L 03/22/22 18:25 Potassium 3.9 mmol/L (3.5-5.1) 03/22/22 18:25 Chloride 90 mmol/L (95-114) L 03/22/22 18:25 Carbon Dioxide 25.9 mmol/L (22.0-30.0) 03/22/22 18:25 Anion Gap 23.0 mEq/L (6.0-15.0) H 03/22/22 18:25 BUN 35 mg/dL (9-23) H 03/22/22 18:25 Creatinine 2.21 mg/dL (0.64-1.27) H 03/22/22 18:25 Est GFR ( Amer) 34 mL/Min 03/22/22 18:25 Est GFR (Non-Af Amer) 28 mL/Min 03/22/22 18:25 Glucose 126 mg/dL (70-100) H D 03/22/22 18:25 POC Glucose 125 mg/dl 03/22/22 18:26 Calcium 8.6 mg/dL (8.2-10.2) 03/22/22 18:25 Total Bilirubin 1.1 mg/dL (0.3-1.2) 03/22/22 18:25 AST 35 U/L (10-42) 03/22/22 18:25 ALT 24 U/L (10-60) 03/22/22 18:25 Alkaline Phosphatase 75 U/L (32-92) 03/22/22 18:25 Total Creatine Kinase 159 U/L (22-269) 03/22/22 18:25 CK-MB (CK-2) 2.5 ng/mL (0.6-6.3) 03/22/22 18:25 CK-MB (CK-2) Rel Index 1.5 % (0.00-2.50) 03/22/22 18:25 Troponin I High Sens 156 pg/mL (0-20) H* 03/22/22 18:25 Total Protein 8.0 gm/dL (6.1-7.9) H 03/22/22 18:25 Albumin 3.4 gm/dL (3.2-5.5) 03/22/22 18:25 Globulin 4.6 gm/dL 03/22/22 18:25 Albumin/Globulin Ratio 0.7 03/22/22 18:25 Urine Color Yellow (Yellow) 03/22/22 19:52 Urine Appearance Clear (Clear) 03/22/22 19:52 Urine pH 5.5 (5.0-9.0) 03/22/22 19:52 Ur Specific [place] 1.019 (1.001-1.030) 03/22/22 19:52 Urine Protein 300 mg/dL (Negative) H 03/22/22 19:52 Urine Glucose (UA) 500 mg/dL (Normal) H 03/22/22 19:52 Urine Ketones Negative (Negative) 03/22/22 19:52 Urine Occult Blood 1+ (Negative) H 03/22/22 19:52 Urine Nitrite Negative (Negative) 03/22/22 19:52 Urine Bilirubin Negative (Negative) 03/22/22 19:52 Urine Urobilinogen Normal mg/dL (Normal) 03/22/22 19:52 Ur Leukocyte Esterase Negative (Negative) 03/22/22 19:52 Urine RBC 5-9 /HPF (0-4) H 03/22/22 19:52 Urine WBC 3-4 /HPF (0-4) 03/22/22 19:52 Ur Squamous Epith Cells 3-4 /HPF (0-2) H 03/22/22 19:52 Ur Renal Epithelial Cell None seen /HPF (0-1) 03/22/22 19:52 Urine Bacteria None seen (None Seen) 03/22/22 19:52 Hyaline Casts 0-8 /LPF (0-8) 03/22/22 19:52 Fine Granular Casts 1-2 /LPF (0-1) H 03/22/22 19:52 Coarse Granular Casts 3-4 /LPF (0-1) H 03/22/22 19:52 Other Casts None seen /LPF (None Seen) 03/22/22 19:52 Documented By: Mikal Terry DO 03/22/22 21 16 Signed By: <Electronically signed by Mikal Terry DO> 03/23/22 [id number] [facility] Work Phone: History of Present illness Narrative* Patient returns in follow-up of problems as noted. He is doing well. Pacemaker checks have demonstrated minimal breakthroughs of atrial fibrillation in the device checks were reviewed with him and the importance of regular device follow-up was also reinforced and he does have another appointment coming up. * In regards to his other cardiac risk factors which include diabetes hypertension and hyperlipidemiathey all appear to be well addressed treated and on stable regimen and because of this we recommendno adjustments or changes. He has had no problems complaints or other issues revolving around his anticoagulant therapy but he does comment on the expense of this particular medication. An alternative generic equivalent was offered but after discussing it he is will pass on that and continue as before. The merits of diet lifestyle modification exercise and weight loss were also reviewed. -[facility] 250 DO Work Phone: History of Present illness Narrative* Patient returns for follow-up of problems as noted. He is doing well. 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 During the day walks down to the coffee shop several blocks away with no angina dyspnea or postural instability. * Management of diabetes hypertension and hyperlipidemia is reviewed and felt to be adequate and appropriate. Treatment of his paroxysmal atrial fibrillation with current therapy and Xarelto to mitigate stroke risk was also discussed and he is happy to continue as is. He has no problems complaints orside effects related to that anticoagulation. Previously had manifestations of sick sinus syndrome but they have obviously been mitigated by pacemaker implant. Review of recent pacemaker checks demonstrates satisfactory device function and no significant paroxysms of atrial fibrillation. Because ofall the above we suggest continued therapy as is. We did advocate the merits of a modest diet. -[facility] 600 DO Work Phone: History of Present illness NarrativePatient returns in follow-up of problems as noted. In the interim he was hospitalized for COVID-19 infection with brain fog. He is now improving. He had no cardiovascular problems or complications and an echocardiogram was done in the hospital which was unremarkable. Recent pacemaker checks demonstrate satisfactory device performance and treatment of sick sinus syndrome. Additionally there were mi nimal breakthroughs of atrial fibrillation and in the event that they occur he is protected with his long-term anticoagulant therapy. Control of cardiovascular risk factors which include diabetes hypertension and hyperlipidemia is reviewed and adequate management and control of these risk factors appears to been accomplished. Because of all the above we suggest no change and follow-up as noted. Again the merits of diet exercise and weight loss were advocated.[facility] 250 DO Work Phone: History of Present illness NarrativePatient returns in follow-up of problems as noted. In the interim he is done well. He denies any arrhythmia symptomatology and he is tolerating rate control with anticoagulant therapy well. Pacemakerchecks are reviewed and they demonstrate satisfactory device performance and no underlying arrhythmias that necessitate treatment and/or changes in therapy. His diabetes hypertension and hyperlipidemia are all well controlled. He is tolerating anticoagulant therapy without complication or complaint. He questions, though, the need for thyroid supplementation. He previously was hypothyroid on amiodarone which ultimately was stopped. I suggested that we perform a thyroid panel and determine if in fact levothyroxine could be stopped. If so we will contact him but otherwise he will continue as before. As before he was reminded over the merits of diet and weight loss.[facility] 250 DO Work Phone: Hospital Discharge instructions Additional Instructions Continue Xarelto at the current dose until you finish the supply that you have, after which fill and start the Eliquis blood thinner. Do not take both of them at the same time. No lifting greater than equal to 10 pounds for 5 days with the right arm. DISCHARGE INSTRUCTIONS FOR CARDIAC MICROBIAL SPECIALIST PHONE NUMBER OF YOUR PHYSICIAN: [phone] PROCEDURE: Heart Cath The following instructions have been prepared to help you care for yourself, or be cared for upon your return home. 1. You were given conscious sedation. Do not operate a vehicle, power tools, make important decisions, or drink alcohol for 24 hours. You might be drowsy or light headed. Return to the Emergency Room if you have trouble breathing, walking or nausea and vomiting. 2. FOR BLEEDING: Apply continuous pressure to the site and call 911. 3. Operative Site Care: Keep the dressing clean and dry. You may change the dressing only if soiled or wet. You may remove the dressing the following morning. You may wash over the puncture site in the shower. If the puncture site is at the wrist no soaking for 3 days. Some bruising or slight swelling may be present. -Signs of infection are redness, warmth, swelling, getting more sore, colored drainage, fever or chills. -Should the arm or leg become cold, numb, blue or white, call the mobile crane operator immediately. 4. ACTIVITY: You are advised to go directly home from the hospital. Restrict your activities for the rest of the day. Resume light or normal activities tomorrow. Do not engage in any activity that will stress the puncture site. Avoid heavy lifting (over 15 lbs.), straining or bending at the catheter site for 48 hours after discharge. If the puncture site is at the wrist do not manipulate wrist for 24 hours and no lifting more than 3 lbs for 3 days. 5. DIET:You may eat your regular diet when you desire. 6. MEDICATIONS: Resume your daily prescription schedule. Prescriptions may be sent with you if needed. Use as directed. When taking pain medications, you may experience dizziness or drowsiness. Do not drink alcohol or drive when taking pain medications. 7. If you should experience episodes of angina e.g. chest discomfort, heaviness, tightness, pressure, burning, with or without radiation to the neck, jaws, arms, or back- Use 1 Nitrostat under your tongue every 5-10 minutes, and up to 3 tablets. If no relief- Call 911 and go to the nearest Emergency Room. -Notify the office for recurrent angina, chest pain or other concerns. You may NOT drive yourself home! Follow the medication instructions provided on your discharge. If the dosages and instructions on this sheet differ from the dosage and instructions on the bottle, follow the instructions on the bottle. [facility] is not responsible for incorrect prescription information provided by the patient during their visit. Do not stop your medications without consulting your health care provider. Please take the list with you to your next doctor's appointment. You have tested positive for Covid-19, please see attached instructions and follow up with the Health Department for further instructions. Take Lasix 40 mg daily to take 1/2-hour after spironolactone dose as needed lower extremity swelling, abnormal weight gain, abnormal shortness of breath.[facility] Work Phone: Hospital Discharge instructions Additional Instructions I may not have addressed or treated all of your medical illnesses or the abnormal blood work or imaging studies during this hospitalization. Please ask your primary care provider to obtain [facility] records entirely to follow up on all of the abnormal physical, laboratory, and imaging findings that I have not addressed. Check your blood sugar 3 times a day before meals. Document these numbers on a blood glucose log and bring them with you to your follow-up appointment with your primary care doctor. Communicate with your primary care doctor or occupational medicine specialist if your blood sugar is under 100 or above 300 on 2 consecutive checks. Communicate with your primary care doctor or occupational medicine specialist if you have any questions about your diabetes medications. Signs of a low blood sugar include sweating, racing heart, dizziness and/or weakness. Check your blood sugar if you have any of the symptoms. Please return back to the emergency room or seek medical attention if your symptoms worsen or return. Discharging you from [facility] does not mean that your medical care ends here and now. You may still need additional monitoring, work up, investigation, and treatment plan to be handled from this point on by out patient providers including your primary care provider and specialists. For any medication question, please contact your retail pharmacist or your primary care provider. Thank you.[facility] Work Phone: Instructions* Attachments The following attachments cannot be sent through Care Everywhere. * Diabetic Neuropathy (Irish) * Peripheral Neuropathy (Irish) * Varicose veins and other vein disease in the legs (Irish) documented in this encounterProBet[facility] SystemInstructionsNot on file documented in this encounterProBethes[facility] SystemInstructionsNot on file documented in this encounterProBethesda [facility] SystemInstructionsNot on file documented in this encounterProBethesda [facility] SystemInstructionsNot on file documented in this encounterProBethesda [facility] SystemInstructionsNot on file documented in this encounterProBethesda North Hospital SystemProgress note Author Kevin Phillips [facility] March 23, 2022 2:07pm Note Date/Time March 23, 2022 9:36am [facility] [address] [place] [address] Hospitalist Progress Note Signed Patient: Jamel Bonds MR#: [id number] : 1935 Acct:[id number] Age/Sex: 86 / M Adm Date: 2 Loc: Room: [address] [place] [address] Type: ADM IN Attending Dr: Kevin Phillips MD Copies to: ~ Date of Service: 03/23/2022 Subjective Subjective Narrative: Attending note: I saw the patient personally on the day of encounter. I reviewed the relevant history, and performed the cheema elements of the physical examination. I reviewedthe relevant laboratory workup, radiological studies and the current treatment plan. I formulated the plan of care and confirmed it with the resident/student/MILL WORKER. Patient resting in bed comfortably. No at bedside. Does state that he remembers getting discharge from the hospital yesterday, does not quite remembergetting home. Does not remember the squad picking him back up and bring to the hospital. Patient was reevaluated with at bedside. states that she has never seen patient like this before and is very concerned for his health. 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 When she leftshe was sleeping in bed but when she got home he was standing at the sink cold and clammy, she thought maybe his sugar was low so went to get his materials to check as he is diabetic. Patient did not recognize her, was talking out of his head, refused to have his blood glucose checked and was fighting her to do anything. She states this is completely unlike him and has never happened before. Upon further questioning, both patient and admit that he has dealtwith depression for years and years and has never been treated for it. He is also grieving a good friend of his who a few weeks ago and states that his is actually where he got COVID. He did become tearful when discussing this. Exam Physical Exam Vital Signs: Temp Pulse Resp BP Pulse Ox O2 Del Method O2 Flow Rate 98.1 F 61 20 132/72 95 Room Air 2 03/23/22 08:00 03/23/22 08:13 03/23/22 08:00 03/23/22 08:00 03/23/22 08:00 03/23/22 08:00 03/23/22 08:00 Narrative: CONSTITUTIONAL: No apparent distress, alert, oriented to person, place. Is unsure of what year it is but is able to tell me the current president HEAD: Normocephalic, atraumatic EYES: EOMI, pupils equal and reactive, conjunctiva normal RESPIRATORY: No distress, lungs clear bilaterally, symmetric chest rise, no wheezes/rales/rhonchi CARDIOVASCULAR: Regular rate and regular rhythm, no murmurs, symmetric palpable dorsalis pedis pulses ABDOMEN: Soft, non-tender, non-distended, normal bowel sounds SKIN: Intact, no rash, no trauma NEURO: Cranial nerves grossly intact, no focal neurologic signs PSYCHIATRIC: Normal affect, slightly confused Objective Lab Results 03/23/22 08:04 03/23/22 08:04 Meds Allergies and Active Meds Allergies Penicillins Adverse Reaction (Verified 03/22/22 18:26) Difficulty Breathing Active Meds: Active Medications Generic Name Dose Route Start Last Admin Trade Name Freq PRN Reason Stop Dose Admin Acetaminophen 1,000 mg 03/23/22 03:29 03/23/22 04:12 Acetaminophen 500 Mg Tablet PO 03/23/23 03:28 1,000 mg Q6H PRN Administration Pain Apixaban 5 mg 03/23/22 09:00 03/23/22 08:13 Apixaban 5 Mg Tablet PO 03/23/23 08:59 5 mg BID SLIM Administration Atorvastatin Calcium 40 mg 03/23/22 09:00 03/23/22 08:13 Atorvastatin 40 Mg Tablet PO 03/23/23 08:59 40 mg DAILY SLIM Administration Calcium Carbonate 1 tab 03/23/22 09:00 03/23/22 08:13 Calcium Carbonate/Vitamin D3 500 Mg/200 Unit Tablet PO 03/23/23 08:59 1 tab BID SLIM Administration Canagliflozin 300 mg 03/23/22 07:30 03/23/22 08:13 Canagliflozin 300 Mg Tablet PO 03/23/23 07:29 300 mg DAILY.AC.BKFAST SLIM Administration Digoxin 125 mcg 03/23/22 09:00 03/23/22 08:13 Digoxin 125 Mcg Tablet PO 03/23/23 08:59 125 mcg DAILY SLIM Administration Fluticasone Propionate 2 spray 03/23/22 09:00 03/23/22 08:14 Fluticasone Propionate Merr[place] 120 [place]/16 Gm Bottle INTRANASAL 03/23/23 08:59 2 spray DAILY SLIM Administration Furosemide 40 mg 03/23/22 03:29 Furosemide 40 Mg Tablet PO 03/23/23 03:28 DAILY PRN Lower extremity swelling, abnormal weight gain,SOB Lactated Ringer's 1,000 mls @ 75 mls/hr 03/23/22 02:15 03/23/22 03:41 Lactated Ringers IV 03/23/23 02:14 75 mls/hr .[id number] SLIM Administration Magnesium Sulfate 2 gm in 50 mls @ 25 mls/hr 03/23/22 02:13 Magnesium Sulf 2gm-*Swfi* IV 03/23/23 02:12 DAILY PRN Magnesium < 1.6 Insulin Aspart Prota 70%/Aspart 30% 28 units 03/23/22 11:30 Insulin Aspart Protamin/Aspart 300 Units/3 Ml Insuln.Pen SUBCUT 03/23/23 11:29 DAILY.AC.LUNCH SLIM Insulin Aspart Prota 70%/Aspart 30% 34 units 03/23/22 16:30 Insulin Aspart Protamin/Aspart 300 Units/3 Ml Insuln.Pen SUBCUT 03/23/23 16:29 DAILY.AC SUPPER SLIM Insulin Aspart Prota 70%/Aspart 30% 38 units 03/23/22 07:30 03/23/22 09:23 Insulin Aspart Protamin/Aspart 300 Units/3 Ml Insuln.Pen SUBCUT 03/23/23 07:29 38 units DAILY.AC.BKFAST SLIM Administration Levothyroxine Sodium 25 mcg 03/23/22 06:30 03/23/22 05:38 Levothyroxine 25 Mcg Tablet PO 03/23/23 06:29 25 mcg DAILY@0630 SLIM Administration Loratadine 10 mg 03/23/22 03:29 Loratadine 10 Mg Tablet PO 03/23/23 03:28 DAILY PRN Allergy Symptoms Magnesium Oxide 400 mg 03/23/22 22:00 Magnesium Oxide 400 Mg Tablet PO 03/23/23 21:59 QHS SLIM Melatonin 10 mg 03/23/22 22:00 Melatonin 5 Mg Tablet PO 03/23/23 21:59 HS SLIM Metoprolol Succinate 25 mg 03/23/22 09:00 03/23/22 08:13 Metoprolol Succinate 25 Mg Tab.Er.24h PO 03/23/23 08:59 25 mg DAILY SLIM Administration Multivitamins 1 tab 03/23/22 09:00 03/23/22 08:13 Multivitamin 1 Tab Tablet PO 03/23/23 08:59 1 tab DAILY SLIM Administration Omeprazole 20 mg 03/23/22 09:00 03/23/22 09:23 Omeprazole 20 Mg Capsule.Dr PO 03/23/23 08:59 20 mg DAILY SLIM Administration Sodium Chloride 0 ml 03/22/22 18:31 Sodium Chloride 0.9 % 10 Ml Syringe IV-PUSH 03/22/23 18:30 PRN PRN Flush Spironolactone 25 mg 03/23/22 09:00 03/23/22 08:13 Spironolactone 25 Mg Tablet PO 03/23/23 08:59 25 mg DAILY SLIM Administration Tamsulosin HCl 0.4 mg 03/23/22 09:00 03/23/22 08:13 Tamsulosin 0.4 Mg Cap.Er.24h PO 03/23/23 08:59 0.4 mg DAILY SLIM Administration A&P - Hospitalist Assessment/Plan (1) Altered mental status: (2) Elevated troponin: (3) Depressed: Plan Transient alteration in consciousness Patient has not had issues with confusion or altered mental status in the past per family and patient himself Currently alert and oriented to person and place but not time Did not follow all commands in the ED CT head negative UA negative Given recent CT head negative and patient being on appropriate anticoagulation, even if a thrombolic event was present, he is on appropriate therapy No neurologic deficits at this time nor was there any neurologic deficits reported aside from confusion upon arrival to the ED PT/OT 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 hank ahn will highly recommend outpatient follow-up with PCP for treatment of depression Depression Has been chronic for years, has never been treated for it Recommended outpatient follow-up with PCP to manage depression as this could be contributing to his altered mental status MANFRED Continue fluid hydration Creatinine improved from 2.21 to 1.81 between discharge on 03/22 and admission on 03/23 Elevated troponin Chest had cath procedure performed on 03/21 without evidence of coronary artery disease Denies any chest pain, shortness of breath, cardiac symptoms Troponin had been uptrending during last admission (56, 71, 117, 130) Troponin was 156 upon reevaluation in the emergency department after discharge Unlikely to be ACS at this time given recent cath procedure in the last few daysand no cardiac symptoms Chronic conditions: Type 2 diabetes, hypertension, paroxysmal A. fib DVT prophylaxis: Xarelto, SCDs Diet: Full CODE STATUS: Full Documented By: Kevin Phillips MD 03/23/22 0950 Signed By: <Electronically signed by Kevin Phillips MD> 03/23/22 1407 <Electronically signed by DO ANTHONY Stevens> 03/23/22 1221 [facility] Work Phone: Progress note Author Kevin Phillips [facility] March 24, 2022 3:11pm Note Date/Time March 24, 2022 3: 11pm [facility] [address] [place] [address] Hospitalist Progress Note Signed Patient: Jamel Bonds MR#: [id number] : 1935 Acct:[id number] Age/Sex: 86 / M Adm Date: 2 Loc: Room: [address] [place] [address] Type: ADM IN Attending Dr: eKvin Phillips MD Copies to: ~ Date of Service: 03/24/2022 Subjective Subjective Narrative: Patient is improving today. According to spouse who is at bedside, he is about 90% back to his baseline. There is no evidence of any aphasia or any other focal motor deficit Heart is regular Lungs are clear Abdomen soft benign Exam Physical Exam Vital Signs: Temp Pulse Resp BP Pulse Ox O2 Del Method O2 Flow Rate 98.2 F 60 18 144/75 H 95 Room Air 2 03/24/22 09:47 03/24/22 09:47 03/24/22 09:47 03/24/22 09:47 03/24/22 09:47 03/24/22 09:47 03/23/22 08:00 Objective Lab Results 03/23/22 08:04 03/23/22 08:04 Meds Allergies and Active Meds Allergies Penicillins Adverse Reaction (Verified 03/22/22 18:26) Difficulty Breathing Active Meds: Active Medications Generic Name Dose Route Start Last Admin Trade Name Efrainq PRN Reason Stop Dose Admin Acetaminophen 1,000 mg 03/23/22 03:29 03/23/22 04:12 Acetaminophen 500 Mg Tablet PO 03/23/23 03:28 1,000 mg Q6H PRN Administration Pain Apixaban 5 mg 03/23/22 09:00 03/24/22 09:44 Apixaban 5 Mg Tablet PO 03/23/23 08:59 5 mg BID SLIM Administration Atorvastatin Calcium 40 mg 03/23/22 09:00 03/24/22 09:44 Atorvastatin 40 Mg Tablet PO 03/23/23 08:59 40 mg DAILY LSIM Administration Canagliflozin 300 mg 03/23/22 07:30 03/24/22 05:20 Canagliflozin 300 Mg Tablet PO 03/23/23 07:29 300 mg DAILY.AC.BKFAST SLIM Administration Dextrose 0 gm 03/23/22 19:04 Dextrose 20 % In Water 10 Gm/50 Ml Syringe IV-PUSH 03/23/23 19:03 PRN PRN Hypoglycemia Digoxin 125 mcg 03/23/22 09:00 03/24/22 09:44 Digoxin 125 Mcg Tablet PO 03/23/23 08:59 125 mcg DAILY SLIM Administration Fluticasone Propionate 2 spray 03/23/22 09:00 03/24/22 09:44 Fluticasone Propionate Merr[place] 120 [place]/16 Gm Bottle INTRANASAL 03/23/23 08:59 2 spray DAILY SLIM Administration Glucose 0 gm 03/23/22 19:04 Dextrose 40% Gel 15 Gm Tube PO 03/23/23 19:03 PRN PRN Hypoglycemia Lactated Ringer's 1,000 mls @ 75 mls/hr 03/23/22 19:00 03/24/22 09:02 Lactated Ringers IV 03/23/23 18:59 75 mls/hr .[id number] SLIM Administration Insulin Aspart Prota 70%/Aspart 30% 28 units 03/23/22 11:30 03/24/22 12:41 Insulin Aspart Protamin/Aspart 300 Units/3 Ml Insuln.Pen SUBCUT 03/23/23 11:29 Not Given DAILY.AC.LUNCH SLIM Insulin Aspart Prota 70%/Aspart 30% 34 units 03/23/22 16:30 03/23/22 18:51 Insulin Aspart Protamin/Aspart 300 Units/3 Ml Insuln.Pen SUBCUT 03/23/23 16:29 34 units DAILY.AC SUPPER SLIM Administration Insulin Aspart Prota 70%/Aspart 30% 38 units 03/23/22 07:30 03/24/22 09:45 Insulin Aspart Protamin/Aspart 300 Units/3 Ml Insuln.Pen SUBCUT 03/23/23 07:29 38 units DAILY.AC.BKFAST SLIM Administration Levothyroxine Sodium 25 mcg 03/23/22 06:30 03/24/22 05:20 Levothyroxine 25 Mcg Tablet PO 03/23/23 06:29 25 mcg DAILY@0630 SLIM Administration Melatonin 10 mg 03/23/22 22:00 03/23/22 21:24 Melatonin 5 Mg Tablet PO 03/23/23 21:59 10 mg HS SLIM Administration Metoprolol Succinate 25 mg 03/23/22 09:00 03/24/22 09:44 Metoprolol Succinate 25 Mg Tab.Er.24h PO 03/23/23 08:59 25 mg DAILY SLIM Administration Omeprazole 20 mg 03/23/22 09:00 03/24/22 09:45 Omeprazole 20 Mg Capsule.Dr PO 03/23/23 08:59 Not Given DAILY SLIM Sodium Chloride 0 ml 03/22/22 18:31 Sodium Chloride 0.9 % 10 Ml Syringe IV-PUSH 03/22/23 18:30 PRN PRN Flush Spironolactone 25 mg 03/23/22 09:00 03/24/22 09:44 Spironolactone 25 Mg Tablet PO 03/23/23 08:59 25 mg DAILY SLIM Administration Tamsulosin HCl 0.4 mg 03/23/22 09:00 03/24/22 09:44 Tamsulosin 0.4 Mg Cap.Er.24h PO 03/23/23 08:59 0.4 mg DAILY SLIM Administration A&P - Hospitalist Assessment/Plan (1) Altered mental status: (2) Elevated troponin: (3) Depressed: Plan Transient alteration in consciousness Etiology is not clear. Patient with recent COVID-19 infection during his prior admission. He did have a transient episode of what sounds to be aphasia, lasting about 30 minutes, according to spouse. Will obtain MRI brain. If positive, will do CTA head neck or alternative studies. It is possible however that he had encephalopathy related to COVID-19 infection. A component of pseudodementia related to untreated depression could be also present. Depression Has been chronic for years, has never been treated for it Recommended outpatient follow-up with PCP to manage depression as this could be contributing to his altered mental status MANFRED. CKD stage III. Renal function close to baseline. DC fluids. Elevated troponin Heart cath few days ago, minimal CAD. Medical therapy recommended Chronic conditions: Type 2 diabetes, hypertension, paroxysmal A. fib DVT prophylaxis: Xarelto, SCDs Diet: Full CODE STATUS: Full Documented By: Kevin Phillips MD 03/24/22 1509 Signed By: <Electronically signed by Kevin Phillips MD> 03/24/22 1511 [facility] Work Phone: Progress note Author Aline Pierre [facility] March 25, 2022 10:18am Note Date/Time March 25, 2022 10 :18am [facility] [address] [place] [address] Hospitalist Progress Note Signed Patient: Jamel Bonds MR#: [id number] : 1935 Acct:[id number] Age/Sex: 86 / M Adm Date: 2 Loc: Room: [address] [place] [address] Type: ADM IN Attending Dr: Aline Pierre MD Copies to: ~ Date of Service: 03/25/2022 Subjective Subjective Narrative: Patient is feeling better. Awake and oriented. Denies having any confusion or disorientation. No chest pain or palpitation. No abdominal pain, nausea or vomiting. No cough or congestion Exam Physical Exam Vital Signs: Temp Pulse Resp BP Pulse Ox O2 Del Method O2 Flow Rate 98.7 F 61 20 132/68 93 L Room Air 2 03/25/22 08:00 03/25/22 09:45 03/25/22 08:00 03/25/22 08:00 03/25/22 08:00 03/25/22 08:00 03/23/22 08:00 Narrative: [pt is awake and alert. oriented to place, time and person HEENT: [place] conjunctiva and NL buccal mucosa Neck: Supple, no tenderness Endocrine: No Thyromegaly. Vascular: No JVD or carotid bruit. Lymphatic: No cervical lymphadenopathy. Chest: Fine crackles. Heart RRR, no extra sound or murmur. Abd: Soft, no tenderness, no rebound and no rigidity. Increase abd girth therefore clinically I could not exclude the possibility of intra abd mass or organomegaly. LE: No cyanosis or clubbing, no varices or edema. Neuro: A A O. Nl speech, comprehension and attention. Nl and symetrical motor and tone examination through out. Patient needs assist to stand up and ambulating. Nonfocal []] Objective Lab Results 03/23/22 08:04 03/23/22 08:04 Meds Allergies and Active Meds Allergies Penicillins Adverse Reaction (Verified 03/22/22 18:26) Difficulty Breathing Active Meds: Active Medications Generic Name Dose Route Start Last Admin Trade Name Freq PRN Reason Stop Dose Admin Acetaminophen 1,000 mg 03/23/22 03:29 03/23/22 04:12 Acetaminophen 500 Mg Tablet PO 03/23/23 03:28 1,000 mg Q6H PRN Administration Pain Apixaban 5 mg 03/23/22 09:00 03/25/22 09:44 Apixaban 5 Mg Tablet PO 03/23/23 08:59 5 mg BID SLIM Administration Atorvastatin Calcium 40 mg 03/23/22 09:00 03/25/22 09:44 Atorvastatin 40 Mg Tablet PO 03/23/23 08:59 40 mg DAILY SLIM Administration Canagliflozin 300 mg 03/23/22 07:30 03/25/22 06:58 Canagliflozin 300 Mg Tablet PO 03/23/23 07:29 Not Given DAILY.AC.BKFAST SLIM Dextrose 0 gm 03/23/22 19:04 Dextrose 20 % In Water 10 Gm/50 Ml Syringe IV-PUSH 03/23/23 19:03 PRN PRN Hypoglycemia Digoxin 125 mcg 03/23/22 09:00 03/25/22 09:45 Digoxin 125 Mcg Tablet PO 03/23/23 08:59 125 mcg DAILY SLIM Administration Fluticasone Propionate 2 spray 03/23/22 09:00 03/25/22 09:45 Fluticasone Propionate [place] 120 [place]/16 Gm Bottle INTRANASAL 03/23/23 08:59 2 spray DAILY SLIM Administration Glucose 0 gm 03/23/22 19:04 Dextrose 40% Gel 15 Gm Tube PO 03/23/23 19:03 PRN PRN Hypoglycemia Insulin Aspart Prota 70%/Aspart 30% 24 units 03/25/22 11:30 Insulin Aspart Protamin/Aspart 300 Units/3 Ml Insuln.Pen SUBCUT 03/25/23 11:29 DAILY.AC.LUNCH SLIM Insulin Aspart Prota 70%/Aspart 30% 28 units 03/24/22 16:30 03/24/22 16:11 Insulin Aspart Protamin/Aspart 300 Units/3 Ml Insuln.Pen SUBCUT 03/24/23 16:29 28 units DAILY.AC SUPPER SLIM Administration Insulin Aspart Prota 70%/Aspart 30% 30 units 03/25/22 07:30 03/25/22 09:46 Insulin Aspart Protamin/Aspart 300 Units/3 Ml Insuln.Pen SUBCUT 03/25/23 07:29 30 units DAILY.AC.BKFAST SLIM Administration Levothyroxine Sodium 25 mcg 03/23/22 06:30 03/25/22 06:17 Levothyroxine 25 Mcg Tablet PO 03/23/23 06:29 25 mcg DAILY@0630 SLIM Administration Melatonin 10 mg 03/23/22 22:00 03/24/22 21:29 Melatonin 5 Mg Tablet PO 03/23/23 21:59 10 mg HS SLIM Administration Metoprolol Succinate 25 mg 03/23/22 09:00 03/25/22 09:44 Metoprolol Succinate 25 Mg Tab.Er.24h PO 03/23/23 08:59 25 mg DAILY SLIM Administration Omeprazole 20 mg 03/23/22 09:00 03/25/22 09:44 Omeprazole 20 Mg Capsule.Dr PO 03/23/23 08:59 20 mg DAILY SLIM Administration Sodium Chloride 0 ml 03/22/22 18:31 Sodium Chloride 0.9 % 10 Ml Syringe IV-PUSH 03/22/23 18:30 PRN PRN Flush Spironolactone 25 mg 03/23/22 09:00 03/25/22 09:44 Spironolactone 25 Mg Tablet PO 03/23/23 08:59 25 mg DAILY SLIM Administration Tamsulosin HCl 0.4 mg 03/23/22 09:00 03/25/22 09:44 Tamsulosin 0.4 Mg Cap.Er.24h PO 03/23/23 08:59 0.4 mg DAILY SLIM Administration A&P - Hospitalist Assessment/Plan (1) Altered mental status: (2) Elevated troponin: (3) Depressed: Plan Transient alteration in consciousness Etiology is not clear. Patient with recent COVID-19 infection during his prior admission. He did have a transient episode of what sounds to be aphasia, lasting about 30 minutes, according to spouse. Will obtain MRI brain. If positive, will do CTA head neck or alternative studies. It is possible however that he had encephalopathy related to COVID-19 infection. A component of pseudodementia related to untreated depression could be also present. Depression Has been chronic for years, has never been treated for it Recommended outpatient follow-up with PCP to manage depression as this could be contributing to his altered mental status MANFRED. CKD stage III. Renal function close to baseline. DC fluids. Elevated troponin Heart cath few days ago, minimal CAD. Medical therapy recommended Chronic conditions: Type 2 diabetes, hypertension, paroxysmal A. fib DVT prophylaxis: Xarelto, SCDs Diet: Full CODE STATUS: Full The aforementioned paragraph was documented by my colleague on 04/12/2022 Continue current treatment plan PT OT eval and treatment. Evaluate for short-term skilled care versus rehab. MRI is pending. Documented By: Aline Pierre MD 03/25/22 1017 Signed By: <Electronically signed by Aline Pierre MD> 03/25/22 1018 [facility] Work Phone: Progress note Author Katyfransico Jerry [facility] March 26, 2022 2:03pm Note Date/Time March 26, 2022 9: 07am [facility] [address] [place] [address] Neurology Progress Note Signed Patient: Jamel Bonds MR#: [id number] : 1935 Acct:[id number] Age/Sex: 86 / M Adm Date: 2 Loc: Room: [address] [place] [address] Type: ADM IN Attending Dr: Aline Pierre MD Copies to: ~ Date of Service: 03/26/2022 Subjective Subjective Narrative: Patient denies any confusion. Family states that he is close to his baseline. Patient denies any episodes of lethargy or altered awareness. Patient denies any unilateral numbness, weakness, or vision changes. Review of Systems Review of Systems Review of systems: Patient denies any headaches, nausea, or vomiting. Exam Physical Exam Vital Signs: Temp Pulse Resp BP Pulse Ox O2 Del Method O2 Flow Rate 97.2 F L 64 18 150/81 H 95 Room Air 2 03/26/22 08:00 03/26/22 08:06 03/26/22 08:00 03/26/22 08:00 03/26/22 08:00 03/26/22 08:00 03/23/22 08:00 Neuro Other: Neurological exam: General: The patient is awake alert and oriented to person and hospital. Language is intact. Cranial nerves: Pupils equal round reactive light and accommodation, extraocularmovements intact, visual mackenzie are full to confrontation, sensations intact in the face, hearing is intact to finger rub, palate elevates bilaterally, tongue protrudes midline, shoulder shrug is symmetric. Motor: Strength testing is 5 out of 5 in all 4 extremities, deep tendon reflexesare 1+ and symmetric throughout, plantar reflexes flexor, tone is normal throughout. Sensory: light touch intact in all 4 extremities Cerebellar/gait: No ataxia noted on finger to nose Objective Vital Signs Vital Signs: Vital Signs - 24 hr 03/25/22 09:45 03/25/22 12:00 03/25/22 16:00 Temperature Pulse Rate 61 61 61 Respiratory Rate 20 20 Blood Pressure 133/67 130/66 02 Sat by Pulse Oximetry 94 L 95 Oxygen Delivery Method Room Air Room Air 03/25/22 20:00 03/25/22 20:00 03/26/22 00:00 Temperature Pulse Rate 56 L Respiratory Rate 14 14 Blood Pressure 116/71 02 Sat by Pulse Oximetry 94 L Oxygen Delivery Method Room Air Room Air 03/26/22 04:00 03/26/22 08:00 03/26/22 08:06 Temperature 97.2 F L Pulse Rate 60 64 64 Respiratory Rate 14 18 Blood Pressure 119/79 150/81 H 02 Sat by Pulse Oximetry 94 L 95 Oxygen Delivery Method Room Air Room Air Labs 03/26/22 06:15 03/26/22 06:15 Lab Results: 03/26/22 08:00: Ammonia 11 Therapy Recommendations Therapy Recommendations: OT Recommendations OT Self-care DME Recommended Long Handled Sponge,Grab Bar,Shower Seat,Toilet Rail OT Mobility DME Recommended Walker, Wheeled OT Recommended Discharge Home with Home Health Location OT Recommended Services at Physical Therapy,Occupational Therapy Discharge PT Recommendations PT Recommended Discharge Home with Home Health,Home with Outpatient Location PT Recommended Services at Physical Therapy Discharge Assessment/Plan (1) Altered mental status: Code(s): R41.82 - Altered mental status, unspecified Status: Acute Plan The patient is an 86-year-old male with confusion which likely is secondary to amultifactorial metabolic encephalopathy.? The patient has had recent COVID infection and may have some cognitive impairment related to this viral syndrome.? The patient likely has some component of baseline cognitive impairment exacerbated by recent hospitalization.? The patient may have a component of sleep-wake cycle disturbance contributing to his symptoms.? In addition the patient has what sounds like major depression which may be causing some baselinecognitive impairment.? I cannot completely exclude an acute intracranial processgiven the patient's increased risk for stroke due to age, risk factors, and recent viral infection with COVID. 1. CT scan of the head was nonacute x2. 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 2. EEG pending 3. COVID-19 positive. Chest x-ray showed developing bilateral parenchymal changes. T-max since admission 100.3. No leukocytosis. Treatment of COVID perprimary team 4. Creatinine 1.38. Appears to be baseline. BUN is normal 5. LFTs normal, ammonia 11 6. B12 811, vitamin D is pending. We will check TSH 7. Urinalysis not consistent with infection. 8. Documented By: Magdaleno Vazquez MD 03/26/22 0904 Signed By: <Electronically signed by MD Magdaleno Vazquez> 03/26/22 1307 <Electronically signed by RAIN Jerry> 03/26/22 1403 [facility] Work Phone: Reason for referral (narrative)* Diagnostic Procedure Only (Routine) - Pending Review Specialty Diagnoses / Procedures Referred By Bárbara t Referred To Contact MOLECULAR & FUNCTIONAL IMAGING Diagnoses Prostate CA (HCC) PSA elevation Procedures NM PET/CT PROSTATE WHOLE BODY IMAGING PET IMAGING CT ATTENUATION SKULL BASE MID-THIGH Shaheen Diehl MD [address] [place] [address] [place] [address] Molecular & Functional Imaging [address] [id number] Referral ID Status Reason Start Date Expiration Date Visits Requested Visits Authorized [id number] Pending Review Auto-Generat ed Referral 05/31/2023 06/29/2024 1 1 [facility] for referral (narrative)* Diagnostic Procedure Only (Routine) - Closed Specialty Diagnoses / Procedures Referred By Bárbara dhaliwal Referred To Contact MOLECULAR & FUNCTIONAL IMAGING Diagnoses Prostate CA (HCC) PSA elevation Procedures NM PET/CT PROSTATE WHOLE BODY IMAGING PET IMAGING CT ATTENUATION SKULL BASE MID-THIGH Shaheen Diehl MD [address] [place] [address] [address] [id number] Molecular & Functional Imaging [address] [place] [address] Referral ID Status Reason Start Date Expiration Date V isits Requested Visits Authorized [id number] Closed Auto-Generate d Referral 05/31/2023 06/29/2024 1 1 [facility] for referral (narrative)* Consultation (Routine) - Authorized Specialty Diagnoses / Procedures Referred By Bárbara dhaliwal Referred To Contact Cardiology Diagnoses Sick sinus syndrome (Multi) Procedures Follow Up In Cardiology David Jackson MD [address] [place] [address], [address] [address] David Jackson MD [address] [place] [address] 2, [address] [address] Referral ID Status Reason Start Date Expiration Date V isits Requested Visits Authorized [id number] Authorized 12/24/2023 12/23/2024 1 1 [facility] Work Phone: [facility] Rehabilitation - Outpatient (Routine) - Authorized Specialty Diagnoses / Procedures Referred By Contac t Referred To Contact Physical Therapy Diagnoses Low back pain, unspecified Procedures [place] PHYSICAL THERAPY EVALUATION LOW COMPLEX 20 MINS [place] OFFICE/OUTPATIENT [facility] Lila Travis MD [address] [address] Phone: tel: fax: [facility] [address] [address] Phone: tel: fax: Referral ID Status Reason Start Date Expiration Date V isits Requested Visits Authorized [id number] Authorized 02/24/2024 03/23/2024 30 30 [facility] N[facility]* Rehabilitation - Outpatient (Routine) - Closed Specialty Diagnoses / Procedures Referred By Contac t Referred To Contact Physical Therapy Diagnoses Low back pain, unspecified Procedures [place] PHYSICAL THERAPY EVALUATION LOW COMPLEX 20 MINS [place] OFFICE/OUTPATIENT [facility] Lila Ervin MD [address] [address] Phone: tel: fax: [facility] [address] [address] Phone: tel: fax: Referral ID Status Reason Start Date Expiration Date Visits Re quested Visits Authorized [id number] Closed 02/24/2024 03/23/2024 30 30 [facility] N[facility]ative* [place] Prior Authorization (Routine) - Authorized Specialty Diagnoses / Procedures Referred By Contac t Referred To Contact Diagnoses Prostate CA (HCC) PSA elevation Shaheen Diehl MD [address] [facility] [place] [address] Phone: tel: fax: Hematology/Oncology [address] [facility] [place] [address] Phone: tel: fax: Referral ID Status Reason Start Date Expiration Date V isits Requested Visits Authorized [id number] Authorized 07/07/2023 10/05/2023 99 99 [facility] Summary Purpose Family History No Family History Records FoundUnknown Family Member Name Dates Details Family history of emphysema: Father(V17.6, Z82.5) Status:Active Family history of myocardial infarction: Mother(V17.3, Z82.49) Status:Active Family history of lung cance r: Brother(V16.1, Z80.1) Status:Active Unknown Family Member Name Dates Details Family history of emphysema: Father(V17.6, Z82.5) Status:Active Family history of myocardial infarction: Mother(V17.3, Z82.49) Status:Active Family history of lung cance r: Brother(V16.1, Z80.1) Status:Active Unknown Family Member Name Dates Details Family history of cardiac di sorder: Sister(V17.49, Z82.49) Status:Active Family history of lung cance r: Brother(V16.1, Z80.1) Status:Active Family history of myocardial infarction: Mother(V17.3, Z82.49) Status:Active Family history of emphysema: Father(V17.6, Z82.5) Status:Active Unknown Family Member Name Dates Details Family history of emphysema: Father(V17.6, Z82.5) Status:Active Family history of myocardial infarction: Mother(V17.3, Z82.49) Status:Active Family history of lung cance r: Brother(V16.1, Z80.1) Status:Active Family history of cardiac di sorder: Sister(V17.49, Z82.49) Status:Active Unknown Family Member Name Dates Details Family history of emphysema: Father(V17.6, Z82.5) Status:Active Family history of myocardial infarction: Mother(V17.3, Z82.49) Status:Active Family history of lung cance r: Brother(V16.1, Z80.1) Status:Active Family history of cardiac di sorder: Sister(V17.49, Z82.49) Status:Active Unknown Family Member Name Dates Details Family history of emphysema: Father(V17.6, Z82.5) Status:Active Family history of myocardial infarction: Mother(V17.3, Z82.49) Status:Active Family history of lung cance r: Brother(V16.1, Z80.1) Status:Active Family history of cardiac di sorder: Sister(V17.49, Z82.49) Status:Active Unknown Family Member Name Dates Details Family history of emphysema: Father(V17.6, Z82.5) Status:Active Family history of myocardial infarction: Mother(V17.3, Z82.49) Status:Active Family history of lung cance r: Brother(V16.1, Z80.1) Status:Active Family history of cardiac di sorder: Sister(V17.49, Z82.49) Status:Active Unknown Family Member Name Dates Details Family history of emphysema: Father(V17.6, Z82.5) Status:Active Family history of myocardial infarction: Mother(V17.3, Z82.49) Status:Active Family history of lung cance r: Brother(V16.1, Z80.1) Status:Active Family history of cardiac di sorder: Sister(V17.49, Z82.49) Status:Active Unknown Family Member Name Dates Details Family history of emphysema: Father(V17.6, Z82.5) Status:Active Family history of myocardial infarction: Mother(V17.3, Z82.49) Status:Active Family history of lung cance r: Brother(V16.1, Z80.1) Status:Active Family history of cardiac di sorder: Sister(V17.49, Z82.49) Status:Active Relationship Condition Age at Onset Recorded Date/T greg Not Specified Diabetes mellitus Unknown Not Specified Myocardial infarction Unknown grandparent Diabetes mellitus Unknown grandparent Malignant neoplasm Unknown Unknown Family Member Name Dates Details Family history of emphysema: Father(V17.6, Z82.5) Status:Active Family history of myocardial infarction: Mother(V17.3, Z82.49) Status:Active Family history of lung cance r: Brother(V16.1, Z80.1) Status:Active Family history of cardiac di sorder: Sister(V17.49, Z82.49) Status:Active Unknown Family Member Name Dates Details Family history of emphysema: Father(V17.6, Z82.5) Status:Active Family history of myocardial infarction: Mother(V17.3, Z82.49) Status:Active Family history of lung cance r: Brother(V16.1, Z80.1) Status:Active Family history of cardiac di sorder: Sister(V17.49, Z82.49) Status:Active Unknown Family Member Name Dates Details Family history of emphysema: Father(V17.6, Z82.5) Status:Active Family history of myocardial infarction: Mother(V17.3, Z82.49) Status:Active Family history of lung cance r: Brother(V16.1, Z80.1) Status:Active Family history of cardiac di sorder: Sister(V17.49, Z82.49) Status:Active Unknown Family Member Name Dates Details Family history of emphysema: Father(V17.6, Z82.5) Status:Active Family history of myocardial infarction: Mother(V17.3, Z82.49) Status:Active Family history of lung cance r: Brother(V16.1, Z80.1) Status:Active Family history of cardiac di sorder: Sister(V17.49, Z82.49) Status:Active Unknown Family Member Name Dates Details Family history of emphysema: Father(V17.6, Z82.5) Status:Active Family history of myocardial infarction: Mother(V17.3, Z82.49) Status:Active Family history of lung cance r: Brother(V16.1, Z80.1) Status:Active Family history of cardiac di sorder: Sister(V17.49, Z82.49) Status:Active Unknown Family Member Name Dates Details Family history of emphysema: Father(V17.6, Z82.5) Status:Active Family history of myocardial infarction: Mother(V17.3, Z82.49) Status:Active Family history of lung cance r: Brother(V16.1, Z80.1) Status:Active Family history of cardiac di sorder: Sister(V17.49, Z82.49) Status:Active Relationship Condition Age at Onset Recorded Date/T greg mother Diabetes mellitus Unknown mother Myocardial infarction Unknown grandparent Diabetes mellitus Unknown grandparent Malignant neoplasm Unknown Advance Directives No Advanced Directives Records FoundDocuments on File Type Date Recorded Patient Clerical Supervisor Expl anation Advance Directive(s) 04/26/2009 6:15 AM Advance Directive Response Recorded Date/ Time Advance Directives No February 27, 2017 12:22pm Documents on File Type Date Recorded Patient Clerical Supervisor Expl anation Advance Directive(s) 04/26/2009 6:15 AM Advance Directive Response Recorded Date/ Time Advance Directives No February 27, 2017 11:22am Advance Directive Response Recorded Date/ Time Advance Directives No June 08 025 9:47am Chief Complaint JAMEL BONDS is being seen for a 9 month follow-up of.JAMEL BONDS is being seen for a 9 month follow-up of.JAMEL BONDS is being seen for a 9 month follow-up of.JAMEL BONDS is being seen for a 9 month follow-up of.JAMEL BONDS is being seen for follow-up of a hospitalization for. CHRISTOPHE BONDS is being seen for follow-up of a hospitalization for. LUZJAMEL BONDS is being seen for a 9 month follow-up of.JAMEL BONDS is being seen for a 9 month follow-up of. 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) Diffuse large B-cell lymphoma, unspecified body region (HCC) Procedures CT CHEST W IVCON DIAGNOSTIC COMPUTED TOMOGRAPHY THORAX W/CONTRAST Shaheen Diehl MD [address] [place] [address] [place] [address] Ct Imaging Referral ID Status Reason Start Date Expiration Date Visits Requested Visits Authorized [id number] Authorized Auto-Generat ed Referral 2 02/25/2022 1 1 Specialty Diagnoses / Procedures [facility] Referred To Contact CT IMAGING Diagnoses Lower urinary tract symptoms (LUTS) Prostate CA (HCC) 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) Diffuse large B-cell lymphoma, unspecified body region (HCC) Procedures CT ABD/PEL W IVCON CT ABD & PELVIS W/CONTRAST Shaheen Diehl MD [address] [place] [address] [place] [address] Ct Imaging Referral ID Status Reason Start Date Expiration Date Visits Requested Visits Authorized [id number] Authorized Auto-Generat ed Referral 02/25/2022 1 1 Specialty Diagnoses / Procedures Referred By Contac t Referred To Contact Urology Diagnoses Prostate CA (HCC) Procedures CONSULT TO UROLOGY OFFICE/OUTPATIENT [facility] 60-74 MINUTES Shaheen Diehl MD [address] [place] [address] [place] [address] Referral ID Status Reason Start Date Expiration Date Visits Requested Visits Authorized [id number] Authorized PCP Requested Referral 05/10/2022 05/10/2023 1 1 Specialty Diagnoses / Procedures Referred By Contac t Referred To Contact Radiation Oncology Diagnoses Prostate CA (HCC) PSA elevation Procedures RAD/ONC CONSULT OFFICE/OUTPATIENT [facility] 60 MINUTES Shaheen Diehl MD [address] [place] [address] [place] [address] Referral ID Status Reason Start Date Expiration Date Visits Requested Visits Authorized [id number] Authorized PCP Requested Referral 07/07/2023 07/06/2024 1 1 Specialty Diagnoses / Procedures Referred By Contac t Referred To Contact CT IMAGING Diagnoses Lower urinary tract symptoms (LUTS) Prostate CA (HCC) 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) Diffuse large B-cell lymphoma, unspecified body region (HCC) Procedures CT CHEST W IVCON DIAGNOSTIC COMPUTED TOMOGRAPHY THORAX W/CONTRAST Shaheen Diehl MD [address] [place] [address] [place] [address] [place] [address] Referral ID Status Reason Start Date Expiration Date V isits Requested Visits Authorized [id number] Closed Auto-Generate d Referral 01/11/2022 02/25/2022 1 1 Specialty Diagnoses / Procedures Referred By Contac t Referred To Contact CT IMAGING Diagnoses Lower urinary tract symptoms (LUTS) Prostate CA (HCC) 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) Diffuse large B-cell lymphoma, unspecified body region (HCC) Procedures CT ABD/PEL W IVCON CT ABD & PELVIS W/CONTRAST Shaheen Diehl MD [address] [place] [address] [place] [address] [place] [address] Referral ID Status Reason Start Date Expiration Date V isits Requested Visits Authorized [id number] Closed Auto-Generate d Referral 01/11/2022 02/25/2022 1 1 Chief Complaint and Reason for Visit Chief Complaint sss Chief Complaint sss chest pain, dizzy Chief Complaint sss chest pain, dizzy r93.89 Chief Complaint SSS E05.90 Z79.899 Chief Complaint SSS Chief Complaint I73.9 Chief Complaint I73.9 M53.3 M54.50 G89.29 REFF BY AMANDA HEARD Reason for Visit Arthritis of lumbosa cral spine Other chronic pain Sacroiliitis Scoliosis Chief Complaint Admit Date I73.9 November 28, 2023 9:30am M53.3 M54.50 G89.29 January 19, 2024 1 0:20am REFF BY AMANDA HEARD January 28, 2024 3:17pm SSS February 04, 2024 9:09am Reason for Visit Admit Date Arthritis of lumbosacral spine January 28, 2024 3:17pm Other chronic pain January 28, 2024 3 :17pm Sacroiliitis January 28, 2024 3 :17pm Scoliosis January 28, 2024 3 :17pm Chief Complaint Admit Date INCREASED LOW BACK PAIN/UNABLE TO HAVE M RI February 24, 2024 10:25am cough, congestion February 25, 2024 1 1:03am M46.1 March 03, 2024 11:55am bilateral SI joint injection March 042023 10:33am f/u after richard SI joint inj February 11:04am R60.0 I13.0 May 07, 2024 11:30am Reason for Visit Admit Date Arthritis of lumbosacral spine February 24, 2024 10:25am Other chronic pain February 24, 2024 1 0:25am Sacroiliitis February 24, 2024 1 0:25am Scoliosis February 24, 2024 1 0:25am Nasopharyngitis acute February 25, 2024 11:03am Arthritis of lumbosacral spine March 22, 2024 11:04am Other chronic pain March 22, 2024 11:04am Sacroiliitis March 22, 2024 11:04am Scoliosis March 22, 2024 11:04am Chief Complaint Admit Date cough, congestion February 25, 2024 1 1:03am M46.1 March 03, 2024 11:55am bilateral SI joint injection March 042023 10:33am f/u after richard SI joint inj February 11:04am R60.0 I13.0 May 07, 2024 11:30am Back Pain May 25, 2024 10:4 6am Reason for Visit Admit Date Nasopharyngitis acute February 25, 2024 11:03am Arthritis of lumbosacral spine March 22, 2024 11:04am Other chronic pain March 22, 2024 11:04am Sacroiliitis March 22, 2024 11:04am Scoliosis March 22, 2024 11:04am Arthritis of lumbosacral spine May 10:46am Other chronic pain May 25, 2024 10:4 6am Sacroiliitis May 25, 2024 10:4 6am Chief Complaint Admit Date bilateral SI joint injection March 042023 10:33am f/u after richard SI joint inj February 11:04am R60.0 I13.0 May 07, 2024 11:30am Back Pain May 25, 2024 10:4 6am richard L3,4,5 lumbar facet MBB June 01, 2024 12:55pm Reason for Visit Admit Date Arthritis of lumbosacral spine March 22, 2024 11:04am Other chronic pain March 22, 2024 11:04am Sacroiliitis March 22, 2024 11:04am Scoliosis March 22, 2024 11:04am Arthritis of lumbosacral spine May 10:46am Other chronic pain May 25, 2024 10:4 6am Sacroiliitis May 25, 2024 10:4 6am Chief Complaint Admit Date f/u after richard SI joint inj February 11:04am R60.0 I13.0 May 07, 2024 11:30am Back Pain May 25, 2024 10:4 6am richard L3,4,5 lumbar facet MBB June 01, 2024 12:55pm f/u after richard lumbar MBB June 08 9:24am Reason for Visit Admit Date Arthritis of lumbosacral spine March 22, 2024 11:04am Other chronic pain March 22, 2024 11:04am Sacroiliitis March 22, 2024 11:04am Scoliosis March 22, 2024 11:04am Arthritis of lumbosacral spine May 10:46am Other chronic pain May 25, 2024 10:4 6am Sacroiliitis May 25, 2024 10:4 6am Arthritis of lumbosacral spine May 9:24am Other chronic pain June 08, 2024 9:2 4am Sacroiliitis June 08, 2024 9:2 4am Chief Complaint Admit Date f/u after richard SI joint inj February 11:04am R60.0 I13.0 May 07, 2024 11:30am Back Pain May 25, 2024 10:4 6am richard L3,4,5 lumbar facet MBB June 01, 2024 12:55pm f/u after richard lumbar MBB June 08 9:24am *XARELTO*bilateral L3,4,5 lumbar MBB [facility] 2024 2:20pm Chief Complaint Admit Date R60.0 I13.0 May 07, 2024 11:30am Back Pain May 25, 2024 10:4 6am richard L3,4,5 lumbar facet MBB June 01, 2024 12:55pm f/u after richard lumbar MBB June 08 9:24am *XARELTO*bilateral L3,4,5 lumbar MBB [facility] 2024 2:20pm f/u after richard lumbar MBB July 02 11:32am Reason for Visit Admit Date Arthritis of lumbosacral spine May 10:46am Other chronic pain May 25, 2024 10:4 6am Sacroiliitis May 25, 2024 10:4 6am Arthritis of lumbosacral spine May 9:24am Other chronic pain June 08, 2024 9:2 4am Sacroiliitis June 08, 2024 9:2 4am Arthritis of lumbosacral spine June 11:32am Other chronic pain July 02, 2024 11: 32am Sacroiliitis July 02, 2024 11: 32am Chief Complaint Admit Date R60.0 I13.0 May 07, 2024 11:30am Back Pain May 25, 2024 10:4 6am richard L3,4,5 lumbar facet MBB June 01, 2024 12:55pm f/u after richard lumbar MBB June 08 9:24am *XARELTO*bilateral L3,4,5 lumbar MBB May 2024 2:20pm f/u after richard lumbar MBB July 02 11:32am *XARELTO*bilateral L3,4,5 lumbar RFA Apr 2024 2:00pm Chief Complaint Admit Date Back Pain May 25, 2024 10:4 6am richard L3,4,5 lumbar facet MBB June 01, 2024 12:55pm f/u after richard lumbar MBB June 08 9:24am *XARELTO*bilateral L3,4,5 lumbar MBB May 2024 2:20pm f/u after richard lumbar MBB July 02 11:32am *XARELTO*bilateral L3,4,5 lumbar RFA Apr 2024 2:00pm SSS August 03, 2024 10:00 am Chief Complaint Admit Date Back Pain May 25, 2024 10:4 6am richard L3,4,5 lumbar facet MBB June 01, 2024 12:55pm f/u after richard lumbar MBB June 08 9:24am *XARELTO*bilateral L3,4,5 lumbar MBB May 2024 2:20pm f/u after richard lumbar MBB July 02 11:32am *XARELTO*bilateral L3,4,5 lumbar RFA Apr 2024 2:00pm SSS August 03, 2024 10:00 am 2 week f/u after richard lumbar RFA July 10:39am Reason for Visit Admit Date Arthritis of lumbosacral spine May 10:46am Other chronic pain May 25, 2024 10:4 6am Sacroiliitis May 25, 2024 10:4 6am Arthritis of lumbosacral spine May 9:24am Other chronic pain June 08, 2024 9:2 4am Sacroiliitis June 08, 2024 9:2 4am Arthritis of lumbosacral spine June 11:32am Other chronic pain July 02, 2024 11: 32am Sacroiliitis July 02, 2024 11: 32am Arthritis of lumbosacral spine August 04, 2024 10:39am Other chronic pain August 04, 2024 10:39 am Sacroiliitis August 04, 2024 10:39 am Chief Complaint Admit Date f/u after richard lumbar MBB June 08 9:24am *XARELTO*bilateral L3,4,5 lumbar MBB May 2:20pm f/u after richard lumbar MBB July 02 11:32am *XARELTO*bilateral L3,4,5 lumbar RFA Apr 2024 2:00pm SSS August 03, 2024 10:00 am 2 week f/u after richard lumbar RFA July 10:39am 6 week f/u after richard lumbar RFA August 1:51pm Reason for Visit Admit Date Arthritis of lumbosacral spine May 9:24am Other chronic pain June 08, 2024 9:2 4am Sacroiliitis June 08, 2024 9:2 4am Arthritis of lumbosacral spine June 11:32am Other chronic pain July 02, 2024 11: 32am Sacroiliitis July 02, 2024 11: 32am Arthritis of lumbosacral spine August 04, 2024 10:39am Other chronic pain August 04, 2024 10:39 am Sacroiliitis August 04, 2024 10:39 am Arthritis of lumbosacral spine August 1:51pm Other chronic pain September 01, 2024 1:51 pm Sacroiliitis September 01, 2024 1:51 pm Medications Administered Section Inactive Administered Medications - up to 3 most recent administrations Medication Order MAR Action Action Date Dose Rate Site leuprolide 22.5 mg injection (LUPRON DEPOT) 22.5 mg, INTRAMUSCULAR, ONCE, 1 dose, On Fri02/08/22 at 1100, Hazardous Chemotherapy Drug: Use appropriate PPE. Given 02/08/2022 10:58 AM EST 22.5 mg Buttocks, Right Inactive Administered Medications - up to 3 most recent administrations Medication Order MAR Action Action Date Dose Rate Site leuprolide 22.5 mg injection (LUPRON DEPOT) 22.5 mg, INTRAMUSCULAR, ONCE, 1 dose, On Fri05/10/22 at 1100, Hazardous Chemotherapy Drug: Use appropriate PPE. Given 05/10/2022 10:48 AM EST 22.5 mg Buttocks, Left Additional Source Comments (unrecognized sect ion and content) No Status Records FoundNo Status Records FoundNo Status Records FoundNo Status Records FoundNo Status Records FoundNo Status Records FoundNo Status Records FoundNo Status Records FoundNo Status Records Found INFORMATION SOURCE (unrecogn ized section and content) DATE CREATED AUTHOR 04/10/2018 [facility] DATE CREATED AUTHOR AUTHOR'S ORGANIZ ATION 04/19/2019 [facility] DATE CREATED AUTHOR AUTHOR'S ORGANIZ ATION 08/30/2022 [facility] DATE CREATED AUTHOR AUTHOR'S ORGANIZ ATION 09/22/2022 [facility] DATE CREATED AUTHOR AUTHOR'S ORGANIZ ATION 10/19/2022 [employer] DATE CREATED AUTHOR AUTHOR'S ORGANIZ ATION 07/15/2024 [facility] DATE CREATED AUTHOR AUTHOR'S ORGANIZ ATION 08/07/2024 [facility] DATE CREATED AUTHOR AUTHOR'S ORGANIZ ATION 10/01/2024 [facility] DATE CREATED AUTHOR AUTHOR'S ORGANIZ ATION 10/02/2024 [facility] Source Comments (unrecognize d section and content) In the event this informatio n is protected by the Federal Confidentiality of Alcohol and Drug Abuse Patient Records regulations: The Federal rules restrict any use of the information to criminally investigate or prosecute any alcohol or drug abuse patient.[facility] CenterIn the event this information is protected by the Federal Confidentiality of Alcohol and Drug Abuse Patient Records regulations: The Federal rules restrict any use of the information to criminally investigate or prosecute any alcohol or drug abuse patient.[facility] CenterIn the event this information is protected by the Federal Confidentiality of Alcohol and Drug Abuse Patient Records regulations: The Federal rules restrict any use of the information to criminally investigate or prosecute any alcohol or drug abuse patient.[facility] CenterIn the event this information is protected by the Federal Confidentiality of Alcohol and Drug Abuse Patient Records regulations: The Federal rules restrict any use of the information to criminally investigate or prosecute any alcohol or drug abuse patient.[facility] CenterIn the event this information is protected by the Federal Confidentiality of Alcohol and Drug Abuse Patient Records regulations: The Federal rules restrict any use of the information to criminally investigate or prosecute any alcohol or drug abuse patient.[facility] CenterIn the event this information is protected by the Federal Confidentiality of Alcohol and Drug Abuse Patient Records regulations: The Federal rules restrict any use of the information to criminally investigate or prosecute any alcohol or drug abuse patient.[facility] CenterIn the event this information is protected by the Federal Confidentiality of Alcohol and Drug Abuse Patient Records regulations: The Federal rules restrict any use of the information to criminally investigate or prosecute any alcohol or drug abuse patient.[facility] CenterIn the event this information is protected by the Federal Confidentiality of Alcohol and Drug Abuse Patient Records regulations: The Federal rules restrict any use of the information to criminally investigate or prosecute any alcohol or drug abuse patient.[facility] CenterIn the event this information is protected by the Federal Confidentiality of Alcohol and Drug Abuse Patient Records regulations: The Federal rules restrict any use of the information to criminally investigate or prosecute any alcohol or drug abuse patient.[facility] CenterIn the event this information is protected by the Federal Confidentiality of Alcohol and Drug Abuse Patient Records regulations: The Federal rules restrict any use of the information to criminally investigate or prosecute any alcohol or drug abuse patient.[facility] CenterIn the event this information is protected by the Federal Confidentiality of Alcohol and Drug Abuse Patient Records regulations: The Federal rules restrict any use of the information to criminally investigate or prosecute any alcohol or drug abuse patient.[facility] CenterIn the event this information is protected by the Federal Confidentiality of Alcohol and Drug Abuse Patient Records regulations: The Federal rules restrict any use of the information to criminally investigate or prosecute any alcohol or drug abuse patient.[facility] CenterIn the event this information is protected by the Federal Confidentiality of Alcohol and Drug Abuse Patient Records regulations: The Federal rules restrict any use of the information to criminally investigate or prosecute any alcohol or drug abuse patient.[facility] CenterIn the event this information is protected by the Federal Confidentiality of Alcohol and Drug Abuse Patient Records regulations: The Federal rules restrict any use of the information to criminally investigate or prosecute any alcohol or drug abuse patient.[facility] CenterIn the event this information is protected by the Federal Confidentiality of Alcohol and Drug Abuse Patient Records regulations: The Federal rules restrict any use of the information to criminally investigate or prosecute any alcohol or drug abuse patient.[facility] CenterIn the event this information is protected by the Federal Confidentiality of Alcohol and Drug Abuse Patient Records regulations: The Federal rules restrict any use of the information to criminally investigate or prosecute any alcohol or drug abuse patient.[facility] CenterIn the event this information is protected by the Federal Confidentiality of Alcohol and Drug Abuse Patient Records regulations: The Federal rules restrict any use of the information to criminally investigate or prosecute any alcohol or drug abuse patient.[facility] CenterIn the event this information is protected by the Federal Confidentiality of Alcohol and Drug Abuse Patient Records regulations: The Federal rules restrict any use of the information to criminally investigate or prosecute any alcohol or drug abuse patient.[facility] CenterIn the event this information is protected by the Federal Confidentiality of Alcohol and Drug Abuse Patient Records regulations: The Federal rules restrict any use of the information to criminally investigate or prosecute any alcohol or drug abuse patient.[facility] CenterIn the event this information is protected by the Federal Confidentiality of Alcohol and Drug Abuse Patient Records regulations: The Federal rules restrict any use of the information to criminally investigate or prosecute any alcohol or drug abuse patient.[facility] CenterIn the event this information is protected by the Federal Confidentiality of Alcohol and Drug Abuse Patient Records regulations: The Federal rules restrict any use of the information to criminally investigate or prosecute any alcohol or drug abuse patient.[facility] CenterIn the event this information is protected by the Federal Confidentiality of Alcohol and Drug Abuse Patient Records regulations: The Federal rules restrict any use of the information to criminally investigate or prosecute any alcohol or drug abuse patient.[facility] CenterIn the event this information is protected by the Federal Confidentiality of Alcohol and Drug Abuse Patient Records regulations: The Federal rules restrict any use of the information to criminally investigate or prosecute any alcohol or drug abuse patient.[facility] CenterIn the event this information is protected by the Federal Confidentiality of Alcohol and Drug Abuse Patient Records regulations: The Federal rules restrict any use of the information to criminally investigate or prosecute any alcohol or drug abuse patient.[facility] CenterIn the event this information is protected by the Federal Confidentiality of Alcohol and Drug Abuse Patient Records regulations: The Federal rules restrict any use of the information to criminally investigate or prosecute any alcohol or drug abuse patient.[facility] CenterIn the event this information is protected by the Federal Confidentiality of Alcohol and Drug Abuse Patient Records regulations: The Federal rules restrict any use of the information to criminally investigate or prosecute any alcohol or drug abuse patient.[facility] CenterIn the event this information is protected by the Federal Confidentiality of Alcohol and Drug Abuse Patient Records regulations: The Federal rules restrict any use of the information to criminally investigate or prosecute any alcohol or drug abuse patient.[facility] CenterIn the event this information is protected by the Federal Confidentiality of Alcohol and Drug Abuse Patient Records regulations: The Federal rules restrict any use of the information to criminally investigate or prosecute any alcohol or drug abuse patient.[facility] CenterIn the event this information is protected by the Federal Confidentiality of Alcohol and Drug Abuse Patient Records regulations: The Federal rules restrict any use of the information to criminally investigate or prosecute any alcohol or drug abuse patient.[facility] CenterIn the event this information is protected by the Federal Confidentiality of Alcohol and Drug Abuse Patient Records regulations: The Federal rules restrict any use of the information to criminally investigate or prosecute any alcohol or drug abuse patient.[facility] CenterIn the event this information is protected by the Federal Confidentiality of Alcohol and Drug Abuse Patient Records regulations: The Federal rules restrict any use of the information to criminally investigate or prosecute any alcohol or drug abuse patient.[facility] CenterIn the event this information is protected by the Federal Confidentiality of Alcohol and Drug Abuse Patient Records regulations: The Federal rules restrict any use of the information to criminally investigate or prosecute any alcohol or drug abuse patient.[facility] CenterIn the event this information is protected by the Federal Confidentiality of Alcohol and Drug Abuse Patient Records regulations: The Federal rules restrict any use of the information to criminally investigate or prosecute any alcohol or drug abuse patient.[facility] CenterIn the event this information is protected by the Federal Confidentiality of Alcohol and Drug Abuse Patient Records regulations: The Federal rules restrict any use of the information to criminally investigate or prosecute any alcohol or drug abuse patient.[facility] CenterIn the event this information is protected by the Federal Confidentiality of Alcohol and Drug Abuse Patient Records regulations: The Federal rules restrict any use of the information to criminally investigate or prosecute any alcohol or drug abuse patient.[facility] CenterIn the event this information is protected by the Federal Confidentiality of Alcohol and Drug Abuse Patient Records regulations: The Federal rules restrict any use of the information to criminally investigate or prosecute any alcohol or drug abuse patient.[facility] CenterIn the event this information is protected by the Federal Confidentiality of Alcohol and Drug Abuse Patient Records regulations: The Federal rules restrict any use of the information to criminally investigate or prosecute any alcohol or drug abuse patient.[facility] CenterIn the event this information is protected by the Federal Confidentiality of Alcohol and Drug Abuse Patient Records regulations: The Federal rules restrict any use of the information to criminally investigate or prosecute any alcohol or drug abuse patient.[facility] CenterIn the event this information is protected by the Federal Confidentiality of Alcohol and Drug Abuse Patient Records regulations: The Federal rules restrict any use of the information to criminally investigate or prosecute any alcohol or drug abuse patient.[facility] CenterIn the event this information is protected by the Federal Confidentiality of Alcohol and Drug Abuse Patient Records regulations: The Federal rules restrict any use of the information to criminally investigate or prosecute any alcohol or drug abuse patient.[facility] CenterIn the event this information is protected by the Federal Confidentiality of Alcohol and Drug Abuse Patient Records regulations: The Federal rules restrict any use of the information to criminally investigate or prosecute any alcohol or drug abuse patient.[facility] CenterIn the event this information is protected by the Federal Confidentiality of Alcohol and Drug Abuse Patient Records regulations: The Federal rules restrict any use of the information to criminally investigate or prosecute any alcohol or drug abuse patient.[facility] CenterIn the event this information is protected by the Federal Confidentiality of Alcohol and Drug Abuse Patient Records regulations: The Federal rules restrict any use of the information to criminally investigate or prosecute any alcohol or drug abuse patient.[facility] CenterIn the event this information is protected by the Federal Confidentiality of Alcohol and Drug Abuse Patient Records regulations: The Federal rules restrict any use of the information to criminally investigate or prosecute any alcohol or drug abuse patient.[facility] CenterIn the event this information is protected by the Federal Confidentiality of Alcohol and Drug Abuse Patient Records regulations: The Federal rules restrict any use of the information to criminally investigate or prosecute any alcohol or drug abuse patient.[facility] CenterIn the event this information is protected by the Federal Confidentiality of Alcohol and Drug Abuse Patient Records regulations: The Federal rules restrict any use of the information to criminally investigate or prosecute any alcohol or drug abuse patient.[facility] CenterIn the event this information is protected by the Federal Confidentiality of Alcohol and Drug Abuse Patient Records regulations: The Federal rules restrict any use of the information to criminally investigate or prosecute any alcohol or drug abuse patient.[facility] CenterIn the event this information is protected by the Federal Confidentiality of Alcohol and Drug Abuse Patient Records regulations: The Federal rules restrict any use of the information to criminally investigate or prosecute any alcohol or drug abuse patient.[facility] CenterIn the event this information is protected by the Federal Confidentiality of Alcohol and Drug Abuse Patient Records regulations: The Federal rules restrict any use of the information to criminally investigate or prosecute any alcohol or drug abuse patient.[facility] CenterIn the event this information is protected by the Federal Confidentiality of Alcohol and Drug Abuse Patient Records regulations: The Federal rules restrict any use of the information to criminally investigate or prosecute any alcohol or drug abuse patient.[facility] CenterIn the event this information is protected by the Federal Confidentiality of Alcohol and Drug Abuse Patient Records regulations: The Federal rules restrict any use of the information to criminally investigate or prosecute any alcohol or drug abuse patient.[facility] CenterIn the event this information is protected by the Federal Confidentiality of Alcohol and Drug Abuse Patient Records regulations: The Federal rules restrict any use of the information to criminally investigate or prosecute any alcohol or drug abuse patient.[facility] CenterIn the event this information is protected by the Federal Confidentiality of Alcohol and Drug Abuse Patient Records regulations: The Federal rules restrict any use of the information to criminally investigate or prosecute any alcohol or drug abuse patient.[facility] CenterIn the event this information is protected by the Federal Confidentiality of Alcohol and Drug Abuse Patient Records regulations: The Federal rules restrict any use of the information to criminally investigate or prosecute any alcohol or drug abuse patient.[facility] CenterIn the event this information is protected by the Federal Confidentiality of Alcohol and Drug Abuse Patient Records regulations: The Federal rules restrict any use of the information to criminally investigate or prosecute any alcohol or drug abuse patient.[facility] CenterIn the event this information is protected by the Federal Confidentiality of Alcohol and Drug Abuse Patient Records regulations: The Federal rules restrict any use of the information to criminally investigate or prosecute any alcohol or drug abuse patient.[facility] CenterIn the event this information is protected by the Federal Confidentiality of Alcohol and Drug Abuse Patient Records regulations: The Federal rules restrict any use of the information to criminally investigate or prosecute any alcohol or drug abuse patient.[facility] CenterIn the event this information is protected by the Federal Confidentiality of Alcohol and Drug Abuse Patient Records regulations: The Federal rules restrict any use of the information to criminally investigate or prosecute any alcohol or drug abuse patient.[facility] CenterIn the event this information is protected by the Federal Confidentiality of Alcohol and Drug Abuse Patient Records regulations: The Federal rules restrict any use of the information to criminally investigate or prosecute any alcohol or drug abuse patient.[facility] CenterIn the event this information is protected by the Federal Confidentiality of Alcohol and Drug Abuse Patient Records regulations: The Federal rules restrict any use of the information to criminally investigate or prosecute any alcohol or drug abuse patient.[facility] CenterIn the event this information is protected by the Federal Confidentiality of Alcohol and Drug Abuse Patient Records regulations: The Federal rules restrict any use of the information to criminally investigate or prosecute any alcohol or drug abuse patient.[facility] CenterIn the event this information is protected by the Federal Confidentiality of Alcohol and Drug Abuse Patient Records regulations: The Federal rules restrict any use of the information to criminally investigate or prosecute any alcohol or drug abuse patient.[facility] CenterIn the event this information is protected by the Federal Confidentiality of Alcohol and Drug Abuse Patient Records regulations: The Federal rules restrict any use of the information to criminally investigate or prosecute any alcohol or drug abuse patient.[facility] CenterIn the event this information is protected by the Federal Confidentiality of Alcohol and Drug Abuse Patient Records regulations: The Federal rules restrict any use of the information to criminally investigate or prosecute any alcohol or drug abuse patient.[facility] CenterIn the event this information is protected by the Federal Confidentiality of Alcohol and Drug Abuse Patient Records regulations: The Federal rules restrict any use of the information to criminally investigate or prosecute any alcohol or drug abuse patient.[facility] CenterIn the event this information is protected by the Federal Confidentiality of Alcohol and Drug Abuse Patient Records regulations: The Federal rules restrict any use of the information to criminally investigate or prosecute any alcohol or drug abuse patient.[facility] CenterIn the event this information is protected by the Federal Confidentiality of Alcohol and Drug Abuse Patient Records regulations: The Federal rules restrict any use of the information to criminally investigate or prosecute any alcohol or drug abuse patient.[facility] Reason for Visit (unrecogniz ed section and content) Reason Comments Prostate Cancer Specialty Diagnoses / Procedures Referred By Contac t Referred To Contact Urology Diagnoses Prostate CA (HCC) Procedures CONSULT TO UROLOGY OFFICE/OUTPATIENT NEW HIGH MDM 60-74 MINUTES Shaheen Diehl MD [address] [place] [address] [place] [address] Referral ID Status Reason Start Date Expiration Date V isits Requested Visits Authorized [id number] Closed PCP Requested Referral 05/10/2022 05/10/2023 1 1 Reason Comments Diabetes Reason Onset Date Comments Refill Request 08/06/2021 Reason Comments Diabetes Reason Comments Prostate Cancer Specialty Diagnoses / Procedures Referred By Contac t Referred To Contact Diagnoses Prostate CA (HCC) PSA elevation Shaheen Diehl MD [address] [place] [address] [place] [address] [facility] [address] [place] [address] Referral ID Status Reason Start Date Expiration Date V isits Requested Visits Authorized [id number] Authorized 01/25/2022 04/25/2022 99 99 Reason Onset Date Comments Refill Request 02/25/2022 Reason Comments Refill Request Reason Comments Epiretinal membrane, bilateral 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 Reason Comments Prostate Cancer Reason Comments Results Reason Comments Patient Update Reason Onset Date Comments Refill Request 06/05/2022 Reason Onset Date Comments Refill Request 06/25/2022 Reason Comments Forms Reason Comments Prostate Cancer 3 month follow up Reason Comments Lab Orders Reason Onset Date Comments Opened In Error 12/03/2022 Valid prescripti on at pharmacy Reason Onset Date Comments Refill Request 12/09/2022 Reason Comments Nm Pet Request Reason Onset Date Comments Refill Request 06/23/2023 Referral ID Status Reason Start Date Expiration Date V isits Requested Visits Authorized [id number] Authorized 07/07/2023 10/05/2023 99 99 Reason Comments Prostate Cancer New patient consult Reason Comments Insurance Authorization Reason Comments Patient Question Labs Reason Comments Follow Up Reason Comments Radiology NM Specialty Diagnoses / Procedures Referred By Contac t Referred To Contact MOLECULAR & FUNCTIONAL IMAGING Diagnoses Prostate CA (HCC) PSA elevation Procedures NM PET/CT PROSTATE WHOLE BODY IMAGING PET IMAGING CT ATTENUATION SKULL BASE MID-THIGH Shaheen Diehl MD [address] [place] [address] [place] [address] Molecular & Functional Imaging [address] [place] [address] Referral ID Status Reason Start Date Expiration Date V isits Requested Visits Authorized [id number] Closed Auto-Generate d Referral 05/31/2023 06/29/2024 1 1 Reason Onset Date Comments Refill Request 12/03/[address] Specialty Diagnoses / Procedures Referred By Contac t Referred To Contact CT IMAGING Diagnoses Lower urinary tract symptoms (LUTS) Prostate CA (HCC) 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) Diffuse large B-cell lymphoma, unspecified body region (HCC) Procedures CT CHEST W IVCON DIAGNOSTIC COMPUTED TOMOGRAPHY THORAX W/CONTRAST Shaheen Diehl MD [address] [place] [address] [place] [address] [facility] [place] [address] Referral ID Status Reason Start Date Expiration Date V isits Requested Visits Authorized [id number] Closed Auto-Generate d Referral 01/11/2022 02/25/2022 1 1 Reason Comments Follow-up 6 month Specialty Diagnoses / Procedures Referred By Contac t Referred To Contact Cardiology Diagnoses Sick sinus syndrome (Multi) Procedures Follow Up In Cardiology Sean Franklin MD Retired From Practice Referral ID Status Reason Start Date Expiration Date V isits Requested Visits Authorized [id number] Authorized 05/19/2023 05/18/2024 1 1 Reason Comments Cerumen Impaction Reason Comments Pain Reason Onset Date Comments Xrays 01/23/2024 Reason Onset Date Comments Refill Request 01/24/2024 Reason Comments Diabetes Reason Comments Forms Drug [place] - Reason Comments Future Appointment Reason Comments Sinus Problem Reason Onset Date Comments Med Refill 06/04/2023 Reason Comments MAW Reason Comments Med Refill Reason Comments High Blood Sugar Reason Comments Cerumen Impaction Clean ears Reason Onset Date Comments Refill Request 07/18/2024 Reason Comments 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 Reason Comments Follow-up 9 months Sick sinus syndrome (Multi) Specialty Diagnoses / Procedures Referred By Contac t Referred To Contact Cardiology Diagnoses Sick sinus syndrome (Multi) Procedures Follow Up In Cardiology David Jackson MD [address] [place] [address], [address] [address] Phone: tel: fax: David Jackson MD [address] [place] [address] 2, [address] [address] Phone: tel: fax: Referral ID Status Reason Start Date Expiration Date V isits Requested Visits Authorized [id number] Authorized 12/24/2023 12/23/2024 1 1 Care Teams (unrecognized sec tion and content) Team Status: Active Member Role Status Dates Yariel Villanueva DO Primary Care Provider Active Team Status: Inactive Member Role Status Dates Yariel Villanueva DO Primary Care Provider Active Sean Franklin MD Attending Provider Active Anatomy Teacher Relationship Specialty Start Date End Date Yariel Villanueva [address] [place] [address] PCP - General 07/04/00 Deanna Gabriel MD, PhD [address] [place] [address] Physician Endocrinology 02/09/18 Wilder Mackey MD Primary Staff Physician Cardiology 06/09/18 Anatomy Teacher Relationship Specialty Start Date End Date Yariel Villanueva DO [address] [place] [address] PCP - General 07/04/00 Deanna Gabriel MD, PhD [address] [place] [address] Physician Endocrinology 02/09/18 Wilder Mackey MD Primary Staff Physician Cardiology 06/09/18 Team Status: Inactive Member Role Status Dates Yariel Villanueva , DO Primary Care Provider Active Atif Ta , DO Emergency Provider Active Team Status: Inactive Member Role Status Dates Yariel Villanueva , DO Primary Care Provider Active SANDHYA MahoneyP Attending Provider Active Anatomy Teacher Relationship Specialty Start Date End Date Yariel Villanueva, DO [address] [place] [address] PCP - General 07/04/00 Deanna Gabriel MD, PhD [address] [place] [address] Physician Endocrinology 02/09/18 Wilder Mackey MD Primary Staff Physician Cardiology 06/09/18 Anatomy Teacher Relationship Specialty Start Date End Date Yariel Villanueva DO [address] [place] [address] PCP - General 07/04/00 Deanna Gabriel MD, PhD [address] [place] [address] Physician Endocrinology 02/09/18 Wilder Mackey MD Primary Staff Physician Cardiology 06/09/18 Anatomy Teacher Relationship Specialty Start Date End Date Yariel Villanueva, DO [address] [place] [address] PCP - General 07/04/00 Deanna Gabriel MD, PhD [address] [place] [address] Physician Endocrinology 02/09/18 Wilder Mackey MD Primary Staff Physician Cardiology 06/09/18 Anatomy Teacher Relationship Specialty Start Date End Date Yariel Villanueva, DO [address] [place] [address] PCP - General 07/04/00 Deanna Gabriel MD, PhD [address] [place] [address] Physician Endocrinology 02/09/18 Wilder Mackey MD Primary Staff Physician Cardiology 06/09/18 Anatomy Teacher Relationship Specialty Start Date End Date Yariel Villanueva, DO [address] [place] [address] PCP - General 07/04/00 Deanna Gabriel MD, PhD [address] [place] [address] Physician Endocrinology 02/09/18 Wilder Mackey MD Primary Staff Physician Cardiology 06/09/18 Anatomy Teacher Relationship Specialty Start Date End Date Yariel Villanueva, DO [address] [address] PCP - General 07/04/00 Deanna Gabriel MD, PhD [address] [place] [address] Physician Endocrinology 02/09/18 Wilder Mackey MD [address] [place] [address] Primary Staff Physician Cardiology 06/09/18 Anatomy Teacher Relationship Specialty Start Date End Date Yariel Villanueva, [address] [place] [address] PCP - General 07/04/00 Deanna Gabriel MD, PhD [address] [place] [address] Physician Endocrinology 02/09/18 Wilder Mackey MD [address] [place] [address] Primary Staff Physician Cardiology 06/09/18 Team Status: Inactive Member Role Status Dates Yariel Mcyelitza , DO Primary Care Provider Active Bennie Renae , DO Emergency Provider Active Kevin Phillips MD Admit Provider, Attending Provider Active Eugene Burger MD Other Provider Active Team Status: Active Member Role Status Dates Yariel Mcyelitza , DO Primary Care Provider Active Kenny Pittman MD Emergency Provider Active Mikal Terry , DO Admit Provider, Attending Provider Active Team Status: Inactive Member Role Status Dates Yariel Mcyelitza , DO Primary Care Provider Active Kenny Pittman MD Emergency Provider Active Mikal Terry , DO Admit Provider Active Aline Pierre MD Attending Provider Active Angeles Durán Other Provider Active Tamy uEgene , DO Other Provider Active Magdaleno Vazquez MD Other Provider Active Yan Peralta , DO Other Provider Active Katy Jerry , ANP-BC Other Provider Active Simeon Godinez , DO Other Provider Active Peri M Gillmor , PROCESS MANAGER Other Provider Active TATIANA MultaniC Other Provider Active Anatomy Teacher Relationship Specialty Start Date End Date Yariel Villanueva, DO [address] [place] [address] PCP - General 07/04/00 Deanna Gabriel MD, PhD [address] [place] [address] Physician Endocrinology 02/09/18 Wilder Mackey MD [address] [place] [address] Primary Staff Physician Cardiology 06/09/18 Anatomy Teacher Relationship Specialty Start Date End Date Yariel Villanueva, DO [address] [place] [address] PCP - General 07/04/00 Deanna Gabriel MD, PhD [address] [place] [address] Physician Endocrinology 02/09/18 Wilder Mackey MD [address] [place] [address] Primary Staff Physician Cardiology 06/09/18 Anatomy Teacher Relationship Specialty Start Date End Date Yariel Villanueva, DO [address] [address] PCP - General 07/04/00 Deanna Gabriel MD, PhD [address] [place] [address] Physician Endocrinology 02/09/18 Wilder Mackey MD [address] [place] [address] Primary Staff Physician Cardiology 06/09/18 Anatomy Teacher Relationship Specialty Start Date End Date Yariel Villanueva, DO [address] [place] [address] PCP - General 07/04/00 Deanna Gabriel MD, PhD [address] [place] [address] Physician Endocrinology 02/09/18 Wilder Mackey MD [address] [place] [address] Primary Staff Physician Cardiology 06/09/18 Anatomy Teacher Relationship Specialty Start Date End Date Yariel Villanueva, DO [address] [place] [address] PCP - General 07/04/00 Deanna Gabriel MD, PhD [address] [place] [address] Physician Endocrinology 02/09/18 Wilder Mackey MD [address] [place] [address] Primary Staff Physician Cardiology 06/09/18 Anatomy Teacher Relationship Specialty Start Date End Date Yariel Villanueva, DO [address] [place] [address] PCP - General 07/04/00 Deanna Gabriel MD, PhD [address] [place] [address] Physician Endocrinology 02/09/18 Wilder Mackey MD [address] [place] [address] Primary Staff Physician Cardiology 06/09/18 Anatomy Teacher Relationship Specialty Start Date End Date Yariel Villanueva, DO [address] [address] PCP - General 07/04/00 Deanna Gabriel MD, PhD [address] [place] [address] Physician Endocrinology 02/09/18 Wilder Mackey MD [address] [place] [address] Primary Staff Physician Cardiology 06/09/18 Anatomy Teacher Relationship Specialty Start Date End Date [place] Yariel RandolphDO [address] [place] [address] PCP - General 07/04/00 Deanna Gabriel MD, PhD [address] [place] [address] Physician Endocrinology 02/09/18 Wilder Mackey MD [address] [place] [address] Primary Staff Physician Cardiology 06/09/18 Anatomy Teacher Relationship Specialty Start Date End Date [facility] RandolphDO [address] [place] [address] PCP - General 07/04/00 Deanna Gabriel MD, PhD [address] [place] [address] Physician Endocrinology 02/09/18 Wilder Mackey MD [address] [place] [address] Primary Staff Physician Cardiology 06/09/18 Anatomy Teacher Relationship Specialty Start Date End Date Yariel Villanueva DO [address] [place] [address] PCP - General 07/04/00 Deanna Gabriel MD, PhD [address] [facility] [place] [address] Physician Endocrinology 02/09/18 Wilder Mackey MD [address] [place] [address] Primary Staff Physician Cardiology 06/09/18 Anatomy Teacher Relationship Specialty Start Date End Date Yariel Villanueva DO [address] [place] [address] PCP - General 07/04/00 Deanna Gabriel MD, PhD [address] [place] [address] Physician Endocrinology 02/09/18 Wilder Mackey MD [address] [place] [address] Primary Staff Physician Cardiology 06/09/18 Anatomy Teacher Relationship Specialty Start Date End Date Yariel Villanueva DO [address] [place] [address] PCP - General 07/04/00 Deanna Gabriel MD, PhD [address] [facility] [address] Physician Endocrinology 02/09/18 Wilder Mackey MD [address] [place] [address] Primary Staff Physician Cardiology 06/09/18 Anatomy Teacher Relationship Specialty Start Date End Date McYariel torre [address] [place] [address] PCP - General 07/04/00 Deanna Gabriel MD, PhD [address] [place] [address] Physician Endocrinology 02/09/18 Wilder Mackey MD [address] [place] [address] Primary Staff Physician Cardiology 06/09/18 Anatomy Teacher Relationship Specialty Start Date End Date Dennis Villanuevajason RandolphDO [address] [place] [address] PCP - General 07/04/00 Deanna Gabriel MD, PhD [address] [place] [address] Physician Endocrinology 02/09/18 Wilder Mackey MD [address] [place] [address] Primary Staff Physician Cardiology 06/09/18 Anatomy Teacher Relationship Specialty Start Date End Date Yariel Villanueva DO [address] [place] [address] PCP - General 07/04/00 Deanna Gabriel MD, PhD [address] [place] [address] Physician Endocrinology 02/09/18 Wilder Mackey MD [address] [place] [address] Primary Staff Physician Cardiology 06/09/18 Anatomy Teacher Relationship Specialty Start Date End Date Kay Yariel RandolphDO [address] [address] PCP - General 07/04/00 Deanna Gabriel MD, PhD [address] [place] [address] Physician Endocrinology 02/09/18 Wilder Mackey MD [address] [place] [address] Primary Staff Physician Cardiology 06/09/18 Anatomy Teacher Relationship Specialty Start Date End Date Mcraphael Yariel RandolphDO [address] [place] [address] PCP - General 07/04/00 Deanna Gabriel MD, PhD [address] [place] [address] Physician Endocrinology 02/09/18 Wilder Mackey MD [address] [place] [address] Primary Staff Physician Cardiology 06/09/18 Anatomy Teacher Relationship Specialty Start Date End Date McdavidYariel limDO [address] [place] [address] PCP - General 07/04/00 Deanna Gabriel MD, PhD [address] [place] [address] Physician Endocrinology 02/09/18 Wilder Mackey MD [address] [place] [address] Primary Staff Physician Cardiology 06/09/18 Anatomy Teacher Relationship Specialty Start Date End Date Yariel Villanueva DO [address] [place] [address] PCP - General 07/04/00 Deanna Gabriel MD, PhD [address] [place] [address] Physician Endocrinology 02/09/18 Wilder Mackey MD [address] [place] [address] Primary Staff Physician Cardiology 06/09/18 Anatomy Teacher Relationship Specialty Start Date End Date Yariel Villanueva DO [address] [address] PCP - General 07/04/00 Deanna Gabriel MD, PhD [address] [place] [address] Physician Endocrinology 02/09/18 Wilder Mackey MD [address] [place] [address] Primary Staff Physician Cardiology 06/09/18 Team Status: Inactive Member Role Status Dates Yariel Villanueva DO Primary Care Provider Active Start: November 28, 2023 End: November 28, 2023 Khoa Pittman DPM Attending Provider Active Start: November 28, 2023 End: November 28, 2023 Anatomy Teacher Relationship Specialty Start Date End Date McdavidYariel lim [address] [place] [address] PCP - General 07/04/00 Deanna Gabriel MD, PhD [address] [place] [address] Physician Endocrinology 02/09/18 Wilder Mackey MD [address] [place] [address] Primary Staff Physician Cardiology 06/09/18 Anatomy Teacher Relationship Specialty Start Date End Date Yariel Villanueva DO [address] [place] [address] PCP - General 07/04/00 Deanna Gabriel MD, PhD [address] [place] [address] Physician Endocrinology 02/09/18 Wilder Mackey MD [address] [place] [address] Primary Staff Physician Cardiology 06/09/18 Anatomy Teacher Relationship Specialty Start Date End Date Yariel Villanueva DO [address] [place] [address] PCP - General 06/20/10 Anatomy Teacher Relationship Specialty Start Date End Date Yariel Villanueva DO [address] [place] [address] PCP - General 07/04/00 Deanna Gabriel MD, PhD [address] [place] [address] Physician Endocrinology 02/09/18 Wilder Mackey MD [address] [place] [address] Primary Staff Physician Cardiology 06/09/18 Anatomy Teacher Relationship Specialty Start Date End Date Yariel Villanueva DO [address] [place] [address] PCP - General 07/04/00 Deanna Gabriel MD, PhD [address] [place] [address] Physician Endocrinology 02/09/18 Wilder Mackey MD [address] [place] [address] Primary Staff Physician Cardiology 06/09/18 Anatomy Teacher Relationship Specialty Start Date End Date Yariel Villanueva MD [address] [place] [address] PCP - General Family Medicine 09/04/22 Anatomy Teacher Relationship Specialty Start Date End Date Yariel Villanueva MD [address] [place] [address] PCP - General Family Medicine 09/04/22 Anatomy Teacher Relationship Specialty Start Date End Date Yariel Villanueva MD [address], [place] [address] PCP - General Family Medicine 09/04/22 Team Status: Inactive Member Role Status Dates Yariel Villanueva DO Primary Care Provider Active Start: January 19, 2024 End: January 19, 2024 Amanda Heard PA-C Attending Provider Active S tart: January 19, 2024 End: January 19, 2024 Anatomy Teacher Relationship Specialty Start Date End Date Yariel Villanueva MD [address] [place] [address] PCP - General Family Medicine 09/04/22 Anatomy Teacher Relationship Specialty Start Date End Date Yariel Villanueva DO [address] [place] [address] PCP - General 07/04/00 Deanna Gabriel MD, PhD [address] [place] [address] Physician Endocrinology 02/09/18 Wilder Mackey MD [address] [place] [address] Primary Staff Physician Cardiology 06/09/18 Team Status: Inactive Member Role Status Dates Yariel Villanueva DO Primary Care Provider Active Start: January 28, 2024 End: January 28, 2024 Lila Ervin MD Attending Provider Active Sta rt: January 28, 2024 End: January 28, 2024 Amanda Heard PA-C Referring Provider Active S tart: January 28, 2024 End: January 28, 2024 Team Status: Active Member Role Status Dates Yariel Villanueva DO Primary Care Provider Active Start: February 04, 2024 Sean Franklin MD Other Provider Active Start: February 04, 2024 Brittanie Engel MD Attending Provider Active Start: February 04, 2024 Anatomy Teacher Relationship Specialty Start Date End Date Yariel Villanueva MD [address], [place] [address] PCP - General Family Medicine 09/04/22 Anatomy Teacher Relationship Specialty Start Date End Date Yariel Villanueva DO [address] [place] [address] PCP - General 07/04/00 Deanna Gabriel MD, PhD [address] [place] [address] Physician Endocrinology 02/09/18 Wilder Mackey MD [address] [place] [address] Primary Staff Physician Cardiology 06/09/18 Anatomy Teacher Relationship Specialty Start Date End Date Yariel Villanueva MD [address] [place] [address] PCP - General Family Medicine 09/04/22 Anatomy Teacher Relationship Specialty Start Date End Date Yariel Villanueva MD [address], [place] [address] PCP - General Family Medicine 09/04/22 Anatomy Teacher Relationship Specialty Start Date End Date Yariel Villanueva MD [address] [place] [address] PCP - General Family Medicine 09/04/22 Anatomy Teacher Relationship Specialty Start Date End Date Yariel Villanueva DO [address] [facility] [place] [address] PCP - General 07/04/00 Deanna Gabriel MD, PhD [address] [place] [address] Physician Endocrinology 02/09/18 Wilder Mackey MD [address] [place] [address] Primary Staff Physician Cardiology 06/09/18 Anatomy Teacher Relationship Specialty Start Date End Date cMyelitza Yariel Shayy [address] [facility] [place] [address] PCP - General Family Medicine 03/11/22 Team Status: Inactive Member Role Status Dates Yariel Villanueva DO Primary Care Provider Active Start: February 24, 2024 End: February 24, 2024 Lila Ervin MD Attending Provider Active Sta rt: February 24, 2024 End: February 24, 2024 Team Status: Inactive Member Role Status Dates Yariel McDO yelitza Primary Care Provider Active Start: February 25, 2024 End: February 25, 2024 Yvonne Ren APRN Attending Provider Active S tart: February 25, 2024 End: February 25, 2024 Team Status: Inactive Member Role Status Dates Yariel Villanueva DO Primary Care Provider Active Start: March 03, 2024 End: March 03, 2024 Lila Ervin MD Attending Provider Active Sta rt: March 03, 2024 End: March 03, 2024 Team Status: Inactive Member Role Status Dates Yariel Villanueva DO Primary Care Provider Active Start: March 04, 2024 End: March 04, 2024 Lila Ervin MD Attending Provider Active Sta rt: March 04, 2024 End: March 04, 2024 Team Status: Active Member Role Status Dates Yariel Villanueva DO Primary Care Provider Active Start: March 04, 2024 Lila Ervin MD Attending Provider Active Sta rt: March 04, 2024 Team Status: Inactive Member Role Status Dates Yariel Villanueva DO Primary Care Provider Active Start: March 22, 2024 End: March 22, 2024 Lila Ervin MD Attending Provider Active Sta rt: March 22, 2024 End: March 22, 2024 Team Status: Inactive Member Role Status Dates Yariel Villanueva DO Primary Care Provider Active Start: May 07, 2024 End: May 07, 2024 David Jackson MD Attending Provider Active Start: May 07, 2024 End: May 07, 2024 Anatomy Teacher Relationship Specialty Start Date End Date McyelitzaYariel [address] [place] [address] PCP - General Family Medicine 03/11/22 Anatomy Teacher Relationship Specialty Start Date End Date McyelitzaDennisYariel Shayy [address] [place] [address] PCP - General Family Medicine 03/11/22 Anatomy Teacher Relationship Specialty Start Date End Date Yariel Villanueva [address] [place] [address] PCP - General Family Medicine 03/11/22 Anatomy Teacher Relationship Specialty Start Date End Date McdavidYariel lim [address] [place] [address] PCP - General Family Medicine 03/11/22 Sabrina Haq LPN [facility] Nurse - [facility] 11/18/23 Team Status: Inactive Member Role Status Dates Yariel Villanueva DO Primary Care Provider Active Start: May 25, 2024 End: May 25, 2024 Lila Ervin MD Attending Provider Active Sta rt: May 25, 2024 End: May 25, 2024 Team Status: Inactive Member Role Status Dates Yariel Villanueva DO Primary Care Provider Active Start: June 01, 2024 End: June 01, 2024 Lila Ervin MD Attending Provider Active Sta rt: June 01, 2024 End: June 01, 2024 Team Status: Active Member Role Status Dates Yariel Villanueva DO Primary Care Provider Active Start: June 01, 2024 Lila Ervin MD Attending Provider Active Sta rt: June 01, 2024 Team Status: Inactive Member Role Status Dates Yariel Villanueva DO Primary Care Provider Active Start: June 08, 2024 End: June 08, 2024 Lila Ervin MD Attending Provider Active Sta rt: June 08, 2024 End: June 08, 2024 Team Status: Inactive Member Role Status Dates Yariel Villanueva DO Primary Care Provider Active Start: June 15, 2024 End: June 15, 2024 Lila Ervin MD Attending Provider Active Sta rt: June 15, 2024 End: June 15, 2024 Anatomy Teacher Relationship Specialty Start Date End Date Yariel Villanueva DO [address] [place] [address] PCP - General 07/04/00 Deanna Gabriel MD, PhD [address] [place] [address] Physician Endocrinology 02/09/18 Wilder Mackey MD [address] [place] [address] Primary Staff Physician Cardiology 06/09/18 Anatomy Teacher Relationship Specialty Start Date End Date Yariel Villanueva DO [address] [place] [address] PCP - General 07/04/00 Deanna Gabriel MD, PhD [address] [place] [address] Physician Endocrinology 02/09/18 Wilder Mackey MD [address] [facility] [place] [address] Primary Staff Physician Cardiology 06/09/18 Team Status: Active Member Role Status Dates Yariel Villanueva DO Primary Care Provider Active Start: June 15, 2024 Lila Ervin MD Attending Provider Active Sta rt: June 15, 2024 Team Status: Inactive Member Role Status Dates Yariel Villanueva DO Primary Care Provider Active Start: July 02, 2024 End: July 02, 2024 Lila Ervin MD Attending Provider Active Sta rt: July 02, 2024 End: July 02, 2024 Anatomy Teacher Relationship Specialty Start Date End Date Yariel Villanueva MD [address] [place] [address] PCP - General Family Medicine 07/08/24 Anatomy Teacher Relationship Specialty Start Date End Date Yariel Villanueva MD [address], [place] [address] PCP - General Family Medicine 07/08/24 Team Status: Inactive Member Role Status Dates Yariel Villanueva DO Primary Care Provider Active Start: July 15, 2024 End: July 15, 2024 Lila Ervin MD Attending Provider Active Sta rt: July 15, 2024 End: July 15, 2024 Anatomy Teacher Relationship Specialty Start Date End Date Yariel Villanueva DO [address] [place] [address] PCP - General 07/04/00 Deanna Gabriel MD, PhD [address] [place] [address] Physician Endocrinology 02/09/18 Wilder Mackey MD [address] [place] [address] Primary Staff Physician Cardiology 06/09/18 Team Status: Active Member Role Status Dates Yariel Villanueva DO Primary Care Provider Active Start: July 15, 2024 Lila Ervin MD Attending Provider Active Sta rt: July 15, 2024 Team Status: Inactive Member Role Status Dates Yariel Villanueva DO Primary Care Provider Active Start: August 03, 2024 End: August 03, 2024 David Jackson MD Attending Provid er, Referring Provider Active Start: August 03, 2024 End: August 03, 2024 Team Status: Active Member Role Status Dates Yariel Villanueva DO Primary Care Provider Active Start: August 03, 2024 David Jackson MD Referring Provid er, Other Provider Active Start: August 03, 2024 Brittanie Engel MD Attending Provider Active Start: August 03, 2024 Team Status: Inactive Member Role Status Dates Yariel Villanueva DO Primary Care Provider Active Start: August 04, 2024 End: August 04, 2024 Praveena Padilla NP Attending Provider Active Start: August 04, 2024 End: August 04, 2024 Team Status: Inactive Member Role Status Dates Yariel Villanueva DO Primary Care Provider Active Start: September 01, 2024 End: September 01, 2024 Praveena Padilla NP Active Start: September 01, 2024 End: September 01, 2024 Lila Ervin MD Attending Provider Active Sta rt: September 01, 2024 End: September 01, 2024 Anatomy Teacher Relationship Specialty Start Date End Date Yariel Villanueva DO [address] [facility] [place] [address] PCP - General 07/04/00 Deanna Gabriel MD, PhD [address] [place] [address] Physician Endocrinology 02/09/18 Wilder Mackey MD [address] [place] [address] Primary Staff Physician Cardiology 06/09/18 Anatomy Teacher Relationship Specialty Start Date End Date Yariel Villanueva DO [address] [facility], [place] [address] PCP - General Family Medicine 09/14/24 Goals (unrecognized section and content) Goals may be documented in a n alternate sectionGoals may be documented in an alternate sectionGoals may be documented in an alternate sectionGoals may be documented in an alternate sectionGoals may be documented in an alternate sectionGoals may be documented in an alternate sectionGoals may be documented in an alternate sectionGoals may be documented in an alternate sectionGoals may be documented in an alternate sectionNot on filedocumented as of this encounterGoals may be documented in an alternate sectionNot on filedocumented as of this encounterNot on filedocumented as of this encounterNot on filedocumented as of this encounterNot on filedocumented as of this encounterNot on filedocumented as of this encounterNot on filedocumented as of this encounterGoals may be documented in an alternate sectionGoals may be documented in an alternate sectionGoals may be documented in an alternate sectionGoals may be documented in an alternate sectionGoals may be documented in an alternate sectionGoals may be documented in an alternate sectionGoals may be documented in an alternate sectionGoals may be documented in an alternate sectionGoals may be documented in an alternate section Inactive Administered Medications - up to 3 most recent administrations Administered Medications (un recognized section and content) Medication Order MAR Action Action Date Dose Rate Site leuprolide acetate (6 month) 45 mg IM syringe kit (LUPRON) 45 mg, INTRAMUSCULAR, ONCE, 1 dose, On Fri07/07/23 at 1600, Hazardous Chemotherapy Drug: Use appropriate PPE. Given 07/07/2023 3:52 PM EDT 45 mg Buttocks, Right FOR RECORDS PERTAINING TO PATIENTS WHO ARE OR HAVE BEEN ENROLLED IN A CHEMICAL DEPENDENCY/SUBSTANCEABUSE PROGRAM, SOME INFORMATION MAY BE OMITTED. This clinical summary was aggregated from multiple sources. Caution should be exercised in using it in the provision of clinical care. This summary normalizes information from multiple sources, and as a consequence, information in this document may materially change the coding, format and clinical context of patient data. In addition, data may be omitted in some cases. CLINICAL DECISIONS SHOULD BE BASED ON THE PRIMARY CLINICAL RECORDS. [facility]. provides no warranty or guarantee of the accuracy or completeness of information in this document.
--- NOTE | 2024-10-03 11:07 | ECG_ITS ---
The [facility] Test Date: 2024-10-03 Pat Name: JAMEL BONDS Department: Room: - Gender: Male [employer]: : 1935 Requested By: [id number] Order Number: [id number] Reading MD: MARVIN LAZAR Measurements Intervals [place] Rate: 58 P: -[id number] NM: -[id number] QRS: -71 QRSD: 184 T: 108 QT: 474 QTc: 471 Interpretive Statements Ventricular paced rhythm Underlying rhythm appears to be atrial fibrillation 9150 abnormal ECG Compared to ECG 06/19/2024 15:54:23 Atrial fibrillation has replaced atrial flutter Electronically Signed On 10-05-2024 16:28:09 EDT by MARVIN LAZAR
--- NOTE | 2024-10-03 11:07 | XR_ITS ---
The [address] [address] Patient Name: JAMEL BONDS MRN: [id number] date: 1935 Sex: M Assigned Patient Location: ED.MAIN Current Patient Location: ED.MAIN Accession/Order Number: [id number] Exam Date: 10/03/2024 11:43 Report Date: 10/03/2024 11:45 At the request of: LUIS CARLOS GONZALEZ MD Procedure: XR chest 1V XR chest 1V 10/03/2024 11:27 AM SIGNS AND SYMPTOMS: Chest pain PROTOCOL: Frontal radiograph of the chest COMPARISON: 06/19/2024 FINDINGS: The trachea is midline. There is a dual lead pacer device on the left. Atherosclerotic changes are noted in the thoracic aorta. Yelrty-g-Pwyw is present on the right. There is cardiomegaly. This is unchanged. The lung parenchyma is clear. The bony thorax is intact. XR/XR chest 1V IMPRESSION: No acute cardiopulmonary pathology. Similar cardiomegaly. Impression dictated by: Tk Rebolledo M.D. 10/03/2024 11:45 AM Dictation Location: [place] [address] Electronically authenticated by: [id number] Y Date: 10/03/2024 11:45
[2024-10-03 11:37] LABS: Hematocrit 33.7 % (42.0-54.0); Hemoglobin 11.1 g/dL (14.0-18.0); Immature Granulocytes Abs Auto 0.04 10^3/uL (0.00-0.03); Immature Granulocytes Pct Auto 0.5 % (0.0-0.5); Lymphocytes Absolute Auto 2.0 10^3/uL (1.2-3.8); Mean Corpuscular HGB Conc 32.9 g/dL (29.9-35.2); Mean Corpuscular Hemoglobin 32.6 pg (25.9-34.0); Mean Corpuscular Volume 98.8 fL (80.0-94.0); Platelet Count 221 10^3/uL (150-450); Red Blood Count 3.41 10^6/uL (4.70-6.10); White Blood Count 8.9 10^3/uL (4.0-11.0)
[2024-10-03 11:48] LABS: INR 1.35; Prothrombin Time 13.9 sec (9.0-11.6)
[2024-10-03 11:51] LABS: Alanine Aminotransferase 20 U/L (16-63); Albumin Globulin Ratio 0.9; Albumin Level 3.2 g/dL (3.4-5.0); Alkaline Phosphatase 72 U/L (46-116); Anion Gap 13.4; Aspartate Amino Transferase 17 U/L (15-37); Blood Urea Nitrogen 42.0 mg/dL (7.0-18.0); Calcium 8.6 mg/dL (8.5-10.1); Carbon Dioxide 30.2 mmol/L (21.0-32.0); Chloride 103 mmol/L (98-107); Estimated GFR (African America 41 (>=60 mL/min/1.73m^2); Estimated GFR (Non-African Ame 34 (>=60 mL/min/1.73m^2); Globulin 3.5 g/dL; Glucose 154 mg/dL (74-106); Lactate/Lactic Acid 1.2 mmol/L (0.4-2.0); Potassium 4.6 mmol/L (3.5-5.1); Sodium 142 mmol/L (136-145); Total Protein 6.7 g/dL (6.4-8.2)
--- NOTE | 2024-10-03 12:33 | ED.SOB1 ---
HPI - SOB/Dyspnea General Chief Complaint: Shortness of Breath/Dyspnea Stated Complaint: SHORTNESS OF BREATH Time Seen by Provider: 10/03/24 11:07 Source: patient Mode of arrival: walk-in Limitations: no limitations History of Present Illness HPI Narrative: The patient is brought to us by his for a concern of right-sided chest pain that was there only when he took a deep breath yesterday, he had no acute complaint of cough fever or any other concern there was no shortness of breath that is more than his baseline The patient did not have any pain in the ER The pain only was there for few seconds last night and only when the patient take a deep breath The patient actively getting treated for prostate cancer and he was treated for non-Hodgkin lymphoma Related Data Home Medications ?Medication ?Instructions ?Recorded ?Confirmed dapagliflozin propanediol 10 mg 10 mg PO QAM 06/19/24 10/03/24 tablet (Farxiga) digoxin 125 mcg (0.125 mg) tablet 0.125 mg PO QDAY 06/19/24 10/03/24 fluoxetine 20 mg capsule 20 mg PO QAM 06/19/24 06/19/24 insulin aspar prot-insulin aspart 38 unit subcut TIDWMEAL 06/19/24 10/03/24 100 unit/mL (70-30) subcutaneous pen (Novolog Mix 70-30FlexPen U-100) levothyroxine 25 mcg tablet 25 mcg PO QAM 06/19/24 10/03/24 rivaroxaban 15 mg tablet (Xarelto) 20 mg PO BID 06/19/24 10/03/24 tamsulosin 0.4 mg capsule 0.4 mg PO Q24H 06/19/24 10/03/24 atorvastatin 40 mg tablet (Lipitor) 40 mg PO DAILY 10/03/24 10/03/24 levothyroxine 25 mcg tablet 25 mcg PO DAILY 10/03/24 10/03/24 (Euthyrox) losartan 50 mg tablet (Cozaar) 50 mg PO DAILY 10/03/24 10/03/24 metoprolol succinate 25 mg 25 mg PO DAILY 10/03/24 10/03/24 tablet,extended release 24 hr (Toprol XL) omeprazole 20 mg capsule,delayed 20 mg PO DAILY 10/03/24 10/03/24 release Previous Rx's ?Medication ?Instructions ?Recorded furosemide 20 mg tablet (Lasix) 20 mg PO DAILY #30 tabs 06/20/24 Allergies Allergy/AdvReac Type Severity Reaction Status Date / Time Penicillins Allergy Severe Rash Verified 10/03/24 11:03 Review of Systems ROS Status of ROS 10 or more systems reviewed and unremarkable except as noted in history and below [facility] Medical History (Updated 10/03/24 @ 12:38 by Ara Alonso MD) Atrial fibrillation ?I48.91 - Unspecified atrial fibrillation (ICD-10) Non-Hodgkin lymphoma ?C85.90 - Non-Hodgkin lymphoma, unspecified, unspecified site (ICD-10) Viral illness ?B34.9 - Viral infection, unspecified (ICD-10) Acute confusion ?R41.0 - Disorientation, unspecified (ICD-10) Acute kidney injury ?N17.9 - Acute kidney failure, unspecified (ICD-10) Acute hyperkalemia ?E87.5 - Hyperkalemia (ICD-10) Prostate CA ?C61 - Malignant neoplasm of prostate (ICD-10) Pacemaker ?Z95.0 - Presence of cardiac pacemaker (ICD-10) Hyperlipidemia ?E78.5 - Hyperlipidemia, unspecified (ICD-10) Diabetes ?E11.9 - Type 2 diabetes mellitus without complications (ICD-10) Afib ?I48.91 - Unspecified atrial fibrillation (ICD-10) Hypertension ?I10 - Essential (primary) hypertension (ICD-10) Surgical History (Updated 06/19/24 @ 20:24 by Betzy Palma RN) Hx of tonsillectomy ?Z90.89 - Acquired absence of other organs (ICD-10) Family History (Updated 06/19/24 @ 20:25 by Betzy Palma RN) Mother Family history of myocardial infarction Family history of stroke Family history of diabetes mellitus Brother Family history of cancer Social History (Updated 06/19/24 @ 20:26 by Betzy Palma RN) Within the past year, how often did you have a drink containing alcohol: never Score interpretation: A score less than 4 is consistent with normal alcohol consumption. Smoking status: Never smoker Non-prescribed substance use: denies use Previous occupational history: body shop Known occupational exposures/hazards: Yes Known occupational exposures/hazards details: dust, paint Highest level of school completed/degree received: 10th grade Are you now , , , , never or living with a partner: In a typical week, how many times do you talk on the telephone with family, friends, or neighbors: 3 or more times per week How often do you get together with friends or relatives: 3 or more times per week How often do you attend catholic or gnosticist services: 4 or more times per year Little interest or pleasure in doing things: not at all Feeling down, depressed, or hopeless: not at all Feel stressed/tense/nervous/anxious/difficulty sleeping: not at all Do you think of yourself as: straight/heterosexual Gender Identity: male Exam Narrative Exam Narrative: Nurses notes and vital signs reviewed and patient is not hypoxic. General: Well-appearing and in no apparent distress. Skin: Warm, dry, no pallor noted. No rash. Head: Normocephalic, atraumatic. Neck: Supple, non-tender. Eye: Pupils are equal, round and EOMI. No scleral icterus. Ears, Nose, Mouth, and Throat: TM are clear, no nasal mucosal hypertrophy. Oral mucosa is moist, no posterior oropharynx erythema, uvula is mid-line Cardiovascular: Regular Rate and Rhythm without murmur, gallop or rub. Respiratory: No accessory muscle use or respiratory distress. Lungs are clear to auscultation, no wheezing, rales or rhonchi Chest Wall: no tenderness Back: No midline thoracic or lumbar vertebral tenderness. No CVA tenderness Musculoskeletal: normal ROM, no calf or popliteal tenderness, no lower extremity edema/swelling GI: Abdomen is soft, non-distended. Normal bowel sounds. No masses appreciated. No tenderness to palpation. No rebound, guarding, or rigidity noted. Constitutional Vital Signs, click to edit/add: Last Vital Signs Temp 98.1 F 10/03/24 10:57 Pulse 58 L 10/03/24 10:57 Resp 18 10/03/24 10:57 BP 148/65 H 10/03/24 10:57 Pulse Ox 94 L 10/03/24 10:57 O2 Del Method Room Air 10/03/24 10:57 Course Vital Signs Vital signs: Vital Signs Temperature 98.1 F 10/03/24 10:57 Pulse Rate 58 L 10/03/24 10:57 Respiratory Rate 18 10/03/24 10:57 Blood Pressure 148/65 H 10/03/24 10:57 Pulse Oximetry 94 L 10/03/24 10:57 Oxygen Delivery Method Room Air 10/03/24 10:57 Temperature 98.1 F 10/03/24 10:57 Pulse Rate 58 L 10/03/24 10:57 Respiratory Rate 18 10/03/24 10:57 Blood Pressure 148/65 H 10/03/24 10:57 Pulse Oximetry 94 L 10/03/24 10:57 Oxygen Delivery Method Room Air 10/03/24 10:57 MDM - SOB/Dyspnea MDM Narrative Medical decision making narrative: The patient EKG showing paced rhythm with a heart rate of [address] elevation or depression or any acute finding compared to the patient old EKGs The patient CBC and chemistry as well as troponin repeated twice showed no acute pathology His presentation is mostly secondary to musculoskeletal pain specially with the pain not being active in the ER The patient is to follow up with primary care physician in next 2-3 days or to return to the emergency department should any of the signs or symptoms worsen or new symptoms develop. The patient agrees with the following Diagnosis and Treatment plan and the patient will be discharged home. Lab Data Labs: Lab Results 10/03/24 10/03/24 Range/Units 11:25 12:31 WBC 8.9 (4.0-11.0) 10^3/uL RBC 3.41 L (4.70-6.10) 10^6/uL Hgb 11.1 L (14.0-18.0) g/dL Hct 33.7 L (42.0-54.0) % MCV 98.8 H (80.0-94.0) fL MCH 32.6 (25.9-34.0) pg MCHC 32.9 (29.9-35.2) g/dL RDW 13.9 (11.0-15.0) % Plt Count 221 (150-450) 10^3/uL MPV 10.1 (9.5-13.5) fL Neut % (Auto) 56.6 (43.0-75.0) % Lymph % (Auto) 22.0 (20.5-60.0) % [place] % (Auto) 12.3 H (1.7-12.0) % Eos % (Auto) 7.9 H (0.9-7.0) % Baso % (Auto) 0.7 (0.2-2.0) % Neut # (Auto) 5.0 (1.4-6.5) 10^3/uL Lymph # (Auto) 2.0 (1.2-3.8) 10^3/uL [place] # (Auto) 1.1 H (0.3-0.8) 10^3/uL Eos # (Auto) 0.7 (0.0-0.7) 10^3/uL Baso # (Auto) 0.1 (0.0-0.1) 10^3/uL Abs Immat Gran (auto) 0.04 H (0.00-0.03) 10^3/uL Imm/Tot Granulo (auto) 0.5 (0.0-0.5) % PT 13.9 H (9.0-11.6) sec INR 1.35 D-Dimer 0.31 (<=0.59) mg/L FEU Sodium 142 (136-145) mmol/L Potassium 4.6 (3.5-5.1) mmol/L Chloride 103 (98-107) mmol/L Carbon Dioxide 30.2 (21.0-32.0) mmol/L Anion Gap 13.4 BUN 42.0 H (7.0-18.0) mg/dL Creatinine 1.89 H (0.70-1.30) mg/dL Est GFR ( Amer) 41 L (>=60 mL/min/1.73m^2) Est GFR (Non-Af Amer) 34 L (>=60 mL/min/1.73m^2) BUN/Creatinine Ratio 22.2 Glucose 154 H (74-106) mg/dL Lactate 1.2 (0.4-2.0) mmol/L Calcium 8.6 (8.5-10.1) mg/dL Total Bilirubin 0.4 (0.2-1.0) mg/dL AST 17 (15-37) U/L ALT 20 (16-63) U/L Alkaline Phosphatase 72 (46-116) U/L Troponin I High Sens 36.5 36.1 (4.0-76.1) pg/mL Total Protein 6.7 (6.4-8.2) g/dL Albumin 3.2 L (3.4-5.0) g/dL Globulin 3.5 g/dL Albumin/Globulin Ratio 0.9 Discharge Plan Discharge Chief Complaint: Shortness of Breath/Dyspnea Clinical Impression: Atypical chest pain Patient Disposition: Home, Self-Care Time of Disposition Decision: 12:38 Condition: Good Prescriptions / Home Meds: No Action levothyroxine 25 mcg tablet 25 mcg PO QAM tamsulosin 0.4 mg capsule 0.4 mg PO Q24H digoxin 125 mcg (0.125 mg) tablet 0.125 mg PO QDAY fluoxetine 20 mg capsule 20 mg PO QAM insulin asp prt-insulin aspart [Novolog Mix 70-30FlexPen U-100] 100 unit/mL (70-30) insulin pen 38 unit SUBCUT TIDWMEAL Xarelto 15 mg tablet 20 mg PO BID dapagliflozin propanediol [Farxiga] 10 mg tablet 10 mg PO QAM Rx Instructions: with breakfast furosemide [Lasix] 20 mg tablet 20 mg PO DAILY Qty: 30 11RF levothyroxine [Euthyrox] 25 mcg tablet 25 mcg PO DAILY losartan [Cozaar] 50 mg tablet 50 mg PO DAILY omeprazole 20 mg capsule,delayed release(DR/EC) 20 mg PO DAILY metoprolol succinate [Toprol XL] 25 mg tablet extended release 24 hr 25 mg PO DAILY atorvastatin [Lipitor] 40 mg tablet 40 mg PO DAILY Print Language: Martiniquais Instructions: Chest Pain (ED) Referrals: CHEPE BENTLEY [Primary Care Provider, Family Practice] - 1 week
--- NOTE | 2024-10-03 12:37 | PC.NURSE ---
pt refused pain medication, denies pain at this time
[2024-10-03] MEDS: HEPARIN SODIUM (PORCINE) PF LOCK FLUSH 500 UNIT/5 ML SYRINGE IV (13:01)
[2024-10-03 13:02] VITALS: BP 109/61; PULSE 74; O2SAT 94
== END 2024-10-03 13:08 | disposition home or self-care (01) ==
PROVIDERS: Emergency Provider Emergency Medicine; PCP Nurse Practitioner Family
DX: R07.89 Other chest pain (principal); R06.02 Shortness of breath; C61 Malignant neoplasm of prostate; Z85.72 Personal history of non-Hodgkin lymphomas
CPT/HCPCS: 36415; 71045; 80053; 83605; 84484; 85025; 85378; 85610; 93005; 99285; J1642